=== PATIENT | male | born 1940 | race Caucasian/White ===

== ENCOUNTER 2024-10-21 19:53 | Emergency (ER) | payer MEDICARE, SELFPAY ==
[2024-10-21] VITALS (17 sets, daily range): BP systolic 85–134; BP diastolic 41–68; PULSE 79–91; RESP 14–24; TEMP 36.8; O2SAT 90–97
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
--- NOTE | ~2024-10-21 | CT_ITS ---
EXAMINATION: CT cervical spine wo con DATE: 10/21/2024 21:21 INDICATION: fall TECHNIQUE: Computed tomography (CT) of the cervical spine was performed without intravenous contrast. Automated exposure control and iterative reconstruction technique were employed. The dose-length pro duct was 433.39 mGy-cm. COMPARISON: None. FINDINGS: Vertebral Body Alignment: Intact. Craniocervical and atlantoaxial alignment: Moderate degenerative change. Alignment intact. Osseous structures/fracture: No evidence of a lytic or blastic process in the visualized spine. No e vidence of acute fracture. Cervical soft tissues: The paraspinal soft tissues planes are maintained. Septal thickening in the gerber ngs. Old left-sided rib fractures with partially visualized screw and plate fixation Degenerative changes: Multilevel severe degenerative disc disease. Multilevel mild facet arthropathy. Multilevel severe bilateral neural foraminal narrowing secondary to degenerative changes. Multilevel moderate central canal narrowing secondary to degenerative change. IMPRESSION: No acute fracture or traumatic malalignment in the cervical spine. Mild interstitial edema. Reviewed, dictated and finalized at location K. OMER SOLUTIONS SPECIALIST
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
[2024-10-21] MEDS: ONDANSETRON INJ 4 MG/2 ML VIAL IV PUSH (22:17)
[2024-10-21] MEDS: MORPHINE SULFATE (*CRX) 4 MG/ML INJ IV PUSH (22:17)
[2024-10-22 01:15] VITALS: BP 127/87; PULSE 76; RESP 16; TEMP 37.2; O2SAT 98
== END 2024-10-22 01:16 ==
PROVIDERS: Emergency Provider Emergency Medicine
DX: K56.41 Fecal impaction (principal); S32.82XD Multiple fractures of pelvis without disruption of pelvic ring, subsequent encounter for fracture with routine healing; W06.XXXA Fall from bed, initial encounter
CPT/HCPCS: 70450; 72125; 72192; 96374; 96375; 99284; J2270; J2405

== ENCOUNTER 2024-10-31 07:59 | Emergency (ER) | payer MEDICARE, SELFPAY ==
[2024-10-31 08:04] VITALS: BP 129/65; PULSE 86; RESP 18; TEMP 36.8; O2SAT 94
[2024-10-31 08:29] LABS: Basophils Absolute Auto 0.1 K/mm3 (0.0-0.1); Basophils Percent Auto 0.4 % (0.2-1.2); Eosinophils Absolute Auto 1.8 K/mm3 (0-0.3); Hemoglobin 10.5 g/dL (14.0-18.0); Immature Granulocyte Absolute 0.04 K/mm3 (0.00-0.031); Immature Granulocyte Percent A 0.3 % (0-0.5); Lymphocytes Absolute Auto 2.53 K/mm3 (0.9-3.2); Lymphocytes Percent Auto 19.5 % (18.3-44.2); Mean Corpuscular HGB Conc 32.8 g/dl (32-36); Mean Corpuscular Hemoglobin 30.5 pg (26-34); Mean Platelet Volume 9.6 fl (7.4-10.4); Monocytes Absolute Auto 0.9 K/mm3 (0.1-0.6); Monocytes Percent Auto 7.2 % (2.6-8.5); Neutrophils Absolute Auto 7.6 K/mm3 (1.3-6.7); Neutrophils Percent Auto 58.6 % (45.5-73.1); Platelet Count Result 490 k/mm3 (150-375); Red Blood Count 3.44 M/mm3 (4.6-6.20); Red Cell Distribution Width 18.2 % (11.5-14.5)
[2024-10-31 08:40] LABS: Alanine Aminotransferase 17 U/L (6-50); Alkaline Phosphatase 198 U/L (38-126); Anion Gap 2 mmol/L (4-12); Aspartate Amino Transferase 19 U/L (17-59); Bilirubin,Total 0.5 mg/dL (0.2-1.3); Blood Urea Nitrogen 13 mg/dL (9-20); Calcium 8.5 mg/dL (8.4-10.2); Carbon Dioxide 29 mmol/L (22-30); Chloride 104 mmol/L (98-107); Estimated CRCL calculation 94 ml/min; Estimated Glomerular Filt Rate > 60; Glucose 103 mg/dL (65-110); Potassium 4.4 mmol/L (3.4-5.0); Sodium 135 mmol/L (137-145)
--- NOTE | 2024-10-31 10:06 | ED_ITS ---
HPI - Skin/Abscess/Foreign Bdy General Chief complaint: Skin/Abscess/Foreign Body Stated complaint: gtube infection? Time Seen by Provider: 10/31/24 08:01 History of Present Illness HPI narrative: Patient is an 84-year-old male who presents ER for a evaluation of his G-tube. The tube was reinserted through his previous stoma several days ago. Since then he has developed redness and pustules. No fevers or chills or sweats. Patient not been given any topical or oral antibiotic. Related Data Home Medications ?Medication ?Instructions ?Recorded ?Confirmed ?Last Taken ?Type acetaminophen 500 mg tablet 1,000 mg feeding tube Q8H PRN 10/21/24 10/25/24 10/19/24 13:05 History fever or pain bisacodyl 10 mg rectal suppository 10 mg RECTAL DAILY PRN constipation 10/21/24 10/25/24 Unknown History cholecalciferol (vitamin D3) 25 1,000 unit PO DAILY 10/21/24 10/25/24 10/19/24 08:30 History mcg (1,000 unit) tablet ipratropium 0.5 mg-albuterol 3 mg 3 ml inhalation Q6H PRN shortness 10/21/24 10/21/24 Unknown History (2.5 mg base)/3 mL nebulization of breath or wheezing soln oxycodone 5 mg tablet 5 mg feeding tube Q6H PRN pain 10/21/24 10/25/24 Unknown History polyethylene glycol 3350 17 gram 17 g PO DAILY 10/21/24 10/25/24 10/19/24 08:30 History oral powder packet tamsulosin 0.4 mg capsule 0.4 mg PO DAILY 10/21/24 10/25/24 10/19/24 08:30 History trazodone 150 mg tablet 75 mg PO HS 10/21/24 10/25/24 10/18/24 20:55 History Allergies Allergy/AdvReac Type Severity Reaction Status Date / Time No Known Allergies Allergy Verified 10/25/24 10:29 Review of Systems 2 Constitutional: Constitutional: Reports no additional constitutional complaints PMFSH Past Medical History Medical History (Updated 10/31/24 @ 10:35 by Kd Watkins MD) History of gastrostomy tube placement Gait abnormality Surgical History Surgical History (Updated 10/25/24 @ 13:27 by Juan Rodriguez, DO) History of colon resection History of exploratory laparotomy History of splenectomy Social History Social History (System 10/22/24 @ 07:53 by Amilcar Porter) Smoking status: Former smoker Tobacco type: cigarettes Additional smoking assessment comments: quit smoking 50yrs ago Alcohol intake: current Drinks per week: 3 Substance use: never Do You Feel Safe in your Home?: Yes Lack of Transportation: No Lack of Food: Never True Current Housing: I Have Housing Concerned About Future Housing: No Difficulty Paying Gas/Electric Bills: No Difficulty Paying for Meds: No Currently Unemployed: No Education: High School Diploma/GED Difficulty w/ Childcare or Family Care: No Living arrangements: other Additional living arrangements comments: REHAB. Spiritual care concerns: No Exam 2 Narrative: GENERAL: Well-appearing, well-nourished, and in no acute distress. HEAD: Normocephalic, atraumatic. ENT: Mucous membranes moist. CHEST: Clear to auscultation. No respiratory distress. HEART: Regular rate and rhythm. Normal peripheral pulses. ABDOMEN: Soft, nontender, nondistended. EXTREMITIES: Normal range of motion. No edema. SKIN: Warm, dry. Pustules around the G-tube site with mild erythema of the skin without particular tenderness. Mild redness moving along the border of the ribs and abdomen but no vesicles. NEURO: Alert and oriented x3. PSYCH: Normal mood and affect. Course Course Emergency Course: Discharge back to facility. Will start on bactrim DS, topical bacitracin as well. Vital Signs Vital signs: Vital Signs Temperature 98.3 F 10/31/24 08:04 Pulse Rate 86 10/31/24 08:04 Respiratory Rate 18 10/31/24 08:04 Blood Pressure 129/65 10/31/24 08:04 Pulse Oximetry 94 10/31/24 08:04 Oxygen Delivery Room Air 10/31/24 08:04 Temperature 98.3 F 10/31/24 08:04 Pulse Rate 86 10/31/24 08:04 Respiratory Rate 18 10/31/24 08:04 Blood Pressure 129/65 10/31/24 08:04 Pulse Oximetry 94 10/31/24 08:04 Oxygen Delivery Room Air 10/31/24 08:04 MDM - Skin/Abscess/Foreign Bdy Lab Data 10/31/24 08:24 10/31/24 08:24 Labs: Lab Results 10/31/24 Range/Units 08:24 WBC 13.0 H (4.5-10.0) K/mm3 RBC 3.44 L (4.6-6.20) M/mm3 Hgb 10.5 L (14.0-18.0) g/dL Hct 32.0 L (42.0-52.0) % MCV 93.0 D (80-100) fl MCH 30.5 (26-34) pg MCHC 32.8 (32-36) g/dl RDW 18.2 H (11.5-14.5) % Plt Count 490 H (150-375) k/mm3 MPV 9.6 (7.4-10.4) fl Immature Gran % (Auto) 0.3 (0-0.5) % Neut % (Auto) 58.6 (45.5-73.1) % Lymph % (Auto) 19.5 (18.3-44.2) % Harding % (Auto) 7.2 (2.6-8.5) % Eos % (Auto) 14.0 H (0-4.4) % Baso % (Auto) 0.4 (0.2-1.2) % Lymph # (Auto) 2.53 (0.9-3.2) K/mm3 Harding # (Auto) 0.9 H (0.1-0.6) K/mm3 Eos # (Auto) 1.8 H (0-0.3) K/mm3 Baso # (Auto) 0.1 (0.0-0.1) K/mm3 Abs Immat Gran (auto) 0.04 H (0.00-0.031) K/mm3 Absolute Neuts (auto) 7.6 H (1.3-6.7) K/mm3 Absolute Nucleated RBC 0.000 (0.0-0.012) K/mm3 Nucleated RBC % 0.0 (0.0-0.2) % Sodium 135 L (137-145) mmol/L Potassium 4.4 (3.4-5.0) mmol/L Chloride 104 (98-107) mmol/L Carbon Dioxide 29 (22-30) mmol/L Anion Gap 2 L (4-12) mmol/L BUN 13 (9-20) mg/dL Creatinine 0.50 L (0.7-1.3) mg/dL Estim Creat Clear Calc 94 ml/min Estimated GFR > 60 (59 - ) Glucose 103 (65-110) mg/dL Calcium 8.5 (8.4-10.2) mg/dL Total Bilirubin 0.5 (0.2-1.3) mg/dL AST 19 (17-59) U/L ALT 17 (6-50) U/L Alkaline Phosphatase 198 H (38-126) U/L Total Protein 6.0 L (6.3-8.2) g/dL Albumin 3.0 L (3.5-5.1) g/dL Discharge Plan Discharge Clinical Impression: Abdominal wall cellulitis Patient Disposition: Home, Self-Care Condition: Stable Instructions: Cellulitis (ED) Additional Instructions: Return to the ER if your wound is becoming more red, have fever 100.4? F, have additional concerns. Patient Language: Macedonian Prescriptions: New bacitracin 500 unit/gram ointment 1 applic topical TID Qty: 14 0RF sulfamethoxazole-trimethoprim [Bactrim DS] 800-160 mg tablet 1 tablet PO Q12H Qty: 14 0RF No Action acetaminophen 500 mg tablet 1,000 mg feeding tube Q8H PRN (Reason: fever or pain) ipratropium-albuterol 0.5 mg-3 mg(2.5 mg base)/3 mL solution for nebulization 3 ml inhalation Q6H PRN (Reason: shortness of breath or wheezing) bisacodyl 10 mg suppository 10 mg RECTAL DAILY PRN (Reason: constipation) oxycodone 5 mg tablet 5 mg feeding tube Q6H PRN (Reason: pain) polyethylene glycol 3350 17 gram powder in packet 17 g PO DAILY tamsulosin 0.4 mg capsule 0.4 mg PO DAILY cholecalciferol (vitamin D3) 25 mcg (1,000 unit) tablet 1,000 unit PO DAILY trazodone 150 mg tablet 75 mg PO HS Follow-up/Referrals: Mark Rhodes MD [Primary Care Provider] - 1 Week
[2024-10-31 10:36] VITALS: BP 125/77; PULSE 74; RESP 18; O2SAT 94
[2024-10-31] MEDS: SULFAMETHOXAZOLE/TRIMETHOPRIM 800/160 MG DS TABLET 1 TAB PO (11:28)
[2024-10-31 11:39] VITALS: BP 132/78; PULSE 99; RESP 18; O2SAT 95
--- OUTSIDE RECORDS SUMMARY | 2024-11-07 04:53 | XMS_ITS | Clinical Summary ---
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 Transcath Thpy (09/14/2024 7:43 AM COUNTY PROGRAM TECHNICIAN) Anatomical Region Laterality Modality X-Ray Angiograph y 09/14/2024 6:41 AM COUNTY PROGRAM TECHNICIAN Impressions 09/17/2024 5:40 PM COUNTY PROGRAM TECHNICIAN Impression: 1.Aortogram and bilateral angiogram examination of the bilateral common iliac arteries and second and third order branches. Irregularity/spasm of distal vessels, no active contrast extravasation. 2.Successful empiric embolization of the bilateral internal iliac arteries with Gelfoam, as described above. Report dictated by Jacob Merritt MD, PhD (radiology equipment servicer). > Dictated by Jacob Merritt MD (Sales Representative [employer]) 09/14/2024 6:41 AM I, Arsenio Sahni MD have personally reviewed and interpreted this examination/study. > Interpreting Provider: Arsenio Sahni MD on 09/17/2024 5:40 PM Narrative 09/17/2024 5:40 PM COUNTY PROGRAM TECHNICIAN PROCEDURE: ??IR EMBOLIZATION TRANSCATH THPY, DATE/TIME OF EXAM: ??09/14/2024 4:13 AM, LOCATION ??[facility] History: 42 year old male with polytrauma with multi compartmental hemorrhage, active extravasation both sides pelvis, branches artery, on CT imaging, [facility] image-guided aortogram, possible embolization, and related interventions. Operators: 1.Dr. Arsenio Sahni, Attending Physician 2.Dr. Jacob Merritt, Resident Physician Anesthesia: General anesthesia. Procedure: 1.Ultrasound-guided access of the right common femoral artery was interpreted approach. 2.Lower abdominal aortic and pelvic angiogram. 3.Selective catheterization of the left common iliac artery (1st order) and angiogram. 4.Selective catheterization of the left internal iliac artery (2nd order) and angiogram. 5.Empiric embolization of the left internal iliac artery with Gelfoam under fluoroscopic guidance. 6.Post-embolization angiogram of the left common iliac arteries and its branches. 7.Ultrasound-guided access of the left common femoral artery with retrograde approach. 8.Selective catheterization of the right common iliac artery (1st order) and angiogram. 9.Selective catheterization of the right internal iliac artery (2nd order) and angiogram. 10.Empiric embolization of the right internal iliac artery with Gelfoam under fluoroscopic guidance. 11.Post-embolization angiogram of the right common iliac artery and its branches. 12.Sheath angiogram of the bilateral common femoral arteries. 13.Hemostasis with bilateral placement of 6-Micronesian Angio-Seal closure device is. Fluoroscopic time: 25.3 minutes ?Contrast: 85 mL of Isovue-300 Procedure in detail: ?? Patient anonymous at time of procedure, procedure was performed as an emergency. The patient was brought to the angiography suite and placed supine on the table. The right groin was prepped and draped in the usual sterile fashion. Extruder Operator Horizontal radiograph of the pelvis was obtained and was unremarkable. Pre procedure time out was performed. The patient received intravenous Versed and Fentanyl for conscious sedation. A qualified radiology nurse monitored the patient s vital signs throughout the procedure. Limited ultrasound of the right common femoral artery demonstrated a patent vessel, and the level of its bifurcation was identified. A haider scale image was documented. The right common femoral artery was accessed using a micropuncture needle. The needle entry was documented. ??Following a series of exchanges, a 5-Micronesian vascular sheath was placed. Using a 5 Micronesian Omniflush catheter, a lower abdominal aortic and pelvic angiogram was obtained. The angiogram demonstrated patent internal and external iliac vessels with discernible active extravasation. Limited ultrasound of the left common femoral artery demonstrated a patent vessel, and the level of its bifurcation was identified. A haider scale image was documented. The left ??common femoral artery was accessed using a micropuncture needle. The needle entry was documented. ??Following a series of exchanges, a 5-Micronesian vascular sheath was placed. The left common iliac artery was selectively catheterized with a 4-Micronesian Cobra catheters and angiogram was obtained, which demonstrated patent external and internal iliac arteries. The left internal iliac artery was selectively catheterized with the 4-Micronesian Cobra ??catheter and angiogram was obtained, which demonstrated irregularity of the distal vasculature/spasm, with no active contrast extravasation. Empiric embolization of the left internal iliac artery was then performed with Gelfoam under fluoroscopic guidance. Post-embolization angiogram of the left internal iliac artery demonstrated near stasis of flow to the proximal vessels with distal pruning. Several attempts were made to cannulate the right internal iliac artery. The tortuous nature of the aorta/bifurcation and iliac vessels, these attempts were not successful. Given the emergent nature of the procedure, decision was made to proceed with left groin femoral access to cannulate the right internal iliac. Limited ultrasound of the right common femoral artery demonstrated a patent vessel, and the level of its bifurcation was identified. A haider scale image was documented. The right common femoral artery was accessed using a micropuncture needle. The needle entry was documented. ??Following a series of exchanges, a 5-Micronesian vascular sheath was placed. The right common iliac artery was selectively catheterized with a 4-Micronesian Cobra catheters and angiogram was obtained, which demonstrated irregularity of the distal vasculature/spasm, with no active contrast extravasation. The right external iliac artery was selectively catheterized with the a 5-Micronesian VA2 and 4-Micronesian Cobra catheters and angiogram was obtained, which demonstrated no active contrast extravasation. The right internal iliac artery was selectively catheterized with the 4-Micronesian Cobra ??catheter and angiogram was obtained, which demonstrated active contrast extravasation. Embolization of the right internal iliac artery was then performed with Gelfoam under fluoroscopic guidance. Post-embolization angiogram of the right internal iliac artery demonstrated near stasis of flow to the proximal vessels with distal pruning. A sheath angiogram of the right and left common femoral artery was unremarkable with access above its bifurcation overlying the femoral head. Hemostasis was achieved with a 6-Micronesian Micronesian Angio-Seal closure device. Sterile dressing was applied. The patient tolerated the procedure well and was transferred to SICU in stable condition. There were no immediate complications associated with the procedure. Procedure Note Arsenio Sahni MD - 09/17/2024 PROCEDURE: IR EMBOLIZATION TRANSCATH THPY, DATE/TIME OF EXAM:09/14/2024 4:13 AM, LOCATION [facility] History: 42 year old male with polytrauma with multi compartmental hemorrhage, active extravasation both sides pelvis, branches artery, onCT imaging, [facility] aort[facility], possibleembolization, and related interventions. Operators: 1.Dr. Arsenio Sahni, Attending Physician 2.Dr. Jacob Merritt, Resident Physician Anesthesia: General anesthesia. Procedure: 1.Ultrasound-guided access of the right common femoral artery was interpreted approach. 2.Lower abdominal aortic and pelvic angiogram. 3.Selective catheterization of the left common iliac artery (1st order)and angiogram. 4.Selective catheterization of the left internal iliac artery (2ndorder) and angiogram. 5.Empiric embolization of the left internal iliac artery with Gelfoamunder fluoroscopic guidance. 6.Post-embolization angiogram of the left common iliac arteries and its branches. 7.Ultrasound-guided access of the left common femoral artery with retrograde approach. 8.Selective catheterization of the right common iliac artery (1st order) and angiogram. 9.Selective catheterization of the right internal iliac artery (2ndorder) and angiogram. 10.Empiric embolization of the right internal iliac artery with Gelfoam under fluoroscopic guidance. 11.Post-embolization angiogram of the right common iliac artery and its branches. 12.Sheath angiogram of the bilateral common femoral arteries. 13.Hemostasis with bilateral placement of 6-Micronesian Angio-Seal closure device is. Fluoroscopic time: 25.3 minutes Contrast: 85 mL of Isovue-300 Procedure in detail: Patient anonymous at time of procedure, procedure was performed as an emergency. The patient was brought to the angiography suite and placed supine on the table. The right groin was prepped and draped in the usual sterile fashion. Extruder Operator Horizontal radiograph of the pelvis was obtained and was unremarkable. Pre procedure time out was performed. The patient received intravenous Versed and Fentanyl for conscious sedation. A qualified radiology nurse monitored the patient s vital signs throughout the procedure. Limited ultrasound of the right common femoral artery demonstrated apatent vessel, and the level of its bifurcation was identified. A haider scaleimage was documented. The right common femoral artery was accessed using a micropuncture needle. The needle entry was documented. Following aseries of exchanges, a 5-Micronesian vascular sheath was placed. Using a 5 Micronesian Omniflush catheter, a lower abdominal aortic and pelvic angiogram was obtained. The angiogram demonstrated patent internal and external iliac vessels with discernible active extravasation. Limited ultrasound of the left common femoral artery demonstrated apatent vessel, and the level of its bifurcation was identified. A haider scaleimage was documented. The left common femoral artery was accessed using a micropuncture needle. The needle entry was documented. Following aseries of exchanges, a 5-Micronesian vascular sheath was placed. The left common iliac artery was selectively catheterized with a4-Micronesian Cobra catheters and angiogram was obtained, which demonstrated patent external and internal iliac arteries. The left internal iliac artery was selectively catheterized with the 4-Micronesian Cobra catheter and angiogram was obtained, which demonstrated irregularity of the distal vasculature/spasm, with no active contrast extravasation. Empiric embolization of the left internal iliac artery was thenperformed with Gelfoam under fluoroscopic guidance. Post-embolization angiogram of the left internal iliac artery demonstrated near stasis of flow to the proximal vessels with distal pruning. Several attempts were made to cannulate the right internal iliac artery. The tortuous nature of the aorta/bifurcation and iliac vessels, these attempts were not successful. Given the emergent nature of theprocedure, decision was made to proceed with left groin femoral access to cannulate the right internal iliac. Limited ultrasound of the right common femoral artery demonstrated apatent vessel, and the level of its bifurcation was identified. A haider scaleimage was documented. The right common femoral artery was accessed using a micropuncture needle. The needle entry was documented. Following aseries of exchanges, a 5-Micronesian vascular sheath was placed. The right common iliac artery was selectively catheterized with a4-Micronesian Cobra catheters and angiogram was obtained, which demonstratedirregularity of the distal vasculature/spasm, with no active contrast extravasation. The right external iliac artery was selectively catheterized with the a 5-Micronesian VA2 and 4-Micronesian Cobra catheters and angiogram was obtained,which demonstrated no active contrast extravasation. The right internal iliac artery was selectively catheterized with the 4-Micronesian Cobra catheter and angiogram was obtained, which demonstrated active contrast extravasation. Embolization of the right internal iliac artery was then performed with Gelfoam under fluoroscopic guidance. Post-embolization angiogram of the right internal iliac artery demonstrated near stasis of flow to the proximal vessels with distal pruning. A sheath angiogram of the right and left common femoral artery was unremarkable with access above its bifurcation overlying the femoralhead. Hemostasis was achieved with a 6-Micronesian Micronesian Angio-Seal closuredevice. Sterile dressing was applied. The patient tolerated the procedure well and was transferred to SICU in stable condition. There were no immediate complications associated withthe procedure. Impression: 1.Aortogram and bilateral angiogram examination of the bilateral common iliac arteries and second and third order branches. Irregularity/spasmof distal vessels, no active contrast extravasation. 2.Successful empiric embolization of the bilateral internal iliacarteries with Gelfoam, as described above. Report dictated by Jacob Merritt MD, PhD (radiology equipment servicer). > Dictated by Jacob Merritt MD (Sales Representative [employer]) 46:41 AM I, Arsenio Sahni MD have personally reviewed and interpreted this examination/study. > Interpreting Provider: Arsenio Sahni MD on 09/17/2024 5:40 PM Kendal Demarco MD IR ORDERABLES * PREPARE FFP UNIT(S), 6 Units (09/14/2024 5:04 AM COUNTY PROGRAM TECHNICIAN) Unit Description Thawed Plasma 5D [facility] Unit ABO A [facility] Unit Rh POS [facility] Product Number [id number] [facility] Unit Donor # [id number] [facility] Unit Status transfused [facility] Product [facility] [id number] [facility] Blood Type Barcode 6200 [facility] Expiration Date [facility] Unit Description Thawed Plasma 5D [facility] Unit ABO A [facility] Unit POS [facility] Product Number [id number] [facility] Unit Donor # [id number] [facility] Unit Status released [facility] Product [facility] [id number] [facility] Blood Type Barcode 6200 [facility] Expiration Date [facility] Unit Description Thawed Plasma 5D [facility] Unit ABO A [facility] Unit POS [facility] Product Number [id number] [facility] Unit Donor # [id number] [facility] Unit Status released [facility] Product [facility] [id number] [facility] Blood Type Barcode 6200 [facility] Expiration Date [facility] Unit Description Thawed Plasma 5D [facility] Unit ABO A [facility] Unit POS [facility] Product [facility] [id number] [facility] Unit Donor # [id number] [facility] Unit Status transfused [facility] Product [facility] [id number] [facility] Blood Type Barcode 6200 [facility] Expiration Date [facility] Unit Description Thawed Plasma 5D [facility] Unit ABO A [facility] Unit POS [facility] Product Number [id number] [facility] Unit Donor # [id number] [facility] Unit Status released [facility] Product [facility] [id number] [facility] Blood Type Barcode 6200 [facility] Expiration Date [facility] Unit Description Thawed Plasma 5D [facility] Unit ABO AB [facility] Unit POS [facility] Product Number [id number] [facility] Unit Donor # [id number] [facility] Unit Status transfused [facility] Product Code [id number] [facility] Blood Type Barcode 8400 [facility] Expiration Date [facility] Blood Bank BLOOD SPECIMEN / Unknown 09/14/2024 12:27 AM COUNTY PROGRAM TECHNICIAN Vivi Braxton MD LAB - BLOOD BANK ORD ERAFRANCISCO Performing Organization Address [facility]/ZIP Co de Phone Number [facility] [address] [place] [address], [place] [phone] * PREPARE PLATELET PHERESIS UNIT(S), 1 Units (09/14/2024 5:00 AM COUNTY PROGRAM TECHNICIAN) Unit Description LR PLT Phere B7 [facility] Unit ABO O [facility] Unit Rh POS [facility] Product Number P27 [facility] Unit Donor # [id number] [facility] Unit Status released [facility] Product Code [id number] [facility] Blood Type Barcode 5100 [facility] Expiration Date [id number] S BLOOD BANK LAB Blood Bank BLOOD SPECIMEN / Unknown 09/14/2024 12:27 AM COUNTY PROGRAM TECHNICIAN Vivi Braxton MD LAB - BLOOD BANK ORD [place] Performing Organization Address [facility]/ZIP Co de Phone Number [facility] [address] [place] [address], [facility] [phone] * PATHOLOGY TISSUE (09/14/2024 3:31 AM COUNTY PROGRAM TECHNICIAN) Case Report Surgical Pathology Report ? Case: [id number] ? Authorizing Provider: ??Kendal Demarco MD ? Collected: ? 09/14/2024 03:31 AM ? Ordering Location: ? [facility] ?Received: ?09/14/2024 08:07 AM ? Pathologist: ? Pippa Keene MD ? Specimen: ?Spleen ? 09/15/2024 8:31 AM [facility] Final Diagnosis Spleen, splenectomy: - Capsular disruption with hemorrhage and red pulp expansion consistent with trauma history 09/15/2024 8:31 AM [facility] Microscopic Description and Comment Microscopic examination substantiates the above captioned diagnosis. 09/15/2024 8:31 AM [facility] Clinical History Traumatic injury 09/15/2024 8:31 AM [facility] Gross Description The requisition and specimen container(s) are identified with the patient's trauma designation, [facility] . Received fresh, specimen A , consists of a 219 g, 17.6 x 7.8 x 3.0 cm spleen surfaced by a haider-brown, smooth, dusky capsule with focal areas of bull-white stippling. There is a 7.4 x 3.5 cm transverse capsular tear present, which extends from the hilum and has a moderate amount of attached red-brown clotted blood. The specimen is step sectioned. The cut surfaces show red-brown, homogenous, splenic parenchyma with focal areas of extravasated blood extending throughout the spleen. Commission Clerk sections are submitted in three cassettes labeled as follows: A1 soft tissue and vessel margins from the hilum, en face A2 section of capsular tear A3 additional section of splenic parenchyma with intraparenchymal hemorrhage. RB 09/15/2024 8:31 AM [facility] Pathologist Location at [facility] 09/15/2024 8:31 AM [facility] Disclaimer The performance characteristics of all immunohistochemical and indirect immunofluorescence stains (if any) cited in this report were determined by the Histopathology Laboratory of [facility]. Some of these tests were developed by our own laboratory and have not been cleared or approved by the US Food and Drug Administration. The FDA does not require this test to go through premarket FDA review. These tests are used for clinical purposes. They should not be regarded as investigational or for research. This laboratory is certified under the Clinical Laboratory Improvement Amendments (CLIA) as qualified to perform high complexity clinical laboratory testing. This case has been personally reviewed and interpreted by the attending (teaching) pathologist. 09/15/2024 8:31 AM [facility] Embedded Images 09/15/2024 8:31 AM [facility] Biopsy, Excision ENTIRE SPLEEN / Unknown 09/14/2024 3:31 AM COUNTY PROGRAM TECHNICIAN 09/14/2024 8:07 AM COUNTY PROGRAM TECHNICIAN Comment:Pre-op diagnosis: TRAUMA Kendal Demarco MD LAB - PATHOLOGY/CYTO LOGY ORDERABLES Performing Organization Address City/State/[facility] Co de Phone Number [facility] [address] [phone] * TRANSFUSE RED BLOOD CELL LEUKOREDUCED UNIT(S) (09/14/2024 2:50 AM COUNTY PROGRAM TECHNICIAN) Nitish Mcclellan DO NURSING - BLOOD PROD TRANSFUSION * TRANSFUSE FRESH FROZEN PLASMA UNIT(S) (09/14/2024 2:50 AM COUNTY PROGRAM TECHNICIAN) Nitish Mcclellan DO NURSING - BLOOD PROD TRANSFUSION * TRANSFUSE RED BLOOD CELL LEUKOREDUCED UNIT(S) (09/14/2024 2:41 AM COUNTY PROGRAM TECHNICIAN) Ntiish Mcclellan DO NURSING - BLOOD PROD TRANSFUSION * TRANSFUSE FRESH FROZEN PLASMA UNIT(S) (09/14/2024 2:41 AM COUNTY PROGRAM TECHNICIAN) Nitish Mcclellan DO NURSING - BLOOD PROD TRANSFUSION * IV PLACEMENT PERFORMABLE (09/14/2024 2:29 AM COUNTY PROGRAM TECHNICIAN) Narrative Elise Braun DO - 09/14/2024 2:29 AM COUNTY PROGRAM TECHNICIAN Elise Braun DO ? 09/14/2024 ??2:29 AM Peripheral IV Line Placement: Patient Location: ??OR Insertion Time: ??09/14/2024 1:50 AM Procedure: IV start ([id number]) Procedure Section: ?? Skin Prep: alcohol. Orientation: left Location: forearm Local Anesthetic Used? ??No Catheter Gauge: 16 Number of Attempts: 1. Procedure Tolerance: performed while patient under general anesthesia. Staff Section ? Anesthesia Provider: Nitish Mcclellan DO, Performed the procedure Nitish Mcclellan DO GENERAL ANESTHESIA O RDERABLES * ARTERIAL LINE PERFORMABLE (09/14/2024 2:28 AM COUNTY PROGRAM TECHNICIAN) Narrative Elise Braun DO - 09/14/2024 2:28 AM COUNTY PROGRAM TECHNICIAN Elise Braun DO ? 09/14/2024 ??2:29 AM Arterial Line Placement Procedure Note Patient Location: OR. Insertion Time: 09/14/2024 1:50 AM Procedure: Arterial Line ([id number]) Procedure Section ?? Indications: continuous blood pressure monitoring, hypotension and blood sampling needed. Consent: informed consent could not be obtained due to the patient's condition, urgency of situation, and/or lack of family members to sign consent. Skin Prep: Chloraprep. Orientation: Right. Site: radial. Site Identification: ultrasound guided with sterile sleeve and gel. Sterile Technique: cap and mask. Gauge: 20. Catheter Length: 1 and 3/4 inch. Catheter Type: Arrow. Seldinger Technique Used? ??Yes Number of Attempts: 1. Line Secured with: Tegaderm. Procedure Tolerance: tolerated well. Events: none. Patient Sedated? ??Yes Local Anesthetic Used? ??No Sedation Types: general anesthesia Staff Section ? Anesthesia Provider: Elise Braun DO, Performed the procedure ? Provider #1: Nitish Mcclellan DO. Nitish Mcclellan DO GENERAL ANESTHESIA O RDERABLES * TRANSFUSE RED BLOOD CELL LEUKOREDUCED UNIT(S) (09/14/2024 2:26 AM COUNTY PROGRAM TECHNICIAN) Nitish Mcclellan DO NURSING - BLOOD PROD TRANSFUSION * TRANSFUSE FRESH FROZEN PLASMA UNIT(S) (09/14/2024 2:08 AM COUNTY PROGRAM TECHNICIAN) Nitish Mcclellan DO NURSING - BLOOD PROD TRANSFUSION * 1 Units (09/14/2024 1:26 AM COUNTY PROGRAM TECHNICIAN) Unit Description LR Whole BLood [facility] Unit ABO O [facility] Unit Rh POS [facility] Product Number [id number] [facility] Unit Donor # [id number] [facility] Unit Status transfused [facility] Product Code [id number] [facility] Blood Type Barcode 5100 [facility] Expiration Date S BLOOD BANK LAB Unit Description LR Whole BLood [facility] Unit ABO O [facility] Unit Rh POS [facility] Product Number [id number] [facility] Unit Donor # [id number] [facility] Unit Status transfused [facility] Product Code [id number] [facility] Blood Type Barcode 5100 [facility] Expiration Date S BLOOD BANK LAB Blood Bank BLOOD SPECIMEN / Unknown 09/14/2024 12:27 AM COUNTY PROGRAM TECHNICIAN Kendal Demarco MD LAB - BLOOD BANK ORD ERABLES [facility] [address] [place] [address], [facility] [phone] * CT THORAX ABDOMEN PELVIS W CONT - Abdominal - Pelvis trauma, blunt/penetrating (09/14/2024 12:42 AMCST) Anatomical Region Laterality Modality Chest, Abdomen, Pelvis Computed Tomography 09/14/2024 12:5 3 AM COUNTY PROGRAM TECHNICIAN Impressions 09/14/2024 6:09 AM COUNTY PROGRAM TECHNICIAN Impression: Multiple traumatic injuries. 1.Residual left moderate volume pneumothorax with a small amount of hemorrhage in the left pleural space. There are multiple pulmonary contusions in the left lung with left lower lobe atelectasis. There are multiple traumatic pneumatoceles/lacerations in the left upper and lower lobes at the site of rib fractures. 2.Traumatic defects in the left chest wall at the site of rib fractures with disruption of the intercostal fascial planes (series 4 image 60, 82). 3.Pneumomediastinum. 4.Multiple splenic lacerations measuring 2 to 3 cm in depth consistent with a grade 2 splenic injury. There is a small amount of perisplenic hemorrhage. There are foci of contrast blush along the posterior medial aspect of the inferior spleen which appears to expand on the delayed images consistent with active bleeding. 5.Small Hyperdense focus layering in the dependent small bowel in the right hemiabdomen which is not definitively noted on the delayed image. This could represent small amount of hemorrhage (series 5 image 113, series 9 image 57). 6.Large volume pneumoperitoneum. This is favored to be secondary to a diaphragmatic injury to the left hemidiaphragm (series 8 image 71, series 3 image 153 as well as at series 9 image 66 and series 8 image 52). The diaphragmatic defect measures approximately 4 cm. There is no obvious injury to the stomach or bowel to suggest that the source of the pneumoperitoneum is from the bowel. 7.Fat tissue contusion in the left paracolic gutter with contrast blush expanding on the delayed imaging consistent with active bleeding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
--- OUTSIDE RECORDS SUMMARY | 2024-11-07 04:53 | XMS_ITS | Referral Summary ---
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 [address] [place] [address], [facility] [phone] from Last 3 Months Advance Directives * Full Code (Latest Code Status on File) Date Activated Date Inactivated Comments 09/14/2024 4:38 AM 10/20/2024 5:22 PM Care Teams Transport Coordinator Relationship Specialty Start Date End Date Unknown, Provider PCP - General 10/28/24 Ivis Marie, GLORIA Registered Nurse 09/14/24
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
--- OUTSIDE RECORDS SUMMARY | 2024-11-07 04:55 | XMS_ITS | Encounter Summary ---
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 BLOOD STAT 09/14/2024 12:13 AM ACCOUNTS CLERK ALCOHOL ETHYL BLOOD STAT 09/14/2024 12:13 AM ACCOUNTS CLERK documented in this encounter Results * APHERESIS/TRANSFUSION ORDER (10/22/2024 1:12 PM ACCOUNTS CLERK) Narrative 10/22/2024 1:12 PM ACCOUNTS CLERK Ordered by an unspecified provider. Scanned Document NURSING - VITAL SIGN S AND ASSESSMENT * (ABNORMAL) CBC W AUTO DIFFERENTIAL (10/17/2024 12:16 PM ACCOUNTS CLERK) WBC 10.1 4.0 - 10.7 x10E9/L 10/17/2024 12:54 PM [facility] RBC Count 4.08(L) 4.30 - 5.80 x10E12/L 10/17/2024 12:54 PM [facility] Hemoglobin 12.0(L) 13.3 - 17.5 g/dL 10/17/2024 12:54 PM [facility] Hematocrit 38.0(L) 38.7 - 51.1 % 10/17/2024 12:54 PM [facility] MCV 93.1 80.0 - 98.0 fL 10/17/2024 12:54 PM [facility] MCH 29.4 26.7 - 33.6 pg 10/17/2024 12:54 PM [facility] MCHC 31.6(L) 31.7 - 36.3 g/dL 10/17/2024 12:54 PM [facility] RDW-CV 17.6(H) 11.3 - 14.8 % 10/17/2024 12:54 PM [facility] Platelet Count 428(H) 150 - 420 x10E9/L 10/17/2024 12:54 PM [facility] MPV 10.8 7.8 - 11.4 fL 10/17/2024 12:54 PM [facility] Neutrophil % 39.4(L) 41.0 - 74.0 % 10/17/2024 12:54 PM [facility] Lymphocyte % 39.0 17.0 - 47.0 % 10/17/2024 12:54 PM [facility] Monocyte % 9.4 3.0 - 11.0 % 10/17/2024 12:54 PM [facility] Eosinophil % 10.5(H) 0.0 - 7.0 % 10/17/2024 12:54 PM [facility] Basophil % 1.4 0.0 - 1.6 % 10/17/2024 12:54 PM [facility] Immature Granulocytes % 0.3 0.0 - 1.0 % 10/17/2024 12:54 PM [facility] Neutrophil Absolute 3.96 1.60 - 7.50 x10E9/L 10/17/2024 12:54 PM [facility] Lymphocyte Absolute 3.92 1.00 - 4.40 x10E9/L 10/17/2024 12:54 PM ACCOUNTS CLERK [facility] Monocyte Absolute 0.94 0.15 - 1.00 x10E9/L 10/17/2024 12:54 PM ACCOUNTS CLERK [facility] Eosinophil Absolute 1.06(H) 0.00 - 0.60 x10E9/L 10/17/2024 12:54 PM ACCOUNTS CLERK [facility] Basophil Absolute 0.14(H) 0.00 - 0.13 x10E9/L 10/17/2024 12:54 PM ACCOUNTS CLERK [facility] Blood BLOOD SPECIMEN / Unknown Lab Venipuncture / Unknown 10/17/2024 12:16 PM ACCOUNTS CLERK 10/17/2024 12:45 PM ACCOUNTS CLERK Kosta Corral MAKE UP OPERATOR [facility] - HEMATOLOG Y ORDERABLES [address] [phone], [facility] [phone] * PHOSPHORUS BLOOD (10/17/2024 12:16 PM ACCOUNTS CLERK) Phosphorus 3.4 2.8 - 5.1 mg/dL 10/17/2024 1:15 PM ACCOUNTS CLERK [facility] Blood BLOOD SPECIMEN / Unknown Lab Venipuncture / Unknown 10/17/2024 12:16 PM ACCOUNTS CLERK 10/17/2024 12:45 PM ACCOUNTS CLERK Kosta Corral MAKE UP OPERATOR [facility] - CHEMISTRY ORDERABLES [address] [phone], [facility] [phone] * MAGNESIUM BLOOD (10/17/2024 12:16 PM ACCOUNTS CLERK) Magnesium 2.1 1.6 - 2.6 mg/dL 10/17/2024 1:15 PM ACCOUNTS CLERK [facility] Blood BLOOD SPECIMEN / Unknown Lab Venipuncture / Unknown 10/17/2024 12:16 PM ACCOUNTS CLERK 10/17/2024 12:45 PM ACCOUNTS CLERK Kosta Medina Shayna MAKE UP OPERATOR [facility] - CHEMISTRY ORDERABLES [facility] [address] [phone], [facility] [phone] * (ABNORMAL) BASIC METABOLIC PANEL (CALCIUM TOTAL) (10/17/2024 12:16 PM ACCOUNTS CLERK) BUN 14 7 - 26 mg/dL 10/17/2024 1:15 PM [facility] Creatinine 0.66(L) 0.71 - 1.16 mg/dL 10/17/2024 1:15 PM [facility] Sodium 139 136 - 145 mmol/L 10/17/2024 1:15 PM [facility] Potassium 4.3 3.5 - 4.5 mmol/L 10/17/2024 1:15 PM [facility] Chloride 102 98 - 107 mmol/L 10/17/2024 1:15 PM [facility] CO2 30(H) 22 - 29 mmol/L 10/17/2024 1:15 PM [facility] Glucose 100(H) 70 - 99 mg/dL 10/17/2024 1:15 PM [facility] Calcium 9.3 8.4 - 10.2 mg/dL 10/17/2024 1:15 PM [facility] Anion Gap 7 6 - 16 10/17/2024 1:15 PM [facility] BUN/Creatinine Ratio 21 7 - 23 10/17/2024 1:15 PM [facility] Osmolality Calculated 289 275 - 295 mOsm/kg 10/17/2024 1:15 PM [facility] eGFR by CKD-EPI >90 >=90 mL/min/1.7 3 m2 10/17/2024 1:15 PM [facility] Blood BLOOD SPECIMEN / Unknown Lab Venipuncture / Unknown 10/17/2024 12:16 PM ACCOUNTS CLERK 10/17/2024 12:45 PM ACCOUNTS CLERK Kosta R Shayna MAKE UP OPERATOR [facility] [facility] - CHEMISTRY ORDERABLES [facility] [address] [place] [phone], [facility] [phone] * PHOSPHORUS BLOOD (10/14/2024 5:53 AM ACCOUNTS CLERK) Phosphorus 3.7 2.8 - 5.1 mg/dL 10/14/2024 7:20 AM [facility] Blood BLOOD SPECIMEN / Unknown Lab Venipuncture / Unknown 10/14/2024 5:53 AM ACCOUNTS CLERK 10/14/2024 6:41 AM ACCOUNTS CLERK Kosta Corral MAKE UP OPERATOR [facility] [facility] - CHEMISTRY ORDERABLES Performing Organization Address City/[facility]/ZIP Co de Phone Number [address] [phone], [facility] [phone] * MAGNESIUM BLOOD (10/14/2024 5:53 AM ACCOUNTS CLERK) Magnesium 2.0 1.6 - 2.6 mg/dL 10/14/2024 7:20 AM [facility] Blood BLOOD SPECIMEN / Unknown Lab Venipuncture / Unknown 10/14/2024 5:53 AM ACCOUNTS CLERK 10/14/2024 6:41 AM ACCOUNTS CLERK Kosta Corral MAKE UP OPERATOR [facility] - CHEMISTRY ORDERABLES Performing Organization Address City/[facility]/ZIP Co de Phone Number [address] [phone], [facility] [phone] * (ABNORMAL) BASIC METABOLIC PANEL (CALCIUM TOTAL) (10/14/2024 5:53 AM ACCOUNTS CLERK) BUN 16 7 - 26 mg/dL 10/14/2024 7:20 AM [facility] Creatinine 0.58(L) 0.71 - 1.16 mg/dL 10/14/2024 7:20 AM [facility] Sodium 136 136 - 145 mmol/L 10/14/2024 7:20 AM [facility] Potassium 4.3 3.5 - 4.5 mmol/L 10/14/2024 7:20 AM [facility] Chloride 101 98 - 107 mmol/L 10/14/2024 7:20 AM [facility] CO2 29 22 - 29 mmol/L 10/14/2024 7:20 AM [facility] Glucose 116(H) 70 - 99 mg/dL 10/14/2024 7:20 AM [facility] Calcium 8.9 8.4 - 10.2 mg/dL 10/14/2024 7:20 AM [facility] Anion Gap 6 6 - 16 10/14/2024 7:20 AM [facility] BUN/Creatinine Ratio 28(H) 7 - 23 10/14/2024 7:20 AM [facility] Osmolality Calculated 284 275 - 295 mOsm/kg 10/14/2024 7:20 AM [facility] eGFR by CKD-EPI >90 >=90 mL/min/1.7 3 m2 10/14/2024 7:20 AM [facility] Blood BLOOD SPECIMEN / Unknown Lab Venipuncture / Unknown 10/14/2024 5:53 AM ACCOUNTS CLERK 10/14/2024 6:41 AM ACCOUNTS CLERK Kosta Corral MAKE UP OPERATOR [facility] [facility] - CHEMISTRY ORDERABLES [facility] [address] [place] [phone], [facility] [phone] * XR Scapula Left (10/13/2024 2:20 PM ACCOUNTS CLERK) Anatomical Region Laterality Modality Upper Extremity Digital Radiogra phy 10/14/2024 3:03 PM ACCOUNTS CLERK Narrative 10/14/2024 3:06 PM ACCOUNTS CLERK PROCEDURE: ??XR SCAPULA LEFT DATE/TIME OF EXAM: [...] XR Pelvis Judet Views (10/13/2024 2:19 PM ACCOUNTS CLERK) Anatomical Region Laterality Modality Pelvis Digital Radiogra phy 10/14/2024 2:28 PM ACCOUNTS CLERK Impressions 10/14/2024 2:31 PM ACCOUNTS CLERK IMPRESSION: Partially visualized multiple healing pelvic fractures as described above. > Dictated by Amira Rodriguez MD, (residential director). > Interpreting Provider: Maryanne Horner MD on 10/14/2024 2:31 PM Narrative 10/14/2024 2:31 PM ACCOUNTS CLERK PROCEDURE: ??XR PELVIS AP W INLET OUTLET, XR PELVIS JUDET VIEWS DATE/TIME OF EXAM: ??10/13/2024 2:19 PM CLINICAL INFORMATION: None relevant/not provided if blank. Indication: S32.9XXA: Closed displaced fracture of pelvis, unspecified part of pelvis, initial encounter ([facility]) Additional History: COMPARISON: 10/06/2024. Judet Views: Redemonstration [...] of pelvis, unspecifiedpart of pelvis, initial encounter ([facility]) Additional History: COMPARISON: 10/06/2024. Judet Views: Redemonstration [...] describedabove. > Dictated by Amira Rodriguez MD, (residential director). > Interpreting Provider: Maryanne Horner MD on 10/14/2024 2:31 PM Gabriela Perales PA-C DIAGNOSTIC IMAGING ORDERABLES * XR Pelvis AP W Inlet Outlet (10/13/2024 2:19 PM ACCOUNTS CLERK) Anatomical Region Laterality Modality Pelvis Digital Radiogra phy 10/14/2024 2:28 PM ACCOUNTS CLERK Impressions 10/14/2024 2:31 PM ACCOUNTS CLERK IMPRESSION: Partially visualized multiple healing pelvic fractures as described above. > Dictated by Amira Rodriguez MD, (residential director). > Interpreting Provider: Maryanne Horner MD on 10/14/2024 2:31 PM Narrative 10/14/2024 2:31 PM ACCOUNTS CLERK PROCEDURE: ??XR PELVIS AP W INLET OUTLET, XR PELVIS JUDET VIEWS DATE/TIME OF EXAM: ??10/13/2024 2:19 PM CLINICAL INFORMATION: None relevant/not provided if blank. Indication: S32.9XXA: Closed displaced fracture of pelvis, unspecified part of pelvis, initial encounter ([facility]) Additional History: COMPARISON: 10/06/2024. Judet Views: Redemonstration [...] of pelvis, unspecifiedpart of pelvis, initial encounter ([facility]) Additional History: COMPARISON: 10/06/2024. Judet Views: Redemonstration [...] describedabove. > Dictated by Amira Rodriguez MD, (residential director). > Interpreting Provider: Maryanne Horner MD on 10/14/2024 2:31 PM Gabriela Perales PA-C DIAGNOSTIC IMAGING ORDERABLES * PHOSPHORUS BLOOD (10/12/2024 3:40 PM ACCOUNTS CLERK) Phosphorus 3.8 2.8 - 5.1 mg/dL 10/12/2024 4:10 PM ACCOUNTS CLERK [facility] Blood BLOOD SPECIMEN / Unknown Lab Venipuncture / Unknown 10/12/2024 3:40 PM ACCOUNTS CLERK 10/12/2024 3:44 PM ACCOUNTS CLERK Kosta Medina Shayna MAKE UP OPERATOR [facility] - CHEMISTRY ORDERABLES [facility] [address] [place] [address], [place] [phone] * MAGNESIUM BLOOD (10/12/2024 3:40 PM ACCOUNTS CLERK) Magnesium 2.2 1.6 - 2.6 mg/dL 10/12/2024 4:10 PM [facility] Blood BLOOD SPECIMEN / Unknown Lab Venipuncture / Unknown 10/12/2024 3:40 PM ACCOUNTS CLERK 10/12/2024 3:44 PM ACCOUNTS CLERK Kosta Medina Shayna MAKE UP OPERATOR [facility] [facility] - CHEMISTRY ORDERABLES Performing Organization Address [facility]/State/ZIP Co de Phone Number [facility] [address] [place] [phone], [facility] [phone] * (ABNORMAL) BASIC METABOLIC PANEL (CALCIUM TOTAL) (10/12/2024 3:40 PM ACCOUNTS CLERK) BUN 16 7 - 26 mg/dL 10/12/2024 4:10 PM [facility] Creatinine 0.57(L) 0.71 - 1.16 mg/dL 10/12/2024 4:10 PM [facility] Sodium 134(L) 136 - 145 mmol/L 10/12/2024 4:10 PM [facility] Potassium 4.5 3.5 - 4.5 mmol/L 10/12/2024 4:10 PM [facility] Chloride 105 98 - 107 mmol/L 10/12/2024 4:10 PM [facility] CO2 25 22 - 29 mmol/L 10/12/2024 4:10 PM [facility] Glucose 105(H) 70 - 99 mg/dL 10/12/2024 4:10 PM [facility] Calcium 9.2 8.4 - 10.2 mg/dL 10/12/2024 4:10 PM [facility] Anion Gap 4(L) 6 - 16 10/12/2024 4:10 PM [facility] BUN/Creatinine Ratio 28(H) 7 - 23 10/12/2024 4:10 PM ACCOUNTS CLERK [facility] Osmolality Calculated 280 275 - 295 mOsm/kg 10/12/2024 4:10 PM ACCOUNTS CLERK [facility] eGFR by CKD-EPI >90 >=90 mL/min/1.7 3 m2 10/12/2024 4:10 PM ACCOUNTS CLERK [facility] Blood BLOOD SPECIMEN / Unknown Lab Venipuncture / Unknown 10/12/2024 3:40 PM ACCOUNTS CLERK 10/12/2024 3:44 PM ACCOUNTS CLERK Kosta Corral MAKE UP OPERATOR [employer] [facility] - CHEMISTRY ORDERABLES [facility] [address] [place] [address], [facility] [phone] * CT Cervical Spine Wo Contrast (10/08/2024 3:04 PM ACCOUNTS CLERK) Anatomical Region Laterality Modality Spine Computed Tomogra phy 10/09/2024 11:2 7 AM ACCOUNTS CLERK Impressions 10/11/2024 5:43 PM ACCOUNTS CLERK IMPRESSION: 1.Healing nondisplaced/minimally displaced fracture of the [...] report is dictated by Gigi Michelle DO, (residential director) IJuan MD have personally reviewed and interpreted this examination/study. > Interpreting Provider: Juan Ascencio MD on 10/11/2024 5:43 PM Narrative 10/11/2024 5:43 PM ACCOUNTS CLERK PROCEDURE: ??CT CERVICAL SPINE WO CONTRAST, DATE/TIME OF EXAM: ??10/08/2024 3:04 PM, LOCATION ??[facility] INDICATION: S22.43XA: Multiple fractures of ribs, bilateral, [...] CONTRAST, DATE/TIME OF EXAM:10/08/2024 3:04 PM, LOCATION [facility] INDICATION: S22.43XA: Multiple fractures of ribs, bilateral, [...] report is dictated by Gigi Michelle DO, (residential director) IJuan MD have personally reviewed and interpretedthis examination/study. > Interpreting Provider: Juan Ascencio MD on 10/11/2024 5:43 PM Bong Edmondson MD CT ORDERABLES * (ABNORMAL) CBC W/O DIFFERENTIAL (10/08/2024 7:07 AM ACCOUNTS CLERK) [facility] WBC 9.3 4.0 - 10.7 x10E9/L 10/08/2024 8:08 AM ACCOUNTS CLERK [facility] RBC Count 3.42(L) 4.30 - 5.80 x10E12/L 10/08/2024 8:08 AM [facility] Hemoglobin 10.0(L) 13.3 - 17.5 g/dL 10/08/2024 8:08 AM [facility] Hematocrit 32.3(L) 38.7 - 51.1 % 10/08/2024 8:08 AM [facility] MCV 94.4 80.0 - 98.0 fL 10/08/2024 8:08 AM [facility] MCH 29.2 26.7 - 33.6 pg 10/08/2024 8:08 AM [facility] MCHC 31.0(L) 31.7 - 36.3 g/dL 10/08/2024 8:08 AM [facility] RDW-CV 17.1(H) 11.3 - 14.8 % 10/08/2024 8:08 AM [facility] Platelet Count 837(H) 150 - 420 x10E9/L 10/08/2024 8:08 AM [facility] MPV 10.8 7.8 - 11.4 fL 10/08/2024 8:08 AM [facility] Blood BLOOD SPECIMEN / Unknown Lab Venipuncture / Unknown 10/08/2024 7:07 AM ACCOUNTS CLERK 10/08/2024 7:59 AM ACCOUNTS CLERK Tessa Gonzáles PA-C LAB - HEMATOLOGY ORD ERABLES [place] [id number] [place] [address], [facility] [phone] * MAGNESIUM BLOOD (10/08/2024 7:07 AM ACCOUNTS CLERK) Magnesium 2.2 1.6 - 2.6 mg/dL 10/08/2024 8:29 AM [facility] Blood BLOOD SPECIMEN / Unknown Lab Venipuncture / Unknown 10/08/2024 7:07 AM ACCOUNTS CLERK 10/08/2024 7:58 AM ACCOUNTS CLERK Tessa Gonzáles PA-C LAB - CHEMISTRY ORDE [facility] [address] [place] [address], [facility] [phone] * PHOSPHORUS BLOOD (10/08/2024 7:07 AM ACCOUNTS CLERK) Phosphorus 3.5 2.8 - 5.1 mg/dL 10/08/2024 8:29 AM [facility] Blood BLOOD SPECIMEN / Unknown Lab Venipuncture / Unknown 10/08/2024 7:07 AM ACCOUNTS CLERK 10/08/2024 7:58 AM ACCOUNTS CLERK Tessa Gonzáles PA-C LAB - CHEMISTRY NATYE [facility] [address] [place] [address], [facility] [phone] * (ABNORMAL) BASIC METABOLIC PANEL (CALCIUM TOTAL) (10/08/2024 7:07 AM ACCOUNTS CLERK) BUN 19 7 - 26 mg/dL 10/08/2024 8:29 AM [facility] Creatinine 0.51(L) 0.71 - 1.16 mg/dL 10/08/2024 8:29 AM [facility] Sodium 139 136 - 145 mmol/L 10/08/2024 8:29 AM [facility] Potassium 4.3 3.5 - 4.5 mmol/L 10/08/2024 8:29 AM [facility] Chloride 106 98 - 107 mmol/L 10/08/2024 8:29 AM [facility] CO2 27 22 - 29 mmol/L 10/08/2024 8:29 AM [facility] Glucose 124(H) 70 - 99 mg/dL 10/08/2024 8:29 AM [facility] Calcium 8.6 8.4 - 10.2 mg/dL 10/08/2024 8:29 AM [facility] Anion Gap 6 6 - 16 10/08/2024 8:29 AM [facility] BUN/Creatinine Ratio 37(H) 7 - 23 10/08/2024 8:29 AM [facility] Osmolality Calculated 292 275 - 295 mOsm/kg 10/08/2024 8:29 AM [facility] eGFR by CKD-EPI >90 >=90 mL/min/1.7 3 m2 10/08/2024 8:29 AM ACCOUNTS CLERK [facility] Blood BLOOD SPECIMEN / Unknown Lab Venipuncture / Unknown 10/08/2024 7:07 AM ACCOUNTS CLERK 10/08/2024 7:58 AM ACCOUNTS CLERK Tessa Gonzáles PA-C LAB - CHEMISTRY YUAN JI [facility] [address] [place] [address], [facility] [phone] * XR Pelvis Judet Views (10/06/2024 9:26 PM ACCOUNTS CLERK) Anatomical Region Laterality Modality Pelvis Digital Radiogra phy 10/07/2024 2:29 PM ACCOUNTS CLERK Impressions 10/07/2024 3:32 PM ACCOUNTS CLERK IMPRESSION: Partially visualized multiple healing pelvic fractures as described above. > Dictated by Manjula Bruno MD, (residential director). I, Pratima Haynes MD have personally reviewed and interpreted this examination/study. > Interpreting Provider: Pratima Haynes MD on 10/07/2024 3:32 PM Narrative 10/07/2024 3:32 PM ACCOUNTS CLERK PROCEDURE: ??XR PELVIS AP W INLET OUTLET, XR PELVIS JUDET VIEWS DATE/TIME OF EXAM: ??10/06/2024 9:35 PM CLINICAL INFORMATION: None relevant/not provided if blank. Indication: S32.9XXA: Closed displaced fracture of pelvis, unspecified part of pelvis, initial encounter ([facility]) Additional History: ADDITIONAL CLINICAL INFORMATION: Ordering Provider Reason For Exam: ??fx COMPARISON: X-ray pelvis 09/29/2024. TECHNIQUE: AP and frog lateral views of the pelvis. FINDINGS: Judet Views: Partially visualized healing fractures involving the left superior and inferior pubic rami, right superior pubic ramus, right pubic body, and left sacral ala as described on CT done 09/14/2024. Inlet Outlet views: Partially visualized healing fractures as described above . The femoral heads are well-seated in their respective acetabulum. Joint spaces are preserved. Pubic symphysis is intact. The osseous architecture and density are normal. The SI joints are intact. Procedure Note Pratima Haynes MD - 10/07/2024 PROCEDURE: XR PELVIS AP W INLET OUTLET, XR PELVIS JUDET VIEWS DATE/TIME OF EXAM: 10/06/2024 9:35 PM CLINICAL INFORMATION: None relevant/not provided if blank. Indication: S32.9XXA: Closed displaced fracture of pelvis, unspecifiedpart of pelvis, initial encounter ([facility]) Additional History: ADDITIONAL CLINICAL INFORMATION: Ordering Provider Reason For Exam: fx COMPARISON: X-ray pelvis 09/29/2024. TECHNIQUE: AP and frog lateral views of the pelvis. FINDINGS: Judet Views: Partially visualized healing fractures involving the left superior and inferior pubic rami, right superior pubic ramus, right pubic body, andleft sacral ala as described on CT done 09/14/2024. Inlet Outlet views: Partially visualized healing fractures as described above . The femoral heads are well-seated in their respective acetabulum. Joint spaces are preserved. Pubic symphysis is intact. The osseous architecture anddensity are normal. The SI joints are intact. IMPRESSION: Partially visualized multiple healing pelvic fractures as describedabove. > Dictated by Manjula Bruno MD, (residential director). Pratima Casey MD have personally reviewed and interpreted this examination/study. > Interpreting Provider: Pratima Haynes MD on 10/07/2024 3:32 PM Felicia TREVINO-Michelle DIAGNOSTIC I MAGING ORDERABLES * XR Scapula Left (10/06/2024 9:25 PM ACCOUNTS CLERK) Anatomical Region Laterality Modality Upper Extremity Digital Radiogra phy 10/07/2024 11:1 1 AM ACCOUNTS CLERK Impressions 10/07/2024 11:38 AM ACCOUNTS CLERK IMPRESSION: Unchanged alignment of superior scapular fracture. > Dictated by Valerio Mckay DO, (residential director). Olivia Casey MD have personally reviewed and interpreted this examination/study. > Interpreting Provider: Olivia Polanco MD on 10/07/2024 11:38 AM Narrative 10/07/2024 11:38 AM ACCOUNTS CLERK PROCEDURE: ??XR SCAPULA LEFT DATE/TIME OF EXAM: ??10/06/2024 9:36 PM CLINICAL INFORMATION: None relevant/not provided if blank. Indication: S42.102A: Closed fracture of left scapula, unspecified part of scapula, initial encounter COMPARISON: X-ray scapula 09/29/2024. ? FINDINGS: Redemonstration of left-sided rib fixation plates. Relatively unchanged superior scapular fracture which extends into the acromion process. Procedure Note Olivia Polanco MD - 10/07/2024 PROCEDURE: XR SCAPULA LEFT DATE/TIME OF EXAM: 10/06/2024 9:36 PM CLINICAL INFORMATION: None relevant/not provided if blank. Indication: S42.102A: Closed fracture of left scapula, unspecified partof scapula, initial encounter COMPARISON: X-ray scapula 09/29/2024. FINDINGS: Redemonstration of left-sided rib fixation plates. Relatively unchanged superior scapular fracture which extends into the acromion process. IMPRESSION: Unchanged alignment of superior scapular fracture. > Dictated by Valerio Mckay DO, (residential director). Olivia Casey MD have personally reviewed and interpreted this examination/study. > Interpreting Provider: Olivia Polanco MD on 10/07/2024 11:38 AM Felicia Warren PA-C DIAGNOSTIC I MAGING ORDERABLES * XR Pelvis AP W Inlet Outlet (10/06/2024 9:25 PM ACCOUNTS CLERK) Anatomical Region Laterality Modality Pelvis Digital Radiogra phy 10/07/2024 2:29 PM ACCOUNTS CLERK Impressions 10/07/2024 3:32 PM ACCOUNTS CLERK IMPRESSION: Partially visualized multiple healing pelvic fractures as described above. > Dictated by Manjula Bruno MD, (residential director). Pratima Casey MD have personally reviewed and interpreted this examination/study. > Interpreting Provider: Pratima Haynes MD on 10/07/2024 3:32 PM Narrative 10/07/2024 3:32 PM ACCOUNTS CLERK PROCEDURE: ??XR PELVIS AP W INLET OUTLET, XR PELVIS JUDET VIEWS DATE/TIME OF EXAM: ??10/06/2024 9:35 PM CLINICAL INFORMATION: None relevant/not provided if blank. Indication: S32.9XXA: Closed displaced fracture of pelvis, unspecified part of pelvis, initial encounter ([facility]) Additional History: ADDITIONAL CLINICAL INFORMATION: Ordering Provider Reason For Exam: ??fx COMPARISON: X-ray pelvis 09/29/2024. TECHNIQUE: AP and frog lateral views of the pelvis. FINDINGS: Judet Views: Partially visualized healing fractures involving the left superior and inferior pubic rami, right superior pubic ramus, right pubic body, and left sacral ala as described on CT done 09/14/2024. Inlet Outlet views: Partially visualized healing fractures as described above . The femoral heads are well-seated in their respective acetabulum. Joint spaces are preserved. Pubic symphysis is intact. The osseous architecture and density are normal. The SI joints are intact. Procedure Note Pratima Haynes MD - 10/07/2024 PROCEDURE: XR PELVIS AP W INLET OUTLET, XR PELVIS JUDET VIEWS DATE/TIME OF EXAM: 10/06/2024 9:35 PM CLINICAL INFORMATION: None relevant/not provided if blank. Indication: S32.9XXA: Closed displaced fracture of pelvis, unspecifiedpart of pelvis, initial encounter ([facility]) Additional History: ADDITIONAL CLINICAL INFORMATION: Ordering Provider Reason For Exam: fx COMPARISON: X-ray pelvis 09/29/2024. TECHNIQUE: AP and frog lateral views of the pelvis. FINDINGS: Judet Views: Partially visualized healing fractures involving the left superior and inferior pubic rami, right superior pubic ramus, right pubic body, andleft sacral ala as described on CT done 09/14/2024. Inlet Outlet views: Partially visualized healing fractures as described above . The femoral heads are well-seated in their respective acetabulum. Joint spaces are preserved. Pubic symphysis is intact. The osseous architecture anddensity are normal. The SI joints are intact. IMPRESSION: Partially visualized multiple healing pelvic fractures as describedabove. > Dictated by Manjula Bruno MD, (residential director). I, Pratima Haynes MD have personally reviewed and interpreted this examination/study. > Interpreting Provider: Pratima Haynes MD on 10/07/2024 3:32 PM Felicia Warren PA-C DIAGNOSTIC I MAGING ORDERABLES * SARS-COV-2 (COVID-19) RAPID (10/06/2024 5:22 PM ACCOUNTS CLERK) COVID-19 PCR Not detected Not detected 10/06/20 6:21 PM ACCOUNTS CLERK [facility] Microbiology SPECIMEN FROM NASOPHARYNGEAL STRUCTURE / Unknown Collection / Unknown 10/06/2024 5:22 PM ACCOUNTS CLERK 10/06/2024 5:41 PM ACCOUNTS CLERK Narrative [facility] - 10/06/2024 6:21 PM ACCOUNTS CLERK The [employer] Xpert Xpress SARS-COV-2 has been authorized by [...] - MICROBIOLOGY O RDERABLES Performing Organization Address City/State/[facility] Co de Phone Number [address] [address], [facility] [phone] * SARS-COV-2 (COVID19) + RSV PCR RAPID (10/06/2024 3:08 PM ACCOUNTS CLERK) Pathologist [facility] [place] COVID-19 PCR Not detected Not detected 10/06/20 4:25 PM ACCOUNTS CLERK [facility] RSV PCR Not detected Not detected 10/06/2024 4:25 PM ACCOUNTS CLERK [facility] Microbiology SPECIMEN FROM NASOPHARYNGEAL STRUCTURE / Unknown Collection / Unknown 10/06/2024 3:08 PM ACCOUNTS CLERK 10/06/2024 3:44 PM ACCOUNTS CLERK [facility] - 10/06/2024 4:25 PM ACCOUNTS CLERK This nucleic acid amplification assay has been [...] Demarco MD LAB - MICROBIOLOGY O RDERABLES [facility] [address] [place] [address], [facility] [phone] * (ABNORMAL) CBC W/O DIFFERENTIAL (10/06/2024 6:12 AM ACCOUNTS CLERK) WBC 10.6 4.0 - 10.7 x10E9/L 10/06/2024 7:18 AM [facility] RBC Count 3.27(L) 4.30 - 5.80 x10E12/L 10/06/2024 7:18 AM [facility] Hemoglobin 9.7(L) 13.3 - 17.5 g/dL 10/06/2024 7:18 AM [facility] Hematocrit 31.9(L) 38.7 - 51.1 % 10/06/2024 7:18 AM [facility] MCV 97.6 80.0 - 98.0 fL 10/06/2024 7:18 AM [facility] MCH 29.7 26.7 - 33.6 pg 10/06/2024 7:18 AM [facility] MCHC 30.4(L) 31.7 - 36.3 g/dL 10/06/2024 7:18 AM [facility] RDW-CV 16.7(H) 11.3 - 14.8 % 10/06/2024 7:18 AM [facility] Platelet Count 1,065(HH) 150 - 420 x10E9/L 10/06/2024 7:18 AM [facility] MPV 10.4 7.8 - 11.4 fL 10/06/2024 7:18 AM [facility] NRBC 0.2(H) <=0.0 /100 WBC 10/06/2024 7:18 AM [facility] Blood BLOOD SPECIMEN / Unknown Lab Venipuncture / Unknown 10/06/2024 6:12 AM ACCOUNTS CLERK 10/06/2024 6:55 AM ACCOUNTS CLERK Tessa Gonzáles PA-C LAB - HEMATOLOGY ORD ERABLES [address] [address], [facility] [phone] * PHOSPHORUS BLOOD (10/06/2024 6:12 AM ACCOUNTS CLERK) Phosphorus 4.0 2.8 - 5.1 mg/dL 10/06/2024 7:47 AM ACCOUNTS CLERK [facility] Blood BLOOD SPECIMEN / Unknown Lab Venipuncture / Unknown 10/06/2024 6:12 AM ACCOUNTS CLERK 10/06/2024 7:20 AM ACCOUNTS CLERK Tessa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 ACCOUNTS CLERK Narrative 09/30/2024 11:26 AM ACCOUNTS CLERK PROCEDURE: ??XR PELVIS JUDET VIEWS, XR PELVIS AP W INLET OUTLET DATE/TIME OF EXAM: ??09/29/2024 5:45 PM CLINICAL INFORMATION: None relevant/not provided if blank. Indication: S32.9XXA: Closed displaced fracture of pelvis, unspecified part of pelvis, initial encounter ([facility]) Additional History: ADDITIONAL CLINICAL INFORMATION: Ordering Provider Reason For Exam: ??- B/L pubic root fx extending to anterior tab - L inferior pubic ramus - L Sacral ala fx (accession [id number]), - B/L pubic root fx extending to anterior tab (accession [id number]) COMPARISON: X-ray pelvis 09/21/2024. TECHNIQUE: AP and frog lateral views of the pelvis. FINDINGS/IMPRESSION: Judet views: There is partial visualization of the multiple pelvic fractures described on CT done 09/14/2024 (left superior and inferior pubic rami, right superior pubic ramus, right pubic body, left sacral ala). Inlet outlet views: There is partial visualization of the multiple pelvic fractures as described above. The femoral heads are well-seated in their respective acetabulum. Joint spaces are preserved. Pubic symphysis is intact. The osseous architecture and density are normal. The SI joints are intact. > Dictated by Manjula Bruno MD, (residential director). IPratima MD have personally reviewed and interpreted this examination/study. > Interpreting Provider: Pratima Haynes MD on 09/30/2024 11:26 AM Procedure Note Pratima Haynes MD - 09/30/2024 PROCEDURE: XR PELVIS JUDET VIEWS, XR PELVIS AP W INLET OUTLET DATE/TIME OF EXAM: 09/29/2024 5:45 PM CLINICAL INFORMATION: None relevant/not provided if blank. Indication: S32.9XXA: Closed displaced fracture of pelvis, unspecifiedpart of pelvis, initial encounter ([facility]) Additional History: ADDITIONAL CLINICAL INFORMATION: Ordering Provider Reason For Exam: - B/L pubic root fx extending to anterior tab - L inferior pubic ramus - L Sacral ala fx (accession [id number]), - B/L pubic root fx extending to anterior tab (accession [id number]) COMPARISON: X-ray pelvis 09/21/2024. TECHNIQUE: AP and frog lateral views of the pelvis. FINDINGS/IMPRESSION: Judet views: There is partial visualization of the multiple pelvic fracturesdescribed on CT done 09/14/2024 (left superior and inferior pubic rami, right superior pubic ramus, right pubic body, left sacral ala). Inlet outlet views: There is partial visualization of the multiple pelvic fractures as described above. The femoral heads are well-seated in their respective acetabulum. Joint spaces are preserved. Pubic symphysis is intact. The osseousarchitecture and density are normal. The SI joints are intact. > Dictated by Manjula Bruno MD, (residential director). I, Pratima Haynes MD have personally reviewed and interpreted this examination/study. > Interpreting Provider: Pratima Haynes MD on 09/30/2024 11:26 AM Gabriela Perales PA-C DIAGNOSTIC IMAGING ORDERABLES * XR Pelvis AP W Inlet Outlet (09/29/2024 5:00 PM ACCOUNTS CLERK) Anatomical Region Laterality Modality Pelvis Digital Radiogra phy 09/30/2024 9:51 AM ACCOUNTS CLERK Narrative 09/30/2024 11:26 AM ACCOUNTS CLERK PROCEDURE: ??XR PELVIS JUDET VIEWS, XR PELVIS AP W INLET OUTLET DATE/TIME OF EXAM: ??09/29/2024 5:45 PM CLINICAL INFORMATION: None relevant/not provided if blank. Indication: S32.9XXA: Closed displaced fracture of pelvis, unspecified part of pelvis, initial encounter ([facility]) Additional History: ADDITIONAL CLINICAL INFORMATION: Ordering Provider Reason For Exam: ??- B/L pubic root fx extending to anterior tab - L inferior pubic ramus - L Sacral ala fx (accession [id number]), - B/L pubic root fx extending to anterior tab (accession [id number]) COMPARISON: X-ray pelvis 09/21/2024. TECHNIQUE: AP and frog lateral views of the pelvis. FINDINGS/IMPRESSION: Judet views: There is partial visualization of the multiple pelvic fractures described on CT done 09/14/2024 (left superior and inferior pubic rami, right superior pubic ramus, right pubic body, left sacral ala). Inlet outlet views: There is partial visualization of the multiple pelvic fractures as described above. The femoral heads are well-seated in their respective acetabulum. Joint spaces are preserved. Pubic symphysis is intact. The osseous architecture and density are normal. The SI joints are intact. > Dictated by Manjula Bruno MD, (residential director). Pratima Casey MD have personally reviewed and interpreted this examination/study. > Interpreting Provider: Pratima Haynes MD on 09/30/2024 11:26 AM Procedure Note Pratima Haynes MD - 09/30/2024 PROCEDURE: XR PELVIS JUDET VIEWS, XR PELVIS AP W INLET OUTLET DATE/TIME OF EXAM: 09/29/2024 5:45 PM CLINICAL INFORMATION: None relevant/not provided if blank. Indication: S32.9XXA: Closed displaced fracture of pelvis, unspecifiedpart of pelvis, initial encounter ([facility]) Additional History: ADDITIONAL CLINICAL INFORMATION: Ordering Provider Reason For Exam: - B/L pubic root fx extending to anterior tab - L inferior pubic ramus - L Sacral ala fx (accession [id number]), - B/L pubic root fx extending to anterior tab (accession [id number]) COMPARISON: X-ray pelvis 09/21/2024. TECHNIQUE: AP and frog lateral views of the pelvis. FINDINGS/IMPRESSION: Judet views: There is partial visualization of the multiple pelvic fracturesdescribed on CT done 09/14/2024 (left superior and inferior pubic rami, right superior pubic ramus, right pubic body, left sacral ala). Inlet outlet views: There is partial visualization of the multiple pelvic fractures as described above. The femoral heads are well-seated in their respective acetabulum. Joint spaces are preserved. Pubic symphysis is intact. The osseousarchitecture and density are normal. The SI joints are intact. > Dictated by Manjula Bruno MD, (residential director). Pratima Casey MD have personally reviewed and interpreted this examination/study. > Interpreting Provider: Pratima Haynes MD on 09/30/2024 11:26 AM Gabriela Perales PA-C DIAGNOSTIC IMAGING ORDERABLES * XR Scapula Left (09/29/2024 5:00 PM ACCOUNTS CLERK) Anatomical Region Laterality Modality Upper Extremity Digital Radiogra phy 09/30/2024 10:0 4 AM ACCOUNTS CLERK Impressions 09/30/2024 11:47 AM ACCOUNTS CLERK IMPRESSION: Unchanged in alignment of superior scapular fracture. > Dictated by Manjula Bruno MD, (residential director). Pratima Caesy MD have personally reviewed and interpreted this examination/study. > Interpreting Provider: Pratima Haynes MD on 09/30/2024 11:47 AM Narrative 09/30/2024 11:47 AM ACCOUNTS CLERK PROCEDURE: ??XR SCAPULA LEFT DATE/TIME OF EXAM: ??09/29/2024 5:45 PM CLINICAL INFORMATION: None relevant/not provided if blank. Indication: S42.102A: Closed fracture of left scapula, unspecified part of scapula, initial encounter Additional History: COMPARISON: X-ray scapula 09/21/2024. ? FINDINGS: Redemonstration of left-sided rib fixation plates and skin avila. Redemonstration of moderately displaced superior scapular fracture, alignment similar to prior. Fracture extends into the acromion. Procedure Note Pratima Haynes MD - 09/30/2024 PROCEDURE: XR SCAPULA LEFT DATE/TIME OF EXAM: 09/29/2024 5:45 PM CLINICAL INFORMATION: None relevant/not provided if blank. Indication: S42.102A: Closed fracture of left scapula, unspecified partof scapula, initial encounter Additional History: COMPARISON: X-ray scapula 09/21/2024. FINDINGS: Redemonstration of left-sided rib fixation plates and skin avila. Redemonstration of moderately displaced superior scapular fracture, alignment similar to prior. Fracture extends into the acromion. IMPRESSION: Unchanged in alignment of superior scapular fracture. > Dictated by Manjula Bruno MD, (residential director). Pratima Casey MD have personally reviewed and interpreted this examination/study. > Interpreting Provider: Pratima Haynes MD on 09/30/2024 11:47 AM Gabriela Perales PA-C DIAGNOSTIC IMAGING ORDERABLES * XR Chest 1Vw Portable (09/29/2024 4:29 AM ACCOUNTS CLERK) Anatomical Region Laterality Modality Chest Digital Radiogra phy 09/29/2024 9:33 AM ACCOUNTS CLERK Narrative 09/29/2024 11:33 PM ACCOUNTS CLERK EXAMINATION: XR CHEST 1VW PORTABLE DATE/TIME OF EXAM: ??09/29/2024 4:29 AM, LOCATION ??[facility] HISTORY: S22.43XA: Multiple fractures of ribs, bilateral, initial encounter for closed fracture high oxygen requirement COMPARISON: Chest x-ray 09/28/2024 at 4:52 AM TECHNIQUE: Frontal radiograph of the chest. FINDINGS/IMPRESSION: *Unchanged enteric tube, left-sided surgical drain, left-sided rib fixation plates, skin avila Small to moderate left-sided pleural effusion with associated atelectasis. A component of superimposed infection cannot be excluded. Trace pleural effusion on the right with associated atelectasis. No pneumothorax is visible. The cardiomediastinal silhouette is partially obscured. Report dictated by Valerio Mckay DO (Copper Etcher). Layo Casey MD have personally reviewed and interpreted this examination/study. > Interpreting Provider: Layo Adhikari MD on 09/29/2024 11:33 PM Procedure Note Layo Adhikari MD - 09/29/2024 EXAMINATION: XR CHEST 1VW PORTABLE DATE/TIME OF EXAM: 09/29/2024 4:29 AM, LOCATION [facility] HISTORY: S22.43XA: Multiple fractures of ribs, bilateral, initialencounter for closed fracture high oxygen requirement COMPARISON: Chest x-ray 09/28/2024 at 4:52 AM TECHNIQUE: Frontal radiograph of the chest. FINDINGS/IMPRESSION: *Unchanged enteric tube, left-sided surgical drain, left-sided ribfixation plates, skin avila Small to moderate left-sided pleural effusion with associatedatelectasis. A component of superimposed infection cannot be excluded. Trace pleural effusion on the right with associated atelectasis. No pneumothorax is visible. The cardiomediastinal silhouette is partially obscured. Report dictated by Valerio Mckay DO (Copper Etcher). Layo Casey MD have personally reviewed and interpreted this examination/study. > Interpreting Provider: Layo Adhikari MD on 09/29/2024 11:33 PM Kendal Demarco MD DIAGNOSTIC IMAGING O RDERABLES * PHOSPHORUS BLOOD (09/29/2024 12:18 AM ACCOUNTS CLERK) Phosphorus 3.3 2.8 - 5.1 mg/dL 09/29/2024 1:00 AM [facility] Blood BLOOD SPECIMEN / Unknown Venipuncture / Unknown 09/29/2024 12:18 AM ACCOUNTS CLERK 09/29/2024 12:32 AM ACCOUNTS CLERK Gibran Grande PA-C LAB - CHEMISTRY O RDERABLES Performing Organization Address City/[facility]/ZIP Co de Phone Number [address] [address], [facility] [phone] * MAGNESIUM BLOOD (09/29/2024 12:18 AM ACCOUNTS CLERK) Pathologist [facility] [place] Magnesium 2.4 1.6 - 2.6 mg/dL 09/29/2024 1:00 AM [facility] Blood BLOOD SPECIMEN / Unknown Venipuncture / Unknown 09/29/2024 12:18 AM ACCOUNTS CLERK 09/29/2024 12:32 AM ACCOUNTS CLERK Gibran Grande PA-C LAB - CHEMISTRY O RDERABLES Performing Organization Address [facility] Co de Phone Number [address] [address], [facility] [phone] * (ABNORMAL) CBC W/O DIFFERENTIAL (09/29/2024 12:18 AM ACCOUNTS CLERK) Pathologist [facility] [place] WBC 21.0(H) 4.0 - 10.7 x10E9/L 09/29/2024 1:46 AM [facility] RBC Count 2.80(L) 4.30 - 5.80 x10E12/L 09/29/2024 1:46 AM [facility] Hemoglobin 8.5(L) 13.3 - 17.5 g/dL 09/29/2024 1:46 AM [facility] Hematocrit 27.3(L) 38.7 - 51.1 % 09/29/2024 1:46 AM [facility] MCV 97.5 80.0 - 98.0 fL 09/29/2024 1:46 AM [facility] MCH 30.4 26.7 - 33.6 pg 09/29/2024 1:46 AM [facility] MCHC 31.1(L) 31.7 - 36.3 g/dL 09/29/2024 1:46 AM [facility] RDW-CV 17.7(H) 11.3 - 14.8 % 09/29/2024 1:46 AM [facility] Platelet Count 1,318(HH) 150 - 420 x10E9/L 09/29/2024 1:46 AM [facility] MPV 10.0 7.8 - 11.4 fL 09/29/2024 1:46 AM [facility] NRBC 0.5(H) <=0.0 /100 WBC 09/29/2024 1:46 AM [facility] Blood BLOOD SPECIMEN / Unknown Venipuncture / Unknown 09/29/2024 12:18 AM ACCOUNTS CLERK 09/29/2024 12:32 AM ACCOUNTS CLERK Gibran Grande PA-C LAB - HEMATOLOGY ORDERABLES [place] [phone] [phone] * (ABNORMAL) CALCIUM IONIZED WHOLE BLOOD (09/29/2024 12:18 AM ACCOUNTS CLERK) Calcium Ionized 1.15 mmol/L 09/29/2024 12:47 AM [facility] pH 7.40 7.35 - 7.45 pH 09/29/2024 12:47 AM [facility] Ionized Calcium pH Adjusted 1.15(L) 1.19 - 1.34 mmol/L 09/29/2024 12:47 AM [facility] Blood BLOOD SPECIMEN / Unknown Venipuncture / Unknown 09/29/2024 12:18 AM ACCOUNTS CLERK 09/29/2024 12:28 AM ACCOUNTS CLERK Gibran Grande PA-C LAB - CHEMISTRY O RDERABLES [facility] [address] [place] [address], [facility] [phone] * (ABNORMAL) BASIC METABOLIC PANEL (CALCIUM TOTAL) (09/29/2024 12:18 AM [facility]) BUN 24 7 - 26 mg/dL 09/29/2024 1:00 AM [facility] Creatinine 0.56(L) 0.71 - 1.16 mg/dL 09/29/2024 1:00 AM [facility] Sodium 145 136 - 145 mmol/L 09/29/2024 1:00 AM [facility] Potassium 4.3 3.5 - 4.5 mmol/L 09/29/2024 1:00 AM [facility] Chloride 107 98 - 107 mmol/L 09/29/2024 1:00 AM [facility] CO2 29 22 - 29 mmol/L 09/29/2024 1:00 AM [facility] Glucose 151(H) 70 - 99 mg/dL 09/29/2024 1:00 AM [facility] Calcium 8.0(L) 8.4 - 10.2 mg/dL 09/29/2024 1:00 AM [facility] Anion Gap 9 6 - 16 09/29/2024 1:00 AM [facility] BUN/Creatinine Ratio 43(H) 7 - 23 09/29/2024 1:00 AM [facility] Osmolality Calculated 307(H) 275 - 295 mOsm/kg 09/29/2024 1:00 AM [facility] eGFR by CKD-EPI >90 >=90 mL/min/1.7 3 m2 09/29/2024 1:00 AM [facility] Blood BLOOD SPECIMEN / Unknown Venipuncture / Unknown 09/29/2024 12:18 AM ACCOUNTS CLERK 09/29/2024 12:32 AM [facility] Gibran Grande PA-C LAB - CHEMISTRY O RDERABLES [facility] [address] [place] [address], [facility] [phone] * XR Chest 1Vw Portable (09/28/2024 5:46 AM ACCOUNTS CLERK) Anatomical Region Laterality Modality Chest Digital Radiogra phy 09/28/2024 8:58 AM ACCOUNTS CLERK Narrative 09/28/2024 3:45 PM ACCOUNTS CLERK PROCEDURE: ??XR CHEST 1VW PORTABLE, DATE/TIME OF EXAM: ??09/28/2024 5:46 AM, LOCATION ??[facility] INDICATION: Z97.8: Endotracheal tube present ADDITIONAL CLINICAL INFORMATION: Ordering Provider Reason For Exam: Technologist Note: Additional: COMPARISON: Chest x-ray from 09/26/2024. TECHNIQUE: Frontal radiograph of the chest. FINDINGS/IMPRESSION: *Metallic densities in the oral cavity/upper neck *Unchanged cervical collar, enteric tube, left-sided surgical drain, left-sided rib fixation plates, skin avila Unchanged moderate to large left-sided pleural effusion with associated atelectasis. A component of superimposed infection cannot be excluded. Trace pleural effusion on the right. Otherwise, the right lung is clear. No pneumothorax is visible. The cardiomediastinal silhouette is obscured. Report dictated by Alex Huizar MD, (Copper Etcher). I, Maryanne Horner MD have personally reviewed and interpreted this examination/study. > Interpreting Provider: Maryanne Horner MD on 09/28/2024 3:45 PM Procedure Note Maryanne Horner MD - 09/28/2024 PROCEDURE: XR CHEST 1VW PORTABLE, DATE/TIME OF EXAM: 09/28/2024 5:46AM, LOCATION [facility] INDICATION: Z97.8: Endotracheal tube present ADDITIONAL CLINICAL INFORMATION: Ordering Provider Reason For Exam: Technologist Note: Additional: COMPARISON: Chest x-ray from 09/26/2024. TECHNIQUE: Frontal radiograph of the chest. FINDINGS/IMPRESSION: *Metallic densities in the oral cavity/upper neck *Unchanged cervical collar, enteric tube, left-sided surgical drain, left-sided rib fixation plates, skin avila Unchanged moderate to large left-sided pleural effusion with associated atelectasis. A component of superimposed infection cannot be excluded. Trace pleural effusion on the right. Otherwise, the right lung is clear.No pneumothorax is visible. The cardiomediastinal silhouette is obscured. Report dictated by Alex Huizar MD, (Copper Etcher). I, Maryanne Horner MD have personally reviewed and interpreted this examination/study. > Interpreting Provider: Maryanne Horner MD on 09/28/2024 3:45 PM Kendal Demarco MD DIAGNOSTIC IMAGING O RDERABLES * PHOSPHORUS BLOOD (09/27/2024 11:35 PM ACCOUNTS CLERK) Phosphorus 3.8 2.8 - 5.1 mg/dL 09/28/2024 12:13 AM ACCOUNTS CLERK [facility] Blood BLOOD SPECIMEN / Unknown Venipuncture / Unknown 09/27/2024 11:35 PM ACCOUNTS CLERK 09/27/2024 11:48 PM ACCOUNTS CLERK Gibran Grande PA-C LAB - CHEMISTRY O RDERABLES Performing Organization Address [facility]/ZIP Co de Phone Number [address] [phone], [facility] [phone] * MAGNESIUM BLOOD (09/27/2024 11:35 PM ACCOUNTS CLERK) Magnesium 2.2 1.6 - 2.6 mg/dL 09/28/2024 12:13 AM ACCOUNTS CLERK [facility] Blood BLOOD SPECIMEN / Unknown Venipuncture / Unknown 09/27/2024 11:35 PM ACCOUNTS CLERK 09/27/2024 11:48 PM ACCOUNTS CLERK Gibran Grande PA-C LAB - CHEMISTRY O RDERABLES [address] [address], [facility] [phone] * (ABNORMAL) CBC W/O DIFFERENTIAL (09/27/2024 11:35 PM ACCOUNTS CLERK) WBC 22.2(H) 4.0 - 10.7 x10E9/L 09/28/2024 12:05 AM ACCOUNTS CLERK [facility] RBC Count 2.85(L) 4.30 - 5.80 x10E12/L 09/28/2024 12:05 AM [facility] Hemoglobin 8.8(L) 13.3 - 17.5 g/dL 09/28/2024 12:05 AM [facility] Hematocrit 27.6(L) 38.7 - 51.1 % 09/28/2024 12:05 AM [facility] MCV 96.8 80.0 - 98.0 fL 09/28/2024 12:05 AM [facility] MCH 30.9 26.7 - 33.6 pg 09/28/2024 12:05 AM [facility] MCHC 31.9 31.7 - 36.3 g/dL 09/28/2024 12:05 AM [facility] RDW-CV 18.2(H) 11.3 - 14.8 % 09/28/2024 12:05 AM [facility] Platelet Count 1,328(HH) 150 - 420 x10E9/L 09/28/2024 12:05 AM [facility] MPV 9.9 7.8 - 11.4 fL 09/28/2024 12:05 AM [facility] NRBC 0.8(H) <=0.0 /100 WBC 09/28/2024 12:05 AM [facility] Blood BLOOD SPECIMEN / Unknown Venipuncture / Unknown 09/27/2024 11:35 PM ACCOUNTS CLERK 09/27/2024 11:48 PM ACCOUNTS CLERK Gibran Grande PA-C LAB - HEMATOLOGY ORDERABLES Performing Organization Address City/State/[facility] Co de Phone Number [facility] [address] [place] [phone] [phone] * (ABNORMAL) CALCIUM IONIZED WHOLE BLOOD (09/27/2024 11:35 PM ACCOUNTS CLERK) Calcium Ionized 1.17 mmol/L 09/27/2024 11:50 PM [facility] pH 7.42 7.35 - 7.45 pH 09/27/2024 11:50 PM [facility] Ionized Calcium pH Adjusted 1.18(L) 1.19 - 1.34 mmol/L 09/27/2024 11:50 PM [facility] Blood BLOOD SPECIMEN / Unknown Venipuncture / Unknown 09/27/2024 11:35 PM ACCOUNTS CLERK 09/27/2024 11:47 PM ACCOUNTS CLERK Gibran Murillo Harjinder KHAN LAB - CHEMISTRY O RDERABLES [facility] [address] [place] [address], [facility] [phone] * (ABNORMAL) BASIC METABOLIC PANEL (CALCIUM TOTAL) (09/27/2024 11:35 PM ACCOUNTS CLERK) BUN 22 7 - 26 mg/dL 09/28/2024 12:13 AM [facility] Creatinine 0.63(L) 0.71 - 1.16 mg/dL 09/28/2024 12:13 AM [facility] Sodium 143 136 - 145 mmol/L 09/28/2024 12:13 AM [facility] Potassium 4.5 3.5 - 4.5 mmol/L 09/28/2024 12:13 AM [facility] Chloride 110(H) 98 - 107 mmol/L 09/28/2024 12:13 AM [facility] CO2 27 22 - 29 mmol/L 09/28/2024 12:13 AM [facility] Glucose 95 70 - 99 mg/dL 09/28/2024 12:13 AM [facility] Calcium 8.4 8.4 - 10.2 mg/dL 09/28/2024 12:13 AM [facility] Anion Gap 6 6 - 16 09/28/2024 12:13 AM [facility] BUN/Creatinine Ratio 35(H) 7 - 23 09/28/2024 12:13 AM [facility] Osmolality Calculated 299(H) 275 - 295 mOsm/kg 09/28/2024 12:13 AM [facility] eGFR by CKD-EPI >90 >=90 mL/min/1.7 3 m2 09/28/2024 12:13 AM [facility] Blood BLOOD SPECIMEN / Unknown Venipuncture / Unknown 09/27/2024 11:35 PM ACCOUNTS CLERK 09/27/2024 11:48 PM ACCOUNTS CLERK Gibran Grande PA-C LAB - CHEMISTRY O RDERABLES Performing Organization Address City/[facility]/ZIP Co de Phone Number [facility] [address] [place] [address], [place] [phone] * EKG 12-LEAD (09/27/2024 8:49 AM ACCOUNTS CLERK) Ventricular Rate 148 BPM [facility] MUSE Atrial Rate 296 BPM [facility] MUSE QRS Duration ms 78 ms [facility] MUSE Q-T Interval ms 334 ms [facility] MUSE QTC Calculation (Bezet) 524 ms [facility] MUSE Calculated P [place] 103 degrees [facility] MUSE Calculated R [place] -33 degrees [facility] MUSE Calculated T [place] 118 degrees [facility] MUSE Interpretation EKG ATRIAL FLUTTER WITH 2:1 A-V CONDUCTION LEFT AXIS DEVIATION NONSPECIFIC ST AND T WAVE ABNORMALITY ABNORMAL ECG WHEN COMPARED WITH ECG OF 25-SEP-2024 16:26, atrial flutter has replaced sinus rhythm Confirmed by MAGALY CHE DO ([id number]) on 09/28/2024 3:21:12 PM [facility] MUSE 09/27/2024 8:49 AM ACCOUNTS CLERK 09/28/2024 3:21 PM ACCOUNTS CLERK Kendal Demarco MD ECG ORDERABLES Performing Organization Address [facility]/ZIP Co de Phone Number [facility] M[facility] * (ABNORMAL) BLOOD GASES ART + COOX PANEL (09/27/2024 6:21 AM ACCOUNTS CLERK) pH Arterial 7.45 7.35 - 7.45 pH 09/27/2024 6:31 AM [facility] pO2 Arterial 73(L) 80 - 100 mmHg 09/27/2024 6:31 AM [facility] pCO2 Arterial 39 35 - 45 mmHg 6:31 AM [facility] HCO3 Arterial 27.1 20.0 - 30.0 mmol/L 09/27/2024 6:31 AM [facility] BE Arterial 2.9(H) -2.0 - 2.0 mmol/L 09/27/2024 6:31 AM [facility] Oxyhemoglobin Arterial 94.1 % 09/27/2024 6:31 AM [facility] Dexoyhemoglobin (HHB) % 2.9 % 09/27/2024 6:31 AM [facility] Methemoglobin 1.4 0.0 - 2.0 % 09/27/2024 6:31 AM [facility] Carboxyhemoglobin 1.6 0.0 - 2.0 % 2023 6:31 AM [facility] O2 Content Arterial 12.3 Interpret within clinical context ml/dL 09/27/2024 6:31 AM [facility] Hemoglobin by COOX 9.2(L) 12.0 - 17.6 g/dL 09/27/2024 6:31 AM [facility] O2 Saturation Arterial 97 90 - 100 % 09/27/2024 6:31 AM [facility] FI O2 Arterial 90.0 % 09/27/2024 6:31 AM [facility] Blood, arterial ARTERIAL BLOOD SPECIMEN / Unknown Arterial Puncture / Unknown 09/27/2024 6:21 AM ACCOUNTS CLERK 09/27/2024 6:29 AM [facility] - 09/27/2024 6:31 AM [facility] Carboxyhemoglobin Normal Concentration: Non-smokers: 0-2%; Smokers: 0-9%; Toxic: >20% Kendal Demarco MD LAB - BLOOD GASES OR DERABLES Performing Organization Address City/State/[facility] Co de Phone Number [facility] [address] [place] [phone], [facility] [phone] * PHOSPHORUS BLOOD (09/27/2024 12:18 AM ACCOUNTS CLERK) Phosphorus 2.9 2.8 - 5.1 mg/dL 09/27/2024 12:56 AM [facility] Blood BLOOD SPECIMEN / Unknown Venipuncture / Unknown 09/27/2024 12:18 AM ACCOUNTS CLERK 09/27/2024 12:30 AM ACCOUNTS CLERK Gibran H McKenty PA-C LAB - CHEMISTRY O RDERABLES [facility] [address] [place] [address], [place] [phone] * MAGNESIUM BLOOD (09/27/2024 12:18 AM [facility]) Magnesium 2.3 1.6 - 2.6 mg/dL 09/27/2024 12:56 AM [facility] Blood BLOOD SPECIMEN / Unknown Venipuncture / Unknown 09/27/2024 12:18 AM ACCOUNTS CLERK 09/27/2024 12:30 AM ACCOUNTS CLERK Gibran Grande PA-C LAB - CHEMISTRY O RDERABLES [facility] [address] [place] [address], [place] [phone] * (ABNORMAL) CBC W/O DIFFERENTIAL (09/27/2024 12:18 AM ACCOUNTS CLERK) WBC 24.4(H) 4.0 - 10.7 x10E9/L 09/27/2024 12:55 AM [facility] RBC Count 2.83(L) 4.30 - 5.80 x10E12/L 09/27/2024 12:55 AM [facility] Hemoglobin 8.5(L) 13.3 - 17.5 g/dL 09/27/2024 12:55 AM [facility] Hematocrit 27.1(L) 38.7 - 51.1 % 09/27/2024 12:55 AM [facility] MCV 95.8 80.0 - 98.0 fL 09/27/2024 12:55 AM [facility] MCH 30.0 26.7 - 33.6 pg 09/27/2024 12:55 AM [facility] MCHC 31.4(L) 31.7 - 36.3 g/dL 09/27/2024 12:55 AM [facility] RDW-CV 17.7(H) 11.3 - 14.8 % 09/27/2024 12:55 AM [facility] Platelet Count 1,331(HH) 150 - 420 x10E9/L 09/27/2024 12:55 AM [facility] MPV 10.0 7.8 - 11.4 fL 09/27/2024 12:55 AM [facility] NRBC 1.1(H) <=0.0 /100 WBC 09/27/2024 12:55 AM [facility] Blood BLOOD SPECIMEN / Unknown Venipuncture / Unknown 09/27/2024 12:18 AM ACCOUNTS CLERK 09/27/2024 12:30 AM ACCOUNTS CLERK Gibran Grande PA-C LAB - HEMATOLOGY ORDERABLES Performing Organization Address [facility]/ZIP Co de Phone Number [address] [address], [facility] [phone] * (ABNORMAL) CALCIUM IONIZED WHOLE BLOOD (09/27/2024 12:18 AM ACCOUNTS CLERK) Calcium Ionized 1.15 mmol/L 09/27/2024 12:28 AM [facility] pH 7.44 7.35 - 7.45 pH 09/27/2024 12:28 AM [facility] Ionized Calcium pH Adjusted 1.17(L) 1.19 - 1.34 mmol/L 09/27/2024 12:28 AM [facility] Blood BLOOD SPECIMEN / Unknown Venipuncture / Unknown 09/27/2024 12:18 AM ACCOUNTS CLERK 09/27/2024 12:23 AM ACCOUNTS CLERK Gibran Grande PA-C LAB - CHEMISTRY O RDERABLES Performing Organization Address [facility]/ZIP Co de Phone Number [address] [address], [place] [phone] * (ABNORMAL) BASIC METABOLIC PANEL (CALCIUM TOTAL) (09/27/2024 12:18 AM 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 CLERK) BUN 24 7 - 26 mg/dL 09/27/2024 12:56 AM [facility] Creatinine 0.56(L) 0.71 - 1.16 mg/dL 09/27/2024 12:56 AM [facility] Sodium 145 136 - 145 mmol/L 09/27/2024 12:56 AM [facility] Potassium 4.7(H) 3.5 - 4.5 mmol/L 09/27/2024 12:56 AM [facility] Chloride 111(H) 98 - 107 mmol/L 09/27/2024 12:56 AM [facility] CO2 25 22 - 29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 Chloride 111(H) 98 - 107 mmol/L 09/17/2024 12:50 AM [facility] CO2 23 22 - 29 mmol/L 09/17/2024 12:50 AM [facility] Glucose 104(H) 70 - 99 mg/dL 09/17/2024 12:50 AM [facility] Calcium 7.8(L) 8.4 - 10.2 mg/dL 09/17/2024 12:50 AM [facility] Anion Gap 6 6 - 16 09/17/2024 12:50 AM [facility] BUN/Creatinine Ratio 19 7 - 23 09/17/2024 12:50 AM [facility] Osmolality Calculated 291 275 - 295 mOsm/kg 09/17/2024 12:50 AM [facility] eGFR by CKD-EPI >90 >=90 mL/min/1.7 3 m2 09/17/2024 12:50 AM [facility] Blood BLOOD SPECIMEN / Unknown Venipuncture / Unknown 09/17/2024 12:17 AM ACCOUNTS CLERK 09/17/2024 12:24 AM ACCOUNTS CLERK Gibran Grande PA-C LAB - CHEMISTRY O RDERABLES [facility] [address] [place] [address], [facility] [phone] * PREPARE (CROSSMATCH) RBC UNIT(S), 2 Units (09/16/2024 1:49 PM ACCOUNTS CLERK) Unit Description AS1 LR PRBC [facility]OD [facility] LAB Unit ABO A [facility] Unit Rh POS [facility] Product Number R02 [facility] B LOOD BANK LAB Unit Donor # [id number] [facility] Unit Status transfused [facility] BLO OD BANK LAB Product Code [id number] [facility] BLO OD [facility] Blood Type Barcode 6200 [facility] LAB Expiration Date [facility]LOOD [facility] Unit Description AS1 LR PRBC [facility] BLOOD [facility] LAB Unit ABO A [facility] BLOOD [facility] Unit Rh POS [facility] BLOOD [facility] Product Number R02 [facility] B LOOD BANK LAB Unit Donor # [id number] [facility] BLOOD [facility] LAB Unit Status released [facility] BLOO D BANK LAB Product Code [id number] [facility] BLO OD BANK LAB Blood Type Barcode 6200 [facility]LOOD [facility] LAB Expiration Date [facility] BLOOD [facility] LAB Blood Bank BLOOD SPECIMEN / Unknown 09/14/2024 12:27 AM ACCOUNTS CLERK Krzysztof Hunt DO LAB - BLOOD BANK O RDERABLES [facility] BLOOD [facility] LAB [address] [place] [address], [facility] [phone] * PREPARE (CROSSMATCH) RBC UNIT(S), 2 Units (09/16/2024 1:49 PM ACCOUNTS CLERK) Unit Description AS1 LR PRBC [facility] BLOOD [facility]ANK LAB Unit ABO A [facility] BLOOD [facility] LAB Unit POS [facility] BLOOD [facility] Product Number R02 [facility] B LOOD BANK LAB Unit Donor # [id number] [facility] BLOOD [facility] LAB Unit Status released [facility] BLOO D BANK LAB Product Code [id number] [facility] BLO OD BANK LAB Blood Type Barcode 6200 [facility] BLOOD [facility] LAB Expiration Date [facility] BLOOD [facility] Unit Description AS1 LR PRBC [facility] BLOOD B[facility] LAB Unit ABO A [facility] BLOOD [facility] LAB Unit POS [facility] BLOOD [facility] Product Number R02 [facility] B LOOD BANK LAB Unit Donor # [id number] [facility] BLOOD [facility] LAB Unit Status released [facility] BLOO D BANK LAB Product Code [id number] [facility] BLO OD BANK LAB Blood Type Barcode 6200 [facility] BLOOD [facility] LAB Expiration Date [facility] BLOOD BANK LAB Blood Bank BLOOD SPECIMEN / Unknown 09/14/2024 12:27 AM ACCOUNTS CLERK Triston Maldonado Asst LAB - BLOOD BANK ORDERABLES [facility] BLOOD [facility] LAB [address] [place] [address], [facility] [phone] * XR Chest 1Vw Portable (09/16/2024 1:47 PM ACCOUNTS CLERK) Anatomical Region Laterality Modality Chest Digital Radiogra phy 09/16/2024 2:59 PM ACCOUNTS CLERK Narrative 09/16/2024 6:26 PM ACCOUNTS CLERK PROCEDURE: ??XR CHEST 1VW PORTABLE DATE/TIME OF EXAM: ??09/16/2024 1:47 PM CLINICAL INFORMATION: None relevant/not provided if blank. Indication: S22.43XA: Multiple fractures of ribs, bilateral, initial encounter for closed fracture Additional History: ADDITIONAL CLINICAL INFORMATION: Ordering Provider Reason For Exam: ??post op COMPARISON: Chest x-ray 09/15/2024. TECHNIQUE: Frontal radiograph of the chest. FINDINGS/IMPRESSION: Lines and tubes: Interval placement of left lateral rib fixation plates. Endotracheal tube with tip terminating in the mid thoracic trachea. Enteric tube coursing below the left hemidiaphragm tip is not visualized. Stable appearance of left upper quadrant surgical drain. Left subclavian approach central venous catheter with tip terminating in the cavoatrial junction. Left chest tube overlying the left lung apex similar to prior. Interval placement of left chest tube overlying the left lower lung. 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 Interval improvement in aeration of left lung following chest tube placement with near resolution of left pleural effusion. Redemonstration of right pleural effusion with adjacent atelectasis. Scattered airspace and interstitial opacities bilaterally likely representing evolving contusions, edema/infectious process cannot be excluded. There is suggestion of trace pneumomediastinum near the left hilum. Left pneumothorax is no longer seen. Similar appearance of left chest wall subcutaneous emphysema. Report dictated by Manjula Bruno MD, (Copper Etcher). I, Olivia Polanco MD have personally reviewed and interpreted this examination/study. > Interpreting Provider: Olivia Polanco MD on 09/16/2024 6:26 PM Procedure Note Olivia Polanco MD - 09/16/2024 PROCEDURE: XR CHEST 1VW PORTABLE DATE/TIME OF EXAM: 09/16/2024 1:47 PM CLINICAL INFORMATION: None relevant/not provided if blank. Indication: S22.43XA: Multiple fractures of ribs, bilateral, initial encounter for closed fracture Additional History: ADDITIONAL CLINICAL INFORMATION: Ordering Provider Reason For Exam: post op COMPARISON: Chest x-ray 09/15/2024. TECHNIQUE: Frontal radiograph of the chest. FINDINGS/IMPRESSION: Lines and tubes: Interval placement of left lateral rib fixation plates. Endotracheal tube with tip terminating in the mid thoracic trachea. Enteric tube coursing below the left hemidiaphragm tip is notvisualized. Stable appearance of left upper quadrant surgical drain. Left subclavian approach central venous catheter with tip terminating in the cavoatrial junction. Left chest tube overlying the left lung apex similar to prior. Interval placement of left chest tube overlying the left lower lung. 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 Interval improvement in aeration of left lung following chest tube placement with nearresolution of left pleural effusion. Redemonstration of right pleural effusion with adjacent atelectasis. Scattered airspace and interstitial opacities bilaterally likely representing evolving contusions, edema/infectious process cannot be excluded. There is suggestion of tracepneumomediastinum near the left hilum. Left pneumothorax is no longer seen. Similar appearance of left chest wall subcutaneous emphysema. Report dictated by Manjula Bruno MD, (Copper Etcher). IOlivia MD have personally reviewed and interpreted this examination/study. > Interpreting Provider: Olivia Polanco MD on 09/16/2024 6:26 PM Kendal Demarco MD DIAGNOSTIC IMAGING O RDERABLES * LACTIC ACID BLOOD (09/16/2024 12:35 PM ACCOUNTS CLERK) Lactic Acid-Stat 0.9 <=2.0 mmol/L 09/16/2024 1:19 PM ACCOUNTS CLERK [facility] Blood BLOOD SPECIMEN / Unknown Venipuncture / Unknown 09/16/2024 12:35 PM ACCOUNTS CLERK 09/16/2024 12:48 PM ACCOUNTS CLERK Kendal Demarco MD LAB - CHEMISTRY YUAN JI [address] [address], [facility] [phone] * (ABNORMAL) CALCIUM IONIZED WHOLE BLOOD (09/16/2024 12:35 PM ACCOUNTS CLERK) Calcium Ionized 1.27 mmol/L 09/16/2024 12:43 PM ACCOUNTS CLERK [facility] pH 7.34(L) 7.35 - 7.45 pH 09/16/2024 12:43 PM ACCOUNTS CLERK [facility] Ionized Calcium pH Adjusted 1.24 1.19 - 1.34 mmol/L 09/16/2024 12:43 PM ACCOUNTS CLERK [facility] Blood BLOOD SPECIMEN / Unknown Venipuncture / Unknown 09/16/2024 12:35 PM ACCOUNTS CLERK 09/16/2024 12:40 PM ACCOUNTS CLERK Gibran Grande PA-C LAB - CHEMISTRY O RINA [address] [address], [facility] [phone] * PHOSPHORUS BLOOD (09/16/2024 12:35 PM ACCOUNTS CLERK) Phosphorus 4.0 2.8 - 5.1 mg/dL 09/16/2024 1:21 PM ACCOUNTS CLERK [facility] Blood BLOOD SPECIMEN / Unknown Venipuncture / Unknown 09/16/2024 12:35 PM ACCOUNTS CLERK 09/16/2024 12:48 PM ACCOUNTS CLERK Gibran Grande PA-C LAB - CHEMISTRY O RDERABLES [address] [address], [place] [phone] * MAGNESIUM BLOOD (09/16/2024 12:35 PM ACCOUNTS CLERK) Magnesium 1.9 1.6 - 2.6 mg/dL 09/16/2024 1:18 PM ACCOUNTS CLERK [facility] Blood BLOOD SPECIMEN / Unknown Venipuncture / Unknown 09/16/2024 12:35 PM ACCOUNTS CLERK 09/16/2024 12:48 PM ACCOUNTS CLERK Gibran Grande PA-C LAB - CHEMISTRY O RDERABLES [facility] [address] [place] [address], [facility] [phone] * (ABNORMAL) CBC W/O DIFFERENTIAL (09/16/2024 12:35 PM ACCOUNTS CLERK) [facility] WBC 10.7 4.0 - 10.7 x10E9/L 09/16/2024 12:58 PM [facility] RBC Count 2.84(L) 4.30 - 5.80 x10E12/L 09/16/2024 12:58 PM [facility] Hemoglobin 8.5(L) 13.3 - 17.5 g/dL 09/16/2024 12:58 PM [facility] Hematocrit 26.0(L) 38.7 - 51.1 % 09/16/2024 12:58 PM [facility] MCV 91.5 80.0 - 98.0 fL 09/16/2024 12:58 PM [facility] MCH 29.9 26.7 - 33.6 pg 09/16/2024 12:58 PM [facility] MCHC 32.7 31.7 - 36.3 g/dL 09/16/2024 12:58 PM [facility] RDW-CV 15.9(H) 11.3 - 14.8 % 09/16/2024 12:58 PM [facility] Platelet Count 117(L) 150 - 420 x10E9/L 09/16/2024 12:58 PM [facility] MPV 10.5 7.8 - 11.4 fL 09/16/2024 12:58 PM [facility] Blood BLOOD SPECIMEN / Unknown Venipuncture / Unknown 09/16/2024 12:35 PM ACCOUNTS CLERK 09/16/2024 12:48 PM ACCOUNTS CLERK Gibran Grande PA-C LAB - HEMATOLOGY ORDERABLES [facility] [address] [place] [address], [facility] [phone] * (ABNORMAL) BLOOD GASES ART + COOX PANEL (09/16/2024 12:35 PM ACCOUNTS CLERK) pH Arterial 7.34(L) 7.35 - 7.45 pH 09/16/2024 12:43 PM [facility] pO2 Arterial 92 80 - 100 mmHg 09/16/2024 12:43 PM [facility] pCO2 Arterial 44 35 - 45 mmHg 12:43 PM [facility] HCO3 Arterial 23.7 20.0 - 30.0 mmol/L 09/16/2024 12:43 PM [facility] BE Arterial -2.0 -2.0 - 2.0 mmol/L 09/16/2024 12:43 PM [facility] Oxyhemoglobin Arterial 95.7 % 09/16/2024 12:43 PM [facility] Dexoyhemoglobin (HHB) % 1.5 % 09/16/2024 12:43 PM [facility] Methemoglobin 0.9 0.0 - 2.0 % 09/16/2024 12:43 PM [facility] Carboxyhemoglobin 1.9 0.0 - 2.0 % 2023 12:43 PM [facility] O2 Content Arterial 12.3 Interpret within clinical context ml/dL 09/16/2024 12:43 PM [facility] Hemoglobin by COOX 9.0(L) 12.0 - 17.6 g/dL 09/16/2024 12:43 PM [facility] O2 Saturation Arterial 99 90 - 100 % 09/16/2024 12:43 PM [facility] FI O2 Arterial 50.0 % 09/16/2024 12:43 PM [facility] Blood, arterial ARTERIAL BLOOD SPECIMEN / Unknown Arterial Puncture / Unknown 09/16/2024 12:35 PM ACCOUNTS CLERK 09/16/2024 12:40 PM [facility] - 09/16/2024 12:43 PM ACCOUNTS CLERK Carboxyhemoglobin Normal Concentration: Non-smokers: 0-2%; Smokers: 0-9%; Toxic: >20% Gibran Grande PA-C LAB - BLOOD GASES ORDERABLES [facility] [address] [place] [address], [facility] [phone] * (ABNORMAL) BASIC METABOLIC PANEL (CALCIUM TOTAL) (09/16/2024 12:35 PM ACCOUNTS CLERK) BUN 14 7 - 26 mg/dL 09/16/2024 1:18 PM [facility] Creatinine 0.72 0.71 - 1.16 mg/dL 09/16/2024 1:18 PM [facility] Sodium 140 136 - 145 mmol/L 09/16/2024 1:18 PM [facility] Potassium 4.3 3.5 - 4.5 mmol/L 09/16/2024 1:18 PM [facility] Chloride 111(H) 98 - 107 mmol/L 09/16/2024 1:18 PM [facility] CO2 24 22 - 29 mmol/L 09/16/2024 1:18 PM [facility] Glucose 96 70 - 99 mg/dL 09/16/2024 1:18 PM [facility] Calcium 8.3(L) 8.4 - 10.2 mg/dL 09/16/2024 1:18 PM [facility] Anion Gap 5(L) 6 - 16 09/16/2024 1:18 PM [facility] BUN/Creatinine Ratio 19 7 - 23 09/16/2024 1:18 PM [facility] Osmolality Calculated 290 275 - 295 mOsm/kg 09/16/2024 1:18 PM [facility] eGFR by CKD-EPI >90 >=90 mL/min/1.7 3 m2 09/16/2024 1:18 PM [facility] Blood BLOOD SPECIMEN / Unknown Venipuncture / Unknown 09/16/2024 12:35 PM ACCOUNTS CLERK 09/16/2024 12:48 PM ACCOUNTS CLERK Gibran Grande PA-C LAB - CHEMISTRY O RDERABLES [facility] [address] [place] [address], [facility] [phone] * TRANSFUSE RED BLOOD CELL LEUKOREDUCED UNIT(S) (09/16/2024 11:39 AM [facility]) Triston Maldonado Asst NURSING - BLOOD PROD TRANSFUSION * (ABNORMAL) BLOOD GAS+COOX+LYTES+METAB ARTERIAL POCT (09/16/2024 11:02 AM [facility]) pH Arterial 7.38 7.35 - 7.45 pH 09/16/2024 11:02 AM [facility] pO2 Arterial 146(H) 80 - 100 mmHg 09/16/2024 11:02 AM [facility] pCO2 Arterial 43 35 - 45 mmHg 11:02 AM [facility] HCO3 Arterial 25.4 20.0 - 30.0 mmol/L 09/16/2024 11:02 AM [facility] BE Arterial 0.2 -2.0 - 2.0 mmol/L 09/16/2024 11:02 AM [facility] Oxyhemoglobin Arterial 97.7 % 09/16/2024 11:02 AM [facility] Dexoyhemoglobin (HHB) % <1.0 % 09/16/2024 11:02 AM [facility] Methemoglobin <0.8 0.0 - 2.0 % 09/16/2024 11:02 AM [facility] Carboxyhemoglobin 1.3 0.0 - 2.0 % 2023 11:02 AM [facility] Comment:Carboxyhemoglobin No rmal Concentration: Non-smokers: 0-2%; Smokers: 0- 9%; Toxic: >20% O2 Content Arterial 9.1 Interpret within clinical context ml/dL 09/16/2024 11:02 AM [facility] Hemoglobin by COOX 6.4(L) 12.0 - 17.6 g/dL 09/16/2024 11:02 AM [facility] O2 Saturation Arterial 99 90 - 100 % 09/16/2024 11:02 AM [facility] Sodium Whole Blood 136 135 - 145 mmol/L 09/16/2024 11:02 AM [facility] Potassium Whole Blood 4.1 3.5 - 5.5 mmol/L 09/16/2024 11:02 AM [facility] Chloride WB 110(H) 78 - 107 mmol/L 09/16/2024 11:02 AM [facility] Calcium Ionized 1.17 mmol/L 11:02 AM [facility] Ionized Calcium pH Adjusted 1.16(L) 1.19 - 1.34 mmol/L 09/16/2024 11:02 AM [facility] Anion Gap (AG) Arterial 5(L) 6 - 16 mmol/L 09/16/2024 11:02 AM [facility] Glucose WB 101(H) 70 - 99 mg/dL 09/16/2024 11:02 AM [facility] Lactic Acid Whole Blood 0.7 <=2.0 mmol/L 09/16/2024 11:02 AM [facility] Blood, arterial ARTERIAL BLOOD SPECIMEN / Unknown 09/16/2024 11:02 AM [facility] 09/16/2024 11:03 AM [facility] Kendal Demarco MD LAB - POINT OF CARE ORDERABLES [facility] [address] [place] [address], [facility] [phone] * (ABNORMAL) BLOOD GAS+COOX+LYTES+METAB ARTERIAL POCT (09/16/2024 9:29 AM [facility]) pH Arterial 7.33(L) 7.35 - 7.45 pH 09/16/2024 9:29 AM [facility] pO2 Arterial 136(H) 80 - 100 mmHg 09/16/2024 9:29 AM [facility] pCO2 Arterial 46(H) 35 - 45 mmHg 9:29 AM [facility] HCO3 Arterial 24.3 20.0 - 30.0 mmol/L 09/16/2024 9:29 AM [facility] BE Arterial -1.7 -2.0 - 2.0 mmol/L 09/16/2024 9:29 AM [facility] Oxyhemoglobin Arterial 96.9 % 09/16/2024 9:29 AM [facility] Dexoyhemoglobin (HHB) % <1.0 % 09/16/2024 9:29 AM [facility] Methemoglobin 1.2 0.0 - 2.0 % 09/16/2024 9:29 AM [facility] Carboxyhemoglobin 1.4 0.0 - 2.0 % 2023 9:29 AM [facility] Comment:Carboxyhemoglobin No rmal Concentration: Non-smokers: 0-2%; Smokers: 0- 9%; Toxic: >20% O2 Content Arterial 11.9 Interpret within clinical context ml/dL 09/16/2024 9:29 AM [facility] Hemoglobin by COOX 8.5(L) 12.0 - 17.6 g/dL 09/16/2024 9:29 AM [facility] O2 Saturation Arterial 100 90 - 100 % 09/16/2024 9:29 AM [facility] Sodium Whole Blood 136 135 - 145 mmol/L 09/16/2024 9:29 AM [facility] Potassium Whole Blood 3.9 3.5 - 5.5 mmol/L 09/16/2024 9:29 AM [facility] Chloride WB 110(H) 78 - 107 mmol/L 09/16/2024 9:29 AM [facility] Calcium Ionized 1.19 mmol/L 9:29 AM [facility] Ionized Calcium pH Adjusted 1.16(L) 1.19 - 1.34 mmol/L 09/16/2024 9:29 AM [facility] Anion Gap (AG) Arterial 2(L) 6 - 16 mmol/L 09/16/2024 9:29 AM [facility] Glucose WB 104(H) 70 - 99 mg/dL 09/16/2024 9:29 AM [facility] Lactic Acid Whole Blood 0.6 <=2.0 mmol/L 09/16/2024 9:29 AM [facility] Blood, arterial ARTERIAL BLOOD SPECIMEN / Unknown 09/16/2024 9:29 AM ACCOUNTS CLERK 09/16/2024 9:30 AM [facility] Kendal Demarco MD LAB - POINT OF CARE ORDERABLES [facility] [address] [place] [id number], [facility] [phone] * (ABNORMAL) BLOOD GAS+COOX+LYTES+METAB ARTERIAL POCT (09/16/2024 8:12 AM [facility]) pH Arterial 7.34(L) 7.35 - 7.45 pH 09/16/2024 8:12 AM [facility] pO2 Arterial 168(H) 80 - 100 mmHg 09/16/2024 8:12 AM [facility] pCO2 Arterial 46(H) 35 - 45 mmHg 8:12 AM [facility] HCO3 Arterial 24.8 20.0 - 30.0 mmol/L 09/16/2024 8:12 AM [facility] BE Arterial -1.0 -2.0 - 2.0 mmol/L 09/16/2024 8:12 AM [facility] Oxyhemoglobin Arterial 98.1 % 09/16/2024 8:12 AM [facility] Dexoyhemoglobin (HHB) % <1.0 % 09/16/2024 8:12 AM [facility] Methemoglobin <0.8 0.0 - 2.0 % 09/16/2024 8:12 AM [facility] Carboxyhemoglobin 1.2 0.0 - 2.0 % 2023 8:12 AM [facility] Comment:Carboxyhemoglobin No rmal Concentration: Non-smokers: 0-2%; Smokers: 0- 9%; Toxic: >20% O2 Content Arterial 12.1 Interpret within clinical context ml/dL 09/16/2024 8:12 AM [facility] Hemoglobin by COOX 8.5(L) 12.0 - 17.6 g/dL 09/16/2024 8:12 AM [facility] O2 Saturation Arterial 100 90 - 100 % 09/16/2024 8:12 AM [facility] Sodium Whole Blood 136 135 - 145 mmol/L 09/16/2024 8:12 AM [facility] Potassium Whole Blood 4.0 3.5 - 5.5 mmol/L 09/16/2024 8:12 AM [facility] Chloride WB 109(H) 78 - 107 mmol/L 09/16/2024 8:12 AM [facility] Calcium Ionized 1.18 mmol/L 8:12 AM [facility] Ionized Calcium pH Adjusted 1.15(L) 1.19 - 1.34 mmol/L 09/16/2024 8:12 AM [facility] Anion Gap (AG) Arterial 2(L) 6 - 16 mmol/L 09/16/2024 8:12 AM [facility] Glucose WB 102(H) 70 - 99 mg/dL 09/16/2024 8:12 AM [facility] Lactic Acid Whole Blood 0.8 <=2.0 mmol/L 09/16/2024 8:12 AM [facility] Blood, arterial ARTERIAL BLOOD SPECIMEN / Unknown 09/16/2024 8:12 AM ACCOUNTS CLERK 09/16/2024 8:13 AM ACCOUNTS CLERK Kendal Demarco MD LAB - POINT OF CARE ORDERABLES [address] [address], [facility] [phone] * BLOOD GAS ART+LYTES+METAB+COOX POC NOTIF (09/16/2024 8:10 AM ACCOUNTS CLERK) Comment Notification Label Only - See Separate Report 09/16/2024 9:30 AM [facility] Other MISCELLANEOUS SAMPLES / Unknown 09/16/2024 8:10 AM ACCOUNTS CLERK 09/16/2024 8:11 AM ACCOUNTS CLERK Kendal Demarco MD LAB - BLOOD GASES OR DERABLES [address] [address], [place] [phone] * LACTIC ACID BLOOD (09/16/2024 12:10 AM ACCOUNTS CLERK) Lactic Acid-Stat 0.9 <=2.0 mmol/L 09/16/2024 1:00 AM ACCOUNTS CLERK [facility] Blood BLOOD SPECIMEN / Unknown Venipuncture / Unknown 09/16/2024 12:10 AM ACCOUNTS CLERK 09/16/2024 12:29 AM ACCOUNTS CLERK Kendal Demarco MD LAB - CHEMISTRY YUAN JI [facility] [address] [place] [address], [facility] [phone] * (ABNORMAL) CALCIUM IONIZED WHOLE BLOOD (09/16/2024 12:10 AM ACCOUNTS CLERK) Calcium Ionized 1.16 mmol/L 09/16/2024 12:32 AM ACCOUNTS CLERK [facility] pH 7.43 7.35 - 7.45 pH 09/16/2024 12:32 AM [facility] Ionized Calcium pH Adjusted 1.17(L) 1.19 - 1.34 mmol/L 09/16/2024 12:32 AM ACCOUNTS CLERK [facility] Blood BLOOD SPECIMEN / Unknown Venipuncture / Unknown 09/16/2024 12:10 AM ACCOUNTS CLERK 09/16/2024 12:26 AM ACCOUNTS CLERK Gibran Grande PA-C LAB - CHEMISTRY Javy FLYNN [facility] [address] [place] [address], [facility] [phone] * (ABNORMAL) PHOSPHORUS BLOOD (09/16/2024 12:10 AM ACCOUNTS CLERK) Phosphorus 2.5(L) 2.8 - 5.1 mg/dL 09/16/2024 1:01 AM ACCOUNTS CLERK [facility] Blood BLOOD SPECIMEN / Unknown Venipuncture / Unknown 09/16/2024 12:10 AM ACCOUNTS CLERK 09/16/2024 12:31 AM ACCOUNTS CLERK Gibran Grande PA-C LAB - CHEMISTRY O RDERABLES [facility] [address] [place] [address], [place] [phone] * MAGNESIUM BLOOD (09/16/2024 12:10 AM ACCOUNTS CLERK) Pathologist [facility] Magnesium 2.0 1.6 - 2.6 mg/dL 09/16/2024 1:01 AM [facility] Blood BLOOD SPECIMEN / Unknown Venipuncture / Unknown 09/16/2024 12:10 AM ACCOUNTS CLERK 09/16/2024 12:31 AM ACCOUNTS CLERK Gibran Grande PA-C LAB - CHEMISTRY O RDERABLES [facility] [address] [place] [address], [place] [phone] * (ABNORMAL) CBC W/O DIFFERENTIAL (09/16/2024 12:10 AM ACCOUNTS CLERK) Pathologist [facility] WBC 12.1(H) 4.0 - 10.7 x10E9/L 09/16/2024 12:43 AM [facility] RBC Count 2.83(L) 4.30 - 5.80 x10E12/L 09/16/2024 12:43 AM [facility] Hemoglobin 8.5(L) 13.3 - 17.5 g/dL 09/16/2024 12:43 AM [facility] Hematocrit 25.5(L) 38.7 - 51.1 % 09/16/2024 12:43 AM [facility] MCV 90.1 80.0 - 98.0 fL 09/16/2024 12:43 AM [facility] MCH 30.0 26.7 - 33.6 pg 09/16/2024 12:43 AM [facility] MCHC 33.3 31.7 - 36.3 g/dL 09/16/2024 12:43 AM [facility] RDW-CV 16.6(H) 11.3 - 14.8 % 09/16/2024 12:43 AM [facility] Platelet Count 129(L) 150 - 420 x10E9/L 09/16/2024 12:43 AM [facility] MPV 10.4 7.8 - 11.4 fL 09/16/2024 12:43 AM [facility] Blood BLOOD SPECIMEN / Unknown Venipuncture / Unknown 09/16/2024 12:10 AM ACCOUNTS CLERK 09/16/2024 12:31 AM [facility] Gibran Grande PA-C LAB - HEMATOLOGY ORDERABLES [facility] [address] [place] [address], [facility] [phone] * (ABNORMAL) BLOOD GASES ART + COOX PANEL (09/16/2024 12:10 AM [facility]) pH Arterial 7.44 7.35 - 7.45 pH 09/16/2024 12:36 AM [facility] pO2 Arterial 115(H) 80 - 100 mmHg 09/16/2024 12:36 AM [facility] pCO2 Arterial 35 35 - 45 mmHg 12:36 AM [facility] HCO3 Arterial 23.8 20.0 - 30.0 mmol/L 09/16/2024 12:36 AM [facility] BE Arterial -0.1 -2.0 - 2.0 mmol/L 09/16/2024 12:36 AM [facility] Oxyhemoglobin Arterial 97.1 % 09/16/2024 12:36 AM [facility] Dexoyhemoglobin (HHB) % <1.0 % 09/16/2024 12:36 AM [facility] Methemoglobin 0.9 0.0 - 2.0 % 09/16/2024 12:36 AM [facility] Carboxyhemoglobin 1.2 0.0 - 2.0 % 2023 12:36 AM [facility] O2 Content Arterial 12.8 Interpret within clinical context ml/dL 09/16/2024 12:36 AM [facility] Hemoglobin by COOX 9.2(L) 12.0 - 17.6 g/dL 09/16/2024 12:36 AM [facility] O2 Saturation Arterial 99 90 - 100 % 09/16/2024 12:36 AM [facility] FI O2 Arterial 50.0 % 09/16/2024 12:36 AM [facility] Blood, arterial ARTERIAL BLOOD SPECIMEN / Unknown Arterial Puncture / Unknown 09/16/2024 12:10 AM [facility] 09/16/2024 12:26 AM [facility] - 09/16/2024 12:36 AM [facility] Carboxyhemoglobin Normal Concentration: Non-smokers: 0-2%; Smokers: 0-9%; Toxic: >20% Gibran Grande PA-C LAB - BLOOD GASES ORDERABLES [facility] [address] [place] [address], [facility] [phone] * (ABNORMAL) BASIC METABOLIC PANEL (CALCIUM TOTAL) (09/16/2024 12:10 AM [facility]) BUN 20 7 - 26 mg/dL 09/16/2024 1:01 AM [facility] Creatinine 0.85 0.71 - 1.16 mg/dL 09/16/2024 1:01 AM [facility] Sodium 141 136 - 145 mmol/L 09/16/2024 1:01 AM [facility] Potassium 4.2 3.5 - 4.5 mmol/L 09/16/2024 1:01 AM [facility] Chloride 111(H) 98 - 107 mmol/L 09/16/2024 1:01 AM [facility] CO2 23 22 - 29 mmol/L 09/16/2024 1:01 AM [facility] Glucose 99 70 - 99 mg/dL 09/16/2024 1:01 AM [facility] Calcium 7.7(L) 8.4 - 10.2 mg/dL 09/16/2024 1:01 AM [facility] Anion Gap 7 6 - 16 09/16/2024 1:01 AM [facility] BUN/Creatinine Ratio 24(H) 7 - 23 09/16/2024 1:01 AM [facility] Osmolality Calculated 295 275 - 295 mOsm/kg 09/16/2024 1:01 AM ACCOUNTS CLERK [facility] eGFR by CKD-EPI 87(L) >=90 mL/min/1.7 3 m2 09/16/2024 1:01 AM ACCOUNTS CLERK [facility] Blood BLOOD SPECIMEN / Unknown Venipuncture / Unknown 09/16/2024 12:10 AM ACCOUNTS CLERK 09/16/2024 12:31 AM ACCOUNTS CLERK Gibran Grande PA-C LAB - CHEMISTRY O RDERABLES [facility] [address] [place] [address], [facility] [phone] * CT 3D Recon W Independent Wksn (09/15/2024 7:05 PM ACCOUNTS CLERK) Anatomical Region Laterality Modality Computed Tomogra phy 09/15/2024 7:30 PM ACCOUNTS CLERK Impressions 09/16/2024 12:07 AM ACCOUNTS CLERK IMPRESSION: Three-dimensional rendering. Report dictated by Ovidio Myers MD I, Layo Adhikari MD have personally reviewed and interpreted this examination/study. > Interpreting Provider: Layo Adhikari MD on 09/16/2024 12:07 AM Narrative 09/16/2024 12:07 AM ACCOUNTS CLERK PROCEDURE: ??CT 3D RECON W INDEPENDENT WKSN, DATE/TIME OF EXAM: ??09/15/2024 7:05 PM, LOCATION ??[facility] INDICATION: S22.43XA: Multiple fractures of ribs, bilateral, [...] WKSN, DATE/TIME OF EXAM:09/15/2024 7:05 PM, LOCATION [facility] INDICATION: S22.43XA: Multiple fractures of ribs, bilateral, [...] AM Valerio Robert MD CT ORDERABLES * (ABNORMAL) BLOOD GASES ART + COOX PANEL (09/15/2024 1:55 PM ACCOUNTS CLERK) pH Arterial 7.36 7.35 - 7.45 pH 09/15/2024 2:15 PM [facility] pO2 Arterial 94 80 - 100 mmHg 09/15/2024 2:15 PM [facility] pCO2 Arterial 46(H) 35 - 45 mmHg 2:15 PM [facility] HCO3 Arterial 26.0 20.0 - 30.0 mmol/L 09/15/2024 2:15 PM [facility] BE Arterial 0.3 -2.0 - 2.0 mmol/L 09/15/2024 2:15 PM [facility] Oxyhemoglobin Arterial 97.6 % 09/15/2024 2:15 PM [facility] Dexoyhemoglobin (HHB) % <1.0 % 09/15/2024 2:15 PM [facility] Methemoglobin <0.8 0.0 - 2.0 % 09/15/2024 2:15 PM [facility] Carboxyhemoglobin 2.1(H) 0.0 - 2.0 % 2023 2:15 PM [facility] O2 Content Arterial 13.3 Interpret within clinical context ml/dL 09/15/2024 2:15 PM [facility] Hemoglobin by COOX 9.6(L) 12.0 - 17.6 g/dL 09/15/2024 2:15 PM ACCOUNTS CLERK [facility] O2 Saturation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 or a less intrusive route of administration when the lesser drug, dose and route have been ordered for the patient. This patient request must be documented in the MAR. If both oral and IV options are ordered for the same pain severity, give oral first unless patient cannot tolerate oral intake $ Given 10/01/2024 10:42 AM ACCOUNTS CLERK 1,000 mg NG Tube $ Given 10/01/2024 1:30 AM ACCOUNTS CLERK 1,000 mg NG Tube $ Given 09/30/2024 7:24 PM ACCOUNTS CLERK 1,000 mg NG Tube acetaminophen (Tylenol) tablet 1,000 mg 1,000 mg, Enteral Tube, EVERY 8 HOURS, First dose (after last modification) on Fri10/01/24 at 2200, Until Discontinued, Patient preference for lesser PRN pain meds may be honored when the patient requests a less strong medication, a lower dose, or a less intrusive route of administration when the lesser drug, dose and route have been ordered for the patient. This patient request must be documented in the MAR. If both oral and IV options are ordered for the same pain severity, give oral first unless patient cannot tolerate oral intake $ Given 10/20/2024 1:55 PM ACCOUNTS CLERK 1,000 mg G Tub e $ Given 10/19/2024 10:02 PM ACCOUNTS CLERK 1,000 mg G Tube $ Given 10/19/2024 1:06 PM ACCOUNTS CLERK 1,000 mg G Tube albuterol-ipratropium (Duo-Neb) 3 mL nebulizer solution ADS Med 1 dose, Starting on 09/25/24 at 2044, Until 09/25/24 at 2100, Created by cabinet override $ Given 09/25/2024 9:00 PM ACCOUNTS CLERK 3 mL albuterol-ipratropium (Duo-Neb) nebulizer solution 3 mL 3 mL, Inhalation, EVERY 4 HOURS PRN, Shortness of Breath, Wheezing, Starting on 09/25/24 at 2042, Until 09/27/24 at 0759 $ Given 09/26/2024 9:42 PM ACCOUNTS CLERK 3 mL $ Given 09/26/2024 10:23 AM ACCOUNTS CLERK 3 mL $ Given 09/26/2024 12:15 AM ACCOUNTS CLERK 3 mL albuterol-ipratropium (Duo-Neb) nebulizer solution 3 mL 3 mL, Inhalation, EVERY 4 HOURS, First dose (after last modification) on Fri09/27/24 at 1200, Until Discontinued $ Given 10/04/2024 8:39 AM ACCOUNTS CLERK 3 mL $ Given 10/04/2024 4:12 AM ACCOUNTS CLERK 3 mL $ Given 10/03/2024 11:46 PM ACCOUNTS CLERK 3 mL albuterol-ipratropium (Duo-Neb) nebulizer solution 3 mL 3 mL, Inhalation, EVERY 6 HOURS, First dose (after last modification) on Fri10/04/24 at 1200, Until Discontinued $ Given 10/05/2024 5:23 AM ACCOUNTS CLERK 3 mL $ Given 10/05/2024 12:43 AM ACCOUNTS CLERK 3 mL $ Given 10/04/2024 6:26 PM ACCOUNTS CLERK 3 mL albuterol-ipratropium (Duo-Neb) nebulizer solution 3 mL 3 mL, Inhalation, EVERY 6 HOURS, First dose (after last modification) on Fri10/05/24 at 1300, Until Discontinued $ Given 10/06/2024 11:37 AM ACCOUNTS CLERK 3 mL $ Given 10/06/2024 5:01 AM ACCOUNTS CLERK 3 mL $ Given 10/05/2024 8:47 PM ACCOUNTS CLERK 3 mL albuterol-ipratropium (Duo-Neb) nebulizer solution 3 mL 3 mL, Inhalation, EVERY 6 HOURS PRN, Shortness of Breath, Wheezing, Starting on Fri10/06/24 at 1400, Until Fri10/20/24 at 1716 amiodarone 150 mg in 100 mL bolus ADS Med 1 dose, Starting on Fri09/27/24 at 0915, Until Fri09/27/24 at 0928, Created by cabinet override Infuse through 0.22 micron filter amiodarone 150 mg in 100 mL bolus 150 mg, at 600 mL/hr, Intravenous, ONCE, 1 dose, On Fri09/27/24 at 0945, Infuse through 0.22 micron filter $ New Bag/Syringe 09/27/2024 9:18 AM ACCOUNTS CLERK 150 mg 600 mL/hr amiodarone 150 mg in 100 mL bolus 150 mg, at 600 mL/hr, Intravenous, ONCE, 1 dose, On Fri09/27/24 at 1030, Infuse through 0.22 micron filter $ New Bag/Syringe 09/27/2024 10:03 AM ACCOUNTS CLERK 150 mg 600 mL/hr artificial tears ophthalmic ointment Each Eye, EVERY 8 HOURS, First dose on Fri09/14/24 at 0115, Until Discontinued, Place a small strip of ointment into the eye. Wait at least 5 minutes before administering other ophthalmic medications. $ Given 09/23/2024 8:39 AM ACCOUNTS CLERK $ Given 09/23/2024 12:29 AM ACCOUNTS CLERK $ Given 09/22/2024 5:52 PM ACCOUNTS CLERK aspirin chew tablet 81 mg 81 mg, Enteral Tube, DAILY, First dose on Fri09/26/24 at 1530, Until Discontinued $ Given 10/11/2024 8:33 AM ACCOUNTS CLERK 81 mg G Tub e $ Given 10/10/2024 10:02 AM ACCOUNTS CLERK 81 mg G Tube $ Given 10/09/2024 9:28 AM ACCOUNTS CLERK 81 mg G Tube bisacodyl (Dulcolax) suppository 10 mg 10 mg, Rectal, DAILY, First dose on Fri09/21/24 at 1945, Until Discontinued, Hold if >2 stools in 24 hours $ Given 10/01/2024 10:40 AM ACCOUNTS CLERK 10 mg $ Given 09/30/2024 9:16 AM ACCOUNTS CLERK 10 mg $ Given 09/29/2024 8:00 AM ACCOUNTS CLERK 10 mg bisacodyl (Dulcolax) suppository 10 mg 10 mg, Rectal, ONCE, 1 dose, On Fri10/06/24 at 0900 $ Given 10/06/2024 10:26 AM ACCOUNTS CLERK 10 mg bisacodyl (Dulcolax) suppository 10 mg 10 mg, Rectal, DAILY PRN, Constipation, Starting on Noris 10/07/24 at 1234, Until Fri10/20/24 at 1716, Remove suppository from packaging and insert into rectum. Retain for 15 minutes or as long as tolerated. calcium gluconate 1 g in 50 mL NaCl 0.675% 1 g, at 100 mL/hr, Intravenous, ONCE, 1 dose, On Fri09/21/24 at 1300 $ New Bag/Syringe 09/21/2024 3:30 PM ACCOUNTS CLERK 1 g 100 mL/hr calcium gluconate 2 g in 100 mL NaCl 0.675% 2 g, at 100 mL/hr, Intravenous, ONCE, 1 dose, On Fri09/15/24 at 0100 Current Rate 09/15/2024 1:39 AM ACCOUNTS CLERK 100 mL/hr $ New Bag/Syringe 09/15/2024 1:08 AM ACCOUNTS CLERK 2 g 100 mL /hr calcium gluconate 2 g in 100 mL NaCl 0.675% 2 g, at 100 mL/hr, Intravenous, ONCE, 1 dose, On Fri09/16/24 at 0300 $ New Bag/Syringe 09/16/2024 2:48 AM ACCOUNTS CLERK 2 g 100 mL/hr calcium gluconate 2 g in 100 mL NaCl 0.675% 2 g, at 100 mL/hr, Intravenous, ONCE, 1 dose, On Fri09/17/24 at 0300 $ New Bag/Syringe 09/17/2024 3:37 AM ACCOUNTS CLERK 2 g 100 mL/hr calcium gluconate 2 g in 100 mL NaCl 0.675% 2 g, at 100 mL/hr, Intravenous, ONCE, 1 dose, On Fri09/18/24 at 0600 $ New Bag/Syringe 09/18/2024 8:31 AM ACCOUNTS CLERK 2 g 100 mL/hr calcium gluconate 2 g in 100 mL NaCl 0.675% 2 g, at 100 mL/hr, Intravenous, ONCE, 1 dose, On Fri09/19/24 at 0330 $ New Bag/Syringe 09/19/2024 3:18 AM ACCOUNTS CLERK 2 g 100 mL/hr calcium gluconate 2 g in 100 mL NaCl 0.675% 2 g, at 100 mL/hr, Intravenous, ONCE, 1 dose, On Fri09/24/24 at 0145 $ New Bag/Syringe 09/24/2024 1:58 AM ACCOUNTS CLERK 2 g 100 mL/hr calcium gluconate 2 g in 100 mL NaCl 0.675% 2 g, at 100 mL/hr, Intravenous, ONCE, 1 dose, On Fri09/25/24 at 0130 $ New Bag/Syringe 09/25/2024 2:19 AM ACCOUNTS CLERK 2 g 100 mL/hr calcium gluconate 2 g in 100 mL NaCl 0.675% 2 g, at 100 mL/hr, Intravenous, ONCE, 1 dose, On Fri09/27/24 at 0845 $ New Bag/Syringe 09/27/2024 9:28 AM ACCOUNTS CLERK 2 g 100 mL/hr calcium gluconate 2 g in 100 mL NaCl 0.675% 2 g, at 100 mL/hr, Intravenous, ONCE, 1 dose, On Fri09/28/24 at 0245 $ New Bag/Syringe 09/28/2024 2:46 AM ACCOUNTS CLERK 2 g 100 mL/hr ceFAZolin (Ancef) 2 g in sterile water (PF) 20 mL syringe 2 g, Intravenous, Once, 1 dose, On Fri09/14/24 at 0045, Infuse over 3-5 minutes. Dilute vial with 20 ml solution for a final concentration of 100 mg/ml., Indication for anti-infective therapy: Surgical prophylaxis $ Given 09/14/2024 1:20 AM ACCOUNTS CLERK 2 g cefepime (Maxipime) 2,000 mg in 0.9% NaCl IV 50 mL IVPB 2,000 mg (2 g), at 100 mL/hr, Intravenous, EVERY 8 HOURS, 21 doses, First dose on Fri09/20/24 at 1600, Last dose on Fri09/27/24 at 0800, Indication for anti-infective therapy: Documented infection, Site of anti-infective therapy: Lower Respiratory $ New Bag/Syringe 09/27/2024 10:33 AM ACCOUNTS CLERK 2,000 mg 100 mL/hr $ New Bag/Syringe 09/26/2024 11:04 PM ACCOUNTS CLERK 2,000 mg 100 m L/hr $ New Bag/Syringe 09/26/2024 3:29 PM ACCOUNTS CLERK 2,000 mg 100 mL /hr chlorhexidine (Peridex) 0.12 % oral solution 15 mL 15 mL, Mouth/Throat, 2 TIMES DAILY, First dose on Fri09/14/24 at 0115, Until Discontinued, Swab oral mucosa for 30 seconds. Do not brush teeth immediately after use. . WASTE DISPOSAL INSTRUCTIONS: Black Bin Disposal required. $ Given 09/23/2024 8:39 AM ACCOUNTS CLERK 15 mL $ Given 09/22/2024 9:00 PM ACCOUNTS CLERK 15 mL $ Given 09/22/2024 8:28 AM ACCOUNTS CLERK 15 mL cyclobenzaprine (Flexeril) tablet 10 mg 10 mg, Enteral Tube, 3 TIMES DAILY, First dose on Fri09/14/24 at 0900, Until Discontinued $ Given 09/22/2024 8:28 AM ACCOUNTS CLERK 10 mg OG Tube $ Given 09/21/2024 9:38 PM ACCOUNTS CLERK 10 mg OG Tube $ Given 09/21/2024 1:30 PM ACCOUNTS CLERK 10 mg OG Tube dexmedeTOMIDine (Precedex) 400 mcg in 100 mL NS infusion premix 0-1.5 mcg/kg/hr ? 82.6 kg (0-30.975 mL/hr, rounded to 0-30.98 mL/hr), Intravenous, CONTINUOUS, Starting on Fri09/17/24 at 1245, Until Fri09/26/24 at 1444, Above RASS goal: Assess and treat pain first if CPOT greater than 2. If agitation persists Increase rate per order. At RASS goal and no change in 4 hours: Decrease rate per order. Below RASS goal (unarousable): Hold infusion until at goal RASS then restart at 50% previous rate. If significant hemodynamic changes notify physician for instructions. Notify physician for inability to reach goals despite maximal dosage. Note: The CPOT goal should be achieved first with the use of the ordered analgesic medication prior to targeting RASS goal with the sedative. Hold medication and call physician if HR less than 40 bpm, Titration Parameters: Standard Parameters, Indication: Sedation, Initiate infusion at: 0.2 mcg/kg/hr, Titrate infusion by: 0.1 mcg/kg/hr, Titrate every: 30 minutes, Notify Physician: unable to maintain ordered clinical parameter despite max dose, Titration Priority: 1st, Restart Infusion: Medication may be restarted at last dose/rate administered before titrated to off. If infusion has been off for 4 or more hours, contact provider prior to restarting infusion. $ New Bag/Syringe 09/26/2024 12:40 AM ACCOUNTS CLERK 0.9 mcg/kg/hr 18.59 mL/hr Rate Change 09/26/2024 12:20 AM ACCOUNTS CLERK 0.9 mcg/kg/hr 18.59 mL /hr Rate Change 09/25/2024 8:57 PM ACCOUNTS CLERK 0.8 mcg/kg/hr 16.52 mL/ hr dextromethorphan-guaiFENesin ER 12hr (Mucinex DM) 30-600 MG tablet 1 tablet 1 tablet, Oral, 2 TIMES DAILY, First dose on Fri09/26/24 at 2100, Until Discontinued, Do not crush, chew, or cut in half. $ Given 09/28/2024 9:18 AM ACCOUNTS CLERK 1 tablet $ Given 09/27/2024 9:34 PM ACCOUNTS CLERK 1 tablet $ Given 09/27/2024 9:03 AM ACCOUNTS CLERK 1 tablet dextrose 5 % and 0.45% NaCl infusion at 75 mL/hr, Intravenous, CONTINUOUS, Starting on Fri10/05/24 at 1900, Until Fri10/06/24 at 0659 $ New Bag/Syringe 10/05/2024 11:13 PM ACCOUNTS CLERK 75 mL/hr dextrose IV 12.5 g 12.5 g (25 mL), Intravenous, ONCE, 1 dose, On Fri10/05/24 at 1630 $ Given 10/05/2024 4:15 PM ACCOUNTS CLERK 12.5 g enoxaparin (Lovenox) injection 30 mg 30 mg, Subcutaneous, EVERY 12 HOURS, First dose on Fri09/15/24 at 1415, Until Discontinued, (for prefilled syringes) do not expel air bubble from the syringe prior to the injection Remind Patient to not rub injection site. Could cause hematoma. $ Given 10/20/2024 8:54 AM ACCOUNTS CLERK 30 mg Abd Right Lower Quadrant $ Given 10/19/2024 10:05 PM ACCOUNTS CLERK 30 mg A bd Left Lower Quadrant $ Given 10/19/2024 8:30 AM ACCOUNTS CLERK 30 mg Le ft Arm etomidate (Amidate) injection 20 mg 20 mg, Intravenous, ONCE, 1 dose, On Fri09/19/24 at 1615 $ Given 09/19/2024 3:19 PM ACCOUNTS CLERK 20 mg famotidine (Pepcid) tablet 20 mg 20 mg, Enteral Tube, 2 TIMES DAILY, First dose on Fri09/14/24 at 0900, Until Discontinued $ Given 09/29/2024 8:00 AM ACCOUNTS CLERK 20 mg NG Tube $ Given 09/28/2024 9:37 PM ACCOUNTS CLERK 20 mg NG Tube $ Given 09/28/2024 9:20 AM ACCOUNTS CLERK 20 mg ND Tube fentaNYL (PF) (Sublimaze) injection 25 mcg 25 mcg, Intravenous, EVERY 30 MIN PRN, Moderate Pain, Starting on 09/19/24 at 1408, Until 09/19/24 at 1520, Patient preference for lesser PRN pain meds may be honored when the patient requests a less strong medication, a lower dose, or a less intrusive route of administration when the lesser drug, dose and route have been ordered for the patient. This patient request must be documented in the MAR. If both oral and IV options are ordered for the same pain severity, give oral first unless patient cannot tolerate oral intake $ Given 09/19/2024 2:37 PM ACCOUNTS CLERK 25 mcg fentaNYL (PF) (Sublimaze) injection 50 mcg 50 mcg, Intravenous, EVERY 30 MIN PRN, Moderate Pain, Starting on Fri09/19/24 at 1311, Until 09/19/24 at 1408, Patient preference for lesser PRN pain meds may be honored when the patient requests a less strong medication, a lower dose, or a less intrusive route of administration when the lesser drug, dose and route have been ordered for the patient. This patient request must be documented in the MAR. If both oral and IV options are ordered for the same pain severity, give oral first unless patient cannot tolerate oral intake $ Given 09/19/2024 1:32 PM ACCOUNTS CLERK 50 mcg fentaNYL (Sublimaze) bolus from bag 50 mcg 50 mcg, Intravenous, BOLUS FROM BAG PRN, CPOT goal, Starting on Fri09/14/24 at 0100, Until 09/19/24 at 1312, Bolus from bag every 5 minutes to reach CPOT goal. Can give bolus before anticipated painful stimuli. Contact physician if unable to achieve CPOT goal after administering 4 boluses. If a sedative is ordered, titrate/administer opioid first to achieve CPOT goal, followed by titration/administration of sedative to achieve RASS goal. Bolus From Bag 09/19/2024 12:05 PM ACCOUNTS CLERK 50 mcg Bolus From Bag 09/19/2024 10:23 AM ACCOUNTS CLERK 50 mcg Bolus From Bag 09/19/2024 10:05 AM ACCOUNTS CLERK 50 mcg fentaNYL (Sublimaze) bolus from bag 50 mcg 50 mcg, Intravenous, BOLUS FROM BAG PRN, CPOT goal, Starting on 09/19/24 at 1518, Until Fri09/24/24 at 1616, Bolus from bag every 5 minutes to reach CPOT goal. Can give bolus before anticipated painful stimuli. Contact physician if unable to achieve CPOT goal after administering 4 boluses. If a sedative is ordered, titrate/administer opioid first to achieve CPOT goal, followed by titration/administration of sedative to achieve RASS goal. Bolus From Bag 09/22/2024 8:39 PM ACCOUNTS CLERK 50 mcg Bolus From Bag 09/22/2024 5:12 AM ACCOUNTS CLERK 50 mcg Bolus From Bag 09/22/2024 3:05 AM ACCOUNTS CLERK 50 mcg fentaNYL 2500 mcg/50mL (Sublimaze) infusion 0-200 mcg/hr (0-4 mL/hr), Intravenous, CONTINUOUS, Starting on Fri09/14/24 at 0145, Until Fri09/19/24 at 1312, Above CPOT goal: bolus every 5 minutes until goal CPOT then increase rate per order. Can give bolus before anticipated painful stimuli. Contact physician if unable to achieve CPOT goal after administering 4 boluses. At CPOT goal and no change in 4 hours: Decrease rate per order If significant hemodynamic changes, notify physician for instructions. Notify physician for inability to reach goals despite maximal dosage. If a sedative is ordered, titrate/administer opioid first to achieve CPOT goal, followed by titration/administration of sedative to achieve RASS goal., Titration Parameters: Analgesia, Indication: Analgesia, Initiate infusion at: 25 mcg/hr, Titrate infusion by: 25 mcg/hr, Titrate every: 5 minutes, Notify physician if: Unachievable CPOT goal despite max dose Restarted 09/19/2024 1:03 PM ACCOUNTS CLERK 25 mcg/hr 0.5 mL/hr Current Rate 09/19/2024 12:53 PM ACCOUNTS CLERK 25 mcg/hr 0.5 mL/hr Current Rate 09/19/2024 12:52 PM ACCOUNTS CLERK 25 mcg/hr 0.5 mL/hr fentaNYL 2500 mcg/50mL infusion 0-200 mcg/hr (0-4 mL/hr), Intravenous, CONTINUOUS, Starting on Fri09/19/24 at 1600, Until Fri09/24/24 at 1616, Above CPOT goal: bolus every 5 minutes until goal CPOT then increase rate per order. Can give bolus before anticipated painful stimuli. Contact physician if unable to achieve CPOT goal after administering 4 boluses. At CPOT goal and no change in 4 hours: Decrease rate per order If significant hemodynamic changes, notify physician for instructions. Notify physician for inability to reach goals despite maximal dosage. If a sedative is ordered, titrate/administer opioid first to achieve CPOT goal, followed by titration/administration of sedative to achieve RASS goal., Titration Parameters: Analgesia, Indication: Analgesia, Initiate infusion at: 25 mcg/hr, Titrate infusion by: 25 mcg/hr, Titrate every: 5 minutes, Notify physician if: Unachievable CPOT goal despite max dose Current Rate 09/23/2024 3:00 AM ACCOUNTS CLERK 25 mcg/hr 0.5 mL/hr Current Rate 09/23/2024 2:00 AM ACCOUNTS CLERK 25 mcg/hr 0.5 mL/hr Current Rate 09/23/2024 1:00 AM ACCOUNTS CLERK 25 mcg/hr 0.5 mL/hr furosemide (Lasix) injection 40 mg 40 mg, Intravenous, ONCE, 1 dose, On Fri09/27/24 at 1015 $ Given 09/27/2024 9:53 AM ACCOUNTS CLERK 40 mg furosemide (Lasix) injection 40 mg 40 mg, Intravenous, ONCE, 1 dose, On Fri09/27/24 at 1630 $ Given 09/27/2024 4:47 PM ACCOUNTS CLERK 40 mg furosemide (Lasix) injection 40 mg 40 mg, Intravenous, ONCE, 1 dose, On Fri09/28/24 at 1300 $ Given 09/28/2024 12:53 PM ACCOUNTS CLERK 40 mg furosemide (Lasix) injection 40 mg 40 mg, Intravenous, ONCE, 1 dose, On Fri09/29/24 at 1000 $ Given 09/29/2024 9:58 AM ACCOUNTS CLERK 40 mg furosemide (Lasix) tablet 20 mg 20 mg, Oral, DAILY, First dose on Fri10/01/24 at 1430, Until Discontinued $ Given 10/11/2024 8:34 AM ACCOUNTS CLERK 20 mg $ Given 10/10/2024 10:02 AM ACCOUNTS CLERK 20 mg $ Given 10/09/2024 9:29 AM ACCOUNTS CLERK 20 mg gabapentin (Neurontin) capsule 100 mg 100 mg, Enteral Tube, 3 TIMES DAILY, First dose (after last modification) on Fri09/29/24 at 1400, Until Discontinued $ Given 10/01/2024 2:42 PM ACCOUNTS CLERK 100 mg NG Tu be $ Given 10/01/2024 10:40 AM ACCOUNTS CLERK 100 mg N G Tube $ Given 09/30/2024 8:27 PM ACCOUNTS CLERK 100 mg NG Tube gabapentin (Neurontin) capsule 300 mg 300 mg, Enteral Tube, 3 TIMES DAILY, First dose on Fri09/14/24 at 0900, Until Discontinued $ Given 09/29/2024 8:00 AM ACCOUNTS CLERK 300 mg NG Tube $ Given 09/28/2024 9:37 PM ACCOUNTS CLERK 300 mg NG Tube $ Given 09/28/2024 2:37 PM ACCOUNTS CLERK 300 mg ND Tube guaiFENesin (Robitussin) solution 10 mL 10 mL, Oral, EVERY 6 HOURS, First dose (after last modification) on Fri10/01/24 at 1415, Until Discontinued $ Given 10/06/2024 6:38 AM ACCOUNTS CLERK 10 mL $ Given 10/05/2024 11:14 PM ACCOUNTS CLERK 10 mL $ Given 10/04/2024 11:11 PM ACCOUNTS CLERK 10 mL N G Tube guaiFENesin-dextromethorphan (Robitussin DM) syrup 10 mL 10 mL, Enteral Tube, EVERY 6 HOURS, First dose on Fri09/28/24 at 2100, Until Discontinued $ Given 10/01/2024 10:40 AM ACCOUNTS CLERK 10 mL NG Tube $ Given 10/01/2024 2:00 AM ACCOUNTS CLERK 10 mL NG Tube $ Given 09/30/2024 8:27 PM ACCOUNTS CLERK 10 mL NG Tube heparinized saline 2 units/mL infusion Other, CONTINUOUS PRN, Starting on Fri09/14/24 at 0458, Until Fri09/14/24 at 0458, Intra-op $ New Bag/Syringe 09/14/2024 4:58 AM ACCOUNTS CLERK 500 mL iopamidol (Isovue 300) 61 % contrast ONCE PRN, Starting on Fri09/14/24 at 0621, Until Fri09/14/24 at 0621, Intra-op $ Given 09/14/2024 6:21 AM ACCOUNTS CLERK 85 mL iopamidol (Isovue 370) 76 % contrast Intravenous, CONTRAST ONCE, Starting on Fri09/14/24 at 0002, Until Fri09/16/24 at 0001 $ Given - Contrast 09/14/2024 12:20 AM ACCOUNTS CLERK 100 mL iopamidol (Isovue 370) 76 % contrast Intravenous, CONTRAST ONCE, Starting on Fri09/14/24 at 0814, Until Fri09/16/24 at 0813 $ Given - Contrast 09/14/2024 8:36 AM ACCOUNTS CLERK 75 mL lactated ringers infusion at 125 mL/hr, Intravenous, CONTINUOUS, Starting on Fri09/15/24 at 0200, Until Fri09/15/24 at 1332 Restarted 09/15/2024 12:14 PM ACCOUNTS CLERK 125 mL/hr Restarted 09/15/2024 9:40 AM ACCOUNTS CLERK Current Rate 09/15/2024 7:00 AM ACCOUNTS CLERK 125 mL/hr lactated ringers IV bolus 1,000 mL, at 983.61 mL/hr, Administer over 61 Minutes, ONCE, 1 dose, On Fri09/14/24 at 1500 $ New Bag/Syringe 09/14/2024 2:42 PM ACCOUNTS CLERK 1,000 mL 983.61 mL/hr lactated ringers IV bolus 1,000 mL, at 983.61 mL/hr, Administer over 61 Minutes, ONCE, 1 dose, On Fri09/15/24 at 0000 Rate Change 09/15/2024 12:45 AM ACCOUNTS CLERK 5 mL/hr Rate Change 09/14/2024 11:45 PM ACCOUNTS CLERK 999 mL/hr $ New Bag/Syringe 09/14/2024 11:45 PM ACCOUNTS CLERK 1,000 mL 983.6 1 mL/hr lactated ringers IV bolus 500 mL, at 491.8 mL/hr, Administer over 61 Minutes, ONCE, 1 dose, On Fri09/15/24 at 0215 Current Rate 09/15/2024 3:02 AM ACCOUNTS CLERK 491.8 mL/hr $ New Bag/Syringe 09/15/2024 2:51 AM ACCOUNTS CLERK 500 mL 491.8 mL/hr lactated ringers IV bolus 500 mL, at 491.8 mL/hr, Administer over 61 Minutes, ONCE, 1 dose, On Fri09/15/24 at 0400 $ New Bag/Syringe 09/15/2024 4:23 AM ACCOUNTS CLERK 500 mL 491.8 mL/hr lidocaine (Lidoderm) 5 % patch 2 patch 2 patch, Administer over 12 Hours, EVERY 24 HOURS, First dose on Fri10/04/24 at 0915, Until Discontinued, Apply to back, left ribs and remove patch after a max of 12 hours of application within a 24 hour period. $ Applied 10/20/2024 8:53 AM ACCOUNTS CLERK 2 patches Back $ Applied 10/19/2024 8:36 AM ACCOUNTS CLERK 2 patches Ba ck $ Applied 10/18/2024 10:09 AM ACCOUNTS CLERK 2 patches B ack lidocaine (Xylocaine) 1 % injection Subcutaneous, ONCE PRN, Starting on Fri09/14/24 at 0455, Until Fri09/14/24 at 0455, Intra-op $ Given 09/14/2024 4:55 AM ACCOUNTS CLERK 10 mL Right Groin lidocaine (Xylocaine) 1 % injection Subcutaneous, ONCE PRN, Starting on Fri09/14/24 at 0550, Until Fri09/14/24 at 0550, Intra-op $ Given 09/14/2024 5:50 AM ACCOUNTS CLERK 10 mL Left Groin magnesium sulfate 2 g in 50 mL bolus 2 g, at 25 mL/hr, Administer over 120 Minutes, Intravenous, ONCE, 1 dose, On Fri09/15/24 at 0115, Infuse at 1 gm/hr Current Rate 09/15/2024 3:02 AM ACCOUNTS CLERK 25 mL/hr $ New Bag/Syringe 09/15/2024 2:13 AM ACCOUNTS CLERK 2 g 25 mL/ hr magnesium sulfate 2 g in 50 mL bolus 2 g, at 25 mL/hr, Administer over 120 Minutes, Intravenous, ONCE, 1 dose, On Fri09/17/24 at 0300, Infuse at 1 gm/hr $ New Bag/Syringe 09/17/2024 4:12 AM ACCOUNTS CLERK 2 g 25 mL/hr melatonin tablet 5 mg 5 mg, Enteral Tube, AT BEDTIME, First dose on Fri10/05/24 at 2100, Until Discontinued $ Given 10/19/2024 10:02 PM ACCOUNTS CLERK 5 mg G Tube $ Given 10/18/2024 8:54 PM ACCOUNTS CLERK 5 mg G Tube $ Given 10/17/2024 9:25 PM ACCOUNTS CLERK 5 mg G Tube methocarbamol (Robaxin) tablet 500 mg 500 mg, Enteral Tube, EVERY 8 HOURS, First dose on Fri09/22/24 at 1415, Until Discontinued $ Given 09/29/2024 6:19 AM ACCOUNTS CLERK 500 mg NG Tube $ Given 09/28/2024 9:37 PM ACCOUNTS CLERK 500 mg NG Tube $ Given 09/28/2024 2:37 PM ACCOUNTS CLERK 500 mg ND Tube methocarbamol (Robaxin) tablet 500 mg 500 mg, Enteral Tube, EVERY 8 HOURS PRN, Muscle Spasms, Starting on Fri09/29/24 at 1100, Until Fri10/01/24 at 1237 $ Given 10/01/2024 10:43 AM ACCOUNTS CLERK 500 mg NG T ube $ Given 10/01/2024 12:01 AM ACCOUNTS CLERK 500 mg N G Tube norepinephrine (Levophed) 8 mg/250 ml D5 infusion premix ADS Med 1 dose, Starting on Fri09/14/24 at 0007, Until Fri09/15/24 at 1129, Created by cabinet override Central line required if infused longer than 48 hours or infusing multiple vasopressors norepinephrine (Levophed) 8 mg/250 ml D5 infusion premix 0-0.4 mcg/kg/min ? 72.6 kg (0-54.45 mL/hr), Intravenous, CONTINUOUS, Starting on Fri09/14/24 at 1030, Until Fri09/17/24 at 1447, Central line required if infused longer than 48 hours or infusing multiple vasopressors, Titration Parameters: Standard Parameters, Indication: Hypotension, Initiate infusion at: 0.05 mcg/kg/min, Titrate infusion by: 0.01-0.05 mcg/kg/min, Titrate every: 1 minute, To maintain a: MAP greater than or equal to 65 mmHg, Notify Physician: unable to maintain ordered clinical parameter despite max dose, Restart Infusion: Medication may be restarted at last dose/rate administered before titrated to off. If infusion has been off for 4 or more hours, contact provider prior to restarting infusion. Rate Change 09/17/2024 3:38 PM ACCOUNTS CLERK 0.06 mcg/kg/min 8.17 mL/hr Rate Change 09/17/2024 3:23 PM ACCOUNTS CLERK 0.08 mcg/kg/min 10.89 m L/hr Rate Change 09/17/2024 12:46 PM ACCOUNTS CLERK 0.1 mcg/kg/min 13.61 m L/hr norepinephrine (Levophed) 8 mg/250 ml D5 infusion premix 0-0.4 mcg/kg/min ? 82.6 kg (0-61.95 mL/hr), Intravenous, CONTINUOUS, Starting on Fri09/17/24 at 1500, Until Fri09/24/24 at 1616, Central line required if infused longer than 48 hours or infusing multiple vasopressors, Titration Parameters: Standard Parameters, Indication: Hypotension, Initiate infusion at: 0.05 mcg/kg/min, Titrate infusion by: 0.01-0.05 mcg/kg/min, Titrate every: 1 minute, To maintain a: Other - see comments, Notify Physician: unable to maintain ordered clinical parameter despite max dose, Restart Infusion: Medication may be restarted at last dose/rate administered before titrated to off. If infusion has been off for 4 or more hours, contact provider prior to restarting infusion. Rate Change 09/21/2024 11:52 AM ACCOUNTS CLERK 0.01 mcg/kg/min 1.55 mL/hr Rate Change 09/21/2024 11:38 AM ACCOUNTS CLERK 0.02 mcg/kg/min 3.1 mL /hr Rate Change 09/21/2024 10:26 AM ACCOUNTS CLERK 0.03 mcg/kg/min 4.65 m L/hr OLANZapine (ZyPREXA) tablet 5 mg 5 mg, Enteral Tube, 2 TIMES DAILY PRN, agitation, Starting on Fri09/20/24 at 0942, Until Fri09/20/24 at 1530 $ Given 09/20/2024 9:54 AM ACCOUNTS CLERK 5 mg OG Tube oxyCODONE (immediate release) (Roxicodone) tablet 2.5 mg 2.5 mg, Enteral Tube, EVERY 6 HOURS PRN, Moderate Pain, Mild Pain, Starting on Fri10/01/24 at 1335, Until Fri10/20/24 at 1716, Patient preference for lesser PRN pain meds may be honored when the patient requests a less strong medication, a lower dose, or a less intrusive route of administration when the lesser drug, dose and route have been ordered for the patient. This patient request must be documented in the MAR. If both oral and IV options are ordered for the same pain severity, give oral first unless patient cannot tolerate oral intake oxyCODONE (immediate release) (Roxicodone) tablet 5 mg 5 mg, Enteral Tube, EVERY 6 HOURS, First dose (after last modification) on Fri09/21/24 at 1315, Until Discontinued, Patient preference for lesser PRN pain meds may be honored when the patient requests a less strong medication, a lower dose, or a less intrusive route of administration when the lesser drug, dose and route have been ordered for the patient. This patient request must be documented in the MAR. If both oral and IV options are ordered for the same pain severity, give oral first unless patient cannot tolerate oral intake $ Given 09/28/2024 12:26 PM ACCOUNTS CLERK 5 mg ND T ube $ Given 09/28/2024 5:54 AM ACCOUNTS CLERK 5 mg NG Tube $ Given 09/27/2024 11:55 PM ACCOUNTS CLERK 5 mg N G Tube oxyCODONE (immediate release) (Roxicodone) tablet 5 mg 5 mg, Enteral Tube, EVERY 4 HOURS PRN, Moderate Pain, Starting on Fri09/21/24 at 1240, Until Fri10/01/24 at 0903, Patient preference for lesser PRN pain meds may be honored when the patient requests a less strong medication, a lower dose, or a less intrusive route of administration when the lesser drug, dose and route have been ordered for the patient. This patient request must be documented in the MAR. If both oral and IV options are ordered for the same pain severity, give oral first unless patient cannot tolerate oral intake $ Given 10/01/2024 5:02 AM ACCOUNTS CLERK 5 mg NG Tube $ Given 10/01/2024 12:01 AM ACCOUNTS CLERK 5 mg N G Tube $ Given 09/30/2024 6:30 AM ACCOUNTS CLERK 5 mg OG Tube oxyCODONE (immediate release) (Roxicodone) tablet 5 mg 5 mg, Enteral Tube, EVERY 6 HOURS PRN, Severe Pain, Starting on Fri09/28/24 at 1245, Until Fri10/01/24 at 1336, Patient preference for lesser PRN pain meds may be honored when the patient requests a less strong medication, a lower dose, or a less intrusive route of administration when the lesser drug, dose and route have been ordered for the patient. This patient request must be documented in the MAR. If both oral and IV options are ordered for the same pain severity, give oral first unless patient cannot tolerate oral intake $ Given 10/01/2024 10:43 AM ACCOUNTS CLERK 5 mg NG T ube oxyCODONE (immediate release) (Roxicodone) tablet 5 mg 5 mg, Enteral Tube, EVERY 6 HOURS PRN, Severe Pain, Starting on Fri10/01/24 at 1335, Until Fri10/20/24 at 1716, Patient preference for lesser PRN pain meds may be honored when the patient requests a less strong medication, a lower dose, or a less intrusive route of administration when the lesser drug, dose and route have been ordered for the patient. This patient request must be documented in the MAR. If both oral and IV options are ordered for the same pain severity, give oral first unless patient cannot tolerate oral intake $ Given 10/19/2024 10:03 PM ACCOUNTS CLERK 5 mg G Tu be $ Given 10/12/2024 5:32 AM ACCOUNTS CLERK 5 mg G Tube $ Given 10/12/2024 2:00 AM ACCOUNTS CLERK 5 mg G Tube oxyCODONE (immediate release) (Roxicodone) tablet 5 mg 5 mg, Enteral Tube, EVERY 6 HOURS, First dose on Fri10/05/24 at 1915, Until Discontinued, May hold dose if pt asleep Patient preference for lesser PRN pain meds may be honored when the patient requests a less strong medication, a lower dose, or a less intrusive route of administration when the lesser drug, dose and route have been ordered for the patient. This patient request must be documented in the MAR. If both oral and IV options are ordered for the same pain severity, give oral first unless patient cannot tolerate oral intake $ Given 10/06/2024 6:38 AM ACCOUNTS CLERK 5 mg G Tube $ Given 10/05/2024 11:12 PM ACCOUNTS CLERK 5 mg G Tube $ Given 10/05/2024 9:11 PM ACCOUNTS CLERK 5 mg G Tube polyethylene glycol 3350 (Miralax) packet 17 g 17 g, Enteral Tube, DAILY, First dose on Fri09/14/24 at 0900, Until Discontinued, Mix in 8 ounces of water, juice, soda, coffee or tea prior to administration $ Given 10/06/2024 10:26 AM ACCOUNTS CLERK 17 g G Tube $ Given 10/05/2024 9:53 AM ACCOUNTS CLERK 17 g NG Tube $ Given 10/04/2024 8:05 AM ACCOUNTS CLERK 17 g NG Tube polyethylene glycol 3350 (Miralax) packet 17 g 17 g, Enteral Tube, DAILY, First dose (after last modification) on Fri10/06/24 at 1430, Until Discontinued, Mix in 8 ounces of water, juice, soda, coffee or tea prior to administration $ Given 10/20/2024 8:53 AM ACCOUNTS CLERK 17 g G Tube $ Given 10/19/2024 8:30 AM ACCOUNTS CLERK 17 g G Tube $ Given 10/18/2024 8:44 AM ACCOUNTS CLERK 17 g J Tube propofol (Diprivan) 1000 mg in 100 mL infusion ADS Med 1 dose, Starting on Fri09/14/24 at 0100, Until Fri09/14/24 at 0106, Created by cabinet override Vial and Tubing should be changed and/or discarded every 12 hours. propofol (Diprivan) infusion 0-50 mcg/kg/min ? 72.6 kg (0-21.78 mL/hr), Intravenous, CONTINUOUS, Starting on Fri09/14/24 at 0145, Until Fri09/17/24 at 1447, Patient must be mechanically ventilated Above RASS goal: Assess and treat pain first if CPOT greater than 2. If agitation persists increase rate per order. At RASS goal and no change in 4 hours: Decrease rate per order. Below RASS goal (unarousable): Hold infusion until at goal RASS then restart at 50% previous rate. If significant hemodynamic changes notify physician for instructions. Notify physician for inability to reach goals despite maximal dosage. Note: The CPOT goal should be achieved first with the use of the ordered analgesic medication prior to targeting RASS goal with the sedative. Vial and Tubing should be changed and/or discarded every 12 hours., Titration Parameters: Standard Parameters, Indication: Sedation, Initiate infusion at: 5 mcg/kg/min, Titrate infusion by: 5 mcg/kg/min, Titrate every: 2 minutes, Notify physician if: Unachievable RASS goal despite max dose, Titration Priority: 1st, Restart Infusion: Medication may be restarted at last dose/rate administered before titrated to off. If infusion has been off for 4 or more hours, contact provider prior to restarting infusion. Current Rate 09/17/2024 10:56 AM ACCOUNTS CLERK 10 mcg/kg/min 4.36 mL/hr $ New Bag/Syringe 09/17/2024 7:49 AM ACCOUNTS CLERK 10 mcg/kg/min 4.3 6 mL/hr Current Rate 09/17/2024 7:08 AM ACCOUNTS CLERK 10 mcg/kg/min 4.36 mL/ hr QUEtiapine (SEROquel) tablet 100 mg 100 mg, Enteral Tube, 3 TIMES DAILY, First dose (after last modification) on Fri09/24/24 at 2100, Until Discontinued $ Given 09/28/2024 9:18 AM ACCOUNTS CLERK 100 mg ND Tu be $ Given 09/27/2024 9:34 PM ACCOUNTS CLERK 100 mg NG Tube $ Given 09/27/2024 2:19 PM ACCOUNTS CLERK 100 mg NG Tube QUEtiapine (SEROquel) tablet 100 mg 100 mg, Enteral Tube, 2 TIMES DAILY, First dose (after last modification) on Fri09/28/24 at 2100, Until Discontinued $ Given 09/29/2024 8:00 AM ACCOUNTS CLERK 100 mg NG Tu be $ Given 09/28/2024 9:37 PM ACCOUNTS CLERK 100 mg NG Tube QUEtiapine (SEROquel) tablet 100 mg 100 mg, Enteral Tube, AT BEDTIME, First dose (after last modification) on Fri09/29/24 at 2100, Until Discontinued $ Given 09/29/2024 9:04 PM ACCOUNTS CLERK 100 mg NG Tu be QUEtiapine (SEROquel) tablet 12.5 mg 12.5 mg, Enteral Tube, AT BEDTIME, First dose (after last modification) on Fri10/01/24 at 2100, Until Discontinued $ Given 10/03/2024 9:25 PM ACCOUNTS CLERK 12.5 mg NG Tu be $ Given 10/02/2024 8:45 PM ACCOUNTS CLERK 12.5 mg NG Tube $ Given 10/01/2024 9:43 PM ACCOUNTS CLERK 12.5 mg NG Tube QUEtiapine (SEROquel) tablet 25 mg 25 mg, Enteral Tube, AT BEDTIME, First dose (after last modification) on Fri09/30/24 at 2100, Until Discontinued $ Given 09/30/2024 8:27 PM ACCOUNTS CLERK 25 mg NG Tube QUEtiapine (SEROquel) tablet 50 mg 50 mg, Enteral Tube, 2 TIMES DAILY, First dose on Fri09/20/24 at 2100, Until Discontinued $ Given 09/24/2024 8:30 AM ACCOUNTS CLERK 50 mg NG Tube $ Given 09/23/2024 9:00 PM ACCOUNTS CLERK 50 mg NG Tube $ Given 09/23/2024 8:38 AM ACCOUNTS CLERK 50 mg OG Tube rocuronium (Zemuron) injection 100 mg 100 mg, Intravenous, ONCE, 1 dose, On Fri09/19/24 at 1615 $ Given 09/19/2024 3:19 PM ACCOUNTS CLERK 100 mg senna (Senokot) tablet 17.2 mg 17.2 mg, Enteral Tube, DAILY, First dose (after last modification) on Noris 10/07/24 at 0900, Until Discontinued $ Given 10/20/2024 8:54 AM ACCOUNTS CLERK 17.2 mg G Tube $ Given 10/19/2024 8:30 AM ACCOUNTS CLERK 17.2 mg G Tube $ Given 10/18/2024 8:44 AM ACCOUNTS CLERK 17.2 mg J Tube senna (Senokot) tablet 8.6 mg 8.6 mg, Enteral Tube, DAILY, First dose on Tu09/14/24 at 0900, Until Discontinued $ Given 09/21/2024 9:49 AM ACCOUNTS CLERK 8.6 mg OG Tu be $ Given 09/20/2024 9:25 AM ACCOUNTS CLERK 8.6 mg OG Tube $ Given 09/19/2024 8:34 AM ACCOUNTS CLERK 8.6 mg OG Tube senna (Senokot) tablet 8.6 mg 8.6 mg, Enteral Tube, DAILY, First dose on 10/05/24 at 1900, Until Discontinued $ Given 10/06/2024 10:26 AM ACCOUNTS CLERK 8.6 mg G Tu be $ Given 10/05/2024 9:12 PM ACCOUNTS CLERK 8.6 mg G Tube sodium chloride (Inhalant) 7 % nebulizer solution 4 mL 4 mL, Inhalation, 2 TIMES DAILY, 6 doses, First dose on 10/02/24 at 1200, Last dose on 10/04/24 at 2100 $ Given 10/05/2024 12:43 AM ACCOUNTS CLERK 4 mL $ Given 10/04/2024 8:39 AM ACCOUNTS CLERK 4 mL $ Given 10/03/2024 8:47 PM ACCOUNTS CLERK 4 mL sodium phosphate 15 mmol in dextrose 5 % 255 mL bolus 15 mmol, at 42.5 mL/hr, Administer over 6 Hours, Intravenous, ONCE, 1 dose, On Noris 09/16/24 at 0300 Current Rate 09/16/2024 6:37 AM ACCOUNTS CLERK 4 2.5 mL/hr Current Rate 09/16/2024 5:32 AM ACCOUNTS CLERK 42.5 mL/hr $ New Bag/Syringe 09/16/2024 4:04 AM ACCOUNTS CLERK 15 mmol 42.5 m L/hr sodium phosphate 15 mmol in dextrose 5 % 255 mL bolus 15 mmol, at 42.5 mL/hr, Administer over 6 Hours, Intravenous, ONCE, 1 dose, On 09/18/24 at 0600 $ New Bag/Syringe 09/18/2024 6:04 AM ACCOUNTS CLERK 15 mmol 42.5 mL/hr tamsulosin (Flomax) capsule 0.4 mg 0.4 mg, Enteral Tube, DAILY, First dose on Fri09/17/24 at 1145, Until Discontinued, At the same time every day after a meal. Do not crush or chew. May open capsule and administer contents per tube. J-tube administration is not appropriate as the small lumen would necessitate crushing of granules. $ Given 10/20/2024 8:54 AM ACCOUNTS CLERK 0.4 mg G Tube $ Given 10/19/2024 8:30 AM ACCOUNTS CLERK 0.4 mg G Tube $ Given 10/18/2024 8:45 AM ACCOUNTS CLERK 0.4 mg J Tube traZODone (Desyrel) tablet 50 mg 50 mg, Oral, AT BEDTIME, First dose on Fri10/01/24 at 2100, Until Discontinued $ Given 10/04/2024 8:34 PM ACCOUNTS CLERK 50 mg NG Tu be $ Given 10/03/2024 9:24 PM ACCOUNTS CLERK 50 mg $ Given 10/02/2024 8:45 PM ACCOUNTS CLERK 50 mg traZODone (Desyrel) tablet 75 mg 75 mg, Enteral Tube, AT BEDTIME, First dose (after last modification) on Fri10/05/24 at 2100, Until Discontinued $ Given 10/19/2024 10:03 PM ACCOUNTS CLERK 75 mg G Tube $ Given 10/18/2024 8:54 PM ACCOUNTS CLERK 75 mg G Tube $ Given 10/17/2024 9:25 PM ACCOUNTS CLERK 75 mg G Tube vasopressin 0.2 units/mL infusion 0-0.04 Units/min (0-12 mL/hr), Intravenous, CONTINUOUS, Starting on Fri09/14/24 at 1030, Until Fri09/19/24 at 1304, Central line required if infused longer than 48 hours or infusing multiple vasopressors, Titration Parameters: Standard Parameters, Indication: Hypotension, Initiate infusion at: 0.01 units/min, Titrate infusion by: 0.01 units/min, Titrate every: 15 minutes, To maintain a: MAP greater than or equal to 65 mmHg, Notify physician if: MAP less than 65 mmHg despite max dose Current Rate 09/14/2024 2:50 PM ACCOUNTS CLERK 0.04 Units/min 12 mL/hr Restarted 09/14/2024 2:40 PM ACCOUNTS CLERK 0.04 Units/min 12 mL/hr $ New Bag/Syringe 09/14/2024 10:07 AM ACCOUNTS CLERK 0.04 Units/min 1 2 mL/hr vitamin D3 (Cholecalciferol) 25 MCG (1000 UNITS) tablet 1,000 Units 1,000 Units, Enteral Tube, DAILY, First dose on Fri09/22/24 at 1415, Until Discontinued, 1000 units = 25 mcg $ Given 10/20/2024 8:54 AM ACCOUNTS CLERK 1,000 Units G T ube $ Given 10/19/2024 8:30 AM ACCOUNTS CLERK 1,000 Units G Tube $ Given 10/18/2024 8:44 AM ACCOUNTS CLERK 1,000 Units J Tube documented in this encounter Active and Recently Administered Medications Times are shown in ACCOUNTS CLERK. Scheduled Medication Order 10/18/2024 10/19/2024 10/20/2024 0.9% NaCl injection 3 mL(Linked Group 1) 3 mL, Intracatheter, EVERY 8 HOURS, First dose on Fri09/14/24 at 0045, Until Discontinued, Flush peripheral IV catheter with 3 mL of normal saline every 8 hours. 0426 (Not Administered - Provider: Klever Fernandez RN - Reason: Loss of Access)1504 (Not Administered - Provider: Lucía Lu RN - Reason: Loss of Access)2054 (Not Administered - Provider: Klever Fernandez RN - Reason: Loss of Access) 0433 ($ Given - Provider: Klever Fernandez RN)1351 (Not Administered - Provider: Lucía Lu RN - Reason: Loss of Access)2202 ($ Given - Provider: Trisha Chi RN) 0647 (Not Administered - Provider: Trisha Chi RN - Reason: Loss of Access)1354 (Not Administered - Provider: Zofia Arteaga RN - Reason: See Comments - Comment: NO IV) acetaminophen (Tylenol) tablet 1,000 mg 1,000 mg, Enteral Tube, EVERY 8 HOURS, First dose (after last modification) on Fri10/01/24 at 2200, Until Discontinued, Patient preference for lesser PRN pain meds may be honored when the patient requests a less strong medication, a lower dose, or a less intrusive route of administration when the lesser drug, dose and route have been ordered for the patient. This patient request must be documented in the MAR. If both oral and IV options are ordered for the same pain severity, give oral first unless patient cannot tolerate oral intake 0529 ($ Given - Provider: Klever Fernandez RN)1459 ($ Given - Provider: Lucía Lu RN)2055 ($ Given - Provider: Klever Fernandez RN) 0433 ($ Given - Provider: Klever Fernandez RN)1306 ($ Given - Provider: Lucía Lu RN)2202 ($ Given - Provider: Trisha Chi RN) 0650 (Not Administered - Provider: Trisha Chi RN - Reason: Refused-Patient)1355 ($ Given - Provider: Zofia Arteaga, GLORIA) enoxaparin (Lovenox) injection 30 mg 30 mg, Subcutaneous, EVERY 12 HOURS, First dose on Fri09/15/24 at 1415, Until Discontinued, (for prefilled syringes) do not expel air bubble from the syringe prior to the injection Remind Patient to not rub injection site. Could cause hematoma. 0845 ($ Given - Provider: Lucía Lu RN)2055 ($ Given - Provider: Klever Fernandez RN) 0830 ($ Given - Provider: Lucía Lu RN)2205 ($ Given - Provider: Trisha Chi RN) 0854 ($ Given - Provider: Zofia Arteaga, GLORIA) lidocaine (Lidoderm) 5 % patch 2 patch 2 patch, Administer over 12 Hours, EVERY 24 HOURS, First dose on Fri10/04/24 at 0915, Until Discontinued, Apply to back, left ribs and remove patch after a max of 12 hours of application within a 24 hour period. 1009 ($ Applied - Provider: Lucía Lu RN)2054 (Removed - Provider: Klever Fernandez RN) 0836 ($ Applied - Provider: Lucía Lu RN)2035 (Removed - Provider: Trisha Chi RN) 0853 ($ Applied - Provider: Zofia Arteaga RN)2052 (Due: Removed - Provider: Zofia Arteaga RN) melatonin tablet 5 mg 5 mg, Enteral Tube, AT BEDTIME, First dose on Fri10/05/24 at 2100, Until Discontinued 2053 ($ Given - Provider: Klever Fernandez RN) 2201 ($ Given - Provider: Trisha Chi RN) polyethylene glycol 3350 (Miralax) packet 17 g 17 g, Enteral Tube, DAILY, First dose (after last modification) on Fri10/06/24 at 1430, Until Discontinued, Mix in 8 ounces of water, juice, soda, coffee or tea prior to administration 0844 ($ Given - Provider: Lucía Lu RN) 0830 ($ Given - Provider: Lucía Lu RN) 0853 ($ Given - Provider: Zofia Arteaga RN) senna (Senokot) tablet 17.2 mg 17.2 mg, Enteral Tube, DAILY, First dose (after last modification) on Fri10/07/24 at 0900, Until Discontinued 0844 ($ Given - Provider: Lucía Lu RN) 0830 ($ Given - Provider: Lucía Lu RN) 0854 ($ Given - Provider: Zofia Arteaga RN) tamsulosin (Flomax) capsule 0.4 mg 0.4 mg, Enteral Tube, DAILY, First dose on Fri09/17/24 at 1145, Until Discontinued, At the same time every day after a meal. Do not crush or chew. May open capsule and administer contents per tube. J-tube administration is not appropriate as the small lumen would necessitate crushing of granules. 0845 ($ Given - Provider: Lucía Lu RN) 0830 ($ Given - Provider: Lucía Lu RN) 0854 ($ Given - Provider: Zofia Arteaga RN) traZODone (Desyrel) tablet 75 mg 75 mg, Enteral Tube, AT BEDTIME, First dose (after last modification) on Fri10/05/24 at 2100, Until Discontinued 2053 ($ Given - Provider: Klever Fernandez RN) 2202 ($ Given - Provider: Trisha Chi RN) vitamin D3 (Cholecalciferol) 25 MCG (1000 UNITS) tablet 1,000 Units 1,000 Units, Enteral Tube, DAILY, First dose on Fri09/22/24 at 1415, Until Discontinued, 1000 units = 25 mcg 0844 ($ Given - Provider: Lucía Lu, GLORIA) 0830 ($ Given - Provider: Lucía Lu RN) 0854 ($ Given - Provider: Zofia Arteaga RN) PRN Medication Order 10/18/2024 10/19/2024 10/20/2024 0.9% NaCl injection 1-10 mL(Linked Group 1) 1-10 mL, Intracatheter, PRN, Other, peripheral line flush, Starting on Fri09/14/24 at 0001, Until Fri10/20/24 at 1716, Flush peripheral IV catheter with 1-10 mL of normal saline before and after medications and prn to clear blood from the line or to verify patency. albuterol-ipratropium (Duo-Neb) nebulizer solution 3 mL 3 mL, Inhalation, EVERY 6 HOURS PRN, Shortness of Breath, Wheezing, Starting on Fri10/06/24 at 1400, Until Fri10/20/24 at 1716 bisacodyl (Dulcolax) suppository 10 mg 10 mg, Rectal, DAILY PRN, Constipation, Starting on Noris 10/07/24 at 1234, Until Fri10/20/24 at 1716, Remove suppository from packaging and insert into rectum. Retain for 15 minutes or as long as tolerated. oxyCODONE (immediate release) (Roxicodone) tablet 2.5 mg(Linked Group 2) 2.5 mg, Enteral Tube, EVERY 6 HOURS PRN, Moderate Pain, Mild Pain, Starting on Fri10/01/24 at 1335, Until Fri10/20/24 at 1716, Patient preference for lesser PRN pain meds may be honored when the patient requests a less strong medication, a lower dose, or a less intrusive route of administration when the lesser drug, dose and route have been ordered for the patient. This patient request must be documented in the MAR. If both oral and IV options are ordered for the same pain severity, give oral first unless patient cannot tolerate oral intake 2203 (See Alternative - Provider: Trisha Chi RN) oxyCODONE (immediate release) (Roxicodone) tablet 5 mg(Linked Group 2) 5 mg, Enteral Tube, EVERY 6 HOURS PRN, Severe Pain, Starting on Fri10/01/24 at 1335, Until Fri10/20/24 at 1716, Patient preference for lesser PRN pain meds may be honored when the patient requests a less strong medication, a lower dose, or a less intrusive route of administration when the lesser drug, dose and route have been ordered for the patient. This patient request must be documented in the MAR. If both oral and IV options are ordered for the same pain severity, give oral first unless patient cannot tolerate oral intake 2203 ($ Given - Provider: Trisha Chi RN) Linked Groups Order Group 1: SALINE LOCK, INSERT AND MAINTAIN (CANCELED) Routine, CONTINUOUS, Starting on Fri09/14/24 at 0015, Until Specified, New collection, Task Completed: Yes And 0.9% NaCl injection 3 mLJump to med 3 mL, Intracatheter, EVERY 8 HOURS, First dose on Fri09/14/24 at 0045, Until Discontinued, Flush peripheral IV catheter with 3 mL of normal saline every 8 hours. And 0.9% NaCl injection 1-10 mLJump to med 1-10 mL, Intracatheter, PRN, Other, peripheral line flush, Starting on Fri09/14/24 at 0001, Until Fri10/20/24 at 1716, Flush peripheral IV catheter with 1-10 mL of normal saline before and after medications and prn to clear blood from the line or to verify patency. Group 2: oxyCODONE (immediate release) (Roxicodone) tablet 5 mgJump to med 5 mg, Enteral Tube, EVERY 6 HOURS PRN, Severe Pain, Starting on Fri10/01/24 at 1335, Until Fri10/20/24 at 1716, Patient preference for lesser PRN pain meds may be honored when the patient requests a less strong medication, a lower dose, or a less intrusive route of administration when the lesser drug, dose and route have been ordered for the patient. This patient request must be documented in the MAR. If both oral and IV options are ordered for the same pain severity, give oral first unless patient cannot tolerate oral intake Or oxyCODONE (immediate release) (Roxicodone) tablet 2.5 mgJump to med 2.5 mg, Enteral Tube, EVERY 6 HOURS PRN, Moderate Pain, Mild Pain, Starting on Fri10/01/24 at 1335, Until Fri10/20/24 at 1716, Patient preference for lesser PRN pain meds may be honored when the patient requests a less strong medication, a lower dose, or a less intrusive route of administration when the lesser drug, dose and route have been ordered for the patient. This patient request must be documented in the MAR. If both oral and IV options are ordered for the same pain severity, give oral first unless patient cannot tolerate oral intake documented in this encounter Additional Health Concerns Infection Onset Date Last Indicated Resolved Time COVID-19 Under Investigation 10/06/2024 10/06/2024 10/06/2024 4:25 PM ACCOUNTS CLERK documented as of this encounter Care Teams Flight Control Tower Operator Relationship Specialty Start Date End Date Ivis Marie RN Registered Nurse 09/14/24 documented as of this encounter
--- OUTSIDE RECORDS SUMMARY | 2024-11-07 04:56 | XMS_ITS | Encounter Summary ---
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 10/11/2024 8:30 [...] treatment and care. Description: INTERVENTIONS Outcome: Progressing T HARVESTER MACHINE OPERATOR * Sean Nataraajn MD - 10/11/2024 7:42 AM CST Trauma [...] restraints, Alert to self this am 10/09: DEBORAHON VSS 10/08: NAEON. VSS. Tolerating tube feeds. Removed mittens this morning, nursing working on redirection. Abdominal binder in place. Pt requesting to eat, re- engaging speech. 10/07: NAEON. VSS on 2 L NC. Pt in mitten restraints. Abdominal binder in place. PEG tube running tube feeds. Bats examiners hands away during exam, does not verbally respond. 10/06: CARLEE TF initiated through PEG, Pt alert to self, NC 2L, attempting to wean restraints 10/05: NAEON. VSS. PEG tube today. Plan to restart tube feeds via dobhoff after OR. Pt somnolent, groans when moving legs. Consulting palliative team today for goals of care discussions. 10/04: GRAYSONEON VSS, weaned to 2 L with no [...] discussed with family and extubated patient to UT. 1-2 hours following extubation, patient required escalation to NRB and HFNC, thus re-intubated. Again doing well on vent per ABG and SPO2. Levo weaned to 0.01, precedex increased to 0.09 due to pt pulling at ETT and lines. Graham removed againovernight per nurse clinical research manager, however pt straight cathed x2 for [...] 1,000 mg 1,000 mg Enteral Tube q8h Tesas Gonzáles PA-C 1,000 mg at 10/11/24 0552 [...] q12h Yolanda Crane, DO 30 mg at 10/11/24 0511 furosemide [...] BEDTIME Tessa Gonzáles PA-C 5 mg at 10/10/24 202 Meningococcal Conjugate Vaccine, ACWY (Menveo; 10y-55y) (MenACWY-CRM) 0.5 mL 0.5 mL Intramuscular Immunization - Once Kathy Mendoza APRN-CNP Meningococcal Serogroup B Vaccine (Bexsero; 10y+) (MenB-4C) 0.5 mL 0.5 mL Intramuscular Immunization - Once Kathy Mendoza APRN-LICENSING REPRESENTATIVE oxyCODONE (immediate release) (Roxicodone) tablet 5 mg 5 mg Enteral Tube q6h PRN Francisco Gould MD 5 mg at 10/11/24 0300 Or oxyCODONE (immediate release) (Roxicodone) tablet 2.5 mg 2.5 mg Enteral Tube q6h PRN Francisco Gould MD Pneumococcal Conjugate Vaccine, 20 valent (Prevnar 20; 6wk+) (PCV20) 0.5 mL 0.5 mL Intramuscular Immunization - Once Kathy Mendoza APRN-LICENSING REPRESENTATIVE polyethylene glycol 3350 (Miralax) packet 17 g 17 g Enteral Tube QDAY Kathy Mendoza, REGISTERED RESPIRATORY THERAPIST-LICENSING REPRESENTATIVE 17 gat 10/10/24 1003 senna (Senokot) tablet 17.2 mg 17.2 mg Enteral Tube QDAY Kathy Mendoza APRN- LICENSING REPRESENTATIVE 17.2 mg at 10/10/24 1002 tamsulosin (Flomax) [...] today. Sean Natarajan MD 10/11/2024 10:12 AM T HARVESTER MACHINE OPERATOR * Kathy Mendoza, REGISTERED RESPIRATORY THERAPIST-LICENSING REPRESENTATIVE - 10/10/2024 12:31 PM CST Trauma Floor [...] of restraints, Alert to self this am 12/14: NAEON, VSS 10/08: NAEON. VSS. Tolerating tube [...] 100mg TID. 09/24: Patient extubated yesterday to UT. Remains stable on 6L NC. Dobhoff placed [...] discussed with family and extubated patient to UT. 1-2 hours following extubation, patient required escalation to NRB and HFNC, thus re-intubated. Again doing well on vent per ABG and SPO2. Levo weaned to 0.01, precedex increased to 0.09 due to pt pulling at ETT and lines. Graham removed againovernight per nurse clinical research manager, however pt straight cathed x2 for [...] 3 mL Inhalation q6h PRN Kathy Mendoza, REGISTERED RESPIRATORY THERAPIST-LICENSING REPRESENTATIVE aspirin chew tablet 81 mg 81 mg Enteral Tube QDAY Tigist Guerra DO 81 mg at 10/10/24 1002 bisacodyl [...] mL Intramuscular Immunization - Once Kathy Mendoza REGISTERED RESPIRATORY THERAPIST-LICENSING REPRESENTATIVE oxyCODONE (immediate release) (Roxicodone) tablet 5 mg 5 mg Enteral Tube q6h PRN Francisco Gould MD 5 mg at 10/10/24 0100 Or oxyCODONE (immediate release) (Roxicodone) tablet 2.5 mg 2.5 mg Enteral Tube q6h PRN Francisco Gould MD [START ON 10/11/2024] Pneumococcal Conjugate Vaccine, 20 valent (Prevnar 20; 6wk+) (PCV20) 0.5 mL 0.5 mL Intramuscular Immunization - Once Kathy Mendoza REGISTERED RESPIRATORY THERAPIST-LICENSING REPRESENTATIVE polyethylene glycol 3350 (Miralax) packet 17 g 17 g Enteral Tube QDAY Kathy Mendoza REGISTERED RESPIRATORY THERAPIST-LICENSING REPRESENTATIVE 17 g at 10/10/24 1003 senna (Senokot) tablet 17.2 mg 17.2 mg Enteral Tube QDAY Kathy Mendoza, REGISTERED RESPIRATORY THERAPIST- LICENSING REPRESENTATIVE 17.2 mg at 10/10/24 1002 tamsulosin (Flomax) capsule 0.4 mg 0.4 mg Enteral Tube QDAY Thang Gaines DO 0.4 mg at 10/10/24 1002 traZODone (Desyrel) tablet 75 mg 75 mg Enteral Tube AT BEDTIME Tessa Gonzáles PA-C 75 mg at 10/09/242023 vitamin D3 (Cholecalciferol) 25 MCG (1000 UNITS) tablet 1,000 Units 1,000 Units Enteral Tube QDAY Thang Gaines DO 1,000 Units at 10/10/24 1002 Review [...] CBC: Recent Labs Component Name 10/08/24 0707 10/06/2461110/05/24 06 WBC 9.3 10.6 12.0* HGB 10.0* 9.7* [...] Barrier to discharge: SNF placement Kathy Mendoza APRN-LICENSING REPRESENTATIVE 10/10/2024 12:32 PM T HARVESTER MACHINE OPERATOR Associated attestation - Bong Edmondson MD - 10/11/2024 3:05 PM 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 Patient seen and examined with the residents. Please see note for further details. Patient's lab values and radiology images noted in this report were personally reviewed by me with my interpretations as below, unless otherwise indicated. I confirm history, exam, assessment and plan, except where it may differ from my own as stated below. Bong Edmondson MD * Zofia Arteaga, GLORIA - 10/10/2024 8:21 AM CST Problem: Pain/Discomfort [...] agreement, if implemented Description: INTERVENTIONS Outcome: Progressing T HARVESTER MACHINE OPERATOR * Zofia Arteaga RN - 10/09/2024 12:21 [...] 1220 by Zofia Arteaga RN Outcome: Progressing T HARVESTER MACHINE OPERATOR * Zofia Arteaga RN - 10/09/2024 12:20 [...] effective coping strategies Description: INTERVENTIONS Outcome: Progressing T HARVESTER MACHINE OPERATOR * Kathy Mendoza, REGISTERED RESPIRATORY THERAPIST-LICENSING REPRESENTATIVE - 10/09/2024 9:15 AM CST Trauma Floor [...] today for goals of care discussions. 10/04: NAKaiON VSS, weaned to 2 L with no [...] 100mg TID. 09/24: Patient extubated yesterday to UT. Remains stable on 6L NC. Dobhoff placed [...] discussed with family and extubated patient to UT. 1-2 hours following extubation, patient required escalation to NRB and HFNC, thus re-intubated. Again doing well on vent per ABG and SPO2. Levo weaned to 0.01, precedex increased to 0.09 due to pt pulling at ETT and lines. Graham removed againovernight per nurse clinical research manager, however pt straight cathed x2 for [...] mg 1,000 mg Enteral Tube q8h Tessa Gonázles PA-C 1,000 mg at 10/09/24 0626 albuterol-ipratropium (Duo-Neb) nebulizer solution 3 mL 3 mL Inhalation q6h PRN Kathy Mendoza, REGISTERED RESPIRATORY THERAPIST-LICENSING REPRESENTATIVE aspirin chew tablet 81 mg 81 mg Enteral Tube QDAY Tigist Guerra F, DO 81 mg at 10/08/24 0834 bisacodyl (Dulcolax) suppository 10 mg 10 mg Rectal QDAY PRN Tessa Gonzáles PA-C enoxaparin (Lovenox) injection 30 mg 30 mg Subcutaneous q12h Yolanda Crane, DO 30 mg at 10/08/24 2137 furosemide (Lasix) tablet 20 mg 20 mg Oral QDAY Tessa Gonzáles PA-C 20 mg at 10/08/24 0834 lidocaine (Lidoderm) 5 % patch 2 patch 2 patch Transdermal q24h Kathy eMndoza, REGISTERED RESPIRATORY THERAPIST-LICENSING REPRESENTATIVE 2 patch at112/09/23 0835 melatonin tablet 5 [...] 17 g Enteral Tube QDAY Kathy Mendoza, REGISTERED RESPIRATORY THERAPIST-LICENSING REPRESENTATIVE 17 gat 10/07/24 0804 senna (Senokot) tablet 17.2 mg 17.2 mg Enteral Tube QDAY Kathy Mendoza, REGISTERED RESPIRATORY THERAPIST- LICENSING REPRESENTATIVE 17.2 mg at 10/07/24 0803 tamsulosin (Flomax) [...] BP Temp Temp src Pulse Resp SpO2 12/14/24 0742 126/63 97.2 ??F (36.2 ??C) Oral [...] Barrier to discharge: SNF placement Kathy Mendoza APRN-LICENSING REPRESENTATIVE 10/09/2024 2:44 PM T HARVESTER MACHINE OPERATOR Associated attestation - Bong Edmondson MD - 10/09/2024 4:54 PM 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 Patient seen and examined with the residents. [...] at 1100, abd binder remains in place. [place] collar pads replaced. Problem: Mechanical Ventilation Goal: [...] injury from restraints Description: INTERVENTIONS: Outcome: Progressing T HARVESTER MACHINE OPERATOR * Yolanda Juárez COTA - 10/08/2024 12:05 PM CST [facility] Occupational Therapy Progress Note Patient: Lucian Sosa Med Record Number: [id number] Date of : 1940 Age: [age] year [...] (washed face seated EOB) ACTIVITY TOLERANCE: Modified Caroline: AM-PAC 6 Clicks Daily Activity Raw Score:: [...] sit with moderate assist and X 2 Display Fabrication Supervisor Goal(s): Patient to discharge to appropriate next [...] in room, with CP in room, with RN, Beverly gomez, all lines/tubes intact. T HARVESTER MACHINE OPERATOR * Marcella Wells, RN - 10/08/2024 11:12 AM CST Care Coordination Progress Note Expected Discharge Date: 10/08/2024 Discharge Plan: PT/OT recommending rehab. SW is following for placement; will manage referrals, transfer, and transportation when medically ready. Continued Care and Services - Admitted Since 09/13/2024 Destination Service Provider Request Status Selected Services Address Phone Fax Patient Preferred [facility] Pending - No Request Sent -- [address] [facility] [address] [phone] -- [facility] Pending - No Request Sent -- [address] [facility] [address] -- [facility]. Acute Rehab Pending - No Request Sent -- [address] [facility] [phone] -- Family Support (Name and Phone): Extended Emergency Contact Information Primary Emergency Contact: Anamaria Gomez Mobile Relation: Daughter Secondary Emergency Contact: Lilliam Campbell [place] Relation: Grandchild Preferred language: South Korean Dog Food Dough Mixer needed? No Transportation at Discharge: Family: EMS READMISSION RISK SCORE is 14 at 11:12 AM 10/08/2024.: [email or web address] SABRINA, JEAN, MA-Certification, A.D.N, BSN [phone] T HARVESTER MACHINE OPERATOR * Izabel Yoder, RICH - 10/08/2024 10:32 AM CST [facility] Physical Therapy Progress Note Patient: Lucian Sosa Med Record Number: [id number] Date of : 1940 Age: [age] year [...] as Tolerated Spine Precautions: Yes Spine Precautions: [place] OBJECTIVE: At start of therapy session, patient [...] assist with appropriate AD - added 10/08 Display Fabrication Supervisor Goal(s): Patient to discharge to appropriate next [...] nick lift for transfer back to bed. T HARVESTER MACHINE OPERATOR * Tessa Gonzáles PA-C - 10/08/2024 8:17 [...] 100mg TID. 09/24: Patient extubated yesterday to UT. Remains stable on 6L NC. Dobhoff placed [...] discussed with family and extubated patient to UT. 1-2 hours following extubation, patient required escalation to NRB and HFNC, thus re-intubated. Again doing well on vent per ABG and SPO2. Levo weaned to 0.01, precedex increased to 0.09 due to pt pulling at ETT and lines. Graham removed againovernight per nurse clinical research manager, however pt straight cathed x2 for [...] 3 mL Inhalation q6h PRN Kathy Mendoza, REGISTERED RESPIRATORY THERAPIST-LICENSING REPRESENTATIVE aspirin chew tablet 81 mg 81 mg Enteral Tube QDAY Tigist Guerra F, DO 81 mg at 10/07/24 0803 bisacodyl (Dulcolax) suppository 10 mg 10 mg Rectal QDAY PRN Tessa Gonzáles PA-C enoxaparin (Lovenox) injection 30 mg 30 mg Subcutaneous q12h Yolanda Crane, 30 mg at 10/07/24 2108 furosemide (Lasix) tablet 20 mg 20 mg Oral QDAY Tessa Gonzáles PA-C 20 mg at 10/07/24 0804 lidocaine (Lidoderm) 5 % patch 2 patch 2 patch Transdermal q24h Kathy Mnedoza, REGISTERED RESPIRATORY THERAPIST-LICENSING REPRESENTATIVE 2 patch at112/08/23 0804 melatonin tablet 5 [...] 17 g Enteral Tube QDAY Kathy Mendoza, REGISTERED RESPIRATORY THERAPIST-LICENSING REPRESENTATIVE 17 gat 10/07/24 0804 senna (Senokot) tablet 17.2 mg 17.2 mg Enteral Tube QDAY Kathy Mendoza, REGISTERED RESPIRATORY THERAPIST- LICENSING REPRESENTATIVE 17.2 mg at 10/07/24 0803 tamsulosin (Flomax) [...] Phos prn Serum creatinine: 0.66 mg/dL (L) 10/06/24611 Estimated creatinine clearance: 85.8 mL/min (A) Recent [...] placement. Tessa Gonzáles PA-C 10/08/2024 8:18 AM T HARVESTER MACHINE OPERATOR Associated attestation - Bong Edmondson MD - 10/09/2024 7:41 AM 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 Patient seen and examined with the residents. [...] Massey MD - 10/08/2024 5:24 AM CST [facility] Orth[facility] Spine Surgery Daily Progress Note Lucian Sosa, 84 year old, male : 1940 CSN: [id number] Primary Care Physician: No primary care provider [...] results for input(s): INR in the last 28738 hours. Physical Exam General: Not following commands, [...] questions or concerns. Please do not use [employer] Secure Chat for communications regarding direct patient care. [facility] Orthopedic Surgery office contact information: [facility] at [address], First [place] [address], [place] [address] [place], [place] [id number] Asa Massey MD 10/08/2024 5:24 AM T HARVESTER MACHINE OPERATOR Associated attestation - Keegan Collier MD - 10/08/2024 9:46 AM 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 Please see the note performed by our team's Resident. The patient was discussed with the note rewriter. I did not personally see the patient; I reviewed the imaging independently, discussed the physical exam findings with the note rewriter, and reviewed thepertinent information in the medical [...] is needed from ourteam. Tigist Caceres, MSN, REGISTERED RESPIRATORY THERAPIST, [facility] Palliative Care Nurse Practitioner Office: [phone] Pager: [phone] T HARVESTER MACHINE OPERATOR * Tessa Rodriguez, PENNY/EMMETT - 10/07/2024 2:09 [...] interval not displayed. Recent Labs Component Name 10/06/2461110/01/2471609/30/24 0034 PHOS 4.0 3.3 3.1 Recent Labs Component Name 10/06/2412 10/01/24 0717 09/30/24 0125 MAGNESIUM 2.4 2.4 2.3 Recent Labs Component Name 10/06/2461110/05/24 0607 10/04/24 0743 HGB 9.7* 9.8* 10.2* [...] Foot Edema: Non-pitting (10/01/242114) LLE Edema: Non-pitting (10/06/24 1025) L Foot Edema: Non-pitting (10/01/242114) Nutrition Diagnostic [...] Nutrition Goal Progress: Continue with current goal Tessa Rodriguez RD/EMMETT Ascom:[id number] T HARVESTER MACHINE OPERATOR * Yolanda Juárez COTA - 10/07/2024 11:25 AM CST [facility] Department of Physical Medicine & Rehabilitation Progress Note Patient: Lucian Sosa Med Record Number: [id number] Date of : 1940 Age: [age] year old 10/07/24 0915 Missed Visit Missed Visit Refused Patient refused therapy intervention due to RN Notified of Refusal Patient not following commands on arrival. Attempted tactile, verbal, painful and cold stimuli. Patient does not respond with any meaningful response. RNMarzena, made aware. T HARVESTER MACHINE OPERATOR * Yolanda Juárez COTA - 10/07/2024 11:25 AM CST [facility] Occupational Therapy Progress Note Patient: Lucian Sosa Med Record Number: [id number] Date of : 1940 Age: [age] year [...] therapists Pain Assessment: Pain Assessment Pain Scale/Observation: STEPHANI Pain Rating Score #1: 0 Sedation Level: [...] recall of recent events;Decreased short term memory;Decreased prison memory Following Commands: Follows one step commands [...] bring washcloth to mouth) ACTIVITY TOLERANCE: Modified Caroline: AM-PAC 6 Clicks Daily Activity Raw Score:: [...] sit with moderate assist and X 2 Display Fabrication Supervisor Goal(s): Patient to discharge to appropriate next [...] in room, with CP in room, with RN, Marzena aware, with fall mats in place, all lines/tubes intact. T HARVESTER MACHINE OPERATOR * Izabel Yoder, PT - 10/07/2024 11:25 AM CST [facility] Physical Therapy Progress Note Patient: Lucian Sosa Med Record Number: [id number] Date of : 1940 Age: [age] year [...] as Tolerated Spine Precautions: Yes Spine Precautions: [place] OBJECTIVE: At start of therapy session, patient [...] EOB x10 minutes with fair sitting balance Display Fabrication Supervisor Goal(s): Patient to discharge to appropriate next [...] all lines/tubes intact, in chair position . T HARVESTER MACHINE OPERATOR * Izabel Yoder, PT - 10/07/2024 9:13 AM CST [facility] Department of Physical Medicine & Rehabilitation Progress Note Patient: Lucian Sosa Med Record Number: [id number] Date of : 1940 Age: [age] year old 10/07/24 0913 Missed Visit Missed Visit Other (Comment) Patient not following commands on arrival. Attempted tactile, verbal, painful and cold stimuli. Patient does not respond with any meaningful response. RN made aware. T HARVESTER MACHINE OPERATOR * Ivana Santamaria RN - 10/07/2024 9:07 [...] more.: Never true Name: Ivana Santamaria RN T HARVESTER MACHINE OPERATOR * Tessa Gonzáles PA-C - 10/07/2024 8:48 [...] 100mg TID. 09/24: Patient extubated yesterday to UT. Remains stable on 6L NC. Dobhoff placed [...] discussed with family and extubated patient to UT. 1-2 hours following extubation, patient required escalation to NRB and HFNC, thus re-intubated. Again doing well on vent per ABG and SPO2. Levo weaned to 0.01, precedex increased to 0.09 due to pt pulling at ETT and lines. Graham removed againovernight per nurse clinical research manager, however pt straight cathed x2 for [...] q12h Yolanda Crane DO 30 mg at 10/07/24 0804 furosemide [...] 17 g Enteral Tube QDAY Kathy Mendoza, REGISTERED RESPIRATORY THERAPIST-LICENSING REPRESENTATIVE 17 gat 10/07/24 0804 senna (Senokot) tablet 17.2 mg 17.2 mg Enteral Tube QDAY Kathy Mendoza, REGISTERED RESPIRATORY THERAPIST- LICENSING REPRESENTATIVE 17.2 mg at 10/07/24 0803 tamsulosin (Flomax) [...] placement. Tessa Gonzáles PA-C 10/07/2024 8:48 AM T HARVESTER MACHINE OPERATOR Associated attestation - Bong Edmondson MD - 10/07/2024 3:08 PM 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 Patient seen and examined with the residents. [...] 110* 108* 110* 107 - CO2 27 25 27 24 28 - BUN 26 22 25 25 28* - CREATININE 0.66* 0.51* 0.50* 0.45* 0.56* - GLUCOSE 107* 133* 124* 138* 144* - CALCIUM 8.8 8.8 8.5 8.5 8.2* - MAGNESIUM 2.4 - - 2.4 2.3 - PHOS 4.0 - - 3.3 - 3.1 Coags No results for input(s): PT , INR , PTT in the last 19295 hours. Vitamin D Recent Labs Component Name 09/14/24 0013 XXDP51GH 17.9* Vitals BP 112/63 (BP Location: Left [...] please contact Ortho Trauma APPs or send Lytro chat to PATRIC. For urgent questions, please page Ortho Trauma service pager through [employer]. To avoid delays in communication and patient care, please do not use [employer] Secure Chat. Patient will require follow up in the office with Dr. Roldan 2 week(s) after discharge. Ortho office staff to help arrange. Please notify Ortho Trauma PATRIC when patient is ready for discharge. Patient should have XR pelvis, left scapula at follow up. Contact information below: [facility] Office Schedulers: [phone], option 1 Francisco Garcia MD 10/07/2024 6:14 AM T HARVESTER MACHINE OPERATOR Associated attestation - Marcella Roldan MD - 10/11/2024 8:40 AM 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 ATTENDING ADDENDUM: Patient discussed during rounds. I [...] Gomez Mobile Relation: Daughter Secondary Emergency Contact: [facility] Relation: Grandchild Preferred language: South Korean Dog Food Dough Mixer needed? No Comments: SW attempted to call daughter for SNF preferences, as previous SW sent ARU referrals. PT OT recommends SNF. SW left VM and callback number. Pt still in restraints. Name/Phone number: EASTON Espinoza [phone] T HARVESTER MACHINE OPERATOR * Orlando Grimes RN - 10/06/2024 12:03 PM CST Care Coordination Progress Note Expected Discharge Date: 10/06/2024 Discharge Plan: SNF recommended for this patient. CM will continue to follow Family Support (Name and Phone): Extended Emergency Contact Information Primary Emergency Contact: Anamaria Gomez Mobile Relation: Daughter Secondary Emergency Contact: [facility] Relation: Grandchild Preferred language: [place] Dog Food Dough Mixer needed? No Transportation at Discharge: Family: READMISSION RISK SCORE is 14 at 12:03 PM 10/06/2024.: Name: Orlando Grimes RN T HARVESTER MACHINE OPERATOR * Kathy Mendoza, REGISTERED RESPIRATORY THERAPIST-LICENSING REPRESENTATIVE - 10/06/2024 8:21 AM CST Trauma Floor [...] on any prescription medications Interval History: 10/06: NAEON, TF initiated through PEG, Pt [...] 100mg TID. 09/24: Patient extubated yesterday to UT. Remains stable on 6L NC. Dobhoff placed [...] discussed with family and extubated patient to UT. 1-2 hours following extubation, patient required escalation to NRB and HFNC, thus re-intubated. Again doing well on vent per ABG and SPO2. Levo weaned to 0.01, precedex increased to 0.09 due to pt pulling at ETT and lines. Graham removed againovernight per nurse clinical research manager, however pt straight cathed x2 for [...] 1-10 mL Intracatheter PRN Chris Bowden Anes Asst 0.9% NaCl injection 3 mL 3 [...] Intravenous q10 min PRN Chris Bowden Anes Assramya fentaNYL (PF) (Sublimaze) injection 50 mcg 50 mcg Intravenous q10 min PRN Chris Bowden Anes Asst furosemide (Lasix) tablet 20 mg 20 mg Oral QDAY Tessa Gonzáles PA-C 20 mg at 10/05/24 0953 guaiFENesin (Robitussin) solution 10 mL 10 mL Oral q6h Tessa Gonzáles PA-C 10 mL at 10/06/24 0638 hydrALAZINE (Apresoline) injection 5 mg 5 mg Intravenous post-OP multiple NamaryemChris Anes Asst HYDROmorphone (Dilaudid) injection 0.5 mg 0.5 mg Intravenous q10 min PRN Chris Bowden Anes Asst labetalol (Normodyne; Trandate) injection 5 mg 5 mg Intravenous post-OP multiple NayeemChris Anes Asst lidocaine (Lidoderm) 5 % patch 2 patch 2 patch Transdermal q24h Kathy Mendoza, REGISTERED RESPIRATORY THERAPIST-LICENSING REPRESENTATIVE 2 patch at112/06/23 0953 melatonin tablet 5 mg 5 mg Enteral Tube AT BEDTIME Tessa Gonzáles PA-C 5 mg at 10/05/24 2111 naloxone (Narcan) injection 0.04 mg 0.04 mg Intravenous post-OP multiple NaChris johnson Anes Asst ondansetron (Zofran) injection 4 mg [...] QDAY Tessa Gonzáles PA-C 8.6 mg at 10/05/24 2112 tamsulosin (Flomax) capsule 0.4 mg 0.4 mg Enteral Tube QDAY Thang Gaines DO 0.4 mg at 10/05/24 0953 traZODone (Desyrel) tablet 75 mg 75 mg Enteral Tube AT BEDTIME Tessa Gonzáles PA-C 75 mg at 10/05/242111 vitamin D3 (Cholecalciferol) 25 MCG (1000 UNITS) tablet 1,000 Units 1,000 Units Enteral Tube QDAY EderThang, DO 1,000 Units at 10/05/24 0953 Review of Systems Unable to perform ROS: [...] started, wean restraints, SNF placement Kathy Mendoza APRN-LICENSING REPRESENTATIVE 10/06/2024 8:44 AM T HARVESTER MACHINE OPERATOR Associated attestation - Bong Edmondson MD - 10/07/2024 3:08 PM 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 Patient seen and examined with the residents. [...] 12.5mg D50, order implemented and rechecked blood [id number]. Condition update provided to Dr Mayfield, received okay to transfer out of PACU, will implement. T HARVESTER MACHINE OPERATOR * Kristen Gregory, OT - 10/05/2024 4:24 PM CST [facility] Occupational Therapy Progress Note Patient: Lucian Sosa Med Record Number: [id number] Date of : 1940 Age: [age] year [...] bearing) Activity Level: Activity as Tolerated (in [place]) Spine Precautions: Yes Spine Precautions: [place] SUBJECTIVE: Subjective: Patient agreeable to treatment session, [...] sit with moderate assist and X 2 Display Fabrication Supervisor Goal(s): Patient to discharge to appropriate next [...] with family in room, all lines/tubes intact. T HARVESTER MACHINE OPERATOR * Charlene Milligan MSW - 10/05/2024 4:11 PM CST SW following pt for SNF acceptance. Pt will need insurance auth. Charlene Munson [phone] T HARVESTER MACHINE OPERATOR * Bong Edmondson MD - 10/05/2024 2:09 PM CST Plan for OR today for percutaneous endoscopic gastrostomy tube placement. Bong Edmondson MD T HARVESTER MACHINE OPERATOR * Jeanine Orozco, PT - 10/05/2024 2:05 PM CST [facility] Department of Physical Medicine & Rehabilitation Progress Note Patient: Lucian Sosa Med Record Number: [id number] Date of : 1940 Age: [age] year old 10/05/24 1405 Missed Visit Missed Visit Other (Comment) Attempted PT session with OT. Pt drowsy with minimal command following/participation. OT proceeded with bed level session. Will cont to follow. T HARVESTER MACHINE OPERATOR * Tesha Jimenez RD/NABOR - 10/05/2024 1:10 PM CST BRIEF SYNOPSIS: [...] wound to lower leg Estimated Needs: KCAL: 4548-0904 (25-30kcal/kg (ABW)) Protein (g): 85-110g (1.0-1.3g/kg (ABW)) [...] Tube, q6h PRN Edema Generalized Edema: None (10/04/24807) RUE Edema: Mild pitting, slight indentation (10/01/242114) R Hand Edema: Mild pitting, slight indentation (10/01/242114) LUE Edema: Mild pitting, sligh indentation (10/01/242114) L Hand Edema: Mild pitting, slight indentation (10/01/242114) RLE Edema: Mild pitting, slight indentation (10/01/240) R Foot Edema: Non-pitting (10/01/242114) LLE Edema: [...] Progress: Continue with current goal [id number] T HARVESTER MACHINE OPERATOR * Tessa Gonzáles PA-C - 10/05/2024 8:16 [...] discussed with family and extubated patient to UT. 1-2 hours following extubation, patient required escalation to NRB and HFNC, thus re-intubated. Again doing well on vent per ABG and SPO2. Levo weaned to 0.01, precedex increased to 0.09 due to pt pulling at ETT and lines. Graham removed againovernight per nurse clinical research manager, however pt straight cathed x2 for [...] tablet 20 mg 20 mg Oral QDAY eTssa Gonzáles PA-C 20 mg at 10/04/24 0805 guaiFENesin (Robitussin) solution 10 mL 10 mL Oral q6h Tessa Gonzáles PA-C 10 mL at 10/04/24 2311 lidocaine (Lidoderm) 5 % patch 2 patch 2 patch Transdermal q24h Kathy Mendoza, REGISTERED RESPIRATORY THERAPIST-LICENSING REPRESENTATIVE 2 patch at112/05/23 0951 oxyCODONE (immediate release) (Roxicodone) tablet 5 mg 5 mg Enteral Tube q6h PRN Francisco Gould MD 5 mg at 10/04/24 0824 Or oxyCODONE (immediate release) (Roxicodone) tablet 2.5 mg 2.5 mg Enteral Tube q6h PRN Francisco Gould MD polyethylene glycol 3350 (Miralax) packet 17 g 17 g Enteral Tube QDAY Luis Eugene MD 17 g at112/05/23 0805 tamsulosin (Flomax) capsule 0.4 mg 0.4 mg [...] restraints. Tessa Gonzáles PA-C 10/05/2024 8:16 AM T HARVESTER MACHINE OPERATOR Associated attestation - Bong Edmondson MD - 10/05/2024 6:13 PM 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 Patient seen and examined with the residents. [...] injury from restraints Description: INTERVENTIONS: Outcome: Progressing T HARVESTER MACHINE OPERATOR * Rock Aldridge BUSINESS CONTINUITY STRATEGY DIRECTOR - 10/04/2024 4:28 PM CST Social Work Progress Note MAGALI spoke to Fitness And Wellness ManagerAnamaria avila (Daughter) [phone] and she would like to discuss her options for rehab in [place] as well as [place] for now. SW will email her a list to [email or web address] and she will give a decision on tomorrow. MAGALI will continue to follow up for any further discharge needs. Discharge Plan Disposition: Transportation (if ambulance rationale): Transportation at discharge: Family Anticipated Discharge Date: 10/06/2024 Contacts: Extended Emergency Contact Information Primary Emergency Contact: Anamaria Gomez Mobile Relation: Daughter Secondary Emergency Contact: [facility] Relation: Grandchild Preferred language: [place] Korean Dog Food Dough Mixer needed? No Have they been contacted? Name/Phone number: EASTON Diaz [phone] T HARVESTER MACHINE OPERATOR * Orlando Grimes RN - 10/04/2024 2:53 PM CST Care Coordination Progress Note Expected Discharge Date: 10/06/2024 Discharge Plan: ARU is recommended. Patient is not medically ready at this time. CM will continue to follow patient for any additional discharge needs Family Support (Name and Phone): Extended Emergency Contact Information Primary Emergency Contact: Salvador Gomeza Mobile Relation: Daughter Secondary Emergency Contact: [facility] Relation: Grandchild Preferred language: [place] Dog Food Dough Mixer needed? No Transportation at Discharge: Family: READMISSION RISK SCORE is 14 at 2:53 PM 10/04/2024.: Name: Orlando Grimes RN T HARVESTER MACHINE OPERATOR * Kd Marin RN - 10/04/2024 12:38 PM CST [facility] Update: Pt is being reviewed by [facility] for acceptance pending insurance authorization and medical stability. Will send for auth once all medical tests and procedures have been completed. Will continue to monitor for medical stability and participation in therapies. Thank you for the referral. Woody Marin Clincal Liaison. APOLONIA HOWELL, RN [facility] [email or web address] Preferred method of communication: Epic Chat T HARVESTER MACHINE OPERATOR * Tracy Rico - 10/04/2024 12:04 PM CST Dog Show Judge met with pt during rounds; he is not alert and oriented but I spoke to him and prayed withhim for healing and peace. Pastoral care support remains available 19/05. 628/01 Tracy Rico, Board Certified Dog Show Judge For Follow Up: [address] [facility] Dog Show Judge: [id number] On-Call Dog Show Judge: [id number] T HARVESTER MACHINE OPERATOR * Kd Lacey, CARLENE - 10/04/2024 11:45 AM CST [facility] Swallow Therapy Patient: Lucian Sosa Med Record Number: [id number] Date of : 1940 Age: [age] year [...] Impression - Pharyngeal: Severe Education/Interventions: While performing MAGICIAN HELPER, Patient was instructed in: results of swallow [...] oropharyngeal swallow function to warrant diet upgrade. Display Fabrication Supervisor Goal (s): Patient to be independent/baseline with functional mobility and self care and be able to safely discharge to prior level of care. Kd Munson M.A., SHAYNA-MAGICIAN HELPER Speech Language Pathologist [phone] T HARVESTER MACHINE OPERATOR * Lilliam Nicholson APRN-CNP - 10/04/2024 8:32 [...] Department of Orthopaedic Surgery 8:32 AM 10/04/2024 T HARVESTER MACHINE OPERATOR * Kathy Mendoza, ABDIAZIZ-LICENSING REPRESENTATIVE - 10/04/2024 8:29 AM CST Trauma Floor [...] 100mg TID. 09/24: Patient extubated yesterday to UT. Remains stable on 6L NC. Dobhoff placed [...] discussed with family and extubated patient to UT. 1-2 hours following extubation, patient required escalation to NRB and HFNC, thus re-intubated. Again doing well on vent per ABG and SPO2. Levo weaned to 0.01, precedex increased to 0.09 due to pt pulling at ETT and lines. Graham removed againovernight per nurse clinical research manager, however pt straight cathed x2 for [...] q4h Tigist Guerra DO 3 mL at 10/04/24 0412 aspirin chew tablet 81 mg 81 mg Enteral Tube QDAY Tigist Guerra DO 81 mg at 10/04/24 0805 enoxaparin (Lovenox) injection 30 mg 30 mg Subcutaneous q12h Yolanda Crane DO 30 mg at 10/04/24 0805 furosemide [...] BEDTIME Tessa Gonzáles PA-C 12.5 mg at112/04/23 2125 sodium chloride (Inhalant) 7 % nebulizer solution 4 mL 4 mL Inhalation BID Tessa Gonzáles PA-C 4 mLat 10/03/24 204 tamsulosin (Flomax) capsule 0.4 mg 0.4 mg Enteral Tube QDAY Thang Gaines, DO 0.4 mg at 10/04/24 0805 traZODone (Desyrel) tablet 50 mg 50 mg Oral AT BEDTIME Tessa Gonzáles PA-C 50 mg at 10/03/24 2124 vitamin D3 (Cholecalciferol) 25 MCG (1000 UNITS) tablet 1,000 Units 1,000 Units Enteral Tube QDAY Thagn Gaines DO 1,000 Units at 10/04/24 0805 Review [...] 09/16: L 3-[address] oRbert & Dr. Almanza and 2 chest tubes [...] daily Recent Labs Component Name 10/04/24 0743 10/02/242 10/02/24 0340 WBC 14.2* 13.6* 12.4* HGB [...] TP fracture -Ospine consulted - AAT in [place] - uprights when able -Uprights performed, need [...] uprights, restart TF after OR Kathy Mendoza APRN-MYRNA 10/04/2024 6:58 PM T HARVESTER MACHINE OPERATOR Associated attestation - Bong Edmondson MD - 10/05/2024 6:12 PM 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 Patient seen and examined with the residents. [...] safe consumption of daily meals Outcome: Progressing T HARVESTER MACHINE OPERATOR * Tessa Gonzáles PA-C - 10/03/2024 8:27 [...] discussed with family and extubated patient to UT. 1-2 hours following extubation, patient required escalation to NRB and HFNC, thus re-intubated. Again doing well on vent per ABG and SPO2. Levo weaned to 0.01, precedex increased to 0.09 due to pt pulling at ETT and lines. Graham removed againovernight per nurse clinical research manager, however pt straight cathed x2 for [...] QDAY Luis Eugene MD 17 g at112/04/23 08 QUEtiapine (SEROquel) tablet 12.5 mg 12.5 mg Enteral Tube AT BEDTIME Tessa Gonzáles PA-C 12.5 mg at112/03/232044 sodium chloride (Inhalant) 7 % nebulizer solution [...] QDAY Thang Gaines, DO 1,000 Units at 10/03/24816 Review of Systems Unable to perform ROS: [...] TP fracture -Ospine consulted - AAT in [place] - uprights when able -Uprights performed, need [...] eval. Tessa Gonzáles PA-C 10/03/2024 8:28 AM T HARVESTER MACHINE OPERATOR Associated attestation - Yasmin Milligan MD - 10/03/2024 8:06 PM 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 I saw and evaluated the patient on the date of service. I discussed the plan of care with the resident. I reviewed all relevant labs, rads myself. Agree with note, except as documented here. Yasmin Milligan MD 10/03/2024 8:06 PM * Shandra Alvarado MAGICIAN HELPER - 10/02/2024 4:12 PM CST 10/02/24 1600 Missed Visit Missed Visit (sched conflict, with other discipline at time visit attempted) T HARVESTER MACHINE OPERATOR * Yasmin Milligan MD - 10/02/2024 12:53 PM CST Some intermittent shortness of breath, but same 4L NC compared to yest. Same interaction as yesterday per EROSION CONTROL COORDINATOR. CXR actually improved from 09/28. WBC improved although still elevated. Minimally working with PT. Still in restraints. Will increase to q2hr vitals with cont pulse ox. Will follow closely with serial exams. He is frail and elderly and at high risk of decompensation. Yasmin Milligan MD 10/02/2024 12:56 PM T HARVESTER MACHINE OPERATOR * Tessa Gonzáles PA-C - 10/02/2024 9:11 [...] discussed with family and extubated patient to UT. 1-2 hours following extubation, patient required escalation to NRB and HFNC, thus re-intubated. Again doing well on vent per ABG and SPO2. Levo weaned to 0.01, precedex increased to 0.09 due to pt pulling at ETT and lines. Graham removed againovernight per nurse clinical research manager, however pt straight cathed x2 for [...] Units 1,000 Units Enteral Tube QDAY Thang aGines, DO 1,000 Units at 10/01/24 1040 Review [...] 09/30/24 0125 POTASSIUM 4.4 5.1* 4.3 CO2 BUN 25 28* CREATININE 0.50* 0.45* 0.56* GLUCOSE [...] TP fracture -Ospine consulted - AAT in [place] - uprights when able -Uprights performed, need [...] weekend. Tessa Gonzáles PA-C 10/02/2024 9:12 AM T HARVESTER MACHINE OPERATOR Associated attestation - Yasmin Milligan MD - 10/03/2024 8:06 PM 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 I saw and evaluated the patient on [...] safe consumption of daily meals Outcome: Progressing T HARVESTER MACHINE OPERATOR * Kristen Gregory OT - 10/01/2024 4:03 PM CST [facility] Occupational Therapy Progress Note Patient: Lucian Sosa Med Record Number: [id number] Date of : 1940 Age: [age] year [...] bearing) Activity Level: Activity as Tolerated (in [place]) Spine Precautions: Yes Spine Precautions: [place] SUBJECTIVE: Subjective: (P) Patient agreeable to treatment [...] sit with moderate assist and X 2 Assisted Goal(s): Patient to discharge to appropriate next [...] light within reach, with family in room. T HARVESTER MACHINE OPERATOR * Charlene Milligan MSW - 10/01/2024 2:41 PM CST SW acknowledges PT OT recs for SNF. Pt not medically ready for SNF, SW will wait to send referrals when pt more appropriate. Charlene Munson [phone] T HARVESTER MACHINE OPERATOR * Jeanine Orozco, PT - 10/01/2024 1:51 PM CST [facility] Physical Therapy Progress Note Patient: Lucian Sosa Med Record Number: [id number] Date of : 1940 Age: [age] year [...] bearing) Activity Level: Activity as Tolerated (in [place]) Spine Precautions: Yes Spine Precautions: [place] OBJECTIVE: At start of therapy session, patient [...] EOB x10 minutes with fair sitting balance Display Fabrication Supervisor Goal(s): Patient to discharge to appropriate next [...] visible on white board, all lines/tubes intact. T HARVESTER MACHINE OPERATOR * Keegan Schmid, REGISTERED RESPIRATORY THERAPIST-LICENSING REPRESENTATIVE - 10/01/2024 12:48 PM CST GERIATRIC MEDICINE [...] , INR , APTT in the last 83406 hours. Cardiac markers: Recent Labs Component Name 09/30/24 1536 BNP 167* Microbiology: Light pseudamonda on 09/18 sputum cx Treated with Cefepime 09/20-09/27 Imaging: XR Scapula Left Result Date: 09/30/2024 IMPRESSION: Unchanged in alignment of superior scapular fracture. > Dictated by Manjula Bruno MD, (administrative resident). I, Pratima Haynes MD have personally reviewed [...] Schmid, ANP-, Geriatrics 10/01/2024 12:49 PM Pager: [phone] T HARVESTER MACHINE OPERATOR Associated attestation - Jose Knight MD - 10/02/2024 12:55 PM 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 I saw and examined the patient with [...] details. 10/01/2024 12:43 PM Francisco Gould MD T HARVESTER MACHINE OPERATOR * Orlando Grimes RN - 10/01/2024 12:18 PM CST Care Coordination Progress Note Expected Discharge Date: 10/04/2024 Discharge Plan: SNF recommended as the discharge plan. Patient is not medically ready at this time.CM will continue to follow Family Support (Name and Phone): Extended Emergency Contact Information Primary Emergency Contact: Anamaria Gomez Mobile Relation: Daughter Secondary Emergency Contact: Lilliam Campbell Relation: Grandchild Preferred language: [place] Dog Food Dough Mixer needed? No Transportation at Discharge: Family: READMISSION RISK SCORE is 16 at 12:18 PM 10/01/2024.: Name: Orlando Grimes RN T HARVESTER MACHINE OPERATOR * Torrey Cardona RN - 10/01/2024 12:04 [...] counseling services. [facility] or pastoral care. Denies SI or HI at this time. Patient has a PCP to follow up at discharged for further needs. Symptoms of depression and PTSD reviewed with the patient. Verbalized understanding. Trauma team aware. PTSD Resources for Discharge [facility] Adult & children psychiatry, telehealth appointments available, neuropsychological testing, therapy (couples therapy, individual, child & parent therapy) Https://[email or web address]/services [employer] ([phone]) Evidence-based therapy (individual, couples, family, play therapy, group therapy) Https://www.[employer]/specialties/trauma [facility] for [facility] ([phone]) CBT approach used to treat trauma- Highly effective, short-term therapy Https://www.[facility]/psychology/ctr/About%20the%20Center/clinic.html [facility] ([phone]) Individual, group, family, relationship counseling, EMDR treatment modality utilized, play therapy,substance use disorder treatment (Discounted Services for patients who qualify) [email or web address].php T HARVESTER MACHINE OPERATOR * Kd Lacey, CARLENE - 10/01/2024 11:00 AM CST [facility] Swallow Therapy Patient: Lucian Sosa Med Record Number: [id number] Date of : 1940 Age: [age] year [...] Impression - Pharyngeal: Severe Education/Interventions: While performing MAGICIAN HELPER, Patient was instructed in: results of swallow [...] oropharyngeal swallow function to warrant diet upgrade. Assisted Goal (s): Patient to be independent/baseline with functional mobility and self care and be able to safely discharge to prior level of care. Kd Munson M.A., CCC-MAGICIAN HELPER Speech Language Pathologist [phone] T HARVESTER MACHINE OPERATOR * Tessa Gonzáles PA-C - 10/01/2024 8:59 [...] 100mg TID. 09/24: Patient extubated yesterday to UT. Remains stable on 6L NC. Dobhoff placed [...] discussed with family and extubated patient to UT. 1-2 hours following extubation, patient required escalation to NRB and HFNC, thus re-intubated. Again doing well on vent per ABG and SPO2. Levo weaned to 0.01, precedex increased to 0.09 due to pt pulling at ETT and lines. Graham removed againovernight per nurse clinical research manager, however pt straight cathed x2 for [...] 25 mg Enteral Tube AT BEDTIME Kosta Corral, REGISTERED RESPIRATORY THERAPIST-LICENSING REPRESENTATIVE 25 mg at 09/30/242026 tamsulosin (Flomax) capsule 0.4 mg 0.4 mg Enteral Tube QDAY Thang Gaines, DO 0.4 mg at 09/30/24 0917 vitamin D3 (Cholecalciferol) 25 MCG (1000 UNITS) tablet 1,000 Units 1,000 Units Enteral Tube QDThang Srivastava, DO 1,000 Units at 09/30/24 0917 Review [...] ??C) I/O last 3 completed shifts: In: 1564 [Other:500] Out: 2139 [Urine:2074; Drains:65] Physical Exam [...] TP fracture -Ospine consulted - AAT in [place] - uprights when able L T4, T6 [...] weekend. Tessa Gonzáles PA-C 10/01/2024 9:00 AM T HARVESTER MACHINE OPERATOR Associated attestation - Francisco Gould MD - 10/11/2024 3:26 PM 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 This note was not complete at the [...] safe consumption of daily meals Outcome: Progressing T HARVESTER MACHINE OPERATOR * Kristen Gregory OT - 09/30/2024 3:38 PM CST [facility] Occupational Therapy Progress Note Patient: Lucian Sosa Med Record Number: [id number] Date of : 1940 Age: [age] year [...] BLE) Activity Level: Activity as Tolerated (in [place]) Spine Precautions: Yes Spine Precautions: [place] SUBJECTIVE: Subjective: (P) Patient agreeable to treatment session, difficulty maintaining arousal. Pain Assessment: Pain Assessment Pain Scale/Observation: (P) Behavioral Pain Odonh-Ygi-cyunqsspe Pain Rating Score #1: (P) 5 OBJECTIVE: [...] sit with moderate assist and X 2 Display Fabrication Supervisor Goal(s): Patient to discharge to appropriate next [...] with RN in room, all lines/tubes intact. T HARVESTER MACHINE OPERATOR * Francisco Gould MD - 09/30/2024 12:10 [...] embolized 09/30/2024 12:10 PM Francisco Gould MD T HARVESTER MACHINE OPERATOR * Kosta Corral, REGISTERED RESPIRATORY THERAPIST-LICENSING REPRESENTATIVE - 09/30/2024 11:53 AM CST Images from [...] 100mg TID. 09/24: Patient extubated yesterday to UT. Remains stable on 6L NC. Dobhoff placed [...] discussed with family and extubated patient to UT. 1-2 hours following extubation, patient required escalation to NRB and HFNC, thus re-intubated. Again doing well on vent per ABG and SPO2. Levo weaned to 0.01, precedex increased to 0.09 due to pt pulling at ETT and lines. Graham removed againovernight per nurse clinical research manager, however pt straight cathed x2 for [...] , INR , PTT in the last 62338 hours. Assessment/Plan: Neuro: GCS 11 Delirium Confusion [...] on Pivot 1.5 @ 45 ml/hr - MAGICIAN HELPER consulted Lumbar hernia, no acute intervention at [...] TP fracture Ospine consulted - AAT in [place] - uprights when able Skin: midlines avila open to air L thoracotomy avila - remove in 2-3 days Lines: PIV, ABI PT/OT/ST: SNF SW: for dispo needs DVT: LVX 30 mg BID Barrier to discharge: PT/OT for impaired ADLS On hi-flow nasal weaning down today Kosta Carol Corral APRN-LICENSING REPRESENTATIVE 09/30/2024 11:54 AM T HARVESTER MACHINE OPERATOR Associated attestation - Francisco Gould MD - 10/01/2024 12:43 PM 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 This note was not complete at the time of rounds. Please see my separate note from this date that links to this one. Thank you. * Yasmin Pantoja, MAGICIAN HELPER - 09/30/2024 11:10 AM CST [facility] Bedside Swallow Assessment Patient: Lucian Sosa Med Record Number: [id number] Date of : 1940 Age: [age] year [...] with continued TF's via his existing NG. MAGICIAN HELPER will continue to follow up for ongoing [...] Impression - Pharyngeal: Severe Education/Interventions: While performing MAGICIAN HELPER, Patient was instructed in: results of swallow [...] oropharyngeal swallow function to warrant diet upgrade. Assisted Goal (s): Patient to be independent/baseline with functional mobility and self care and be able to safely discharge to prior level of care. Plan: Continue NPO status, MAGICIAN HELPER will continue to follow up for ongoing assessment. Yasmin Arnett M.S., [facility]-MAGICIAN HELPER Speech Language Pathologist [phone] T HARVESTER MACHINE OPERATOR * Annie Ryder MD - 09/30/2024 8:17 AM CST Orthopaedic Trauma Surgery Daily Progress Note Name: Lucian Sosa Age: [age] year old Room: [facility] Date Admitted: 09/13/2024 Interval History: Patient seen [...] Name 09/30/24 0125 09/30/24 0034 09/29/24 0018 09/27/242334 NA 144 - 145 143 POTASSIUM 4.3 - 4.3 4.5 CL 107 - 107 110* CO2 28 - 29 27 BUN 28* - 24 22 CREATININE 0.56* - 0.56* 0.63* GLUCOSE 144* - 151* 95 CALCIUM 8.2* - 8.0* 8.4 MAGNESIUM 2.3 - 2.4 2.2 PHOS - 3.1 3.3 3.8 Coags No results for input(s): PT , INR , PTT in the last 69091 hours. Vitamin D Recent Labs Component Name 09/14/24 0013 [id number] 17.9* Vitals BP 152/49 (BP Location: Right [...] please contact Ortho Trauma APPs or send Lytro chat to PATRIC. For urgent questions, please page Ortho Trauma service pager through [employer]. To avoid delays in communication and patient care, please do not use [employer] Secure Chat. Patient will require follow up in the office with Dr. Roldan 2 week(s) after discharge. Ortho office staff to help arrange. Please notify Ortho Trauma PATRIC when patient is ready for discharge. Patient should have XR pelvis, left scapula at follow up. Contact information below: [facility] Office Schedulers: [phone], option 1 Annie Ryder MD 09/30/2024 8:18 AM T HARVESTER MACHINE OPERATOR Associated attestation - Marcella Roldan MD - 09/30/2024 8:41 AM 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 ATTENDING ADDENDUM: Patient discussed during rounds. I [...] injury from restraints Description: INTERVENTIONS: Outcome: Progressing T HARVESTER MACHINE OPERATOR * Liliana Johnson RN - 09/29/2024 2:08 PM CST Care Coordination Progress Note Expected Discharge Date: 10/04/2024 Discharge Plan: During MRD this morning, plan to wean HFNC. It Network Administrator working on rehab with family. Family Support (Name and Phone): Extended Emergency Contact Information Primary Emergency Contact: Anamaria Gomez Mobile Relation: Daughter Secondary Emergency Contact: Lilliam Campbell [place] Relation: Grandchild Preferred language: [place] Dog Food Dough Mixer needed? No Transportation at Discharge: Family: READMISSION RISK SCORE is 15 at 2:08 PM 09/29/2024.: Name: Liliana Johnson RN ext [phone] T HARVESTER MACHINE OPERATOR * Kendal Demarco MD - 09/29/2024 1:29 PM CST [facility] Trauma ICU Progress Note Admit: 09/13/2024 11:47 [...] discussed with family and extubated patient to UT. 1-2 hours following extubation, patient required escalation to NRB and HFNC, thus re-intubated. Again doing well on vent per ABG and SPO2. Levo weaned to 0.01, precedex increased to 0.09 due to pt pulling at ETT and lines. Graham removed againovernight per nurse clinical research manager, however pt straight cathed x2 for [...] 4.5 4.7* CL 107 110* 111* BUN 24 CREATININE 0.56* 0.63* 0.56* GLUCOSE 151* 95 [...] cefe to end 09/27 PT/OT: when able MAGICIAN HELPER: when able Weight Bearing Status: AAT in collar - NWB LUE, WBAT BLE w/ WW Disposition: Trauma ICU Trauma Attending: Dr. Nilam Grande PA-C Trauma ICU September 29, 2024 1:29 PM I have seen and examined the patient with the trauma ICU team, and I agree with the findings and plan of care as documented by Sotuh Grande PA-C Labs and imaging reviewed Weaning sedation and HFNC Ready for step down Date of service:09/29/24 Kendal Demarco MD 10/05/2024 9:49 AM T HARVESTER MACHINE OPERATOR * Pérez Frye MSW - 09/29/2024 10:03 [...] Contact: Lilliam Campbell Relation: Grandchild Preferred language: [place] Dog Food Dough Mixer needed? No Transportation at Discharge: Family: READMISSION RISK SCORE is 15 at 10:03 AM 09/29/2024.: Name: EASTON Mendoza T HARVESTER MACHINE OPERATOR * Kendal Demarco MD - 09/28/2024 4:26 PM CST [facility] Trauma ICU Progress Note Admit: 09/13/2024 11:47 [...] 100mg TID. 09/24: Patient extubated yesterday to UT. Remains stable on 6L NC. Dobhoff placed [...] discussed with family and extubated patient to UT. 1-2 hours following extubation, patient required escalation to NRB and HFNC, thus re-intubated. Again doing well on vent per ABG and SPO2. Levo weaned to 0.01, precedex increased to 0.09 due to pt pulling at ETT and lines. Graham removed againovernight per nurse clinical research manager, however pt straight cathed x2 for [...] cefe to end 09/27 PT/OT: when able MAGICIAN HELPER: when able Weight Bearing Status: AAT in [...] service:09/28/24 Kendal Demarco MD 10/01/2024 4:17 PM T HARVESTER MACHINE OPERATOR * Tesha Jimenez RD/NABOR - 09/28/2024 2:48 [...] wound to lower leg Estimated Needs: KCAL: 4731-3273 (20-25kcal/kg (ABW)) Protein (g): 110g (1.5g/kg (ABW)) [...] results for input(s): HGBA1C in the last 92570 hours.No data found. MEDICATIONS FOR CURRENT ENCOUNTER: [...] Progress: Continue with current goal [id number] T HARVESTER MACHINE OPERATOR * Nakul El MD - 09/28/2024 11:41 AM CST Orthopaedic Spine Surgery Plan of Care Note Lucian Sosa MRI cervical spine no longer indicated. Canceled after discussion with attending Upright cervical spine x-rays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 HEMATOLOGY ORDERABLES [facility] [address] [place] [address], [facility] [phone] * (ABNORMAL) BASIC METABOLIC PANEL (CALCIUM TOTAL) (10/01/2024 7:17 AM FRUIT HARVESTER MACHINE OPERATOR) BUN 25 7 - 26 mg/dL 10/01/2024 7:50 AM [facility] Creatinine 0.45(L) 0.71 - 1.16 mg/dL 10/01/2024 7:50 AM [facility] Sodium 145 136 - 145 mmol/L 10/01/2024 7:50 AM [facility] Potassium 5.1(H) 3.5 - 4.5 mmol/L 10/01/2024 7:50 AM [facility] Chloride 110(H) 98 - 107 mmol/L 10/01/2024 7:50 AM [facility] CO2 24 22 - 29 mmol/L 10/01/2024 7:50 AM [facility] Glucose 138(H) 70 - 99 mg/dL 10/01/2024 7:50 AM [facility] Calcium 8.5 8.4 - 10.2 mg/dL 10/01/2024 7:50 AM [facility] Anion Gap 11 6 - 16 10/01/2024 7:50 AM [facility] BUN/Creatinine Ratio >50(H) 7 - 23 10/01/2024 7:50 AM [facility] Osmolality Calculated 307(H) 275 - 295 mOsm/kg 10/01/2024 7:50 AM [facility] eGFR by CKD-EPI >90 >=90 mL/min/1.7 3 m2 10/01/2024 7:50 AM [facility] Blood BLOOD SPECIMEN / Unknown Lab Venipuncture / Unknown 10/01/2024 7:17 AM FRUIT HARVESTER MACHINE OPERATOR 10/01/2024 7:23 AM [facility] Gibran Grande PA-C LAB - CHEMISTRY O RDERABLES [facility] [address] [place] [address], [facility] [phone] * (ABNORMAL) B-TYPE NATRIURETIC PEPTIDE (09/30/2024 3:36 PM FRUIT HARVESTER MACHINE OPERATOR) BNP 167(H) <100 pg/mL 09/30/2024 4:32 PM [facility] Comment: A decision threshold of 100 [...] Unknown Venipuncture / Unknown 09/30/2024 3:36 PM FRUIT HARVESTER MACHINE OPERATOR 09/30/2024 3:57 PM FRUIT HARVESTER MACHINE OPERATOR Kosta Corral REGISTERED RESPIRATORY THERAPIST-LICENSING REPRESENTATIVE LAB - CHEMISTRY ORDERABLES Performing Organization Address [facility] Co de Phone Number [address] [address], [facility] [phone] * XR Chest 1Vw Portable (09/30/2024 12:09 PM FRUIT HARVESTER MACHINE OPERATOR) Anatomical Region Laterality Modality Chest Digital Radiogra phy 09/30/2024 1:06 PM FRUIT HARVESTER MACHINE OPERATOR Narrative 09/30/2024 1:14 PM FRUIT HARVESTER MACHINE OPERATOR EXAMINATION: XR CHEST 1VW PORTABLE DATE/TIME OF EXAM: ??09/30/2024 12:09 PM, LOCATION ??[facility] HISTORY: S22.43XA: Multiple fractures of ribs, bilateral, [...] obscured. Report dictated by Valerio Mckay DO, (Stock Speculator). Maryanne Casey MD have personally reviewed and interpreted this examination/study. > Interpreting Provider: Maryanne Horner MD on 09/30/2024 1:14 PM Procedure Note Maryanne Horner MD - 09/30/2024 EXAMINATION: XR CHEST 1VW PORTABLE DATE/TIME OF EXAM: 09/30/2024 12:09 PM, LOCATION [facility] HISTORY: S22.43XA: Multiple fractures of ribs, bilateral, [...] obscured. Report dictated by Valerio Mckay DO, (Stock Speculator). Maryanne Casey MD have personally reviewed and interpreted this examination/study. > Interpreting Provider: Maryanne Horner MD on 09/30/2024 1:14 PM Kosta Corral REGISTERED RESPIRATORY THERAPIST-LICENSING REPRESENTATIVE DIAGNOSTIC IMAG ING ORDERABLES * MAGNESIUM BLOOD (09/30/2024 1:25 AM FRUIT HARVESTER MACHINE OPERATOR) Magnesium 2.3 1.6 - 2.6 mg/dL 09/30/2024 2:10 AM FRUIT HARVESTER MACHINE OPERATOR [facility] Blood BLOOD SPECIMEN / Unknown Venipuncture / Unknown 09/30/2024 1:25 AM FRUIT HARVESTER MACHINE OPERATOR 09/30/2024 1:32 AM FRUIT HARVESTER MACHINE OPERATOR Gibran Grande PA-C LAB - CHEMISTRY O RDERABLES [facility] [address] [place] [address], [facility] [phone] * (ABNORMAL) BASIC METABOLIC PANEL (CALCIUM TOTAL) (09/30/2024 1:25 AM FRUIT HARVESTER MACHINE OPERATOR) BUN 28(H) 7 - 26 mg/dL 09/30/2024 2:10 AM [facility] Creatinine 0.56(L) 0.71 - 1.16 mg/dL 09/30/2024 2:10 AM [facility] Sodium 144 136 - 145 mmol/L 09/30/2024 2:10 AM [facility] Potassium 4.3 3.5 - 4.5 mmol/L 09/30/2024 2:10 AM [facility] Chloride 107 98 - 107 mmol/L 09/30/2024 2:10 AM [facility] CO2 28 22 - 29 mmol/L 09/30/2024 2:10 AM [facility] Glucose 144(H) 70 - 99 mg/dL 09/30/2024 2:10 AM [facility] Calcium 8.2(L) 8.4 - 10.2 mg/dL 09/30/2024 2:10 AM [facility] Anion Gap 9 6 - 16 09/30/2024 2:10 AM [facility] BUN/Creatinine Ratio 50(H) 7 - 23 09/30/2024 2:10 AM [facility] Osmolality Calculated 306(H) 275 - 295 mOsm/kg 09/30/2024 2:10 AM [facility] eGFR by CKD-EPI >90 >=90 mL/min/1.7 3 m2 09/30/2024 2:10 AM [facility] Blood BLOOD SPECIMEN / Unknown Venipuncture / Unknown 09/30/2024 1:25 AM FRUIT HARVESTER MACHINE OPERATOR 09/30/2024 1:32 AM [facility] Gibran Grande PA-C LAB - CHEMISTRY O RDERABLES [facility] [address] [place] [address], [facility] [phone] * PHOSPHORUS BLOOD (09/30/2024 12:34 AM FRUIT HARVESTER MACHINE OPERATOR) Phosphorus 3.1 2.8 - 5.1 mg/dL 09/30/2024 1:14 AM [facility] Blood BLOOD SPECIMEN / Unknown Venipuncture / Unknown 09/30/2024 12:34 AM FRUIT HARVESTER MACHINE OPERATOR 09/30/2024 12:40 AM FRUIT HARVESTER MACHINE OPERATOR Gibran Grande PA-C LAB - CHEMISTRY O RDERABLES [facility] [address] [place] [address], [facility] [phone] * (ABNORMAL) CBC W/O DIFFERENTIAL (09/30/2024 12:34 AM [facility]) Pathologist [facility] WBC 15.7(H) 4.0 - 10.7 x10E9/L 09/30/2024 1:26 AM [facility] RBC Count 2.79(L) 4.30 - 5.80 x10E12/L 09/30/2024 1:26 AM [facility] Hemoglobin 8.5(L) 13.3 - 17.5 g/dL 09/30/2024 1:26 AM [facility] Hematocrit 26.7(L) 38.7 - 51.1 % 09/30/2024 1:26 AM [facility] MCV 95.7 80.0 - 98.0 fL 09/30/2024 1:26 AM [facility] MCH 30.5 26.7 - 33.6 pg 09/30/2024 1:26 AM [facility] MCHC 31.8 31.7 - 36.3 g/dL 09/30/2024 1:26 AM [facility] RDW-CV 18.3(H) 11.3 - 14.8 % 09/30/2024 1:26 AM [facility] Platelet Count 09/30/2024 1:26 AM [facility] Comment:Platelets clumped on slide but appears adequate. Recommend repeat with a sodium citrate blue top tube. MPV 09/30/2024 1:26 AM [facility] Comment:Unable to report NRBC 0.5(H) <=0.0 /100 WBC 09/30/2024 1:26 AM FRUIT HARVESTER MACHINE OPERATOR [facility] Blood BLOOD SPECIMEN / Unknown Venipuncture / Unknown 09/30/2024 12:34 AM FRUIT HARVESTER MACHINE OPERATOR 09/30/2024 12:40 AM FRUIT HARVESTER MACHINE OPERATOR Gibran Grande PA-C LAB - HEMATOLOGY ORDERABLES Performing Organization Address [facility] Co de Phone Number [address] [address], [facility] [phone] * (ABNORMAL) CALCIUM IONIZED WHOLE BLOOD (09/30/2024 12:34 AM FRUIT HARVESTER MACHINE OPERATOR) Calcium Ionized 0.98 mmol/L 09/30/2024 12:41 AM [facility] pH 7.56(H) 7.35 - 7.45 pH 09/30/2024 12:41 AM [facility] Ionized Calcium pH Adjusted 1.05(L) 1.19 - 1.34 mmol/L 09/30/2024 12:41 AM [facility] Blood BLOOD SPECIMEN / Unknown Venipuncture / Unknown 09/30/2024 12:34 AM FRUIT HARVESTER MACHINE OPERATOR 09/30/2024 12:38 AM FRUIT HARVESTER MACHINE OPERATOR Gibran Grande PA-C LAB - CHEMISTRY O RDERABLES Performing Organization Address [facility] Co de Phone Number [address] [address], [facility] [phone] * XR Pelvis Judet Views (09/29/2024 5:00 PM FRUIT HARVESTER MACHINE OPERATOR) Anatomical Region Laterality Modality Pelvis Digital Radiogra phy 09/30/2024 9:51 AM FRUIT HARVESTER MACHINE OPERATOR Narrative 09/30/2024 11:26 AM FRUIT HARVESTER MACHINE OPERATOR PROCEDURE: ??XR PELVIS JUDET VIEWS, XR PELVIS AP W INLET OUTLET DATE/TIME OF EXAM: ??09/29/2024 5:45 PM CLINICAL INFORMATION: None relevant/not provided if blank. Indication: S32.9XXA: Closed displaced fracture of pelvis, unspecified part of pelvis, initial encounter ([facility]) Additional History: ADDITIONAL CLINICAL INFORMATION: Ordering Provider Reason For Exam: ??- B/L pubic root fx extending to anterior tab - L inferior pubic ramus - L Sacral ala fx (accession [id number]), - B/L pubic root fx extending to anterior tab (accession [id number]) COMPARISON: X-ray pelvis 09/21/2024. TECHNIQUE: AP and [...] intact. > Dictated by Manjula Bruno MD, (administrative resident). IPratima MD have personally reviewed and interpreted this examination/study. > Interpreting Provider: Pratima Haynes MD on 09/30/2024 11:26 AM Procedure Note Pratima Haynes MD - 09/30/2024 PROCEDURE: XR PELVIS JUDET VIEWS, XR PELVIS AP W INLET OUTLET DATE/TIME OF EXAM: 09/29/2024 5:45 PM CLINICAL INFORMATION: None relevant/not provided if blank. Indication: S32.9XXA: Closed displaced fracture of pelvis, unspecifiedpart of pelvis, initial encounter ([facility]) Additional History: ADDITIONAL CLINICAL INFORMATION: Ordering Provider Reason For Exam: - B/L pubic root fx extending to anterior tab - L inferior pubic ramus - L Sacral ala fx (accession [id number]), - B/L pubic root fx extending to anterior tab (accession [id number]) COMPARISON: X-ray pelvis 09/21/2024. TECHNIQUE: AP and [...] intact. > Dictated by Manjula Bruno MD, (administrative resident). Pratima Casey MD have personally reviewed and interpreted this examination/study. > Interpreting Provider: Pratima Haynes MD on 09/30/2024 11:26 AM Gabriela Perales PA-C DIAGNOSTIC IMAGING ORDERABLES * XR Pelvis AP W Inlet Outlet (09/29/2024 5:00 PM FRUIT HARVESTER MACHINE OPERATOR) Anatomical Region Laterality Modality Pelvis Digital Radiogra phy 09/30/2024 9:51 AM FRUIT HARVESTER MACHINE OPERATOR Narrative 09/30/2024 11:26 AM FRUIT HARVESTER MACHINE OPERATOR PROCEDURE: ??XR PELVIS JUDET VIEWS, XR PELVIS AP W INLET OUTLET DATE/TIME OF EXAM: ??09/29/2024 5:45 PM CLINICAL INFORMATION: None relevant/not provided if blank. Indication: S32.9XXA: Closed displaced fracture of pelvis, unspecified part of pelvis, initial encounter ([facility]) Additional History: ADDITIONAL CLINICAL INFORMATION: Ordering Provider Reason For Exam: ??- B/L pubic root fx extending to anterior tab - L inferior pubic ramus - L Sacral ala fx (accession [id number]), - B/L pubic root fx extending to anterior tab (accession [id number]) COMPARISON: X-ray pelvis 09/21/2024. TECHNIQUE: AP and [...] intact. > Dictated by Manjula Bruno MD, (administrative resident). Pratima Casey MD have personally reviewed and interpreted this examination/study. > Interpreting Provider: Pratima Haynes MD on 09/30/2024 11:26 AM Procedure Note Pratima Haynes MD - 09/30/2024 PROCEDURE: XR PELVIS JUDET VIEWS, XR PELVIS AP W INLET OUTLET DATE/TIME OF EXAM: 09/29/2024 5:45 PM CLINICAL INFORMATION: None relevant/not provided if blank. Indication: S32.9XXA: Closed displaced fracture of pelvis, unspecifiedpart of pelvis, initial encounter ([facility]) Additional History: ADDITIONAL CLINICAL INFORMATION: Ordering Provider Reason For Exam: - B/L pubic root fx extending to anterior tab - L inferior pubic ramus - L Sacral ala fx (accession [id number]), - B/L pubic root fx extending to anterior tab (accession [id number]) COMPARISON: X-ray pelvis 09/21/2024. TECHNIQUE: AP and [...] intact. > Dictated by Manjula Bruno MD, (administrative resident). Pratima Casey MD have personally reviewed and interpreted this examination/study. > Interpreting Provider: Pratima Haynes MD on 09/30/2024 11:26 AM Gabriela Perales PA-C DIAGNOSTIC IMAGING ORDERABLES * XR Scapula Left (09/29/2024 5:00 PM FRUIT HARVESTER MACHINE OPERATOR) Anatomical Region Laterality Modality Upper Extremity Digital Radiogra phy 09/30/2024 10:0 4 AM FRUIT HARVESTER MACHINE OPERATOR Impressions 09/30/2024 11:47 AM FRUIT HARVESTER MACHINE OPERATOR IMPRESSION: Unchanged in alignment of superior scapular fracture. > Dictated by Manjula Bruno MD, (administrative resident). Pratima Casey MD have personally reviewed and interpreted this examination/study. > Interpreting Provider: Pratima Haynes MD on 09/30/2024 11:47 AM Narrative 09/30/2024 11:47 AM FRUIT HARVESTER MACHINE OPERATOR PROCEDURE: ??XR SCAPULA LEFT DATE/TIME OF [...] fracture. > Dictated by Manjula Bruno MD, (administrative resident). I, Pratima Haynes MD have personally reviewed and interpreted this examination/study. > Interpreting Provider: Pratima Haynes MD on 09/30/2024 11:47 AM Gabriela Perales PA-C DIAGNOSTIC IMAGING ORDERABLES * XR Chest 1Vw Portable (09/29/2024 4:29 AM FRUIT HARVESTER MACHINE OPERATOR) Anatomical Region Laterality Modality Chest Digital Radiogra phy 09/29/2024 9:33 AM FRUIT HARVESTER MACHINE OPERATOR Narrative 09/29/2024 11:33 PM FRUIT HARVESTER MACHINE OPERATOR EXAMINATION: XR CHEST 1VW PORTABLE DATE/TIME OF EXAM: ??09/29/2024 4:29 AM, LOCATION ??[facility] HISTORY: S22.43XA: Multiple fractures of ribs, bilateral, [...] obscured. Report dictated by Valerio Mckay DO, (Stock Speculator). Layo Casey MD have personally reviewed and interpreted this examination/study. > Interpreting Provider: Layo Adhikari MD on 09/29/2024 11:33 PM Procedure Note Layo Adhikari MD - 09/29/2024 EXAMINATION: XR CHEST 1VW PORTABLE DATE/TIME OF EXAM: 09/29/2024 4:29 AM, LOCATION [facility] HISTORY: S22.43XA: Multiple fractures of ribs, bilateral, [...] obscured. Report dictated by Valerio Mckay DO, (Stock Speculator). Layo Casey MD have personally reviewed and interpreted this examination/study. > Interpreting Provider: Layo Adhikari MD on 09/29/2024 11:33 PM Kendal Demarco MD DIAGNOSTIC IMAGING O RDERABLES * PHOSPHORUS BLOOD (09/29/2024 12:18 AM FRUIT HARVESTER MACHINE OPERATOR) Phosphorus 3.3 2.8 - 5.1 mg/dL 09/29/2024 1:00 AM FRUIT HARVESTER MACHINE OPERATOR [facility] Blood BLOOD SPECIMEN / Unknown Venipuncture / Unknown 09/29/2024 12:18 AM FRUIT HARVESTER MACHINE OPERATOR 09/29/2024 12:32 AM FRUIT HARVESTER MACHINE OPERATOR Gibran Grande PA-C LAB - CHEMISTRY O RDERABLES Performing Organization Address City/[facility]/ZIP Co de Phone Number [facility] [address] [place] [phone], [facility] [phone] * MAGNESIUM BLOOD (09/29/2024 12:18 AM FRUIT HARVESTER MACHINE OPERATOR) Magnesium 2.4 1.6 - 2.6 mg/dL 09/29/2024 1:00 AM [facility] Blood BLOOD SPECIMEN / Unknown Venipuncture / Unknown 09/29/2024 12:18 AM FRUIT HARVESTER MACHINE OPERATOR 09/29/2024 12:32 AM FRUIT HARVESTER MACHINE OPERATOR Gibran Grande PA-C LAB - CHEMISTRY O RDERABLES Performing Organization Address City/[facility]/ZIP Co de Phone Number [facility] [address] [place] [phone], [facility] [phone] * (ABNORMAL) CBC W/O DIFFERENTIAL (09/29/2024 12:18 AM FRUIT HARVESTER MACHINE OPERATOR) WBC 21.0(H) 4.0 - 10.7 x10E9/L 09/29/2024 1:46 AM [facility] RBC Count 2.80(L) 4.30 - 5.80 x10E12/L 09/29/2024 1:46 AM [facility] Hemoglobin 8.5(L) 13.3 - 17.5 g/dL 09/29/2024 1:46 AM [facility] Hematocrit 27.3(L) 38.7 - 51.1 % 09/29/2024 1:46 AM [facility] MCV 97.5 80.0 - 98.0 fL 09/29/2024 1:46 AM [facility] MCH 30.4 26.7 - 33.6 pg 09/29/2024 1:46 AM [facility] MCHC 31.1(L) 31.7 - 36.3 g/dL 09/29/2024 1:46 AM [facility] RDW-CV 17.7(H) 11.3 - 14.8 % 09/29/2024 1:46 AM [facility] Platelet Count 1,318(HH) 150 - 420 x10E9/L 09/29/2024 1:46 AM [facility] MPV 10.0 7.8 - 11.4 fL 09/29/2024 1:46 AM [facility] NRBC 0.5(H) <=0.0 /100 WBC 09/29/2024 1:46 AM [facility] Blood BLOOD SPECIMEN / Unknown Venipuncture / Unknown 09/29/2024 12:18 AM FRUIT HARVESTER MACHINE OPERATOR 09/29/2024 12:32 AM FRUIT HARVESTER MACHINE OPERATOR Gibran Grande PA-C LAB - HEMATOLOGY ORDERABLES Performing Organization Address [facility]/ZIP Co de Phone Number [address] [address], [place] [phone] * (ABNORMAL) CALCIUM IONIZED WHOLE BLOOD (09/29/2024 12:18 AM FRUIT HARVESTER MACHINE OPERATOR) Calcium Ionized 1.15 mmol/L 09/29/2024 12:47 AM [facility] pH 7.40 7.35 - 7.45 pH 09/29/2024 12:47 AM [facility] Ionized Calcium pH Adjusted 1.15(L) 1.19 - 1.34 mmol/L 09/29/2024 12:47 AM [facility] Blood BLOOD SPECIMEN / Unknown Venipuncture / Unknown 09/29/2024 12:18 AM FRUIT HARVESTER MACHINE OPERATOR 09/29/2024 12:28 AM FRUIT HARVESTER MACHINE OPERATOR Gibran Grande PA-C LAB - CHEMISTRY O RDERABLES Performing Organization Address City/[facility]/ZIP Co de Phone Number [address] [address], [place] [phone] * (ABNORMAL) BASIC METABOLIC PANEL (CALCIUM TOTAL) (09/29/2024 12:18 AM [facility]) BUN 24 7 - 26 mg/dL 09/29/2024 1:00 AM [facility] Creatinine 0.56(L) 0.71 - 1.16 mg/dL 09/29/2024 1:00 AM [facility] Sodium 145 136 - 145 mmol/L 09/29/2024 1:00 AM [facility] Potassium 4.3 3.5 - 4.5 mmol/L 09/29/2024 1:00 AM [facility] Chloride 107 98 - 107 mmol/L 09/29/2024 1:00 AM [facility] CO2 29 22 - 29 mmol/L 09/29/2024 1:00 AM [facility] Glucose 151(H) 70 - 99 mg/dL 09/29/2024 1:00 AM [facility] Calcium 8.0(L) 8.4 - 10.2 mg/dL 09/29/2024 1:00 AM [facility] Anion Gap 9 6 - 16 09/29/2024 1:00 AM [facility] BUN/Creatinine Ratio 43(H) 7 - 23 09/29/2024 1:00 AM [facility] Osmolality Calculated 307(H) 275 - 295 mOsm/kg 09/29/2024 1:00 AM [facility] eGFR by CKD-EPI >90 >=90 mL/min/1.7 3 m2 09/29/2024 1:00 AM [facility] Blood BLOOD SPECIMEN / Unknown Venipuncture / Unknown 09/29/2024 12:18 AM FRUIT HARVESTER MACHINE OPERATOR 09/29/2024 12:32 AM FRUIT HARVESTER MACHINE OPERATOR Gibran Grande PA-C LAB - CHEMISTRY O RDERABLES [facility] [address] [place] [address], [facility] [phone] * XR Chest 1Vw Portable (09/28/2024 5:46 AM FRUIT HARVESTER MACHINE OPERATOR) Anatomical Region Laterality Modality Chest Digital Radiogra phy 09/28/2024 8:58 AM FRUIT HARVESTER MACHINE OPERATOR Narrative 09/28/2024 3:45 PM FRUIT HARVESTER MACHINE OPERATOR PROCEDURE: ??XR CHEST 1VW PORTABLE, DATE/TIME OF EXAM: ??09/28/2024 5:46 AM, LOCATION ??[facility] INDICATION: Z97.8: Endotracheal tube present ADDITIONAL CLINICAL [...] obscured. Report dictated by Alex Huizar MD, (Stock Speculator). Maryanne Casey MD have personally reviewed and interpreted this examination/study. > Interpreting Provider: Maryanne Horner MD on 09/28/2024 3:45 PM Procedure Note Maryanne Horner MD - 09/28/2024 PROCEDURE: XR CHEST 1VW PORTABLE, DATE/TIME OF EXAM: 09/28/2024 5:46AM, LOCATION [facility] INDICATION: Z97.8: Endotracheal tube present ADDITIONAL CLINICAL [...] obscured. Report dictated by Alex Huizar MD, (Stock Speculator). Maryanne Casey MD have personally reviewed and interpreted this examination/study. > Interpreting Provider: Maryanne Horner MD on 09/28/2024 3:45 PM Kendal Demarco MD DIAGNOSTIC IMAGING O RDERABLES * PHOSPHORUS BLOOD (09/27/2024 11:35 PM FRUIT HARVESTER MACHINE OPERATOR) Phosphorus 3.8 2.8 - 5.1 mg/dL 09/28/2024 12:13 AM FRUIT HARVESTER MACHINE OPERATOR [facility] Blood BLOOD SPECIMEN / Unknown Venipuncture / Unknown 09/27/2024 11:35 PM FRUIT HARVESTER MACHINE OPERATOR 09/27/2024 11:48 PM FRUIT HARVESTER MACHINE OPERATOR Gibran Grande PA-C LAB - CHEMISTRY O RDERAFRANCISCO [address] [address], [facility] [phone] * MAGNESIUM BLOOD (09/27/2024 11:35 PM FRUIT HARVESTER MACHINE OPERATOR) Magnesium 2.2 1.6 - 2.6 mg/dL 09/28/2024 12:13 AM FRUIT HARVESTER MACHINE OPERATOR [facility] Blood BLOOD SPECIMEN / Unknown Venipuncture / Unknown 09/27/2024 11:35 PM FRUIT HARVESTER MACHINE OPERATOR 09/27/2024 11:48 PM FRUIT HARVESTER MACHINE OPERATOR Gibran Grande PA-C LAB - CHEMISTRY O RDERAFRANCISCO [address] [address], [place] [phone] * (ABNORMAL) CBC W/O DIFFERENTIAL (09/27/2024 11:35 PM FRUIT HARVESTER MACHINE OPERATOR) WBC 22.2(H) 4.0 - 10.7 x10E9/L 09/28/2024 12:05 AM [facility] RBC Count 2.85(L) 4.30 - 5.80 x10E12/L 09/28/2024 12:05 AM [facility] Hemoglobin 8.8(L) 13.3 - 17.5 g/dL 09/28/2024 12:05 AM [facility] Hematocrit 27.6(L) 38.7 - 51.1 % 09/28/2024 12:05 AM [facility] MCV 96.8 80.0 - 98.0 fL 09/28/2024 12:05 AM [facility] MCH 30.9 26.7 - 33.6 pg 09/28/2024 12:05 AM [facility] MCHC 31.9 31.7 - 36.3 g/dL 09/28/2024 12:05 AM [facility] RDW-CV 18.2(H) 11.3 - 14.8 % 09/28/2024 12:05 AM [facility] Platelet Count 1,328(HH) 150 - 420 x10E9/L 09/28/2024 12:05 AM [facility] MPV 9.9 7.8 - 11.4 fL 09/28/2024 12:05 AM [facility] NRBC 0.8(H) <=0.0 /100 WBC 09/28/2024 12:05 AM [facility] Blood BLOOD SPECIMEN / Unknown Venipuncture / Unknown 09/27/2024 11:35 PM FRUIT HARVESTER MACHINE OPERATOR 09/27/2024 11:48 PM FRUIT HARVESTER MACHINE OPERATOR Gibran Grande PA-C LAB - HEMATOLOGY ORDERABLES [facility] [address] [place] [address], [facility] [phone] * (ABNORMAL) CALCIUM IONIZED WHOLE BLOOD (09/27/2024 11:35 PM FRUIT HARVESTER MACHINE OPERATOR) Pathologist [facility] Calcium Ionized 1.17 mmol/L 09/27/2024 11:50 PM [facility] pH 7.42 7.35 - 7.45 pH 09/27/2024 11:50 PM [facility] Ionized Calcium pH Adjusted 1.18(L) 1.19 - 1.34 mmol/L 09/27/2024 11:50 PM [facility] Blood BLOOD SPECIMEN / Unknown Venipuncture / Unknown 09/27/2024 11:35 PM FRUIT HARVESTER MACHINE OPERATOR 09/27/2024 11:47 PM FRUIT HARVESTER MACHINE OPERATOR Gibran Grande PA-C LAB - CHEMISTRY O RINA Performing Organization Address City/[facility] Co de Phone Number [facility] [address] [place] [address], [facility] [phone] * (ABNORMAL) BASIC METABOLIC PANEL (CALCIUM TOTAL) (09/27/2024 11:35 PM FRUIT HARVESTER MACHINE OPERATOR) BUN 22 7 - 26 mg/dL 09/28/2024 12:13 AM [facility] Creatinine 0.63(L) 0.71 - 1.16 mg/dL 09/28/2024 12:13 AM [facility] Sodium 143 136 - 145 mmol/L 09/28/2024 12:13 AM [facility] Potassium 4.5 3.5 - 4.5 mmol/L 09/28/2024 12:13 AM [facility] Chloride 110(H) 98 - 107 mmol/L 09/28/2024 12:13 AM [facility] CO2 27 22 - 29 mmol/L 09/28/2024 12:13 AM [facility] Glucose 95 70 - 99 mg/dL 09/28/2024 12:13 AM [facility] Calcium 8.4 8.4 - 10.2 mg/dL 09/28/2024 12:13 AM [facility] Anion Gap 6 6 - 16 09/28/2024 12:13 AM [facility] BUN/Creatinine Ratio 35(H) 7 - 23 09/28/2024 12:13 AM [facility] Osmolality Calculated 299(H) 275 - 295 mOsm/kg 09/28/2024 12:13 AM [facility] eGFR by CKD-EPI >90 >=90 mL/min/1.7 3 m2 09/28/2024 12:13 AM [facility] Blood BLOOD SPECIMEN / Unknown Venipuncture / Unknown 09/27/2024 11:35 PM FRUIT HARVESTER MACHINE OPERATOR 09/27/2024 11:48 PM FRUIT HARVESTER MACHINE OPERATOR Gibran Grande PA-C LAB - CHEMISTRY O RDERABLES Performing Organization Address [facility]/State/ZIP Co de Phone Number [facility] [address] [place] [address], [facility] [phone] * EKG 12-LEAD (09/27/2024 8:49 AM FRUIT HARVESTER MACHINE OPERATOR) Ventricular Rate 148 BPM [facility] MUSE Atrial Rate 296 BPM [facility] QRS Duration ms 78 ms [facility] MUSE Q-T Interval ms 334 ms [facility] MUSE QTC Calculation (Bezet) 524 ms [facility] MUSE Calculated P [place] 103 degrees [facility] MUSE Calculated R [place] -33 degrees [facility] MUSE Calculated T [place] 118 degrees [facility] MUSE Interpretation EKG ATRIAL FLUTTER WITH 2:1 A-V CONDUCTION LEFT AXIS DEVIATION NONSPECIFIC ST AND T WAVE ABNORMALITY ABNORMAL ECG WHEN COMPARED WITH ECG OF 25-SEP-2024 16:26, atrial flutter has replaced sinus rhythm Confirmed by MAGALY CHE DO ([id number]) on 09/28/2024 3:21:12 PM [facility] MUSE 09/27/2024 8:49 AM FRUIT HARVESTER MACHINE OPERATOR 09/28/2024 3:21 PM FRUIT HARVESTER MACHINE OPERATOR Kendal Demarco MD ECG ORDERABLES Performing Organization Address [facility] Co de Phone Number [facility] AIMEE * (ABNORMAL) BLOOD GASES ART + COOX PANEL (09/27/2024 6:21 AM FRUIT HARVESTER MACHINE OPERATOR) pH Arterial 7.45 7.35 - 7.45 pH 09/27/2024 6:31 AM [facility] pO2 Arterial 73(L) 80 - 100 mmHg 09/27/2024 6:31 AM [facility] pCO2 Arterial 39 35 - 45 mmHg 6:31 AM [facility] HCO3 Arterial 27.1 20.0 - 30.0 mmol/L 09/27/2024 6:31 AM [facility] BE Arterial 2.9(H) -2.0 - 2.0 mmol/L 09/27/2024 6:31 AM [facility] Oxyhemoglobin Arterial 94.1 % 09/27/2024 6:31 AM [facility] Dexoyhemoglobin (HHB) % 2.9 % 09/27/2024 6:31 AM [facility] Methemoglobin 1.4 0.0 - 2.0 % 09/27/2024 6:31 AM [facility] Carboxyhemoglobin 1.6 0.0 - 2.0 % 2023 6:31 AM [facility] O2 Content Arterial 12.3 Interpret within clinical context ml/dL 09/27/2024 6:31 AM [facility] Hemoglobin by COOX 9.2(L) 12.0 - 17.6 g/dL 09/27/2024 6:31 AM [facility] O2 Saturation Arterial 97 90 - 100 % 09/27/2024 6:31 AM [facility] FI O2 Arterial 90.0 % 09/27/2024 6:31 AM [facility] Blood, arterial ARTERIAL BLOOD SPECIMEN / Unknown Arterial Puncture / Unknown 09/27/2024 6:21 AM FRUIT HARVESTER MACHINE OPERATOR 09/27/2024 6:29 AM [facility] Narrative [facility] - 09/27/2024 6:31 AM FRUIT HARVESTER MACHINE OPERATOR Carboxyhemoglobin Normal Concentration: Non-smokers: 0-2%; Smokers: 0-9%; Toxic: >20% Kendal Demarco MD LAB - BLOOD GASES OR DERABLES [address] [address], [facility] [phone] * PHOSPHORUS BLOOD (09/27/2024 12:18 AM FRUIT HARVESTER MACHINE OPERATOR) Phosphorus 2.9 2.8 - 5.1 mg/dL 09/27/2024 12:56 AM [facility] Blood BLOOD SPECIMEN / Unknown Venipuncture / Unknown 09/27/2024 12:18 AM FRUIT HARVESTER MACHINE OPERATOR 09/27/2024 12:30 AM FRUIT HARVESTER MACHINE OPERATOR Gibran Grande PA-C LAB - CHEMISTRY O RDERABLES Performing Organization Address City/[facility]/ZIP Co de Phone Number [address] [address], [place] [phone] * MAGNESIUM BLOOD (09/27/2024 12:18 AM FRUIT HARVESTER MACHINE OPERATOR)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 Unknown Venipuncture / Unknown 09/18/2024 12:30 AM FRUIT HARVESTER MACHINE OPERATOR 09/18/2024 12:38 AM FRUIT HARVESTER MACHINE OPERATOR Gibran Grande PA-C LAB - CHEMISTRY O RDERABLES [facility] [address] [place] [address], [facility] [phone] * MAGNESIUM BLOOD (09/18/2024 12:30 AM FRUIT HARVESTER MACHINE OPERATOR) Magnesium 2.1 1.6 - 2.6 mg/dL 09/18/2024 1:01 AM [facility] Blood BLOOD SPECIMEN / Unknown Venipuncture / Unknown 09/18/2024 12:30 AM FRUIT HARVESTER MACHINE OPERATOR 09/18/2024 12:38 AM FRUIT HARVESTER MACHINE OPERATOR Gibran Grande PA-C LAB - CHEMISTRY O RDERABLES [facility] [address] [place] [address], [facility] [phone] * (ABNORMAL) CBC W/O DIFFERENTIAL (09/18/2024 12:30 AM FRUIT HARVESTER MACHINE OPERATOR) WBC 12.5(H) 4.0 - 10.7 x10E9/L 09/18/2024 12:41 AM [facility] RBC Count 2.56(L) 4.30 - 5.80 x10E12/L 09/18/2024 12:41 AM [facility] Hemoglobin 7.9(L) 13.3 - 17.5 g/dL 09/18/2024 12:41 AM [facility] Hematocrit 22.9(L) 38.7 - 51.1 % 09/18/2024 12:41 AM [facility] MCV 89.5 80.0 - 98.0 fL 09/18/2024 12:41 AM [facility] MCH 30.9 26.7 - 33.6 pg 09/18/2024 12:41 AM [facility] MCHC 34.5 31.7 - 36.3 g/dL 09/18/2024 12:41 AM [facility] RDW-CV 16.2(H) 11.3 - 14.8 % 09/18/2024 12:41 AM [facility] Platelet Count 185 150 - 420 x10E9/L 09/18/2024 12:41 AM [facility] MPV 10.4 7.8 - 11.4 fL 09/18/2024 12:41 AM [facility] NRBC 0.6(H) <=0.0 /100 WBC 09/18/2024 12:41 AM [facility] Blood BLOOD SPECIMEN / Unknown Venipuncture / Unknown 09/18/2024 12:30 AM FRUIT HARVESTER MACHINE OPERATOR 09/18/2024 12:37 AM FRUIT HARVESTER MACHINE OPERATOR Gibran Grande PA-C LAB - HEMATOLOGY ORDERABLES Performing Organization Address City/[facility]/ZIP Co de Phone Number [facility] [address] [place] [address], [place] [phone] * (ABNORMAL) CALCIUM IONIZED WHOLE BLOOD (09/18/2024 12:30 AM FRUIT HARVE[employer] MACHINE OPERATOR) Calcium Ionized 1.12 mmol/L 09/18/2024 12:47 AM [facility] pH 7.42 7.35 - 7.45 pH 09/18/2024 12:47 AM [facility] Ionized Calcium pH Adjusted 1.13(L) 1.19 - 1.34 mmol/L 09/18/2024 12:47 AM [facility] Blood BLOOD SPECIMEN / Unknown Venipuncture / Unknown 09/18/2024 12:30 AM FRUIT HARVESTER MACHINE OPERATOR 09/18/2024 12:34 AM FRUIT HARVESTER MACHINE OPERATOR Gibran Grande PA-C LAB - CHEMISTRY O RDERABLES [facility] [address] [place] [phone], [place] [phone] * (ABNORMAL) BLOOD GASES ART + COOX PANEL (09/18/2024 12:30 AM FRUIT HARVESTER MACHINE OPERATOR) pH Arterial 7.42 7.35 - 7.45 pH 09/18/2024 12:47 AM [facility] pO2 Arterial 78(L) 80 - 100 mmHg 09/18/2024 12:47 AM [facility] pCO2 Arterial 38 35 - 45 mmHg 12:47 AM [facility] HCO3 Arterial 24.6 20.0 - 30.0 mmol/L 09/18/2024 12:47 AM [facility] BE Arterial 0.2 -2.0 - 2.0 mmol/L 09/18/2024 12:47 AM [facility] Oxyhemoglobin Arterial 96.1 % 09/18/2024 12:47 AM [facility] Dexoyhemoglobin (HHB) % 1.4 % 09/18/2024 12:47 AM [facility] Methemoglobin <0.8 0.0 - 2.0 % 09/18/2024 12:47 AM [facility] Carboxyhemoglobin 1.8 0.0 - 2.0 % 2023 12:47 AM [facility] O2 Content Arterial 10.9 Interpret within clinical context ml/dL 09/18/2024 12:47 AM [facility] Hemoglobin by COOX 8.0(L) 12.0 - 17.6 g/dL 09/18/2024 12:47 AM [facility] O2 Saturation Arterial 99 90 - 100 % 09/18/2024 12:47 AM [facility] FI O2 Arterial 35.0 % 09/18/2024 12:47 AM [facility] Blood, arterial ARTERIAL BLOOD SPECIMEN / Unknown Arterial Puncture / Unknown 09/18/2024 12:30 AM [facility] 09/18/2024 12:34 AM [facility] - 09/18/2024 12:47 AM [facility] Carboxyhemoglobin Normal Concentration: Non-smokers: 0-2%; Smokers: 0-9%; Toxic: >20% Gibran Grande PA-C LAB - BLOOD GASES ORDERABLES [facility] [address] [place] [address], [facility] [phone] * (ABNORMAL) BASIC METABOLIC PANEL (CALCIUM TOTAL) (09/18/2024 12:30 AM [facility]) BUN 19 7 - 26 mg/dL 09/18/2024 1:01 AM [facility] Creatinine 0.69(L) 0.71 - 1.16 mg/dL 09/18/2024 1:01 AM [facility] Sodium 141 136 - 145 mmol/L 09/18/2024 1:01 AM [facility] Potassium 4.4 3.5 - 4.5 mmol/L 09/18/2024 1:01 AM [facility] Chloride 107 98 - 107 mmol/L 09/18/2024 1:01 AM [facility] CO2 23 22 - 29 mmol/L 09/18/2024 1:01 AM [facility] Glucose 139(H) 70 - 99 mg/dL 09/18/2024 1:01 AM [facility] Calcium 7.6(L) 8.4 - 10.2 mg/dL 09/18/2024 1:01 AM [facility] Anion Gap 11 6 - 16 09/18/2024 1:01 AM [facility] BUN/Creatinine Ratio 28(H) 7 - 23 09/18/2024 1:01 AM [facility] Osmolality Calculated 297(H) 275 - 295 mOsm/kg 09/18/2024 1:01 AM [facility] eGFR by CKD-EPI >90 >=90 mL/min/1.7 3 m2 09/18/2024 1:01 AM [facility] Blood BLOOD SPECIMEN / Unknown Venipuncture / Unknown 09/18/2024 12:30 AM FRUIT HARVESTER MACHINE OPERATOR 09/18/2024 12:38 AM [facility] Gibran Grande PA-C LAB - CHEMISTRY O RDERABLES [facility] [address] [place] [address], [facility] [phone] * (ABNORMAL) CULTURE SPUTUM+GRAM STAIN (09/18/2024 12:22 AM FRUIT HARVESTER MACHINE OPERATOR) Culture Light Pseudomonas aeruginosa(A) DAGMAR 09/20/2024 10:57 PM FRUIT HARVESTER MACHINE OPERATOR [facility] Gram Stain <10 per low power field Squamous epithelial cells 09/20/2024 10:57 PM FRUIT HARVESTER MACHINE OPERATOR [facility] Gram Stain >= 25 per low power field Polymorphonuclear cells 09/20/2024 10:57 PM FRUIT HARVESTER MACHINE OPERATOR [facility] Gram Stain Light Gram-negative bacilli 09/20/2024 10:57 PM FRUIT HARVESTER MACHINE OPERATOR [facility] Microbiology SPECIMEN FROM ENDOTRACHEAL TUBE / Unknown Collection / Unknown 09/18/2024 12:22 AM FRUIT HARVESTER MACHINE OPERATOR 09/18/2024 12:27 AM FRUIT HARVESTER MACHINE OPERATOR Narrative Organism Antibiotic Method Susceptibility Pseudomonas aeruginosa Cefepime DAGMAR 2 ug/mL: Susceptible Pseudomonas aeruginosa Ceftazidime DAGMAR 2 ug/mL: Susceptible Pseudomonas aeruginosa Ciprofloxacin DAGMAR <=0.25 ug/mL: Susceptible Pseudomonas aeruginosa Gentamicin DAGMAR Resistant Pseudomonas aeruginosa Meropenem DAGMAR 1 ug/mL: Susceptible Pseudomonas aeruginosa Piperacillin-tazobactam DAGMAR 8 ug/mL: Susceptible Pseudomonas aeruginosa Tobramycin DAGMAR <=1 ug/mL: Susceptible Kendal Demarco MD LAB - MICROBIOLOGY O RDERABLES [facility] [address] [place] [address], [facility] [phone] * VAS Right Arterial Duplex Le (09/17/2024 10:46 AM FRUIT HARVESTER MACHINE OPERATOR) Anatomical Region Laterality Modality Lower Extremity Intravascular Ul trasound 09/17/2024 10:1 3 AM FRUIT HARVESTER MACHINE OPERATOR Narrative Procedure Note Keegan Juarez MD - 09/17/2024 Kendal Demarco MD VASCULAR LAB ORDERAB LES * XR Chest 1Vw Portable (09/17/2024 4:34 AM FRUIT HARVESTER MACHINE OPERATOR) Anatomical Region Laterality Modality Chest Digital Radiogra phy 09/17/2024 4:20 PM FRUIT HARVESTER MACHINE OPERATOR Impressions 09/17/2024 4:21 PM FRUIT HARVESTER MACHINE OPERATOR IMPRESSION: *Stable endotracheal tube, partially imaged enteric tube, left subclavian approach central venous catheter, left apical and basilar oriented thoracostomy tubes, left upper quadrant drain, and multiple left rib plating. Stable partially obscured cardiomediastinal silhouette. Atherosclerotic aorta. Similar bibasilar predominant airspace opacities. Similar small bilateral pleural effusions. No pneumothorax. > Interpreting Provider: Olivia Polanco MD on 09/17/2024 4:21 PM Narrative 09/17/2024 4:21 PM FRUIT HARVESTER MACHINE OPERATOR PROCEDURE: ??XR CHEST 1VW PORTABLE DATE/TIME [...] RDERABLES * PHOSPHORUS BLOOD (09/17/2024 12:17 AM FRUIT HARVESTER MACHINE OPERATOR) Phosphorus 3.5 2.8 - 5.1 mg/dL 09/17/2024 12:50 AM FRUIT HARVESTER MACHINE OPERATOR [facility] Blood BLOOD SPECIMEN / Unknown Venipuncture / Unknown 09/17/2024 12:17 AM FRUIT HARVESTER MACHINE OPERATOR 09/17/2024 12:24 AM FRUIT HARVESTER MACHINE OPERATOR Gibran Grande PA-C LAB - CHEMISTRY O RDERABLES [address] [address], [facility] [phone] * MAGNESIUM BLOOD (09/17/2024 12:17 AM FRUIT HARVESTER MACHINE OPERATOR) Magnesium 1.8 1.6 - 2.6 mg/dL 09/17/2024 12:50 AM [facility] Blood BLOOD SPECIMEN / Unknown Venipuncture / Unknown 09/17/2024 12:17 AM FRUIT HARVESTER MACHINE OPERATOR 09/17/2024 12:24 AM FRUIT HARVESTER MACHINE OPERATOR Gibran H Harjinder KHAN LAB - CHEMISTRY O RDERABLES [facility] [address] [place] [address], [facility] [phone] * (ABNORMAL) CBC W/O DIFFERENTIAL (09/17/2024 12:17 AM FRUIT HARVESTER MACHINE OPERATOR) WBC 11.6(H) 4.0 - 10.7 x10E9/L 09/17/2024 12:31 AM [facility] RBC Count 3.02(L) 4.30 - 5.80 x10E12/L 09/17/2024 12:31 AM [facility] Hemoglobin 9.2(L) 13.3 - 17.5 g/dL 09/17/2024 12:31 AM [facility] Hematocrit 27.1(L) 38.7 - 51.1 % 09/17/2024 12:31 AM [facility] MCV 89.7 80.0 - 98.0 fL 09/17/2024 12:31 AM [facility] MCH 30.5 26.7 - 33.6 pg 09/17/2024 12:31 AM [facility] MCHC 33.9 31.7 - 36.3 g/dL 09/17/2024 12:31 AM [facility] RDW-CV 16.2(H) 11.3 - 14.8 % 09/17/2024 12:31 AM [facility] Platelet Count 143(L) 150 - 420 x10E9/L 09/17/2024 12:31 AM [facility] MPV 10.7 7.8 - 11.4 fL 09/17/2024 12:31 AM [facility] NRBC 0.3(H) <=0.0 /100 WBC 09/17/2024 12:31 AM [facility] Blood BLOOD SPECIMEN / Unknown Venipuncture / Unknown 09/17/2024 12:17 AM FRUIT HARVESTER MACHINE OPERATOR 09/17/2024 12:24 AM FRUIT HARVESTER MACHINE OPERATOR Gibran Grande PA-C LAB - HEMATOLOGY ORDERABLES Performing Organization Address [facility]/ZIP Co de Phone Number [address] [address], [facility] [phone] * (ABNORMAL) CALCIUM IONIZED WHOLE BLOOD (09/17/2024 12:17 AM FRUIT HARVESTER MACHINE OPERATOR) Calcium Ionized 1.12 mmol/L 09/17/2024 12:41 AM [facility] pH 7.40 7.35 - 7.45 pH 09/17/2024 12:41 AM [facility] Ionized Calcium pH Adjusted 1.12(L) 1.19 - 1.34 mmol/L 09/17/2024 12:41 AM [facility] Blood BLOOD SPECIMEN / Unknown Venipuncture / Unknown 09/17/2024 12:17 AM FRUIT HARVESTER MACHINE OPERATOR 09/17/2024 12:20 AM FRUIT HARVESTER MACHINE OPERATOR Gibran Grande PA-C LAB - CHEMISTRY O RDERABLES Performing Organization Address City/[facility]/ZIP Co de Phone Number [address] [address], [facility] [phone] * (ABNORMAL) BLOOD GASES ART + COOX PANEL (09/17/2024 12:17 AM FRUIT HARVESTER MACHINE OPERATOR) pH Arterial 7.39 7.35 - 7.45 pH 09/17/2024 12:41 AM [facility] pO2 Arterial 94 80 - 100 mmHg 09/17/2024 12:41 AM [facility] pCO2 Arterial 38 35 - 45 mmHg 12:41 AM [facility] HCO3 Arterial 23.0 20.0 - 30.0 mmol/L 09/17/2024 12:41 AM [facility] BE Arterial -1.7 -2.0 - 2.0 mmol/L 09/17/2024 12:41 AM [facility] Oxyhemoglobin Arterial 95.9 % 09/17/2024 12:41 AM [facility] Dexoyhemoglobin (HHB) % 1.2 % 09/17/2024 12:41 AM [facility] Methemoglobin 1.3 0.0 - 2.0 % 09/17/2024 12:41 AM [facility] Carboxyhemoglobin 1.7 0.0 - 2.0 % 2023 12:41 AM [facility] O2 Content Arterial 13.0 Interpret within clinical context ml/dL 09/17/2024 12:41 AM [facility] Hemoglobin by COOX 9.5(L) 12.0 - 17.6 g/dL 09/17/2024 12:41 AM [facility] O2 Saturation Arterial 99 90 - 100 % 09/17/2024 12:41 AM [facility] FI O2 Arterial 35.0 % 09/17/2024 12:41 AM [facility] Blood, arterial ARTERIAL BLOOD SPECIMEN / Unknown Arterial Puncture / Unknown 09/17/2024 12:17 AM [facility] 09/17/2024 12:20 AM [facility] - 09/17/2024 12:41 AM [facility] Carboxyhemoglobin Normal Concentration: Non-smokers: 0-2%; Smokers: 0-9%; Toxic: >20% Gibran Grande PA-C LAB - BLOOD GASES ORDERABLES Performing Organization Address City/State/[facility] Co de Phone Number [facility] [address] [place] [phone], [facility] [phone] * (ABNORMAL) BASIC METABOLIC PANEL (CALCIUM TOTAL) (09/17/2024 12:17 AM [facility]) BUN 14 7 - 26 mg/dL 09/17/2024 12:50 AM [facility] Creatinine 0.72 0.71 - 1.16 mg/dL 09/17/2024 12:50 AM [facility] Sodium 140 136 - 145 mmol/L 09/17/2024 12:50 AM [facility] Potassium 4.5 3.5 - 4.5 mmol/L 09/17/2024 12:50 AM [facility] Chloride 111(H) 98 - 107 mmol/L 09/17/2024 12:50 AM [facility] CO2 23 22 - 29 mmol/L 09/17/2024 12:50 AM [facility] Glucose 104(H) 70 - 99 mg/dL 09/17/2024 12:50 AM [facility] Calcium 7.8(L) 8.4 - 10.2 mg/dL 09/17/2024 12:50 AM [facility] Anion Gap 6 6 - 16 09/17/2024 12:50 AM [facility] BUN/Creatinine Ratio 19 7 - 23 09/17/2024 12:50 AM [facility] Osmolality Calculated 291 275 - 295 mOsm/kg 09/17/2024 12:50 AM [facility] eGFR by CKD-EPI >90 >=90 mL/min/1.7 3 m2 09/17/2024 12:50 AM [facility] Blood BLOOD SPECIMEN / Unknown Venipuncture / Unknown 09/17/2024 12:17 AM FRUIT HARVESTER MACHINE OPERATOR 09/17/2024 12:24 AM [facility] Gibran Grande PA-C LAB - CHEMISTRY O RDERABLES [facility] [address] [place] [phone], [facility] [phone] * PREPARE (CROSSMATCH) RBC UNIT(S), 2 Units (09/16/2024 1:49 PM FRUIT HARVESTER MACHINE OPERATOR) Unit Description AS1 LR PRBC [facility] Unit ABO A [facility] Unit Rh POS [facility] Product Number R02 [facility] B LOOD [facility] LAB Unit Donor # [id number] [facility] Unit Status transfused [facility] B[facility] OD [facility] Product Code [id number] [facility] Blood Type Barcode 6200 [facility] Expiration Date [id number] S BLOOD BANK LAB Unit Description AS1 LR PRBC [facility] Unit ABO A [facility] Unit Rh POS [facility] Product Number R02 [facility] B LOOD [facility]ANK LAB Unit Donor # [id number] [facility] Unit Status released [facility] BLOO D BANK LAB Product Code [id number] [facility] BLO OD [facility]ANK LAB Blood Type Barcode 6200 [facility] Expiration Date S BLOOD BANK LAB Blood Bank BLOOD SPECIMEN / Unknown 09/14/2024 12:27 AM FRUIT HARVESTER MACHINE OPERATOR Krzysztof Hunt DO LAB - BLOOD BANK O RDERABLES [facility] [address] [place] [address], [place] [phone] * PREPARE (CROSSMATCH) RBC UNIT(S), 2 Units (09/16/2024 1:49 PM FRUIT HARVESTER MACHINE OPERATOR) Unit Description AS1 LR PRBC [facility] B[facility] Unit ABO A [facility] B[facility] Unit Rh POS [facility]OD [facility] Product Number R02 [facility] B LOOD BANK LAB Unit Donor # [id number] [facility] Unit Status released [facility] BLOO D BANK LAB Product Code [id number] [facility] BLO OD BANK LAB Blood Type Barcode 6200 [facility] Expiration Date [id number] S BLOOD BANK LAB Unit Description AS1 LR PRBC [facility] Unit ABO A [facility] B[facility]OD B[facility] Unit Rh POS [facility] BLOOD [facility] Product Number R02 [facility] B LOOD BANK LAB Unit Donor # [id number] [facility] Unit Status released [facility] BLOO D BANK LAB Product Code [id number] [facility] OD BANK LAB Blood Type Barcode 6200 [facility] Expiration Date S BLOOD BANK LAB Blood Bank BLOOD SPECIMEN / Unknown 09/14/2024 12:27 AM FRUIT HARVESTER MACHINE OPERATOR Triston Wilson LAB - BLOOD BANK ORDERABLES Performing Organization Address City/[facility]/ZIP Co de Phone Number [facility] [address] [place] [address], [place] [phone] * XR Chest 1Vw Portable (09/16/2024 1:47 PM FRUIT HARVESTER MACHINE OPERATOR) Anatomical Region Laterality Modality Chest Digital Radiogra phy 09/16/2024 2:59 PM FRUIT HARVESTER MACHINE OPERATOR Narrative 09/16/2024 6:26 PM FRUIT HARVESTER MACHINE OPERATOR PROCEDURE: ??XR CHEST 1VW PORTABLE DATE/TIME [...] emphysema. Report dictated by Manjula Bruno MD, (Stock Speculator). IOlivia MD have personally reviewed and interpreted [...] emphysema. Report dictated by Manjula Bruno MD, (Stock Speculator). I, Olivia Polanco MD have personally reviewed and interpreted this examination/study. > Interpreting Provider: Olivia Polanco MD on 09/16/2024 6:26 PM Kendal Demarco MD DIAGNOSTIC IMAGING O RDERABLES * LACTIC ACID BLOOD (09/16/2024 12:35 PM FRUIT HARVESTER MACHINE OPERATOR) Lactic Acid-Stat 0.9 <=2.0 mmol/L 09/16/2024 1:19 PM FRUIT HARVESTER MACHINE OPERATOR [facility] Blood BLOOD SPECIMEN / Unknown Venipuncture / Unknown 09/16/2024 12:35 PM FRUIT HARVESTER MACHINE OPERATOR 09/16/2024 12:48 PM FRUIT HARVESTER MACHINE OPERATOR Kendal Demarco MD LAB - CHEMISTRY [facility] Organization Address City/State/ZIP Co de Phone Number [address] [phone] [phone] * (ABNORMAL) CALCIUM IONIZED WHOLE BLOOD (09/16/2024 12:35 PM FRUIT HARVESTER MACHINE OPERATOR) Calcium Ionized 1.27 mmol/L 09/16/2024 12:43 PM FRUIT HARVESTER MACHINE OPERATOR [facility] pH 7.34(L) 7.35 - 7.45 pH 09/16/2024 12:43 PM FRUIT HARVESTER MACHINE OPERATOR [facility] Ionized Calcium pH Adjusted 1.24 1.19 - 1.34 mmol/L 09/16/2024 12:43 PM FRUIT HARVESTER MACHINE OPERATOR [facility] Blood BLOOD SPECIMEN / Unknown Venipuncture / Unknown 09/16/2024 12:35 PM FRUIT HARVESTER MACHINE OPERATOR 09/16/2024 12:40 PM FRUIT HARVESTER MACHINE OPERATOR Gibran Grande PA-C LAB - CHEMISTRY O RDCAROLINA [address] [address], [facility] [phone] * PHOSPHORUS BLOOD (09/16/2024 12:35 PM FRUIT HARVESTER MACHINE OPERATOR) Phosphorus 4.0 2.8 - 5.1 mg/dL 09/16/2024 1:21 PM FRUIT HARVESTER MACHINE OPERATOR [facility] Blood BLOOD SPECIMEN / Unknown Venipuncture / Unknown 09/16/2024 12:35 PM FRUIT HARVESTER MACHINE OPERATOR 09/16/2024 12:48 PM FRUIT HARVESTER MACHINE OPERATOR Gibran Grande PA-C LAB - CHEMISTRY O RDERAFRANCISCO [facility] [address] [place] [phone], [facility] [phone] * MAGNESIUM BLOOD (09/16/2024 12:35 PM FRUIT HARVESTER MACHINE OPERATOR) Magnesium 1.9 1.6 - 2.6 mg/dL 09/16/2024 1:18 PM FRUIT HARVESTER MACHINE OPERATOR [facility] Blood BLOOD SPECIMEN / Unknown Venipuncture / Unknown 09/16/2024 12:35 PM FRUIT HARVESTER MACHINE OPERATOR 09/16/2024 12:48 PM FRUIT HARVESTER MACHINE OPERATOR Gibran Grande PA-C LAB - CHEMISTRY O RDERABLES [facility] [address] [place] [address], [place] [phone] * (ABNORMAL) CBC W/O DIFFERENTIAL (09/16/2024 12:35 PM FRUIT HARVESTER MACHINE OPERATOR) WBC 10.7 4.0 - 10.7 x10E9/L 09/16/2024 12:58 PM [facility] RBC Count 2.84(L) 4.30 - 5.80 x10E12/L 09/16/2024 12:58 PM [facility] Hemoglobin 8.5(L) 13.3 - 17.5 g/dL 09/16/2024 12:58 PM [facility] Hematocrit 26.0(L) 38.7 - 51.1 % 09/16/2024 12:58 PM [facility] MCV 91.5 80.0 - 98.0 fL 09/16/2024 12:58 PM [facility] MCH 29.9 26.7 - 33.6 pg 09/16/2024 12:58 PM [facility] MCHC 32.7 31.7 - 36.3 g/dL 09/16/2024 12:58 PM [facility] RDW-CV 15.9(H) 11.3 - 14.8 % 09/16/2024 12:58 PM [facility] Platelet Count 117(L) 150 - 420 x10E9/L 09/16/2024 12:58 PM [facility] MPV 10.5 7.8 - 11.4 fL 09/16/2024 12:58 PM [facility] Blood BLOOD SPECIMEN / Unknown Venipuncture / Unknown 09/16/2024 12:35 PM FRUIT HARVESTER MACHINE OPERATOR 09/16/2024 12:48 PM FRUIT HARVESTER MACHINE OPERATOR Gibran Grande PA-C LAB - HEMATOLOGY ORDERABLES [facility] [address] [place] [address], [place] [phone] * (ABNORMAL) BLOOD GASES ART + COOX PANEL (09/16/2024 12:35 PM [facility]) pH Arterial 7.34(L) 7.35 - 7.45 pH 09/16/2024 12:43 PM [facility] pO2 Arterial 92 80 - 100 mmHg 09/16/2024 12:43 PM [facility] pCO2 Arterial 44 35 - 45 mmHg 12:43 PM [facility] HCO3 Arterial 23.7 20.0 - 30.0 mmol/L 09/16/2024 12:43 PM [facility] BE Arterial -2.0 -2.0 - 2.0 mmol/L 09/16/2024 12:43 PM [facility] Oxyhemoglobin Arterial 95.7 % 09/16/2024 12:43 PM [facility] Dexoyhemoglobin (HHB) % 1.5 % 09/16/2024 12:43 PM [facility] Methemoglobin 0.9 0.0 - 2.0 % 09/16/2024 12:43 PM [facility] Carboxyhemoglobin 1.9 0.0 - 2.0 % 2023 12:43 PM [facility] O2 Content Arterial 12.3 Interpret within clinical context ml/dL 09/16/2024 12:43 PM [facility] Hemoglobin by COOX 9.0(L) 12.0 - 17.6 g/dL 09/16/2024 12:43 PM [facility] O2 Saturation Arterial 99 90 - 100 % 09/16/2024 12:43 PM [facility] FI O2 Arterial 50.0 % 09/16/2024 12:43 PM [facility] Blood, arterial ARTERIAL BLOOD SPECIMEN / Unknown Arterial Puncture / Unknown 09/16/2024 12:35 PM FRUIT HARVESTER MACHINE OPERATOR 09/16/2024 12:40 PM [facility] - 09/16/2024 12:43 PM [facility] Carboxyhemoglobin Normal Concentration: Non-smokers: 0-2%; Smokers: 0-9%; Toxic: >20% Gibran Grande PA-C LAB - BLOOD GASES ORDERABLES Performing Organization Address City/[facility]/ZIP Co de Phone Number [facility] [address] [place] [address], [facility] [phone] * (ABNORMAL) BASIC METABOLIC PANEL (CALCIUM TOTAL) (09/16/2024 12:35 PM FRUIT HARVESTER MACHINE OPERATOR) BUN 14 7 - 26 mg/dL 09/16/2024 1:18 PM [facility] Creatinine 0.72 0.71 - 1.16 mg/dL 09/16/2024 1:18 PM [facility] Sodium 140 136 - 145 mmol/L 09/16/2024 1:18 PM [facility] Potassium 4.3 3.5 - 4.5 mmol/L 09/16/2024 1:18 PM [facility] Chloride 111(H) 98 - 107 mmol/L 09/16/2024 1:18 PM [facility] CO2 24 22 - 29 mmol/L 09/16/2024 1:18 PM [facility] Glucose 96 70 - 99 mg/dL 09/16/2024 1:18 PM [facility] Calcium 8.3(L) 8.4 - 10.2 mg/dL 09/16/2024 1:18 PM [facility] Anion Gap 5(L) 6 - 16 09/16/2024 1:18 PM [facility] BUN/Creatinine Ratio 19 7 - 23 09/16/2024 1:18 PM [facility] Osmolality Calculated 290 275 - 295 mOsm/kg 09/16/2024 1:18 PM [facility] eGFR by CKD-EPI >90 >=90 mL/min/1.7 3 m2 09/16/2024 1:18 PM [facility] Blood BLOOD SPECIMEN / Unknown Venipuncture / Unknown 09/16/2024 12:35 PM [employer] 09/16/2024 12:48 PM [facility] Gibran Grande PA-C LAB - CHEMISTRY O RDERABLES [facility] [address] [place] [address] [phone] * TRANSFUSE RED BLOOD CELL LEUKOREDUCED UNIT(S) (09/16/2024 11:39 AM [facility]) Triston Maldonado Asst NURSING - BLOOD PROD TRANSFUSION * (ABNORMAL) BLOOD GAS+COOX+LYTES+METAB ARTERIAL POCT (09/16/2024 11:02 AM [facility]) pH Arterial 7.38 7.35 - 7.45 pH 09/16/2024 11:02 AM [facility] pO2 Arterial 146(H) 80 - 100 mmHg 09/16/2024 11:02 AM [facility] pCO2 Arterial 43 35 - 45 mmHg 11:02 AM [facility] HCO3 Arterial 25.4 20.0 - 30.0 mmol/L 09/16/2024 11:02 AM [facility] BE Arterial 0.2 -2.0 - 2.0 mmol/L 09/16/2024 11:02 AM [facility] Oxyhemoglobin Arterial 97.7 % 09/16/2024 11:02 AM [facility] Dexoyhemoglobin (HHB) % <1.0 % 09/16/2024 11:02 AM [facility] Methemoglobin <0.8 0.0 - 2.0 % 09/16/2024 11:02 AM [facility] Carboxyhemoglobin 1.3 0.0 - 2.0 % 2023 11:02 AM [facility] Comment:Carboxyhemoglobin No rmal Concentration: Non-smokers: 0-2%; Smokers: 0- 9%; Toxic: >20% O2 Content Arterial 9.1 Interpret within clinical context ml/dL 09/16/2024 11:02 AM [facility] Hemoglobin by COOX 6.4(L) 12.0 - 17.6 g/dL 09/16/2024 11:02 AM [facility] O2 Saturation Arterial 99 90 - 100 % 09/16/2024 11:02 AM [facility] Sodium Whole Blood 136 135 - 145 mmol/L 09/16/2024 11:02 AM [facility] Potassium Whole Blood 4.1 3.5 - 5.5 mmol/L 09/16/2024 11:02 AM [facility] Chloride WB 110(H) 78 - 107 mmol/L 09/16/2024 11:02 AM [facility] Calcium Ionized 1.17 mmol/L 11:02 AM [facility] Ionized Calcium pH Adjusted 1.16(L) 1.19 - 1.34 mmol/L 09/16/2024 11:02 AM [facility] Anion Gap (AG) Arterial 5(L) 6 - 16 mmol/L 09/16/2024 11:02 AM [facility] Glucose WB 101(H) 70 - 99 mg/dL 09/16/2024 11:02 AM [facility] Lactic Acid Whole Blood 0.7 <=2.0 mmol/L 09/16/2024 11:02 AM [facility] Blood, arterial ARTERIAL BLOOD SPECIMEN / Unknown 09/16/2024 11:02 AM [facility] 09/16/2024 11:03 AM [facility] Kendal Demarco MD LAB - POINT OF CARE ORDERABLES [facility] [address] [place] [id number], [facility] [phone] * (ABNORMAL) BLOOD GAS+COOX+LYTES+METAB ARTERIAL POCT (09/16/2024 9:29 AM [facility]) pH Arterial 7.33(L) 7.35 - 7.45 pH 09/16/2024 9:29 AM [facility] pO2 Arterial 136(H) 80 - 100 mmHg 09/16/2024 9:29 AM [facility] pCO2 Arterial 46(H) 35 - 45 mmHg 9:29 AM [facility] HCO3 Arterial 24.3 20.0 - 30.0 mmol/L 09/16/2024 9:29 AM [facility] BE Arterial -1.7 -2.0 - 2.0 mmol/L 09/16/2024 9:29 AM [facility] Oxyhemoglobin Arterial 96.9 % 09/16/2024 9:29 AM [facility] Dexoyhemoglobin (HHB) % <1.0 % 09/16/2024 9:29 AM [facility] Methemoglobin 1.2 0.0 - 2.0 % 09/16/2024 9:29 AM [facility] Carboxyhemoglobin 1.4 0.0 - 2.0 % 2023 9:29 AM [facility] Comment:Carboxyhemoglobin No rmal Concentration: Non-smokers: 0-2%; Smokers: 0- 9%; Toxic: >20% O2 Content Arterial 11.9 Interpret within clinical context ml/dL 09/16/2024 9:29 AM [facility] Hemoglobin by COOX 8.5(L) 12.0 - 17.6 g/dL 09/16/2024 9:29 AM [facility] O2 Saturation Arterial 100 90 - 100 % 09/16/2024 9:29 AM [facility] Sodium Whole Blood 136 135 - 145 mmol/L 09/16/2024 9:29 AM [facility] Potassium Whole Blood 3.9 3.5 - 5.5 mmol/L 09/16/2024 9:29 AM [facility] Chloride WB 110(H) 78 - 107 mmol/L 09/16/2024 9:29 AM [facility] Calcium Ionized 1.19 mmol/L 9:29 AM [facility] Ionized Calcium pH Adjusted 1.16(L) 1.19 - 1.34 mmol/L 09/16/2024 9:29 AM [facility] Anion Gap (AG) Arterial 2(L) 6 - 16 mmol/L 09/16/2024 9:29 AM [facility] Glucose WB 104(H) 70 - 99 mg/dL 09/16/2024 9:29 AM [facility] Lactic Acid Whole Blood 0.6 <=2.0 mmol/L 09/16/2024 9:29 AM [facility] Blood, arterial ARTERIAL BLOOD SPECIMEN / Unknown 09/16/2024 9:29 AM 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 09/16/2024 9:30 AM [facility] Kendal Demarco MD LAB - POINT OF CARE ORDERABLES [facility] [address] [place] [address], [facility] [phone] * (ABNORMAL) BLOOD GAS+COOX+LYTES+METAB ARTERIAL POCT (09/16/2024 8:12 AM [facility]) pH Arterial 7.34(L) 7.35 - 7.45 pH 09/16/2024 8:12 AM [facility] pO2 Arterial 168(H) 80 - 100 mmHg 09/16/2024 8:12 AM [facility] pCO2 Arterial 46(H) 35 - 45 mmHg 8:12 AM [facility] HCO3 Arterial 24.8 20.0 - 30.0 mmol/L 09/16/2024 8:12 AM [facility] BE Arterial -1.0 -2.0 - 2.0 mmol/L 09/16/2024 8:12 AM [facility] Oxyhemoglobin Arterial 98.1 % 09/16/2024 8:12 AM [facility] Dexoyhemoglobin (HHB) % <1.0 % 09/16/2024 8:12 AM [facility] Methemoglobin <0.8 0.0 - 2.0 % 09/16/2024 8:12 AM [facility] Carboxyhemoglobin 1.2 0.0 - 2.0 % 2023 8:12 AM [facility] Comment:Carboxyhemoglobin No rmal Concentration: Non-smokers: 0-2%; Smokers: 0- 9%; Toxic: >20% O2 Content Arterial 12.1 Interpret within clinical context ml/dL 09/16/2024 8:12 AM [facility] Hemoglobin by COOX 8.5(L) 12.0 - 17.6 g/dL 09/16/2024 8:12 AM [facility] O2 Saturation Arterial 100 90 - 100 % 09/16/2024 8:12 AM [facility] Sodium Whole Blood 136 135 - 145 mmol/L 09/16/2024 8:12 AM [facility] Potassium Whole Blood 4.0 3.5 - 5.5 mmol/L 09/16/2024 8:12 AM FRUIT HARVESTER MACHINE OPERATOR [facility] Chloride WB 109(H) 78 - 107 mmol/L 09/16/2024 8:12 AM [facility] Calcium Ionized 1.18 mmol/L 8:12 AM [facility] Ionized Calcium pH Adjusted 1.15(L) 1.19 - 1.34 mmol/L 09/16/2024 8:12 AM [facility] Anion Gap (AG) Arterial 2(L) 6 - 16 mmol/L 09/16/2024 8:12 AM [facility] Glucose WB 102(H) 70 - 99 mg/dL 09/16/2024 8:12 AM [facility] Lactic Acid Whole Blood 0.8 <=2.0 mmol/L 09/16/2024 8:12 AM [facility] Blood, arterial ARTERIAL BLOOD SPECIMEN / Unknown 09/16/2024 8:12 AM FRUIT HARVESTER MACHINE OPERATOR 09/16/2024 8:13 AM FRUIT HARVESTER MACHINE OPERATOR Kendal Demarco MD LAB - POINT OF CARE ORDERABLES [address] [address], [place] [phone] * BLOOD GAS ART+LYTES+METAB+COOX POC NOTIF (09/16/2024 8:10 AM FRUIT HARVESTER MACHINE OPERATOR) Comment Notification Label Only - See Separate Report 09/16/2024 9:30 AM [facility] Other MISCELLANEOUS SAMPLES / Unknown 09/16/2024 8:10 AM FRUIT HARVESTER MACHINE OPERATOR 09/16/2024 8:11 AM FRUIT HARVESTER MACHINE OPERATOR Kendal Demarco MD LAB - BLOOD GASES OR DERABLES [address] [address], [place] [phone] * LACTIC ACID BLOOD (09/16/2024 12:10 AM FRUIT HARVESTER MACHINE OPERATOR) Lactic Acid-Stat 0.9 <=2.0 mmol/L 09/16/2024 1:00 AM [facility] Blood BLOOD SPECIMEN / Unknown Venipuncture / Unknown 09/16/2024 12:10 AM FR[employer] HARVESTER MACHINE OPERATOR 09/16/2024 12:29 AM FRUIT HARVESTER MACHINE OPERATOR Kendal Demarco MD LAB - CHEMISTRY YUAN JI [facility] [address] [place] [address], [place] [phone] * (ABNORMAL) CALCIUM IONIZED WHOLE BLOOD (09/16/2024 12:10 AM FRUIT HARVESTER MACHINE OPERATOR) Calcium Ionized 1.16 mmol/L 09/16/2024 12:32 AM FRUIT HARVESTER MACHINE OPERATOR [facility] pH 7.43 7.35 - 7.45 pH 09/16/2024 12:32 AM FRUIT HARVESTER MACHINE OPERATOR [facility] Ionized Calcium pH Adjusted 1.17(L) 1.19 - 1.34 mmol/L 09/16/2024 12:32 AM FRUIT HARVESTER MACHINE OPERATOR [facility] Blood BLOOD SPECIMEN / Unknown Venipuncture / Unknown 09/16/2024 12:10 AM FRUIT HARVESTER MACHINE OPERATOR 09/16/2024 12:26 AM FRUIT HARVESTER MACHINE OPERATOR Gibran Grande PA-C LAB - CHEMISTRY Javy FLYNN Performing Organization Address [facility]/ZIP Co de Phone Number [address] [address], [place] [phone] * (ABNORMAL) PHOSPHORUS BLOOD (09/16/2024 12:10 AM FRUIT HARVESTER MACHINE OPERATOR) Phosphorus 2.5(L) 2.8 - 5.1 mg/dL 09/16/2024 1:01 AM FRUIT HARVESTER MACHINE OPERATOR [facility] Blood BLOOD SPECIMEN / Unknown Venipuncture / Unknown 09/16/2024 12:10 AM FRUIT HARVESTER MACHINE OPERATOR 09/16/2024 12:31 AM FRUIT HARVESTER MACHINE OPERATOR Gibran Grande PA-C LAB - CHEMISTRY O RDERAFRANCISCO [address] [address], [place] [phone] * MAGNESIUM BLOOD (09/16/2024 12:10 AM FRUIT HARVESTER MACHINE OPERATOR) Magnesium 2.0 1.6 - 2.6 mg/dL 09/16/2024 1:01 AM [facility] Blood BLOOD SPECIMEN / Unknown Venipuncture / Unknown 09/16/2024 12:10 AM FRUIT HARVESTER MACHINE OPERATOR 09/16/2024 12:31 AM FRUIT HARVESTER MACHINE OPERATOR Gbiran Grande PA-C LAB - CHEMISTRY O RDERABLES [facility] [address] [place] [address], [facility] [phone] * (ABNORMAL) CBC W/O DIFFERENTIAL (09/16/2024 12:10 AM [facility]) WBC 12.1(H) 4.0 - 10.7 x10E9/L 09/16/2024 12:43 AM [facility] RBC Count 2.83(L) 4.30 - 5.80 x10E12/L 09/16/2024 12:43 AM [facility] Hemoglobin 8.5(L) 13.3 - 17.5 g/dL 09/16/2024 12:43 AM [facility] Hematocrit 25.5(L) 38.7 - 51.1 % 09/16/2024 12:43 AM [facility] MCV 90.1 80.0 - 98.0 fL 09/16/2024 12:43 AM [facility] MCH 30.0 26.7 - 33.6 pg 09/16/2024 12:43 AM [facility] MCHC 33.3 31.7 - 36.3 g/dL 09/16/2024 12:43 AM [facility] RDW-CV 16.6(H) 11.3 - 14.8 % 09/16/2024 12:43 AM [facility] Platelet Count 129(L) 150 - 420 x10E9/L 09/16/2024 12:43 AM [facility] MPV 10.4 7.8 - 11.4 fL 09/16/2024 12:43 AM [facility] Blood BLOOD SPECIMEN / Unknown Venipuncture / Unknown 09/16/2024 12:10 AM FRUIT HARVESTER MACHINE OPERATOR 09/16/2024 12:31 AM FRUIT HARVESTER MACHINE OPERATOR Gibran H Harjinder KHAN LAB - HEMATOLOGY ORDERABLES [facility] [address] [place] [address], [facility] [phone] * (ABNORMAL) BLOOD GASES ART + COOX PANEL (09/16/2024 12:10 AM FRUIT HARVESTER MACHINE OPERATOR) pH Arterial 7.44 7.35 - 7.45 pH 09/16/2024 12:36 AM [facility] pO2 Arterial 115(H) 80 - 100 mmHg 09/16/2024 12:36 AM [facility] pCO2 Arterial 35 35 - 45 mmHg 12:36 AM [facility] HCO3 Arterial 23.8 20.0 - 30.0 mmol/L 09/16/2024 12:36 AM [facility] BE Arterial -0.1 -2.0 - 2.0 mmol/L 09/16/2024 12:36 AM [facility] Oxyhemoglobin Arterial 97.1 % 09/16/2024 12:36 AM [facility] Dexoyhemoglobin (HHB) % <1.0 % 09/16/2024 12:36 AM [facility] Methemoglobin 0.9 0.0 - 2.0 % 09/16/2024 12:36 AM [facility] Carboxyhemoglobin 1.2 0.0 - 2.0 % 2023 12:36 AM [facility] O2 Content Arterial 12.8 Interpret within clinical context ml/dL 09/16/2024 12:36 AM [facility] Hemoglobin by COOX 9.2(L) 12.0 - 17.6 g/dL 09/16/2024 12:36 AM [facility] O2 Saturation Arterial 99 90 - 100 % 09/16/2024 12:36 AM [facility] FI O2 Arterial 50.0 % 09/16/2024 12:36 AM [facility] Blood, arterial ARTERIAL BLOOD SPECIMEN / Unknown Arterial Puncture / Unknown 09/16/2024 12:10 AM [facility] 09/16/2024 12:26 AM [facility] - 09/16/2024 12:36 AM [facility] Carboxyhemoglobin Normal Concentration: Non-smokers: 0-2%; Smokers: 0-9%; Toxic: >20% Gibran Grande PA-C LAB - BLOOD GASES ORDERABLES [facility] [address] [place] [address], [facility] [phone] * (ABNORMAL) BASIC METABOLIC PANEL (CALCIUM TOTAL) (09/16/2024 12:10 AM [facility]) BUN 20 7 - 26 mg/dL 09/16/2024 1:01 AM [facility] Creatinine 0.85 0.71 - 1.16 mg/dL 09/16/2024 1:01 AM [facility] Sodium 141 136 - 145 mmol/L 09/16/2024 1:01 AM [facility] Potassium 4.2 3.5 - 4.5 mmol/L 09/16/2024 1:01 AM [facility] Chloride 111(H) 98 - 107 mmol/L 09/16/2024 1:01 AM [facility] CO2 23 22 - 29 mmol/L 09/16/2024 1:01 AM [facility] Glucose 99 70 - 99 mg/dL 09/16/2024 1:01 AM [facility] Calcium 7.7(L) 8.4 - 10.2 mg/dL 09/16/2024 1:01 AM [facility] Anion Gap 7 6 - 16 09/16/2024 1:01 AM [facility] BUN/Creatinine Ratio 24(H) 7 - 23 09/16/2024 1:01 AM [facility] Osmolality Calculated 295 275 - 295 mOsm/kg 09/16/2024 1:01 AM [facility] eGFR by CKD-EPI 87(L) >=90 mL/min/1.7 3 m2 09/16/2024 1:01 AM FRUIT HARVESTER MACHINE OPERATOR [facility] Blood BLOOD SPECIMEN / Unknown Venipuncture / Unknown 09/16/2024 12:10 AM FRUIT HARVESTER MACHINE OPERATOR 09/16/2024 12:31 AM FRUIT HARVESTER MACHINE OPERATOR Gibran H Harjinder KHAN LAB - CHEMISTRY O RDERABLES [facility] [address] [place] [address], [facility] [phone] * CT 3D Recon W Independent Wksn (09/15/2024 7:05 PM FRUIT HARVESTER MACHINE OPERATOR) Anatomical Region Laterality Modality Computed Tomogra phy 09/15/2024 7:30 PM FRUIT HARVESTER MACHINE OPERATOR Impressions 09/16/2024 12:07 AM FRUIT HARVESTER MACHINE OPERATOR IMPRESSION: Three-dimensional rendering. Report dictated by Ovidio Myers MD I, Layo Adhikari MD have personally reviewed and interpreted this examination/study. > Interpreting Provider: Layo Adhikari MD on 09/16/2024 12:07 AM Narrative 09/16/2024 12:07 AM FRUIT HARVESTER MACHINE OPERATOR PROCEDURE: ??CT 3D RECON W INDEPENDENT WKSN, DATE/TIME OF EXAM: ??09/15/2024 7:05 PM, LOCATION ??[facility] INDICATION: S22.43XA: Multiple fractures of [...] WKSN, DATE/TIME OF EXAM:09/15/2024 7:05 PM, LOCATION [facility] INDICATION: S22.43XA: Multiple fractures of [...] ART + COOX PANEL (09/15/2024 1:55 PM FRUIT HARVESTER MACHINE OPERATOR) pH Arterial 7.36 7.35 - 7.45 pH 09/15/2024 2:15 PM [facility] pO2 Arterial 94 80 - 100 mmHg 09/15/2024 2:15 PM [facility] pCO2 Arterial 46(H) 35 - 45 mmHg 2:15 PM [facility] HCO3 Arterial 26.0 20.0 - 30.0 mmol/L 09/15/2024 2:15 PM [facility] BE Arterial 0.3 -2.0 - 2.0 mmol/L 09/15/2024 2:15 PM [facility] Oxyhemoglobin Arterial 97.6 % 09/15/2024 2:15 PM [facility] Dexoyhemoglobin (HHB) % <1.0 % 09/15/2024 2:15 PM [facility] Methemoglobin <0.8 0.0 - 2.0 % 09/15/2024 2:15 PM [facility] Carboxyhemoglobin 2.1(H) 0.0 - 2.0 % 2023 2:15 PM [facility] O2 Content Arterial 13.3 Interpret within clinical context ml/dL 09/15/2024 2:15 PM [facility] Hemoglobin by COOX 9.6(L) 12.0 - 17.6 g/dL 09/15/2024 2:15 PM [facility] O2 Saturation Arterial 100 90 - 100 % 09/15/2024 2:15 PM [facility] FI O2 Arterial 70.0 % 09/15/2024 2:15 PM FRUIT HARVESTER MACHINE OPERATOR [facility] Blood, arterial ARTERIAL BLOOD SPECIMEN / Unknown Arterial Puncture / Unknown 09/15/2024 1:55 PM FRUIT HARVESTER MACHINE OPERATOR 09/15/2024 2:11 PM FRUIT HARVESTER MACHINE OPERATOR Narrative [facility] - 09/15/2024 2:15 PM FRUIT HARVESTER MACHINE OPERATOR Carboxyhemoglobin Normal Concentration: Non-smokers: 0-2%; Smokers: 0-9%; Toxic: >20% Kendal Demarco MD LAB - BLOOD GASES OR DERABLES [facility] [address] [place] [address], [facility] [phone] * XR Chest 1Vw Portable (09/15/2024 1:48 PM FRUIT HARVESTER MACHINE OPERATOR) Anatomical Region Laterality Modality Chest Digital Radiogra phy 09/15/2024 2:22 PM FRUIT HARVESTER MACHINE OPERATOR Narrative 09/15/2024 4:01 PM FRUIT HARVESTER MACHINE OPERATOR PROCEDURE: ??XR CHEST 1VW PORTABLE DATE/TIME [...] redemonstrated Report dictated by Manjula Bruno MD, (Stock Speculator). Olivia Casey MD have personally reviewed and [...] redemonstrated Report dictated by Manjula Bruno MD, (Stock Speculator). Olivia Casey MD have personally reviewed and interpreted this examination/study. > Interpreting Provider: Olivia Polanco MD on 09/15/2024 4:01 PM Kendal Demarco MD DIAGNOSTIC IMAGING O RDERABLES * LACTIC ACID BLOOD (09/15/2024 12:23 PM FRUIT HARVESTER MACHINE OPERATOR) Lactic Acid-Stat 1.1 <=2.0 mmol/L 09/15/2024 1:24 PM FRUIT HARVESTER MACHINE OPERATOR [facility] Blood BLOOD SPECIMEN / Unknown Venipuncture / Unknown 09/15/2024 12:23 PM FRUIT HARVESTER MACHINE OPERATOR 09/15/2024 12:55 PM FRUIT HARVESTER MACHINE OPERATOR Kendal Demarco MD LAB - CHEMISTRY YUAN JI [address] [address], [place] [phone] * (ABNORMAL) CALCIUM IONIZED WHOLE BLOOD (09/15/2024 12:23 PM FRUIT HARVESTER MACHINE OPERATOR) Calcium Ionized 1.22 mmol/L 09/15/2024 12:54 PM FRUIT HARVESTER MACHINE OPERATOR [facility] pH 7.28(L) 7.35 - 7.45 pH 09/15/2024 12:54 PM FRUIT HARVESTER MACHINE OPERATOR [facility] Ionized Calcium pH Adjusted 1.16(L) 1.19 - 1.34 mmol/L 09/15/2024 12:54 PM FRUIT HARVESTER MACHINE OPERATOR [facility] Blood BLOOD SPECIMEN / Unknown Venipuncture / Unknown 09/15/2024 12:23 PM FRUIT HARVESTER MACHINE OPERATOR 09/15/2024 12:46 PM FRUIT HARVESTER MACHINE OPERATOR Gibran Grande PA-C LAB - CHEMISTRY O RDERAFRANCISCO [address] [address], [place] [phone] * PHOSPHORUS BLOOD (09/15/2024 12:23 PM FRUIT HARVESTER MACHINE OPERATOR) Phosphorus 3.7 2.8 - 5.1 mg/dL 09/15/2024 1:29 PM FRUIT HARVESTER MACHINE OPERATOR [facility] Blood BLOOD SPECIMEN / Unknown Venipuncture / Unknown 09/15/2024 12:23 PM FRUIT HARVESTER MACHINE OPERATOR 09/15/2024 12:56 PM FRUIT HARVESTER MACHINE OPERATOR Gibran Grande PA-C LAB - CHEMISTRY O RDERABLES [address] [address], [place] [phone] * MAGNESIUM BLOOD (09/15/2024 12:23 PM FRUIT HARVESTER MACHINE OPERATOR) Magnesium 2.1 1.6 - 2.6 mg/dL 09/15/2024 1:29 PM [facility] Blood BLOOD SPECIMEN / Unknown Venipuncture / Unknown 09/15/2024 12:23 PM FRUIT HARVESTER MACHINE OPERATOR 09/15/2024 12:56 PM FRUIT HARVESTER MACHINE OPERATOR Gibran Grande PA-C LAB - CHEMISTRY O RDERABLES Performing Organization Address City/[facility] Co de Phone Number [facility] [address] [place] [address], [facility] [phone] * (ABNORMAL) CBC W/O DIFFERENTIAL (09/15/2024 12:23 PM FRUIT HARVESTER MACHINE OPERATOR) [facility] WBC 12.8(H) 4.0 - 10.7 x10E9/L 09/15/2024 1:17 PM [facility] RBC Count 3.05(L) 4.30 - 5.80 x10E12/L 09/15/2024 1:17 PM [facility] Hemoglobin 9.4(L) 13.3 - 17.5 g/dL 09/15/2024 1:17 PM [facility] Hematocrit 28.0(L) 38.7 - 51.1 % 09/15/2024 1:17 PM [facility] MCV 91.8 80.0 - 98.0 fL 09/15/2024 1:17 PM [facility] MCH 30.8 26.7 - 33.6 pg 09/15/2024 1:17 PM [facility] MCHC 33.6 31.7 - 36.3 g/dL 09/15/2024 1:17 PM [facility] RDW-CV 17.2(H) 11.3 - 14.8 % 09/15/2024 1:17 PM [facility] Platelet Count 125(L) 150 - 420 x10E9/L 09/15/2024 1:17 PM [facility] MPV 10.5 7.8 - 11.4 fL 09/15/2024 1:17 PM [facility] Blood BLOOD SPECIMEN / Unknown Venipuncture / Unknown 09/15/2024 12:23 PM FRUIT HARVESTER MACHINE OPERATOR 09/15/2024 12:55 PM FRUIT HARVESTER MACHINE OPERATOR Gibran Grande PA-C LAB - HEMATOLOGY ORDERABLES [facility] [address] [place] [address], [facility] [phone] * (ABNORMAL) BLOOD GASES ART + COOX PANEL (09/15/2024 12:23 PM FRUIT HARVESTER MACHINE OPERATOR) pH Arterial 7.30(L) 7.35 - 7.45 pH 09/15/2024 12:54 PM [facility] pO2 Arterial 97 80 - 100 mmHg 09/15/2024 12:54 PM [facility] pCO2 Arterial 55(H) 35 - 45 mmHg 12:54 PM [facility] HCO3 Arterial 27.1 20.0 - 30.0 mmol/L 09/15/2024 12:54 PM [facility] BE Arterial 0.1 -2.0 - 2.0 mmol/L 09/15/2024 12:54 PM [facility] Oxyhemoglobin Arterial 97.1 % 09/15/2024 12:54 PM [facility] Dexoyhemoglobin (HHB) % <1.0 % 09/15/2024 12:54 PM [facility] Methemoglobin <0.8 0.0 - 2.0 % 09/15/2024 12:54 PM [facility] Carboxyhemoglobin 1.8 0.0 - 2.0 % 2023 12:54 PM [facility] O2 Content Arterial 13.5 Interpret within clinical context ml/dL 09/15/2024 12:54 PM [facility] Hemoglobin by COOX 9.8(L) 12.0 - 17.6 g/dL 09/15/2024 12:54 PM [facility] O2 Saturation Arterial 99 90 - 100 % 09/15/2024 12:54 PM [facility] FI O2 Arterial 80.0 % 09/15/2024 12:54 PM [facility] Blood, arterial ARTERIAL BLOOD SPECIMEN / Unknown Arterial Puncture / Unknown 09/15/2024 12:23 PM FRUIT HARVESTER MACHINE OPERATOR 09/15/2024 12:46 PM [facility] - 09/15/2024 12:54 PM [facility] Carboxyhemoglobin Normal Concentration: Non-smokers: 0-2%; Smokers: 0-9%; Toxic: >20% Gibran Chidi Harjinder KHAN LAB - BLOOD GASES ORDERABLES Performing Organization Address City/State/[facility] Co de Phone Number [facility] [address] [place] [address], [facility] [phone] * (ABNORMAL) BASIC METABOLIC PANEL (CALCIUM TOTAL) (09/15/2024 12:23 PM FRUIT HARVESTER MACHINE OPERATOR) BUN 16 7 - 26 mg/dL 09/15/2024 1:29 PM [facility] Creatinine 0.88 0.71 - 1.16 mg/dL 09/15/2024 1:29 PM [facility] Sodium 141 136 - 145 mmol/L 09/15/2024 1:29 PM [facility] Potassium 4.5 3.5 - 4.5 mmol/L 09/15/2024 1:29 PM [facility] Chloride 111(H) 98 - 107 mmol/L 09/15/2024 1:29 PM [facility] CO2 25 22 - 29 mmol/L 09/15/2024 1:29 PM [facility] Glucose 108(H) 70 - 99 mg/dL 09/15/2024 1:29 PM [facility] Calcium 8.2(L) 8.4 - 10.2 mg/dL 09/15/2024 1:29 PM [facility] Anion Gap 5(L) 6 - 16 09/15/2024 1:29 PM [facility] BUN/Creatinine Ratio 18 7 - 23 09/15/2024 1:29 PM [facility] Osmolality Calculated 294 275 - 295 mOsm/kg 09/15/2024 1:29 PM [facility] eGFR by CKD-EPI 86(L) >=90 mL/min/1.7 3 m2 09/15/2024 1:29 PM [facility] Blood BLOOD SPECIMEN / Unknown Venipuncture / Unknown 09/15/2024 12:23 PM FRUIT HARVESTER MACHINE OPERATOR 09/15/2024 12:56 PM FRUIT HARVESTER MACHINE OPERATOR Gibran Grande PA-C LAB - CHEMISTRY O RDERABLES [facility] [address] [place] [address], [facility] [phone] * XR Abdomen Kub Portable (09/15/2024 11:27 AM FRUIT HARVESTER MACHINE OPERATOR) Anatomical Region Laterality Modality Abdomen Digital Radiogra phy 09/15/2024 11:3 1 AM FRUIT HARVESTER MACHINE OPERATOR Impressions 09/15/2024 11:48 AM FRUIT HARVESTER MACHINE OPERATOR IMPRESSION: No retained lap pads, needles, or [...] 09/15/2024 11:48 AM Narrative 09/15/2024 11:48 AM FRUIT HARVESTER MACHINE OPERATOR PROCEDURE: ??XR ABDOMEN KUB PORTABLE DATE/TIME [...] COLOR FLOW AND DOPPLER (09/15/2024 9:32 AM FRUIT HARVESTER MACHINE OPERATOR) Myocardial strain charge 2 unitless [facility]SM CV FUJI PACS LVOT diam 1.944 cm SSM CV FUJ I PACS LVPWd 0.637 cm SSM CV FUJ I PACS Ascending aorta 3.465 cm SSM CV FUJI PACS Sinus of Valsalva 3.261 cm SSM CV FUJI PACS Anatomical Region Laterality Modality Ultrasound 09/15/2024 9:04 AM FRUIT HARVESTER MACHINE OPERATOR Narrative 09/15/2024 10:21 AM FRUIT HARVESTER MACHINE OPERATOR Summary ??* Limited study and technically [...] 1940 Gender: ? Male Accession #: ? [id number] Ht: ? 70 in Wt: ? 187 lb BSA: ? 2.06 m2 HR: ? 100 bpm BP: ? 122 / ? 60 mmHg Heart Rhythm: ? Tachycardia Exam Date: ? 09/15/2024 9:04 AM Patient Status: ? I/P Study Site: ? [facility] Primary Location: ? [facility] [...] Kendal Demarco Attending Physician: ? Kendal Demarco Water Resource Consultant: ? Oscar Dowd Left Ventricle ??The left [...] 9:04 AM Patient Status: I/P Study Site: [facility] Primary Location: [facility] [...] Provider: Kendal Demarco Attending Physician: Kendal Demarco Water Resource Consultant: Oscar Dowd Left Ventricle The left ventricular [...] (ABNORMAL) TROPONIN-I HIGH SENSITIVE (09/15/2024 5:54 AM FRUIT HARVESTER MACHINE OPERATOR) Troponin I High Sensitive 475(HH) <=35 ng/L 09/15/2024 6:46 AM FRUIT HARVESTER MACHINE OPERATOR [facility] Blood BLOOD SPECIMEN / Unknown Venipuncture / Unknown 09/15/2024 5:54 AM FRUIT HARVESTER MACHINE OPERATOR 09/15/2024 6:10 AM FRUIT HARVESTER MACHINE OPERATOR Kendal Demarco MD LAB - CHEMISTRY YUAN JI Performing Organization Address City/[facility]/ZIP Co de Phone Number [address] [address], [facility] [phone] * (ABNORMAL) TROPONIN-I HIGH SENSITIVE REFLEX 1HOUR (09/15/2024 3:18 AM FRUIT HARVESTER MACHINE OPERATOR) Troponin I High Sensitive 474(HH) <=35 ng/L 09/15/2024 4:17 AM FRUIT HARVESTER MACHINE OPERATOR [facility] Delta Troponin I HS <0 <6 ng/L 09/15/2024 4:17 AM FRUIT HARVESTER MACHINE OPERATOR [facility] Blood BLOOD SPECIMEN / Unknown Venipuncture / Unknown 09/15/2024 3:18 AM FRUIT HARVESTER MACHINE OPERATOR 09/15/2024 3:28 AM FRUIT HARVESTER MACHINE OPERATOR Kendal Demarco MD LAB - CHEMISTRY YUAN JI Performing Organization Address [facility] Co de Phone Number [address] [address], [facility] [phone] * XR Chest 1Vw Portable (09/15/2024 2:50 AM FRUIT HARVESTER MACHINE OPERATOR) Anatomical Region Laterality Modality Chest Digital Radiogra phy 09/15/2024 8:52 AM FRUIT HARVESTER MACHINE OPERATOR Narrative 09/15/2024 3:07 PM FRUIT HARVESTER MACHINE OPERATOR PROCEDURE: ??XR CHEST 1VW PORTABLE DATE/TIME [...] fracture. Report dictated by Manjula Bruno MD, (Stock Speculator). IOlivia MD have personally reviewed and interpreted [...] fracture. Report dictated by Manjula Bruno MD, (Stock Speculator). I, Olivia Polanco MD have personally reviewed and interpreted this examination/study. > Interpreting Provider: Olivia Polanco MD on 09/15/2024 3:07 PM Kendal Demarco MD DIAGNOSTIC IMAGING O RDERABLES * LACTIC ACID BLOOD (09/15/2024 2:04 AM FRUIT HARVESTER MACHINE OPERATOR) [facility] Lactic Acid-Stat 1.4 <=2.0 mmol/L 09/15/2024 2:48 AM [facility] Blood BLOOD SPECIMEN / Unknown Venipuncture / Unknown 09/15/2024 2:04 AM FRUIT HARVESTER MACHINE OPERATOR 09/15/2024 2:23 AM FRUIT HARVESTER MACHINE OPERATOR Kendal Demarco MD LAB - CHEMISTRY YUAN JI [facility] Organization Address City/State/ZIP Co de Phone Number [facility] [address] [place] [phone], [facility] [phone] * (ABNORMAL) BLOOD GASES ART + COOX PANEL (09/15/2024 2:04 AM FRUIT HARVESTER MACHINE OPERATOR) [facility] pH Arterial 7.48(H) 7.35 - 7.45 pH 09/15/2024 2:18 AM [facility] pO2 Arterial 82 80 - 100 mmHg 09/15/2024 2:18 AM [facility] pCO2 Arterial 32(L) 35 - 45 mmHg 2:18 AM [facility] HCO3 Arterial 23.8 20.0 - 30.0 mmol/L 09/15/2024 2:18 AM [facility] BE Arterial 0.6 -2.0 - 2.0 mmol/L 09/15/2024 2:18 AM [facility] Oxyhemoglobin Arterial 96.2 % 09/15/2024 2:18 AM [facility] Dexoyhemoglobin (HHB) % 1.4 % 09/15/2024 2:18 AM [facility] Methemoglobin 1.0 0.0 - 2.0 % 09/15/2024 2:18 AM [facility] Carboxyhemoglobin 1.4 0.0 - 2.0 % 2023 2:18 AM [facility] O2 Content Arterial 13.4 Interpret within clinical context ml/dL 09/15/2024 2:18 AM [facility] Hemoglobin by COOX 9.8(L) 12.0 - 17.6 g/dL 09/15/2024 2:18 AM [facility] O2 Saturation Arterial 99 90 - 100 % 09/15/2024 2:18 AM [facility] FI O2 Arterial 40.0 % 09/15/2024 2:18 AM [facility] Blood, arterial ARTERIAL BLOOD SPECIMEN / Unknown Arterial Puncture / Unknown 09/15/2024 2:04 AM FRUIT HARVESTER MACHINE OPERATOR 09/15/2024 2:16 AM FRUIT HARVESTER MACHINE OPERATOR Narrative [facility] - 09/15/2024 2:18 AM FRUIT HARVESTER MACHINE OPERATOR Carboxyhemoglobin Normal Concentration: Non-smokers: 0-2%; Smokers: 0-9%; Toxic: >20% Kendal Demarco MD LAB - BLOOD GASES OR DERABLES [facility] [address] [place] [address], [facility] [phone] * (ABNORMAL) TROPONIN-I HIGH SENSITIVE BASELINE + 1HR (09/15/2024 2:04 AM FRUIT HARVESTER MACHINE OPERATOR) Troponin I High Sensitive 490(HH) <=35 ng/L 09/15/2024 2:59 AM [facility] Blood BLOOD SPECIMEN / Unknown Venipuncture / Unknown 09/15/2024 2:04 AM FRUIT HARVESTER MACHINE OPERATOR 09/15/2024 2:23 AM FRUIT HARVESTER MACHINE OPERATOR Kendal Demarco MD LAB - CHEMISTRY YUAN JI [facility] [address] [place] [address], [facility] [phone] * EKG 12-LEAD (09/15/2024 1:53 AM FRUIT HARVESTER MACHINE OPERATOR) Ventricular Rate 85 BPM [facility] Atrial Rate 85 BPM [facility] MUSE P-R Interval 134 ms [facility] MUSE QRS Duration ms 82 ms [facility] MUSE Q-T Interval ms 384 ms [facility] MUSE QTC Calculation (Bezet) 456 ms [facility] MUSE Calculated P [place] 69 degrees [facility] MUSE Calculated R [place] -22 degrees [facility] MUSE Calculated T [place] 54 degrees [facility] MUSE Interpretation EKG NORMAL SINUS RHYTHM LOW VOLTAGE QRS BORDERLINE ECG NO PREVIOUS ECGS AVAILABLE Confirmed by RILEY MEEHAN MD ([id number]) on 09/15/2024 1:34:49 PM [facility] 09/15/2024 1:53 AM FRUIT HARVESTER MACHINE OPERATOR 09/15/2024 1:34 PM FRUIT HARVESTER MACHINE OPERATOR Kendal Demarco MD ECG ORDERABLES Performing Organization Address [facility] Co de Phone Number [facility] * (ABNORMAL) CALCIUM IONIZED WHOLE BLOOD (09/14/2024 11:20 PM FRUIT HARVESTER MACHINE OPERATOR) [facility] Calcium Ionized 1.05 mmol/L 09/15/2024 12:35 AM [facility] pH 7.49(H) 7.35 - 7.45 pH 09/15/2024 12:35 AM [facility] Ionized Calcium pH Adjusted 1.09(L) 1.19 - 1.34 mmol/L 09/15/2024 12:35 AM [facility] Blood BLOOD SPECIMEN / Unknown Venipuncture / Unknown 09/14/2024 11:20 PM FRUIT HARVESTER MACHINE OPERATOR 09/15/2024 12:17 AM FRUIT HARVESTER MACHINE OPERATOR Gibran Grande PA-C LAB - CHEMISTRY O RDERABLES Performing Organization Address City/[facility]/ZIP Co de Phone Number [facility] [address] [place] [address], [facility] [phone] * TRIGLYCERIDES BLOOD (09/14/2024 11:20 PM FRUIT HARVESTER MACHINE OPERATOR) Triglycerides 86 <150 mg/dL 09/15/2024 12:45 AM FRUIT HARVESTER MACHINE OPERATOR [facility] Comment: ATP III Classification of Triglycerides: ?<150 mg/dL: ??Normal ? 150 - 199 mg/dL: ??Borderline High ? 200 - 400 mg/dL: ??High ?>500 mg/dL: ??Very High Blood BLOOD SPECIMEN / Unknown Venipuncture / Unknown 09/14/2024 11:20 PM FRUIT HARVESTER MACHINE OPERATOR 09/15/2024 12:20 AM FRUIT HARVESTER MACHINE OPERATOR Gibran Grande PA-C LAB - CHEMISTRY O RDERAFRANCISCO [address] [address], [facility] [phone] * PHOSPHORUS BLOOD (09/14/2024 11:20 PM FRUIT HARVESTER MACHINE OPERATOR) Phosphorus 3.5 2.8 - 5.1 mg/dL 09/15/2024 1:02 AM FRUIT HARVESTER MACHINE OPERATOR [facility] Blood BLOOD SPECIMEN / Unknown

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
--- OUTSIDE RECORDS SUMMARY | 2024-11-07 04:57 | XMS_ITS | Encounter Summary ---
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 SPO2. Levo weaned to 0.01, precedex increased to 0.09 due to pt pulling at ETT and lines. Graham removed againovernight per nurse customer manager, however pt straight cathed x2 for [...] , INR , PTT in the last 21409 hours. Assessment/Plan: Neuro: Acute posttraumatic pain -continue [...] in SNF or acute rehab Kosta Corral APRN-TOOTH GRINDER 10/16/2024 6:45 AM [employer] * Ella Landry OT - 10/15/2024 2:33 PM CST [facility] Occupational Therapy Progress Note Patient: Lucian Sosa Med Record Number: [id number] Date of : 1940 Age: [age] year [...] Activity Tolerance: Requires seated rest breaks Modified Volga: Current Modified Volga Score: 4 AM-PAC 6 Clicks Daily Activity [...] sitting with standby assist - added 10/14 Halfway Goal(s): Patient to discharge to appropriate next [...] light within reach, with RN in room. [employer] * Tessa Gonzáles PA-C - 10/15/2024 1:47 [...] cervical collar now. 10/12: did not pass BASKETBALL SCOUT for diet 10/11. Activity as tolerated in [...] discussed with family and extubated patient to IL. 1-2 hours following extubation, patient required escalation to NRB and HFNC, thus re-intubated. Again doing well on vent per ABG and SPO2. Levo weaned to 0.01, precedex increased to 0.09 due to pt pulling at ETT and lines. Graham removed againovernight per nurse customer manager, however pt straight cathed x2 for [...] 3 mL Inhalation q6h PRN Kathy Mendoza, STRATEGIC INSIGHTS LEAD-TOOTH GRINDER bisacodyl (Dulcolax) suppository 10 mg 10 mg Rectal QDAY PRN Tessa Gonzáles PA-C enoxaparin (Lovenox) injection 30 mg 30 mg Subcutaneous q12h Yolanda Crane DO 30 mg at 10/15/24 1136 Haemophilus B Conjugate Vaccine (ActHIB; 6wk+) (Hib (PRP-T)) 0.5 mL 0.5 mL Intramuscular Immunization - Once Kendal Demarco MD lidocaine (Lidoderm) 5 % patch 2 patch 2 patch Transdermal q24h Kathy Mendoza APRN-TOOTH GRINDER 2 patch at112/16/23 1137 melatonin tablet 5 [...] 17 g Enteral Tube QDAY Kathy Mendoza, STRATEGIC INSIGHTS LEAD-TOOTH GRINDER 17 gat 10/15/24 1140 senna (Senokot) tablet 17.2 mg 17.2 mg Enteral Tube QDAY Kathy Mendoza, STRATEGIC INSIGHTS LEAD- TOOTH GRINDER 17.2 mg at 10/15/24 1137 tamsulosin (Flomax) [...] 10/14. Tessa Gonzáles PA-C 10/15/2024 1:47 PM [employer] * She Wells RN - 10/15/2024 11:51 AM CST Images from the original note were not included. Care Coordination Progress Note Expected Discharge Date: 10/15/2024 Discharge Plan: Insurance denied rehab. P2P to have happened by 0900 on . Per SW backup SNFs were sent out. SW will manage referrals, transfer, and transportation. Continued Care and Services - Admitted Since 09/13/2024 Destination Coordination complete. Service Provider Request Status Selected Services Address Phone Fax Patient Preferred [facility] (formerly [facility]) Selected Long-Term [address] [facility] [address] [phone] -- [facility] - ACUTE REH[facility] Accepted -- [address] [facility] [address] [phone] [facility] Pending - Request Sent -- [address] [facility] [address] [phone] -- [facility] Pending - Request Sent -- [address] [facility] [address] [phone] -- [facility] Pending - Request Sent -- [address] [facility] [address] [phone] -- [facility] Pending - Request Sent -- [address] [facility] [address] [phone] -- [facility] Pending - Request Sent -- [address] [facility] [address] [phone] -- [facility] Pending - Request Sent -- [address] [facility] [address] [phone] -- [facility] Pending - Request Sent -- [address] [facility] [address] [phone] -- [facility] Pending - Request Sent -- [address] [facility] [phone] -- Current Capacity last updated by Torri Mueller on 06/10/2024 1115 Renamed: [facility] ([facility] Pending - Request Sent -- [address] [facility] [address] [phone] -- [facility]) Pending - Request Sent -- [address] [phone] -- Current Capacity last updated by Nikki Parikh on 08/04/2024 1444 We have 6 available female beds and 6 available male beds. [facility] Pending - Request Sent -- [address] [facility] [address] [phone] -- [facility] Pending - No Request Sent -- [address] [facility] [facility] [phone] -- [facility] [place] [facility]. Acute Rehab Pending - No Request Sent -- [address] [facility] [phone] -- Family Support (Name and Phone): Extended Emergency Contact Information Primary Emergency Contact: Anamaria Gomez Mobile Relation: Daughter Secondary Emergency Contact: Lilliam Campbell Relation: Grandchild Preferred language: East Timorese Deputy Director Of Finance needed? No Transportation at Discharge: Ambulance: READMISSION RISK SCORE is 13 at 11:51 AM 10/15/2024.: [email or web address] JEAN BENNETT, MA-Certification, A.D.N, BSN [phone] [employer] * Gentry Cain RN - 10/15/2024 11:20 [...] agreement, if implemented Description: INTERVENTIONS Outcome: Progressing [employer] * Izabel Yoder, PT - 10/15/2024 10:56 AM CST [facility] Physical Therapy Progress Note Patient: Lucian Sosa Med Record Number: [id number] Date of : 1940 Age: [age] year [...] assist with appropriate AD - added 10/08 Manager Lsw Goal(s): Patient to discharge to appropriate next [...] Gentry gomez, with fall mats in place. [employer] * Tessa Gonzáles PA-C - 10/14/2024 5:30 PM CST Peer To Peer: Spoke with Care Transition Vp Product Marketing for [facility]. They will review the latest therapy notes and update their recommendations. Tessa Gonzáles PA-C 10/14/2024 5:33 PM [employer] * Kd Lacey SLP - 10/14/2024 4:10 PM CST [facility] Swallow Therapy Patient: Lucian Sosa Med Record Number: [id number] Date of : 1940 Age: [age] year [...] Impression - Pharyngeal: Mild Education/Interventions: While performing BASKETBALL SCOUT, Patient was instructed in: results of swallow [...] oropharyngeal swallow function to warrant diet upgrade. Manager Lsw Goal (s): Patient to be independent/baseline with functional mobility and self care and be able to safely discharge to prior level of care. Kd Munson M.A., [facility]-BASKETBALL SCOUT Speech Language Pathologist [phone] [employer] * Rodríguez Reina MSW - 10/14/2024 4:05 PM CST Summary Note Discharge Level of Care: acute rehab vs SNF Discharge Destination: [facility] Insurance Auth: Denied - peer to peer offered by calling [phone] opt 5 by tomorrow morning [email or web address] Anticipated Mode of Transportation:EMS Contacts (Name, relationship, phone #): Anamaria daughter [phone] Anticipated DC Date:10/15 Pending Needs: Insurance auth to be approved Comments: SW called and spoke with pt's daughter Anamaria and provided update on the insurance denying. EASTON Moore 10/14/2024 ' [employer] * Frantz Ella, OT - 10/14/2024 10:33 AM CST [facility] Occupational Therapy Progress Note Patient: Lucian Sosa [facility] Record Number: [id number] Date of : 1940 Age: [age] year [...] Facial Hygiene: Minimal Assistance (to wash face, [place] to initiate; max cueing) Upper Body Dressing: Maximal Assistance (to adjust gown) Lower Body Dressing: Total Assistance (to adjust socks while supported in bed) Toileting: Total Assistance (for posterior hygiene while in bed) Splint Issued/Checked: none ACTIVITY TOLERANCE: Activity Tolerance: Requires rest breaks Modified Volga: Current Modified Volga Score: 4 AM-PAC 6 Clicks Daily Activity [...] sitting with standby assist - added 10/14 Halfway Goal(s): Patient to discharge to appropriate next [...] under patient, with call light within reach. [employer] * Izabel Yoder, PT - 10/14/2024 9:51 AM CST [facility] Physical Therapy Progress Note Patient: Lucian Sosa Med Record Number: [id number] Date of : 1940 Age: [age] year [...] assist with appropriate AD - added 10/08 Manager Lsw Goal(s): Patient to discharge to appropriate next [...] fall mats in place, all lines/tubes intact. [employer] * Tessa Gonzáles PA-C - 10/14/2024 8:15 [...] cervical collar now. 10/12: did not pass BASKETBALL SCOUT for diet 10/11. Activity as tolerated in [...] 100mg TID. 09/24: Patient extubated yesterday to IL. Remains stable on 6L NC. Dobhoff placed [...] discussed with family and extubated patient to IL. 1-2 hours following extubation, patient required escalation to NRB and HFNC, thus re-intubated. Again doing well on vent per ABG and SPO2. Levo weaned to 0.01, precedex increased to 0.09 due to pt pulling at ETT and lines. Graham removed againovernight per nurse customer manager, however pt straight cathed x2 for [...] 17 g Enteral Tube QDAY Kathy Mendoza, STRATEGIC INSIGHTS LEAD-TOOTH GRINDER 17 gat 10/13/24 0932 senna (Senokot) tablet 17.2 mg 17.2 mg Enteral Tube QDAY Kathy Mendoza, STRATEGIC INSIGHTS LEAD- TOOTH GRINDER 17.2 mg at 10/13/24 0933 tamsulosin (Flomax) [...] Rehab. Tessa Gonzáles PA-C 10/14/2024 8:16 AM [employer] * Jacob Horton MD - 10/14/2024 5:21 AM CST Orthopaedic Trauma Surgery Daily Progress Note Name: Lucian Sosa Age: [age] year old Room: 836/[facility] Date Admitted: 09/13/2024 Interval History: Patient seen [...] , INR , PTT in the last 48289 hours. Vitamin D Recent Labs Component Name 09/14/24 0013 LLTW52DI 17.9* Vitals BP 126/70 (BP Location: Left [...] please contact Ortho Trauma APPs or send Ibelem chat to PATRIC. For urgent questions, please page Ortho Trauma service pager through [employer]ION. To avoid delays in communication and patient care, please do not use Convrrt Secure Chat. Patient will require follow up in the office with Dr. Roldan 2 week(s) after discharge. Ortho office staff to help arrange. Please notify Ortho Trauma PATRIC when patient is ready for discharge. Contact information below: [facility] Office Schedulers: [phone], option 1 Jacob Horton MD 10/14/2024 1:51 PM [employer] Associated attestation - She Roldan MD - 10/15/2024 10:48 AM [employer] ATTENDING ADDENDUM: Patient discussed during rounds. I confirm the history, physical exam, assessment and plan. Please see resident note for further details. She Roldan MD 10/15/2024 10:48 AM * Mallory Castle SLP - 10/13/2024 1:33 PM CST [facility] Swallow Treatment Patient: Lucian Sosa Med Record Number: [id number] Date of : 1940 Age: [age] year [...] Impression - Pharyngeal: Moderate Treatment/Education/Interventions: While performing BASKETBALL SCOUT, Patient and Caregiver was instructed in: recommendations [...] clinical signs of aspiration and aspiration precautions. Halfway Goal (s): Patient to be independent/baseline with functional mobility and self care and be able to safely discharge to prior level of care. Plan: BASKETBALL SCOUT to follow for PO trials as able [employer] * She Wells RN - 10/13/2024 1:02 PM CST Care Coordination Progress Note Expected Discharge Date: 10/14/2024 Discharge Plan: Plan is for dc to [facility]; waiting on insurance authorization; SW following referral and will manage transfer and transportation. Family Support (Name and Phone): Extended Emergency Contact Information Primary Emergency Contact: Anamaria Gomez Mobile Relation: Daughter Secondary Emergency Contact: Lilliam Campbell Mascot Relation: Grandchild Preferred language: [place]orese Deputy Director Of Finance needed? No Transportation at Discharge: Family:, EMS READMISSION RISK SCORE is 13 at 1:02 PM 10/13/2024.: [email or web address] JEAN BENNETT MA-Certification, A.D.N, BSN [phone] [employer] * Kosta Corral R, STRATEGIC INSIGHTS LEAD-TOOTH GRINDER - 10/13/2024 9:46 AM CST Images from [...] cervical collar now. 10/12: did not pass BASKETBALL SCOUT for diet 10/11. Activity as tolerated in [...] 100mg TID. 09/24: Patient extubated yesterday to IL. Remains stable on 6L NC. Dobhoff placed [...] and lines. Graham removed againovernight per nurse customer manager, however pt straight cathed x2 for [...] , INR , PTT in the last 56381 hours. Assessment/Plan: Neuro: Acute posttraumatic pain -continue [...] benefit from restorative services in acute rehab Kosta Corral APRN-TOOTH GRINDER 10/13/2024 9:46 AM [employer] * Andrea Botello RN - 10/12/2024 10:26 PM CST Notified MD of patient lack of iv access and about patient unwillingness to get another one. Received ok to leave it out for now. [employer] * Kosta Corral APRN-CNP - 10/12/2024 2:18 PM CST Family Notification Documentation Contact made: 10/12/2024 2:18 PM Person(s) contacted: Anamaria Gomez Method of communication: Phone Phone number: [phone] Duration of discussion: 5 minutes Summary of discussion Discussed results of CT C-spine Discussed results of BASKETBALL SCOUT eval 10/11 All questions answered Discussed PT/OT needed and ARU indications All questions answered [employer] * Breana Morrell RD/EMMETT - 10/12/2024 12:34 [...] fractures and wounds.Trauma following. Pt is AxOx1. BASKETBALL SCOUT evaluated on 12/12 with the results of [...] (10/01/242114) LUE Edema: Mild pitting, sligh indentation (10/11/24799) L Hand Edema: Mild pitting, slight indentation [...] with current goal LUIS CARLOS Webber Ascom:[id number] [employer] * Damian Shepard - 10/12/2024 12:29 PM CST Oil Sales [employer] Service Rep greeted family at bedside of patient. Oil Sales And Service Rep engaged the loved ones in conversation and provided a compassionate presence. No spiritual needs at this time. Spiritual care is available 24/7as needed or requested. Damian Shepard 10/12/2024 12:32 PM 836/836b [employer] * Yolanda Juárez COTA - 10/12/2024 10:51 AM CST [facility] Occupational Therapy Progress Note Patient: Lucian Sosa Med Record Number: [id number] Date of : 1940 Age: [age] year [...] sit with moderate assist and X 2 Manager Lsw Goal(s): Patient to discharge to appropriate next [...] with RN in room, all lines/tubes intact. [employer] * Izabel Yoder, PT - 10/12/2024 10:48 AM CST [facility] Physical Therapy Progress Note Patient: Lucian Sosa Med Record Number: [id number] Date of : 1940 Age: [age] year [...] assist with appropriate AD - added 10/08 Manager Lsw Goal(s): Patient to discharge to appropriate next [...] with RN in room, all lines/tubes intact. [employer] * Zofia Arteaga RN - 10/12/2024 8:18 [...] safe and free from injury. Outcome: Progressing [employer] * Kosta Corral R, STRATEGIC INSIGHTS LEAD-TOOTH GRINDER - 10/12/2024 7:02 AM CST Images from [...] division Interval History: 10/12: did not pass BASKETBALL SCOUT for diet 10/11. Activity as tolerated in [...] 100mg TID. 09/24: Patient extubated yesterday to IL. Remains stable on 6L NC. Dobhoff placed [...] discussed with family and extubated patient to IL. 1-2 hours following extubation, patient required escalation to NRB and HFNC, thus re-intubated. Again doing well on vent per ABG and SPO2. Levo weaned to 0.01, precedex increased to 0.09 due to pt pulling at ETT and lines. Graham removed againovernight per nurse customer manager, however pt straight cathed x2 for [...] , INR , PTT in the last 12848 hours. 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 Will inform the oncoming nurse and speech of this [employer] * Kd Lacey SLP - 10/11/2024 2:45 PM CST [facility] Swallow Therapy Patient: Lucian Sosa Med Record Number: [id number] Date of : 1940 Age: [age] year old Impressions: Patient's swallow function reassessed at bedside. Patient completed trial of ice chips, thin liquids and puree. Patient demonstrated consistent s/s of aspiration, including delayed swallow, wet vocal quality and cough and required max cues and encouragement to participate with BASKETBALL SCOUT. ST continues to recommend NPO with TFs [...] Impression - Pharyngeal: Moderate Education/Interventions: While performing BASKETBALL SCOUT, Patient was instructed in: results of swallow [...] oropharyngeal swallow function to warrant diet upgrade. Halfway Goal (s): Patient to be independent/baseline with functional mobility and self care and be able to safely discharge to prior level of care. Kd Munson M.A., [facility]-BASKETBALL SCOUT Speech Language Pathologist [phone] [employer] * Izabel Yoder, PT - 10/11/2024 2:05 PM CST [facility] Physical Therapy Progress Note Patient: Lucian Kenubb Med Record Number: [id number] Date of : 1940 Age: [age] year [...] assist with appropriate AD - added 10/08 Manager Lsw Goal(s): Patient to discharge to appropriate next [...] area, nurse Mary aware and agreeable . [employer] * Yolanda Juárez COTA - 10/11/2024 2:05 PM CST [facility] Occupational Therapy Progress Note Patient: Lucian Sosa Med Record Number: [id number] Date of : 1940 Age: [age] year [...] (don gown in supine) ACTIVITY TOLERANCE: Modified Volga: AM-PAC 6 Clicks Daily Activity Raw Score:: [...] sit with moderate assist and X 2 Manager Lsw Goal(s): Patient to discharge to appropriate next [...] area, nurse Mary aware and agreeable . [employer] * Nakul El MD - 10/11/2024 1:00 PM CST Orthopaedic Spine Surgery Plan of Care Note Lucian Sosa Repeat cervical spine CT reviewed with attending. Demonstrates unchanged alignment from prior imaging study. Continue AAT in a soft collar. Currently has follow up scheduled with Dr. Collier on 11/03/24 Please page with questions Nakul El MD 10/11/2024 1:00 PM [employer] * Alexandria Villa RN - 10/11/2024 10:55 AM CST Images from the original note were not included. Reassessment of sacrococcygeal area, per trauma services, it is a trauma related injury, New photo obtained: Pt may benefit from TRIAD paste and sacral mepilex border daily. Pt is on a Pulsate mattress. He isrolling/scooting all over, difficult to stay repositioned and offloaded. [employer] * She Wells RN - 10/11/2024 10:50 AM CST [...] Address Phone Fax Patient Preferred [facility] (formerly [facility]) Selected Long-Term [address] [facility] [address] [phone] -- [facility] - ACUTE REHAB Pending - Request Sent -- [address] [facility] [phone] [facility] Pending - Request Sent -- [address] [facility] [address] [phone] -- [facility] Pending - Request Sent -- [address] [facility] [address] [phone] -- [facility] Pending - Request Sent -- [address] [facility] [address] [phone] -- [facility]/[place] Pending - Request Sent -- [address] [facility] [address] [phone] -- [facility] Pending - Request Sent -- [address] [facility] [address] [phone] -- [facility] Pending - Request Sent -- [address] [facility] [phone] -- [facility] Pending - No Request Sent -- [address] [phone] -- [facility] [place]. Acute Rehab Pending - No Request Sent -- [address] [facility] [phone] -- Family Support (Name and Phone): Extended Emergency Contact Information Primary Emergency Contact: Anamaria Gomez Mobile Relation: Daughter Secondary Emergency Contact: Lilliam Campbell Mascot Relation: Grandchild Preferred language: East [place]orese Deputy Director Of Finance needed? No Transportation at Discharge: Family:, EMS READMISSION RISK SCORE is 11 at 10:50 AM 10/11/2024.: [email or web address] JEAN BENNETT, MA-Certification, A.D.N, BSN [phone] [employer] * Zofia Arteaga RN - 10/11/2024 8:30 [...] treatment and care. Description: INTERVENTIONS Outcome: Progressing [employer] * Sean Natarajan MD - 10/11/2024 7:42 [...] discussed with family and extubated patient to IL. 1-2 hours following extubation, patient required escalation to NRB and HFNC, thus re-intubated. Again doing well on vent per ABG and SPO2. Levo weaned to 0.01, precedex increased to 0.09 due to pt pulling at ETT and lines. Graham removed againovernight per nurse customer manager, however pt straight cathed x2 for [...] Tigist Guerra F, DO 81 mg at 10/10/24 1002 bisacodyl [...] Intramuscular Immunization - Once Kathy Mendoza APRN-MYRNA oxyCODONE (immediate release) (Roxicodone) tablet 5 mg 5 mg Enteral Tube q6h PRN Francisco Gould MD 5 mg at 10/11/24 0300 Or oxyCODONE (immediate release) (Roxicodone) tablet 2.5 mg 2.5 mg Enteral Tube q6h PRN Francisco Gould MD Pneumococcal Conjugate Vaccine, 20 valent (Prevnar 20; 6wk+) (PCV20) 0.5 mL 0.5 mL Intramuscular Immunization - Once Kathy Mendoza APRN-MYRNA polyethylene glycol 3350 (Miralax) packet 17 g 17 g Enteral Tube QDAY Kathy Mendoza APRN-MYRNA 17 gat 10/10/24 1003 senna (Senokot) tablet 17.2 mg 17.2 mg Enteral Tube QDAY Kathy Mendoza STRATEGIC INSIGHTS LEAD- TOOTH GRINDER 17.2 mg at 10/10/24 1002 tamsulosin (Flomax) capsule 0.4 mg 0.4 mg Enteral Tube QDAY Thang Gaines, DO 0.4 mg at 10/10/24 1002 traZODone (Desyrel) tablet 75 mg 75 mg Enteral Tube AT BEDTIME Tessa Gonzáles PA-C 75 mg at 10/10/242021 vitamin D3 (Cholecalciferol) 25 MCG (1000 UNITS) [...] today. Sean Natarajan MD 10/11/2024 10:12 AM [employer] * Kathy Mendoza, STRATEGIC INSIGHTS LEAD-TOOTH GRINDER - 10/10/2024 12:31 PM CST Trauma Floor [...] 100mg TID. 09/24: Patient extubated yesterday to [place]. Remains stable on 6L NC. Dobhoff placed [...] discussed with family and extubated patient to IL. 1-2 hours following extubation, patient required escalation to NRB and HFNC, thus re-intubated. Again doing well on vent per ABG and SPO2. Levo weaned to 0.01, precedex increased to 0.09 due to pt pulling at ETT and lines. Graham removed againovernight per nurse customer manager, however pt straight cathed x2 for [...] 3 mL Inhalation q6h PRN Kathy Mendoza, STRATEGIC INSIGHTS LEAD-TOOTH GRINDER aspirin chew tablet 81 mg 81 mg [...] Intramuscular Immunization - Once Kathy Mendoza APRN-CNP [START ON 10/11/2024] Meningococcal Serogroup B Vaccine [...] Intramuscular Immunization - Once Kathy Mendoza APRN-CNP polyethylene glycol 3350 (Miralax) packet 17 g 17 g Enteral Tube QDAY Kathy Mendoza APRN-CNP 17 gat 10/10/24 1003 senna (Senokot) tablet 17.2 mg 17.2 mg Enteral Tube QDAY Kathy Mendoza APRN- CNP 17.2 mg at 10/10/24 1002 tamsulosin (Flomax) [...] Barrier to discharge: SNF placement Kathy Mendoza APRN-TOOTH GRINDER 10/10/2024 12:32 PM [employer] Associated attestation - Bong Edmondson MD - 10/11/2024 3:05 PM [employer] Patient seen and examined with the residents. [...] agreement, if implemented Description: INTERVENTIONS Outcome: Progressing [employer] * Zofia Arteaga RN - 10/09/2024 12:21 [...] 1220 by Zofia Arteaga RN Outcome: Progressing [employer] * Zofia Arteaga RN - 10/09/2024 12:20 [...] effective coping strategies Description: INTERVENTIONS Outcome: Progressing [employer] * Kathy Mendoza, STRATEGIC INSIGHTS LEAD-TOOTH GRINDER - 10/09/2024 9:15 AM CST Trauma Floor [...] 100mg TID. 09/24: Patient extubated yesterday to IL. Remains stable on 6L NC. Dobhoff placed [...] discussed with family and extubated patient to IL. 1-2 hours following extubation, patient required escalation to NRB and HFNC, thus re-intubated. Again doing well on vent per ABG and SPO2. Levo weaned to 0.01, precedex increased to 0.09 due to pt pulling at ETT and lines. Graham removed againovernight per nurse customer manager, however pt straight cathed x2 for [...] 3 mL Inhalation q6h PRN Kathy Mendoza, STRATEGIC INSIGHTS LEAD-TOOTH GRINDER aspirin chew tablet 81 mg 81 mg Enteral Tube QDAY Tigist Guerra, DO 81 mg at 10/08/24 0834 bisacodyl [...] patch 2 patch Transdermal q24h Kathy Mendoza, ABDIAZIZ-TOOTH GRINDER 2 patch at112/09/23 0835 melatonin tablet 5 mg 5 mg Enteral Tube AT BEDTIME Tessa Gonzáles PA-C 5 mg at 10/08/242 oxyCODONE (immediate release) (Roxicodone) tablet 5 mg 5 mg Enteral Tube q6h PRN Francisco Gould MD 5 mg at 10/09/24 0116 Or oxyCODONE (immediate release) (Roxicodone) tablet 2.5 mg 2.5 mg Enteral Tube q6h PRN Francisco Gould MD polyethylene glycol 3350 (Miralax) packet 17 g 17 g Enteral Tube QDAY Kathy Mendoza, STRATEGIC INSIGHTS LEAD-TOOTH GRINDER 17 gat 10/07/24 0804 senna (Senokot) tablet 17.2 mg 17.2 mg Enteral Tube QDAY Kathy Mendoza, STRATEGIC INSIGHTS LEAD- TOOTH GRINDER 17.2 mg at 10/07/24 0803 tamsulosin (Flomax) capsule 0.4 mg 0.4 mg Enteral Tube QDAY Thang Gaines DO 0.4 mg at 10/08/24 0834 traZODone (Desyrel) tablet 75 mg 75 mg Enteral Tube AT BEDTIME Tessa Gonzáles PA-C 75 mg at 10/08/242121 vitamin D3 (Cholecalciferol) 25 MCG (1000 UNITS) tablet 1,000 Units 1,000 Units Enteral Tube QDAY Eder, Thang, DO 1,000 Units at 10/08/24 0834 Review [...] Barrier to discharge: SNF placement Kathy Mendoza APRN-TOOTH GRINDER 10/09/2024 2:44 PM [employer] Associated attestation - Bong Edmondson MD - 10/09/2024 4:54 PM [employer] Patient seen and examined with the residents. [...] at 1100, abd binder remains in place. [place] collar pads replaced. Problem: Mechanical Ventilation Goal: [...] injury from restraints Description: INTERVENTIONS: Outcome: Progressing [employer] * Yolanda Juárez COTA - 10/08/2024 12:05 PM CST [facility] Occupational Therapy Progress Note Patient: Lucian Sosa Med Record Number: [id number] Date of : 1940 Age: [age] year [...] (washed face seated EOB) ACTIVITY TOLERANCE: Modified [place]: AM-PAC 6 Clicks Daily Activity Raw Score:: [...] sit with moderate assist and X 2 Halfway Goal(s): Patient to discharge to appropriate next [...] with CP in room, with RN, Beverly Arthur aware, all lines/tubes intact. [employer] * She Wells RN - 10/08/2024 11:12 AM CST Care Coordination Progress Note Expected Discharge Date: 10/08/2024 Discharge Plan: PT/OT recommending rehab. SW is following for placement; will manage referrals, transfer, and transportation when medically ready. Continued Care and Services - Admitted Since 09/13/2024 Destination Service Provider Request Status Selected Services Address Phone Fax Patient Preferred SS [facility] Pending - No Request Sent -- [address] [facility] [phone] -- [facility] - [facility] Pending - No Request Sent -- [address] [facility] [phone] -- [facility] [place]. Acute Rehab Pending - No Request Sent -- [address] [facility] [phone] -- Family Support (Name and Phone): Extended Emergency Contact Information Primary Emergency Contact: Anamaria Gomez Mobile Relation: Daughter Secondary Emergency Contact: Lilliam Campbell Relation: Grandchild Preferred language: [place]orese Deputy Director Of Finance needed? No Transportation at Discharge: Family: EMS READMISSION RISK SCORE is 14 at 11:12 AM 10/08/2024.: [email or web address] JEAN BENNETT MA-Certification, A.D.N, BSN [phone] [employer] * Izabel Yoder, PT - 10/08/2024 10:32 AM CST [facility] Physical Therapy Progress Note Patient: Lucian Sosa Med Record Number: [id number] Date of : 1940 Age: [age] year [...] as Tolerated Spine Precautions: Yes Spine Precautions: [place] OBJECTIVE: At start of therapy session, patient [...] assist with appropriate AD - added 10/08 Halfway Goal(s): Patient to discharge to appropriate next [...] nick lift for transfer back to bed. [employer] * Tessa Gonzáles PA-C - 10/08/2024 8:17 [...] 100mg TID. 09/24: Patient extubated yesterday to IL. Remains stable on 6L NC. Dobhoff placed [...] discussed with family and extubated patient to IL. 1-2 hours following extubation, patient required escalation to NRB and HFNC, thus re-intubated. Again doing well on vent per ABG and SPO2. Levo weaned to 0.01, precedex increased to 0.09 due to pt pulling at ETT and lines. Graham removed againovernight per nurse customer manager, however pt straight cathed x2 for [...] Guerra, DO 81 mg at 10/07/24 0803 bisacodyl (Dulcolax) suppository 10 mg 10 mg Rectal QDAY PRN Tessa Gonzáles PA-C enoxaparin (Lovenox) injection 30 mg 30 mg Subcutaneous q12h Yolanda Crane DO 30 mg at 10/07/24 2108 furosemide (Lasix) tablet 20 mg 20 mg Oral QDAY Tessa Gonzáles PA-C 20 mg at 10/07/24 0804 lidocaine (Lidoderm) 5 % patch 2 patch 2 patch Transdermal q24h Kathy Mendoza APRN-CNP 2 patch at112/08/23 0804 melatonin tablet 5 mg 5 mg Enteral Tube AT BEDTIME Tessa Gonzáles PA-C 5 mg at 10/07/24 210 oxyCODONE (immediate release) (Roxicodone) tablet 5 mg 5 mg Enteral Tube q6h PRN Francisco Gould MD 5 mg at 10/08/24 0254 Or oxyCODONE (immediate release) (Roxicodone) tablet 2.5 mg 2.5 mg Enteral Tube q6h PRN Francisco Gould MD polyethylene glycol 3350 (Miralax) packet 17 g 17 g Enteral Tube QDAY Kathy Mendoza, STRATEGIC INSIGHTS LEAD-TOOTH GRINDER 17 gat 10/07/24 0804 senna (Senokot) tablet 17.2 mg 17.2 mg Enteral Tube QDAY Kathy Mendoza, STRATEGIC INSIGHTS LEAD- TOOTH GRINDER 17.2 mg at 10/07/24 0803 tamsulosin (Flomax) [...] ??C) I/O last 3 completed shifts: In: 2207 [Other:600] Out: 0 Physical Exam General Appearance: [...] placement. Tessa Gonzáles PA-C 10/08/2024 8:18 AM [employer] Associated attestation - Bong Edmondson MD - 10/09/2024 7:41 AM [employer] Patient seen and examined with the residents. [...] Massey MD - 10/08/2024 5:24 AM CST [facility] Daily Progress Note Lucian Sosa, 84 year old, male : 1940 CSN: [id number] Primary Care Physician: No primary care provider [...] results for input(s): INR in the last 20177 hours. Physical Exam General: Not following commands, [...] questions or concerns. Please do not use Ylopo Secure Chat for communications regarding direct patient care. [facility] Orthopedic Surgery office contact information: [facility] at [address], [place] [address] Second Floor [place], [place] [id number] [facility] [address] [place] [address] Asa Massey MD 10/08/2024 5:24 AM [employer] Associated attestation - Keegan Collier MD - 10/08/2024 9:46 AM [employer] Please see the note performed by our [...] is needed from ourteam. Tigist Caceres, MSN, STRATEGIC INSIGHTS LEAD, AGACNP- Palliative Care Nurse Practitioner Office: [phone] Pager: [phone] [employer] * Tessa Rodriguez, PENNY/EMMETT - 10/07/2024 2:09 [...] TF Labs: Recent Labs Component Name 10/06/24 0612 10/02/24 2342 10/02/24 0340 09/14/24 1129 09/14/24 0013 [...] with current goal Tessa Rodriguez RD/EMMETT Ascom:[id number] [employer] * Yolanda Juárez COTA - 10/07/2024 11:25 AM CST [facility] Department of Physical Medicine & Rehabilitation Progress Note Patient: Lucian Sosa Med Record Number: [id number] Date of : 1940 Age: [age] year old 10/07/24 0915 Missed Visit Missed Visit Refused Patient refused therapy intervention due to RN Notified of Refusal Patient not following commands on arrival. Attempted tactile, verbal, painful and cold stimuli. Patient does not respond with any meaningful response. RNMarzena, made aware. 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 [employer] * Izabel Yoder, PT - 10/07/2024 11:25 AM CST [facility] Physical Therapy Progress Note Patient: Lucian Sosa Med Record Number: [id number] Date of : 1940 Age: [age] year [...] as Tolerated Spine Precautions: Yes Spine Precautions: [place] OBJECTIVE: At start of therapy session, patient [...] EOB x10 minutes with fair sitting balance Manager Lsw Goal(s): Patient to discharge to appropriate next [...] all lines/tubes intact, in chair position . [employer] * Izabel Yoder PT - 10/07/2024 9:13 AM CST [facility] Department of Physical Medicine & Rehabilitation Progress Note Patient: Lucian Sosa Med Record Number: [id number] Date of : 1940 Age: [age] year old 10/07/24 0913 Missed Visit Missed Visit Other (Comment) Patient not following commands on arrival. Attempted tactile, verbal, painful and cold stimuli. Patient does not respond with any meaningful response. RN made aware. [employer] * Ivana Santamaria RN - 10/07/2024 9:07 [...] more.: Never true Name: Ivana Santamaria RN [employer] * Tessa Gonzáles PA-C - 10/07/2024 8:48 [...] discussed with family and extubated patient to IL. 1-2 hours following extubation, patient required escalation to NRB and HFNC, thus re-intubated. Again doing well on vent per ABG and SPO2. Levo weaned to 0.01, precedex increased to 0.09 due to pt pulling at ETT and lines. Graham removed againovernight per nurse customer manager, however pt straight cathed x2 for [...] 3 mL Inhalation q6h PRN Kathy Mendoza, STRATEGIC INSIGHTS LEAD-TOOTH GRINDER aspirin chew tablet 81 mg 81 mg Enteral Tube QDAY Tigist Guerra DO 81 mg at 10/07/24 0803 enoxaparin (Lovenox) injection 30 mg 30 mg Subcutaneous q12h Yolanda Crane DO 30 mg at 10/07/24 0804 furosemide (Lasix) tablet 20 mg 20 mg Oral QDAY Tessa Gonzáles PA-C 20 mg at 10/07/24 0804 lidocaine (Lidoderm) 5 % patch 2 patch 2 patch Transdermal q24h Kathy Mendoza, STRATEGIC INSIGHTS LEAD-TOOTH GRINDER 2 patch at112/08/23 0804 melatonin tablet 5 [...] 17 g Enteral Tube QDAY Kathy Mendoza, STRATEGIC INSIGHTS LEAD-TOOTH GRINDER 17 gat 10/07/24 0804 senna (Senokot) tablet 17.2 mg 17.2 mg Enteral Tube QDAY Kathy Mendoza, STRATEGIC INSIGHTS LEAD- TOOTH GRINDER 17.2 mg at 10/07/24 0803 tamsulosin (Flomax) [...] placement. Tessa Gonzáles PA-C 10/07/2024 8:48 AM [employer] Associated attestation - Bong Edmondson MD - 10/07/2024 3:08 PM [employer] Patient seen and examined with the residents. [...] Lucian Sosa Age: [age] year old Room: 836/836b Date Admitted: 09/13/2024 Interval History: Patient seen [...] 107 110* 108* 110* 107 - CO2 24 28 - BUN 28* - CREATININE 0.66* 0.51* 0.50* 0.45* 0.56* - GLUCOSE 107* 133* 124* 138* 144* - CALCIUM 8.8 8.8 8.5 8.5 8.2* - MAGNESIUM 2.4 - - 2.4 2.3 - PHOS 4.0 - - 3.3 - 3.1 Coags No results for input(s): PT , INR , PTT in the last 99568 hours. Vitamin D Recent Labs Component Name 09/14/24 0013 [id number] 17.9* Vitals BP 112/63 (BP Location: Left [...] please contact Ortho Trauma APPs or send Ibelem chat to PATRIC. For urgent questions, please page Ortho Trauma service pager through eSentire. To avoid delays in communication and patient care, please do not use [employer] Secure Chat. Patient will require follow up in the office with Dr. Roldan 2 week(s) after discharge. Ortho office staff to help arrange. Please notify Ortho Trauma PATRIC when patient is ready for discharge. Patient should have XR pelvis, left scapula at follow up. Contact information below: [facility] Office Schedulers: [phone], option 1 Francisco Garcia MD 10/07/2024 6:14 AM [employer] Associated attestation - She Roldan MD - 10/11/2024 8:40 AM [employer] ATTENDING ADDENDUM: Patient discussed during rounds. I confirm the history, physical exam, assessment and plan. Please see resident note for further details. She Roldan MD 10/11/2024 8:40 AM * Charlene Milligan MSW - 10/06/2024 4:03 PM CST Social Work Progress Note Discharge Plan Disposition: SNF Transportation: Transportation at discharge: Family Anticipated Discharge Date: 10/07/2024 Contacts: Extended Emergency Contact Information Primary Emergency Contact: Anamaria Gomez Mobile Relation: Daughter Secondary Emergency Contact: [facility] Relation: Grandchild Preferred language: [place]orese Deputy Director Of Finance needed? No Comments: SW attempted to call daughter for SNF preferences, as previous SW sent ARU referrals. PT OT recommends SNF. SW left VM and callback number. Pt still in restraints. Name/Phone number: EASTON Espinoza [phone] [employer] * Orlando Grimes RN - 10/06/2024 12:03 PM CST Care Coordination Progress Note Expected Discharge Date: 10/06/2024 Discharge Plan: SNF recommended for this patient. CM will continue to follow Family Support (Name and Phone): Extended Emergency Contact Information Primary Emergency Contact: Anamaria Gomez Mobile Relation: Daughter Secondary Emergency Contact: [facility] Relation: Grandchild Preferred language: [place]se Deputy Director Of Finance needed? No Transportation at Discharge: Family: READMISSION RISK SCORE is 14 at 12:03 PM 10/06/2024.: Name: Orlando Grimes RN [employer] * Kathy Mendoza, STRATEGIC INSIGHTS LEAD-TOOTH GRINDER - 10/06/2024 8:21 AM CST Trauma Floor [...] discussed with family and extubated patient to IL. 1-2 hours following extubation, patient required escalation to NRB and HFNC, thus re-intubated. Again doing well on vent per ABG and SPO2. Levo weaned to 0.01, precedex increased to 0.09 due to pt pulling at ETT and lines. Graham removed againovernight per nurse customer manager, however pt straight cathed x2 for [...] QDAY Tigist Guerra, DO 81 mg at 10/05/24 0953 enoxaparin (Lovenox) injection 30 mg 30 mg Subcutaneous q12h Yolanda Crane DO 30 mg at 10/05/24 2111 fentaNYL [...] mg Intravenous post-OP multiple NamaryemChris Anes Asst lidocaine (Lidoderm) 5 % patch 2 patch 2 patch Transdermal q24h Kathy Mendoza APRN-TOOTH GRINDER 2 patch at112/06/23 0953 melatonin tablet 5 [...] QDAY Thang Gaines, DO 0.4 mg at 10/05/24952 traZODone (Desyrel) tablet 75 mg 75 mg Enteral Tube AT BEDTIME Tessa Gonzáles PA-C 75 mg at 10/05/242111 vitamin D3 (Cholecalciferol) 25 MCG (1000 UNITS) tablet 1,000 Units 1,000 Units Enteral Tube QDAY Thang Gaines, DO 1,000 Units at 10/05/24 0953 Review [...] in am Serum creatinine: 0.66 mg/dL (L) 10/06/24611 Estimated [...] started, wean restraints, SNF placement Kathy Mendoza APRN-TOOTH GRINDER 10/06/2024 8:44 AM [employer] Associated attestation - Bong Edmondson MD - 10/07/2024 3:08 PM [employer] Patient seen and examined with the residents. Please see note for further details. Patient's lab values and radiology images noted in this report were personally reviewed by me with my interpretations as below, unless otherwise indicated. I confirm history, exam, assessment and plan, except where it may differ from my own as stated below. Bong Edmondson MD * Nilsa Mckeon RN - 10/05/2024 4:56 PM CST Postop blood sugar=76, notified Dr Mayfield, received order for 12.5mg D50, order implemented and rechecked blood mgfls=817. Condition update provided to Dr Mayfield, received okay to transfer out of PACU, will implement. [employer] * Kristen Gregory OT - 10/05/2024 4:24 PM CST [facility] Rehabilitation Occupational Therapy Progress Note Patient: Lucian Sosa Med Record Number: [id number] Date of : 1940 Age: [age] year [...] bearing) Activity Level: Activity as Tolerated (in [place]) Spine Precautions: Yes Spine Precautions: [place] SUBJECTIVE: Subjective: Patient agreeable to treatment session, [...] sit with moderate assist and X 2 Manager Lsw Goal(s): Patient to discharge to appropriate next [...] with family in room, all lines/tubes intact. [employer] * Charlene Milligan MSW - 10/05/2024 4:11 PM CST SW following pt for SNF acceptance. Pt will need insurance auth. Charlene Munson [phone] [employer] * Bong Edmondson MD - 10/05/2024 2:09 PM CST Plan for OR today for percutaneous endoscopic gastrostomy tube placement. Bong Edmondson MD [employer] * Jeanine Orozco PT - 10/05/2024 2:05 PM CST [facility] Department of Physical Medicine & Rehabilitation Progress Note Patient: Lucian Sosa Med Record Number: [id number] Date of : 1940 Age: [age] year old 10/05/24 1405 Missed Visit Missed Visit Other (Comment) Attempted PT session with OT. Pt drowsy with minimal command following/participation. OT proceeded with bed level session. Will cont to follow. [employer] * Tesha Jimenez RD/NABOR - 10/05/2024 1:10 [...] wound to lower leg Estimated Needs: KCAL: 9049-8378 (25-30kcal/kg (ABW)) Protein (g): 85-110g (1.0-1.3g/kg (ABW)) [...] (10/01/242114) RLE Edema: Mild pitting, slight indentation (10/01/24 0400) R Foot Edema: Non-pitting (10/01/242114) LLE Edema: [...] Progress: Continue with current goal [id number] [employer] * Tessa Gonzáles PA-C - 10/05/2024 8:16 [...] 100mg TID. 09/24: Patient extubated yesterday to IL. Remains stable on 6L NC. Dobhoff placed [...] discussed with family and extubated patient to IL. 1-2 hours following extubation, patient required escalation to NRB and HFNC, thus re-intubated. Again doing well on vent per ABG and SPO2. Levo weaned to 0.01, precedex increased to 0.09 due to pt pulling at ETT and lines. Graham removed againovernight per nurse customer manager, however pt straight cathed x2 for [...] QDAY Tigist Guerra, DO 81 mg at 10/04/24 0805 enoxaparin [...] patch 2 patch Transdermal q24h Kathy Mendoza, STRATEGIC INSIGHTS LEAD-TOOTH GRINDER 2 patch at112/05/23 0951 oxyCODONE (immediate release) [...] restraints. Tessa Gonzáles PA-C 10/05/2024 8:16 AM [employer] Associated attestation - Bong Edmondson MD - 10/05/2024 6:13 PM [employer] Patient seen and examined with the residents. [...] injury from restraints Description: INTERVENTIONS: Outcome: Progressing [employer] * Rock Aldridge MSW - 10/04/2024 4:28 PM CST Social Work Progress Note MAGALI spoke to PainterAnamaria (Daughter) [phone] and she would like to discuss her options for rehab in [place] as well as [place] for now. SW will email her a list to [email or web address] and she will give a decision on tomorrow. MAGALI will continue to follow up for any further discharge needs. Discharge Plan Disposition: Transportation (if ambulance rationale): Transportation at discharge: Family Anticipated Discharge Date: 10/06/2024 Contacts: Extended Emergency Contact Information Primary Emergency Contact: Anamaria Gomez Mobile Relation: Daughter Secondary Emergency Contact: [facility] Relation: Grandchild Preferred language: [place]orese Deputy Director Of Finance needed? No Have they been contacted? Name/Phone number: EASTON Diaz [phone] [employer] * Orlando Grimes RN - 10/04/2024 2:53 PM CST Care Coordination Progress Note Expected Discharge Date: 10/06/2024 Discharge Plan: ARU is recommended. Patient is not medically ready at this time. CM will continue to follow patient for any additional discharge needs Family Support (Name and Phone): Extended Emergency Contact Information Primary Emergency Contact: Anamaria Gomez Mobile Relation: Daughter Secondary Emergency Contact: [facility] Relation: Grandchild Preferred language: [place]orese Deputy Director Of Finance needed? No Transportation at Discharge: Family: READMISSION RISK SCORE is 14 at 2:53 PM 10/04/2024.: Name: Orlando Grimes RN [employer] * Kd Marin RN - 10/04/2024 12:38 PM CST [facility] Rehab Update: Pt is being reviewed by [facility] Rehab for acceptance pending insurance authorization and medical stability. Will send for auth once all medical tests and procedures have been completed. Will continue to monitor for medical stability and participation in therapies. Thank you for the referral. Woody Marin Clincal Liaison. APOLONIA HOWELL, RN [facility] [email or web address] Preferred method of communication: Epic Chat [employer] * Tracy Rico - 10/04/2024 12:04 PM CST [employer] Sales [employer] met with pt during rounds; he is not alert and oriented but I spoke to him and prayed withhim for healing and peace. Pastoral care support remains available 19/05. 628/ Tracy Rico, Board Certified Oil Sales And Service Rep For Follow Up: 6 [facility] Oil Sales And Service Rep: [id number] On-Call Oil Sales And Service Rep: [id number] [employer] * Kd Lacey, CARLENE - 10/04/2024 11:45 AM CST [facility] Swallow Therapy Patient: Lucian Sosa Med Record Number: [id number] Date of : 1940 Age: [age] year [...] Impression - Pharyngeal: Severe Education/Interventions: While performing BASKETBALL SCOUT, Patient was instructed in: results of swallow [...] oropharyngeal swallow function to warrant diet upgrade. Manager Lsw Goal (s): Patient to be independent/baseline with functional mobility and self care and be able to safely discharge to prior level of care. Kd Munson M.A., SHAYNA-BASKETBALL SCOUT Speech Language Pathologist [phone] [employer] * Lilliam Nicholson APRN-MYRNA - 10/04/2024 8:32 AM CST Orthopaedic Spine [...] Department of Orthopaedic Surgery 8:32 AM 10/04/2024 [employer] * Kathy Mendoza APRN-CNP - 10/04/2024 8:29 [...] 100mg TID. 09/24: Patient extubated yesterday to [place]. Remains stable on 6L NC. Dobhoff placed [...] discussed with family and extubated patient to [place]. 1-2 hours following extubation, patient required escalation to NRB and HFNC, thus re-intubated. Again doing well on vent per ABG and SPO2. Levo weaned to 0.01, precedex increased to 0.09 due to pt pulling at ETT and lines. Graham removed againovernight per nurse customer manager, however pt straight cathed x2 for [...] QDAY Tigist Guerra, DO 81 mg at 10/04/24 0805 enoxaparin [...] Luis Eugene MD 17 g at112/05/23 08 QUEtiapine (SEROquel) tablet 12.5 mg 12.5 mg Enteral Tube AT BEDTIME Tessa Gonzáles PA-C 12.5 mg at112/04/23 212 sodium chloride (Inhalant) 7 % nebulizer solution 4 mL 4 mL Inhalation BID Tessa Gonzáles PA-C 4 mLat 10/03/24 204 tamsulosin (Flomax) capsule 0.4 mg 0.4 mg Enteral Tube QDAY Thang Gaines DO 0.4 mg at 10/04/24 0805 traZODone (Desyrel) tablet 50 mg 50 mg Oral AT BEDTIME Tessa Gonzáles PA-C 50 mg at 10/03/24 2124 vitamin D3 (Cholecalciferol) 25 MCG (1000 UNITS) tablet 1,000 Units 1,000 Units Enteral Tube QDAY Thang Gaines DO 1,000 Units at 10/04/24 0805 [...] prn Serum creatinine: 0.51 mg/dL (L) 10/02/24 234 Estimated creatinine clearance: 111 mL/min (A) Recent [...] TP fracture -Ospine consulted - AAT in [place] - uprights when able -Uprights performed, need [...] uprights, restart TF after OR Kathy Mendoza APRN-TOOTH GRINDER 10/04/2024 6:58 PM [employer] Associated attestation - Bong Edmondson MD - 10/05/2024 6:12 PM [employer] Patient seen and examined with the residents. [...] safe consumption of daily meals Outcome: Progressing [employer] * Tessa Gonzáles PA-C - 10/03/2024 8:27 [...] discussed with family and extubated patient to [place]. 1-2 hours following extubation, patient required escalation to NRB and HFNC, thus re-intubated. Again doing well on vent per ABG and SPO2. Levo weaned to 0.01, precedex increased to 0.09 due to pt pulling at ETT and lines. Graham removed againovernight per nurse customer manager, however pt straight cathed x2 for [...] q4h Tigist Guerra DO 3 mL at 10/03/24 0423 aspirin [...] mL Inhalation BID Tessa Gonzáles PA-C 4 mL at 10/02/242027 tamsulosin (Flomax) capsule 0.4 mg 0.4 mg Enteral Tube QDAY Thang Gaines, DO 0.4 mg at 10/03/24816 traZODone (Desyrel) tablet 50 mg 50 mg Oral AT BEDTIME Tessa Gonzáles PA-C 50 mg at 10/02/242044 vitamin D3 (Cholecalciferol) 25 MCG (1000 UNITS) tablet 1,000 Units 1,000 Units Enteral Tube QDThang Srivastava, DO 1,000 Units at 10/03/24816 Review of [...] TP fracture -Ospine consulted - AAT in [place] - uprights when able -Uprights performed, need [...] eval. Tessa Gonzáles PA-C 10/03/2024 8:28 AM [employer] Associated attestation - Yasmin Milligan MD - 10/03/2024 8:06 PM [employer] I saw and evaluated the patient on the date of service. I discussed the plan of care with the resident. I reviewed all relevant labs, rads myself. Agree with note, except as documented here. Yasmin Milligan MD 10/03/2024 8:06 PM * Shandra Alvarado, BASKETBALL SCOUT - 10/02/2024 4:12 PM CST 10/02/24 1600 Missed Visit Missed Visit (sched conflict, with other discipline at time visit attempted) [employer] * Yasmin Milligan MD - 10/02/2024 12:53 PM CST Some intermittent shortness of breath, but same 4L NC compared to yest. Same interaction as yesterday per TIRE SHOP MANAGER. CXR actually improved from 09/28. WBC improved although still elevated. Minimally working with PT. Still in restraints. Will increase to q2hr vitals with cont pulse ox. Will follow closely with serial exams. He is frail and elderly and at high risk of decompensation. Yasmin Milligan MD 10/02/2024 12:56 PM [employer] * Tessa Gonzáles PA-C - 10/02/2024 9:11 [...] discussed with family and extubated patient to [place]. 1-2 hours following extubation, patient required escalation to NRB and HFNC, thus re-intubated. Again doing well on vent per ABG and SPO2. Levo weaned to 0.01, precedex increased to 0.09 due to pt pulling at ETT and lines. Graham removed againovernight per nurse customer manager, however pt straight cathed x2 for [...] q4h Tigist Guerra, DO 3 mL at 10/02/24 0842 aspirin chew tablet 81 mg 81 mg Enteral Tube QDAY Tigist Guerra, DO 81 mg at 10/01/24 1040 enoxaparin [...] QDAY Thang Gaines, DO 0.4 mg at 10/01/24 1040 traZODone (Desyrel) tablet 50 mg 50 mg Oral AT BEDTIME Tessa Gonzáles PA-C 50 mg at 10/01/24 214 vitamin D3 (Cholecalciferol) 25 MCG (1000 UNITS) tablet 1,000 Units 1,000 Units Enteral Tube QDAY Thang Gaines, DO 1,000 Units at 10/01/24 1040 Review [...] 09/30/24 0125 POTASSIUM 4.4 5.1* 4.3 CO2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 09/30/2024 1:32 AM [employer] Gibran Grande PA-C LAB - CHEMISTRY O RDERABLES [address] [address], [facility] [phone] * PHOSPHORUS BLOOD (09/30/2024 12:34 AM [employer]) Phosphorus 3.1 2.8 - 5.1 mg/dL 09/30/2024 1:14 AM [facility] Blood BLOOD SPECIMEN / Unknown Venipuncture / Unknown 09/30/2024 12:34 AM [employer] 09/30/2024 12:40 AM [employer] Gibran Grande PA-C LAB - CHEMISTRY O RDERABLES [address] [address], [facility] [phone] * (ABNORMAL) CBC W/O DIFFERENTIAL (09/30/2024 12:34 AM [employer]) WBC 15.7(H) 4.0 - 10.7 x10E9/L 09/30/2024 1:26 AM [facility] RBC Count 2.79(L) 4.30 - 5.80 x10E12/L 09/30/2024 1:26 AM [facility] Hemoglobin 8.5(L) 13.3 - 17.5 g/dL 09/30/2024 1:26 AM [facility] Hematocrit 26.7(L) 38.7 - 51.1 % 09/30/2024 1:26 AM [facility] MCV 95.7 80.0 - 98.0 fL 09/30/2024 1:26 AM [facility] MCH 30.5 26.7 - 33.6 pg 09/30/2024 1:26 AM [facility] MCHC 31.8 31.7 - 36.3 g/dL 09/30/2024 1:26 AM [facility] RDW-CV 18.3(H) 11.3 - 14.8 % 09/30/2024 1:26 AM [facility] Platelet Count 09/30/2024 1:26 AM [facility] Comment:Platelets clumped on slide but appears adequate. Recommend repeat with a sodium citrate blue top tube. MPV 09/30/2024 1:26 AM [facility] Comment:Unable to report NRBC 0.5(H) <=0.0 /100 WBC 09/30/2024 1:26 AM [facility] Blood BLOOD SPECIMEN / Unknown Venipuncture / Unknown 09/30/2024 12:34 AM [employer] 09/30/2024 12:40 AM [employer] Gibran Grande PA-C LAB - HEMATOLOGY ORDERABLES Performing Organization Address City/[facility]/ZIP Co de Phone Number [address] [address], [employer] [phone] * (ABNORMAL) CALCIUM IONIZED WHOLE BLOOD (09/30/2024 12:34 AM [employer]) Calcium Ionized 0.98 mmol/L 09/30/2024 12:41 AM [facility] pH 7.56(H) 7.35 - 7.45 pH 09/30/2024 12:41 AM [facility] Ionized Calcium pH Adjusted 1.05(L) 1.19 - 1.34 mmol/L 09/30/2024 12:41 AM [facility] Blood BLOOD SPECIMEN / Unknown Venipuncture / Unknown 09/30/2024 12:34 AM [employer] 09/30/2024 12:38 AM [employer] Gibran Grande PA-C LAB - CHEMISTRY O RDERABLES [address] [address], [place] [phone] * XR Pelvis Judet Views (09/29/2024 5:00 PM [employer]) Anatomical Region Laterality Modality Pelvis Digital Radiogra phy 09/30/2024 9:51 AM [employer] Narrative 09/30/2024 11:26 AM [employer] PROCEDURE: ??XR PELVIS JUDET VIEWS, XR PELVIS AP W INLET OUTLET DATE/TIME OF EXAM: ??09/29/2024 5:45 PM CLINICAL INFORMATION: None relevant/not provided if blank. Indication: S32.9XXA: Closed displaced fracture of pelvis, unspecified part of pelvis, initial encounter ([facility]) Additional History: ADDITIONAL CLINICAL INFORMATION: Ordering Provider Reason For Exam: ??- B/L pubic root fx extending to anterior tab - L inferior pubic ramus - L Sacral ala fx (accession [id number]), - B/L pubic root fx extending to anterior tab (accession [id number]) COMPARISON: X-ray pelvis 09/21/2024. TECHNIQUE: AP and [...] intact. > Dictated by Manjula Bruno MD, (doctor of radiology). I, Pratima Haynes MD have personally reviewed [...] of pelvis, unspecifiedpart of pelvis, initial encounter ([facility]) Additional History: ADDITIONAL CLINICAL INFORMATION: Ordering Provider Reason For Exam: - B/L pubic root fx extending to anterior tab - L inferior pubic ramus - L Sacral ala fx (accession [id number]), - B/L pubic root fx extending to anterior tab (accession [id number]) COMPARISON: X-ray pelvis 09/21/2024. TECHNIQUE: AP and [...] intact. > Dictated by Manjula Bruno MD, (doctor of radiology). I, Pratima Haynes MD have personally reviewed and interpreted this examination/study. > Interpreting Provider: Pratima Haynes MD on 09/30/2024 11:26 AM Gabriela Perales PA-C DIAGNOSTIC IMAGING ORDERABLES * XR Pelvis AP W Inlet Outlet (09/29/2024 5:00 PM [employer]) Anatomical Region Laterality Modality Pelvis Digital Radiogra phy 09/30/2024 9:51 AM [employer] Narrative 09/30/2024 11:26 AM [employer] PROCEDURE: ??XR PELVIS JUDET VIEWS, XR PELVIS AP W INLET OUTLET DATE/TIME OF EXAM: ??09/29/2024 5:45 PM CLINICAL INFORMATION: None relevant/not provided if blank. Indication: S32.9XXA: Closed displaced fracture of pelvis, unspecified part of pelvis, initial encounter ([facility]) Additional History: ADDITIONAL CLINICAL INFORMATION: Ordering Provider Reason For Exam: ??- B/L pubic root fx extending to anterior tab - L inferior pubic ramus - L Sacral ala fx (accession [id number]), - B/L pubic root fx extending to anterior tab (accession [id number]) COMPARISON: X-ray pelvis 09/21/2024. TECHNIQUE: AP and [...] intact. > Dictated by Manjula Bruno MD, (doctor of radiology). Pratima Casey MD have personally reviewed and interpreted this examination/study. > Interpreting Provider: Pratima Haynes MD on 09/30/2024 11:26 AM Procedure Note Pratima Haynes MD - 09/30/2024 PROCEDURE: XR PELVIS JUDET VIEWS, XR PELVIS AP W INLET OUTLET DATE/TIME OF EXAM: 09/29/2024 5:45 PM CLINICAL INFORMATION: None relevant/not provided if blank. Indication: S32.9XXA: Closed displaced fracture of pelvis, unspecifiedpart of pelvis, initial encounter ([facility]) Additional History: ADDITIONAL CLINICAL INFORMATION: Ordering Provider Reason For Exam: - B/L pubic root fx extending to anterior tab - L inferior pubic ramus - L Sacral ala fx (accession [id number]), - B/L pubic root fx extending to anterior tab (accession [id number]) COMPARISON: X-ray pelvis 09/21/2024. TECHNIQUE: AP and [...] intact. > Dictated by Manjula Bruno MD, (doctor of radiology). Pratima Casey MD have personally reviewed and interpreted this examination/study. > Interpreting Provider: Pratima Haynes MD on 09/30/2024 11:26 AM Gabriela Perales PA-C DIAGNOSTIC IMAGING ORDERABLES * XR Scapula Left (09/29/2024 5:00 PM [employer]) Anatomical Region Laterality Modality Upper Extremity Digital Radiogra phy 09/30/2024 10:0 4 AM [employer] Impressions 09/30/2024 11:47 AM [employer] IMPRESSION: Unchanged in alignment of superior scapular fracture. > Dictated by Manjula Bruno MD, (doctor of radiology). Pratima Casey MD have personally reviewed and interpreted this examination/study. > Interpreting Provider: Pratima Haynes MD on 09/30/2024 11:47 AM Narrative 09/30/2024 11:47 AM [employer] PROCEDURE: ??XR SCAPULA LEFT DATE/TIME OF EXAM: [...] fracture. > Dictated by Manjula Bruno MD, (doctor of radiology). Pratima Casey MD have personally reviewed and interpreted this examination/study. > Interpreting Provider: Pratima Haynes MD on 09/30/2024 11:47 AM Gabriela Perales PA-C DIAGNOSTIC IMAGING ORDERABLES * XR Chest 1Vw Portable (09/29/2024 4:29 AM [employer]) Anatomical Region Laterality Modality Chest Digital Radiogra phy 09/29/2024 9:33 AM [employer] Narrative 09/29/2024 11:33 PM [employer] EXAMINATION: XR CHEST 1VW PORTABLE DATE/TIME OF EXAM: ??09/29/2024 4:29 AM, LOCATION ??[facility] HISTORY: S22.43XA: Multiple fractures of ribs, [...] obscured. Report dictated by Valerio Mckay DO, (Surgical Attendant). Layo Casey MD have personally reviewed and interpreted this examination/study. > Interpreting Provider: Layo Adhikari MD on 09/29/2024 11:33 PM Procedure Note Layo Adhikari MD - 09/29/2024 EXAMINATION: XR CHEST 1VW PORTABLE DATE/TIME OF EXAM: 09/29/2024 4:29 AM, LOCATION [facility] HISTORY: S22.43XA: Multiple fractures of ribs, [...] obscured. Report dictated by Valerio Mckay DO (Surgical Attendant). Layo Casey MD have personally reviewed and interpreted this examination/study. > Interpreting Provider: Layo Adhikari MD on 09/29/2024 11:33 PM Kendal Demarco MD DIAGNOSTIC IMAGING O RDERABLES * PHOSPHORUS BLOOD (09/29/2024 12:18 AM [employer]) Phosphorus 3.3 2.8 - 5.1 mg/dL 09/29/2024 1:00 AM [facility] Blood BLOOD SPECIMEN / Unknown Venipuncture / Unknown 09/29/2024 12:18 AM [employer] 09/29/2024 12:32 AM [employer] Gibran Grande PA-C LAB - CHEMISTRY O RDERABLES Performing Organization Address City/[facility]/ZIP Co de Phone Number [address] [address], [facility] [phone] * MAGNESIUM BLOOD (09/29/2024 12:18 AM [employer]) Magnesium 2.4 1.6 - 2.6 mg/dL 09/29/2024 1:00 AM [facility] Blood BLOOD SPECIMEN / Unknown Venipuncture / Unknown 09/29/2024 12:18 AM [employer] 09/29/2024 12:32 AM [employer] Gibran Grande PA-C LAB - CHEMISTRY O RDERABLES [address] [address], [facility] [phone] * (ABNORMAL) CBC W/O DIFFERENTIAL (09/29/2024 12:18 AM [employer]) WBC 21.0(H) 4.0 - 10.7 x10E9/L 09/29/2024 1:46 AM [facility] RBC Count 2.80(L) 4.30 - 5.80 x10E12/L 09/29/2024 1:46 AM [facility] Hemoglobin 8.5(L) 13.3 - 17.5 g/dL 09/29/2024 1:46 AM [facility] Hematocrit 27.3(L) 38.7 - 51.1 % 09/29/2024 1:46 AM [facility] MCV 97.5 80.0 - 98.0 fL 09/29/2024 1:46 AM [facility] MCH 30.4 26.7 - 33.6 pg 09/29/2024 1:46 AM [facility] MCHC 31.1(L) 31.7 - 36.3 g/dL 09/29/2024 1:46 AM [facility] RDW-CV 17.7(H) 11.3 - 14.8 % 09/29/2024 1:46 AM [facility] Platelet Count 1,318(HH) 150 - 420 x10E9/L 09/29/2024 1:46 AM [facility] MPV 10.0 7.8 - 11.4 fL 09/29/2024 1:46 AM [facility] NRBC 0.5(H) <=0.0 /100 WBC 09/29/2024 1:46 AM [facility] Blood BLOOD SPECIMEN / Unknown Venipuncture / Unknown 09/29/2024 12:18 AM [employer] 09/29/2024 12:32 AM [employer] Gibran Grande PA-C LAB - HEMATOLOGY ORDERABLES Performing Organization Address [facility]/State/[facility] Co de Phone Number [facility] [address] [place] [phone], [facility] [phone] * (ABNORMAL) CALCIUM IONIZED WHOLE BLOOD (09/29/2024 12:18 AM [employer]) Calcium Ionized 1.15 mmol/L 09/29/2024 12:47 AM [facility] pH 7.40 7.35 - 7.45 pH 09/29/2024 12:47 AM [facility] Ionized Calcium pH Adjusted 1.15(L) 1.19 - 1.34 mmol/L 09/29/2024 12:47 AM [facility] Blood BLOOD SPECIMEN / Unknown Venipuncture / Unknown 09/29/2024 12:18 AM [employer] 09/29/2024 12:28 AM [employer] Gibran Grande PA-C LAB - CHEMISTRY O RDERABLES [facility] [address] [place] [address], [facility] [phone] * (ABNORMAL) BASIC METABOLIC PANEL (CALCIUM TOTAL) (09/29/2024 12:18 AM [employer]) BUN 24 7 - 26 mg/dL 09/29/2024 1:00 AM [facility] Creatinine 0.56(L) 0.71 - 1.16 mg/dL 09/29/2024 1:00 AM [facility] Sodium 145 136 - 145 mmol/L 09/29/2024 1:00 AM [facility] Potassium 4.3 3.5 - 4.5 mmol/L 09/29/2024 1:00 AM [facility] Chloride 107 98 - 107 mmol/L 09/29/2024 1:00 AM [facility] CO2 29 22 - 29 mmol/L 09/29/2024 1:00 AM [facility] Glucose 151(H) 70 - 99 mg/dL 09/29/2024 1:00 AM [facility] Calcium 8.0(L) 8.4 - 10.2 mg/dL 09/29/2024 1:00 AM [facility] Anion Gap 9 6 - 16 09/29/2024 1:00 AM [facility] BUN/Creatinine Ratio 43(H) 7 - 23 09/29/2024 1:00 AM [facility] Osmolality Calculated 307(H) 275 - 295 mOsm/kg 09/29/2024 1:00 AM [facility] eGFR by CKD-EPI >90 >=90 mL/min/1.7 3 m2 09/29/2024 1:00 AM [facility] Blood BLOOD SPECIMEN / Unknown Venipuncture / Unknown 09/29/2024 12:18 AM [employer] 09/29/2024 12:32 AM [employer] Gibran Grande PA-C LAB - CHEMISTRY O RDERABLES [facility] [address] [place] [address], [facility] [phone] * XR Chest 1Vw Portable (09/28/2024 5:46 AM [employer]) Anatomical Region Laterality Modality Chest Digital Radiogra phy 09/28/2024 8:58 AM [employer] Narrative 09/28/2024 3:45 PM [employer] PROCEDURE: ??XR CHEST 1VW PORTABLE, DATE/TIME OF EXAM: ??09/28/2024 5:46 AM, LOCATION ??[facility] INDICATION: Z97.8: Endotracheal tube present ADDITIONAL [...] obscured. Report dictated by Alex Huizar MD, (Surgical Attendant). IMaryanne MD have personally reviewed and interpreted this examination/study. > Interpreting Provider: Maryanne Horner MD on 09/28/2024 3:45 PM Procedure Note Maryanne Horner MD - 09/28/2024 PROCEDURE: XR CHEST 1VW PORTABLE, DATE/TIME OF EXAM: 09/28/2024 5:46AM, LOCATION [facility] INDICATION: Z97.8: Endotracheal tube present ADDITIONAL [...] obscured. Report dictated by Alex Huizar MD, (Surgical Attendant). I, Maryanne Horner MD have personally reviewed and interpreted this examination/study. > Interpreting Provider: Maryanne Horner MD on 09/28/2024 3:45 PM Kendal Demarco MD DIAGNOSTIC IMAGING O RDERABLES * PHOSPHORUS BLOOD (09/27/2024 11:35 PM [employer]) Phosphorus 3.8 2.8 - 5.1 mg/dL 09/28/2024 12:13 AM [employer] [facility] Blood BLOOD SPECIMEN / Unknown Venipuncture / Unknown 09/27/2024 11:35 PM [employer] 09/27/2024 11:48 PM [employer] Gibran Grande PA-C LAB - CHEMISTRY O RDERABLES [address] [address], [facility] [phone] * MAGNESIUM BLOOD (09/27/2024 11:35 PM [employer]) Magnesium 2.2 1.6 - 2.6 mg/dL 09/28/2024 12:13 AM [employer] [facility] Blood BLOOD SPECIMEN / Unknown Venipuncture / Unknown 09/27/2024 11:35 PM [employer] 09/27/2024 11:48 PM [employer] Gibran Grande PA-C LAB - CHEMISTRY O RDERABLES [address] [address], [facility] [phone] * (ABNORMAL) CBC W/O DIFFERENTIAL (09/27/2024 11:35 PM [employer]) WBC 22.2(H) 4.0 - 10.7 x10E9/L 09/28/2024 12:05 AM [facility] RBC Count 2.85(L) 4.30 - 5.80 x10E12/L 09/28/2024 12:05 AM [facility] Hemoglobin 8.8(L) 13.3 - 17.5 g/dL 09/28/2024 12:05 AM [facility] Hematocrit 27.6(L) 38.7 - 51.1 % 09/28/2024 12:05 AM [facility] MCV 96.8 80.0 - 98.0 fL 09/28/2024 12:05 AM [facility] MCH 30.9 26.7 - 33.6 pg 09/28/2024 12:05 AM [facility] MCHC 31.9 31.7 - 36.3 g/dL 09/28/2024 12:05 AM [facility] RDW-CV 18.2(H) 11.3 - 14.8 % 09/28/2024 12:05 AM [facility] Platelet Count 1,328(HH) 150 - 420 x10E9/L 09/28/2024 12:05 AM [facility] MPV 9.9 7.8 - 11.4 fL 09/28/2024 12:05 AM [facility] NRBC 0.8(H) <=0.0 /100 WBC 09/28/2024 12:05 AM [facility] Blood BLOOD SPECIMEN / Unknown Venipuncture / Unknown 09/27/2024 11:35 PM [employer] 09/27/2024 11:48 PM [employer] Gibran Grande PA-C LAB - HEMATOLOGY ORDERABLES [facility] [address] [place] [phone] [phone] * (ABNORMAL) CALCIUM IONIZED WHOLE BLOOD (09/27/2024 11:35 PM [employer]) Calcium Ionized 1.17 mmol/L 09/27/2024 11:50 PM [facility] pH 7.42 7.35 - 7.45 pH 09/27/2024 11:50 PM [facility] Ionized Calcium pH Adjusted 1.18(L) 1.19 - 1.34 mmol/L 09/27/2024 11:50 PM [facility] Blood BLOOD SPECIMEN / Unknown Venipuncture / Unknown 09/27/2024 11:35 PM [employer] 09/27/2024 11:47 PM [employer] Gibran Grande PA-C LAB - CHEMISTRY O RDERABLES [facility] [address] [place] [address], [facility] [phone] * (ABNORMAL) BASIC METABOLIC PANEL (CALCIUM TOTAL) (09/27/2024 11:35 PM [employer]) BUN 22 7 - 26 mg/dL 09/28/2024 12:13 AM [facility] Creatinine 0.63(L) 0.71 - 1.16 mg/dL 09/28/2024 12:13 AM [facility] Sodium 143 136 - 145 mmol/L 09/28/2024 12:13 AM [facility] Potassium 4.5 3.5 - 4.5 mmol/L 09/28/2024 12:13 AM [facility] Chloride 110(H) 98 - 107 mmol/L 09/28/2024 12:13 AM [facility] CO2 27 22 - 29 mmol/L 09/28/2024 12:13 AM [facility] Glucose 95 70 - 99 mg/dL 09/28/2024 12:13 AM [facility] Calcium 8.4 8.4 - 10.2 mg/dL 09/28/2024 12:13 AM [facility] Anion Gap 6 6 - 16 09/28/2024 12:13 AM [facility] BUN/Creatinine Ratio 35(H) 7 - 23 09/28/2024 12:13 AM [facility] Osmolality Calculated 299(H) 275 - 295 mOsm/kg 09/28/2024 12:13 AM [facility] eGFR by CKD-EPI >90 >=90 mL/min/1.7 3 m2 09/28/2024 12:13 AM [employer] [facility] Blood BLOOD SPECIMEN / Unknown Venipuncture / Unknown 09/27/2024 11:35 PM [employer] 09/27/2024 11:48 PM [employer] Gibran Grande PA-C LAB - CHEMISTRY O RDERABLES Performing Organization Address [facility] Co de Phone Number [facility] [address] [phone], [facility] [phone] * EKG 12-LEAD (09/27/2024 8:49 AM [employer]) Ventricular Rate 148 BPM [facility] Atrial Rate 296 BPM [facility] QRS Duration ms 78 ms [facility] Q-T Interval ms 334 ms [facility] QTC Calculation (Bezet) 524 ms [facility] Calculated P [place] 103 degrees [facility] Calculated R [place] -33 degrees [facility] Calculated T [place] 118 degrees [facility] Interpretation EKG ATRIAL FLUTTER WITH 2:1 A-V CONDUCTION LEFT AXIS DEVIATION NONSPECIFIC ST AND T WAVE ABNORMALITY ABNORMAL ECG WHEN COMPARED WITH ECG OF 25-SEP-2024 16:26, atrial flutter has replaced sinus rhythm Confirmed by MAGALY CHE DO ([id number]) on 09/28/2024 3:21:12 PM [facility] 09/27/2024 8:49 AM [employer] 09/28/2024 3:21 PM [employer] Kendal Demarco MD ECG ORDERABLES Performing Organization Address City/[facility]/ZIP Co de Phone Number [facility] * (ABNORMAL) BLOOD GASES ART + COOX PANEL (09/27/2024 6:21 AM [employer]) pH Arterial 7.45 7.35 - 7.45 pH 09/27/2024 6:31 AM [facility] pO2 Arterial 73(L) 80 - 100 mmHg 09/27/2024 6:31 AM [facility] pCO2 Arterial 39 35 - 45 mmHg 6:31 AM [facility] HCO3 Arterial 27.1 20.0 - 30.0 mmol/L 09/27/2024 6:31 AM [facility] BE Arterial 2.9(H) -2.0 - 2.0 mmol/L 09/27/2024 6:31 AM [facility] Oxyhemoglobin Arterial 94.1 % 09/27/2024 6:31 AM [facility] Dexoyhemoglobin (HHB) % 2.9 % 09/27/2024 6:31 AM [facility] Methemoglobin 1.4 0.0 - 2.0 % 09/27/2024 6:31 AM [facility] Carboxyhemoglobin 1.6 0.0 - 2.0 % 2023 6:31 AM [facility] O2 Content Arterial 12.3 Interpret within clinical context ml/dL 09/27/2024 6:31 AM [facility] Hemoglobin by COOX 9.2(L) 12.0 - 17.6 g/dL 09/27/2024 6:31 AM [facility] O2 Saturation Arterial 97 90 - 100 % 09/27/2024 6:31 AM [facility] FI O2 Arterial 90.0 % 09/27/2024 6:31 AM [facility] Blood, arterial ARTERIAL BLOOD SPECIMEN / Unknown Arterial Puncture / Unknown 09/27/2024 6:21 AM [employer] 09/27/2024 6:29 AM [facility] - 09/27/2024 6:31 AM [facility] Carboxyhemoglobin Normal Concentration: Non-smokers: 0-2%; Smokers: 0-9%; Toxic: >20% Kendal Demarco MD LAB - BLOOD GASES OR DERABLES [facility] [address] [place] [id number], [facility] [phone] * PHOSPHORUS BLOOD (09/27/2024 12:18 AM [facility]) Phosphorus 2.9 2.8 - 5.1 mg/dL 09/27/2024 12:56 AM [facility] Blood BLOOD SPECIMEN / Unknown Venipuncture / Unknown 09/27/2024 12:18 AM [employer] 09/27/2024 12:30 AM [employer] Gibran Grande PA-C LAB - CHEMISTRY O RDERABLES [address] [address], [facility] [phone] * MAGNESIUM BLOOD (09/27/2024 12:18 AM [employer]) Magnesium 2.3 1.6 - 2.6 mg/dL 09/27/2024 12:56 AM [facility] Blood BLOOD SPECIMEN / Unknown Venipuncture / Unknown 09/27/2024 12:18 AM [employer] 09/27/2024 12:30 AM [employer] Gibran Grande PA-C LAB - CHEMISTRY O RDERABLES Performing Organization Address [facility]/ZIP Co de Phone Number [address] [address], [facility] [phone] * (ABNORMAL) CBC W/O DIFFERENTIAL (09/27/2024 12:18 AM [employer]) WBC 24.4(H) 4.0 - 10.7 x10E9/L 09/27/2024 12:55 AM [facility] RBC Count 2.83(L) 4.30 - 5.80 x10E12/L 09/27/2024 12:55 AM [facility] Hemoglobin 8.5(L) 13.3 - 17.5 g/dL 09/27/2024 12:55 AM [facility] Hematocrit 27.1(L) 38.7 - 51.1 % 09/27/2024 12:55 AM [facility] MCV 95.8 80.0 - 98.0 fL 09/27/2024 12:55 AM [facility] MCH 30.0 26.7 - 33.6 pg 09/27/2024 12:55 AM [facility] MCHC 31.4(L) 31.7 - 36.3 g/dL 09/27/2024 12:55 AM [facility] RDW-CV 17.7(H) 11.3 - 14.8 % 09/27/2024 12:55 AM [facility] Platelet Count 1,331(HH) 150 - 420 x10E9/L 09/27/2024 12:55 AM [facility] MPV 10.0 7.8 - 11.4 fL 09/27/2024 12:55 AM [facility] NRBC 1.1(H) <=0.0 /100 WBC 09/27/2024 12:55 AM [facility] Blood BLOOD SPECIMEN / Unknown Venipuncture / Unknown 09/27/2024 12:18 AM [employer] 09/27/2024 12:30 AM [employer] Gibran Grande PA-C LAB - HEMATOLOGY ORDERABLES Performing Organization Address City/[place] Hospital/ZIP Co de Phone Number [address] [address], [employer] [phone] * (ABNORMAL) CALCIUM IONIZED WHOLE BLOOD (09/27/2024 12:18 AM [employer]) Calcium Ionized 1.15 mmol/L 09/27/2024 12:28 AM [facility] pH 7.44 7.35 - 7.45 pH 09/27/2024 12:28 AM [facility] Ionized Calcium pH Adjusted 1.17(L) 1.19 - 1.34 mmol/L 09/27/2024 12:28 AM [facility] Blood BLOOD SPECIMEN / Unknown Venipuncture / Unknown 09/27/2024 12:18 AM [employer] 09/27/2024 12:23 AM [employer] Gibran Grande PA-C LAB - CHEMISTRY O RDERABLES [address] [address], [place] [phone] * (ABNORMAL) BASIC METABOLIC PANEL (CALCIUM TOTAL) (09/27/2024 12:18 AM [employer]) BUN 24 7 - 26 mg/dL 09/27/2024 12:56 AM [facility] Creatinine 0.56(L) 0.71 - 1.16 mg/dL 09/27/2024 12:56 AM [facility] Sodium 145 136 - 145 mmol/L 09/27/2024 12:56 AM [facility] Potassium 4.7(H) 3.5 - 4.5 mmol/L 09/27/2024 12:56 AM [facility] Chloride 111(H) 98 - 107 mmol/L 09/27/2024 12:56 AM [facility] CO2 25 22 - 29 mmol/L 09/27/2024 12:56 AM [facility] Glucose 108(H) 70 - 99 mg/dL 09/27/2024 12:56 AM [facility] Calcium 8.0(L) 8.4 - 10.2 mg/dL 09/27/2024 12:56 AM [facility] Anion Gap 9 6 - 16 09/27/2024 12:56 AM [facility] BUN/Creatinine Ratio 43(H) 7 - 23 09/27/2024 12:56 AM [facility] Osmolality Calculated 305(H) 275 - 295 mOsm/kg 09/27/2024 12:56 AM [facility] eGFR by CKD-EPI >90 >=90 mL/min/1.7 3 m2 09/27/2024 12:56 AM [facility] Blood BLOOD SPECIMEN / Unknown Venipuncture / Unknown 09/27/2024 12:18 AM [employer] 09/27/2024 12:30 AM [employer] Gibran Grande PA-C LAB - CHEMISTRY O RDERABLES [facility] [address] [place] [address], [facility] [phone] * XR Chest 1Vw Portable (09/26/2024 10:29 PM [employer]) Anatomical Region Laterality Modality Chest Digital Radiogra phy 09/27/2024 7:23 AM [employer] Narrative 09/28/2024 11:36 AM [employer] PROCEDURE: ??XR CHEST 1VW PORTABLE DATE/TIME OF [...] intact. Report dictated by Manjula Bruno MD, (Surgical Attendant). Maryanne Casey MD have personally reviewed and [...] intact. Report dictated by Manjula Bruno MD, (Surgical Attendant). Maryanne Casey MD have personally reviewed and interpreted this examination/study. > Interpreting Provider: Maryanne Horner MD on 09/28/2024 11:36 AM Kendal Demarco MD DIAGNOSTIC IMAGING O RDERABLES * (ABNORMAL) BLOOD GASES ART + COOX PANEL (09/26/2024 10:25 PM [facility]) pH Arterial 7.45 7.35 - 7.45 pH 09/26/2024 10:40 PM [facility] pO2 Arterial 69(L) 80 - 100 mmHg 09/26/2024 10:40 PM [facility] pCO2 Arterial 40 35 - 45 mmHg 10:40 PM [facility] HCO3 Arterial 27.8 20.0 - 30.0 mmol/L 09/26/2024 10:40 PM [facility] BE Arterial 3.5(H) -2.0 - 2.0 mmol/L 09/26/2024 10:40 PM [facility] Oxyhemoglobin Arterial 93.9 % 09/26/2024 10:40 PM [facility] Dexoyhemoglobin (HHB) % 2.2 % 09/26/2024 10:40 PM [facility] Methemoglobin 1.4 0.0 - 2.0 % 09/26/2024 10:40 PM [facility] Carboxyhemoglobin 2.4(H) 0.0 - 2.0 % 2023 10:40 PM [facility] O2 Content Arterial 11.4 Interpret within clinical context ml/dL 09/26/2024 10:40 PM [facility] Hemoglobin by COOX 8.6(L) 12.0 - 17.6 g/dL 09/26/2024 10:40 PM [facility] O2 Saturation Arterial 98 90 - 100 % 09/26/2024 10:40 PM [facility] FI O2 Arterial 70.0 % 09/26/2024 10:40 PM [facility] Blood, arterial ARTERIAL BLOOD SPECIMEN / Unknown Arterial Puncture / Unknown 09/26/2024 10:25 PM [employer] 09/26/2024 10:29 PM [facility] - 09/26/2024 10:40 PM [employer] Carboxyhemoglobin Normal Concentration: Non-smokers: 0-2%; Smokers: 0-9%; Toxic: >20% Kendal Demarco MD LAB - BLOOD GASES OR DERABLES [facility] [address] [place] [address], [facility] [phone] * XR Chest 1Vw Portable (09/26/2024 5:08 PM [employer]) Anatomical Region Laterality Modality Chest Digital Radiogra phy 09/27/2024 7:12 AM [employer] Narrative 09/27/2024 2:19 PM [employer] PROCEDURE: ??XR CHEST 1VW PORTABLE, DATE/TIME OF EXAM: ??09/26/2024 5:08 PM, LOCATION ??[facility] INDICATION: T14.90XA: Trauma ADDITIONAL CLINICAL INFORMATION: Ordering Provider Reason For Exam: ??increasing oxygen requirements COMPARISON: Chest x-ray 09/15/2024 FINDINGS/IMPRESSION: Removal of the endotracheal tube. Enteric tube courses below the diaphragm and out of the [id number]. Left-sided rib plating is present. Overlying surgical skin avila of a left-sided thoracotomy. Unchanged airspace opacities. Small left pleural effusion. No enlarged pneumothorax. The cardiomediastinal silhouette is partially obscured. > Dictated by Valerio Mckay DO (Surgical Attendant), 09/27/2024 7:15 AM. IMaryanne MD have personally reviewed and interpreted this examination/study. > Interpreting Provider: Maryanne Horner MD on 09/27/2024 2:19 PM Procedure Note Maryanne Horner MD - 09/27/2024 PROCEDURE: XR CHEST 1VW PORTABLE, DATE/TIME OF EXAM: 09/26/2024 5:08PM, LOCATION [facility] INDICATION: T14.90XA: Trauma ADDITIONAL CLINICAL INFORMATION: Ordering Provider Reason For Exam: increasing oxygen requirements COMPARISON: Chest x-ray 09/15/2024 FINDINGS/IMPRESSION: Removal of the endotracheal tube. Enteric tube courses below thediaphragm and out of the [id number]. Left-sided rib plating is present.Overlying surgical skin avila of a left-sided thoracotomy. Unchanged airspace opacities. Small left pleural effusion. No enlarged pneumothorax. The cardiomediastinal silhouette is partially obscured. > Dictated by Valerio Mckay DO (Surgical Attendant), 09/27/2024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 Triston Wilson LAB - BLOOD BANK ORDERABLES [facility] [address] [place] [address], [facility] [phone] * XR Chest 1Vw Portable (09/16/2024 1:47 PM [employer]) Anatomical Region Laterality Modality Chest Digital Radiogra phy 09/16/2024 2:59 PM [employer] Narrative 09/16/2024 6:26 PM [employer] PROCEDURE: ??XR CHEST 1VW PORTABLE DATE/TIME OF [...] emphysema. Report dictated by Manjula Bruno MD, (Surgical Attendant). IOlivia MD have personally reviewed and interpreted [...] emphysema. Report dictated by Manjula Bruno MD, (Surgical Attendant). I, Olivia Polanco MD have personally reviewed and interpreted this examination/study. > Interpreting Provider: Olivia Polanco MD on 09/16/2024 6:26 PM Kendal Demarco MD DIAGNOSTIC IMAGING O RDERABLES * LACTIC ACID BLOOD (09/16/2024 12:35 PM [employer]) Lactic Acid-Stat 0.9 <=2.0 mmol/L 09/16/2024 1:19 PM [employer] [facility] Blood BLOOD SPECIMEN / Unknown Venipuncture / Unknown 09/16/2024 12:35 PM [employer] [facility] 09/16/2024 12:48 PM [employer] Kendal Demarco MD LAB - CHEMISTRY YUAN JI [address] [address], [facility] [phone] * (ABNORMAL) CALCIUM IONIZED WHOLE BLOOD (09/16/2024 12:35 PM [employer]) Calcium Ionized 1.27 mmol/L 09/16/2024 12:43 PM [employer] [facility] pH 7.34(L) 7.35 - 7.45 pH 09/16/2024 12:43 PM [employer] Ionized Calcium pH Adjusted 1.24 1.19 - 1.34 mmol/L 09/16/2024 12:43 PM [employer] Blood BLOOD SPECIMEN / Unknown Venipuncture / Unknown 09/16/2024 12:35 PM [employer] 09/16/2024 12:40 PM [employer] Gibran Grande PA-C LAB - CHEMISTRY O RDERAFRANCISCO Performing Organization Address City/[facility]/ZIP Co de Phone Number [address] [address], [place] [phone] * PHOSPHORUS BLOOD (09/16/2024 12:35 PM [employer]) Phosphorus 4.0 2.8 - 5.1 mg/dL 09/16/2024 1:21 PM [employer] [facility] Blood BLOOD SPECIMEN / Unknown Venipuncture / Unknown 09/16/2024 12:35 PM [employer] 09/16/2024 12:48 PM [employer] Gibran Grande PA-C LAB - CHEMISTRY O RDERABLES [address] [address], [place] [phone] * MAGNESIUM BLOOD (09/16/2024 12:35 PM [employer]) Magnesium 1.9 1.6 - 2.6 mg/dL 09/16/2024 1:18 PM [facility] Blood BLOOD SPECIMEN / Unknown Venipuncture / Unknown 09/16/2024 12:35 PM [employer] 09/16/2024 12:48 PM [employer] Gibran Grande PA-C LAB - CHEMISTRY O RDERABLES Performing Organization Address City/[facility] Co de Phone Number [facility] [address] [place] [id number] [phone] * (ABNORMAL) CBC W/O DIFFERENTIAL (09/16/2024 12:35 PM [employer]) Pathologist [facility] WBC 10.7 4.0 - 10.7 x10E9/L 09/16/2024 12:58 PM [facility] RBC Count 2.84(L) 4.30 - 5.80 x10E12/L 09/16/2024 12:58 PM [facility] Hemoglobin 8.5(L) 13.3 - 17.5 g/dL 09/16/2024 12:58 PM [facility] Hematocrit 26.0(L) 38.7 - 51.1 % 09/16/2024 12:58 PM [facility] MCV 91.5 80.0 - 98.0 fL 09/16/2024 12:58 PM [facility] MCH 29.9 26.7 - 33.6 pg 09/16/2024 12:58 PM [facility] MCHC 32.7 31.7 - 36.3 g/dL 09/16/2024 12:58 PM [facility] RDW-CV 15.9(H) 11.3 - 14.8 % 09/16/2024 12:58 PM [facility] Platelet Count 117(L) 150 - 420 x10E9/L 09/16/2024 12:58 PM [facility] MPV 10.5 7.8 - 11.4 fL 09/16/2024 12:58 PM [facility] Blood BLOOD SPECIMEN / Unknown Venipuncture / Unknown 09/16/2024 12:35 PM [employer] 09/16/2024 12:48 PM [employer] Gibran Grande PA-C LAB - HEMATOLOGY ORDERABLES [facility] [address] [place] [address], [facility] [phone] * (ABNORMAL) BLOOD GASES ART + COOX PANEL (09/16/2024 12:35 PM [employer]) pH Arterial 7.34(L) 7.35 - 7.45 pH 09/16/2024 12:43 PM [facility] pO2 Arterial 92 80 - 100 mmHg 09/16/2024 12:43 PM [facility] pCO2 Arterial 44 35 - 45 mmHg 12:43 PM [facility] HCO3 Arterial 23.7 20.0 - 30.0 mmol/L 09/16/2024 12:43 PM [facility] BE Arterial -2.0 -2.0 - 2.0 mmol/L 09/16/2024 12:43 PM [facility] Oxyhemoglobin Arterial 95.7 % 09/16/2024 12:43 PM [facility] Dexoyhemoglobin (HHB) % 1.5 % 09/16/2024 12:43 PM [facility] Methemoglobin 0.9 0.0 - 2.0 % 09/16/2024 12:43 PM [facility] Carboxyhemoglobin 1.9 0.0 - 2.0 % 2023 12:43 PM [facility] O2 Content Arterial 12.3 Interpret within clinical context ml/dL 09/16/2024 12:43 PM [facility] [facility] Hemoglobin by COOX 9.0(L) 12.0 - 17.6 g/dL 09/16/2024 12:43 PM [facility] O2 Saturation Arterial 99 90 - 100 % 09/16/2024 12:43 PM [facility] FI O2 Arterial 50.0 % 09/16/2024 12:43 PM [facility] Blood, arterial ARTERIAL BLOOD SPECIMEN / Unknown Arterial Puncture / Unknown 09/16/2024 12:35 PM [facility] 09/16/2024 12:40 PM [facility] - 09/16/2024 12:43 PM [employer] Carboxyhemoglobin Normal Concentration: Non-smokers: 0-2%; Smokers: 0-9%; Toxic: >20% Gibran Murillo Harjinder KHAN LAB - BLOOD GASES ORDERABLES [facility] [address] [place] [address], [facility] [phone] * (ABNORMAL) BASIC METABOLIC PANEL (CALCIUM TOTAL) (09/16/2024 12:35 PM [employer]) BUN 14 7 - 26 mg/dL 09/16/2024 1:18 PM [facility] Creatinine 0.72 0.71 - 1.16 mg/dL 09/16/2024 1:18 PM [facility] Sodium 140 136 - 145 mmol/L 09/16/2024 1:18 PM [facility] Potassium 4.3 3.5 - 4.5 mmol/L 09/16/2024 1:18 PM [facility] Chloride 111(H) 98 - 107 mmol/L 09/16/2024 1:18 PM [facility] CO2 24 22 - 29 mmol/L 09/16/2024 1:18 PM [facility] Glucose 96 70 - 99 mg/dL 09/16/2024 1:18 PM [facility] Calcium 8.3(L) 8.4 - 10.2 mg/dL 09/16/2024 1:18 PM [facility] Anion Gap 5(L) 6 - 16 09/16/2024 1:18 PM [facility] BUN/Creatinine Ratio 19 7 - 23 09/16/2024 1:18 PM [facility] Osmolality Calculated 290 275 - 295 mOsm/kg 09/16/2024 1:18 PM [facility] eGFR by CKD-EPI >90 >=90 mL/min/1.7 3 m2 09/16/2024 1:18 PM [facility] Blood BLOOD SPECIMEN / Unknown Venipuncture / Unknown 09/16/2024 12:35 PM [employer] 09/16/2024 12:48 PM [employer] Gibran Grande PA-C LAB - CHEMISTRY O RDERABLES [facility] [address] [place] [address], [place] [phone] * TRANSFUSE RED BLOOD CELL LEUKOREDUCED UNIT(S) (09/16/2024 11:39 AM [employer]) Triston Maldonado Asst NURSING - BLOOD PROD TRANSFUSION * (ABNORMAL) BLOOD GAS+COOX+LYTES+METAB ARTERIAL POCT (09/16/2024 11:02 AM [employer]) pH Arterial 7.38 7.35 - 7.45 pH 09/16/2024 11:02 AM [facility] pO2 Arterial 146(H) 80 - 100 mmHg 09/16/2024 11:02 AM [facility] pCO2 Arterial 43 35 - 45 mmHg 11:02 AM [facility] HCO3 Arterial 25.4 20.0 - 30.0 mmol/L 09/16/2024 11:02 AM [facility] BE Arterial 0.2 -2.0 - 2.0 mmol/L 09/16/2024 11:02 AM [facility] Oxyhemoglobin Arterial 97.7 % 09/16/2024 11:02 AM [facility] Dexoyhemoglobin (HHB) % <1.0 % 09/16/2024 11:02 AM [facility] Methemoglobin <0.8 0.0 - 2.0 % 09/16/2024 11:02 AM [facility] Carboxyhemoglobin 1.3 0.0 - 2.0 % 2023 11:02 AM [facility] Comment:Carboxyhemoglobin No rmal Concentration: Non-smokers: 0-2%; Smokers: 0- 9%; Toxic: >20% O2 Content Arterial 9.1 Interpret within clinical context ml/dL 09/16/2024 11:02 AM [facility] Hemoglobin by COOX 6.4(L) 12.0 - 17.6 g/dL 09/16/2024 11:02 AM [facility] O2 Saturation Arterial 99 90 - 100 % 09/16/2024 11:02 AM [facility] Sodium Whole Blood 136 135 - 145 mmol/L 09/16/2024 11:02 AM [facility] Potassium Whole Blood 4.1 3.5 - 5.5 mmol/L 09/16/2024 11:02 AM [facility] Chloride WB 110(H) 78 - 107 mmol/L 09/16/2024 11:02 AM [facility] Calcium Ionized 1.17 mmol/L 11:02 AM [facility] Ionized Calcium pH Adjusted 1.16(L) 1.19 - 1.34 mmol/L 09/16/2024 11:02 AM [facility] Anion Gap (AG) Arterial 5(L) 6 - 16 mmol/L 09/16/2024 11:02 AM [facility] Glucose WB 101(H) 70 - 99 mg/dL 09/16/2024 11:02 AM [facility] Lactic Acid Whole Blood 0.7 <=2.0 mmol/L 09/16/2024 11:02 AM [facility] Blood, arterial ARTERIAL BLOOD SPECIMEN / Unknown 09/16/2024 11:02 AM [facility] 09/16/2024 11:03 AM [facility] Kendal Demarco MD LAB - POINT OF CARE ORDERABLES [facility] [address] [place] [address], [facility] [phone] * (ABNORMAL) BLOOD GAS+COOX+LYTES+METAB ARTERIAL POCT (09/16/2024 9:29 AM [facility]) pH Arterial 7.33(L) 7.35 - 7.45 pH 09/16/2024 9:29 AM [facility] pO2 Arterial 136(H) 80 - 100 mmHg 09/16/2024 9:29 AM [facility] pCO2 Arterial 46(H) 35 - 45 mmHg 9:29 AM [facility] HCO3 Arterial 24.3 20.0 - 30.0 mmol/L 09/16/2024 9:29 AM [facility] BE Arterial -1.7 -2.0 - 2.0 mmol/L 09/16/2024 9:29 AM [facility] Oxyhemoglobin Arterial 96.9 % 09/16/2024 9:29 AM [facility] Dexoyhemoglobin (HHB) % <1.0 % 09/16/2024 9:29 AM [facility] Methemoglobin 1.2 0.0 - 2.0 % 09/16/2024 9:29 AM [facility] Carboxyhemoglobin 1.4 0.0 - 2.0 % 2023 9:29 AM [facility] Comment:Carboxyhemoglobin No rmal Concentration: Non-smokers: 0-2%; Smokers: 0- 9%; Toxic: >20% O2 Content Arterial 11.9 Interpret within clinical context ml/dL 09/16/2024 9:29 AM [facility] Hemoglobin by COOX 8.5(L) 12.0 - 17.6 g/dL 09/16/2024 9:29 AM [facility] O2 Saturation Arterial 100 90 - 100 % 09/16/2024 9:29 AM [facility] Sodium Whole Blood 136 135 - 145 mmol/L 09/16/2024 9:29 AM [facility] Potassium Whole Blood 3.9 3.5 - 5.5 mmol/L 09/16/2024 9:29 AM [facility] Chloride WB 110(H) 78 - 107 mmol/L 09/16/2024 9:29 AM [facility] Calcium Ionized 1.19 mmol/L 9:29 AM [facility] Ionized Calcium pH Adjusted 1.16(L) 1.19 - 1.34 mmol/L 09/16/2024 9:29 AM [facility] Anion Gap (AG) Arterial 2(L) 6 - 16 mmol/L 09/16/2024 9:29 AM [facility] Glucose WB 104(H) 70 - 99 mg/dL 09/16/2024 9:29 AM [facility] Lactic Acid Whole Blood 0.6 <=2.0 mmol/L 09/16/2024 9:29 AM [facility] Blood, arterial ARTERIAL BLOOD SPECIMEN / Unknown 09/16/2024 9:29 AM [employer] [facility] 09/16/2024 9:30 AM [facility] Kendal Demarco MD LAB - POINT OF CARE ORDERABLES [facility] [address] [place] [address], [facility] [phone] * (ABNORMAL) BLOOD GAS+COOX+LYTES+METAB ARTERIAL POCT (09/16/2024 8:12 AM [facility]) pH Arterial 7.34(L) 7.35 - 7.45 pH 09/16/2024 8:12 AM [facility] pO2 Arterial 168(H) 80 - 100 mmHg 09/16/2024 8:12 AM [facility] pCO2 Arterial 46(H) 35 - 45 mmHg 8:12 AM [facility] HCO3 Arterial 24.8 20.0 - 30.0 mmol/L 09/16/2024 8:12 AM [facility] BE Arterial -1.0 -2.0 - 2.0 mmol/L 09/16/2024 8:12 AM [facility] Oxyhemoglobin Arterial 98.1 % 09/16/2024 8:12 AM [facility] Dexoyhemoglobin (HHB) % <1.0 % 09/16/2024 8:12 AM [facility] Methemoglobin <0.8 0.0 - 2.0 % 09/16/2024 8:12 AM [facility] Carboxyhemoglobin 1.2 0.0 - 2.0 % 2023 8:12 AM [facility] Comment:Carboxyhemoglobin No rmal Concentration: Non-smokers: 0-2%; Smokers: 0- 9%; Toxic: >20% O2 Content Arterial 12.1 Interpret within clinical context ml/dL 09/16/2024 8:12 AM [facility] Hemoglobin by COOX 8.5(L) 12.0 - 17.6 g/dL 09/16/2024 8:12 AM [facility] O2 Saturation Arterial 100 90 - 100 % 09/16/2024 8:12 AM [facility] Sodium Whole Blood 136 135 - 145 mmol/L 09/16/2024 8:12 AM [facility] Potassium Whole Blood 4.0 3.5 - 5.5 mmol/L 09/16/2024 8:12 AM [facility] Chloride WB 109(H) 78 - 107 mmol/L 09/16/2024 8:12 AM [facility] Calcium Ionized 1.18 mmol/L 8:12 AM [facility] Ionized Calcium pH Adjusted 1.15(L) 1.19 - 1.34 mmol/L 09/16/2024 8:12 AM [facility] Anion Gap (AG) Arterial 2(L) 6 - 16 mmol/L 09/16/2024 8:12 AM [facility] Glucose WB 102(H) 70 - 99 mg/dL 09/16/2024 8:12 AM [facility] Lactic Acid Whole Blood 0.8 <=2.0 mmol/L 09/16/2024 8:12 AM [facility] Blood, arterial ARTERIAL BLOOD SPECIMEN / Unknown 09/16/2024 8:12 AM [employer] 09/16/2024 8:13 AM [employer] Kendal Demarco MD LAB - POINT OF CARE ORDERABLES Performing Organization Address City/[facility]/ZIP Co de Phone Number [address] [address], [facility] [phone] * BLOOD GAS ART+LYTES+METAB+COOX POC NOTIF (09/16/2024 8:10 AM [employer]) Comment Notification Label Only - See Separate Report 09/16/2024 9:30 AM [facility] Other MISCELLANEOUS SAMPLES / Unknown 09/16/2024 8:10 AM [employer] 09/16/2024 8:11 AM [employer] Kendal Demarco MD LAB - BLOOD GASES OR DERABLES [address] [address], [facility] [phone] * LACTIC ACID BLOOD (09/16/2024 12:10 AM [employer]) Lactic Acid-Stat 0.9 <=2.0 mmol/L 09/16/2024 1:00 AM [facility] Blood BLOOD SPECIMEN / Unknown Venipuncture / Unknown 09/16/2024 12:10 AM [employer] 09/16/2024 12:29 AM [employer] Kendal Demarco MD LAB - CHEMISTRY YUAN JI [address] [address], [facility] [phone] * (ABNORMAL) CALCIUM IONIZED WHOLE BLOOD (09/16/2024 12:10 AM [employer]) Calcium Ionized 1.16 mmol/L 09/16/2024 12:32 AM [facility] pH 7.43 7.35 - 7.45 pH 09/16/2024 12:32 AM [facility] Ionized Calcium pH Adjusted 1.17(L) 1.19 - 1.34 mmol/L 09/16/2024 12:32 AM [facility] Blood BLOOD SPECIMEN / Unknown Venipuncture / Unknown 09/16/2024 12:10 AM [employer] 09/16/2024 12:26 AM [employer] Gibran Grande PA-C LAB - CHEMISTRY O RDERAFRANCISCO [facility] [address] [place] [phone], [facility] [phone] * (ABNORMAL) PHOSPHORUS BLOOD (09/16/2024 12:10 AM [employer]) Phosphorus 2.5(L) 2.8 - 5.1 mg/dL 09/16/2024 1:01 AM [facility] Blood BLOOD SPECIMEN / Unknown Venipuncture / Unknown 09/16/2024 12:10 AM [employer] 09/16/2024 12:31 AM [employer] Gibran Grande PA-C LAB - CHEMISTRY O RDERABLES [address] [address], [facility] [phone] * MAGNESIUM BLOOD (09/16/2024 12:10 AM [employer]) Magnesium 2.0 1.6 - 2.6 mg/dL 09/16/2024 1:01 AM [facility] Blood BLOOD SPECIMEN / Unknown Venipuncture / Unknown 09/16/2024 12:10 AM [employer] 09/16/2024 12:31 AM [employer] Gibran Grande PA-C LAB - CHEMISTRY O PENNYERABLES Performing Organization Address [facility]/ZIP Co de Phone Number [address] [address], [facility] [phone] * (ABNORMAL) CBC W/O DIFFERENTIAL (09/16/2024 12:10 AM [employer]) WBC 12.1(H) 4.0 - 10.7 x10E9/L 09/16/2024 12:43 AM [facility] RBC Count 2.83(L) 4.30 - 5.80 x10E12/L 09/16/2024 12:43 AM [facility] Hemoglobin 8.5(L) 13.3 - 17.5 g/dL 09/16/2024 12:43 AM [facility] Hematocrit 25.5(L) 38.7 - 51.1 % 09/16/2024 12:43 AM [facility] MCV 90.1 80.0 - 98.0 fL 09/16/2024 12:43 AM [facility] MCH 30.0 26.7 - 33.6 pg 09/16/2024 12:43 AM [facility] MCHC 33.3 31.7 - 36.3 g/dL 09/16/2024 12:43 AM [facility] RDW-CV 16.6(H) 11.3 - 14.8 % 09/16/2024 12:43 AM [facility] Platelet Count 129(L) 150 - 420 x10E9/L 09/16/2024 12:43 AM [facility] MPV 10.4 7.8 - 11.4 fL 09/16/2024 12:43 AM [facility] Blood BLOOD SPECIMEN / Unknown Venipuncture / Unknown 09/16/2024 12:10 AM [employer] 09/16/2024 12:31 AM [facility] Gibran Grande PA-C LAB - HEMATOLOGY ORDERABLES [facility] [address] [place] [address], [facility] [phone] * (ABNORMAL) BLOOD GASES ART + COOX PANEL (09/16/2024 12:10 AM [employer]) pH Arterial 7.44 7.35 - 7.45 pH 09/16/2024 12:36 AM [facility] pO2 Arterial 115(H) 80 - 100 mmHg 09/16/2024 12:36 AM [facility] pCO2 Arterial 35 35 - 45 mmHg 12:36 AM [facility] HCO3 Arterial 23.8 20.0 - 30.0 mmol/L 09/16/2024 12:36 AM [facility] BE Arterial -0.1 -2.0 - 2.0 mmol/L 09/16/2024 12:36 AM [facility] Oxyhemoglobin Arterial 97.1 % 09/16/2024 12:36 AM [facility] Dexoyhemoglobin (HHB) % <1.0 % 09/16/2024 12:36 AM [facility] Methemoglobin 0.9 0.0 - 2.0 % 09/16/2024 12:36 AM [facility] Carboxyhemoglobin 1.2 0.0 - 2.0 % 2023 12:36 AM [facility] O2 Content Arterial 12.8 Interpret within clinical context ml/dL 09/16/2024 12:36 AM [facility] Hemoglobin by COOX 9.2(L) 12.0 - 17.6 g/dL 09/16/2024 12:36 AM [facility] O2 Saturation Arterial 99 90 - 100 % 09/16/2024 12:36 AM [facility] FI O2 Arterial 50.0 % 09/16/2024 12:36 AM [facility] Blood, arterial ARTERIAL BLOOD SPECIMEN / Unknown Arterial Puncture / Unknown 09/16/2024 12:10 AM [facility] 09/16/2024 12:26 AM [facility] - 09/16/2024 12:36 AM [facility] Carboxyhemoglobin Normal Concentration: Non-smokers: 0-2%; Smokers: 0-9%; Toxic: >20% Gibran Grande PA-C LAB - BLOOD GASES ORDERABLES [facility] [address] [place] [address], [facility] [phone] * (ABNORMAL) BASIC METABOLIC PANEL (CALCIUM TOTAL) (09/16/2024 12:10 AM [facility]) BUN 20 7 - 26 mg/dL 09/16/2024 1:01 AM [facility] Creatinine 0.85 0.71 - 1.16 mg/dL 09/16/2024 1:01 AM [facility] Sodium 141 136 - 145 mmol/L 09/16/2024 1:01 AM [facility] Potassium 4.2 3.5 - 4.5 mmol/L 09/16/2024 1:01 AM [facility] Chloride 111(H) 98 - 107 mmol/L 09/16/2024 1:01 AM [facility] CO2 23 22 - 29 mmol/L 09/16/2024 1:01 AM [facility] Glucose 99 70 - 99 mg/dL 09/16/2024 1:01 AM [facility] Calcium 7.7(L) 8.4 - 10.2 mg/dL 09/16/2024 1:01 AM [facility] Anion Gap 7 6 - 16 09/16/2024 1:01 AM [facility] BUN/Creatinine Ratio 24(H) 7 - 23 09/16/2024 1:01 AM [facility] Osmolality Calculated 295 275 - 295 mOsm/kg 09/16/2024 1:01 AM [facility] eGFR by CKD-EPI 87(L) >=90 mL/min/1.7 3 m2 09/16/2024 1:01 AM [facility] Blood BLOOD SPECIMEN / Unknown Venipuncture / Unknown 09/16/2024 12:10 AM [employer] 09/16/2024 12:31 AM [employer] Gibran Grande PA-C LAB - CHEMISTRY O RDERABLES [facility] [address] [place] [address], [facility] [phone] * CT 3D Recon W Independent Wksn (09/15/2024 7:05 PM [employer]) Anatomical Region Laterality Modality Computed Tomogra phy 09/15/2024 7:30 PM [employer] Impressions 09/16/2024 12:07 AM [employer] [facility] IMPRESSION: Three-dimensional rendering. Report dictated by Ovidio Myers MD I, Layo Adhikari MD have personally reviewed and interpreted this examination/study. > Interpreting Provider: Layo Adhikari MD on 09/16/2024 12:07 AM Narrative 09/16/2024 12:07 AM [employer] PROCEDURE: ??CT 3D RECON W INDEPENDENT WKSN, DATE/TIME OF EXAM: ??09/15/2024 7:05 PM, LOCATION ??[facility] INDICATION: S22.43XA: Multiple fractures of ribs, [...] WKSN, DATE/TIME OF EXAM:09/15/2024 7:05 PM, LOCATION [facility] INDICATION: S22.43XA: Multiple fractures of ribs, [...] ART + COOX PANEL (09/15/2024 1:55 PM [employer]) pH Arterial 7.36 7.35 - 7.45 pH 09/15/2024 2:15 PM [facility] pO2 Arterial 94 80 - 100 mmHg 09/15/2024 2:15 PM [facility] pCO2 Arterial 46(H) 35 - 45 mmHg 2:15 PM [facility] HCO3 Arterial 26.0 20.0 - 30.0 mmol/L 09/15/2024 2:15 PM [facility] BE Arterial 0.3 -2.0 - 2.0 mmol/L 09/15/2024 2:15 PM [facility] Oxyhemoglobin Arterial 97.6 % 09/15/2024 2:15 PM [facility] Dexoyhemoglobin (HHB) % <1.0 % 09/15/2024 2:15 PM [facility] Methemoglobin <0.8 0.0 - 2.0 % 09/15/2024 2:15 PM [facility] Carboxyhemoglobin 2.1(H) 0.0 - 2.0 % 2023 2:15 PM [facility] O2 Content Arterial 13.3 Interpret within clinical context ml/dL 09/15/2024 2:15 PM [employer] [facility] Hemoglobin by COOX 9.6(L) 12.0 - 17.6 g/dL 09/15/2024 2:15 PM [employer] [facility] O2 Saturation Arterial 100 90 - 100 % 09/15/2024 2:15 PM [employer] [facility] FI O2 Arterial 70.0 % 09/15/2024 2:15 PM [employer] [facility] Blood, arterial ARTERIAL BLOOD SPECIMEN / Unknown Arterial Puncture / Unknown 09/15/2024 1:55 PM [employer] [facility] 09/15/2024 2:11 PM [employer] Narrative [facility] - 09/15/2024 2:15 PM [facility] [facility] Carboxyhemoglobin Normal Concentration: Non-smokers: 0-2%; Smokers: 0-9%; Toxic: >20% Kendal Demarco MD LAB - BLOOD GASES OR DERABLES [facility] [address] [place] [phone], [facility] [phone] * XR Chest 1Vw Portable (09/15/2024 1:48 PM [employer]) Anatomical Region Laterality Modality Chest Digital Radiogra phy 09/15/2024 2:22 PM [employer] Narrative 09/15/2024 4:01 PM [employer] PROCEDURE: ??XR CHEST 1VW PORTABLE DATE/TIME OF [...] redemonstrated Report dictated by Manjula Bruno MD, (Surgical Attendant). Olivia Casey MD have personally reviewed and [...] redemonstrated Report dictated by Manjula Bruno MD, (Surgical Attendant). Olivia Casey MD have personally reviewed and interpreted this examination/study. > Interpreting Provider: Olivia Polanco MD on 09/15/2024 4:01 PM Kendal Demarco MD DIAGNOSTIC IMAGING O RDERABLES * LACTIC ACID BLOOD (09/15/2024 12:23 PM [employer]) Lactic Acid-Stat 1.1 <=2.0 mmol/L 09/15/2024 1:24 PM [employer] Blood BLOOD SPECIMEN / Unknown Venipuncture / Unknown 09/15/2024 12:23 PM [employer] [facility] 09/15/2024 12:55 PM [employer] Kendal Demarco MD LAB - CHEMISTRY YUAN JI [address] [address], [facility] [phone] * (ABNORMAL) CALCIUM IONIZED WHOLE BLOOD (09/15/2024 12:23 PM [employer]) Calcium Ionized 1.22 mmol/L 09/15/2024 12:54 PM [employer] [facility] pH 7.28(L) 7.35 - 7.45 pH 09/15/2024 12:54 PM [employer] Ionized Calcium pH Adjusted 1.16(L) 1.19 - 1.34 mmol/L 09/15/2024 12:54 PM [employer] [facility] Blood BLOOD SPECIMEN / Unknown Venipuncture / Unknown 09/15/2024 12:23 PM [facility] [facility] 09/15/2024 12:46 PM [employer] Gibran Grande PA-C LAB - CHEMISTRY O PENNYERAFRANCISCO [address] [address], [facility] [phone] * PHOSPHORUS BLOOD (09/15/2024 12:23 PM [employer]) Phosphorus 3.7 2.8 - 5.1 mg/dL 09/15/2024 1:29 PM [employer] [facility] Blood BLOOD SPECIMEN / Unknown Venipuncture / Unknown 09/15/2024 12:23 PM [employer] 09/15/2024 12:56 PM [employer] Gibran Grande PA-C LAB - CHEMISTRY O RDERABLES [address] [address], [facility] [phone] * MAGNESIUM BLOOD (09/15/2024 12:23 PM [employer]) Magnesium 2.1 1.6 - 2.6 mg/dL 09/15/2024 1:29 PM [facility] Blood BLOOD SPECIMEN / Unknown Venipuncture / Unknown 09/15/2024 12:23 PM [employer] 09/15/2024 12:56 PM [employer] Gibran Grande PA-C LAB - CHEMISTRY O RDERABLES [address] [address], [facility] [phone] * (ABNORMAL) CBC W/O DIFFERENTIAL (09/15/2024 12:23 PM [employer]) WBC 12.8(H) 4.0 - 10.7 x10E9/L 09/15/2024 1:17 PM [facility] RBC Count 3.05(L) 4.30 - 5.80 x10E12/L 09/15/2024 1:17 PM [facility] Hemoglobin 9.4(L) 13.3 - 17.5 g/dL 09/15/2024 1:17 PM [facility] Hematocrit 28.0(L) 38.7 - 51.1 % 09/15/2024 1:17 PM [facility] MCV 91.8 80.0 - 98.0 fL 09/15/2024 1:17 PM [facility] MCH 30.8 26.7 - 33.6 pg 09/15/2024 1:17 PM [facility] MCHC 33.6 31.7 - 36.3 g/dL 09/15/2024 1:17 PM [facility] RDW-CV 17.2(H) 11.3 - 14.8 % 09/15/2024 1:17 PM [facility] Platelet Count 125(L) 150 - 420 x10E9/L 09/15/2024 1:17 PM [facility] MPV 10.5 7.8 - 11.4 fL 09/15/2024 1:17 PM [facility] Blood BLOOD SPECIMEN / Unknown Venipuncture / Unknown 09/15/2024 12:23 PM [employer] 09/15/2024 12:55 PM [employer] Gibran Grande PA-C LAB - HEMATOLOGY ORDERABLES [facility] [address] [place] [address], [facility] [phone] * (ABNORMAL) BLOOD GASES ART + COOX PANEL (09/15/2024 12:23 PM [employer]) pH Arterial 7.30(L) 7.35 - 7.45 pH 09/15/2024 12:54 PM [facility] pO2 Arterial 97 80 - 100 mmHg 09/15/2024 12:54 PM [facility] pCO2 Arterial 55(H) 35 - 45 mmHg 12:54 PM [facility] HCO3 Arterial 27.1 20.0 - 30.0 mmol/L 09/15/2024 12:54 PM [facility] BE Arterial 0.1 -2.0 - 2.0 mmol/L 09/15/2024 12:54 PM [facility] Oxyhemoglobin Arterial 97.1 % 09/15/2024 12:54 PM [facility] Dexoyhemoglobin (HHB) % <1.0 % 09/15/2024 12:54 PM [facility] Methemoglobin <0.8 0.0 - 2.0 % 09/15/2024 12:54 PM [facility] Carboxyhemoglobin 1.8 0.0 - 2.0 % 2023 12:54 PM [facility] O2 Content Arterial 13.5 Interpret within clinical context ml/dL 09/15/2024 12:54 PM [facility] Hemoglobin by COOX 9.8(L) 12.0 - 17.6 g/dL 09/15/2024 12:54 PM [facility] O2 Saturation Arterial 99 90 - 100 % 09/15/2024 12:54 PM [facility] FI O2 Arterial 80.0 % 09/15/2024 12:54 PM [facility] Blood, arterial ARTERIAL BLOOD SPECIMEN / Unknown Arterial Puncture / Unknown 09/15/2024 12:23 PM [employer] 09/15/2024 12:46 PM [facility] - 09/15/2024 12:54 PM [facility] Carboxyhemoglobin Normal Concentration: Non-smokers: 0-2%; Smokers: 0-9%; Toxic: >20% Gibran Grande PA-C LAB - BLOOD GASES ORDERABLES [facility] [address] [place] [address], [facility] [phone] * (ABNORMAL) BASIC METABOLIC PANEL (CALCIUM TOTAL) (09/15/2024 12:23 PM [facility]) BUN 16 7 - 26 mg/dL 09/15/2024 1:29 PM [facility] Creatinine 0.88 0.71 - 1.16 mg/dL 09/15/2024 1:29 PM [facility] Sodium 141 136 - 145 mmol/L 09/15/2024 1:29 PM [facility] Potassium 4.5 3.5 - 4.5 mmol/L 09/15/2024 1:29 PM [facility] Chloride 111(H) 98 - 107 mmol/L 09/15/2024 1:29 PM [facility] CO2 25 22 - 29 mmol/L 09/15/2024 1:29 PM [facility] Glucose 108(H) 70 - 99 mg/dL 09/15/2024 1:29 PM [facility] Calcium 8.2(L) 8.4 - 10.2 mg/dL 09/15/2024 1:29 PM [facility] Anion Gap 5(L) 6 - 16 09/15/2024 1:29 PM [facility] BUN/Creatinine Ratio 18 7 - 23 09/15/2024 1:29 PM [employer] [facility] Osmolality Calculated 294 275 - 295 mOsm/kg 09/15/2024 1:29 PM [facility] eGFR by CKD-EPI 86(L) >=90 mL/min/1.7 3 m2 09/15/2024 1:29 PM [employer] [facility] Blood BLOOD SPECIMEN / Unknown Venipuncture / Unknown 09/15/2024 12:23 PM [employer] 09/15/2024 12:56 PM [employer] Gibran Grande PA-C LAB - CHEMISTRY O RDERABLES [facility] [address] [place] [address], [facility] [phone] * XR Abdomen Kub Portable (09/15/2024 11:27 AM [employer]) Anatomical Region Laterality Modality Abdomen Digital Radiogra phy 09/15/2024 11:3 1 AM [employer] Impressions 09/15/2024 11:48 AM [employer] IMPRESSION: No retained lap pads, needles, or [...] 09/15/2024 11:48 AM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
--- OUTSIDE RECORDS SUMMARY | 2024-11-07 04:58 | XMS_ITS | Encounter Summary ---
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 TIMES DAILY 09/14/24 0659 09/15/24 1415 enoxaparin (Lovenox) injection 30 mg -- Dispensed SC EVERY 12 HOURS 09/15/24 1339 09/14/24 0900 famotidine (Pepcid) tablet 20 mg -- Dispensed Enteral Tube 2 TIMES DAILY 09/14/24 0700 09/14/24 0100 fentaNYL (Sublimaze) bolus from bag 50 mcg -- Verified IV BOLUS FROM BAG PRN 09/14/24 0100 09/14/24 0145 fentaNYL 2500 mcg/50mL (Sublimaze) infusion -- Dispensed IV CONTINUOUS 09/14/24 0100 09/14/24 0900 gabapentin (Neurontin) capsule 300 mg -- Dispensed Enteral Tube 3 TIMES DAILY 09/14/24 0659 09/15/24 0900 Inactivated Influenza Vaccine, Adjuvanted, Triv. (Fluad Trivalent; 65y+) (aIIV3) 0.5 mL -- Verified IM IMMUNIZATION ONCE 09/14/24 1905 09/14/24 0002 iopamidol (Isovue 370) 76 % contrast 09/16/24 0001 Dispensed IV CONTRAST ONCE 09/14/24 0004 09/14/24 0814 iopamidol (Isovue 370) 76 % contrast 09/16/24 0813 Dispensed IV CONTRAST ONCE 09/14/24 0814 09/14/24 1030 norepinephrine (Levophed) 8 mg/250 ml D5 infusion premix -- Dispensed IV CONTINUOUS 09/14/24 0948 09/14/24 0900 polyethylene glycol 3350 (Miralax) packet 17 g -- Dispensed Enteral Tube DAILY 09/14/24 0659 09/14/24 0145 propofol (Diprivan) infusion -- Dispensed IV CONTINUOUS 09/14/24 0100 09/14/24 0900 senna (Senokot) tablet 8.6 mg -- Dispensed Enteral Tube DAILY 09/14/24 0659 09/16/24 0300 sodium phosphate 15 mmol in dextrose 5 % 255 mL bolus 09/16/24 1004 Completed IV ONCE 09/16/24 0236 09/14/24 1030 vasopressin 0.2 units/mL infusion -- Verified IV CONTINUOUS 09/14/24 0948 Post-op Diagnosis: * Open fracture of multiple ribs of left side, initial encounter [S22.42XB] . No Known Allergies Vitals: No data found. Lines, Drains, and Airways Type Details Placement Removal ETT Date: 09/13/24; Placement: Oral; Tube Size(mm): 8 MM; Depth of Insertion: 24 CM; Measured From:teeth 09/13/24 0000 by Annie Espinoza RCP Chest Tube 09/14/24; 0008; Bella PALUMBO; 28 FR; Left; 4th Intercostal space; Sedated; 09/16/24; 0820; Dr. Robert; Other (Comments) (Surgical intervention) 09/14/24 0008 by Gentry Cunha RN 11 by Rosalba Narayanan, Graduate Nurse Peripheral IV Date: 09/14/24; Time: 0016; Orientation: Anterior, Distal, Right; Location: Wrist; Gauge: 20 G 09/14/24 0016 by Gentry Cunha RN Gastric Tube 09/14/24; 0055; Siddhartha RN; OGT; Mouth (Oral); 16; Sedated 09/14/24 0055 by Gentry Cunha RN Arterial Line Date: 09/14/24; Time: 0150; Placed By: Elise Braun DO; Location: radial; Orientation: Right; Gauge: 20; Prep: Chlorhexidine ; Anesthetic Used: No; Line Secured: Transparent dressing; Tolerance: Well 09/14/24 0150 by Elise Braun DO Peripheral IV Date: 09/14/24; Time: 0150; Orientation: Left; Location: Forearm; Gauge: 18 G 09/14/24 0150 by Elise Braun DO Peripheral IV Date: 09/14/24; Time: 0800; Orientation: Anterior, Proximal, Right; Location: Forearm; Gauge: 18 G 09/14/24 0800 by Milagros Gates RN Central Line Date: 09/15/24; Time: 0230; Placed By: Dr. Migue Wilkins; Orientation: Left; Site: Subclavian; Lumens: Triple; Line Indications: Procedural; Length: 20 09/15/24 0230 by Ivis Marie, GLORIA Drain 09/15/24; 1115; Dr. Muñoz; Round; Bulb; 19; Medial; Abdomen; Well, General Anesthesia 09/15/24 1115 by Francisco Blandon, GLORIA Chest Tube 09/16/24; 1123; Dr. Almanza; #1; [place] Thoracic Catheter Right Angle; Covidien; [id number]; [id number]; 32 FR; Left, Lateral, Lower; Thoracic; Suction; General Anesthesia 09/16/24 1123 by Rosalba Narayanan, Graduate Nurse Chest Tube 09/16/24; 1130; Dr. Almanza; #2; [place] Thoracic Catheter Straight; Covidien; [id number]; 32 FR; Left, Lateral, Upper; Thoracic; Suction; General Anesthesia 09/16/24 1130 by Rosalba Narayanan Graduate Nurse Intraprocedure I/O Totals Intake Isolyte-S infusion 1200.00 mL albumin 5% 500.00 mL TRANSFUSE RED BLOOD CELL LEUKOREDUCED UNIT(S) 300.00 mL Total Intake 2000 mL Output Urine 275 mL Estimated Blood Loss 200 mL Total Output 475 mL Net Net Volume 1525 mL Patient Transfer Location: ICU Transport Airway: supplemental O2, ventilatory assistance with bag valve mask and intubation Transport Monitoring: heart rate, continuous pulse oximetry, frequent blood pressure checks and cardiac cath lab radiology technologist Notable Events: None Handoff Given? Yes Checklist or Protocol - The dumont handoff elements that must be included in the transfer of care checklist include: 1. Identification of patient, dumont family member(s) or patient surrogate. 2. Identification of responsible practitioner (primary service). 3. Discussion of pertinent/attainable medical history. 4. Discussion of the surgical/procedure course (procedure, reason for surgery, procedure performed). 5. Intraoperative anesthetic management and issue/concerns to include things such as airway, hemodynamic, narcotic, sedation level and paralytic management and intravenous fluids/blood products and urine output during the procedure. 6. Expectations/Plans for the early post-procedure period to include things such as the anticipatedcourse (anticipatory guidance). 7. Opportunity for questions and acknowledgement of understanding of report from the receiving ICU team. NOTABLE EVENTS: No notable events documented. Ken Lara MD PAINTER documented in this encounter Plan of Treatment Upcoming Encounters Date Type Department Care Team (Late st Contact Info) Description 11/12/2024 10:00 AM CAR PAINTER Office Visit [facility] [address] [place] [id number] [address] [place] [id number] documented as of this encounter Visit Diagnoses Not on filedocumented in this encounter Administered Medications Inactive Administered Medications - up to 3 most recent administrations Medication Order MAR Action Action Date Dose Rate Site albumin human 5 % infusion Intravenous, CONTINUOUS PRN, Starting on Noris 09/16/24 at 1043, Until Noris 09/16/24 at 1225, Anesthesia Intra-op Restarted 09/16/2024 11:54 AM CAR PAINTER $ New Bag/Syringe 09/16/2024 10:43 AM CAR PAINTER calcium chloride 10 % injection Intravenous, PRN, Starting on Noris 09/16/24 at 0816, Until Noris 09/16/24 at 1225, Anesthesia Intra-op $ Given 09/16/2024 12:00 PM CAR PAINTER 250 mg $ Given 09/16/2024 11:22 AM CAR PAINTER 250 mg $ Given 09/16/2024 11:17 AM CAR PAINTER 250 mg ceFAZolin (Ancef) 2,000 mg in 50 mL IVPB Intravenous, PRN, Starting on Noris 09/16/24 at 0813, Until Noris 09/16/24 at 1225, Anesthesia Intra-op $ Given 09/16/2024 8:13 AM CAR PAINTER 2 g esmolol (Brevibloc) injection Intravenous, PRN, Starting on Noris 09/16/24 at 0807, Until Noris 09/16/24 at 1225, Anesthesia Intra-op $ Given 09/16/2024 8:07 AM CAR PAINTER 50 mg $ Given 09/16/2024 7:50 AM CAR PAINTER 30 mg fentaNYL (PF) (Sublimaze) injection Intravenous, PRN, Starting on Noris 09/16/24 at 0740, Until Noris 09/16/24 at 1225, Anesthesia Intra-op $ Given 09/16/2024 8:32 AM CAR PAINTER 50 mcg $ Given 09/16/2024 7:40 AM CAR PAINTER 50 mcg isolyte-S pH 7.4 infusion Intravenous, CONTINUOUS PRN, Starting on Noris 09/16/24 at 0730, Until Noris 09/16/24 at 1225, Anesthesia Intra-op $ New Bag/Syringe 09/16/2024 10:39 AM CS T $ New Bag/Syringe 09/16/2024 7:30 AM CAR PAINTER norepinephrine (Levophed) 8 mg/250 ml D5 infusion [...] restarting infusion. Rate Change 09/17/2024 3:38 PM CAR PAINTER 0.06 mcg/kg/min 8.17 mL/hr Rate Change 09/17/2024 3:23 PM CAR PAINTER 0.08 mcg/kg/min 10.89 m L/hr Rate Change 09/17/2024 12:46 PM CAR PAINTER 0.1 mcg/kg/min 13.61 m L/hr phenylephrine 100 mcg/mL injection Intravenous, PRN, Starting on Noris 09/16/24 at 0803, Until Noris 09/16/24 at 1225, Anesthesia Intra-op $ Given 09/16/2024 11:11 AM CAR PAINTER 100 mcg $ Given 09/16/2024 11:06 AM CAR PAINTER 100 mcg $ Given 09/16/2024 10:05 AM CAR PAINTER 100 mcg propofol (Diprivan) infusion 0-50 mcg/kg/min ? 72.6 [...] restarting infusion. Current Rate 09/17/2024 10:56 AM CAR PAINTER 10 mcg/kg/min 4.36 mL/hr $ New Bag/Syringe 09/17/2024 7:49 AM CAR PAINTER 10 mcg/kg/min 4.3 6 mL/hr Current Rate 09/17/2024 7:08 AM CAR PAINTER 10 mcg/kg/min 4.36 mL/ hr propofol (Diprivan) injection Intravenous, PRN, Starting on Noris 09/16/24 at 0730, Until Noris 09/16/24 at 1225, Anesthesia Intra-op $ Given 09/16/2024 11:03 AM CAR PAINTER 20 mg $ Given 09/16/2024 9:49 AM CAR PAINTER 50 mg $ Given 09/16/2024 7:25 AM CAR PAINTER 50 mg rocuronium (Zemuron) injection Intravenous, PRN, Starting on Noris 09/16/24 at 0744, Until Noris 09/16/24 at 1225, Anesthesia Intra-op $ Given 09/16/2024 9:48 AM CAR PAINTER 20 mg $ Given 09/16/2024 8:26 AM CAR PAINTER 20 mg $ Given 09/16/2024 7:44 AM CAR PAINTER 40 mg sugammadex (Bridion) injection Intravenous, PRN, Starting on Noris 09/16/24 at 1225, Until Noris 09/16/24 at 1225, Anesthesia Intra-op $ Given 09/16/2024 12:25 PM CAR PAINTER 200 mg TRANSFUSE RED BLOOD CELL LEUKOREDUCED UNIT(S) Routine, Suggested rate RBC's 1-2 mL/min (60-120 ml/hr) for first 15 minutes then as rapidly as tolerated, approximately 4 ml/min or 240 ml/hour. Usually given over 1-2 hours. For recipients at risk of fluid overload, may adjust flow rate to as low as 1 ml/kg/hour. 19th edition Technical Manual. 2017. AABB $ New Bag/Syringe 09/16/2024 11:39 AM CAR PAINTER vasopressin (Vasostrict) 40 Units in dextrose 5 % 40 mL infusion Intravenous, CONTINUOUS PRN, Starting on Noris 09/16/24 at 0802, Until Noris 09/16/24 at 1225, Anesthesia Intra-op $ Bolus New Bag 09/16/2024 9:05 AM CAR PAINTER 0.5 Units $ Bolus New Bag 09/16/2024 8:21 AM CAR PAINTER 1 Units $ New Bag/Syringe 09/16/2024 8:09 AM CAR PAINTER 1 Units documented in this encounter Care Teams Senior Engineering Associate Relationship Specialty Start Date End Date Ivis Marie RN Registered Nurse 09/14/24 documented as of this encounter
--- OUTSIDE RECORDS SUMMARY | 2024-11-07 04:59 | XMS_ITS | Encounter Summary ---
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 73439 hours. Assessment/Plan: Neuro: Acute posttraumatic pain -continue [...] in SNF or acute rehab Kosta Corral APRN-RESEARCH ENGINEER 10/16/2024 6:45 AM OW REPRESENTATIVE * Ella Landry, OT - 10/15/2024 2:33 PM CST [facility] Occupational Therapy Progress Note Patient: Lucian Sosa Med Record Number: [id number] Date of : 1940 Age: [age] year [...] rest breaks Modified Maria G: Current Modified Glencliff Score: 4 AM-PAC 6 Clicks Daily Activity [...] sitting with standby assist - added 10/14 Mirror Polisher Goal(s): Patient to discharge to appropriate next [...] light within reach, with RN in room. OW REPRESENTATIVE * Tessa Gonzáles PA-C - 10/15/2024 1:47 [...] cervical collar now. 10/12: did not pass NURSE AUDITOR for diet 10/11. Activity as tolerated in [...] requesting to eat, re- engaging speech. 10/07: GRAYSONEON. VSS on 2 L NC. Pt in [...] 100mg TID. 09/24: Patient extubated yesterday to AR. Remains stable on 6L NC. Dobhoff placed [...] discussed with family and extubated patient to AR. 1-2 hours following extubation, patient required escalation to NRB and HFNC, thus re-intubated. Again doing well on vent per ABG and SPO2. Levo weaned to 0.01, precedex increased to 0.09 due to pt pulling at ETT and lines. Graham removed againovernight per nurse exhibitions and collections manager, however pt straight cathed x2 for [...] 3 mL Inhalation q6h PRN Kathy Mendoza, FORM WORKER-RESEARCH ENGINEER bisacodyl (Dulcolax) suppository 10 mg 10 mg Rectal QDAY PRN Tessa Gonzáles PA-C enoxaparin (Lovenox) injection 30 mg 30 mg Subcutaneous q12h Yolanda Crane DO 30 mg at 10/15/24 1136 Haemophilus B Conjugate Vaccine (ActHIB; 6wk+) (Hib (PRP-T)) 0.5 mL 0.5 mL Intramuscular Immunization - Once Kendal Demarco MD lidocaine (Lidoderm) 5 % patch 2 patch 2 patch Transdermal q24h Kathy Mendoza FORM WORKER-RESEARCH ENGINEER 2 patch at112/16/23 1137 melatonin tablet 5 [...] 17 g 17 g Enteral Tube QDAY Katyh Mendoza, FORM WORKER-RESEARCH ENGINEER 17 gat 10/15/24 1140 senna (Senokot) tablet 17.2 mg 17.2 mg Enteral Tube QDAY Kathy Mendoza, FORM WORKER- RESEARCH ENGINEER 17.2 mg at 10/15/24 1137 tamsulosin (Flomax) [...] 10/14. Tessa Gonzáles PA-C 10/15/2024 1:47 PM OW REPRESENTATIVE * Marcella Wells RN - 10/15/2024 11:51 [...] Selected Services Address Phone Fax Patient Preferred [facility] Selected Longterm [address] [facility] [address] -- [facility] Accepted -- [address] [facility] [phone] [facility] Pending - Request Sent -- [address] [facility] [facility] [address] [phone] -- [facility] Pending - Request Sent -- [address] [facility] [address] [phone] -- [facility] Pending - Request Sent -- [address] [facility] [address] [phone] -- [facility] Pending - Request Sent -- [address] [facility] [address] [phone] -- [facility] Pending - Request Sent -- [address] [facility] [address] [phone] -- [facility] Pending - Request Sent -- [address] [facility] [phone] -- [facility] Pending - Request Sent -- [address] [facility] [address] [phone] -- [facility] Pending - Request Sent -- [address] [facility] [phone] -- Current Capacity last updated by Torri Mueller on 06/10/2024 1115 Renamed: [facility] Pending - Request Sent -- [address] [facility] [address] [phone] -- [facility] Pending - Request Sent -- [address] [facility] [phone] -- Current Capacity last updated by Nikki Parikh on 08/04/2024 1444 We have 6 available female beds and 6 available male beds. [facility] Pending - Request Sent -- [address] [facility] [address] [phone] -- [facility] Pending - No Request Sent -- [address] [facility] [phone] -- [facility] [place] [facility]. Acute Rehab Pending - No Request Sent -- [address] [facility] [phone] -- Family Support (Name and Phone): Extended Emergency Contact Information Primary Emergency Contact: Anamaria Gomez Mobile Relation: Daughter Secondary Emergency Contact: AdrianLilliam Relation: Grandchild Preferred language: Estonian Audio Video Repairer needed? No Transportation at Discharge: Ambulance: READMISSION RISK SCORE is 13 at 11:51 AM 10/15/2024.: [email or web address] BAJEAN, MA-Certification, A.D.N, BSN [phone] OW REPRESENTATIVE * Gentry Cain RN - 10/15/2024 11:20 [...] agreement, if implemented Description: INTERVENTIONS Outcome: Progressing OW REPRESENTATIVE * Izabel Yoder, PT - 10/15/2024 10:56 AM CST [facility] Physical Therapy Progress Note Patient: Lucian Sosa Med Record Number: [id number] Date of : 1940 Age: [age] year [...] assist with appropriate AD - added 10/08 Nursing Home Goal(s): Patient to discharge to appropriate [...] Gentry gomez, with fall mats in place. OW REPRESENTATIVE * Tessa Gonzáles PA-C - 10/14/2024 5:30 PM CST Peer To Peer: Spoke with [facility] for [facility]. They will review the latest therapy notes and update their recommendations. Tessa Gonzáles PA-C 10/14/2024 5:33 PM OW REPRESENTATIVE * Kd Lacey, CARLENE - 10/14/2024 4:10 PM CST [facility] Swallow Therapy Patient: Lucian Sosa Med Record Number: [id number] Date of : 1940 Age: [age] year [...] Impression - Pharyngeal: Mild Education/Interventions: While performing NURSE AUDITOR, Patient was instructed in: results of swallow [...] oropharyngeal swallow function to warrant diet upgrade. Mirror Polisher Goal (s): Patient to be independent/baseline with functional mobility and self care and be able to safely discharge to prior level of care. Kd Munson M.A., SHAYNA-NURSE AUDITOR Speech Language Pathologist [phone] OW REPRESENTATIVE * Rodríguez Reina MSW - 10/14/2024 4:05 PM CST Summary Note Discharge Level of Care: acute rehab vs SNF Discharge Destination: [facility] Insurance Auth: Denied - peer to peer offered by calling [phone] opt 5 by tomorrow morning [id number] Anticipated Mode of Transportation:EMS Contacts (Name, relationship, phone #): Anamaria daughter [phone] Anticipated DC Date:10/15 Pending Needs: Insurance auth to be approved Comments: SW called and spoke with pt's daughter Anamaria and provided update on the insurance denying. EASTON Moore 10/14/2024 ' OW REPRESENTATIVE * Ella Landry OT - 10/14/2024 10:33 AM CST [facility] Occupational Therapy Progress Note Patient: Lucian Sosa Med Record Number: [id number] Date of : 1940 Age: [age] year [...] Facial Hygiene: Minimal Assistance (to wash face, ALATNA to initiate; max cueing) Upper Body Dressing: Maximal Assistance (to adjust gown) Lower Body Dressing: Total Assistance (to adjust socks while supported in bed) Toileting: Total Assistance (for posterior hygiene while in bed) Splint Issued/Checked: none ACTIVITY TOLERANCE: Activity Tolerance: Requires rest breaks Modified Glencliff: Current Modified Glencliff Score: 4 AM-PAC 6 Clicks Daily Activity [...] sitting with standby assist - added 10/14 Nursing Home Goal(s): Patient to discharge to appropriate [...] under patient, with call light within reach. OW REPRESENTATIVE * Izabel Yoder, PT - 10/14/2024 9:51 AM CST [facility] Physical Therapy Progress Note Patient: Lucian [facility] Record Number: [id number] Date of : 1940 Age: [age] year [...] assist with appropriate AD - added 10/08 Mirror Polisher Goal(s): Patient to discharge to appropriate next [...] fall mats in place, all lines/tubes intact. OW REPRESENTATIVE * Tessa Gonzáles PA-C - 10/14/2024 8:15 [...] cervical collar now. 10/12: did not pass NURSE AUDITOR for diet 10/11. Activity as tolerated in [...] 100mg TID. 09/24: Patient extubated yesterday to AR. Remains stable on 6L NC. Dobhoff placed [...] discussed with family and extubated patient to AR. 1-2 hours following extubation, patient required escalation to NRB and HFNC, thus re-intubated. Again doing well on vent per ABG and SPO2. Levo weaned to 0.01, precedex increased to 0.09 due to pt pulling at ETT and lines. Graham removed againovernight per nurse exhibitions and collections manager, however pt straight cathed x2 for [...] 17 g Enteral Tube QDAY Kathy Mendoza, FORM WORKER-RESEARCH ENGINEER 17 gat 10/13/24 0932 senna (Senokot) tablet 17.2 mg 17.2 mg Enteral Tube QDAY Kathy Mendoza, FORM WORKER- RESEARCH ENGINEER 17.2 mg at 10/13/24 0933 tamsulosin (Flomax) capsule 0.4 mg 0.4 mg Enteral Tube QDAY Thang Gaines, DO 0.4 mg at 10/13/24 0933 traZODone (Desyrel) tablet 75 mg 75 mg Enteral Tube AT BEDTIME Tessa Gonzáles PA-C 75 mg at 10/13/24 205 vitamin D3 (Cholecalciferol) 25 MCG (1000 UNITS) [...] Rehab. Tessa Gonzáles PA-C 10/14/2024 8:16 AM OW REPRESENTATIVE * Jacob Horton MD - 10/14/2024 5:21 AM CST Orthopaedic Trauma Surgery Daily Progress Note Name: Lucian Sosa Age: [age] year old Room: [address] [place] [address] Date Admitted: 09/13/2024 Interval History: Patient seen [...] , INR , PTT in the last 87974 hours. Vitamin D Recent Labs Component Name 09/14/24 0013 [id number] 17.9* Vitals BP 126/70 (BP Location: Left [...] please page Ortho Trauma service pager through [employer]. To avoid delays in communication and patient care, please do not use [employer] Secure Chat. Patient will require follow up in the office with Dr. Roldan 2 week(s) after discharge. Ortho office staff to help arrange. Please notify Ortho Trauma PATRIC when patient is ready for discharge. Contact information below: [facility] Office Schedulers: [phone], option 1 Jacob Horton MD 10/14/2024 1:51 PM OW REPRESENTATIVE Associated attestation - Marcella Roldan MD - 10/15/2024 10:48 AM ESCROW REPRESENTATIVE ATTENDING ADDENDUM: Patient discussed during rounds. I confirm the history, physical exam, assessment and plan. Please see resident note for further details. Marcella Roldan MD 10/15/2024 10:48 AM * Mallory Castle SLP - 10/13/2024 1:33 PM CST [facility] Swallow Treatment Patient: Lucian Sosa Med Record Number: [id number] Date of : 1940 Age: [age] year [...] Impression - Pharyngeal: Moderate Treatment/Education/Interventions: While performing NURSE AUDITOR, Patient and Caregiver was instructed in: recommendations [...] clinical signs of aspiration and aspiration precautions. Nursing Home Goal (s): Patient to be independent/baseline with functional mobility and self care and be able to safely discharge to prior level of care. Plan: NURSE AUDITOR to follow for PO trials as able OW REPRESENTATIVE * Marcella Wells RN - 10/13/2024 1:02 PM CST Care Coordination Progress Note Expected Discharge Date: 10/14/2024 Discharge Plan: Plan is for dc to [facility]; waiting on insurance authorization; SW following referral and will manage transfer and transportation. Family Support (Name and Phone): Extended Emergency Contact Information Primary Emergency Contact: Anamaria Gomez weipass Relation: Daughter Secondary Emergency Contact: Lilliam Campbell [place] Relation: Grandchild Preferred language: Estonian Audio Video Repairer needed? No Transportation at Discharge: Family:, EMS READMISSION RISK SCORE is 13 at 1:02 PM 10/13/2024.: [email or web address] JEAN BENNETT, MA-Certification, A.D.N, BSN [phone] OW REPRESENTATIVE * Kosta Corral APRN-MYRNA - 10/13/2024 9:46 [...] cervical collar now. 10/12: did not pass NURSE AUDITOR for diet 10/11. Activity as tolerated in [...] discussed with family and extubated patient to AR. 1-2 hours following extubation, patient required escalation to NRB and HFNC, thus re-intubated. Again doing well on vent per ABG and SPO2. Levo weaned to 0.01, precedex increased to 0.09 due to pt pulling at ETT and lines. Graham removed againovernight per nurse exhibitions and collections manager, however pt straight cathed x2 for [...] , INR , PTT in the last 06710 hours. Assessment/Plan: Neuro: Acute posttraumatic pain -continue [...] acute rehab CONSTANZA Dey 10/13/2024 9:46 AM OW REPRESENTATIVE * Andrea Botello RN - 10/12/2024 10:26 PM CST Notified MD of patient lack of iv access and about patient unwillingness to get another one. Received ok to leave it out for now. OW REPRESENTATIVE * Kosta Corral APRN-CNP - 10/12/2024 2:18 PM CST Family Notification Documentation Contact made: 10/12/2024 2:18 PM Person(s) contacted: Anamaria Gomez Method of communication: Phone Phone number: [phone] Duration of discussion: 5 minutes Summary of discussion Discussed results of CT C-spine Discussed results of NURSE AUDITOR eval 10/11 All questions answered Discussed PT/OT needed and ARU indications All questions answered OW REPRESENTATIVE * Breana Morrell, PENNY/EMMETT - 10/12/2024 12:34 [...] fractures and wounds.Trauma following. Pt is AxOx1. NURSE AUDITOR evaluated on 12/12 with the results of pt needing to remain NPO and stay on TF. Palliative Following. Pt is receiving goal TF rate (Jevity 1.5 at 60mL/hr) via PEG tube. Per chart, pt is having soft, loose BM. Continue with fiber additive in TF. Labs reviewed- no new labs since 10/08. Carl KLINE. Pt will discharge to a SNF. RD [...] LUE Edema: Mild pitting, sligh indentation (10/11/24 08) L Hand Edema: Mild pitting, slight indentation [...] with current goal LUIS CARLOS Webber Ascom:[id number] OW REPRESENTATIVE * Damian Shepard - 10/12/2024 12:29 PM CST Nursing Program Chair greeted family at bedside of patient. Nursing Program Chair engaged the loved ones in conversation and provided a compassionate presence. No spiritual needs at this time. Spiritual care is available 24/7as needed or requested. Damian Shepard 10/12/2024 12:32 PM [id number] OW REPRESENTATIVE * Yolanda Juárez COTA - 10/12/2024 10:51 AM CST [facility] Occupational Therapy Progress Note Patient: Lucian Sosa Med Record Number: [id number] Date of : 1940 Age: [age] year [...] (don gown in supine) ACTIVITY TOLERANCE: Modified Glencliff: AM-PAC 6 Clicks Daily Activity Raw Score:: [...] sit with moderate assist and X 2 Nursing Home Goal(s): Patient to discharge to appropriate [...] with RN in room, all lines/tubes intact. OW REPRESENTATIVE * Izabel Yoder, PT - 10/12/2024 10:48 AM CST [facility] Physical Therapy Progress Note Patient: Lucian Sosa Med Record Number: [id number] Date of : 1940 Age: [age] year [...] assist with appropriate AD - added 10/08 Nursing Home Goal(s): Patient to discharge to appropriate [...] with RN in room, all lines/tubes intact. OW REPRESENTATIVE * Zofia Arteaga RN - 10/12/2024 8:18 [...] safe and free from injury. Outcome: Progressing OW REPRESENTATIVE * Kosta Corral APRN-MYRNA - 10/12/2024 7:02 AM CST Images from [...] division Interval History: 10/12: did not pass NURSE AUDITOR for diet 10/11. Activity as tolerated in [...] 100mg TID. 09/24: Patient extubated yesterday to AR. Remains stable on 6L NC. Dobhoff placed [...] discussed with family and extubated patient to AR. 1-2 hours following extubation, patient required escalation to NRB and HFNC, thus re-intubated. Again doing well on vent per ABG and SPO2. Levo weaned to 0.01, precedex increased to 0.09 due to pt pulling at ETT and lines. Graham removed againovernight per nurse exhibitions and collections manager, however pt straight cathed x2 for [...] , INR , PTT in the last 71870 hours. Assessment/Plan: Neuro: Acute posttraumatic pain -continue [...] impairment. 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 Will inform the oncoming nurse and speech of this OW REPRESENTATIVE * Kd Lacey, CARLENE - 10/11/2024 2:45 PM CST [facility] Swallow Therapy Patient: Lucian Sosa Med Record Number: [id number] Date of : 1940 Age: [age] year old Impressions: Patient's swallow function reassessed at bedside. Patient completed trial of ice chips, thin liquids and puree. Patient demonstrated consistent s/s of aspiration, including delayed swallow, wet vocal quality and cough and required max cues and encouragement to participate with NURSE AUDITOR. ST continues to recommend NPO with TFs [...] Impression - Pharyngeal: Moderate Education/Interventions: While performing NURSE AUDITOR, Patient was instructed in: results of swallow [...] oropharyngeal swallow function to warrant diet upgrade. Nursing Home Goal (s): Patient to be independent/baseline with functional mobility and self care and be able to safely discharge to prior level of care. Kd Munson M.A., [facility]-NURSE AUDITOR Speech Language Pathologist [phone] OW REPRESENTATIVE * Izabel Yoder, PT - 10/11/2024 2:05 PM CST [facility] Physical Therapy Progress Note Patient: Lucian Sosa Med Record Number: [id number] Date of : 1940 Age: [age] year [...] assist with appropriate AD - added 10/08 Mirror Polisher Goal(s): Patient to discharge to appropriate next [...] area, nurse Mary aware and agreeable . OW REPRESENTATIVE * Yolanda Juárez COTA - 10/11/2024 2:05 PM CST [facility] Occupational Therapy Progress Note Patient: Lucian Kenubb Med Record Number: [id number] Date of : 1940 Age: [age] year [...] (don gown in supine) ACTIVITY TOLERANCE: Modified Glencliff: AM-PAC 6 Clicks Daily Activity Raw Score:: [...] sit with moderate assist and X 2 Nursing Home Goal(s): Patient to discharge to appropriate [...] area, nurse Mary aware and agreeable . OW REPRESENTATIVE * Nakul El MD - 10/11/2024 1:00 PM CST Orthopaedic Spine Surgery Plan of Care Note Lucian Sosa Repeat cervical spine CT reviewed with attending. Demonstrates unchanged alignment from prior imaging study. Continue AAT in a soft collar. Currently has follow up scheduled with Dr. Collier on 11/03/24 Please page with questions Nakul El MD 10/11/2024 1:00 PM OW REPRESENTATIVE * Alexandria Villa RN - 10/11/2024 10:55 AM CST Images from the original note were not included. Reassessment of sacrococcygeal area, per trauma services, it is a trauma related injury, New photo obtained: Pt may benefit from TRIAD paste and sacral mepilex border daily. Pt is on a Pulsate mattress. He isrolling/scooting all over, difficult to stay repositioned and offloaded. OW REPRESENTATIVE * Marcella Wells RN - 10/11/2024 10:50 [...] Selected Services Address Phone Fax Patient Preferred [facility] Selected Longterm [address] [facility] [phone] -- [facility] Pending - Request Sent -- [address] [facility] [phone] [facility] Pending - Request Sent -- [address] [facility] [facility] [address] [phone] -- [facility] Pending - Request Sent -- [address] [facility] [address] [phone] -- [facility] Pending - Request Sent -- [address] [facility] [address] [phone] -- [facility] Pending - Request Sent -- [address] [facility] [address] [phone] -- [facility] Pending - Request Sent -- [address] [facility] [address] [phone] -- [facility] Pending - Request Sent -- [address] [facility] [phone] -- [facility] Pending - No Request Sent -- [address] [facility] [phone] -- [facility] [place] [facility]. Acute Rehab Pending - No Request Sent -- [address] [facility] [phone] -- Family Support (Name and Phone): Extended Emergency Contact Information Primary Emergency Contact: Anamaria Gomez Mobile Relation: Daughter Secondary Emergency Contact: Lilliam Campbell [place] Relation: Grandchild Preferred language: Estonian Audio Video Repairer needed? No Transportation at Discharge: Family:, EMS READMISSION RISK SCORE is 11 at 10:50 AM 10/11/2024.: [email or web address] JEAN BENNETT, MA-Certification, A.D.N, BSN [phone] OW REPRESENTATIVE * Zofia Arteaga RN - 10/11/2024 8:30 [...] treatment and care. Description: INTERVENTIONS Outcome: Progressing OW REPRESENTATIVE * Sean Natarajan MD - 10/11/2024 7:42 [...] discussed with family and extubated patient to AR. 1-2 hours following extubation, patient required escalation to NRB and HFNC, thus re-intubated. Again doing well on vent per ABG and SPO2. Levo weaned to 0.01, precedex increased to 0.09 due to pt pulling at ETT and lines. Graham removed againovernight per nurse exhibitions and collections manager, however pt straight cathed x2 for [...] injection 30 mg 30 mg Subcutaneous q12h Shayy Craneil, DO 30 mg at 10/11/24 0511 furosemide [...] 17 g Enteral Tube QDAY Kathy Mendoza, FORM WORKER-RESEARCH ENGINEER 17 gat 10/10/24 1003 senna (Senokot) tablet 17.2 mg 17.2 mg Enteral Tube QDAY Kathy Mendoza APRN- RESEARCH ENGINEER 17.2 mg at 10/10/24 1002 tamsulosin (Flomax) [...] today. Sean Natarajan MD 10/11/2024 10:12 AM OW REPRESENTATIVE * Kathy Mendoza, FORM WORKER-RESEARCH ENGINEER - 10/10/2024 12:31 PM CST Trauma Floor [...] 100mg TID. 09/24: Patient extubated yesterday to AR. Remains stable on 6L NC. Dobhoff placed [...] discussed with family and extubated patient to AR. 1-2 hours following extubation, patient required escalation to NRB and HFNC, thus re-intubated. Again doing well on vent per ABG and SPO2. Levo weaned to 0.01, precedex increased to 0.09 due to pt pulling at ETT and lines. Graham removed againovernight per nurse exhibitions and collections manager, however pt straight cathed x2 for [...] 3 mL Inhalation q6h PRN Kathy Mendoza, FORM WORKER-RESEARCH ENGINEER aspirin chew tablet 81 mg 81 mg [...] patch 2 patch Transdermal q24h Kathy Mendoza FORM WORKER-RESEARCH ENGINEER 2 patch at112/11/23 1003 melatonin tablet 5 mg 5 mg Enteral Tube AT BEDTIME Tessa Gonzáles PA-C 5 mg at 10/09/242023 [START ON 10/11/2024] Meningococcal Conjugate Vaccine, ACWY (Menveo; 10y-55y) (MenACWY-CRM) 0.5 mL 0.5 mL Intramuscular Immunization - Once Kathy Mendoza APRN-MYRNA [START ON 10/11/2024] Meningococcal Serogroup B Vaccine (Bexsero; 10y+) (MenB- 4C) 0.5 mL 0.5 mL Intramuscular Immunization - Once Kathy Mendoza FORM WORKER-RESEARCH ENGINEER oxyCODONE (immediate release) (Roxicodone) tablet 5 mg 5 mg Enteral Tube q6h PRN Francisco Gould MD 5 mg at 10/10/24 0100 Or oxyCODONE (immediate release) (Roxicodone) tablet 2.5 mg 2.5 mg Enteral Tube q6h PRN Francisco Gould MD [START ON 10/11/2024] Pneumococcal Conjugate Vaccine, 20 valent (Prevnar 20; wk+) (PCV20) 0.5 mL 0.5 mL Intramuscular Immunization - Once Kathy Mendoza, FORM WORKER-RESEARCH ENGINEER polyethylene glycol 3350 (Miralax) packet 17 g 17 g Enteral Tube QDAY Kathy Mendoza FORM WORKER-RESEARCH ENGINEER 17 gat 10/10/24 1003 senna (Senokot) tablet 17.2 mg 17.2 mg Enteral Tube QDAY Kathy Mendoza, FORM WORKER- RESEARCH ENGINEER 17.2 mg at 10/10/24 1002 tamsulosin (Flomax) capsule 0.4 mg 0.4 mg Enteral Tube QDAY Thang Gaines DO 0.4 mg at 10/10/24 1002 traZODone (Desyrel) tablet 75 mg 75 mg Enteral Tube AT BEDTIME Tessa Gonzáles PA-C 75 mg at 10/09/242023 vitamin D3 (Cholecalciferol) 25 MCG (1000 UNITS) tablet 1,000 Units 1,000 Units Enteral Tube QDAY Eder Thang DO 1,000 Units at 10/10/24 1002 Review [...] Barrier to discharge: SNF placement Kathy Mendoza APRN-RESEARCH ENGINEER 10/10/2024 12:32 PM OW REPRESENTATIVE Associated attestation - Bong Edmondson MD - 10/11/2024 3:05 PM ESCROW REPRESENTATIVE Patient seen and examined with the residents. [...] agreement, if implemented Description: INTERVENTIONS Outcome: Progressing OW REPRESENTATIVE * Zofia Arteaga RN - 10/09/2024 12:21 [...] 1220 by Zofia Arteaga RN Outcome: Progressing OW REPRESENTATIVE * Zofia Arteaga RN - 10/09/2024 12:20 [...] effective coping strategies Description: INTERVENTIONS Outcome: Progressing OW REPRESENTATIVE * Kathy Mendoza, FORM WORKER-RESEARCH ENGINEER - 10/09/2024 9:15 AM CST Trauma Floor [...] 100mg TID. 09/24: Patient extubated yesterday to AR. Remains stable on 6L NC. Dobhoff placed [...] discussed with family and extubated patient to AR. 1-2 hours following extubation, patient required escalation to NRB and HFNC, thus re-intubated. Again doing well on vent per ABG and SPO2. Levo weaned to 0.01, precedex increased to 0.09 due to pt pulling at ETT and lines. Graham removed againovernight per nurse exhibitions and collections manager, however pt straight cathed x2 for [...] 3 mL Inhalation q6h PRN Kathy Mendoza, FORM WORKER-RESEARCH ENGINEER aspirin chew tablet 81 mg 81 mg Enteral Tube QDAY Guerra Tigist F, DO 81 mg at 10/08/24 0834 [...] patch 2 patch Transdermal q24h Kathy Mendoza, FORM WORKER-MYRNA 2 patch at112/09/23 0835 melatonin tablet 5 [...] 17 g Enteral Tube QDAY Kathy Mendoza, FORM WORKER-RESEARCH ENGINEER 17 gat 10/07/24 0804 senna (Senokot) tablet 17.2 mg 17.2 mg Enteral Tube QDAY Kathy Mendoza, FORM WORKER- RESEARCH ENGINEER 17.2 mg at 10/07/24 0803 tamsulosin (Flomax) capsule 0.4 mg 0.4 mg Enteral Tube QDAY Thang Gaines, DO 0.4 mg at 10/08/24 0834 traZODone (Desyrel) tablet 75 mg 75 mg Enteral Tube AT BEDTIME Tessa Gonzáles PA-C 75 mg at 10/08/24 2122 vitamin D3 (Cholecalciferol) 25 MCG (1000 UNITS) [...] discharge planning Barrier to discharge: SNF placement aKthy Mendoza APRN-RESEARCH ENGINEER 10/09/2024 2:44 PM OW REPRESENTATIVE Associated attestation - Bong Edmondson MD - 10/09/2024 4:54 PM ESCROW REPRESENTATIVE Patient seen and examined with the residents. [...] at 1100, abd binder remains in place. [place] collar pads replaced. Problem: Mechanical Ventilation Goal: [...] injury from restraints Description: INTERVENTIONS: Outcome: Progressing OW REPRESENTATIVE * Yolanda Juárez COTA - 10/08/2024 12:05 PM CST [facility] Occupational Therapy Progress Note Patient: Lucian Sosa Med Record Number: [id number] Date of : 1940 Age: [age] year [...] (washed face seated EOB) ACTIVITY TOLERANCE: Modified [place]: AM-PAC 6 Clicks Daily Activity Raw Score:: [...] sit with moderate assist and X 2 Mirror Polisher Goal(s): Patient to discharge to appropriate next [...] with RN, Beverly gomez, all lines/tubes intact. OW REPRESENTATIVE * Marcella Wells RN - 10/08/2024 11:12 AM CST Care Coordination Progress Note Expected Discharge Date: 10/08/2024 Discharge Plan: PT/OT recommending rehab. SW is following for placement; will manage referrals, transfer, and transportation when medically ready. Continued Care and Services - Admitted Since 09/13/2024 Destination Service Provider Request Status Selected Services Address Phone Fax Patient Preferred [facility] Pending - No Request Sent -- [address] [facility] [phone] -- [facility] Pending - No Request Sent -- [address] [facility] [phone] -- [facility] [place] [facility]. Acute Rehab Pending - No Request Sent -- [address] [facility] [phone] -- Family Support (Name and Phone): Extended Emergency Contact Information Primary Emergency Contact: Anamaria Gomez weipass Relation: Daughter Secondary Emergency Contact: Lilliam Campbell [place] Relation: Grandchild Preferred language: Estonian Audio Video Repairer needed? No Transportation at Discharge: Family: EMS READMISSION RISK SCORE is 14 at 11:12 AM 10/08/2024.: [email or web address] JEAN BENNETT MA-Certification, A.D.N, BSN [phone] OW REPRESENTATIVE * Izabel Yoder, RICH - 10/08/2024 10:32 AM CST [facility] Physical Therapy Progress Note Patient: Lucian Sosa Med Record Number: [id number] Date of : 1940 Age: [age] year [...] as Tolerated Spine Precautions: Yes Spine Precautions: [place] OBJECTIVE: At start of therapy session, patient [...] assist with appropriate AD - added 10/08 Mirror Polisher Goal(s): Patient to discharge to appropriate next [...] nick lift for transfer back to bed. OW REPRESENTATIVE * Tessa Gonzáles PA-C - 10/08/2024 8:17 [...] during exam, does not verbally respond. 10/06: CALREE, TF initiated through PEG, Pt alert to [...] discussed with family and extubated patient to AR. 1-2 hours following extubation, patient required escalation to NRB and HFNC, thus re-intubated. Again doing well on vent per ABG and SPO2. Levo weaned to 0.01, precedex increased to 0.09 due to pt pulling at ETT and lines. Graham removed againovernight per nurse exhibitions and collections manager, however pt straight cathed x2 for [...] 3 mL Inhalation q6h PRN Kathy Mendoza, FORM WORKER-MYRNA aspirin chew tablet 81 mg 81 mg [...] patch 2 patch Transdermal q24h Kathy Mendoza, FORM WORKER-MYRNA 2 patch at112/08/23 0804 melatonin tablet 5 [...] 17 g Enteral Tube QDAY Kathy Mendoza, FORM WORKER-RESEARCH ENGINEER 17 gat 10/07/24 0804 senna (Senokot) tablet 17.2 mg 17.2 mg Enteral Tube QDAY Kathy Mendoza, FORM WORKER- RESEARCH ENGINEER 17.2 mg at 10/07/24 0803 tamsulosin (Flomax) [...] placement. Tessa Gonzáles PA-C 10/08/2024 8:18 AM OW REPRESENTATIVE Associated attestation - Bong Edmondson MD - 10/09/2024 7:41 AM ESCROW REPRESENTATIVE Patient seen and examined with the residents. [...] 84 year old, male : 1940 CSN: [id number] Primary Care Physician: No primary care provider [...] results for input(s): INR in the last 31255 hours. Physical Exam General: Not following commands, [...] questions or concerns. Please do not use [employer] Secure Chat for communications regarding direct patient care. [facility] Orthopedic Surgery office contact information: [facility] at [address], [place] [address] [place] [address] [facility] at [address] [place], [place] [id number] Asa Massey MD 10/08/2024 5:24 AM OW REPRESENTATIVE Associated attestation - Keegan Collier MD - 10/08/2024 9:46 AM ESCROW REPRESENTATIVE Please see the note performed by our team's Resident. The patient was discussed with the note mortgage underwriter. I did not personally see the patient; I reviewed the imaging independently, discussed the physical exam findings with the note mortgage underwriter, and reviewed thepertinent information in the medical [...] is needed from ourteam. Tigist Caceres, MSN, FORM WORKER, [facility] Palliative Care Nurse Practitioner Office: [phone] Pager: [phone] OW REPRESENTATIVE * Tessa Rodriguez RD/EMMETT - 10/07/2024 2:09 PM CST BRIEF SYNOPSIS: [...] Route: TF Labs: Recent Labs Component Name 10/06/2461110/02/24 2342 10/02/24 0340 09/14/24 1129 09/14/24 0013 [...] 4.0 3.3 3.1 Recent Labs Component Name 10/06/2461110/01/24 0717 09/30/24 0125 MAGNESIUM 2.4 2.4 2.3 [...] with current goal Tessa Rodriguez RD/EMMETT Ascom:[id number] OW REPRESENTATIVE * Yolanda Juárez COTA - 10/07/2024 11:25 AM CST [facility] Department of Physical Medicine & Rehabilitation Progress Note Patient: Lucian Sosa Med Record Number: [id number] Date of : 1940 Age: [age] year old 10/07/24 0915 Missed Visit Missed Visit Refused Patient refused therapy intervention due to RN Notified of Refusal Patient not following commands on arrival. Attempted tactile, verbal, painful and cold stimuli. Patient does not respond with any meaningful response. RNMarzena, made aware. OW REPRESENTATIVE * Yolanda Juárez ZELAYA - 10/07/2024 11:25 AM CST [facility] Occupational Therapy Progress Note Patient: Lucian Sosa Med Record Number: [id number] Date of : 1940 Age: [age] year [...] bring washcloth to mouth) ACTIVITY TOLERANCE: Modified [place]: AM-PAC 6 Clicks Daily Activity Raw Score:: [...] sit with moderate assist and X 2 Nursing Home Goal(s): Patient to discharge to appropriate [...] fall mats in place, all lines/tubes intact. OW REPRESENTATIVE * Izabel Yoder, PT - 10/07/2024 11:25 AM CST [facility] Physical Therapy Progress Note Patient: Lucian Sosa Med Record Number: [id number] Date of : 1940 Age: [age] year [...] as Tolerated Spine Precautions: Yes Spine Precautions: [place] OBJECTIVE: At start of therapy session, patient [...] EOB x10 minutes with fair sitting balance Mirror Polisher Goal(s): Patient to discharge to appropriate next [...] all lines/tubes intact, in chair position . OW REPRESENTATIVE * Izabel Yoder, PT - 10/07/2024 9:13 AM CST [facility] Department of Physical Medicine & Rehabilitation Progress Note Patient: Lucian Sosa Med Record Number: [id number] Date of : 1940 Age: [age] year old 10/07/24 0913 Missed Visit Missed Visit Other (Comment) Patient not following commands on arrival. Attempted tactile, verbal, painful and cold stimuli. Patient does not respond with any meaningful response. RN made aware. OW REPRESENTATIVE * Ivana Santamaria RN - 10/07/2024 9:07 [...] more.: Never true Name: Ivana Santamaria RN OW REPRESENTATIVE * Tessa Gonzáles PA-C - 10/07/2024 8:48 [...] 100mg TID. 09/24: Patient extubated yesterday to AR. Remains stable on 6L NC. Dobhoff placed [...] discussed with family and extubated patient to AR. 1-2 hours following extubation, patient required escalation to NRB and HFNC, thus re-intubated. Again doing well on vent per ABG and SPO2. Levo weaned to 0.01, precedex increased to 0.09 due to pt pulling at ETT and lines. Graham removed againovernight per nurse exhibitions and collections manager, however pt straight cathed x2 for [...] F, DO 81 mg at 10/07/24 0803 enoxaparin [...] 17 g Enteral Tube QDAY Kathy Mendoza, FORM WORKER-RESEARCH ENGINEER 17 gat 10/07/24 0804 senna (Senokot) tablet 17.2 mg 17.2 mg Enteral Tube QDAY Kathy Mendoza, FORM WORKER- RESEARCH ENGINEER 17.2 mg at 10/07/24 0803 tamsulosin (Flomax) [...] placement. Tessa Gonzáles PA-C 10/07/2024 8:48 AM OW REPRESENTATIVE Associated attestation - Bong Edmondson MD - 10/07/2024 3:08 PM ESCROW REPRESENTATIVE Patient seen and examined with the residents. [...] Lucian Sosa Age: [age] year old Room: 236/967x Date Admitted: 09/13/2024 Interval History: Patient seen [...] , INR , PTT in the last 45683 hours. Vitamin D Recent Labs Component Name 09/14/24 0013 [id number] 17.9* Vitals BP 112/63 (BP Location: Left [...] please contact Ortho Trauma APPs or send PM Pediatrics chat to PATRIC. For urgent questions, please page Ortho Trauma service pager through [employer]. To avoid delays in communication and patient care, please do not use [employer] Secure Chat. Patient will require follow up in the office with Dr. Roldan 2 week(s) after discharge. Ortho office staff to help arrange. Please notify Ortho Trauma PATRIC when patient is ready for discharge. Patient should have XR pelvis, left scapula at follow up. Contact information below: [facility] Office Schedulers: [phone], option 1 Francisco Garcia MD 10/07/2024 6:14 AM OW REPRESENTATIVE Associated attestation - Marcella Roldan MD - 10/11/2024 8:40 AM ESCROW REPRESENTATIVE ATTENDING ADDENDUM: Patient discussed during rounds. I [...] Gomez Mobile Relation: Daughter [facility] [place] Relation: Grandchild Preferred language: Estonian Audio Video Repairer needed? No Comments: SW attempted to call daughter for SNF preferences, as previous SW sent ARU referrals. PT OT recommends SNF. SW left VM and callback number. Pt still in restraints. Name/Phone number: EASTON Espinoza [phone] OW REPRESENTATIVE * Orlando Grimes RN - 10/06/2024 12:03 PM CST Care Coordination Progress Note Expected Discharge Date: 10/06/2024 Discharge Plan: SNF recommended for this patient. CM will continue to follow Family Support (Name and Phone): Extended Emergency Contact Information Primary Emergency Contact: Anamaria Gomez Mobile Relation: Daughter Secondary Emergency Contact: [facility] Relation: Grandchild Preferred language: Estonian Audio Video Repairer needed? No Transportation at Discharge: Family: READMISSION RISK SCORE is 14 at 12:03 PM 10/06/2024.: Name: Orlando Grimes RN OW REPRESENTATIVE * Kathy Mendoza, FORM WORKER-RESEARCH ENGINEER - 10/06/2024 8:21 AM CST Trauma Floor [...] discussed with family and extubated patient to AR. 1-2 hours following extubation, patient required escalation to NRB and HFNC, thus re-intubated. Again doing well on vent per ABG and SPO2. Levo weaned to 0.01, precedex increased to 0.09 due to pt pulling at ETT and lines. Graham removed againovernight per nurse exhibitions and collections manager, however pt straight cathed x2 for [...] mg 0.5 mg Intravenous q10 min PRN NaChris johnson Anes Asst labetalol (Normodyne; Trandate) injection 5 mg 5 mg Intravenous post-OP multiple NayeemChris Anes Asst lidocaine (Lidoderm) 5 % patch 2 patch 2 patch Transdermal q24h Kathy MendozaABDIAZIZ-RESEARCH ENGINEER 2 patch at112/06/23 0953 melatonin tablet 5 mg 5 mg Enteral Tube AT BEDTIME Tessa Gonzáles PA-C 5 mg at 10/05/24 2111 naloxone (Narcan) injection 0.04 mg 0.04 mg Intravenous post-OP multiple NaChris johnson Anes Asst ondansetron (Zofran) injection 4 mg 4 mg Intravenous Once PRN NaChris johnson Anes Asst oxyCODONE (immediate release) (Roxicodone) tablet [...] QDAY Thang Gaines, DO 0.4 mg at 10/05/24 0953 traZODone [...] following -Pivot 1.5 at 45 ml/hr -LBM: 09/30/ -Bowel regimen: Senna, Miralax, fiber to TF, [...] started, wean restraints, SNF placement Kathy Mendoza APRN-RESEARCH ENGINEER 10/06/2024 8:44 AM OW REPRESENTATIVE Associated attestation - Bong Edmondson MD - 10/07/2024 3:08 PM ESCROW REPRESENTATIVE Patient seen and examined with the residents. [...] 12.5mg D50, order implemented and rechecked blood xscdm=[id number]. Condition update provided to Dr Mayfield, received okay to transfer out of PACU, will implement. OW REPRESENTATIVE * Kristen Gregory, OT - 10/05/2024 4:24 PM CST [facility] Medicine and Rehabilitation Occupational Therapy Progress Note Patient: Lucian Sosa Med Record Number: [id number] Date of : 1940 Age: [age] year [...] bearing) Activity Level: Activity as Tolerated (in [place]) Spine Precautions: Yes Spine Precautions: [place] SUBJECTIVE: Subjective: Patient agreeable to treatment session, [...] sit with moderate assist and X 2 Nursing Home Goal(s): Patient to discharge to appropriate [...] with family in room, all lines/tubes intact. OW REPRESENTATIVE * Charlene Milligan MSW - 10/05/2024 4:11 PM CST SW following pt for SNF acceptance. Pt will need insurance auth. Charlene Munson [phone] OW REPRESENTATIVE * Bong Edmondson MD - 10/05/2024 2:09 PM CST Plan for OR today for percutaneous endoscopic gastrostomy tube placement. Bong Edmondson MD OW REPRESENTATIVE * Jeanine Orozco, PT - 10/05/2024 2:05 PM CST [facility] Department of Physical Medicine & Rehabilitation Progress Note Patient: Lucian Sosa Med Record Number: [id number] Date of : 1940 Age: [age] year old 10/05/24 1405 Missed Visit Missed Visit Other (Comment) Attempted PT session with OT. Pt drowsy with minimal command following/participation. OT proceeded with bed level session. Will cont to follow. OW REPRESENTATIVE * Tesha Jimenez RD/NABOR - 10/05/2024 1:10 [...] wound to lower leg Estimated Needs: KCAL: 7826-9013 (25-30kcal/kg (ABW)) Protein (g): 85-110g (1.0-1.3g/kg (ABW)) [...] Progress: Continue with current goal [id number] OW REPRESENTATIVE * Tessa Gonzáles PA-C - 10/05/2024 8:16 [...] 100mg TID. 09/24: Patient extubated yesterday to AR. Remains stable on 6L NC. Dobhoff placed [...] discussed with family and extubated patient to AR. 1-2 hours following extubation, patient required escalation to NRB and HFNC, thus re-intubated. Again doing well on vent per ABG and SPO2. Levo weaned to 0.01, precedex increased to 0.09 due to pt pulling at ETT and lines. Graham removed againovernight per nurse exhibitions and collections manager, however pt straight cathed x2 for [...] patch 2 patch 2 patch Transdermal q24h Jose Martinabhijeet Kathy Aguilar, FORM WORKER-RESEARCH ENGINEER 2 patch at112/05/23 0951 oxyCODONE (immediate release) [...] restraints. Tessa Gonzáles PA-C 10/05/2024 8:16 AM OW REPRESENTATIVE Associated attestation - Bong Edmondson MD - 10/05/2024 6:13 PM ESCROW REPRESENTATIVE Patient seen and examined with the residents. [...] injury from restraints Description: INTERVENTIONS: Outcome: Progressing OW REPRESENTATIVE * Rock Aldridge CHARTERED WEALTH MANAGER - 10/04/2024 4:28 PM CST Social Work Progress Note MAGALI spoke to Anamaria Gomez (Daughter) [phone] and she would like to discuss her options for rehab in [place] as well as [place] for now. SW will email her a list to [email or web address] and she will give a decision on tomorrow. MAGALI will continue to follow up for any further discharge needs. Discharge Plan Disposition: Transportation (if ambulance rationale): Transportation at discharge: Family Anticipated Discharge Date: 10/06/2024 Contacts: Extended Emergency Contact Information Primary Emergency Contact: Anamaria Gomez Mobile Relation: Daughter Secondary Emergency Contact: [facility] Relation: Grandchild Preferred language: Estonian Audio Video Repairer needed? No Have they been contacted? Name/Phone number: EASTON Diaz [phone] OW REPRESENTATIVE * Orlando Grimes RN - 10/04/2024 2:53 PM CST Care Coordination Progress Note Expected Discharge Date: 10/06/2024 Discharge Plan: ARU is recommended. Patient is not medically ready at this time. CM will continue to follow patient for any additional discharge needs Family Support (Name and Phone): Extended Emergency Contact Information Primary Emergency Contact: Salvador Gomeza Mobile Relation: Daughter Secondary Emergency Contact: [facility] Relation: Grandchild Preferred language: Estonian Audio Video Repairer needed? No Transportation at Discharge: Family: READMISSION RISK SCORE is 14 at 2:53 PM 10/04/2024.: Name: Orlando Grimes RN OW REPRESENTATIVE * Kd Marin RN - 10/04/2024 12:38 PM CST [facility] Rehab Update: Pt is being reviewed by [facility] Rehab for acceptance pending insurance authorization and medical stability. Will send for auth once all medical tests and procedures have been completed. Will continue to monitor for medical stability and participation in therapies. Thank you for the referral. Woody Marin Clincal Liaison. APOLONIA HOWELL, RN [email or web address] Preferred method of communication: Epic Chat OW REPRESENTATIVE * Tracy Rico - 10/04/2024 12:04 PM CST Nursing Program Chair met with pt during rounds; he is not alert and oriented but I spoke to him and prayed withhim for healing and peace. Pastoral care support remains available 19/05. 628 Tracy Rico, Board Certified Nursing Program Chair For Follow Up: 6 [facility] Nursing Program Chair: [id number] On-Call Nursing Program Chair: [id number] OW REPRESENTATIVE * Kd Lacey, CARLENE - 10/04/2024 11:45 AM CST [facility] Swallow Therapy Patient: Lucian Sosa Med Record Number: [id number] Date of : 1940 Age: [age] year [...] Impression - Pharyngeal: Severe Education/Interventions: While performing NURSE AUDITOR, Patient was instructed in: results of swallow [...] oropharyngeal swallow function to warrant diet upgrade. Mirror Polisher Goal (s): Patient to be independent/baseline with functional mobility and self care and be able to safely discharge to prior level of care. Kd Munson M.A., SHAYNA-NURSE AUDITOR Speech Language Pathologist [phone] OW REPRESENTATIVE * Lilliam Nicholson APRN-CNP - 10/04/2024 8:32 [...] Department of Orthopaedic Surgery 8:32 AM 10/04/2024 OW REPRESENTATIVE * Kathy Mendoza, CONSTANZA - 10/04/2024 8:29 AM CST Trauma Floor Progress Note Admit Date: 09/13/2024 Subjective: HPI: Level 1 trauma following high [...] 100mg TID. 09/24: Patient extubated yesterday to AR. Remains stable on 6L NC. Dobhoff placed [...] discussed with family and extubated patient to AR. 1-2 hours following extubation, patient required escalation to NRB and HFNC, thus re-intubated. Again doing well on vent per ABG and SPO2. Levo weaned to 0.01, precedex increased to 0.09 due to pt pulling at ETT and lines. Graham removed againovernight per nurse exhibitions and collections manager, however pt straight cathed x2 for [...] AT BEDTIME Tessa Gonzáles PA-C 12.5 mg at112/04/232124 sodium chloride (Inhalant) 7 % nebulizer solution 4 mL 4 mL Inhalation BID Tsesa Gonzáles PA-C 4 mLat 10/03/24 204 tamsulosin [...] -Tdap: Needs still -imaging: n/a -CBC daily -mnazo scan, culture, and skin check for fevers [...] TP fracture -Ospine consulted - AAT in [place] - uprights when able -Uprights performed, need [...] OR Kathy Mendoza APRN-MYRNA 10/04/2024 6:58 PM OW REPRESENTATIVE Associated attestation - Bong Edmondson MD - 10/05/2024 6:12 PM ESCROW REPRESENTATIVE Patient seen and examined with the residents. [...] safe consumption of daily meals Outcome: Progressing OW REPRESENTATIVE * Tessa Gonzáles PA-C - 10/03/2024 8:27 [...] discussed with family and extubated patient to AR. 1-2 hours following extubation, patient required escalation to NRB and HFNC, thus re-intubated. Again doing well on vent per ABG and SPO2. Levo weaned to 0.01, precedex increased to 0.09 due to pt pulling at ETT and lines. Graham removed againovernight per nurse exhibitions and collections manager, however pt straight cathed x2 for [...] q12h Yolanda Crane, DO 30 mg at 10/03/24 0817 furosemide [...] Tube QDAY Luis Eugene MD 17 g at112/04/23825 QUEtiapine (SEROquel) tablet 12.5 mg 12.5 mg [...] TP fracture -Ospine consulted - AAT in [place] - uprights when able -Uprights performed, need [...] eval. Tessa Gonzáles PA-C 10/03/2024 8:28 AM OW REPRESENTATIVE Associated attestation - Yasmin Milligan MD - 10/03/2024 8:06 PM ESCROW REPRESENTATIVE I saw and evaluated the patient on the date of service. I discussed the plan of care with the resident. I reviewed all relevant labs, rads myself. Agree with note, except as documented here. Yasmin Milligan MD 10/03/2024 8:06 PM * Shandra Alvarado NURSE AUDITOR - 10/02/2024 4:12 PM CST 10/02/24 1600 Missed Visit Missed Visit (sched conflict, with other discipline at time visit attempted) OW REPRESENTATIVE * Yasmin Milligan MD - 10/02/2024 12:53 PM CST Some intermittent shortness of breath, but same 4L NC compared to yest. Same interaction as yesterday per [employer]. CXR actually improved from 09/28. WBC improved although still elevated. Minimally working with PT. Still in restraints. Will increase to q2hr vitals with cont pulse ox. Will follow closely with serial exams. He is frail and elderly and at high risk of decompensation. Yasmin Milligan MD 10/02/2024 12:56 PM OW REPRESENTATIVE * Tessa Gonzáles PA-C - 10/02/2024 9:11 [...] discussed with family and extubated patient to AR. 1-2 hours following extubation, patient required escalation to NRB and HFNC, thus re-intubated. Again doing well on vent per ABG and SPO2. Levo weaned to 0.01, precedex increased to 0.09 due to pt pulling at ETT and lines. Graham removed againovernight per nurse exhibitions and collections manager, however pt straight cathed x2 for [...] TP fracture -Ospine consulted - AAT in [place] - uprights when able -Uprights performed, need [...] weekend. Tessa Gonzáles PA-C 10/02/2024 9:12 AM OW REPRESENTATIVE Associated attestation - Yasmin Milligan MD - 10/03/2024 8:06 PM ESCROW REPRESENTATIVE I saw and evaluated the patient on [...] safe consumption of daily meals Outcome: Progressing OW REPRESENTATIVE * Kristen Gregory OT - 10/01/2024 4:03 PM CST [facility] Occupational Therapy Progress Note Patient: [facility] Record Number: [id number] Date of : 1940 Age: [age] year [...] bearing) Activity Level: Activity as Tolerated (in [place]) Spine Precautions: Yes Spine Precautions: [place] SUBJECTIVE: Subjective: (P) Patient agreeable to treatment [...] sit with moderate assist and X 2 Nursing Home Goal(s): Patient to discharge to appropriate [...] light within reach, with family in room. OW REPRESENTATIVE * Charlene Milligan MSW - 10/01/2024 2:41 PM CST [facility]ALI acknowledges PT OT recs for SNF. Pt not medically ready for SNF, SW will wait to send referrals when pt more appropriate. Charlene Munson [phone] OW REPRESENTATIVE * Jeanine Orozco, PT - 10/01/2024 1:51 PM CST [facility] Physical Therapy Progress Note Patient: Lucian Sosa Med Record Number: [id number] Date of : 1940 Age: [age] year [...] bearing) Activity Level: Activity as Tolerated (in [place]) Spine Precautions: Yes Spine Precautions: [place] OBJECTIVE: At start of therapy session, patient [...] EOB x10 minutes with fair sitting balance Nursing Home Goal(s): Patient to discharge to appropriate [...] visible on white board, all lines/tubes intact. OW REPRESENTATIVE * Keegan Schmid, FORM WORKER-RESEARCH ENGINEER - 10/01/2024 12:48 PM CST GERIATRIC MEDICINE [...] , INR , APTT in the last 38599 hours. Cardiac markers: Recent Labs Component Name 09/30/24 1536 BNP 167* Microbiology: Light pseudamonda on 09/18 sputum cx Treated with Cefepime 09/20-09/27 Imaging: XR Scapula Left Result Date: 09/30/2024 IMPRESSION: Unchanged in alignment of superior scapular fracture. > Dictated by Manjula Bruno MD, (vice president planning). I, Pratima Haynes MD have personally reviewed [...] Schmid, ANP-, Geriatrics 10/01/2024 12:49 PM Pager: [phone] OW REPRESENTATIVE Associated attestation - Jose Knight MD - 10/02/2024 12:55 PM ESCROW REPRESENTATIVE I saw and examined the patient with [...] details. 10/01/2024 12:43 PM Francisco Gould MD OW REPRESENTATIVE * Orlando Grimes RN - 10/01/2024 12:18 PM CST Care Coordination Progress Note Expected Discharge Date: 10/04/2024 Discharge Plan: SNF recommended as the discharge plan. Patient is not medically ready at this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 Unknown Venipuncture / Unknown 09/30/2024 12:34 AM ESCROW REPRESENTATIVE 09/30/2024 12:40 AM ESCROW REPRESENTATIVE Gibran Grnade PA-C LAB - HEMATOLOGY ORDERABLES Performing Organization Address [facility] Co de Phone Number [address] [address], [facility] [phone] * (ABNORMAL) CALCIUM IONIZED WHOLE BLOOD (09/30/2024 12:34 AM ESCROW REPRESENTATIVE) Calcium Ionized 0.98 mmol/L 09/30/2024 12:41 AM [facility] pH 7.56(H) 7.35 - 7.45 pH 09/30/2024 12:41 AM [facility] Ionized Calcium pH Adjusted 1.05(L) 1.19 - 1.34 mmol/L 09/30/2024 12:41 AM [facility] Blood BLOOD SPECIMEN / Unknown Venipuncture / Unknown 09/30/2024 12:34 AM ESCROW REPRESENTATIVE 09/30/2024 12:38 AM ESCROW REPRESENTATIVE Gibran Grande PA-C LAB - CHEMISTRY O RDERABLES Performing Organization Address [facility] de Phone Number [address] [address], [facility] [phone] * XR Pelvis Judet Views (09/29/2024 5:00 PM ESCROW REPRESENTATIVE) Anatomical Region Laterality Modality Pelvis Digital Radiogra phy 09/30/2024 9:51 AM ESCROW REPRESENTATIVE Narrative 09/30/2024 11:26 AM ESCROW REPRESENTATIVE PROCEDURE: ??XR PELVIS JUDET VIEWS, XR PELVIS AP W INLET OUTLET DATE/TIME OF EXAM: ??09/29/2024 5:45 PM CLINICAL INFORMATION: None relevant/not provided if blank. Indication: S32.9XXA: Closed displaced fracture of pelvis, unspecified part of pelvis, initial encounter ([facility]) Additional History: ADDITIONAL CLINICAL INFORMATION: Ordering Provider Reason For Exam: ??- B/L pubic root fx extending to anterior tab - L inferior pubic ramus - L Sacral ala fx (accession [id number]), - B/L pubic root fx extending to anterior tab (accession [id number]) COMPARISON: X-ray pelvis 09/21/2024. TECHNIQUE: AP and [...] intact. > Dictated by Manjula Bruno MD, (vice president planning). I, Pratima Haynes MD have personally reviewed [...] of pelvis, unspecifiedpart of pelvis, initial encounter ([facility]) Additional History: ADDITIONAL CLINICAL INFORMATION: Ordering Provider Reason For Exam: - B/L pubic root fx extending to anterior tab - L inferior pubic ramus - L Sacral ala fx (accession [id number]), - B/L pubic root fx extending to anterior tab (accession [id number]) COMPARISON: X-ray pelvis 09/21/2024. TECHNIQUE: AP and [...] intact. > Dictated by Manjula Bruno MD, (vice president planning). Pratima Casey MD have personally reviewed and interpreted this examination/study. > Interpreting Provider: Pratima Haynes MD on 09/30/2024 11:26 AM Gabriela Perales PA-C DIAGNOSTIC IMAGING ORDERABLES * XR Pelvis AP W Inlet Outlet (09/29/2024 5:00 PM ESCROW REPRESENTATIVE) Anatomical Region Laterality Modality Pelvis Digital Radiogra phy 09/30/2024 9:51 AM ESCROW REPRESENTATIVE Narrative 09/30/2024 11:26 AM ESCROW REPRESENTATIVE PROCEDURE: ??XR PELVIS JUDET VIEWS, XR PELVIS AP W INLET OUTLET DATE/TIME OF EXAM: ??09/29/2024 5:45 PM CLINICAL INFORMATION: None relevant/not provided if blank. Indication: S32.9XXA: Closed displaced fracture of pelvis, unspecified part of pelvis, initial encounter ([facility]) Additional History: ADDITIONAL CLINICAL INFORMATION: Ordering Provider Reason For Exam: ??- B/L pubic root fx extending to anterior tab - L inferior pubic ramus - L Sacral ala fx (accession [id number]), - B/L pubic root fx extending to anterior tab (accession [id number]) COMPARISON: X-ray pelvis 09/21/2024. TECHNIQUE: AP and [...] intact. > Dictated by Manjula Bruno MD, (vice president planning). Pratima Casey MD have personally reviewed and interpreted this examination/study. > Interpreting Provider: Pratima Haynes MD on 09/30/2024 11:26 AM Procedure Note Pratima Haynes MD - 09/30/2024 PROCEDURE: XR PELVIS JUDET VIEWS, XR PELVIS AP W INLET OUTLET DATE/TIME OF EXAM: 09/29/2024 5:45 PM CLINICAL INFORMATION: None relevant/not provided if blank. Indication: S32.9XXA: Closed displaced fracture of pelvis, unspecifiedpart of pelvis, initial encounter ([facility]) Additional History: ADDITIONAL CLINICAL INFORMATION: Ordering Provider Reason For Exam: - B/L pubic root fx extending to anterior tab - L inferior pubic ramus - L Sacral ala fx (accession [id number]), - B/L pubic root fx extending to anterior tab (accession [id number]) COMPARISON: X-ray pelvis 09/21/2024. TECHNIQUE: AP and [...] intact. > Dictated by Manjula Bruno MD, (vice president planning). Pratima Casey MD have personally reviewed and interpreted this examination/study. > Interpreting Provider: Pratima Haynes MD on 09/30/2024 11:26 AM Gabriela Perales PA-C DIAGNOSTIC IMAGING ORDERABLES * XR Scapula Left (09/29/2024 5:00 PM ESCROW REPRESENTATIVE) Anatomical Region Laterality Modality Upper Extremity Digital Radiogra phy 09/30/2024 10:0 4 AM ESCROW REPRESENTATIVE Impressions 09/30/2024 11:47 AM ESCROW REPRESENTATIVE IMPRESSION: Unchanged in alignment of superior scapular fracture. > Dictated by Manjula Bruno MD, (vice president planning). Pratima Casey MD have personally reviewed and interpreted this examination/study. > Interpreting Provider: Pratima Haynes MD on 09/30/2024 11:47 AM Narrative 09/30/2024 11:47 AM ESCROW REPRESENTATIVE PROCEDURE: ??XR SCAPULA LEFT DATE/TIME OF EXAM: [...] fracture. > Dictated by Manjula Bruno MD, (vice president planning). I, Pratima Haynes MD have personally reviewed and interpreted this examination/study. > Interpreting Provider: Pratima Haynes MD on 09/30/2024 11:47 AM Gabriela Perales PA-C DIAGNOSTIC IMAGING ORDERABLES * XR Chest 1Vw Portable (09/29/2024 4:29 AM ESCROW REPRESENTATIVE) Anatomical Region Laterality Modality Chest Digital Radiogra phy 09/29/2024 9:33 AM ESCROW REPRESENTATIVE Narrative 09/29/2024 11:33 PM ESCROW REPRESENTATIVE EXAMINATION: XR CHEST 1VW PORTABLE DATE/TIME OF EXAM: ??09/29/2024 4:29 AM, LOCATION ??[facility] HISTORY: S22.43XA: Multiple fractures of ribs, [...] obscured. Report dictated by Valerio Mckay DO, (Material Handler 2Nd Shift). Layo Casey MD have personally reviewed and interpreted this examination/study. > Interpreting Provider: Layo Adhikari MD on 09/29/2024 11:33 PM Procedure Note Layo Adhikari MD - 09/29/2024 EXAMINATION: XR CHEST 1VW PORTABLE DATE/TIME OF EXAM: 09/29/2024 4:29 AM, LOCATION [facility] HISTORY: S22.43XA: Multiple fractures of ribs, [...] obscured. Report dictated by Valerio Mckay DO, (Material Handler 2Nd Shift). Layo Casey MD have personally reviewed and interpreted this examination/study. > Interpreting Provider: Layo Adhikari MD on 09/29/2024 11:33 PM Kendal Demarco MD DIAGNOSTIC IMAGING O RDERABLES * PHOSPHORUS BLOOD (09/29/2024 12:18 AM ESCROW REPRESENTATIVE) [facility] Signature Phosphorus 3.3 2.8 - 5.1 mg/dL 09/29/2024 1:00 AM [facility] Blood BLOOD SPECIMEN / Unknown Venipuncture / Unknown 09/29/2024 12:18 AM ESCROW REPRESENTATIVE 09/29/2024 12:32 AM ESCROW REPRESENTATIVE Gibran Grande PA-C LAB - CHEMISTRY O RDERABLES [address] [address], [facility] [phone] * MAGNESIUM BLOOD (09/29/2024 12:18 AM ESCROW REPRESENTATIVE) Magnesium 2.4 1.6 - 2.6 mg/dL 09/29/2024 1:00 AM [facility] Blood BLOOD SPECIMEN / Unknown Venipuncture / Unknown 09/29/2024 12:18 AM ESCROW REPRESENTATIVE 09/29/2024 12:32 AM ESCROW REPRESENTATIVE Gibran Grande PA-C LAB - CHEMISTRY O RDERABLES [address] [address], [facility] [phone] * (ABNORMAL) CBC W/O DIFFERENTIAL (09/29/2024 12:18 AM ESCROW REPRESENTATIVE) WBC 21.0(H) 4.0 - 10.7 x10E9/L 09/29/2024 1:46 AM [facility] RBC Count 2.80(L) 4.30 - 5.80 x10E12/L 09/29/2024 1:46 AM [facility] Hemoglobin 8.5(L) 13.3 - 17.5 g/dL 09/29/2024 1:46 AM [facility] Hematocrit 27.3(L) 38.7 - 51.1 % 09/29/2024 1:46 AM [facility] MCV 97.5 80.0 - 98.0 fL 09/29/2024 1:46 AM [facility] MCH 30.4 26.7 - 33.6 pg 09/29/2024 1:46 AM [facility] MCHC 31.1(L) 31.7 - 36.3 g/dL 09/29/2024 1:46 AM [facility] RDW-CV 17.7(H) 11.3 - 14.8 % 09/29/2024 1:46 AM [facility] Platelet Count 1,318(HH) 150 - 420 x10E9/L 09/29/2024 1:46 AM [facility] MPV 10.0 7.8 - 11.4 fL 09/29/2024 1:46 AM [facility] NRBC 0.5(H) <=0.0 /100 WBC 09/29/2024 1:46 AM [facility] Blood BLOOD SPECIMEN / Unknown Venipuncture / Unknown 09/29/2024 12:18 AM ESCROW REPRESENTATIVE 09/29/2024 12:32 AM ESCROW REPRESENTATIVE Gibran Grande PA-C LAB - HEMATOLOGY ORDERABLES Performing Organization Address City/[facility]/ZIP Co de Phone Number [address] [address], [place] [phone] * (ABNORMAL) CALCIUM IONIZED WHOLE BLOOD (09/29/2024 12:18 AM ESCROW REPRESENTATIVE) Calcium Ionized 1.15 mmol/L 09/29/2024 12:47 AM [facility] pH 7.40 7.35 - 7.45 pH 09/29/2024 12:47 AM [facility] Ionized Calcium pH Adjusted 1.15(L) 1.19 - 1.34 mmol/L 09/29/2024 12:47 AM [facility] Blood BLOOD SPECIMEN / Unknown Venipuncture / Unknown 09/29/2024 12:18 AM ESCROW REPRESENTATIVE 09/29/2024 12:28 AM ESCROW REPRESENTATIVE Gibran Grande PA-C LAB - CHEMISTRY O RDERABLES Performing Organization Address City/[facility]/ZIP Co de Phone Number [address] [address], [place] [phone] * (ABNORMAL) BASIC METABOLIC PANEL (CALCIUM TOTAL) (09/29/2024 12:18 AM ESCROW REPRESENTATIVE) BUN 24 7 - 26 mg/dL 09/29/2024 1:00 AM [facility] Creatinine 0.56(L) 0.71 - 1.16 mg/dL 09/29/2024 1:00 AM [facility] Sodium 145 136 - 145 mmol/L 09/29/2024 1:00 AM [facility] Potassium 4.3 3.5 - 4.5 mmol/L 09/29/2024 1:00 AM [facility] Chloride 107 98 - 107 mmol/L 09/29/2024 1:00 AM [facility] CO2 29 22 - 29 mmol/L 09/29/2024 1:00 AM [facility] Glucose 151(H) 70 - 99 mg/dL 09/29/2024 1:00 AM [facility] Calcium 8.0(L) 8.4 - 10.2 mg/dL 09/29/2024 1:00 AM [facility] Anion Gap 9 6 - 16 09/29/2024 1:00 AM [facility] BUN/Creatinine Ratio 43(H) 7 - 23 09/29/2024 1:00 AM [facility] Osmolality Calculated 307(H) 275 - 295 mOsm/kg 09/29/2024 1:00 AM [facility] eGFR by CKD-EPI >90 >=90 mL/min/1.7 3 m2 09/29/2024 1:00 AM [facility] Blood BLOOD SPECIMEN / Unknown Venipuncture / Unknown 09/29/2024 12:18 AM ESCROW REPRESENTATIVE 09/29/2024 12:32 AM [facility] Gibarn Grande PA-C LAB - CHEMISTRY O RDERABLES [facility] [address] [place] [address], [facility] [phone] * XR Chest 1Vw Portable (09/28/2024 5:46 AM ESCROW REPRESENTATIVE) Anatomical Region Laterality Modality Chest Digital Radiogra phy 09/28/2024 8:58 AM ESCROW REPRESENTATIVE Narrative 09/28/2024 3:45 PM ESCROW REPRESENTATIVE PROCEDURE: ??XR CHEST 1VW PORTABLE, DATE/TIME OF EXAM: ??09/28/2024 5:46 AM, LOCATION ??[facility] INDICATION: Z97.8: Endotracheal tube present ADDITIONAL [...] obscured. Report dictated by Alex Huizar MD, (Material Handler 2Nd Shift). Maryanne Casey MD have personally reviewed and interpreted this examination/study. > Interpreting Provider: Maryanne Horner MD on 09/28/2024 3:45 PM Procedure Note Maryanne Horner MD - 09/28/2024 PROCEDURE: XR CHEST 1VW PORTABLE, DATE/TIME OF EXAM: 09/28/2024 5:46AM, LOCATION [facility] INDICATION: Z97.8: Endotracheal tube present ADDITIONAL [...] obscured. Report dictated by Alex Huizar MD, (Material Handler 2Nd Shift). Maryanne Casey MD have personally reviewed and interpreted this examination/study. > Interpreting Provider: Maryanne Horner MD on 09/28/2024 3:45 PM Kendal Demarco MD DIAGNOSTIC IMAGING O RDERABLES * PHOSPHORUS BLOOD (09/27/2024 11:35 PM ESCROW REPRESENTATIVE) Phosphorus 3.8 2.8 - 5.1 mg/dL 09/28/2024 12:13 AM ESCROW REPRESENTATIVE [facility] Blood BLOOD SPECIMEN / Unknown Venipuncture / Unknown 09/27/2024 11:35 PM ESCROW REPRESENTATIVE 09/27/2024 11:48 PM ESCROW REPRESENTATIVE Gibran Grande PA-C LAB - CHEMISTRY O RDERABLES [address] [address], [facility] [phone] * MAGNESIUM BLOOD (09/27/2024 11:35 PM ESCROW REPRESENTATIVE) Magnesium 2.2 1.6 - 2.6 mg/dL 09/28/2024 12:13 AM ESCROW REPRESENTATIVE [facility] Blood BLOOD SPECIMEN / Unknown Venipuncture / Unknown 09/27/2024 11:35 PM ESCROW REPRESENTATIVE 09/27/2024 11:48 PM ESCROW REPRESENTATIVE Gibran Grande PA-C LAB - CHEMISTRY O RDERAFRANCISCO [address] [address], [facility] [phone] * (ABNORMAL) CBC W/O DIFFERENTIAL (09/27/2024 11:35 PM ESCROW REPRESENTATIVE) WBC 22.2(H) 4.0 - 10.7 x10E9/L 09/28/2024 12:05 AM [facility] RBC Count 2.85(L) 4.30 - 5.80 x10E12/L 09/28/2024 12:05 AM [facility] Hemoglobin 8.8(L) 13.3 - 17.5 g/dL 09/28/2024 12:05 AM [facility] Hematocrit 27.6(L) 38.7 - 51.1 % 09/28/2024 12:05 AM [facility] MCV 96.8 80.0 - 98.0 fL 09/28/2024 12:05 AM [facility] MCH 30.9 26.7 - 33.6 pg 09/28/2024 12:05 AM [facility] MCHC 31.9 31.7 - 36.3 g/dL 09/28/2024 12:05 AM [facility] RDW-CV 18.2(H) 11.3 - 14.8 % 09/28/2024 12:05 AM [facility] Platelet Count 1,328(HH) 150 - 420 x10E9/L 09/28/2024 12:05 AM [facility] MPV 9.9 7.8 - 11.4 fL 09/28/2024 12:05 AM [facility] NRBC 0.8(H) <=0.0 /100 WBC 09/28/2024 12:05 AM [facility] Blood BLOOD SPECIMEN / Unknown Venipuncture / Unknown 09/27/2024 11:35 PM ESCROW REPRESENTATIVE 09/27/2024 11:48 PM ESCROW REPRESENTATIVE Gibran Grande PA-C LAB - HEMATOLOGY ORDERABLES Performing Organization Address [facility]/State/[facility] Co de Phone Number [facility] [address] [place] [phone] [phone] * (ABNORMAL) CALCIUM IONIZED WHOLE BLOOD (09/27/2024 11:35 PM ESCROW REPRESENTATIVE) Calcium Ionized 1.17 mmol/L 09/27/2024 11:50 PM [facility] pH 7.42 7.35 - 7.45 pH 09/27/2024 11:50 PM [facility] Ionized Calcium pH Adjusted 1.18(L) 1.19 - 1.34 mmol/L 09/27/2024 11:50 PM [facility] Blood BLOOD SPECIMEN / Unknown Venipuncture / Unknown 09/27/2024 11:35 PM ESCROW REPRESENTATIVE 09/27/2024 11:47 PM ESCROW REPRESENTATIVE Gibran Grande PA-C LAB - CHEMISTRY O RDERABLES [facility] [address] [place] [address], [facility] [phone] * (ABNORMAL) BASIC METABOLIC PANEL (CALCIUM TOTAL) (09/27/2024 11:35 PM ESCROW REPRESENTATIVE) BUN 22 7 - 26 mg/dL 09/28/2024 12:13 AM [facility] Creatinine 0.63(L) 0.71 - 1.16 mg/dL 09/28/2024 12:13 AM [facility] Sodium 143 136 - 145 mmol/L 09/28/2024 12:13 AM [facility] Potassium 4.5 3.5 - 4.5 mmol/L 09/28/2024 12:13 AM [facility] Chloride 110(H) 98 - 107 mmol/L 09/28/2024 12:13 AM [facility] CO2 27 22 - 29 mmol/L 09/28/2024 12:13 AM [facility] Glucose 95 70 - 99 mg/dL 09/28/2024 12:13 AM [facility] Calcium 8.4 8.4 - 10.2 mg/dL 09/28/2024 12:13 AM [facility] Anion Gap 6 6 - 16 09/28/2024 12:13 AM [facility] BUN/Creatinine Ratio 35(H) 7 - 23 09/28/2024 12:13 AM [facility] Osmolality Calculated 299(H) 275 - 295 mOsm/kg 09/28/2024 12:13 AM [facility] eGFR by CKD-EPI >90 >=90 mL/min/1.7 3 m2 09/28/2024 12:13 AM [facility] Blood BLOOD SPECIMEN / Unknown Venipuncture / Unknown 09/27/2024 11:35 PM ESCROW REPRESENTATIVE 09/27/2024 11:48 PM ESCROW REPRESENTATIVE Gibran Grande PA-C LAB - CHEMISTRY O RDERABLES Performing Organization Address City/[facility]/ZIP Co de Phone Number [facility] [address] [place] [address], [facility] [phone] * EKG 12-LEAD (09/27/2024 8:49 AM ESCROW REPRESENTATIVE) Ventricular Rate 148 BPM [facility] MUSE Atrial Rate 296 BPM [facility] MUSE QRS Duration ms 78 ms [facility] MUSE Q-T Interval ms 334 ms [facility] QTC Calculation (Bezet) 524 ms [facility] MUSE Calculated P [place] 103 degrees [facility] MUSE Calculated R [place] -33 degrees [facility] MUSE Calculated T [place] 118 degrees [facility] MUSE Interpretation EKG ATRIAL FLUTTER WITH 2:1 A-V CONDUCTION LEFT AXIS DEVIATION NONSPECIFIC ST AND T WAVE ABNORMALITY ABNORMAL ECG WHEN COMPARED WITH ECG OF 25-SEP-2024 16:26, atrial flutter has replaced sinus rhythm Confirmed by MAGALY CHE DO ([id number]) on 09/28/2024 3:21:12 PM [facility] MUSE 09/27/2024 8:49 AM ESCROW REPRESENTATIVE 09/28/2024 3:21 PM ESCROW REPRESENTATIVE Kendal Demarco MD ECG ORDERABLES Performing Organization Address [facility]/ZIP Co de Phone Number [facility] AIMEE * (ABNORMAL) BLOOD GASES ART + COOX PANEL (09/27/2024 6:21 AM ESCROW REPRESENTATIVE) pH Arterial 7.45 7.35 - 7.45 pH 09/27/2024 6:31 AM [facility] pO2 Arterial 73(L) 80 - 100 mmHg 09/27/2024 6:31 AM [facility] pCO2 Arterial 39 35 - 45 mmHg 6:31 AM [facility] HCO3 Arterial 27.1 20.0 - 30.0 mmol/L 09/27/2024 6:31 AM [facility] BE Arterial 2.9(H) -2.0 - 2.0 mmol/L 09/27/2024 6:31 AM [facility] Oxyhemoglobin Arterial 94.1 % 09/27/2024 6:31 AM [facility] Dexoyhemoglobin (HHB) % 2.9 % 09/27/2024 6:31 AM [facility] Methemoglobin 1.4 0.0 - 2.0 % 09/27/2024 6:31 AM [facility] Carboxyhemoglobin 1.6 0.0 - 2.0 % 2023 6:31 AM [facility] O2 Content Arterial 12.3 Interpret within clinical context ml/dL 09/27/2024 6:31 AM [facility] Hemoglobin by COOX 9.2(L) 12.0 - 17.6 g/dL 09/27/2024 6:31 AM [facility] O2 Saturation Arterial 97 90 - 100 % 09/27/2024 6:31 AM [facility] FI O2 Arterial 90.0 % 09/27/2024 6:31 AM [facility] Blood, arterial ARTERIAL BLOOD SPECIMEN / Unknown Arterial Puncture / Unknown 09/27/2024 6:21 AM ESCROW REPRESENTATIVE 09/27/2024 6:29 AM [facility] - 09/27/2024 6:31 AM [facility] Carboxyhemoglobin Normal Concentration: Non-smokers: 0-2%; Smokers: 0-9%; Toxic: >20% Kendal Demarco MD LAB - BLOOD GASES OR DERABLES [address] [address], [facility] [phone] * PHOSPHORUS BLOOD (09/27/2024 12:18 AM ESCROW REPRESENTATIVE) Phosphorus 2.9 2.8 - 5.1 mg/dL 09/27/2024 12:56 AM [facility] Blood BLOOD SPECIMEN / Unknown Venipuncture / Unknown 09/27/2024 12:18 AM ESCROW REPRESENTATIVE 09/27/2024 12:30 AM ESCROW REPRESENTATIVE Gibran Grande PA-C LAB - CHEMISTRY O RDERABLES Performing Organization Address City/[facility]/ZIP Co de Phone Number [address] [address], [place] [phone] * MAGNESIUM BLOOD (09/27/2024 12:18 AM ESCROW REPRESENTATIVE) Magnesium 2.3 1.6 - 2.6 mg/dL 09/27/2024 12:56 AM [facility] Blood BLOOD SPECIMEN / Unknown Venipuncture / Unknown 09/27/2024 12:18 AM ESCROW REPRESENTATIVE 09/27/2024 12:30 AM ESCROW REPRESENTATIVE Gibran Grande PA-C LAB - CHEMISTRY O RDERABLES [facility] [address] [place] [address], [facility] [phone] * (ABNORMAL) CBC W/O DIFFERENTIAL (09/27/2024 12:18 AM ESCROW REPRESENTATIVE) WBC 24.4(H) 4.0 - 10.7 x10E9/L 09/27/2024 12:55 AM [facility] RBC Count 2.83(L) 4.30 - 5.80 x10E12/L 09/27/2024 12:55 AM [facility] Hemoglobin 8.5(L) 13.3 - 17.5 g/dL 09/27/2024 12:55 AM [facility] Hematocrit 27.1(L) 38.7 - 51.1 % 09/27/2024 12:55 AM [facility] MCV 95.8 80.0 - 98.0 fL 09/27/2024 12:55 AM [facility] MCH 30.0 26.7 - 33.6 pg 09/27/2024 12:55 AM [facility] MCHC 31.4(L) 31.7 - 36.3 g/dL 09/27/2024 12:55 AM [facility] RDW-CV 17.7(H) 11.3 - 14.8 % 09/27/2024 12:55 AM [facility] Platelet Count 1,331(HH) 150 - 420 x10E9/L 09/27/2024 12:55 AM [facility] MPV 10.0 7.8 - 11.4 fL 09/27/2024 12:55 AM [facility] NRBC 1.1(H) <=0.0 /100 WBC 09/27/2024 12:55 AM [facility] Blood BLOOD SPECIMEN / Unknown Venipuncture / Unknown 09/27/2024 12:18 AM ESCROW REPRESENTATIVE 09/27/2024 12:30 AM ESCROW REPRESENTATIVE Gibran Grande PA-C LAB - HEMATOLOGY ORDERABLES Performing Organization Address City/[facility]/ZIP Co de Phone Number [facility] [address] [place] [address], [facility] [phone] * (ABNORMAL) CALCIUM IONIZED WHOLE BLOOD (09/27/2024 12:18 AM ESCROW REPRESENTATIVE) Calcium Ionized 1.15 mmol/L 09/27/2024 12:28 AM [facility] pH 7.44 7.35 - 7.45 pH 09/27/2024 12:28 AM [facility] Ionized Calcium pH Adjusted 1.17(L) 1.19 - 1.34 mmol/L 09/27/2024 12:28 AM [facility] Blood BLOOD SPECIMEN / Unknown Venipuncture / Unknown 09/27/2024 12:18 AM ESCROW REPRESENTATIVE 09/27/2024 12:23 AM ESCROW REPRESENTATIVE Gibran Grande PA-C LAB - CHEMISTRY O RDERABLES Performing Organization Address City/[facility]/ZIP Co de Phone Number [facility] [address] [place] [address], [facility] [phone] * (ABNORMAL) BASIC METABOLIC PANEL (CALCIUM TOTAL) (09/27/2024 12:18 AM ESCROW REPRESENTATIVE) BUN 24 7 - 26 mg/dL 09/27/2024 12:56 AM [facility] Creatinine 0.56(L) 0.71 - 1.16 mg/dL 09/27/2024 12:56 AM [facility] Sodium 145 136 - 145 mmol/L 09/27/2024 12:56 AM ESCROW REPRESENTATIVE [facility] Potassium 4.7(H) 3.5 - 4.5 mmol/L 09/27/2024 12:56 AM [facility] Chloride 111(H) 98 - 107 mmol/L 09/27/2024 12:56 AM [facility] CO2 25 22 - 29 mmol/L 09/27/2024 12:56 AM [facility] Glucose 108(H) 70 - 99 mg/dL 09/27/2024 12:56 AM [facility] Calcium 8.0(L) 8.4 - 10.2 mg/dL 09/27/2024 12:56 AM [facility] Anion Gap 9 6 - 16 09/27/2024 12:56 AM [facility] BUN/Creatinine Ratio 43(H) 7 - 23 09/27/2024 12:56 AM [facility] Osmolality Calculated 305(H) 275 - 295 mOsm/kg 09/27/2024 12:56 AM [facility] eGFR by CKD-EPI >90 >=90 mL/min/1.7 3 m2 09/27/2024 12:56 AM [facility] Blood BLOOD SPECIMEN / Unknown Venipuncture / Unknown 09/27/2024 12:18 AM ESCROW REPRESENTATIVE 09/27/2024 12:30 AM ESCROW REPRESENTATIVE Gibran Grande PA-C LAB - CHEMISTRY O RDERABLES [facility] [address] [place] [address], [facility] [phone] * XR Chest 1Vw Portable (09/26/2024 10:29 PM ESCROW REPRESENTATIVE) Anatomical Region Laterality Modality Chest Digital Radiogra phy 09/27/2024 7:23 AM ESCROW REPRESENTATIVE Narrative 09/28/2024 11:36 AM ESCROW REPRESENTATIVE PROCEDURE: ??XR CHEST 1VW PORTABLE DATE/TIME OF [...] intact. Report dictated by Manjula Bruno MD, (Material Handler 2Nd Shift). Maryanne Casey MD have personally reviewed and [...] intact. Report dictated by Manjula Bruno MD, (Material Handler 2Nd Shift). Maryanne Casey MD have personally reviewed and interpreted this examination/study. > Interpreting Provider: Maryanne Horner MD on 09/28/2024 11:36 AM Kendal Demarco MD DIAGNOSTIC IMAGING O RDERABLES * (ABNORMAL) BLOOD GASES ART + COOX PANEL (09/26/2024 10:25 PM ESCROW REPRESENTATIVE) pH Arterial 7.45 7.35 - 7.45 pH 09/26/2024 10:40 PM [facility] pO2 Arterial 69(L) 80 - 100 mmHg 09/26/2024 10:40 PM [facility] pCO2 Arterial 40 35 - 45 mmHg 10:40 PM [facility] HCO3 Arterial 27.8 20.0 - 30.0 mmol/L 09/26/2024 10:40 PM [facility] BE Arterial 3.5(H) -2.0 - 2.0 mmol/L 09/26/2024 10:40 PM [facility] Oxyhemoglobin Arterial 93.9 % 09/26/2024 10:40 PM [facility] Dexoyhemoglobin (HHB) % 2.2 % 09/26/2024 10:40 PM [facility] Methemoglobin 1.4 0.0 - 2.0 % 09/26/2024 10:40 PM [facility] Carboxyhemoglobin 2.4(H) 0.0 - 2.0 % 2023 10:40 PM [facility] O2 Content Arterial 11.4 Interpret within clinical context ml/dL 09/26/2024 10:40 PM [facility] Hemoglobin by COOX 8.6(L) 12.0 - 17.6 g/dL 09/26/2024 10:40 PM [facility] O2 Saturation Arterial 98 90 - 100 % 09/26/2024 10:40 PM [facility] FI O2 Arterial 70.0 % 09/26/2024 10:40 PM [facility] Blood, arterial ARTERIAL BLOOD SPECIMEN / Unknown Arterial Puncture / Unknown 09/26/2024 10:25 PM ESCROW REPRESENTATIVE 09/26/2024 10:29 PM [facility] - 09/26/2024 10:40 PM [facility] Carboxyhemoglobin Normal Concentration: Non-smokers: 0-2%; Smokers: 0-9%; Toxic: >20% Kendal Demarco MD LAB - BLOOD GASES OR DERABLES Performing Organization Address City/State/[facility] Co de Phone Number [facility] [address] [place] [id number] [phone] * XR Chest 1Vw Portable (09/26/2024 5:08 PM ESCROW REPRESENTATIVE) Anatomical Region Laterality Modality Chest Digital Radiogra phy 09/27/2024 7:12 AM ESCROW REPRESENTATIVE Narrative 09/27/2024 2:19 PM ESCROW REPRESENTATIVE PROCEDURE: ??XR CHEST 1VW PORTABLE, DATE/TIME OF EXAM: ??09/26/2024 5:08 PM, LOCATION ??[facility] INDICATION: T14.90XA: Trauma ADDITIONAL CLINICAL INFORMATION: Ordering Provider Reason For Exam: ??increasing oxygen requirements COMPARISON: Chest x-ray 09/15/2024 FINDINGS/IMPRESSION: Removal of the endotracheal tube. Enteric tube courses below the diaphragm and out of the [id number]. Left-sided rib plating is present. Overlying surgical skin avila of a left-sided thoracotomy. Unchanged airspace opacities. Small left pleural effusion. No enlarged pneumothorax. The cardiomediastinal silhouette is partially obscured. > Dictated by Valerio Mckay DO (Material Handler 2Nd Shift), 09/27/2024 7:15 AM. Maryanne Casey MD have personally reviewed and interpreted this examination/study. > Interpreting Provider: Maryanne Horner MD on 09/27/2024 2:19 PM Procedure Note Maryanne Horner MD - 09/27/2024 PROCEDURE: XR CHEST 1VW PORTABLE, DATE/TIME OF EXAM: 09/26/2024 5:08PM, LOCATION [facility] INDICATION: T14.90XA: Trauma ADDITIONAL CLINICAL INFORMATION: Ordering Provider Reason For Exam: increasing oxygen requirements COMPARISON: Chest x-ray 09/15/2024 FINDINGS/IMPRESSION: Removal of the endotracheal tube. Enteric tube courses below thediaphragm and out of the [id number]. Left-sided rib plating is present.Overlying surgical skin avila of a left-sided thoracotomy. Unchanged airspace opacities. Small left pleural effusion. No enlarged pneumothorax. The cardiomediastinal silhouette is partially obscured. > Dictated by Valerio Mckay DO (Material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 % 09/17/2024 12:41 AM [facility] Carboxyhemoglobin 1.7 0.0 - 2.0 % 2023 12:41 AM [facility] O2 Content Arterial 13.0 Interpret within clinical context ml/dL 09/17/2024 12:41 AM [facility] Hemoglobin by COOX 9.5(L) 12.0 - 17.6 g/dL 09/17/2024 12:41 AM [facility] O2 Saturation Arterial 99 90 - 100 % 09/17/2024 12:41 AM [facility] FI O2 Arterial 35.0 % 09/17/2024 12:41 AM [facility] Blood, arterial ARTERIAL BLOOD SPECIMEN / Unknown Arterial Puncture / Unknown 09/17/2024 12:17 AM [facility] 09/17/2024 12:20 AM [facility] - 09/17/2024 12:41 AM [facility] Carboxyhemoglobin Normal Concentration: Non-smokers: 0-2%; Smokers: 0-9%; Toxic: >20% Gibran Grande PA-C LAB - BLOOD GASES ORDERABLES [facility] [address] [place] [phone], [facility] [phone] * (ABNORMAL) BASIC METABOLIC PANEL (CALCIUM TOTAL) (09/17/2024 12:17 AM [facility]) BUN 14 7 - 26 mg/dL 09/17/2024 12:50 AM [facility] Creatinine 0.72 0.71 - 1.16 mg/dL 09/17/2024 12:50 AM [facility] Sodium 140 136 - 145 mmol/L 09/17/2024 12:50 AM [facility] Potassium 4.5 3.5 - 4.5 mmol/L 09/17/2024 12:50 AM [facility] Chloride 111(H) 98 - 107 mmol/L 09/17/2024 12:50 AM [facility] CO2 23 22 - 29 mmol/L 09/17/2024 12:50 AM [facility] Glucose 104(H) 70 - 99 mg/dL 09/17/2024 12:50 AM [facility] Calcium 7.8(L) 8.4 - 10.2 mg/dL 09/17/2024 12:50 AM [facility] Anion Gap 6 6 - 16 09/17/2024 12:50 AM [facility] BUN/Creatinine Ratio 19 7 - 23 09/17/2024 12:50 AM [facility] Osmolality Calculated 291 275 - 295 mOsm/kg 09/17/2024 12:50 AM [facility] eGFR by CKD-EPI >90 >=90 mL/min/1.7 3 m2 09/17/2024 12:50 AM [facility] Blood BLOOD SPECIMEN / Unknown Venipuncture / Unknown 09/17/2024 12:17 AM ESCROW REPRESENTATIVE 09/17/2024 12:24 AM ESCROW REPRESENTATIVE Gibran Grande PA-C LAB - CHEMISTRY O RDERABLES [facility] [address] [place] [phone], [facility] [phone] * PREPARE (CROSSMATCH) RBC UNIT(S), 2 Units (09/16/2024 1:49 PM ESCROW REPRESENTATIVE) Unit Description AS1 LR PRBC [facility] Unit ABO A [facility] Unit Rh POS [facility] Product Number R02 [facility] Unit Donor # [id number] [facility] Unit Status transfused [facility] Product Code [id number] [facility] Blood Type Barcode 6200 [facility] Expiration Date S BLOOD BANK LAB Unit Description AS1 LR PRBC [facility] Unit ABO A [facility] Unit Rh POS [facility] Product Number R02 [facility] Unit Donor # [id number] [facility] Unit Status released [facility] Product Code [id number] [facility] Blood Type Barcode 6200 [facility] Expiration Date S BLOOD BANK LAB Blood Bank BLOOD SPECIMEN / Unknown 09/14/2024 12:27 AM ESCROW REPRESENTATIVE Krzysztof Hunt DO LAB - BLOOD BANK O RDERABLES [facility] [address] [place] [address], [place] [phone] * PREPARE (CROSSMATCH) RBC UNIT(S), 2 Units (09/16/2024 1:49 PM ESCROW REPRESENTATIVE) Unit Description AS1 LR PRBC [facility] Unit ABO A [facility] Unit Rh POS [facility] Product Number R02 [facility] Unit Donor # [id number] [facility] Unit Status released [facility] Product [facility] [id number] [facility] Blood Type Barcode 6200 [facility] Expiration Date S BLOOD BANK LAB Unit Description AS1 LR PRBC [facility] Unit ABO A [facility] Unit Rh POS [facility] Product Number R02 [facility] Unit Donor # [id number] [facility] Unit Status released [facility] Product Code [id number] [facility] Blood Type Barcode 6200 [facility] Expiration Date S BLOOD BANK LAB Blood Bank BLOOD SPECIMEN / Unknown 09/14/2024 12:27 AM ESCROW REPRESENTATIVE Triston Wilson LAB - BLOOD BANK ORDERABLES [facility] [address] [place] [address], [place] [phone] * XR Chest 1Vw Portable (09/16/2024 1:47 PM ESCROW REPRESENTATIVE) Anatomical Region Laterality Modality Chest Digital Radiogra phy 09/16/2024 2:59 PM ESCROW REPRESENTATIVE Narrative 09/16/2024 6:26 PM ESCROW REPRESENTATIVE PROCEDURE: ??XR CHEST 1VW PORTABLE DATE/TIME OF [...] emphysema. Report dictated by Manjula Bruno MD, (Material Handler 2Nd Shift). I, Olivia Polanco MD have personally reviewed [...] emphysema. Report dictated by Manjula Bruno MD, (Material Handler 2Nd Shift). I, Olivia Polanco MD have personally reviewed and interpreted this examination/study. > Interpreting Provider: Olivia Polanco MD on 09/16/2024 6:26 PM Kendal Demarco MD DIAGNOSTIC IMAGING O RDERABLES * LACTIC ACID BLOOD (09/16/2024 12:35 PM ESCROW REPRESENTATIVE) Lactic Acid-Stat 0.9 <=2.0 mmol/L 09/16/2024 1:19 PM ESCROW REPRESENTATIVE [facility] Blood BLOOD SPECIMEN / Unknown Venipuncture / Unknown 09/16/2024 12:35 PM ESCROW REPRESENTATIVE 09/16/2024 12:48 PM ESCROW REPRESENTATIVE Kendal Demarco MD LAB - CHEMISTRY [facility] Organization Address City/State/ZIP Co de Phone Number [address] [address], [facility] [phone] * (ABNORMAL) CALCIUM IONIZED WHOLE BLOOD (09/16/2024 12:35 PM ESCROW REPRESENTATIVE) Calcium Ionized 1.27 mmol/L 09/16/2024 12:43 PM ESCROW REPRESENTATIVE [facility] pH 7.34(L) 7.35 - 7.45 pH 09/16/2024 12:43 PM ESCROW REPRESENTATIVE [facility] Ionized Calcium pH Adjusted 1.24 1.19 - 1.34 mmol/L 09/16/2024 12:43 PM ESCROW REPRESENTATIVE [facility] Blood BLOOD SPECIMEN / Unknown Venipuncture / Unknown 09/16/2024 12:35 PM ESCROW REPRESENTATIVE 09/16/2024 12:40 PM ESCROW REPRESENTATIVE Gibran Grande PA-C LAB - CHEMISTRY O RDERABLES [address] [address], [facility] [phone] * PHOSPHORUS BLOOD (09/16/2024 12:35 PM ESCROW REPRESENTATIVE) Phosphorus 4.0 2.8 - 5.1 mg/dL 09/16/2024 1:21 PM ESCROW REPRESENTATIVE [facility] Blood BLOOD SPECIMEN / Unknown Venipuncture / Unknown 09/16/2024 12:35 PM ESCROW REPRESENTATIVE 09/16/2024 12:48 PM ESCROW REPRESENTATIVE Gibran Grande PA-C LAB - CHEMISTRY O RDERABLES [address] [address], [facility] [phone] * MAGNESIUM BLOOD (09/16/2024 12:35 PM ESCROW REPRESENTATIVE) Magnesium 1.9 1.6 - 2.6 mg/dL 09/16/2024 1:18 PM ESCROW REPRESENTATIVE [facility] Blood BLOOD SPECIMEN / Unknown Venipuncture / Unknown 09/16/2024 12:35 PM ESCROW REPRESENTATIVE 09/16/2024 12:48 PM ESCROW REPRESENTATIVE Gibran Grande PA-C LAB - CHEMISTRY O RDERABLES [facility] [address] [place] [address] [phone] * (ABNORMAL) CBC W/O DIFFERENTIAL (09/16/2024 12:35 PM ESCROW REPRESENTATIVE) WBC 10.7 4.0 - 10.7 x10E9/L 09/16/2024 12:58 PM [facility] RBC Count 2.84(L) 4.30 - 5.80 x10E12/L 09/16/2024 12:58 PM [facility] Hemoglobin 8.5(L) 13.3 - 17.5 g/dL 09/16/2024 12:58 PM [facility] Hematocrit 26.0(L) 38.7 - 51.1 % 09/16/2024 12:58 PM [facility] MCV 91.5 80.0 - 98.0 fL 09/16/2024 12:58 PM [facility] MCH 29.9 26.7 - 33.6 pg 09/16/2024 12:58 PM [facility] MCHC 32.7 31.7 - 36.3 g/dL 09/16/2024 12:58 PM [facility] RDW-CV 15.9(H) 11.3 - 14.8 % 09/16/2024 12:58 PM [facility] Platelet Count 117(L) 150 - 420 x10E9/L 09/16/2024 12:58 PM [facility] MPV 10.5 7.8 - 11.4 fL 09/16/2024 12:58 PM [facility] Blood BLOOD SPECIMEN / Unknown Venipuncture / Unknown 09/16/2024 12:35 PM ESCROW REPRESENTATIVE 09/16/2024 12:48 PM ESCROW REPRESENTATIVE Gibran Grande PA-C LAB - HEMATOLOGY ORDERABLES [facility] [address] [place] [address] [phone] * (ABNORMAL) BLOOD GASES ART + COOX PANEL (09/16/2024 12:35 PM ESCROW REPRESENTATIVE) pH Arterial 7.34(L) 7.35 - 7.45 pH 09/16/2024 12:43 PM [facility] pO2 Arterial 92 80 - 100 mmHg 09/16/2024 12:43 PM [facility] pCO2 Arterial 44 35 - 45 mmHg 12:43 PM [facility] HCO3 Arterial 23.7 20.0 - 30.0 mmol/L 09/16/2024 12:43 PM [facility] BE Arterial -2.0 -2.0 - 2.0 mmol/L 09/16/2024 12:43 PM [facility] Oxyhemoglobin Arterial 95.7 % 09/16/2024 12:43 PM [facility] Dexoyhemoglobin (HHB) % 1.5 % 09/16/2024 12:43 PM [facility] Methemoglobin 0.9 0.0 - 2.0 % 09/16/2024 12:43 PM [facility] Carboxyhemoglobin 1.9 0.0 - 2.0 % 2023 12:43 PM [facility] O2 Content Arterial 12.3 Interpret within clinical context ml/dL 09/16/2024 12:43 PM [facility] Hemoglobin by COOX 9.0(L) 12.0 - 17.6 g/dL 09/16/2024 12:43 PM [facility] O2 Saturation Arterial 99 90 - 100 % 09/16/2024 12:43 PM [facility] FI O2 Arterial 50.0 % 09/16/2024 12:43 PM [facility] Blood, arterial ARTERIAL BLOOD SPECIMEN / Unknown Arterial Puncture / Unknown 09/16/2024 12:35 PM ESCROW REPRESENTATIVE 09/16/2024 12:40 PM [facility] - 09/16/2024 12:43 PM [facility] Carboxyhemoglobin Normal Concentration: Non-smokers: 0-2%; Smokers: 0-9%; Toxic: >20% Gibran Grande PA-C LAB - BLOOD GASES ORDERABLES Performing Organization Address [facility]/ZIP Co de Phone Number [facility] [address] [place] [phone], [facility] [phone] * (ABNORMAL) BASIC METABOLIC PANEL (CALCIUM TOTAL) (09/16/2024 12:35 PM ESCROW REPRESENTATIVE) BUN 14 7 - 26 mg/dL 09/16/2024 1:18 PM [facility] Creatinine 0.72 0.71 - 1.16 mg/dL 09/16/2024 1:18 PM [facility] Sodium 140 136 - 145 mmol/L 09/16/2024 1:18 PM [facility] Potassium 4.3 3.5 - 4.5 mmol/L 09/16/2024 1:18 PM [facility] Chloride 111(H) 98 - 107 mmol/L 09/16/2024 1:18 PM [facility] CO2 24 22 - 29 mmol/L 09/16/2024 1:18 PM [facility] Glucose 96 70 - 99 mg/dL 09/16/2024 1:18 PM [facility] Calcium 8.3(L) 8.4 - 10.2 mg/dL 09/16/2024 1:18 PM [facility] Anion Gap 5(L) 6 - 16 09/16/2024 1:18 PM [facility] BUN/Creatinine Ratio 19 7 - 23 09/16/2024 1:18 PM [facility] Osmolality Calculated 290 275 - 295 mOsm/kg 09/16/2024 1:18 PM [facility] eGFR by CKD-EPI >90 >=90 mL/min/1.7 3 m2 09/16/2024 1:18 PM [facility] Blood BLOOD SPECIMEN / Unknown Venipuncture / Unknown 09/16/2024 12:35 PM ESCROW REPRESENTATIVE 09/16/2024 12:48 PM ESCROW REPRESENTATIVE Gibran Grande PA-C LAB - CHEMISTRY O RDERABLES [facility] [address] [place] [id number] [phone] * TRANSFUSE RED BLOOD CELL LEUKOREDUCED UNIT(S) (09/16/2024 11:39 AM ESCROW REPRESENTATIVE) Triston Maldonado Asst NURSING - BLOOD PROD TRANSFUSION * (ABNORMAL) BLOOD GAS+COOX+LYTES+METAB ARTERIAL POCT (09/16/2024 11:02 AM ESCROW REPRESENTATIVE) pH Arterial 7.38 7.35 - 7.45 pH 09/16/2024 11:02 AM [facility] pO2 Arterial 146(H) 80 - 100 mmHg 09/16/2024 11:02 AM [facility] pCO2 Arterial 43 35 - 45 mmHg 11:02 AM [facility] HCO3 Arterial 25.4 20.0 - 30.0 mmol/L 09/16/2024 11:02 AM [facility] BE Arterial 0.2 -2.0 - 2.0 mmol/L 09/16/2024 11:02 AM [facility] Oxyhemoglobin Arterial 97.7 % 09/16/2024 11:02 AM [facility] Dexoyhemoglobin (HHB) % <1.0 % 09/16/2024 11:02 AM [facility] Methemoglobin <0.8 0.0 - 2.0 % 09/16/2024 11:02 AM [facility] Carboxyhemoglobin 1.3 0.0 - 2.0 % 2023 11:02 AM [facility] Comment:Carboxyhemoglobin No rmal Concentration: Non-smokers: 0-2%; Smokers: 0- 9%; Toxic: >20% O2 Content Arterial 9.1 Interpret within clinical context ml/dL 09/16/2024 11:02 AM [facility] Hemoglobin by COOX 6.4(L) 12.0 - 17.6 g/dL 09/16/2024 11:02 AM [facility] O2 Saturation Arterial 99 90 - 100 % 09/16/2024 11:02 AM [facility] Sodium Whole Blood 136 135 - 145 mmol/L 09/16/2024 11:02 AM [facility] Potassium Whole Blood 4.1 3.5 - 5.5 mmol/L 09/16/2024 11:02 AM [facility] Chloride WB 110(H) 78 - 107 mmol/L 09/16/2024 11:02 AM [facility] Calcium Ionized 1.17 mmol/L 11:02 AM [facility] Ionized Calcium pH Adjusted 1.16(L) 1.19 - 1.34 mmol/L 09/16/2024 11:02 AM [facility] Anion Gap (AG) Arterial 5(L) 6 - 16 mmol/L 09/16/2024 11:02 AM [facility] Glucose WB 101(H) 70 - 99 mg/dL 09/16/2024 11:02 AM [facility] Lactic Acid Whole Blood 0.7 <=2.0 mmol/L 09/16/2024 11:02 AM [facility] Blood, arterial ARTERIAL BLOOD SPECIMEN / Unknown 09/16/2024 11:02 AM [facility] 09/16/2024 11:03 AM [facility] Kendal Demarco MD LAB - POINT OF CARE ORDERABLES [facility] [address] [place] [phone], [facility] [phone] * (ABNORMAL) BLOOD GAS+COOX+LYTES+METAB ARTERIAL POCT (09/16/2024 9:29 AM [facility]) pH Arterial 7.33(L) 7.35 - 7.45 pH 09/16/2024 9:29 AM [facility] pO2 Arterial 136(H) 80 - 100 mmHg 09/16/2024 9:29 AM [facility] pCO2 Arterial 46(H) 35 - 45 mmHg 9:29 AM [facility] HCO3 Arterial 24.3 20.0 - 30.0 mmol/L 09/16/2024 9:29 AM [facility] BE Arterial -1.7 -2.0 - 2.0 mmol/L 09/16/2024 9:29 AM [facility] Oxyhemoglobin Arterial 96.9 % 09/16/2024 9:29 AM [facility] Dexoyhemoglobin (HHB) % <1.0 % 09/16/2024 9:29 AM [facility] Methemoglobin 1.2 0.0 - 2.0 % 09/16/2024 9:29 AM [facility] Carboxyhemoglobin 1.4 0.0 - 2.0 % 2023 9:29 AM [facility] Comment:Carboxyhemoglobin No rmal Concentration: Non-smokers: 0-2%; Smokers: 0- 9%; Toxic: >20% O2 Content Arterial 11.9 Interpret within clinical context ml/dL 09/16/2024 9:29 AM [facility] Hemoglobin by COOX 8.5(L) 12.0 - 17.6 g/dL 09/16/2024 9:29 AM [facility] O2 Saturation Arterial 100 90 - 100 % 09/16/2024 9:29 AM [facility] Sodium Whole Blood 136 135 - 145 mmol/L 09/16/2024 9:29 AM [facility] Potassium Whole Blood 3.9 3.5 - 5.5 mmol/L 09/16/2024 9:29 AM [facility] Chloride WB 110(H) 78 - 107 mmol/L 09/16/2024 9:29 AM [facility] Calcium Ionized 1.19 mmol/L 9:29 AM [facility] Ionized Calcium pH Adjusted 1.16(L) 1.19 - 1.34 mmol/L 09/16/2024 9:29 AM [facility] Anion Gap (AG) Arterial 2(L) 6 - 16 mmol/L 09/16/2024 9:29 AM [facility] Glucose WB 104(H) 70 - 99 mg/dL 09/16/2024 9:29 AM [facility] Lactic Acid Whole Blood 0.6 <=2.0 mmol/L 09/16/2024 9:29 AM [facility] Blood, arterial ARTERIAL BLOOD SPECIMEN / Unknown 09/16/2024 9:29 AM ESCROW REPRESENTATIVE 09/16/2024 9:30 AM ESCROW REPRESENTATIVE Kendal Demarco MD LAB - POINT OF CARE ORDERABLES [facility] [address] [place] [address], [facility] [phone] * (ABNORMAL) BLOOD GAS+COOX+LYTES+METAB ARTERIAL POCT (09/16/2024 8:12 AM [facility]) pH Arterial 7.34(L) 7.35 - 7.45 pH 09/16/2024 8:12 AM [facility] pO2 Arterial 168(H) 80 - 100 mmHg 09/16/2024 8:12 AM [facility] pCO2 Arterial 46(H) 35 - 45 mmHg 8:12 AM [facility] HCO3 Arterial 24.8 20.0 - 30.0 mmol/L 09/16/2024 8:12 AM [facility] BE Arterial -1.0 -2.0 - 2.0 mmol/L 09/16/2024 8:12 AM [facility] Oxyhemoglobin Arterial 98.1 % 09/16/2024 8:12 AM [facility] Dexoyhemoglobin (HHB) % <1.0 % 09/16/2024 8:12 AM [facility] Methemoglobin <0.8 0.0 - 2.0 % 09/16/2024 8:12 AM [facility] Carboxyhemoglobin 1.2 0.0 - 2.0 % 2023 8:12 AM [facility] Comment:Carboxyhemoglobin No rmal Concentration: Non-smokers: 0-2%; Smokers: 0- 9%; Toxic: >20% O2 Content Arterial 12.1 Interpret within clinical context ml/dL 09/16/2024 8:12 AM [facility] Hemoglobin by COOX 8.5(L) 12.0 - 17.6 g/dL 09/16/2024 8:12 AM [facility] O2 Saturation Arterial 100 90 - 100 % 09/16/2024 8:12 AM [facility] Sodium Whole Blood 136 135 - 145 mmol/L 09/16/2024 8:12 AM [facility] Potassium Whole Blood 4.0 3.5 - 5.5 mmol/L 09/16/2024 8:12 AM [facility] Chloride WB 109(H) 78 - 107 mmol/L 09/16/2024 8:12 AM [facility] Calcium Ionized 1.18 mmol/L 8:12 AM [facility] Ionized Calcium pH Adjusted 1.15(L) 1.19 - 1.34 mmol/L 09/16/2024 8:12 AM [facility] Anion Gap (AG) Arterial 2(L) 6 - 16 mmol/L 09/16/2024 8:12 AM [facility] Glucose WB 102(H) 70 - 99 mg/dL 09/16/2024 8:12 AM [facility] Lactic Acid Whole Blood 0.8 <=2.0 mmol/L 09/16/2024 8:12 AM [facility] Blood, arterial ARTERIAL BLOOD SPECIMEN / Unknown 09/16/2024 8:12 AM ESCROW REPRESENTATIVE 09/16/2024 8:13 AM ESCROW REPRESENTATIVE Kendal Demarco MD LAB - POINT OF CARE ORDERABLES [address] [address], [place] [phone] * BLOOD GAS ART+LYTES+METAB+COOX POC NOTIF (09/16/2024 8:10 AM ESCROW REPRESENTATIVE) Comment Notification Label Only - See Separate Report 09/16/2024 9:30 AM [facility] Other MISCELLANEOUS SAMPLES / Unknown 09/16/2024 8:10 AM ESCROW REPRESENTATIVE 09/16/2024 8:11 AM ESCROW REPRESENTATIVE Kendal Demarco MD LAB - BLOOD GASES OR DERABLES [address] [address], [place] [phone] * LACTIC ACID BLOOD (09/16/2024 12:10 AM ESCROW REPRESENTATIVE) Lactic Acid-Stat 0.9 <=2.0 mmol/L 09/16/2024 1:00 AM [facility] Blood BLOOD SPECIMEN / Unknown Venipuncture / Unknown 09/16/2024 12:10 AM ESCROW REPRESENTATIVE 09/16/2024 12:29 AM ESCROW REPRESENTATIVE Kendal Demarco MD LAB - CHEMISTRY YUAN JI [address] [address], [place] [phone] * (ABNORMAL) CALCIUM IONIZED WHOLE BLOOD (09/16/2024 12:10 AM ESCROW REPRESENTATIVE) Calcium Ionized 1.16 mmol/L 09/16/2024 12:32 AM ESCROW REPRESENTATIVE [facility] pH 7.43 7.35 - 7.45 pH 09/16/2024 12:32 AM [facility] Ionized Calcium pH Adjusted 1.17(L) 1.19 - 1.34 mmol/L 09/16/2024 12:32 AM ESCROW REPRESENTATIVE [facility] Blood BLOOD SPECIMEN / Unknown Venipuncture / Unknown 09/16/2024 12:10 AM ESCROW REPRESENTATIVE 09/16/2024 12:26 AM ESCROW REPRESENTATIVE Gibran Grande PA-C LAB - CHEMISTRY O RDCAROLINA Performing Organization Address [facility]/ZIP Co de Phone Number [address] [address], [place] [phone] * (ABNORMAL) PHOSPHORUS BLOOD (09/16/2024 12:10 AM ESCROW REPRESENTATIVE) Phosphorus 2.5(L) 2.8 - 5.1 mg/dL 09/16/2024 1:01 AM ESCROW REPRESENTATIVE [facility] Blood BLOOD SPECIMEN / Unknown Venipuncture / Unknown 09/16/2024 12:10 AM ESCROW REPRESENTATIVE 09/16/2024 12:31 AM ESCROW REPRESENTATIVE Gibran Grande PA-C LAB - CHEMISTRY O RDERABLES [address] [address], [place] [phone] * MAGNESIUM BLOOD (09/16/2024 12:10 AM ESCROW REPRESENTATIVE) Magnesium 2.0 1.6 - 2.6 mg/dL 09/16/2024 1:01 AM [facility] Blood BLOOD SPECIMEN / Unknown Venipuncture / Unknown 09/16/2024 12:10 AM ESCROW REPRESENTATIVE 09/16/2024 12:31 AM ESCROW REPRESENTATIVE Gibran Grande PA-C LAB - CHEMISTRY O RDERABLES [facility] [address] [place] [address], [facility] [phone] * (ABNORMAL) CBC W/O DIFFERENTIAL (09/16/2024 12:10 AM ESCROW REPRESENTATIVE) WBC 12.1(H) 4.0 - 10.7 x10E9/L 09/16/2024 12:43 AM [facility] RBC Count 2.83(L) 4.30 - 5.80 x10E12/L 09/16/2024 12:43 AM [facility] Hemoglobin 8.5(L) 13.3 - 17.5 g/dL 09/16/2024 12:43 AM [facility] Hematocrit 25.5(L) 38.7 - 51.1 % 09/16/2024 12:43 AM [facility] MCV 90.1 80.0 - 98.0 fL 09/16/2024 12:43 AM [facility] MCH 30.0 26.7 - 33.6 pg 09/16/2024 12:43 AM [facility] MCHC 33.3 31.7 - 36.3 g/dL 09/16/2024 12:43 AM [facility] RDW-CV 16.6(H) 11.3 - 14.8 % 09/16/2024 12:43 AM [facility] Platelet Count 129(L) 150 - 420 x10E9/L 09/16/2024 12:43 AM [facility] MPV 10.4 7.8 - 11.4 fL 09/16/2024 12:43 AM [facility] Blood BLOOD SPECIMEN / Unknown Venipuncture / Unknown 09/16/2024 12:10 AM ESCROW REPRESENTATIVE 09/16/2024 12:31 AM [facility] Gibran Murillo Harjinder KHAN LAB - HEMATOLOGY ORDERABLES [facility] [address] [place] [address] [phone] * (ABNORMAL) BLOOD GASES ART + COOX PANEL (09/16/2024 12:10 AM [facility]) pH Arterial 7.44 7.35 - 7.45 pH 09/16/2024 12:36 AM [facility] pO2 Arterial 115(H) 80 - 100 mmHg 09/16/2024 12:36 AM [facility] pCO2 Arterial 35 35 - 45 mmHg 12:36 AM [facility] HCO3 Arterial 23.8 20.0 - 30.0 mmol/L 09/16/2024 12:36 AM [facility] BE Arterial -0.1 -2.0 - 2.0 mmol/L 09/16/2024 12:36 AM [facility] Oxyhemoglobin Arterial 97.1 % 09/16/2024 12:36 AM [facility] Dexoyhemoglobin (HHB) % <1.0 % 09/16/2024 12:36 AM [facility] Methemoglobin 0.9 0.0 - 2.0 % 09/16/2024 12:36 AM [facility] Carboxyhemoglobin 1.2 0.0 - 2.0 % 2023 12:36 AM [facility] O2 Content Arterial 12.8 Interpret within clinical context ml/dL 09/16/2024 12:36 AM [facility] Hemoglobin by COOX 9.2(L) 12.0 - 17.6 g/dL 09/16/2024 12:36 AM [facility] O2 Saturation Arterial 99 90 - 100 % 09/16/2024 12:36 AM [facility] FI O2 Arterial 50.0 % 09/16/2024 12:36 AM [facility] Blood, arterial ARTERIAL BLOOD SPECIMEN / Unknown Arterial Puncture / Unknown 09/16/2024 12:10 AM [facility] 09/16/2024 12:26 AM [facility] - 09/16/2024 12:36 AM [facility] Carboxyhemoglobin Normal Concentration: Non-smokers: 0-2%; Smokers: 0-9%; Toxic: >20% Gibran Grande PA-C LAB - BLOOD GASES ORDERABLES [facility] [address] [place] [address], [facility] [phone] * (ABNORMAL) BASIC METABOLIC PANEL (CALCIUM TOTAL) (09/16/2024 12:10 AM [facility]) BUN 20 7 - 26 mg/dL 09/16/2024 1:01 AM [facility] Creatinine 0.85 0.71 - 1.16 mg/dL 09/16/2024 1:01 AM [facility] Sodium 141 136 - 145 mmol/L 09/16/2024 1:01 AM [facility] Potassium 4.2 3.5 - 4.5 mmol/L 09/16/2024 1:01 AM [facility] Chloride 111(H) 98 - 107 mmol/L 09/16/2024 1:01 AM [facility] CO2 23 22 - 29 mmol/L 09/16/2024 1:01 AM [facility] Glucose 99 70 - 99 mg/dL 09/16/2024 1:01 AM [facility] Calcium 7.7(L) 8.4 - 10.2 mg/dL 09/16/2024 1:01 AM [facility] Anion Gap 7 6 - 16 09/16/2024 1:01 AM [facility] BUN/Creatinine Ratio 24(H) 7 - 23 09/16/2024 1:01 AM [facility] Osmolality Calculated 295 275 - 295 mOsm/kg 09/16/2024 1:01 AM [facility] eGFR by CKD-EPI 87(L) >=90 mL/min/1.7 3 m2 09/16/2024 1:01 AM ESCROW REPRESENTATIVE [facility] Blood BLOOD SPECIMEN / Unknown Venipuncture / Unknown 09/16/2024 12:10 AM ESCROW REPRESENTATIVE 09/16/2024 12:31 AM ESCROW REPRESENTATIVE Gibran Murillo Harjinder KHAN LAB - CHEMISTRY O RDERABLES [facility] [address] [place] [address], [facility] [phone] * CT 3D Recon W Independent Wksn (09/15/2024 7:05 PM ESCROW REPRESENTATIVE) Anatomical Region Laterality Modality Computed Tomogra phy 09/15/2024 7:30 PM ESCROW REPRESENTATIVE Impressions 09/16/2024 12:07 AM ESCROW REPRESENTATIVE IMPRESSION: Three-dimensional rendering. Report dictated by Ovidio Myers MD I, Layo Adhikari MD have personally reviewed and interpreted this examination/study. > Interpreting Provider: Layo Adhikari MD on 09/16/2024 12:07 AM Narrative 09/16/2024 12:07 AM ESCROW REPRESENTATIVE PROCEDURE: ??CT 3D RECON W INDEPENDENT WKSN, DATE/TIME OF EXAM: ??09/15/2024 7:05 PM, LOCATION ??[facility] INDICATION: S22.43XA: Multiple fractures of ribs, [...] WKSN, DATE/TIME OF EXAM:09/15/2024 7:05 PM, LOCATION [facility] INDICATION: S22.43XA: Multiple fractures of ribs, [...] ART + COOX PANEL (09/15/2024 1:55 PM ESCROW REPRESENTATIVE) pH Arterial 7.36 7.35 - 7.45 pH 09/15/2024 2:15 PM [facility] pO2 Arterial 94 80 - 100 mmHg 09/15/2024 2:15 PM [facility] pCO2 Arterial 46(H) 35 - 45 mmHg 2:15 PM [facility] HCO3 Arterial 26.0 20.0 - 30.0 mmol/L 09/15/2024 2:15 PM [facility] BE Arterial 0.3 -2.0 - 2.0 mmol/L 09/15/2024 2:15 PM [facility] Oxyhemoglobin Arterial 97.6 % 09/15/2024 2:15 PM [facility] Dexoyhemoglobin (HHB) % <1.0 % 09/15/2024 2:15 PM [facility] Methemoglobin <0.8 0.0 - 2.0 % 09/15/2024 2:15 PM [facility] Carboxyhemoglobin 2.1(H) 0.0 - 2.0 % 2023 2:15 PM [facility] O2 Content Arterial 13.3 Interpret within clinical context ml/dL 09/15/2024 2:15 PM [facility] Hemoglobin by COOX 9.6(L) 12.0 - 17.6 g/dL 09/15/2024 2:15 PM [facility] O2 Saturation Arterial 100 90 - 100 % 09/15/2024 2:15 PM ESCROW REPRESENTATIVE [facility] FI O2 Arterial 70.0 % 09/15/2024 2:15 PM ESCROW REPRESENTATIVE [facility] Blood, arterial ARTERIAL BLOOD SPECIMEN / Unknown Arterial Puncture / Unknown 09/15/2024 1:55 PM ESCROW REPRESENTATIVE 09/15/2024 2:11 PM ESCROW REPRESENTATIVE Narrative [facility] - 09/15/2024 2:15 PM ESCROW REPRESENTATIVE Carboxyhemoglobin Normal Concentration: Non-smokers: 0-2%; Smokers: 0-9%; Toxic: >20% Kendal Demarco MD LAB - BLOOD GASES OR DERABLES [facility] [address] [place] [address], [facility] [phone] * XR Chest 1Vw Portable (09/15/2024 1:48 PM ESCROW REPRESENTATIVE) Anatomical Region Laterality Modality Chest Digital Radiogra phy 09/15/2024 2:22 PM ESCROW REPRESENTATIVE Narrative 09/15/2024 4:01 PM ESCROW REPRESENTATIVE PROCEDURE: ??XR CHEST 1VW PORTABLE DATE/TIME OF [...] redemonstrated Report dictated by Manjula Bruno MD, (Material Handler 2Nd Shift). Olivia Casey MD have personally reviewed and [...] redemonstrated Report dictated by Manjula Bruno MD, (Material Handler 2Nd Shift). Olivia Casey MD have personally reviewed and interpreted this examination/study. > Interpreting Provider: Olivia Polanco MD on 09/15/2024 4:01 PM Kendal Demarco MD DIAGNOSTIC IMAGING O RDERABLES * LACTIC ACID BLOOD (09/15/2024 12:23 PM ESCROW REPRESENTATIVE) Lactic Acid-Stat 1.1 <=2.0 mmol/L 09/15/2024 1:24 PM ESCROW REPRESENTATIVE [facility] Blood BLOOD SPECIMEN / Unknown Venipuncture / Unknown 09/15/2024 12:23 PM ESCROW REPRESENTATIVE 09/15/2024 12:55 PM ESCROW REPRESENTATIVE Kendal Demarco MD LAB - CHEMISTRY YUAN JI [address] [address], [place] [phone] * (ABNORMAL) CALCIUM IONIZED WHOLE BLOOD (09/15/2024 12:23 PM ESCROW REPRESENTATIVE) Calcium Ionized 1.22 mmol/L 09/15/2024 12:54 PM ESCROW REPRESENTATIVE [facility] pH 7.28(L) 7.35 - 7.45 pH 09/15/2024 12:54 PM ESCROW REPRESENTATIVE [facility] Ionized Calcium pH Adjusted 1.16(L) 1.19 - 1.34 mmol/L 09/15/2024 12:54 PM ESCROW REPRESENTATIVE [facility] Blood BLOOD SPECIMEN / Unknown Venipuncture / Unknown 09/15/2024 12:23 PM ESCROW REPRESENTATIVE 09/15/2024 12:46 PM ESCROW REPRESENTATIVE Gibran Grande PA-C LAB - CHEMISTRY Javy FLYNN Performing Organization Address [facility]/ZIP Co de Phone Number [address]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 AM, LOCATION ??[facility] History: 42 year old male with [...] femoral arteries. 13.Hemostasis with bilateral placement of 6-Colombian Angio-Seal closure device is. Fluoroscopic time: 25.3 minutes ?Contrast: 85 mL of Isovue-300 Procedure in detail: ?? Patient anonymous at time of procedure, procedure was performed as an emergency. The patient was brought to the angiography suite and placed supine on the table. The right groin was prepped and draped in the usual sterile fashion. Kindergarten Aide radiograph of the pelvis was obtained and was unremarkable. Pre procedure time out was performed. The patient received intravenous Versed and Fentanyl for conscious sedation. A qualified radiology nurse monitored the patient s vital signs throughout the procedure. Limited ultrasound of the right common femoral artery demonstrated a patent vessel, and the level of its bifurcation was identified. A hadier scale image was documented. The right common femoral artery was accessed using a micropuncture needle. The needle entry was documented. ??Following a series of exchanges, a 5-Colombian vascular sheath was placed. Using a 5 Colombian Omniflush catheter, a lower abdominal aortic and [...] documented. ??Following a series of exchanges, a 5-Colombian vascular sheath was placed. The left common iliac artery was selectively catheterized with a 4-Colombian Cobra catheters and angiogram was obtained, which demonstrated patent external and internal iliac arteries. The left internal iliac artery was selectively catheterized with the 4-Colombian Cobra ??catheter and angiogram was obtained, which [...] documented. ??Following a series of exchanges, a 5-Colombian vascular sheath was placed. The right common iliac artery was selectively catheterized with a 4-Colombian Cobra catheters and angiogram was obtained, which demonstrated irregularity of the distal vasculature/spasm, with no active contrast extravasation. The right external iliac artery was selectively catheterized with the a 5-Colombian VA2 and 4-Colombian Cobra catheters and angiogram was obtained, which demonstrated no active contrast extravasation. The right internal iliac artery was selectively catheterized with the 4-Colombian Cobra ??catheter and angiogram was obtained, which [...] femoral head. Hemostasis was achieved with a 6-Colombian Colombian Angio-Seal closure device. Sterile dressing was applied. The patient tolerated the procedure well and was transferred to SICU in stable condition. There were no immediate complications associated with the procedure. Procedure Note Arsenio Sahni MD - 09/17/2024 PROCEDURE: IR EMBOLIZATION TRANSCATH THPY, DATE/TIME OF EXAM:09/14/2024 4:13 AM, LOCATION [facility] History: 42 year old male with polytrauma with multi compartmental hemorrhage, active extravasation both sides pelvis, branches artery, onCT imaging, referred to [facility] for image-guided aortogram, possibleembolization, and related interventions. [...] femoral arteries. 13.Hemostasis with bilateral placement of 6-Colombian Angio-Seal closure device is. Fluoroscopic time: 25.3 minutes Contrast: 85 mL of Isovue-300 Procedure in detail: Patient anonymous at time of procedure, procedure was performed as an emergency. The patient was brought to the angiography suite and placed supine on the table. The right groin was prepped and draped in the usual sterile fashion. Kindergarten Aide radiograph of the pelvis was obtained and [...] was documented. Following aseries of exchanges, a 5-Colombian vascular sheath was placed. Using a 5 Colombian Omniflush catheter, a lower abdominal aortic and [...] was documented. Following aseries of exchanges, a 5-Colombian vascular sheath was placed. The left common iliac artery was selectively catheterized with a4-Colombian Cobra catheters and angiogram was obtained, which demonstrated patent external and internal iliac arteries. The left internal iliac artery was selectively catheterized with the 4-Colombian Cobra catheter and angiogram was obtained, which [...] was documented. Following aseries of exchanges, a 5-Colombian vascular sheath was placed. The right common iliac artery was selectively catheterized with a4-Colombian Cobra catheters and angiogram was obtained, which demonstratedirregularity of the distal vasculature/spasm, with no active contrast extravasation. The right external iliac artery was selectively catheterized with the a 5-Colombian VA2 and 4-Colombian Cobra catheters and angiogram was obtained,which demonstrated no active contrast extravasation. The right internal iliac artery was selectively catheterized with the 4-Colombian Cobra catheter and angiogram was obtained, which [...] the femoralhead. Hemostasis was achieved with a 6-Colombian Colombian Angio-Seal closuredevice. Sterile dressing was applied. The [...] Report dictated by Jacob Merritt MD, PhD (vice president planning). > Dictated by Jacob Merritt MD (Material Handler 2Nd Shift) 46:41 AM IArsenio MD have personally reviewed and interpreted this examination/study. > Interpreting Provider: Arsenio Sahni MD on 09/17/2024 5:40 PM Kendal Demarco MD IR ORDERABLES * XR Chest 1Vw Portable (09/14/2024 7:35 AM ESCROW REPRESENTATIVE) Anatomical Region Laterality Modality Chest Digital Radiogra phy 09/14/2024 7:53 AM ESCROW REPRESENTATIVE Narrative 09/14/2024 11:37 AM ESCROW REPRESENTATIVE PROCEDURE: ??XR CHEST 1VW PORTABLE DATE/TIME OF [...] fracture. Report dictated by Manjula Bruno MD, (Material Handler 2Nd Shift). I, Ildefonso Bee MD have personally reviewed [...] fracture. Report dictated by Manjula Bruno MD, (Material Handler 2Nd Shift). Ildefonso Casey MD have personally reviewed and interpreted this examination/study. > Interpreting Provider: Ildefonso Bee MD on 09/14/2024 11:37 AM Kendal Demarco MD DIAGNOSTIC IMAGING O RDERABLES * (ABNORMAL) BLOOD GAS+COOX+LYTES+METAB ARTERIAL POCT (09/14/2024 5:56 AM ESCROW REPRESENTATIVE) pH Arterial 7.35 7.35 - 7.45 pH 09/14/2024 5:56 AM ESCROW REPRESENTATIVE [facility] pO2 Arterial 90 80 - 100 mmHg 09/14/2024 5:56 AM [facility] pCO2 Arterial 45 35 - 45 mmHg 5:56 AM [facility] HCO3 Arterial 24.8 20.0 - 30.0 mmol/L 09/14/2024 5:56 AM [facility] BE Arterial -0.9 -2.0 - 2.0 mmol/L 09/14/2024 5:56 AM [facility] Oxyhemoglobin Arterial 96.1 % 09/14/2024 5:56 AM [facility] Dexoyhemoglobin (HHB) % 1.5 % 09/14/2024 5:56 AM [facility] Methemoglobin <0.8 0.0 - 2.0 % 09/14/2024 5:56 AM [facility] Carboxyhemoglobin 1.7 0.0 - 2.0 % 2023 5:56 AM [facility] Comment:Carboxyhemoglobin No rmal Concentration: Non-smokers: 0-2%; Smokers: 0- 9%; Toxic: >20% O2 Content Arterial 12.6 Interpret within clinical context ml/dL 09/14/2024 5:56 AM [facility] Hemoglobin by COOX 9.2(L) 12.0 - 17.6 g/dL 09/14/2024 5:56 AM [facility] O2 Saturation Arterial 99 90 - 100 % 09/14/2024 5:56 AM [facility] Sodium Whole Blood 139 135 - 145 mmol/L 09/14/2024 5:56 AM [facility] Potassium Whole Blood 3.9 3.5 - 5.5 mmol/L 09/14/2024 5:56 AM [facility] Chloride WB 112(H) 78 - 107 mmol/L 09/14/2024 5:56 AM [facility] Calcium Ionized 1.24 mmol/L 5:56 AM [facility] Ionized Calcium pH Adjusted 1.21 1.19 - 1.34 mmol/L 09/14/2024 5:56 AM [facility] Anion Gap (AG) Arterial 6 6 - 16 mmol/L 09/14/2024 5:56 AM [facility] Glucose WB 157(H) 70 - 99 mg/dL 09/14/2024 5:56 AM ESCROW REPRESENTATIVE [facility] Lactic Acid Whole Blood 1.2 <=2.0 mmol/L 09/14/2024 5:56 AM ESCROW REPRESENTATIVE [facility] Blood, arterial ARTERIAL BLOOD SPECIMEN / Unknown 09/14/2024 5:56 AM ESCROW REPRESENTATIVE 09/14/2024 5:57 AM ESCROW REPRESENTATIVE Kendal Demarco MD LAB - POINT OF CARE ORDERABLES Performing Organization Address City/[facility]/ZIP Co de Phone Number [address] [address], [place] [phone] * BLOOD GAS ART+LYTES+METAB+COOX POC NOTIF (09/14/2024 5:51 AM ESCROW REPRESENTATIVE) Comment Notification Label Only - See Separate Report 09/14/2024 8:30 AM ESCROW REPRESENTATIVE [facility] Other MISCELLANEOUS SAMPLES / Unknown 09/14/2024 5:51 AM ESCROW REPRESENTATIVE 09/14/2024 7:03 AM ESCROW REPRESENTATIVE Nitish Mcclellan DO LAB - BLOOD GASES OR DERABLES Performing Organization Address City/[facility]/ZIP Co de Phone Number [address] [address], [place] [phone] * PREPARE FFP UNIT(S), 6 Units (09/14/2024 5:04 AM ESCROW REPRESENTATIVE) Unit Description Thawed Plasma 5D [facility] Unit ABO A [facility] Unit Rh POS [facility] Product Number [id number] [facility] Unit Donor # [id number] [facility] Unit Status transfused [facility] Product Code [id number] [facility] Blood Type Barcode 6200 [facility] Expiration Date S BLOOD BANK LAB Unit Description Thawed Plasma 5D [facility] Unit ABO A [facility] Unit Rh POS [facility] Product Number [id number] [facility] Unit Donor # [id number] [facility] Unit Status released [facility] Product Code [id number] [facility] Blood Type Barcode 6200 [facility] Expiration Date [facility] Unit Description Thawed Plasma 5D [facility] Unit ABO A [facility] Unit Rh POS [facility] Product Number [id number] [facility] Unit Donor # [id number] [facility] Unit Status released [facility] Product [facility] [id number] [facility] Blood Type Barcode 6200 [facility] Expiration Date [facility] Unit Description Thawed Plasma 5D [facility] Unit ABO A [facility] Unit POS [facility] Product Number [id number] [facility] Unit Donor # [id number] [facility] Unit Status transfused [facility] Product [facility] [id number] [facility] Blood Type Barcode 6200 [facility] Expiration Date [facility] Unit Description Thawed Plasma 5D [facility] Unit ABO A [facility] Unit POS [facility] Product Number [id number] [facility] Unit Donor # [id number] [facility] Unit Status released [facility] Product [facility] [id number] [facility] Blood Type Barcode 6200 [facility] Expiration Date [facility] Unit Description Thawed Plasma 5D [facility] Unit ABO AB [facility] Unit POS [facility] Product Number [id number] [facility] Unit Donor # [id number] [facility] Unit Status transfused [facility] Product Code [id number] [facility] Blood Type Barcode 8400 [facility] Expiration Date [facility] Blood Bank BLOOD SPECIMEN / Unknown 09/14/2024 12:27 AM ESCROW REPRESENTATIVE Vivi Braxton MD LAB - BLOOD BANK ORD ERABLES [facility] [address] [place] [address] [phone] * PREPARE (CROSSMATCH) RBC UNIT(S), 6 Units (09/14/2024 5:04 AM ESCROW REPRESENTATIVE) Unit Description AS1 LR PRBC [facility] Unit ABO O [facility] Unit POS [facility] Product Number R43 [facility] Unit Donor # [id number] [facility] Unit Status released [facility] Product Code [id number] [facility] Blood Type Barcode 5100 [facility] Expiration Date S BLOOD BANK LAB Unit Description -1 LR PRBC LV [facility] Unit ABO O [facility] Unit POS [facility] Product Number R52 [facility] Unit Donor # [id number] [facility] Unit Status released [facility] Product Code [id number] [facility] Blood Type Barcode 5100 [facility] Expiration Date S BLOOD BANK LAB Unit Description AS1 LR PRBC [facility] Unit ABO O [facility] Unit POS [facility] Product Number R43 [facility] Unit Donor # [id number] [facility] Unit Status transfused [facility] Product Code [id number] [facility] Blood Type Barcode 5100 [facility] Expiration Date S BLOOD BANK LAB Unit Description -1 LR PRBC LV [facility] Unit ABO O [facility] Unit POS [facility] Product Number R52 [facility] Unit Donor # [id number] [facility] Unit Status released [facility] Product Code [id number] [facility] Blood Type Barcode 5100 [facility] Expiration Date S BLOOD BANK LAB Unit Description AS1 LR PRBC [facility] Unit ABO O [facility] Unit POS [facility] Product Number R02 [facility] Unit Donor # [id number] [facility] Unit Status transfused [facility] Product Code [id number] [facility] Blood Type Barcode 5100 [facility] Expiration Date [id number] S BLOOD BANK LAB Unit Description -1 LR PRBC LV [facility] Unit ABO O [facility] Unit Rh POS [facility] Product Number R52 [facility] Unit Donor # [id number] [facility] Unit Status transfused [facility] Product Code [id number] [facility] Blood Type Barcode 5100 [facility] Expiration Date [id number] S BLOOD BANK LAB Blood Bank BLOOD SPECIMEN / Unknown 09/14/2024 12:27 AM ESCROW REPRESENTATIVE Vivi Braxton MD LAB - BLOOD BANK ORD ERABLES [facility] [address] [place] [address], [place] [phone] * PREPARE PLATELET PHERESIS UNIT(S), 1 Units (09/14/2024 5:00 AM ESCROW REPRESENTATIVE) Unit Description LR PLT Phere B7 [facility] Unit ABO O [facility] Unit Rh POS [facility] Product Number P27 [facility] Unit Donor # [id number] [facility] Unit Status released [facility] Product Code [id number] [facility] Blood Type Barcode 5100 [facility] Expiration Date [id number] [facility] Blood Bank BLOOD SPECIMEN / Unknown 09/14/2024 12:27 AM ESCROW REPRESENTATIVE Vivi Braxton MD LAB - BLOOD BANK ORD ERABLES [facility] [address] [place] [address], [place] [phone] * CT 3D Recon W Independent Wksn (09/14/2024 3:57 AM ESCROW REPRESENTATIVE) Anatomical Region Laterality Modality Computed Tomogra phy 09/14/2024 4:14 AM ESCROW REPRESENTATIVE Impressions 09/14/2024 6:23 AM ESCROW REPRESENTATIVE IMPRESSION: 1. Three-dimensional rendering for operative planning. The report is dictated by Catalino Phillips MD (vice president planning) Francisco Casey MD have personally reviewed and interpreted this examination/study. > Interpreting Provider: Francisco Friedman MD on 09/14/2024 6:23 AM Narrative 09/14/2024 6:23 AM ESCROW REPRESENTATIVE PROCEDURE: ??CT 3D RECON W INDEPENDENT WKSN, DATE/TIME OF EXAM: ??09/14/2024 3:57 AM, LOCATION ??[facility] INDICATION: T14.90XA: Trauma ADDITIONAL CLINICAL INFORMATION: [...] WKSN, DATE/TIME OF EXAM:09/14/2024 3:57 AM, LOCATION [facility] INDICATION: T14.90XA: Trauma ADDITIONAL CLINICAL INFORMATION: [...] report is dictated by Catalino Phillips MD (vice president planning) Francisco Casey MD have personally reviewed and interpreted this examination/study. > Interpreting Provider: Francisco Friedman MD on 09/14/2024 6:23 AM Kendal Demarco MD CT ORDERABLES * (ABNORMAL) BLOOD GAS+COOX+LYTES+METAB ARTERIAL POCT (09/14/2024 3:40 AM [facility]) pH Arterial 7.36 7.35 - 7.45 pH 09/14/2024 3:40 AM [facility] pO2 Arterial 77(L) 80 - 100 mmHg 09/14/2024 3:40 AM [facility] pCO2 Arterial 40 35 - 45 mmHg 3:40 AM [facility] HCO3 Arterial 22.6 20.0 - 30.0 mmol/L 09/14/2024 3:40 AM [facility] BE Arterial -2.6(L) -2.0 - 2.0 mmol/L 09/14/2024 3:40 AM [facility] Oxyhemoglobin Arterial 95.2 % 09/14/2024 3:40 AM [facility] Dexoyhemoglobin (HHB) % 2.5 % 09/14/2024 3:40 AM [facility] Methemoglobin 1.0 0.0 - 2.0 % 09/14/2024 3:40 AM [facility] Carboxyhemoglobin 1.4 0.0 - 2.0 % 2023 3:40 AM [facility] Comment:Carboxyhemoglobin No rmal Concentration: Non-smokers: 0-2%; Smokers: 0- 9%; Toxic: >20% O2 Content Arterial 13.5 Interpret within clinical context ml/dL 09/14/2024 3:40 AM [facility] Hemoglobin by COOX 10.0(L) 12.0 - 17.6 g/dL 09/14/2024 3:40 AM [facility] O2 Saturation Arterial 97 90 - 100 % 09/14/2024 3:40 AM [facility] Sodium Whole Blood 140 135 - 145 mmol/L 09/14/2024 3:40 AM [facility] Potassium Whole Blood 3.8 3.5 - 5.5 mmol/L 09/14/2024 3:40 AM [facility] Chloride WB 112(H) 78 - 107 mmol/L 09/14/2024 3:40 AM [facility] Calcium Ionized 1.16 mmol/L 3:40 AM [facility] Ionized Calcium pH Adjusted 1.14(L) 1.19 - 1.34 mmol/L 09/14/2024 3:40 AM [facility] Anion Gap (AG) Arterial 5(L) 6 - 16 mmol/L 09/14/2024 3:40 AM [facility] Glucose WB 157(H) 70 - 99 mg/dL 09/14/2024 3:40 AM [facility] Lactic Acid Whole Blood 1.2 <=2.0 mmol/L 09/14/2024 3:40 AM [facility] Blood, arterial ARTERIAL BLOOD SPECIMEN / Unknown 09/14/2024 3:40 AM ESCROW REPRESENTATIVE 09/14/2024 3:41 AM ESCROW REPRESENTATIVE Kendal Demarco MD LAB - POINT OF CARE ORDERABLES [address] [address], [email or web address] [phone] * BLOOD GAS ART+LYTES+METAB+COOX POC NOTIF (09/14/2024 3:34 AM ESCROW REPRESENTATIVE) Comment Notification Label Only - See Separate Report 09/14/2024 5:00 AM [facility] Other MISCELLANEOUS SAMPLES / Unknown 09/14/2024 3:34 AM ESCROW REPRESENTATIVE 09/14/2024 3:38 AM ESCROW REPRESENTATIVE Nitish Mcclellan DO LAB - BLOOD GASES OR DERABLES [facility] [address] [place] [phone], [email or web address] [phone] * PATHOLOGY TISSUE (09/14/2024 3:31 AM ESCROW REPRESENTATIVE) Case Report Surgical Pathology Report ? Case: [id number] ? Authorizing Provider: ??Kendal Demarco MD ? Collected: ? 09/14/2024 03:31 AM ? Ordering Location: ? [facility] ?Received: ?09/14/2024 08:07 AM ? Pathologist: ? Pippa Keene MD ? Specimen: ?Spleen ? 09/15/2024 8:31 AM [facility] PATH[facility] LAB Final Diagnosis Spleen, splenectomy: - Capsular disruption with hemorrhage and red pulp expansion consistent with trauma history 09/15/2024 8:31 AM [facility] PATH[facility] LAB Microscopic Description and Comment Microscopic examination substantiates the above captioned diagnosis. 09/15/2024 8:31 AM [facility] PATH[facility] Clinical History Traumatic injury 09/15/2024 8:31 AM [facility] Gross Description The requisition and specimen container(s) are identified with the patient's trauma designation, [facility] . Received fresh, specimen A [...] of extravasated blood extending throughout the spleen. Relations Coordinator sections are submitted in three cassettes labeled as follows: A1 soft tissue and vessel margins from the hilum, en face A2 section of capsular tear A3 additional section of splenic parenchyma with intraparenchymal hemorrhage. RB 09/15/2024 8:31 AM [facility] PATH[facility] LAB Pathologist Location at [facility] 09/15/2024 8:31 AM [facility] PATH[facility] LAB Disclaimer The performance characteristics of all immunohistochemical and indirect immunofluorescence stains (if any) cited in this report were determined by the Histopathology Laboratory of [facility]. Some of these tests were developed by [...] the attending (teaching) pathologist. 09/15/2024 8:31 AM [facility] PATH[facility] LAB Embedded Images 09/15/2024 8:31 AM [facility] LAB Biopsy, Excision ENTIRE SPLEEN / Unknown 09/14/2024 3:31 AM ESCROW REPRESENTATIVE 09/14/2024 8:07 AM ESCROW REPRESENTATIVE Comment:Pre-op diagnosis: TRAUMA Kendal Demarco MD LAB - PATHOLOGY/CYTO LOGY ORDERABLES [facility] PATH[facility] [address] [place] [address], [facility] [phone] * TRANSFUSE RED BLOOD CELL LEUKOREDUCED UNIT(S) (09/14/2024 2:50 AM ESCROW REPRESENTATIVE) Nitish Mcclellan DO NURSING - BLOOD PROD TRANSFUSION * TRANSFUSE FRESH FROZEN PLASMA UNIT(S) (09/14/2024 2:50 AM ESCROW REPRESENTATIVE) Nitish Mcclellan DO NURSING - BLOOD PROD TRANSFUSION * TRANSFUSE RED BLOOD CELL LEUKOREDUCED UNIT(S) (09/14/2024 2:41 AM ESCROW REPRESENTATIVE) Nitish V. Vy DO NURSING - BLOOD PROD TRANSFUSION * TRANSFUSE FRESH FROZEN PLASMA UNIT(S) (09/14/2024 2:41 AM ESCROW REPRESENTATIVE) Nitish V. Vy DO NURSING - BLOOD PROD TRANSFUSION * (ABNORMAL) BLOOD GAS+COOX+LYTES+METAB ARTERIAL POCT (09/14/2024 2:38 AM ESCROW REPRESENTATIVE) pH Arterial 7.29(L) 7.35 - 7.45 pH 09/14/2024 2:38 AM [facility] pO2 Arterial 162(H) 80 - 100 mmHg 09/14/2024 2:38 AM [facility] pCO2 Arterial 48(H) 35 - 45 mmHg 2:38 AM [facility] HCO3 Arterial 23.1 20.0 - 30.0 mmol/L 09/14/2024 2:38 AM [facility] BE Arterial -3.5(L) -2.0 - 2.0 mmol/L 09/14/2024 2:38 AM [facility] Oxyhemoglobin Arterial 97.1 % 09/14/2024 2:38 AM [facility] Dexoyhemoglobin (HHB) % <1.0 % 09/14/2024 2:38 AM [facility] Methemoglobin 1.2 0.0 - 2.0 % 09/14/2024 2:38 AM [facility] Carboxyhemoglobin 1.5 0.0 - 2.0 % 2023 2:38 AM [facility] Comment:Carboxyhemoglobin No rmal Concentration: Non-smokers: 0-2%; Smokers: 0- 9%; Toxic: >20% O2 Content Arterial 13.9 Interpret within clinical context ml/dL 09/14/2024 2:38 AM [facility] Hemoglobin by COOX 9.9(L) 12.0 - 17.6 g/dL 09/14/2024 2:38 AM [facility] O2 Saturation Arterial 100 90 - 100 % 09/14/2024 2:38 AM [facility] Sodium Whole Blood 141 135 - 145 mmol/L 09/14/2024 2:38 AM [facility] Potassium Whole Blood 3.3(L) 3.5 - 5.5 mmol/L 09/14/2024 2:38 AM [facility] Chloride WB 111(H) 78 - 107 mmol/L 09/14/2024 2:38 AM [facility] Calcium Ionized 1.25 mmol/L 2:38 AM [facility] Ionized Calcium pH Adjusted 1.19 1.19 - 1.34 mmol/L 09/14/2024 2:38 AM [facility] Anion Gap (AG) Arterial 7 6 - 16 mmol/L 09/14/2024 2:38 AM [facility] Glucose WB 132(H) 70 - 99 mg/dL 09/14/2024 2:38 AM [facility] Lactic Acid Whole Blood 1.3 <=2.0 mmol/L 09/14/2024 2:38 AM [facility] Blood, arterial ARTERIAL BLOOD SPECIMEN / Unknown 09/14/2024 2:38 AM ESCROW REPRESENTATIVE 09/14/2024 2:39 AM ESCROW REPRESENTATIVE Kendal Demarco MD LAB - POINT OF CARE ORDERABLES [address] [address], [facility] [phone] * BLOOD GAS ART+LYTES+METAB+COOX POC NOTIF (09/14/2024 2:36 AM ESCROW REPRESENTATIVE) Comment Notification Label Only - See Separate Report 09/14/2024 4:09 AM [facility] Other MISCELLANEOUS SAMPLES / Unknown Collection / Unknown 09/14/2024 2:36 AM ESCROW REPRESENTATIVE 09/14/2024 2:37 AM ESCROW REPRESENTATIVE Nitish Mcclellan DO LAB - BLOOD GASES OR DERABLES [facility] [address] [place] [address], [facility] [phone] * TRANSFUSE RED BLOOD CELL LEUKOREDUCED UNIT(S) (09/14/2024 2:26 AM ESCROW REPRESENTATIVE) Nitish V. Vy DO NURSING - BLOOD PROD TRANSFUSION * TRANSFUSE FRESH FROZEN PLASMA UNIT(S) (09/14/2024 2:08 AM ESCROW REPRESENTATIVE) Nitish V. Vy DO NURSING - BLOOD PROD TRANSFUSION * (ABNORMAL) BLOOD GAS+COOX+LYTES+METAB ARTERIAL POCT (09/14/2024 1:57 AM ESCROW REPRESENTATIVE) pH Arterial 7.30(L) 7.35 - 7.45 pH 09/14/2024 1:57 AM [facility] pO2 Arterial 76(L) 80 - 100 mmHg 09/14/2024 1:57 AM [facility] pCO2 Arterial 46(H) 35 - 45 mmHg 1:57 AM [facility] HCO3 Arterial 22.6 20.0 - 30.0 mmol/L 09/14/2024 1:57 AM [facility] BE Arterial -3.9(L) -2.0 - 2.0 mmol/L 09/14/2024 1:57 AM [facility] Oxyhemoglobin Arterial 94.6 % 09/14/2024 1:57 AM [facility] Dexoyhemoglobin (HHB) % 3.5 % 09/14/2024 1:57 AM [facility] Methemoglobin <0.8 0.0 - 2.0 % 09/14/2024 1:57 AM [facility] Carboxyhemoglobin 1.2 0.0 - 2.0 % 2023 1:57 AM [facility] Comment:Carboxyhemoglobin No rmal Concentration: Non-smokers: 0-2%; Smokers: 0- 9%; Toxic: >20% O2 Content Arterial 16.3 Interpret within clinical context ml/dL 09/14/2024 1:57 AM [facility] Hemoglobin by COOX 12.2 12.0 - 17.6 g/dL 09/14/2024 1:57 AM ESCROW REPRESENTATIVE [facility] O2 Saturation Arterial 96 90 - 100 % 09/14/2024 1:57 AM [facility] Sodium Whole Blood 139 135 - 145 mmol/L 09/14/2024 1:57 AM [facility] Potassium Whole Blood 4.0 3.5 - 5.5 mmol/L 09/14/2024 1:57 AM [facility] Chloride WB 105 78 - 107 mmol/L 09/14/2024 1:57 AM [facility] Calcium Ionized 0.84 mmol/L 1:57 AM [facility] Ionized Calcium pH Adjusted 0.81(L) 1.19 - 1.34 mmol/L 09/14/2024 1:57 AM [facility] Anion Gap (AG) Arterial 11 6 - 16 mmol/L 09/14/2024 1:57 AM [facility] Glucose WB 151(H) 70 - 99 mg/dL 09/14/2024 1:57 AM [facility] Lactic Acid Whole Blood 2.4(H) <=2.0 mmol/L 09/14/2024 1:57 AM [facility] Blood, arterial ARTERIAL BLOOD SPECIMEN / Unknown 09/14/2024 1:57 AM ESCROW REPRESENTATIVE 09/14/2024 1:57 AM ESCROW REPRESENTATIVE Kendal Demarco MD LAB - POINT OF CARE ORDERABLES Performing Organization Address City/[facility]/ZIP Co de Phone Number [address] [address], [facility] [phone] * BLOOD GAS ART+LYTES+METAB+COOX POC NOTIF (09/14/2024 1:54 AM ESCROW REPRESENTATIVE) Comment Notification Label Only - See Separate Report 09/14/2024 3:02 AM [facility] Other MISCELLANEOUS SAMPLES / Unknown 09/14/2024 1:54 AM ESCROW REPRESENTATIVE 09/14/2024 1:55 AM ESCROW REPRESENTATIVE Nitish Mcclellan DO LAB - BLOOD GASES OR DERABLES [address] [address], [facility] [phone] * 1 Units (09/14/2024 1:26 AM ESCROW REPRESENTATIVE) Unit Description LR Whole BLood [facility] Unit ABO O [facility] Unit Rh POS [facility] Product Number E0033 [facility] LO[facility]ANK LAB Unit Donor # [id number] [facility] Unit Status transfused [facility] BLO OD BANK LAB Product Code [id number] [facility] Blood Type Barcode 5100 [facility] Expiration Date S BLOOD BANK LAB Unit Description LR Whole BLood [facility] Unit ABO O [facility] Unit Rh POS [facility] Product Number E0033 [facility] B LOOD [facility] LAB Unit Donor # [id number] [facility] Unit Status transfused [facility] BLO OD BANK LAB Product Code [id number] [facility] BLO OD [facility] LAB Blood Type Barcode 5100 [facility] Expiration Date S BLOOD BANK LAB Blood Bank BLOOD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 REPRESENTATIVE 30 mg A bd Left Lower Quadrant $ Given 10/19/2024 8:30 AM ESCROW REPRESENTATIVE 30 mg Le ft Arm lidocaine (Lidoderm) 5 % patch 2 patch 2 patch, Administer over 12 Hours, EVERY 24 HOURS, First dose on Fri10/04/24 at 0915, Until Discontinued, Apply to back, left ribs and remove patch after a max of 12 hours of application within a 24 hour period. $ Applied 10/20/2024 8:53 AM ESCROW REPRESENTATIVE 2 patches Ba ck $ Applied 10/19/2024 8:36 AM ESCROW REPRESENTATIVE 2 patches Ba ck $ Applied 10/18/2024 10:09 AM ESCROW REPRESENTATIVE 2 patches B ack melatonin tablet 5 mg 5 mg, Enteral Tube, AT BEDTIME, First dose on Fri10/05/24 at 2100, Until Discontinued $ Given 10/19/2024 10:02 PM ESCROW REPRESENTATIVE 5 mg G Tu be $ Given 10/18/2024 8:54 PM ESCROW REPRESENTATIVE 5 mg G Tube $ Given 10/17/2024 9:25 PM ESCROW REPRESENTATIVE 5 mg G Tube oxyCODONE (immediate release) [...] oral intake $ Given 10/19/2024 10:03 PM ESCROW REPRESENTATIVE 5 mg G Tube $ Given 10/12/2024 5:32 AM ESCROW REPRESENTATIVE 5 mg G Tube $ Given 10/12/2024 2:00 AM ESCROW REPRESENTATIVE 5 mg G Tube polyethylene glycol 3350 (Miralax) packet 17 g 17 g, Enteral Tube, DAILY, First dose (after last modification) on Fri10/06/24 at 1430, Until Discontinued, Mix in 8 ounces of water, juice, soda, coffee or tea prior to administration $ Given 10/20/2024 8:53 AM ESCROW REPRESENTATIVE 17 g G Tube $ Given 10/19/2024 8:30 AM ESCROW REPRESENTATIVE 17 g G Tube $ Given 10/18/2024 8:44 AM ESCROW REPRESENTATIVE 17 g J Tube senna (Senokot) tablet 17.2 mg 17.2 mg, Enteral Tube, DAILY, First dose (after last modification) on Fri10/07/24 at 0900, Until Discontinued $ Given 10/20/2024 8:54 AM ESCROW REPRESENTATIVE 17.2 mg G Tube $ Given 10/19/2024 8:30 AM ESCROW REPRESENTATIVE 17.2 mg G Tube $ Given 10/18/2024 8:44 AM ESCROW REPRESENTATIVE 17.2 mg J Tube tamsulosin (Flomax) capsule 0.4 mg 0.4 mg, Enteral Tube, DAILY, First dose on Fri09/17/24 at 1145, Until Discontinued, At the same time every day after a meal. Do not crush or chew. May open capsule and administer contents per tube. J-tube administration is not appropriate as the small lumen would necessitate crushing of granules. $ Given 10/20/2024 8:54 AM ESCROW REPRESENTATIVE 0.4 mg G Tube $ Given 10/19/2024 8:30 AM ESCROW REPRESENTATIVE 0.4 mg G Tube $ Given 10/18/2024 8:45 AM ESCROW REPRESENTATIVE 0.4 mg J Tube traZODone (Desyrel) tablet 75 mg 75 mg, Enteral Tube, AT BEDTIME, First dose (after last modification) on Fri10/05/24 at 2100, Until Discontinued $ Given 10/19/2024 10:03 PM ESCROW REPRESENTATIVE 75 mg G Tube $ Given 10/18/2024 8:54 PM ESCROW REPRESENTATIVE 75 mg G Tube $ Given 10/17/2024 9:25 PM ESCROW REPRESENTATIVE 75 mg G Tube vitamin D3 (Cholecalciferol) 25 MCG (1000 UNITS) tablet 1,000 Units 1,000 Units, Enteral Tube, DAILY, First dose on Fri09/22/24 at 1415, Until Discontinued, 1000 units = 25 mcg $ Given 10/20/2024 8:54 AM ESCROW REPRESENTATIVE 1,000 Units G T ube $ Given 10/19/2024 8:30 AM ESCROW REPRESENTATIVE 1,000 Units G Tube $ Given 10/18/2024 8:44 AM ESCROW REPRESENTATIVE 1,000 Units J Tube documented in this encounter Active and Recently Administered Medications Times are shown in ESCROW REPRESENTATIVE. Scheduled Medication Order 10/18/2024 10/19/2024 10/20/2024 0.9% [...] RN)1459 ($ Given - Provider: Lucía Lu RN)2054 ($ Given - Provider: Klever Fernandez RN) [...] 0845 ($ Given - Provider: Lucía Lu RN)2054 ($ Given - Provider: Klever Fernandez RN) 0830 ($ Given - Provider: Lucía Lu RN)220 ($ Given - Provider: Trisha Chi, GLROIA) 0854 ($ Given - Provider: Zofia Arteaga, [...] Provider: Lucía Lu RN)2035 (Removed - Provider: rTisha Chi RN) 0853 ($ Applied - Provider: Zofia Arteaga RN)2052 (Due: Removed - Provider: Zofia Arteaga RN) melatonin tablet 5 mg 5 mg, Enteral Tube, AT BEDTIME, First dose on Fri10/05/24 at 2100, Until Discontinued 2053 ($ Given - Provider: Klever Fernandez RN) 2201 ($ Given - Provider: Trisha Chi, GLORIA) polyethylene glycol 3350 (Miralax) packet 17 g 17 g, Enteral Tube, DAILY, First dose (after last modification) on Fri10/06/24 at 1430, Until Discontinued, Mix in 8 ounces of water, juice, soda, coffee or tea prior to administration 0844 ($ Given - Provider: Lucía Lu RN) 0830 ($ Given - Provider: Lucía Lu RN) 0853 ($ Given - Provider: Zofia Arteaga, GLORIA) senna (Senokot) tablet 17.2 mg 17.2 mg, [...] RN) 2202 ($ Given - Provider: Trisha Chi, GLORIA) vitamin D3 (Cholecalciferol) 25 MCG (1000 UNITS) tablet 1,000 Units 1,000 Units, Enteral Tube, DAILY, First dose on Fri09/22/24 at 1415, Until Discontinued, 1000 units = 25 mcg 0844 ($ Given - Provider: Lucía Lu RN) 0830 ($ Given - Provider: Lucía Lu RN) 0814 ($ Given - Provider: Zofia Arteaga RN) [...] first unless patient cannot tolerate oral intake 2202 (See Alternative - Provider: Trisha Chi RN) [...] Under Investigation 10/06/2024 10/06/2024 10/06/2024 4:25 PM ESCROW REPRESENTATIVE documented as of this encounter Care Teams Pediatric Orthodontist Relationship Specialty Start Date End Date Ivis Marie, GLORIA Registered Nurse 09/14/24 documented as of this encounter
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
--- OUTSIDE RECORDS SUMMARY | 2024-11-07 04:59 | XMS_ITS | Encounter Summary ---
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 pressure checks and telemetry monitor Notable Events: None Handoff Given? Yes Checklist [...] team. NOTABLE EVENTS: No notable events documented. Joel Owusu TO BUCKER documented in this encounter Plan of Treatment Upcoming Encounters Date Type Department Care Team (Late st Contact Info) Description 11/12/2024 10:00 AM POTATO BUCKER [facility] - Orthopedics [address] [place] [phone] Elfego Temple T, DO [address] [place] [address] documented as of this encounter Visit Diagnoses Not on filedocumented in this encounter Administered Medications Inactive Administered Medications - up to 3 most recent administrations Medication Order MAR Action Action Date Dose Rate Site ertapenem (INVanz) 1,000 mg in 0.9% NaCl IV 50 mL IVPB Intravenous, CONTINUOUS PRN, Starting on Fri09/15/24 at 1044, Until Fri09/15/24 at 1208, Anesthesia Intra-op $ New Bag/Syringe 09/15/2024 10:19 AM POTATO BUCKER 1 g lactated ringers infusion at 125 mL/hr, Intravenous, CONTINUOUS, Starting on Fri09/15/24 at 0200, Until Fri09/15/24 at 1332 Restarted 09/15/2024 12:14 PM POTATO BUCKER 125 mL/hr Restarted 09/15/2024 9:40 AM POTATO BUCKER Current Rate 09/15/2024 7:00 AM POTATO BUCKER 125 mL/hr norepinephrine (Levophed) 8 mg/250 ml D5 infusion [...] restarting infusion. Rate Change 09/17/2024 3:38 PM POTATO BUCKER 0.06 mcg/kg/min 8.17 mL/hr Rate Change 09/17/2024 3:23 PM POTATO BUCKER 0.08 mcg/kg/min 10.89 m L/hr Rate Change 09/17/2024 12:46 PM POTATO BUCKER 0.1 mcg/kg/min 13.61 m L/hr phenylephrine 100 mcg/mL injection Intravenous, PRN, Starting on Fri09/15/24 at 1004, Until Fri09/15/24 at 1208, Anesthesia Intra-op $ Given 09/15/2024 11:25 AM POTATO BUCKER 100 mcg $ Given 09/15/2024 11:20 AM POTATO BUCKER 200 mcg $ Given 09/15/2024 11:16 AM POTATO BUCKER 200 mcg propofol (Diprivan) infusion Intravenous, CONTINUOUS PRN, Starting on Fri09/15/24 at 1143, Until Fri09/15/24 at 1208, Anesthesia Intra-op $ New Bag/Syringe 09/15/2024 11:43 AM POTATO BUCKER 25 mcg/kg/min 12.72 mL/hr rocuronium (Zemuron) injection Intravenous, PRN, Starting on Fri09/15/24 at 1001, Until Fri09/15/24 at 1208, Anesthesia Intra-op $ Given 09/15/2024 9:59 AM POTATO BUCKER 50 mg sugammadex (Bridion) injection Intravenous, PRN, Starting on Fri09/15/24 at 1206, Until Fri09/15/24 at 1208, Anesthesia Intra-op $ Given 09/15/2024 12:06 PM POTATO BUCKER 200 mg documented in this encounter Care Teams Assistant Finance Director Relationship Specialty Start Date End Date Ivis Marie RN Registered Nurse 09/14/24 documented as of this encounter
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
--- OUTSIDE RECORDS SUMMARY | 2024-11-07 04:59 | XMS_ITS | Encounter Summary ---
Author Organization [facility] Health Address [address] [place] [address] Care Team Providers Care Varnish Finisher Name Role Phone Ivis Marie RN Unavailable Unavailable Encounter Details Date Type Department Care Team (Latest Contact Info) Description 09/14/2024 Travel Social History Tobacco Use Types Packs/Day Years [...] and heating? Not hard at all 09/14/2024 [facility] Occup[facility] ional Health - Occupational Stress [...] any time in the past 12 m [facility], were you homeless or living in a fdc (including now)? No 09/14/2024 Sex and Gender [...] No 09/14/2024 documented as of this encounter Plan of Treatment Upcoming Encounters Date Type Department Care Team (Late st Contact Info) Description 11/12/2024 10:00 AM PROTOTYPE SPECIAL BUILD Office Visit [facility] - Orthopedics [address] [facility], [facility] [place] [address] Elfego Temple T, DO [address] [place] [phone] documented as of this encounter Visit Diagnoses Not on filedocumented in this encounter Care Teams Varnish Finisher Relationship Specialty Start Date End Date Ivis Marie RN Registered Nurse 09/14/24 documented as of this encounter
--- OUTSIDE RECORDS SUMMARY | 2024-11-07 05:00 | XMS_ITS | Encounter Summary ---
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 Patient extubated yesterday to MS. Remains stable on 6L NC. Dobhoff placed [...] discussed with family and extubated patient to MS. 1-2 hours following extubation, patient required escalation to NRB and HFNC, thus re-intubated. Again doing well on vent per ABG and SPO2. Levo weaned to 0.01, precedex increased to 0.09 due to pt pulling at ETT and lines. Graham removed againovernight per nurse infrastructure manager, however pt straight cathed x2 for [...] , INR , PTT in the last 46365 hours. Assessment/Plan: Neuro: Acute posttraumatic pain -continue [...] in SNF or acute rehab Kosta Corral APRN-FIELD PIPELINES SUPERVISOR 10/16/2024 6:45 AM ING AND COOLING SYSTEMS ENGINEER * Ella Landry OT - 10/15/2024 2:33 PM CST [facility] Physical Medicine and Rehabilitation Occupational Therapy Progress Note Patient: Lucian Sosa Med Record Number: [id number] Date of : 1940 Age: [age] year [...] rest breaks Modified Maria G: Current Modified Maria G [...] sitting with standby assist - added 10/14 Metal Sprayer Protective Coating Goal(s): Patient to discharge to appropriate next [...] light within reach, with RN in room. ING AND COOLING SYSTEMS ENGINEER * Tessa Gonzáles PA-C - 10/15/2024 1:47 [...] cervical collar now. 10/12: did not pass ASSISTANT BASEBALL COACH for diet 10/11. Activity as tolerated in [...] 100mg TID. 09/24: Patient extubated yesterday to MS. Remains stable on 6L NC. Dobhoff placed [...] discussed with family and extubated patient to MS. 1-2 hours following extubation, patient required escalation to NRB and HFNC, thus re-intubated. Again doing well on vent per ABG and SPO2. Levo weaned to 0.01, precedex increased to 0.09 due to pt pulling at ETT and lines. Graham removed againovernight per nurse infrastructure manager, however pt straight cathed x2 for [...] 3 mL Inhalation q6h PRN Kathy Mendoza, YARDAGE ESTIMATOR-MYRNA bisacodyl (Dulcolax) suppository 10 mg 10 mg [...] Transdermal q24h Kathy Mendoza APRN-CNP 2 patch at112/16/23 1137 melatonin tablet 5 [...] 17 g Enteral Tube QDAY Kathy Mendoza, YARDAGE ESTIMATOR-FIELD PIPELINES SUPERVISOR 17 gat 10/15/24 1140 senna (Senokot) tablet 17.2 mg 17.2 mg Enteral Tube QDAY Kathy Mendoza, YARDAGE ESTIMATOR- FIELD PIPELINES SUPERVISOR 17.2 mg at 10/15/24 1137 tamsulosin (Flomax) [...] 10/14. Tessa Gonzáles PA-C 10/15/2024 1:47 PM ING AND COOLING SYSTEMS ENGINEER * Marcella Wells RN - 10/15/2024 11:51 [...] Fax Patient Preferred [facility]) Selected Long Term [address] [facility] [address] -- [facility] Accepted [facility] [address] [facility] [phone] [facility] Pending - Request Sent -- [address] [address] [phone] -- [facility] Pending - Request Sent -- [address] [facility] [address] [phone] -- [facility] Pending - Request Sent -- [address] [facility] [address] [phone] -- [facility] Pending - Request Sent -- [address] [facility] [address] [phone] -- [facility] Pending - Request Sent -- [address] [facility] [address] [phone] -- [facility] Pending - Request Sent -- [address] [facility] [address] [phone] -- [facility] Pending - Request Sent -- [address] [facility] [address] [phone] -- [facility] Pending - Request Sent -- [address] [facility] [phone] -- Current Capacity last updated by Torri Mueller on 06/10/2024 1115 Renamed: [facility] (formerly [facility]) Pending - Request Sent -- [address] [facility] [address] [phone] -- [facility]) Pending - Request Sent -- [address] [facility] [phone] -- Current Capacity last updated by Nikki Parikh on 08/04/2024 1444 We have 6 available female beds and 6 available male beds. [facility] Pending - Request Sent -- [address] [facility] [address] [phone] -- [facility] Pending - No Request Sent -- [address] [facility] [phone] -- [facility]. Acute Rehab Pending - No Request Sent -- [address] [facility] [phone] -- Family Support (Name and Phone): Extended Emergency Contact Information Primary Emergency Contact: Anamaria Gomez Mobile Relation: Daughter Secondary Emergency Contact: Lilliam Campbell Relation: Grandchild Preferred language: Irish Internal Medicine Nurse needed? No Transportation at Discharge: Ambulance: READMISSION RISK SCORE is 13 at 11:51 AM 10/15/2024.: [email or web address] [email or web address] BENNETT, JEAN-Certification, A.D.N, BSN [phone] ING AND COOLING SYSTEMS ENGINEER * Gentry Cain RN - 10/15/2024 11:20 [...] agreement, if implemented Description: INTERVENTIONS Outcome: Progressing ING AND COOLING SYSTEMS ENGINEER * Izabel Yoder, PT - 10/15/2024 10:56 AM CST [facility] Physical Medicine and Rehabilitation Physical Therapy Progress Note Patient: Lucian Sosa Med Record Number: [id number] Date of : 1940 Age: [age] year [...] assist with appropriate AD - added 10/08 Retirement Goal(s): Patient to discharge to appropriate next [...] Gentry gomez, with fall mats in place. ING AND COOLING SYSTEMS ENGINEER * Tessa Gonzáles PA-C - 10/14/2024 5:30 PM CST Peer To Peer: Spoke with Care Transition Residential Program Manager for [facility]. They will review the latest therapy notes and update their recommendations. Tessa Gonzáles PA-C 10/14/2024 5:33 PM ING AND COOLING SYSTEMS ENGINEER * Kd Lacey SLP - 10/14/2024 4:10 PM CST [facility] Physical Medicine and Rehabilitation Swallow Therapy Patient: Lucian Sosa Med Record Number: [id number] Date of : 1940 Age: [age] year [...] Impression - Pharyngeal: Mild Education/Interventions: While performing ASSISTANT BASEBALL COACH, Patient was instructed in: results of swallow [...] oropharyngeal swallow function to warrant diet upgrade. Metal Sprayer Protective Coating Goal (s): Patient to be independent/baseline with functional mobility and self care and be able to safely discharge to prior level of care. Kd Munson M.A., [facility]-ASSISTANT BASEBALL COACH Speech Language Pathologist [phone] ING AND COOLING SYSTEMS ENGINEER * Rodríguez Reina MSW - 10/14/2024 4:05 PM CST Summary Note Discharge Level of Care: acute rehab vs SNF Discharge Destination: [facility] Insurance Auth: Denied - peer to peer offered by calling [phone] opt 5 by tomorrow morning [id number] Anticipated Mode of Transportation:EMS Contacts (Name, relationship, phone #): Anamaria daughter [phone] Anticipated DC Date:10/15 Pending Needs: Insurance auth to be approved Comments: SW called and spoke with pt's daughter Anamaria and provided update on the insurance denying. EASTON Moore 10/14/2024 ' ING AND COOLING SYSTEMS ENGINEER * Ella Landry OT - 10/14/2024 10:33 AM CST [facility] Physical Medicine and Rehabilitation Occupational Therapy Progress Note Patient: Lucian Sosa Med Record Number: [id number] Date of : 1940 Age: [age] year [...] Facial Hygiene: Minimal Assistance (to wash face, [place] to initiate; max cueing) Upper Body Dressing: Maximal Assistance (to adjust gown) Lower Body Dressing: Total Assistance (to adjust socks while supported in bed) Toileting: Total Assistance (for posterior hygiene while in bed) Splint Issued/Checked: none ACTIVITY TOLERANCE: Activity Tolerance: Requires rest breaks Modified [place]: Current Modified [place] Score: 4 AM-PAC 6 Clicks Daily Activity [...] sitting with standby assist - added 10/14 Metal Sprayer Protective Coating Goal(s): Patient to discharge to appropriate next [...] under patient, with call light within reach. ING AND COOLING SYSTEMS ENGINEER * Izabel Yoder, PT - 10/14/2024 9:51 AM CST [facility] Physical Medicine and Rehabilitation Physical Therapy Progress Note Patient: Lucian Sosa Med Record Number: [id number] Date of : 1940 Age: [age] year [...] assist with appropriate AD - added 10/08 Metal Sprayer Protective Coating Goal(s): Patient to discharge to appropriate next [...] fall mats in place, all lines/tubes intact. ING AND COOLING SYSTEMS ENGINEER * Tessa Gonzáles PA-C - 10/14/2024 8:15 [...] cervical collar now. 10/12: did not pass ASSISTANT BASEBALL COACH for diet 10/11. Activity as tolerated in [...] 100mg TID. 09/24: Patient extubated yesterday to MS. Remains stable on 6L NC. Dobhoff placed [...] discussed with family and extubated patient to MS. 1-2 hours following extubation, patient required escalation to NRB and HFNC, thus re-intubated. Again doing well on vent per ABG and SPO2. Levo weaned to 0.01, precedex increased to 0.09 due to pt pulling at ETT and lines. Graham removed againovernight per nurse infrastructure manager, however pt straight cathed x2 for [...] q12h Yolanda Crane, DO 30 mg at 10/13/242057 Haemophilus B Conjugate Vaccine (ActHIB; 6wk+) (Hib (PRP-T)) 0.5 mL 0.5 mL Intramuscular Immunization - Once Kendal Demarco MD lidocaine (Lidoderm) 5 % patch 2 patch 2 patch Transdermal q24h Kathy Mendoza APRN-FIELD PIPELINES SUPERVISOR 2 patch at112/14/23 0933 melatonin tablet 5 [...] 17 g Enteral Tube QDAY Kathy Mendoza, YARDAGE ESTIMATOR-FIELD PIPELINES SUPERVISOR 17 gat 10/13/24 0932 senna (Senokot) tablet 17.2 mg 17.2 mg Enteral Tube QDAY Kathy Mendoza, YARDAGE ESTIMATOR- FIELD PIPELINES SUPERVISOR 17.2 mg at 10/13/24 0933 tamsulosin (Flomax) [...] Rehab. Tessa Gonzáles PA-C 10/14/2024 8:16 AM ING AND COOLING SYSTEMS ENGINEER * Jacob Horton MD - 10/14/2024 5:21 [...] , INR , PTT in the last 37454 hours. Vitamin D Recent Labs Component Name 09/14/24 0013 KRYM07MF 17.9* Vitals BP 126/70 (BP Location: Left [...] please contact Ortho Trauma APPs or send Pikimal chat to PATRIC. For urgent questions, please page Ortho Trauma service pager through [facility]. To avoid delays in communication and patient care, please do not use [employer] Secure Chat. Patient will require follow up in the office with Dr. Roldan 2 week(s) after discharge. Ortho office staff to help arrange. Please notify Ortho Trauma PATRIC when patient is ready for discharge. Contact information below: [facility] Office Schedulers: [phone], option 1 Jacob Horton MD 10/14/2024 1:51 PM ING AND COOLING SYSTEMS ENGINEER Associated attestation - Marcella Roldan MD - 10/15/2024 10:48 AM HEATING AND COOLING SYSTEMS ENGINEER ATTENDING ADDENDUM: Patient discussed during rounds. I confirm the history, physical exam, assessment and plan. Please see resident note for further details. Marcella Roldan MD 10/15/2024 10:48 AM * Mallory Castle SLP - 10/13/2024 1:33 PM CST [facility] Physical Medicine and Rehabilitation Swallow Treatment Patient: Lucian Sosa Med Record Number: [id number] Date of : 1940 Age: [age] year [...] Impression - Pharyngeal: Moderate Treatment/Education/Interventions: While performing ASSISTANT BASEBALL COACH, Patient and Caregiver was instructed in: recommendations [...] clinical signs of aspiration and aspiration precautions. Retirement Goal (s): Patient to be independent/baseline with functional mobility and self care and be able to safely discharge to prior level of care. Plan: ASSISTANT BASEBALL COACH to follow for PO trials as able ING AND COOLING SYSTEMS ENGINEER * Marcella Wells RN - 10/13/2024 1:02 PM CST Care Coordination Progress Note Expected Discharge Date: 10/14/2024 Discharge Plan: Plan is for dc to [facility]; waiting on insurance authorization; SW following referral and will manage transfer and transportation. Family Support (Name and Phone): Extended Emergency Contact Information Primary Emergency Contact: Anamaria Gomez Mobile Relation: Daughter Secondary Emergency Contact: Lilliam Campbell [place] Relation: Grandchild Preferred language: Irish Internal Medicine Nurse needed? No Transportation at Discharge: Family:, EMS READMISSION RISK SCORE is 13 at 1:02 PM 10/13/2024.: [email or web address] [email or web address] JEAN BENNETT MA-Certification, A.D.N, BSN [phone] ING AND COOLING SYSTEMS ENGINEER * Kosta Corral, YARDAGE ESTIMATOR-FIELD PIPELINES SUPERVISOR - 10/13/2024 9:46 AM CST Images from [...] cervical collar now. 10/12: did not pass ASSISTANT BASEBALL COACH for diet 10/11. Activity as tolerated in [...] 100mg TID. 09/24: Patient extubated yesterday to MS. Remains stable on 6L NC. Dobhoff placed [...] discussed with family and extubated patient to MS. 1-2 hours following extubation, patient required escalation to NRB and HFNC, thus re-intubated. Again doing well on vent per ABG and SPO2. Levo weaned to 0.01, precedex increased to 0.09 due to pt pulling at ETT and lines. Graham removed againovernight per nurse infrastructure manager, however pt straight cathed x2 for [...] abdominal incision: skin well healed, edges approximated, avial, out no drainage and open to air. [...] , INR , PTT in the last 49069 hours. Assessment/Plan: Neuro: Acute posttraumatic pain -continue [...] restorative services in acute rehab Kosta Corral APRN-FIELD PIPELINES SUPERVISOR 10/13/2024 9:46 AM ING AND COOLING SYSTEMS ENGINEER * Andrea Botello RN - 10/12/2024 10:26 PM CST Notified MD of patient lack of iv access and about patient unwillingness to get another one. Received ok to leave it out for now. ING AND COOLING SYSTEMS ENGINEER * Kosta Corral APRN-CNP - 10/12/2024 2:18 PM CST Family Notification Documentation Contact made: 10/12/2024 2:18 PM Person(s) contacted: Anamaria Gomez Method of communication: Phone Phone number: [phone] Duration of discussion: 5 minutes Summary of discussion Discussed results of CT C-spine Discussed results of ASSISTANT BASEBALL COACH eval 10/11 All questions answered Discussed PT/OT needed and ARU indications All questions answered ING AND COOLING SYSTEMS ENGINEER * Breana Morrell RD/EMMETT - 10/12/2024 12:34 [...] fractures and wounds.Trauma following. Pt is AxOx1. ASSISTANT BASEBALL COACH evaluated on 12/12 with the results of [...] allergies Last % Meal Taken: 0 % (10/01/241041) 48 hr PO INTAKE No data recorded [...] with current goal LUIS CARLOS Webber Ascom:[id number] ING AND COOLING SYSTEMS ENGINEER * Damian Shepard - 10/12/2024 12:29 PM CST Cleaning Handyman greeted family at bedside of patient. Cleaning Handyman engaged the loved ones in conversation and provided a compassionate presence. No spiritual needs at this time. Spiritual care is available 24/s needed or requested. Damian Shepard 10/12/2024 12:32 PM [id number]/[id number] ING AND COOLING SYSTEMS ENGINEER * Yolanda Juárez COTA - 10/12/2024 10:51 AM CST [facility] Physical Medicine and Rehabilitation Occupational Therapy Progress Note Patient: Lucian Sosa Med Record Number: [id number] Date of : 1940 Age: [age] year [...] (don gown in supine) ACTIVITY TOLERANCE: Modified [place]: AM-PAC 6 Clicks Daily Activity Raw Score:: [...] sit with moderate assist and X 2 Metal Sprayer Protective Coating Goal(s): Patient to discharge to appropriate next [...] with RN in room, all lines/tubes intact. ING AND COOLING SYSTEMS ENGINEER * Izabel Yoder, PT - 10/12/2024 10:48 AM CST [facility] Physical Medicine and Rehabilitation Physical Therapy Progress Note Patient: Lucian Sosa Med Record Number: [id number] Date of : 1940 Age: [age] year [...] assist with appropriate AD - added 10/08 Retirement Goal(s): Patient to discharge to appropriate next [...] with RN in room, all lines/tubes intact. ING AND COOLING SYSTEMS ENGINEER * Zofia Arteaga RN - 10/12/2024 8:18 [...] safe and free from injury. Outcome: Progressing ING AND COOLING SYSTEMS ENGINEER * Kosta Corral, YARDAGE ESTIMATOR-FIELD PIPELINES SUPERVISOR - 10/12/2024 7:02 AM CST Images from [...] division Interval History: 10/12: did not pass ASSISTANT BASEBALL COACH for diet 10/11. Activity as tolerated in [...] discussed with family and extubated patient to MS. 1-2 hours following extubation, patient required escalation to NRB and HFNC, thus re-intubated. Again doing well on vent per ABG and SPO2. Levo weaned to 0.01, precedex increased to 0.09 due to pt pulling at ETT and lines. Graham removed againovernight per nurse infrastructure manager, however pt straight cathed x2 for [...] , INR , PTT in the last 80378 hours. 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 Will inform the oncoming nurse and speech of this ING AND COOLING SYSTEMS ENGINEER * Kd Lacey, CARLENE - 10/11/2024 2:45 PM CST [facility] Physical Medicine and Rehabilitation Swallow Therapy Patient: Lucian Sosa Med Record Number: [id number] Date of : 1940 Age: [age] year old Impressions: Patient's swallow function reassessed at bedside. Patient completed trial of ice chips, thin liquids and puree. Patient demonstrated consistent s/s of aspiration, including delayed swallow, wet vocal quality and cough and required max cues and encouragement to participate with ASSISTANT BASEBALL COACH. ST continues to recommend NPO with TFs [...] Impression - Pharyngeal: Moderate Education/Interventions: While performing ASSISTANT BASEBALL COACH, Patient was instructed in: results of swallow [...] oropharyngeal swallow function to warrant diet upgrade. Retirement Goal (s): Patient to be independent/baseline with functional mobility and self care and be able to safely discharge to prior level of care. Kd Munson M.A., [facility]-ASSISTANT BASEBALL COACH Speech Language Pathologist [phone] ING AND COOLING SYSTEMS ENGINEER * Izabel Yoder, PT - 10/11/2024 2:05 PM CST [facility] Physical Medicine and Rehabilitation Physical Therapy Progress Note Patient: Lucian Sosa Med Record Number: [id number] Date of : 1940 Age: [age] year [...] assist with appropriate AD - added 10/08 Retirement Goal(s): Patient to discharge to appropriate next [...] area, nurse Mary aware and agreeable . ING AND COOLING SYSTEMS ENGINEER * Yolanda Juárez COTA - 10/11/2024 2:05 PM CST [facility] Physical Medicine and Rehabilitation Occupational Therapy Progress Note Patient: Lucian Sosa Med Record Number: [id number] Date of : 1940 Age: [age] year [...] (don gown in supine) ACTIVITY TOLERANCE: Modified [place]: AM-PAC 6 Clicks Daily Activity Raw Score:: [...] sit with moderate assist and X 2 Metal Sprayer Protective Coating Goal(s): Patient to discharge to appropriate next [...] area, nurse Mary aware and agreeable . ING AND COOLING SYSTEMS ENGINEER * Nakul El MD - 10/11/2024 1:00 PM CST Orthopaedic Spine Surgery Plan of Care Note Lucian Sosa Repeat cervical spine CT reviewed with attending. Demonstrates unchanged alignment from prior imaging study. Continue AAT in a soft collar. Currently has follow up scheduled with Dr. Collier on 11/03/24 Please page with questions Nakul El MD 10/11/2024 1:00 PM ING AND COOLING SYSTEMS ENGINEER * Alexandria Villa RN - 10/11/2024 10:55 AM CST Images from the original note were not included. Reassessment of sacrococcygeal area, per trauma services, it is a trauma related injury, New photo obtained: Pt may benefit from TRIAD paste and sacral mepilex border daily. Pt is on a Pulsate mattress. He isrolling/scooting all over, difficult to stay repositioned and offloaded. ING AND COOLING SYSTEMS ENGINEER * Marcella Wells, GLORIA - 10/11/2024 10:50 AM CST Images from [...] Fax Patient Preferred [facility] Selected Long Term [address] [address] [phone] -- [facility] Pending - Request Sent -- [address] [facility] [phone] [facility] Pending - Request Sent -- [address] [address] [phone] -- [facility] Pending - Request Sent -- [address] [facility] [address] [phone] -- [facility] Pending - Request Sent -- [address] [facility] [address] [phone] -- [facility] Pending - Request Sent -- [address] [facility] [address] [phone] -- [facility] Pending - Request Sent -- [address] [facility] [address] [phone] -- [facility] Pending - Request Sent -- [address] [facility] [phone] -- [facility] Pending - No Request Sent -- [address] [facility] [phone] -- [facility]. Acute Rehab Pending - No Request Sent -- [address] [facility] [phone] -- Family Support (Name and Phone): Extended Emergency Contact Information Primary Emergency Contact: Anamaria Gomez Mobile Relation: Daughter Secondary Emergency Contact: Lilliam Campbell [place] Relation: Grandchild Preferred language: Irish Internal Medicine Nurse needed? No Transportation at Discharge: Family:, EMS READMISSION RISK SCORE is 11 at 10:50 AM 10/11/2024.: [email or web address] JEAN BENNETT, MA-Certification, A.D.N, BSN [phone] ING AND COOLING SYSTEMS ENGINEER * Zofia Arteaga RN - 10/11/2024 8:30 [...] treatment and care. Description: INTERVENTIONS Outcome: Progressing ING AND COOLING SYSTEMS ENGINEER * Sean Natarajan MD - 10/11/2024 7:42 [...] discussed with family and extubated patient to MS. 1-2 hours following extubation, patient required escalation to NRB and HFNC, thus re-intubated. Again doing well on vent per ABG and SPO2. Levo weaned to 0.01, precedex increased to 0.09 due to pt pulling at ETT and lines. Graham removed againovernight per nurse infrastructure manager, however pt straight cathed x2 for [...] injection 30 mg 30 mg Subcutaneous q12h Solomonosterabhijeet Yolanda, DO 30 mg at 10/11/24 0511 furosemide [...] Intramuscular Immunization - Once Kathy Mendoza APRN-MYRNA Meningococcal Serogroup B Vaccine (Bexsero; 10y+) (MenB-4C) 0.5 mL 0.5 mL Intramuscular Immunization - Once aKthy Mendoza APRN-FIELD PIPELINES SUPERVISOR oxyCODONE (immediate release) (Roxicodone) tablet 5 mg 5 mg Enteral Tube q6h PRN Francisco Gould MD 5 mg at 10/11/24 0300 Or oxyCODONE (immediate release) (Roxicodone) tablet 2.5 mg 2.5 mg Enteral Tube q6h PRN Francisco Gould MD Pneumococcal Conjugate Vaccine, 20 valent (Prevnar 20; 6wk+) (PCV20) 0.5 mL 0.5 mL Intramuscular Immunization - Once Kathy Mendoza APRN-FIELD PIPELINES SUPERVISOR polyethylene glycol 3350 (Miralax) packet 17 g 17 g Enteral Tube QDAY Kathy Mendoza APRN-FIELD PIPELINES SUPERVISOR 17 gat 10/10/24 1003 senna (Senokot) tablet 17.2 mg 17.2 mg Enteral Tube QDAY Kathy Mendoza YARDAGE ESTIMATOR- FIELD PIPELINES SUPERVISOR 17.2 mg at 10/10/24 1002 tamsulosin (Flomax) capsule 0.4 mg 0.4 mg Enteral Tube QDAY Thang Gaines, DO 0.4 mg at 10/10/24 1002 traZODone (Desyrel) tablet 75 mg 75 mg Enteral Tube AT BEDTIME Tessa Gonzáles PA-C 75 mg at 10/10/242021 vitamin D3 (Cholecalciferol) 25 MCG (1000 UNITS) tablet 1,000 Units 1,000 Units Enteral Tube QDAY hTang Gaines, DO 1,000 Units at 10/10/24 1002 [...] today. Sean Natarajan MD 10/11/2024 10:12 AM ING AND COOLING SYSTEMS ENGINEER * Kathy Mendoza, YARDAGE ESTIMATOR-FIELD PIPELINES SUPERVISOR - 10/10/2024 12:31 PM CST Trauma Floor [...] today for goals of care discussions. 10/04: DEBORAHON VSS, weaned to 2 L with no [...] 100mg TID. 09/24: Patient extubated yesterday to MS. Remains stable on 6L NC. Dobhoff placed [...] discussed with family and extubated patient to MS. 1-2 hours following extubation, patient required escalation to NRB and HFNC, thus re-intubated. Again doing well on vent per ABG and SPO2. Levo weaned to 0.01, precedex increased to 0.09 due to pt pulling at ETT and lines. Graham removed againovernight per nurse infrastructure manager, however pt straight cathed x2 for [...] 3 mL Inhalation q6h PRN Kathy Mendoza, YARDAGE ESTIMATOR-FIELD PIPELINES SUPERVISOR aspirin chew tablet 81 mg 81 mg [...] Barrier to discharge: SNF placement Kathy Mendoza APRN-FIELD PIPELINES SUPERVISOR 10/10/2024 12:32 PM ING AND COOLING SYSTEMS ENGINEER Associated attestation - Bong Edmondson MD - 10/11/2024 3:05 PM HEATING AND COOLING SYSTEMS ENGINEER Patient seen and examined with the residents. [...] agreement, if implemented Description: INTERVENTIONS Outcome: Progressing ING AND COOLING SYSTEMS ENGINEER * Zofia Arteaga RN - 10/09/2024 12:21 [...] 1220 by Zofia Arteaga RN Outcome: Progressing ING AND COOLING SYSTEMS ENGINEER * Zofia Arteaga RN - 10/09/2024 12:20 [...] effective coping strategies Description: INTERVENTIONS Outcome: Progressing ING AND COOLING SYSTEMS ENGINEER * Kathy Mendoza, YARDAGE ESTIMATOR-FIELD PIPELINES SUPERVISOR - 10/09/2024 9:15 AM CST Trauma Floor [...] 100mg TID. 09/24: Patient extubated yesterday to MS. Remains stable on 6L NC. Dobhoff placed [...] discussed with family and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 MD on 09/30/2024 1:14 PM Procedure Note Maryanne Horner MD - 09/30/2024 EXAMINATION: XR CHEST 1VW PORTABLE DATE/TIME OF EXAM: 09/30/2024 12:09 PM, LOCATION [facility] HISTORY: S22.43XA: Multiple fractures of ribs, [...] obscured. Report dictated by Valerio Mckay DO, (Metal Crafts Teacher). Maryanne Casey MD have personally reviewed and interpreted this examination/study. > Interpreting Provider: Maryanne Horner MD on 09/30/2024 1:14 PM Kosta Corral YARDAGE ESTIMATOR-FIELD PIPELINES SUPERVISOR DIAGNOSTIC IMAG ING ORDERABLES * MAGNESIUM BLOOD (09/30/2024 1:25 AM HEATING AND COOLING SYSTEMS ENGINEER) Magnesium 2.3 1.6 - 2.6 mg/dL 09/30/2024 2:10 AM HEATING AND COOLING SYSTEMS ENGINEER [facility] Blood BLOOD SPECIMEN / Unknown Venipuncture / Unknown 09/30/2024 1:25 AM HEATING AND COOLING SYSTEMS ENGINEER 09/30/2024 1:32 AM HEATING AND COOLING SYSTEMS ENGINEER Gibran Grande PA-C LAB - CHEMISTRY O RDERABLES Performing Organization Address City/[facility]/ZIP Co de Phone Number [facility] [address] [place] [address], [place] [phone] * (ABNORMAL) BASIC METABOLIC PANEL (CALCIUM TOTAL) [...] Unknown Venipuncture / Unknown 09/30/2024 1:25 AM HEATING AND COOLING SYSTEMS ENGINEER 09/30/2024 1:32 AM [facility] Gibran Grande PA-C LAB - CHEMISTRY O RDERABLES Performing Organization Address City/[facility]/ZIP Co de Phone Number [facility] [address] [place] [address], [place] [phone] * PHOSPHORUS BLOOD (09/30/2024 12:34 AM HEATING AND COOLING SYSTEMS ENGINEER) Phosphorus 3.1 2.8 - 5.1 mg/dL 09/30/2024 1:14 AM [facility] Blood BLOOD SPECIMEN / Unknown Venipuncture / Unknown 09/30/2024 12:34 AM HEATING AND COOLING SYSTEMS ENGINEER 09/30/2024 12:40 AM HEATING AND COOLING SYSTEMS ENGINEER Gibran Grande PA-C LAB - CHEMISTRY O RDERABLES [facility] [address] [place] [address], [facility] [phone] * (ABNORMAL) CBC W/O DIFFERENTIAL (09/30/2024 12:34 AM [facility]) WBC 15.7(H) 4.0 - 10.7 x10E9/L 09/30/2024 [...] Unknown Venipuncture / Unknown 09/30/2024 12:34 AM HEATING AND COOLING SYSTEMS ENGINEER 09/30/2024 12:40 AM HEATING AND COOLING SYSTEMS ENGINEER Gibran Grande PA-C LAB - HEMATOLOGY ORDERABLES Performing Organization Address [facility]/ZIP Co de Phone Number [address] [address], [facility] [phone] * (ABNORMAL) CALCIUM IONIZED WHOLE BLOOD (09/30/2024 12:34 AM HEATING AND COOLING SYSTEMS ENGINEER) Calcium Ionized 0.98 mmol/L 09/30/2024 12:41 AM [facility] pH 7.56(H) 7.35 - 7.45 pH 09/30/2024 12:41 AM [facility] Ionized Calcium pH Adjusted 1.05(L) 1.19 - 1.34 mmol/L 09/30/2024 12:41 AM [facility] Blood BLOOD SPECIMEN / Unknown Venipuncture / Unknown 09/30/2024 12:34 AM HEATING AND COOLING SYSTEMS ENGINEER 09/30/2024 12:38 AM HEATING AND COOLING SYSTEMS ENGINEER Gibran Grande PA-C LAB - CHEMISTRY O RDERABLES Performing Organization Address [facility]/ZIP Co de Phone Number [address] [address], [facility] [phone] * XR Pelvis Judet Views (09/29/2024 5:00 PM HEATING AND COOLING SYSTEMS ENGINEER) Anatomical Region Laterality Modality Pelvis Digital Radiogra phy 09/30/2024 9:51 AM HEATING AND COOLING SYSTEMS ENGINEER Narrative 09/30/2024 11:26 AM HEATING AND COOLING SYSTEMS ENGINEER PROCEDURE: ??XR PELVIS JUDET VIEWS, XR PELVIS AP W INLET OUTLET DATE/TIME OF EXAM: ??09/29/2024 5:45 PM CLINICAL INFORMATION: None relevant/not provided if blank. Indication: S32.9XXA: Closed displaced fracture of pelvis, unspecified part of pelvis, initial encounter ([facility]) Additional History: ADDITIONAL CLINICAL INFORMATION: Ordering Provider Reason For Exam: ??- B/L pubic root fx extending to anterior tab - L inferior pubic ramus - L Sacral ala fx (accession [id number]), - B/L pubic root fx extending to anterior tab (accession [id number]) COMPARISON: X-ray pelvis 09/21/2024. TECHNIQUE: AP and [...] Dictated by Manjula Bruno MD, (vice president client services). I, Pratima Haynes MD have personally reviewed [...] pelvis, unspecifiedpart of pelvis, initial encounter ([facility]) Additional History: ADDITIONAL CLINICAL INFORMATION: Ordering Provider Reason For Exam: - B/L pubic root fx extending to anterior tab - L inferior pubic ramus - L Sacral ala fx (accession [id number]), - B/L pubic root fx extending to anterior tab (accession [id number]) COMPARISON: X-ray pelvis 09/21/2024. TECHNIQUE: AP and [...] Dictated by Manjula Bruno MD, (vice president client services). I, Pratima Haynes MD have personally reviewed and interpreted this examination/study. > Interpreting Provider: Pratima Haynes MD on 09/30/2024 11:26 AM Gabriela Perales PA-C DIAGNOSTIC IMAGING ORDERABLES * XR Pelvis AP W Inlet Outlet (09/29/2024 5:00 PM HEATING AND COOLING SYSTEMS ENGINEER) Anatomical Region Laterality Modality Pelvis Digital Radiogra phy 09/30/2024 9:51 AM HEATING AND COOLING SYSTEMS ENGINEER Narrative 09/30/2024 11:26 AM HEATING AND COOLING SYSTEMS ENGINEER PROCEDURE: ??XR PELVIS JUDET VIEWS, XR PELVIS AP W INLET OUTLET DATE/TIME OF EXAM: ??09/29/2024 5:45 PM CLINICAL INFORMATION: None relevant/not provided if blank. Indication: S32.9XXA: Closed displaced fracture of pelvis, unspecified part of pelvis, initial encounter ([facility]) Additional History: ADDITIONAL CLINICAL INFORMATION: Ordering Provider Reason For Exam: ??- B/L pubic root fx extending to anterior tab - L inferior pubic ramus - L Sacral ala fx (accession [id number]), - B/L pubic root fx extending to anterior tab (accession [id number]) COMPARISON: X-ray pelvis 09/21/2024. TECHNIQUE: AP and [...] Dictated by Manjula Bruno MD, (vice president client services). Pratima Casey MD have personally reviewed and [...] pelvis, unspecifiedpart of pelvis, initial encounter ([facility]) Additional History: ADDITIONAL CLINICAL INFORMATION: Ordering Provider Reason For Exam: - B/L pubic root fx extending to anterior tab - L inferior pubic ramus - L Sacral ala fx (accession [id number]), - B/L pubic root fx extending to anterior tab (accession [id number]) COMPARISON: X-ray pelvis 09/21/2024. TECHNIQUE: AP and [...] Dictated by Manjula Bruno MD, (vice president client services). Pratima Casey MD have personally reviewed and interpreted this examination/study. > Interpreting Provider: Pratima Haynes MD on 09/30/2024 11:26 AM Gabriela Perales PA-C DIAGNOSTIC IMAGING ORDERABLES * XR Scapula Left (09/29/2024 5:00 PM HEATING AND COOLING SYSTEMS ENGINEER) Anatomical Region Laterality Modality Upper Extremity Digital Radiogra phy 09/30/2024 10:0 4 AM HEATING AND COOLING SYSTEMS ENGINEER Impressions 09/30/2024 11:47 AM HEATING AND COOLING SYSTEMS ENGINEER IMPRESSION: Unchanged in alignment of superior scapular fracture. > Dictated by Manjula Bruno MD, (vice president client services). Pratima Casey MD have personally reviewed and interpreted this examination/study. > Interpreting Provider: Pratima Haynes MD on 09/30/2024 11:47 AM Narrative 09/30/2024 11:47 AM HEATING AND COOLING SYSTEMS ENGINEER PROCEDURE: ??XR SCAPULA LEFT DATE/TIME OF EXAM: [...] Dictated by Manjula Bruno MD, (vice president client services). Pratima Casey MD have personally reviewed and interpreted this examination/study. > Interpreting Provider: Pratima Haynes MD on 09/30/2024 11:47 AM Gabriela Perales PA-C DIAGNOSTIC IMAGING ORDERABLES * XR Chest 1Vw Portable (09/29/2024 4:29 AM HEATING AND COOLING SYSTEMS ENGINEER) Anatomical Region Laterality Modality Chest Digital Radiogra phy 09/29/2024 9:33 AM HEATING AND COOLING SYSTEMS ENGINEER Narrative 09/29/2024 11:33 PM HEATING AND COOLING SYSTEMS ENGINEER EXAMINATION: XR CHEST 1VW PORTABLE DATE/TIME OF EXAM: ??09/29/2024 4:29 AM, LOCATION ??[facility] HISTORY: S22.43XA: Multiple fractures of ribs, [...] obscured. Report dictated by Valerio Mckay DO (Metal Crafts Teacher). Layo Casey MD have personally reviewed and interpreted this examination/study. > Interpreting Provider: Layo Adhikari MD on 09/29/2024 11:33 PM Procedure Note Layo Adhikari MD - 09/29/2024 EXAMINATION: XR CHEST 1VW PORTABLE DATE/TIME OF EXAM: 09/29/2024 4:29 AM, LOCATION [facility] HISTORY: S22.43XA: Multiple fractures of ribs, [...] obscured. Report dictated by Valerio Mckay DO (Metal Crafts Teacher). Layo Casey MD have personally reviewed and interpreted this examination/study. > Interpreting Provider: Layo Adhikari MD on 09/29/2024 11:33 PM Kendal Demarco MD DIAGNOSTIC IMAGING O RDERABLES * PHOSPHORUS BLOOD (09/29/2024 12:18 AM HEATING AND COOLING SYSTEMS ENGINEER) [facility] Phosphorus 3.3 2.8 - 5.1 mg/dL 09/29/2024 1:00 AM [facility] Blood BLOOD SPECIMEN / Unknown Venipuncture / Unknown 09/29/2024 12:18 AM HEATING AND COOLING SYSTEMS ENGINEER 09/29/2024 12:32 AM HEATING AND COOLING SYSTEMS ENGINEER Gibran Grande PA-C LAB - CHEMISTRY O RDERABLES [address] [address], [facility] [phone] * MAGNESIUM BLOOD (09/29/2024 12:18 AM HEATING AND COOLING SYSTEMS ENGINEER) Pathologist [facility] Magnesium 2.4 1.6 - 2.6 mg/dL 09/29/2024 1:00 AM [facility] Blood BLOOD SPECIMEN / Unknown Venipuncture / Unknown 09/29/2024 12:18 AM HEATING AND COOLING SYSTEMS ENGINEER 09/29/2024 12:32 AM HEATING AND COOLING SYSTEMS ENGINEER Gibran Grande PA-C LAB - CHEMISTRY O RDERABLES Performing Organization Address City/[facility]/ZIP Co de Phone Number [address] [address], [facility] [phone] * (ABNORMAL) CBC W/O DIFFERENTIAL (09/29/2024 12:18 AM HEATING AND COOLING SYSTEMS ENGINEER) [facility] WBC 21.0(H) 4.0 - 10.7 x10E9/L 09/29/2024 [...] Unknown Venipuncture / Unknown 09/29/2024 12:18 AM HEATING AND COOLING SYSTEMS ENGINEER 09/29/2024 12:32 AM HEATING AND COOLING SYSTEMS ENGINEER Gibran Grande PA-C LAB - HEMATOLOGY ORDERABLES Performing Organization Address City/[facility]/ZIP Co de Phone Number [address] [address] [phone] * (ABNORMAL) CALCIUM IONIZED WHOLE BLOOD (09/29/2024 12:18 AM HEATING AND COOLING SYSTEMS ENGINEER) Calcium Ionized 1.15 mmol/L 09/29/2024 12:47 AM [facility] pH 7.40 7.35 - 7.45 pH 09/29/2024 12:47 AM [facility] Ionized Calcium pH Adjusted 1.15(L) 1.19 - 1.34 mmol/L 09/29/2024 12:47 AM [facility] Blood BLOOD SPECIMEN / Unknown Venipuncture / Unknown 09/29/2024 12:18 AM HEATING AND COOLING SYSTEMS ENGINEER 09/29/2024 12:28 AM HEATING AND COOLING SYSTEMS ENGINEER Gibran Grande PA-C LAB - CHEMISTRY O RDERABLES [address] [address], [facility] [phone] * (ABNORMAL) BASIC METABOLIC PANEL (CALCIUM TOTAL) (09/29/2024 12:18 AM HEATING AND COOLING SYSTEMS ENGINEER) BUN 24 7 - 26 mg/dL 09/29/2024 [...] Unknown Venipuncture / Unknown 09/29/2024 12:18 AM HEATING AND COOLING SYSTEMS ENGINEER 09/29/2024 12:32 AM [facility] Gibran Grande PA-C LAB - CHEMISTRY O RDERABLES [facility] [address] [place] [address], [facility] [phone] * XR Chest 1Vw Portable (09/28/2024 5:46 AM HEATING AND COOLING SYSTEMS ENGINEER) Anatomical Region Laterality Modality Chest Digital Radiogra phy 09/28/2024 8:58 AM HEATING AND COOLING SYSTEMS ENGINEER Narrative 09/28/2024 3:45 PM HEATING AND COOLING SYSTEMS ENGINEER PROCEDURE: ??XR CHEST 1VW PORTABLE, DATE/TIME OF EXAM: ??09/28/2024 5:46 AM, LOCATION ??[facility] INDICATION: Z97.8: Endotracheal tube present ADDITIONAL [...] obscured. Report dictated by Alex Huizar MD, (Metal Crafts Teacher). IMaryanne MD have personally reviewed and interpreted this examination/study. > Interpreting Provider: Maryanne Horner MD on 09/28/2024 3:45 PM Procedure Note Maryanne Horner MD - 09/28/2024 PROCEDURE: XR CHEST 1VW PORTABLE, DATE/TIME OF EXAM: 09/28/2024 5:46AM, LOCATION [facility] INDICATION: Z97.8: Endotracheal tube present ADDITIONAL [...] obscured. Report dictated by Alex Huizar MD, (Metal Crafts Teacher). I, Maryanne Horner MD have personally reviewed and interpreted this examination/study. > Interpreting Provider: Maryanne Horner MD on 09/28/2024 3:45 PM Kendal Demarco MD DIAGNOSTIC IMAGING O RDERABLES * PHOSPHORUS BLOOD (09/27/2024 11:35 PM HEATING AND COOLING SYSTEMS ENGINEER) Phosphorus 3.8 2.8 - 5.1 mg/dL 09/28/2024 12:13 AM HEATING AND COOLING SYSTEMS ENGINEER [facility] Blood BLOOD SPECIMEN / Unknown Venipuncture / Unknown 09/27/2024 11:35 PM HEATING AND COOLING SYSTEMS ENGINEER 09/27/2024 11:48 PM HEATING AND COOLING SYSTEMS ENGINEER Gibran Grande PA-C LAB - CHEMISTRY O RDERABLES Performing Organization Address City/[facility]/ZIP Co de Phone Number [address] [address], [facility] [phone] * MAGNESIUM BLOOD (09/27/2024 11:35 PM HEATING AND COOLING SYSTEMS ENGINEER) Magnesium 2.2 1.6 - 2.6 mg/dL 09/28/2024 12:13 AM HEATING AND COOLING SYSTEMS ENGINEER [facility] Blood BLOOD SPECIMEN / Unknown Venipuncture / Unknown 09/27/2024 11:35 PM HEATING AND COOLING SYSTEMS ENGINEER 09/27/2024 11:48 PM HEATING AND COOLING SYSTEMS ENGINEER Gibran Grande PA-C LAB - CHEMISTRY O RDERABLES [address] [address], [facility] [phone] * (ABNORMAL) CBC W/O DIFFERENTIAL (09/27/2024 11:35 PM HEATING AND COOLING SYSTEMS ENGINEER) WBC 22.2(H) 4.0 - 10.7 x10E9/L 09/28/2024 [...] Unknown Venipuncture / Unknown 09/27/2024 11:35 PM HEATING AND COOLING SYSTEMS ENGINEER 09/27/2024 11:48 PM HEATING AND COOLING SYSTEMS ENGINEER Gibran Grande PA-C LAB - HEMATOLOGY ORDERABLES Performing Organization Address [facility] Co de Phone Number [address] [address] [phone] * (ABNORMAL) CALCIUM IONIZED WHOLE BLOOD (09/27/2024 11:35 PM HEATING AND COOLING SYSTEMS ENGINEER) Calcium Ionized 1.17 mmol/L 09/27/2024 11:50 PM [facility] pH 7.42 7.35 - 7.45 pH 09/27/2024 11:50 PM [facility] Ionized Calcium pH Adjusted 1.18(L) 1.19 - 1.34 mmol/L 09/27/2024 11:50 PM [facility] Blood BLOOD SPECIMEN / Unknown Venipuncture / Unknown 09/27/2024 11:35 PM HEATING AND COOLING SYSTEMS ENGINEER 09/27/2024 11:47 PM HEATING AND COOLING SYSTEMS ENGINEER Gibran Grande PA-C LAB - CHEMISTRY O RDERABLES [facility] [address] [place] [address], [facility] [phone] * (ABNORMAL) BASIC METABOLIC PANEL (CALCIUM TOTAL) (09/27/2024 11:35 PM HEATING AND COOLING SYSTEMS ENGINEER) BUN 22 7 - 26 mg/dL 09/28/2024 [...] >=90 mL/min/1.7 3 m2 09/28/2024 12:13 AM [facility] Blood BLOOD SPECIMEN / Unknown Venipuncture / Unknown 09/27/2024 11:35 PM HEATING AND COOLING SYSTEMS ENGINEER 09/27/2024 11:48 PM HEATING AND COOLING SYSTEMS ENGINEER Gibran Grande PA-C LAB - CHEMISTRY O RDERABLES Performing Organization Address City/[facility]/ZIP Co de Phone Number [facility] [address] [place] [address], [facility] [phone] * EKG 12-LEAD (09/27/2024 8:49 AM HEATING AND COOLING SYSTEMS ENGINEER) Ventricular Rate 148 BPM [facility] MUSE Atrial Rate 296 BPM [facility] MUSE QRS Duration ms 78 ms [facility] MUSE Q-T Interval ms 334 ms [facility] MUSE QTC Calculation (Bezet) 524 ms [facility] MUSE Calculated P [place] 103 degrees [facility] MUSE Calculated R [place] -33 degrees [facility] MUSE Calculated T [place] 118 degrees [facility] MUSE Interpretation EKG ATRIAL FLUTTER WITH 2:1 A-V CONDUCTION LEFT AXIS DEVIATION NONSPECIFIC ST AND T WAVE ABNORMALITY ABNORMAL ECG WHEN COMPARED WITH ECG OF 25-SEP-2024 16:26, atrial flutter has replaced sinus rhythm Confirmed by MAGALY CHE DO ([id number]) on 09/28/2024 3:21:12 PM [facility] MUSE 09/27/2024 8:49 AM HEATING AND COOLING SYSTEMS ENGINEER 09/28/2024 3:21 PM HEATING AND COOLING SYSTEMS ENGINEER Kendal Demarco MD ECG ORDERABLES Performing Organization Address [facility] Co de Phone Number [facility] MUSE * (ABNORMAL) BLOOD GASES ART + COOX PANEL (09/27/2024 6:21 AM HEATING AND COOLING SYSTEMS ENGINEER) pH Arterial 7.45 7.35 - 7.45 pH 09/27/2024 6:31 AM [facility] pO2 Arterial 73(L) 80 - 100 mmHg 09/27/2024 6:31 AM [facility] pCO2 Arterial 39 35 - 45 mmHg 6:31 AM [facility] HCO3 Arterial 27.1 [...] Arterial Puncture / Unknown 09/27/2024 6:21 AM HEATING AND COOLING SYSTEMS ENGINEER 09/27/2024 6:29 AM [facility] - 09/27/2024 6:31 AM [facility] Carboxyhemoglobin Normal Concentration: Non-smokers: 0-2%; Smokers: 0-9%; Toxic: >20% Kendal Demarco MD LAB - BLOOD GASES OR DERABLES [address] [address], [facility] [phone] * PHOSPHORUS BLOOD (09/27/2024 12:18 AM HEATING AND COOLING SYSTEMS ENGINEER) Phosphorus 2.9 2.8 - 5.1 mg/dL 09/27/2024 12:56 AM [facility] Blood BLOOD SPECIMEN / Unknown Venipuncture / Unknown 09/27/2024 12:18 AM HEATING AND COOLING SYSTEMS ENGINEER 09/27/2024 12:30 AM HEATING AND COOLING SYSTEMS ENGINEER Gibran Grande PA-C LAB - CHEMISTRY O RDERABLES [facility] [address] [place] [address], [facility] [phone] * MAGNESIUM BLOOD (09/27/2024 12:18 AM HEATING AND COOLING SYSTEMS ENGINEER) Magnesium 2.3 1.6 - 2.6 mg/dL 09/27/2024 12:56 AM [facility] Blood BLOOD SPECIMEN / Unknown Venipuncture / Unknown 09/27/2024 12:18 AM HEATING AND COOLING SYSTEMS ENGINEER 09/27/2024 12:30 AM HEATING AND COOLING SYSTEMS ENGINEER Gibran Grande PA-C LAB - CHEMISTRY O RDERABLES [facility] [address] [place] [address], [facility] [phone] * (ABNORMAL) CBC W/O DIFFERENTIAL (09/27/2024 12:18 AM HEATING AND COOLING SYSTEMS ENGINEER) WBC 24.4(H) 4.0 - 10.7 x10E9/L 09/27/2024 [...] Unknown Venipuncture / Unknown 09/27/2024 12:18 AM HEATING AND COOLING SYSTEMS ENGINEER 09/27/2024 12:30 AM HEATING AND COOLING SYSTEMS ENGINEER Gibran Grande PA-C LAB - HEMATOLOGY ORDERABLES Performing Organization Address City/[facility]/ZIP Co de Phone Number [address] [address], [employer] [phone] * (ABNORMAL) CALCIUM IONIZED WHOLE BLOOD (09/27/2024 12:18 AM HEATING AND COOLING SYSTEMS ENGINEER) Calcium Ionized 1.15 mmol/L 09/27/2024 12:28 AM [facility] pH 7.44 7.35 - 7.45 pH 09/27/2024 12:28 AM [facility] Ionized Calcium pH Adjusted 1.17(L) 1.19 - 1.34 mmol/L 09/27/2024 12:28 AM [facility] Blood BLOOD SPECIMEN / Unknown Venipuncture / Unknown 09/27/2024 12:18 AM HE[employer] CO[employer]ING SYSTEMS ENGINEER 09/27/2024 12:23 AM HEATING AND COOLING SYSTEMS ENGINEER Gibran Grande PA-C LAB - CHEMISTRY O RDERABLES [address] [address], [employer] [phone] * (ABNORMAL) BASIC METABOLIC PANEL (CALCIUM TOTAL) (09/27/2024 12:18 AM HEATING AND COOLING SYSTEMS ENGINEER) BUN 24 7 - 26 mg/dL 09/27/2024 12:56 AM [facility] Creatinine 0.56(L) 0.71 - 1.16 mg/dL 09/27/2024 12:56 AM HEATING AND COOLING SYSTEMS ENGINEER [facility] Sodium 145 136 - 145 mmol/L [...] Unknown Venipuncture / Unknown 09/27/2024 12:18 AM HEATING AND COOLING SYSTEMS ENGINEER 09/27/2024 12:30 AM HEATING AND COOLING SYSTEMS ENGINEER Gibran Grande PA-C LAB - CHEMISTRY O RDERABLES [facility] [address] [place] [address], [facility] [phone] * XR Chest 1Vw Portable (09/26/2024 10:29 PM HEATING AND COOLING SYSTEMS ENGINEER) Anatomical Region Laterality Modality Chest Digital Radiogra phy 09/27/2024 7:23 AM HEATING AND COOLING SYSTEMS ENGINEER Narrative 09/28/2024 11:36 AM HEATING AND COOLING SYSTEMS ENGINEER PROCEDURE: ??XR CHEST 1VW PORTABLE DATE/TIME OF [...] intact. Report dictated by Manjula Bruno MD, (Metal Crafts Teacher). Maryanne Casey MD have personally reviewed and [...] intact. Report dictated by Manjula Bruno MD, (Metal Crafts Teacher). Maryanne Casey MD have personally reviewed and interpreted this examination/study. > Interpreting Provider: Maryanne Horner MD on 09/28/2024 11:36 AM Kendal Demarco MD DIAGNOSTIC IMAGING O RDERABLES * (ABNORMAL) BLOOD GASES ART + COOX PANEL (09/26/2024 10:25 PM [facility]) pH [...] Arterial Puncture / Unknown 09/26/2024 10:25 PM [facility] 09/26/2024 10:29 PM [facility] - 09/26/2024 10:40 PM [facility] Carboxyhemoglobin Normal Concentration: Non-smokers: 0-2%; Smokers: 0-9%; Toxic: >20% Kendal Demarco MD LAB - BLOOD GASES OR DERABLES [facility] [address] [place] [address], [facility] [phone] * XR Chest 1Vw Portable (09/26/2024 5:08 PM HEATING AND COOLING SYSTEMS ENGINEER) Anatomical Region Laterality Modality Chest Digital Radiogra phy 09/27/2024 7:12 AM HEATING AND COOLING SYSTEMS ENGINEER Narrative 09/27/2024 2:19 PM HEATING AND COOLING SYSTEMS ENGINEER PROCEDURE: ??XR CHEST 1VW PORTABLE, DATE/TIME OF EXAM: ??09/26/2024 5:08 PM, LOCATION ??[facility] INDICATION: T14.90XA: Trauma ADDITIONAL CLINICAL INFORMATION: Ordering Provider Reason For Exam: ??increasing oxygen requirements COMPARISON: Chest x-ray 09/15/2024 FINDINGS/IMPRESSION: Removal of the endotracheal tube. Enteric tube courses below the diaphragm and out of the [id number]. Left-sided rib plating is present. Overlying surgical skin avila of a left-sided thoracotomy. Unchanged airspace opacities. Small left pleural effusion. No enlarged pneumothorax. The cardiomediastinal silhouette is partially obscured. > Dictated by Valerio Mckay DO (Metal Crafts Teacher), 09/27/2024 7:15 AM. IMaryanne MD have personally reviewed and interpreted this examination/study. > Interpreting Provider: Maryanne Horner MD on 09/27/2024 2:19 PM Procedure Note Maryanne Horner MD - 09/27/2024 PROCEDURE: XR CHEST 1VW PORTABLE, DATE/TIME OF EXAM: 09/26/2024 5:08PM, LOCATION [facility] INDICATION: T14.90XA: Trauma ADDITIONAL CLINICAL INFORMATION: Ordering Provider Reason For Exam: increasing oxygen requirements COMPARISON: Chest x-ray 09/15/2024 FINDINGS/IMPRESSION: Removal of the endotracheal tube. Enteric tube courses below thediaphragm and out of the [id number]. Left-sided rib plating is present.Overlying surgical skin avila of a left-sided thoracotomy. Unchanged airspace opacities. Small left pleural effusion. No enlarged pneumothorax. The cardiomediastinal silhouette is partially obscured. > Dictated by Valerio Mckay DO (Metal Crafts Teacher), 09/27/2024 7:15AM. I, Maryanne Horner MD have personally reviewed and interpreted this examination/study. > Interpreting Provider: Maryanne Horner MD on 09/27/2024 2:19 PM Kendal Demarco MD DIAGNOSTIC IMAGING O RDERABLES * PHOSPHORUS BLOOD (09/26/2024 12:15 AM HEATING AND COOLING SYSTEMS ENGINEER) Phosphorus 3.2 2.8 - 5.1 mg/dL 09/26/2024 12:49 AM HEATING AND COOLING SYSTEMS ENGINEER [facility] Blood BLOOD SPECIMEN / Unknown Venipuncture / Unknown 09/26/2024 12:15 AM HEATING AND COOLING SYSTEMS ENGINEER 09/26/2024 12:21 AM HEATING AND COOLING SYSTEMS ENGINEER Gibran Grande PA-C LAB - CHEMISTRY O RDERABLES Performing Organization Address [facility]/ZIP Co de Phone Number [address] [address], [facility] [phone] * MAGNESIUM BLOOD (09/26/2024 12:15 AM HEATING AND COOLING SYSTEMS ENGINEER) Magnesium 2.3 1.6 - 2.6 mg/dL 09/26/2024 12:49 AM HEATING AND COOLING SYSTEMS ENGINEER [facility] Blood BLOOD SPECIMEN / Unknown Venipuncture / Unknown 09/26/2024 12:15 AM HEATING AND COOLING SYSTEMS ENGINEER 09/26/2024 12:21 AM HEATING AND COOLING SYSTEMS ENGINEER Gibran Grande PA-C LAB - CHEMISTRY O RDERABLES Performing Organization Address [facility]/ZIP Co de Phone Number [address] [address], [facility] [phone] * (ABNORMAL) CBC W/O DIFFERENTIAL (09/26/2024 12:15 AM HEATING AND COOLING SYSTEMS ENGINEER) WBC 17.4(H) 4.0 - 10.7 x10E9/L 09/26/2024 1:08 AM HEATING AND COOLING SYSTEMS ENGINEER [facility] RBC Count 2.77(L) 4.30 - [...] Unknown Venipuncture / Unknown 09/26/2024 12:15 AM HEATING AND COOLING SYSTEMS ENGINEER 09/26/2024 12:20 AM [facility] Gibran Grande PA-C LAB - HEMATOLOGY ORDERABLES Performing Organization Address City/State/[facility] Co de Phone Number [facility] [address] [place] [address] [phone] * CALCIUM IONIZED WHOLE BLOOD (09/26/2024 12:15 AM [facility]) Calcium Ionized 1.22 mmol/L 09/26/2024 12:26 AM [facility] pH 7.37 7.35 - 7.45 pH 09/26/2024 12:26 AM [facility] Ionized Calcium pH Adjusted 1.21 1.19 - 1.34 mmol/L 09/26/2024 12:26 AM [facility] Blood BLOOD SPECIMEN / Unknown Venipuncture / Unknown 09/26/2024 12:15 AM HEATING AND COOLING SYSTEMS ENGINEER 09/26/2024 12:18 AM HEATING AND COOLING SYSTEMS ENGINEER Gibran Murillo Harjinder KHAN LAB - CHEMISTRY O RDERABLES [facility] [address] [place] [address], [facility] [phone] * (ABNORMAL) BASIC METABOLIC PANEL (CALCIUM TOTAL) (09/26/2024 12:15 AM HEATING AND COOLING SYSTEMS ENGINEER) BUN 18 7 - 26 mg/dL 09/26/2024 [...] >=90 mL/min/1.7 3 m2 09/26/2024 12:49 AM [facility] Blood BLOOD SPECIMEN / Unknown Venipuncture / Unknown 09/26/2024 12:15 AM HEATING AND COOLING SYSTEMS ENGINEER 09/26/2024 12:21 AM HEATING AND COOLING SYSTEMS ENGINEER Gibran Grande PA-C LAB - CHEMISTRY O RDERABLES Performing Organization Address City/[facility]/ZIP Co de Phone Number [facility] [address] [place] [address], [place] [phone] * EKG 12-LEAD (09/25/2024 4:26 PM HEATING AND COOLING SYSTEMS ENGINEER) [facility] Ventricular Rate 99 BPM [facility] MUSE Atrial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 [facility] Blood BLOOD SPECIMEN / Unknown Venipuncture / Unknown 09/17/2024 12:17 AM HEATING AND COOLING SYSTEMS ENGINEER 09/17/2024 12:20 AM HEATING AND COOLING SYSTEMS ENGINEER Gibran Grande PA-C LAB - CHEMISTRY O RDERABLES [facility] [address] [place] [address], [facility] [phone] * (ABNORMAL) BLOOD GASES ART + COOX PANEL (09/17/2024 12:17 AM HEATING AND COOLING SYSTEMS ENGINEER) pH Arterial 7.39 7.35 - 7.45 pH 09/17/2024 12:41 AM [facility] pO2 Arterial 94 80 - 100 mmHg 09/17/2024 12:41 AM [facility] pCO2 Arterial 38 35 [...] [facility] 09/17/2024 12:20 AM [facility] - 09/17/2024 12:41 AM [facility] Carboxyhemoglobin Normal Concentration: Non-smokers: 0-2%; Smokers: 0-9%; Toxic: >20% Gibran Grande PA-C LAB - BLOOD GASES ORDERABLES [facility] [address] [place] [address], [facility] [phone] * (ABNORMAL) BASIC METABOLIC PANEL (CALCIUM TOTAL) [...] Unknown Venipuncture / Unknown 09/17/2024 12:17 AM HEATING AND COOLING SYSTEMS ENGINEER 09/17/2024 12:24 AM [facility] Gibran Grande PA-C LAB - CHEMISTRY O RDERABLES Performing Organization Address City/State/[facility] Co de Phone Number [facility] [address] [place] [address], [facility] [phone] * PREPARE (CROSSMATCH) RBC UNIT(S), 2 Units (09/16/2024 1:49 PM HEATING AND COOLING SYSTEMS ENGINEER) Unit Description AS1 LR PRBC [facility] Unit ABO A [facility] Unit Rh POS [facility] Product Number R02 [facility] B LOOD BANK LAB Unit Donor # [id number] [facility] Unit Status transfused [facility] BLO OD BANK LAB Product Code [id number] [facility] B[facility] OD [facility] Blood Type Barcode 6200 [facility] Expiration Date S BLOOD BANK LAB Unit Description AS1 LR PRBC [facility] BLOOD [facility] LAB Unit ABO A [facility] BLOOD [facility] Unit Rh POS [facility] BLOOD [facility] Product Number R02 [facility] B LOOD BANK LAB Unit Donor # [id number] [facility] BLOOD [facility] Unit Status released [facility] BLOO D BANK LAB Product Code [id number] [facility] BLO OD BANK LAB Blood Type Barcode 6200 [facility] B[facility]OD [facility] LAB Expiration Date S BLOOD BANK LAB Blood Bank BLOOD SPECIMEN / Unknown 09/14/2024 12:27 AM HEATING AND COOLING SYSTEMS ENGINEER Krzysztof Hunt DO LAB - BLOOD BANK O RDERABLES [facility] B[facility] LAB [address] [place] [address], [facility] [phone] * PREPARE (CROSSMATCH) RBC UNIT(S), 2 Units (09/16/2024 1:49 PM HEATING AND COOLING SYSTEMS ENGINEER) Unit Description AS1 LR PRBC [facility] BLOOD [facility]ANK LAB Unit ABO A [facility] BLOOD [facility] Unit Rh POS [facility] BLOOD [facility] LAB Product Number R02 [facility] B LOOD BANK LAB Unit Donor # [id number] [facility] BLOOD [facility] LAB Unit Status released [facility] BLOO D BANK LAB Product Code [id number] [facility] BLO OD BANK LAB Blood Type Barcode 6200 [facility] BLOOD [facility] LAB Expiration Date [facility] BLOOD [facility] Unit Description AS1 LR PRBC [facility] BLOOD [facility] LAB Unit ABO A [facility] BLOOD [facility] LAB Unit Rh POS [facility] BLOOD [facility] LAB Product Number R02 [facility] B LOOD [facility] Unit Donor # [id number] [facility]OD [facility] Unit Status released [facility] BLOO D BANK LAB Product [facility] [id number] [facility] BLO OD BANK LAB Blood Type Barcode 6200 [facility] Expiration Date [facility]OD [facility] Blood Bank BLOOD SPECIMEN / Unknown 09/14/2024 12:27 AM [employer] ENGINEER Triston aMldonado Asst LAB - BLOOD BANK ORDERABLES [facility]LOOD [facility] [address] [place] [id number] [phone] * XR Chest 1Vw Portable (09/16/2024 1:47 PM [employer] ENGINEER) Anatomical Region Laterality Modality Chest Digital Radiogra phy 09/16/2024 2:59 PM [employer] ENGINEER Narrative 09/16/2024 6:26 PM [employer] ENGINEER PROCEDURE: ??XR CHEST 1VW PORTABLE DATE/TIME OF [...] emphysema. Report dictated by Manjula Bruno MD, ([employer] Teacher). IOlivia MD have personally reviewed and interpreted [...] emphysema. Report dictated by Manjula Bruno MD, (Metal Crafts Teacher). I, Olivia Polanco MD have personally reviewed and interpreted this examination/study. > Interpreting Provider: Olivia Polanco MD on 09/16/2024 6:26 PM Kendal Demarco MD DIAGNOSTIC IMAGING O RDERABLES * LACTIC ACID BLOOD (09/16/2024 12:35 PM HEATING AND COOLING SYSTEMS ENGINEER) Lactic Acid-Stat 0.9 <=2.0 mmol/L 09/16/2024 1:19 PM HEATING AND COOLING SYSTEMS ENGINEER [facility] Blood BLOOD SPECIMEN / Unknown Venipuncture / Unknown 09/16/2024 12:35 PM HEATING AND COOLING SYSTEMS ENGINEER 09/16/2024 12:48 PM HEATING AND COOLING SYSTEMS ENGINEER Kendal Demarco MD LAB - CHEMISTRY YUAN JI [facility] [address] [place] [address], [facility] [phone] * (ABNORMAL) CALCIUM IONIZED WHOLE BLOOD (09/16/2024 12:35 PM HEATING AND COOLING SYSTEMS ENGINEER) Calcium Ionized 1.27 mmol/L 09/16/2024 12:43 PM HEATING AND COOLING SYSTEMS ENGINEER [facility] pH 7.34(L) 7.35 - 7.45 pH 09/16/2024 12:43 PM HEATING AND COOLING SYSTEMS ENGINEER [facility] Ionized Calcium pH Adjusted 1.24 1.19 - 1.34 mmol/L 09/16/2024 12:43 PM HEATING AND COOLING SYSTEMS ENGINEER [facility] Blood BLOOD SPECIMEN / Unknown Venipuncture / Unknown 09/16/2024 12:35 PM HEATING AND COOLING SYSTEMS ENGINEER 09/16/2024 12:40 PM HEATING AND COOLING SYSTEMS ENGINEER Gibran Grande PA-C LAB - CHEMISTRY O RINA [address] [address], [place] [phone] * PHOSPHORUS BLOOD (09/16/2024 12:35 PM HEATING AND COOLING SYSTEMS ENGINEER) Phosphorus 4.0 2.8 - 5.1 mg/dL 09/16/2024 1:21 PM HEATING AND COOLING SYSTEMS ENGINEER [facility] Blood BLOOD SPECIMEN / Unknown Venipuncture / Unknown 09/16/2024 12:35 PM HEATING AND COOLING SYSTEMS ENGINEER 09/16/2024 12:48 PM HEATING AND COOLING SYSTEMS ENGINEER Gibran Grande PA-C LAB - CHEMISTRY O RINA [address] [address], [facility] [phone] * MAGNESIUM BLOOD (09/16/2024 12:35 PM HEATING AND COOLING SYSTEMS ENGINEER) Magnesium 1.9 1.6 - 2.6 mg/dL 09/16/2024 1:18 PM HEATING AND COOLING SYSTEMS ENGINEER [facility] Blood BLOOD SPECIMEN / Unknown Venipuncture / Unknown 09/16/2024 12:35 PM HEATING AND COOLING SYSTEMS ENGINEER 09/16/2024 12:48 PM HEATING AND COOLING SYSTEMS ENGINEER Gibran Grande PA-C LAB - CHEMISTRY O RDERABLES Performing Organization Address City/[facility] Co de Phone Number [facility] [address] [place] [address], [facility] [phone] * (ABNORMAL) CBC W/O DIFFERENTIAL (09/16/2024 12:35 PM HEATING AND COOLING SYSTEMS ENGINEER) WBC 10.7 4.0 - 10.7 x10E9/L 09/16/2024 [...] Unknown Venipuncture / Unknown 09/16/2024 12:35 PM HEATING AND COOLING SYSTEMS ENGINEER 09/16/2024 12:48 PM HEATING AND COOLING SYSTEMS ENGINEER Gibran Grande PA-C LAB - HEMATOLOGY ORDERABLES [facility] [address] [place] [address], [facility] [phone] * (ABNORMAL) BLOOD GASES ART + COOX PANEL (09/16/2024 12:35 PM HEATING AND COOLING SYSTEMS ENGINEER) pH Arterial 7.34(L) 7.35 - 7.45 pH [...] Arterial Puncture / Unknown 09/16/2024 12:35 PM HEATING AND COOLING SYSTEMS ENGINEER 09/16/2024 12:40 PM [facility] - 09/16/2024 12:43 PM [facility] Carboxyhemoglobin Normal Concentration: Non-smokers: 0-2%; Smokers: 0-9%; Toxic: >20% Gibran Grande PA-C LAB - BLOOD GASES ORDERABLES Performing Organization Address [facility] Co de Phone Number [facility] [address] [place] [address], [facility] [phone] * (ABNORMAL) BASIC METABOLIC PANEL (CALCIUM TOTAL) (09/16/2024 12:35 PM HEATING AND COOLING SYSTEMS ENGINEER) BUN 14 7 - 26 mg/dL 09/16/2024 [...] Unknown Venipuncture / Unknown 09/16/2024 12:35 PM HEATING AND COOLING SYSTEMS ENGINEER 09/16/2024 12:48 PM HEATING AND COOLING SYSTEMS ENGINEER Gibran Grande PA-C LAB - CHEMISTRY O RDERABLES Performing Organization Address City/[facility]/ZIP Co de Phone Number [facility] [address] [place] [address], [facility] [phone] * TRANSFUSE RED BLOOD CELL LEUKOREDUCED UNIT(S) (09/16/2024 11:39 AM HEATING AND COOLING SYSTEMS ENGINEER) Triston Maldonado Asst NURSING - BLOOD PROD TRANSFUSION * (ABNORMAL) BLOOD GAS+COOX+LYTES+METAB ARTERIAL POCT (09/16/2024 11:02 AM HEATING AND COOLING SYSTEMS ENGINEER) pH Arterial 7.38 7.35 - 7.45 pH [...] POINT OF CARE ORDERABLES Performing Organization Address City/State/[facility] Co de Phone Number [address] [address] [phone] * (ABNORMAL) BLOOD GAS+COOX+LYTES+METAB ARTERIAL POCT (09/16/2024 [...] BLOOD SPECIMEN / Unknown 09/16/2024 9:29 AM [facility] 09/16/2024 9:30 AM HEATING AND COOLING SYSTEMS ENGINEER Kendal Demarco MD LAB - POINT OF CARE ORDERABLES [facility] [address] [place] [address], [facility] [phone] * (ABNORMAL) BLOOD GAS+COOX+LYTES+METAB ARTERIAL POCT (09/16/2024 8:12 AM HEATING AND COOLING SYSTEMS ENGINEER) pH Arterial 7.34(L) 7.35 - 7.45 pH [...] BLOOD SPECIMEN / Unknown 09/16/2024 8:12 AM HEATING AND COOLING SYSTEMS ENGINEER 09/16/2024 8:13 AM HEATING AND COOLING SYSTEMS ENGINEER Kendal Demarco MD LAB - POINT OF CARE ORDERABLES [address] [address], [place] [phone] * BLOOD GAS ART+LYTES+METAB+COOX POC NOTIF (09/16/2024 8:10 AM HEATING AND COOLING SYSTEMS ENGINEER) Comment Notification Label Only - See Separate Report 09/16/2024 9:30 [facility] Other MISCELLANEOUS SAMPLES / Unknown 09/16/2024 8:10 AM HEATING AND COOLING SYSTEMS ENGINEER 09/16/2024 8:11 AM HEATING AND COOLING SYSTEMS ENGINEER Kendal Demarco MD LAB - BLOOD GASES OR DERABLES [address] [address], [place] [phone] * LACTIC ACID BLOOD (09/16/2024 12:10 AM HEATING AND COOLING SYSTEMS ENGINEER) Lactic Acid-Stat 0.9 <=2.0 mmol/L 09/16/2024 1:00 AM HEATING AND COOLING SYSTEMS ENGINEER [facility] Blood BLOOD SPECIMEN / Unknown Venipuncture / Unknown 09/16/2024 12:10 AM HEATING AND COOLING SYSTEMS ENGINEER 09/16/2024 12:29 AM HEATING AND COOLING SYSTEMS ENGINEER Kendal Demarco MD LAB - CHEMISTRY YUAN JI Performing Organization Address City/[facility]/ZIP Co de Phone Number [facility] [address] [place] [address], [facility] [phone] * (ABNORMAL) CALCIUM IONIZED WHOLE BLOOD (09/16/2024 12:10 AM HEATING AND COOLING SYSTEMS ENGINEER) Calcium Ionized 1.16 mmol/L 09/16/2024 12:32 AM HEATING AND COOLING SYSTEMS ENGINEER [facility] pH 7.43 7.35 - 7.45 pH 09/16/2024 12:32 AM [facility] Ionized Calcium pH Adjusted 1.17(L) 1.19 - 1.34 mmol/L 09/16/2024 12:32 AM HEATING AND COOLING SYSTEMS ENGINEER [facility] Blood BLOOD SPECIMEN / Unknown Venipuncture / Unknown 09/16/2024 12:10 AM HEATING AND COOLING SYSTEMS ENGINEER 09/16/2024 12:26 AM HEATING AND COOLING SYSTEMS ENGINEER Gibran Grande PA-C LAB - CHEMISTRY O RDCAROLINA Performing Organization Address [facility] Co de Phone Number [facility] [address] [place] [address], [facility] [phone] * (ABNORMAL) PHOSPHORUS BLOOD (09/16/2024 12:10 AM HEATING AND COOLING SYSTEMS ENGINEER) Phosphorus 2.5(L) 2.8 - 5.1 mg/dL 09/16/2024 1:01 AM HEATING AND COOLING SYSTEMS ENGINEER [facility] Blood BLOOD SPECIMEN / Unknown Venipuncture / Unknown 09/16/2024 12:10 AM HEATING AND COOLING SYSTEMS ENGINEER 09/16/2024 12:31 AM HEATING AND COOLING SYSTEMS ENGINEER Gibran Grande PA-C LAB - CHEMISTRY O RDERAFRANCISCO [facility] [address] [place] [address], [facility] [phone] * MAGNESIUM BLOOD (09/16/2024 12:10 AM HEATING AND COOLING SYSTEMS ENGINEER) Pathologist [facility] Magnesium 2.0 1.6 - 2.6 mg/dL 09/16/2024 1:01 AM [facility] Blood BLOOD SPECIMEN / Unknown Venipuncture / Unknown 09/16/2024 12:10 AM HEATING AND COOLING SYSTEMS ENGINEER 09/16/2024 12:31 AM HEATING AND COOLING SYSTEMS ENGINEER Gibran Grande PA-C LAB - CHEMISTRY O RDERABLES [facility] [address] [place] [address], [facility] [phone] * (ABNORMAL) CBC W/O DIFFERENTIAL (09/16/2024 12:10 AM HEATING AND COOLING SYSTEMS ENGINEER) Pathologist [facility] WBC 12.1(H) [...] Unknown Venipuncture / Unknown 09/16/2024 12:10 AM HEATING AND COOLING SYSTEMS ENGINEER 09/16/2024 12:31 AM [facility] Gibran Grande PA-C LAB - HEMATOLOGY ORDERABLES Performing Organization Address City/[facility]/ZIP Co de Phone Number [facility] [address] [place] [address], [facility] [phone] * (ABNORMAL) BLOOD GASES ART + COOX [...] [facility] 09/16/2024 12:26 AM [facility] - 09/16/2024 12:36 AM [facility] Carboxyhemoglobin Normal Concentration: Non-smokers: 0-2%; Smokers: 0-9%; Toxic: >20% Gibran Grande PA-C LAB - BLOOD GASES ORDERABLES [facility] [address] [place] [address], [facility] [phone] * (ABNORMAL) BASIC METABOLIC PANEL (CALCIUM TOTAL) [...] >=90 mL/min/1.7 3 m2 09/16/2024 1:01 AM HEATING AND COOLING SYSTEMS ENGINEER [facility] Blood BLOOD SPECIMEN / Unknown Venipuncture / Unknown 09/16/2024 12:10 AM HEATING AND COOLING SYSTEMS ENGINEER 09/16/2024 12:31 AM HEATING AND COOLING SYSTEMS ENGINEER Gibran Grande PA-C LAB - CHEMISTRY O RDERABLES [facility] [address] [place] [address], [facility] [phone] * CT 3D Recon W Independent Wksn (09/15/2024 7:05 PM HEATING AND COOLING SYSTEMS ENGINEER) Anatomical Region Laterality Modality Computed Tomogra phy 09/15/2024 7:30 PM HEATING AND COOLING SYSTEMS ENGINEER Impressions 09/16/2024 12:07 AM HEATING AND COOLING SYSTEMS ENGINEER IMPRESSION: Three-dimensional rendering. Report dictated by Ovidio Myers MD I, Layo Adhikari MD have personally reviewed and interpreted this examination/study. > Interpreting Provider: Layo Adhikari MD on 09/16/2024 12:07 AM Narrative 09/16/2024 12:07 AM HEATING AND COOLING SYSTEMS ENGINEER PROCEDURE: ??CT 3D RECON W INDEPENDENT WKSN, DATE/TIME OF EXAM: ??09/15/2024 7:05 PM, LOCATION ??[facility] INDICATION: S22.43XA: Multiple fractures of ribs, [...] WKSN, DATE/TIME OF EXAM:09/15/2024 7:05 PM, LOCATION [facility] INDICATION: S22.43XA: Multiple fractures of ribs, [...] ART + COOX PANEL (09/15/2024 1:55 PM HEATING AND COOLING SYSTEMS ENGINEER) pH Arterial 7.36 7.35 - 7.45 pH 09/15/2024 2:15 PM [facility] pO2 Arterial 94 80 - 100 mmHg 09/15/2024 2:15 PM [facility] pCO2 Arterial 46(H) 35 - 45 mmHg 2:15 PM [facility] HCO3 Arterial 26.0 20.0 - 30.0 mmol/L 09/15/2024 2:15 PM [facility] BE Arterial 0.3 -2.0 - 2.0 mmol/L 09/15/2024 2:15 PM [facility] Oxyhemoglobin Arterial 97.6 % 09/15/2024 2:15 PM [facility] Dexoyhemoglobin (HHB) % <1.0 % 09/15/2024 2:15 PM [facility] Methemoglobin <0.8 0.0 - 2.0 % 09/15/2024 2:15 PM [facility] Carboxyhemoglobin 2.1(H) 0.0 - 2.0 % 2023 2:15 PM [facility] O2 Content Arterial 13.3 Interpret within clinical context ml/dL 09/15/2024 2:15 PM [facility] Hemoglobin by COOX 9.6(L) 12.0 - 17.6 g/dL 09/15/2024 2:15 PM HEATING AND COOLING SYSTEMS ENGINEER [facility] O2 Saturation Arterial 100 90 - 100 % 09/15/2024 2:15 PM HEATING AND COOLING SYSTEMS ENGINEER [facility] FI O2 Arterial 70.0 % 09/15/2024 2:15 PM HEATING AND COOLING SYSTEMS ENGINEER [facility] Blood, arterial ARTERIAL BLOOD SPECIMEN / Unknown Arterial Puncture / Unknown 09/15/2024 1:55 PM HEATING AND COOLING SYSTEMS ENGINEER 09/15/2024 2:11 PM HEATING AND COOLING SYSTEMS ENGINEER Narrative [facility] - 09/15/2024 2:15 PM HEATING AND COOLING SYSTEMS ENGINEER Carboxyhemoglobin Normal Concentration: Non-smokers: 0-2%; Smokers: 0-9%; Toxic: >20% Kendal Demarco MD LAB - BLOOD GASES OR DERABLES Performing Organization Address City/State/[facility] Co de Phone Number [facility] [address] [place] [address], [facility] [phone] * XR Chest 1Vw Portable (09/15/2024 1:48 PM HEATING AND COOLING SYSTEMS ENGINEER) Anatomical Region Laterality Modality Chest Digital Radiogra phy 09/15/2024 2:22 PM HEATING AND COOLING SYSTEMS ENGINEER Narrative 09/15/2024 4:01 PM HEATING AND COOLING SYSTEMS ENGINEER PROCEDURE: ??XR CHEST 1VW PORTABLE DATE/TIME OF [...] redemonstrated Report dictated by Manjula Bruno MD, (Metal Crafts Teacher). Olivia Casey MD have personally reviewed and [...] redemonstrated Report dictated by Manjula Bruno MD, (Metal Crafts Teacher). Olivia Casey MD have personally reviewed and interpreted this examination/study. > Interpreting Provider: Olivia Polanco MD on 09/15/2024 4:01 PM Kendal Demarco MD DIAGNOSTIC IMAGING O RDERABLES * LACTIC ACID BLOOD (09/15/2024 12:23 PM HEATING AND COOLING SYSTEMS ENGINEER) Lactic Acid-Stat 1.1 <=2.0 mmol/L 09/15/2024 1:24 PM HEATING AND COOLING SYSTEMS ENGINEER [facility] Blood BLOOD SPECIMEN / Unknown Venipuncture / Unknown 09/15/2024 12:23 PM HEATING AND COOLING SYSTEMS ENGINEER 09/15/2024 12:55 PM HEATING AND COOLING SYSTEMS ENGINEER Kendal Demarco MD LAB - CHEMISTRY YUAN JI [address] [address], [place] [phone] * (ABNORMAL) CALCIUM IONIZED WHOLE BLOOD (09/15/2024 12:23 PM HEATING AND COOLING SYSTEMS ENGINEER) Calcium Ionized 1.22 mmol/L 09/15/2024 12:54 PM HEATING AND COOLING SYSTEMS ENGINEER [facility] pH 7.28(L) 7.35 - 7.45 pH 09/15/2024 12:54 PM HEATING AND COOLING SYSTEMS ENGINEER [facility] Ionized Calcium pH Adjusted 1.16(L) 1.19 - 1.34 mmol/L 09/15/2024 12:54 PM HEATING AND COOLING SYSTEMS ENGINEER [facility] Blood BLOOD SPECIMEN / Unknown Venipuncture / Unknown 09/15/2024 12:23 PM HEATING AND COOLING SYSTEMS ENGINEER 09/15/2024 12:46 PM HEATING AND COOLING SYSTEMS ENGINEER Gibran Grande PA-C LAB - CHEMISTRY O RDCAROLINA Performing Organization Address City/[facility]/ZIP Co de Phone Number [address] [address], [place] [phone] * PHOSPHORUS BLOOD (09/15/2024 12:23 PM HEATING AND COOLING SYSTEMS ENGINEER) Phosphorus 3.7 2.8 - 5.1 mg/dL 09/15/2024 1:29 PM HEATING AND COOLING SYSTEMS ENGINEER [facility] Blood BLOOD SPECIMEN / Unknown Venipuncture / Unknown 09/15/2024 12:23 PM HEATING AND COOLING SYSTEMS ENGINEER 09/15/2024 12:56 PM HEATING AND COOLING SYSTEMS ENGINEER Gibran Grande PA-C LAB - CHEMISTRY O RDERABLES [address] [address], [place] [phone] * MAGNESIUM BLOOD (09/15/2024 12:23 PM HEATING AND COOLING SYSTEMS ENGINEER) Magnesium 2.1 1.6 - 2.6 mg/dL 09/15/2024 1:29 PM [facility] Blood BLOOD SPECIMEN / Unknown Venipuncture / Unknown 09/15/2024 12:23 PM HEATING AND COOLING SYSTEMS ENGINEER 09/15/2024 12:56 PM HEATING AND COOLING SYSTEMS ENGINEER Gibran Grande PA-C LAB - CHEMISTRY O RDERABLES [facility] [address] [place] [address], [facility] [phone] * (ABNORMAL) CBC W/O DIFFERENTIAL (09/15/2024 12:23 PM HEATING AND COOLING SYSTEMS ENGINEER) WBC 12.8(H) 4.0 - 10.7 x10E9/L 09/15/2024 [...] Unknown Venipuncture / Unknown 09/15/2024 12:23 PM HEATING AND COOLING SYSTEMS ENGINEER 09/15/2024 12:55 PM [facility] Gibran Murillo Harjinder KHAN LAB - HEMATOLOGY ORDERABLES [facility] [address] [place] [address], [facility] [phone] * (ABNORMAL) BLOOD GASES ART + COOX PANEL (09/15/2024 12:23 PM HEATING AND COOLING SYSTEMS ENGINEER) pH Arterial 7.30(L) 7.35 - 7.45 pH [...] Arterial Puncture / Unknown 09/15/2024 12:23 PM HEATING AND COOLING SYSTEMS ENGINEER 09/15/2024 12:46 PM HEATING AND COOLING SYSTEMS ENGINEER [facility] - 09/15/2024 12:54 PM HEATING AND COOLING SYSTEMS ENGINEER Carboxyhemoglobin Normal Concentration: Non-smokers: 0-2%; Smokers: 0-9%; Toxic: >20% Gibran Grande PA-C LAB - BLOOD GASES ORDERABLES [facility] [address] [place] [address], [facility] [phone] * (ABNORMAL) BASIC METABOLIC PANEL (CALCIUM TOTAL) (09/15/2024 12:23 PM HEATING AND COOLING SYSTEMS ENGINEER) BUN 16 7 - 26 mg/dL 09/15/2024 [...] 18 7 - 23 09/15/2024 1:29 PM [facility] Osmolality Calculated 294 275 - 295 mOsm/kg 09/15/2024 1:29 PM [facility] eGFR by CKD-EPI 86(L) >=90 mL/min/1.7 3 m2 09/15/2024 1:29 PM HEATING AND COOLING SYSTEMS ENGINEER [facility] Blood BLOOD SPECIMEN / Unknown Venipuncture / Unknown 09/15/2024 12:23 PM HEATING AND COOLING SYSTEMS ENGINEER 09/15/2024 12:56 PM HEATING AND COOLING SYSTEMS ENGINEER Gibran H Harjinder KHAN LAB - CHEMISTRY O RDERABLES [facility] [address] [place] [address], [facility] [phone] * XR Abdomen Kub Portable (09/15/2024 11:27 AM HEATING AND COOLING SYSTEMS ENGINEER) Anatomical Region Laterality Modality Abdomen Digital Radiogra phy 09/15/2024 11:3 1 AM HEATING AND COOLING SYSTEMS ENGINEER Impressions 09/15/2024 11:48 AM HEATING AND COOLING SYSTEMS ENGINEER IMPRESSION: No retained lap pads, needles, or [...] 09/15/2024 11:48 AM Narrative 09/15/2024 11:48 AM HEATING AND COOLING SYSTEMS ENGINEER PROCEDURE: ??XR ABDOMEN KUB PORTABLE DATE/TIME OF [...] COLOR FLOW AND DOPPLER (09/15/2024 9:32 AM HEATING AND COOLING SYSTEMS ENGINEER) Myocardial strain charge 2 unitless SSM CV FUJI PACS LVOT diam 1.944 cm SSM CV FUJ I PACS LVPWd 0.637 cm SSM CV FUJ I PACS Ascending aorta 3.465 cm SSM CV FUJI PACS Sinus of Valsalva 3.261 cm SSM CV FUJI PACS Anatomical Region Laterality Modality Ultrasound 09/15/2024 9:04 AM HEATING AND COOLING SYSTEMS ENGINEER Narrative 09/15/2024 10:21 AM HEATING AND COOLING SYSTEMS ENGINEER Summary ??* Limited study and technically very [...] 1940 Gender: ? Male Accession #: ? [id number] Ht: ? 70 in Wt: ? 187 lb BSA: ? 2.06 m2 HR: ? 100 bpm BP: ? 122 / ? 60 mmHg Heart Rhythm: ? Tachycardia Exam Date: ? 09/15/2024 9:04 AM Patient Status: ? I/P Study Site: ? [facility] Primary Location: ? [facility] EStudy Info Technical Quality: ? Technically [...] Kendal Demarco Attending Physician: ? Kendal Demarco Metal Tank Builder: ? Oscar Dowd Left Ventricle ??The left [...] 9:04 AM Patient Status: I/P Study Site: [facility] Primary Location: [facility] EStudy Info Technical Quality: Technically Difficult [...] Provider: Kendal Demarco Attending Physician: Kendal Demarco Metal Tank Builder: Oscar Nile Left Ventricle The left ventricular is only [...] (ABNORMAL) TROPONIN-I HIGH SENSITIVE (09/15/2024 5:54 AM HEATING AND COOLING SYSTEMS ENGINEER) Troponin I High Sensitive 475(HH) <=35 ng/L 09/15/2024 6:46 AM HEATING AND COOLING SYSTEMS ENGINEER [facility] Blood BLOOD SPECIMEN / Unknown Venipuncture / Unknown 09/15/2024 5:54 AM HEATING AND COOLING SYSTEMS ENGINEER 09/15/2024 6:10 AM HEATING AND COOLING SYSTEMS ENGINEER Kendal Demarco MD LAB - CHEMISTRY YUAN JI Performing Organization Address City/[facility]/ZIP Co de Phone Number [address] [address], [facility] [phone] * (ABNORMAL) TROPONIN-I HIGH SENSITIVE REFLEX 1HOUR (09/15/2024 3:18 AM HEATING AND COOLING SYSTEMS ENGINEER) Troponin I High Sensitive 474(HH) <=35 ng/L 09/15/2024 4:17 AM HEATING AND COOLING SYSTEMS ENGINEER [facility] Delta Troponin I HS <0 <6 ng/L 09/15/2024 4:17 AM HEATING AND COOLING SYSTEMS ENGINEER [facility] Blood BLOOD SPECIMEN / Unknown Venipuncture / Unknown 09/15/2024 3:18 AM HEATING AND COOLING SYSTEMS ENGINEER 09/15/2024 3:28 AM HEATING AND COOLING SYSTEMS ENGINEER Kendal Demarco MD LAB - CHEMISTRY YUAN JI Performing Organization Address City/[facility]/ZIP Co de Phone Number [address] [address], [facility] [phone] * XR Chest 1Vw Portable (09/15/2024 2:50 AM HEATING AND COOLING SYSTEMS ENGINEER) Anatomical Region Laterality Modality Chest Digital Radiogra phy 09/15/2024 8:52 AM HEATING AND COOLING SYSTEMS ENGINEER Narrative 09/15/2024 3:07 PM HEATING AND COOLING SYSTEMS ENGINEER PROCEDURE: ??XR CHEST 1VW PORTABLE DATE/TIME OF [...] fracture. Report dictated by Manjula Bruno MD, (Metal Crafts Teacher). IOlivia MD have personally reviewed and interpreted [...] fracture. Report dictated by Manjula Bruno MD, (Metal Crafts Teacher). I, Olivia Polanco MD have personally reviewed and interpreted this examination/study. > Interpreting Provider: Olivia Polanco MD on 09/15/2024 3:07 PM Kendal Demarco MD DIAGNOSTIC IMAGING O RDERABLES * LACTIC ACID BLOOD (09/15/2024 2:04 AM HEATING AND COOLING SYSTEMS ENGINEER) Pathologist [facility] Lactic Acid-Stat 1.4 <=2.0 mmol/L 09/15/2024 2:48 AM HEATING AND COOLING SYSTEMS ENGINEER [facility] Blood BLOOD SPECIMEN / Unknown Venipuncture / Unknown 09/15/2024 2:04 AM HEATING AND COOLING SYSTEMS ENGINEER 09/15/2024 2:23 AM HEATING AND COOLING SYSTEMS ENGINEER Kendal Demarco MD LAB - [facility] Organization Address City/State/ZIP Co de Phone Number [facility] [address] [place] [phone], [facility] [phone] * (ABNORMAL) BLOOD GASES ART + COOX PANEL (09/15/2024 2:04 AM HEATING AND COOLING SYSTEMS ENGINEER) pH Arterial 7.48(H) 7.35 - 7.45 pH 09/15/2024 2:18 AM HEATING AND COOLING SYSTEMS ENGINEER [facility] pO2 Arterial 82 80 - 100 mmHg 09/15/2024 2:18 AM [facility] pCO2 Arterial 32(L) 35 - 45 [...] Arterial Puncture / Unknown 09/15/2024 2:04 AM [employer] ENGINEER 09/15/2024 2:16 AM [employer] ENGINEER Narrative [facility] - 09/15/2024 2:18 AM [facility] Carboxyhemoglobin Normal Concentration: Non-smokers: 0-2%; Smokers: 0-9%; Toxic: >20% Kendal Demarco MD LAB - BLOOD GASES OR DERABLES Performing Organization Address [facility]/State/[facility] Co de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
--- OUTSIDE RECORDS SUMMARY | 2024-11-07 05:01 | XMS_ITS | Encounter Summary ---
Author Organization [facility] Address [address] [place] [address] Phone Care Team Providers Care Craps Manager Name Role Phone Gigi Waters MD Primary Care Provider [phone] Encounter Details Date Type Department Care Team (Late st Contact Info) Description 02/03/2023 [facility] [address] [place] [address] Eitan Arciniega, DPM [address] [place] [address] Social History Tobacco Use Types Packs/Day Years Used Date Smoking Tobacco: Former Cigarettes 1 10 0 02/11/1957 - 02/11/1967 Smokeless Tobacco: Never Alcohol Use Standard Drinks/Week Comments Yes 6 (1 standard drink = 0.6 oz pur e alcohol) Sexually Active Control Partners Comments Not Currently Female Sex and Gender Information Value Date Recorded Sex Assigned at Not on file Legal Sex Male 9:20 PM CDT Gender Identity Not on file Sexual Orientation Not on file COVID-19 Exposure Response Date Recorded In the last 10 days, have yo u been in contact with someone who was confirmed or suspected to have Coronavirus/COVID-19? No / Unsure 01/24/2023 10:18 AM CDT documented as of this encounter Miscellaneous Notes * Telephone Encounter - Eva García - 02/03/2023 8:45 AM CDT Referral letter to patient documented in this encounter Plan of Treatment Upcoming Encounters Date Type Department Care Team (Late st Contact Info) Description 11/08/2024 2:00 PM SALES TEAM RECRUITER [facility] - [place] [address] [place] [address] Almaz Sin, POULTRY CUTTER, UNDER WATER ASSISTANT [address] [place] [address] documented as of this encounter Visit Diagnoses Not on filedocumented in this encounter Care Teams Craps Manager Relationship Specialty Start Date End Date Gigi Waters MD [address] [address] PCP - General Family Medicine 01/24/23 documented as of this encounter
--- OUTSIDE RECORDS SUMMARY | 2024-11-07 05:01 | XMS_ITS | Encounter Summary ---
Author Organization [facility] [employer] Care Team Providers Care Transition Of Care Specialist Name Role Phone Deena Beach APRN, CRIMINAL JUSTICE PROFESSOR Primary Care P edgar Encounter Details Date Type Department Care Team (Latest Contact Info) Description 12/26/2020 Travel Social History Tobacco Use Types Packs/Day [...] Exposure Response Date Recorded In the last month, have you been in contact with someone who was confirmed or suspected to have Coronavirus / COVID-19? No / Unsure 12/26/2020 11:37 AM COAL SAMPLE TESTER documented as of this encounter Plan of Treatment Upcoming Encounters Date Type Department Care Team (Late st Contact Info) Description 11/08/2024 2:00 PM COAL SAMPLE TESTER Office Visit [facility] - Primary Care - [place] [address] [place] [phone] lAmaz Sin APRN, CRIMINAL JUSTICE PROFESSOR [address] [place] [address] documented as of this encounter Visit Diagnoses Not on filedocumented in this encounter Care Teams Transition Of Care Specialist Relationship Specialty Start Date End Date Deena Beach, CONVENTIONAL MACHINIST, CRIMINAL JUSTICE PROFESSOR [address] [place] [address] PCP - General Advanced Practice Nurse 09/24/19 documented as of this encounter
--- OUTSIDE RECORDS SUMMARY | 2024-11-07 05:01 | XMS_ITS | Encounter Summary ---
Author Organization [facility] Address [address] [place] [address] Phone Care Team Providers Care Feather Shaper Name Role Phone Deena Beach APRN, CNP Primary Care P rovider Gigi Waters MD Primary Care Provider [phone] Reason for Visit * Reason Comments Medication Refill Encounter Details Date Type Department Care Team (Late st Contact Info) Description 05/01/2021 Refill [facility] Oncology Services [address] [place] [address] Ayan Estrada MD [address] [place] [address] Medication Refill Social History Tobacco Use Types Packs/Day Years [...] have Coronavirus / COVID-19? No / Unsure 04/25/2021 8:54 AM CDT documented as of this encounter Plan of Treatment Upcoming Encounters Date Type Department Care Team (Late st Contact Info) Description 11/08/2024 2:00 PM GIFT SHOP MANAGER Office Visit [facility] - Primary Care - [place] [address] [place] [address] Almaz Sin APRN, FOOD AND BEVERAGE ASSOCIATE [address] [place] [address] documented as of this encounter Visit Diagnoses Not on filedocumented in this encounter Additional Health Concerns Infection Onset Date Last Indicated Resolved Time COVID - 19 01/09/2024 01/09/2024 01/09/2024 8:39 AM CDT Respiratory Rule-Out 01/09/2024 01/09/2024 024 8:42 AM CDT documented as of this encounter Care Teams Feather Shaper Relationship Specialty Start Date End Date Deena Beach APRN, FOOD AND BEVERAGE ASSOCIATE [address] [place] [address] PCP - General Advanced Practice Nurse 09/24/19 Gigi Waters MD [address] [address] PCP - General Family Medicine 01/24/23 documented as of this encounter
--- OUTSIDE RECORDS SUMMARY | 2024-11-07 05:01 | XMS_ITS | Encounter Summary ---
Author Organization [facility] Address [address] [place] [address] Phone Care Team Providers Care Stave Block Roller Name Role Phone Gigi Waters MD Primary Care Provider [phone] Reason for Visit * Reason Comments Cough Encounter Details Date Type Department Care Team (Latest Contact Info) Description 01/09/2024 8:10 AM CDT Urgent Care Visit [facility] - [address] [phone] Nitish Patricia, [place] [id number] Bacterial upper respiratory infection (Primary Dx); Cough, unspecified type; Body aches; Fever, unspecified fever cause Discharge Disposition: Discharged to home or Selfcare Social History Tobacco Use Types Packs/Day Years Used Date Smoking Tobacco: Former Cigarettes 1 10 0 02/11/1957 - 02/11/1967 Smokeless Tobacco: Never Tobacco Cessation:Counseling Given: Not Answered Alcohol Use Standard Drinks/Week Comments Yes 6 (1 standard drink = 0.6 oz pur e alcohol) Occasionally Sexually Active Control Partners Comments Not Currently Female Sex and Gender Information Value Date Recorded Sex Assigned at Not on file Legal Sex Male 9:20 PM CDT Gender Identity Not on file Sexual Orientation Not on file documented as of this encounter Last Filed Vital Signs Vital Sign Reading Time Taken Comments Blood Pressure 126/54 01/09/2024 8:16 AM CDT Pulse 87 01/09/2024 8:16 AM CDT Temperature 38.2 ??C (100.8 ??F) 01/09/2024 8:16 AM C DT Respiratory Rate 16 01/09/2024 8:16 AM CDT Oxygen Saturation 93% 01/09/2024 8:16 AM CDT Inhaled Oxygen Concentration - - Weight 77.1 kg (170 lb) 01/09/2024 8:16 AM CDT Height - - Body Mass Index 23.06 01/24/2023 10:28 AM CDT documented in this encounter Patient Instructions * Patient Instructions* Nitish Patricia PAC - 01/09/2024 8:10 AM CDT COVID, flu and RSV are negative Rx for amoxicillin sent to pharmacy Patient given upper respiratory infection discharge instructions Tylenol and Motrin for fever See your primary care provider in 3-4 days if not better * Attachments The following attachments cannot be sent through Care Everywhere. * Upper Respiratory Infection Adult [id number] (Cymraes) documented in this encounter Progress Notes * Joe Luis CMA - 01/09/2024 8:10 AM CDT Floyd Sosa Jr. complains of Cough This is a new problem. Episode onset: 01/05/24. The problem has been gradually worsening. The problem occurs constantly. The cough is Productive of sputum. Nothing aggravates the symptoms. Treatmentstried: Dayquil, Nyquil, and cough drops. The treatment provided no relief. Today's Review of Systems Constitutional: Positive for malaise/fatigue. HENT: Negative. Eyes: Negative. Respiratory: Positive for cough. Cardiovascular: Negative. Gastrointestinal: Negative. Genitourinary: Negative. Musculoskeletal: Negative. Skin: Negative. Neurological: Negative. Endo/Heme/Allergies: Negative. Psychiatric/Behavioral: Negative. * Joe Luis CMA - 01/09/2024 8:10 AM CDT Pt was tested for SARS, Influenza A&B, RSV, and streptococcal pharyngitis. Pt tolerated well without incident. * Nitish Patricia, PAC - 01/09/2024 8:10 AM CDT HPI: Floyd Sosa Jr. is a 83 y.o. male [facility] for three-week history of upper respiratory symptoms that went away, he states for the past 4-5 days now he has had loss of appetite, chills, fatigue, congestion, runny nose, sore throat and cough with clear sputum, he has only used cough drops and taken NyQuil for this, he has been vaccinated for COVID, no known COVID exposure Patient Active Problem List Diagnosis Malignant neoplasm of sigmoid colon (HCC) S/P laparoscopic colectomy Encounter for screening for other viral diseases GERD (gastroesophageal reflux disease) Available past, family, surgical, and social history reviewed and updated in the chart. ROS: Review of Systems Constitutional: Positive for appetite change, chills and fatigue. Negative for fever. HENT: Positive for congestion, rhinorrhea and sore throat. Negative for ear pain. Eyes: Negative for pain and visual disturbance. Respiratory: Positive for cough. Negative for shortness of breath. Cardiovascular: Negative for chest pain and palpitations. Gastrointestinal: Negative for abdominal pain and vomiting. Genitourinary: Negative for dysuria and hematuria. Musculoskeletal: Negative for arthralgias and back pain. Skin: Negative for color change and rash. Neurological: Negative for seizures and syncope. All other systems reviewed and are negative. PE: BP 126/54 (BP Location: Right Arm, BP Position: Sitting, BP Cuff Size: Regular) Pulse 87 Temp (!) 100.8 ??F (38.2 ??C) (Oral) Resp 16 Wt 170 lb (77.1 kg) SpO2 93% BMI 23.06 kg/m?? Physical Exam Vitals and nursing note reviewed. Constitutional: General: He is not in acute distress. Appearance: He is well-developed. He is ill-appearing. Comments: Temperature 100.8??, O2 sat 93% HENT: Head: Normocephalic and atraumatic. Right Ear: Tympanic membrane, ear canal and external ear normal. Left Ear: Tympanic membrane, ear canal and external ear normal. Mouth/Throat: Mouth: Mucous membranes are moist. Pharynx: Posterior oropharyngeal erythema present. Eyes: Conjunctiva/sclera: Conjunctivae normal. Cardiovascular: Rate and Rhythm: Normal rate and regular rhythm. Pulses: Normal pulses. Heart sounds: No murmur heard. Pulmonary: Effort: Pulmonary effort is normal. No respiratory distress. Breath sounds: Normal breath sounds. Abdominal: Palpations: Abdomen is soft. Tenderness: There is no abdominal tenderness. Musculoskeletal: General: No swelling. Cervical back: Neck supple. Skin: General: Skin is warm and dry. Capillary Refill: Capillary refill takes less than 2 seconds. Neurological: Mental Status: He is alert and oriented to person, place, and time. Psychiatric: Mood and Affect: Mood normal. ASSESSMENT/PLAN: Diagnoses and all orders for this visit: Fever, unspecified fever cause - POC GROUP A STREP BY MOLECULAR - acetaminophen (TYLENOL) tablet 650 mg Cough, unspecified type - POC SARS-COV-2 BY MOLECULAR - POC INFLUENZA A AND B BY MOLECULAR - POC RESPIRATORY SYNCYTIAL VIRUS BY MOLECULAR Body aches - POC SARS-COV-2 BY MOLECULAR - POC INFLUENZA A AND B BY MOLECULAR - POC RESPIRATORY SYNCYTIAL VIRUS BY MOLECULAR There are no Patient Instructions on file for this visit. Chief complaint and all history documented by ancillary staff were reviewed and verified, with additions or corrections, as appropriate. documented in this encounter Plan of Treatment Upcoming Encounters Date Type Department Care Team (Late st Contact Info) Description 11/08/2024 2:00 PM CLOTHES IRONER Office Visit [facility] - Primary Care - [place] [address] [place] [phone] Almaz Sin, HEALTH AND WELLNESS COORDINATOR, WOOD MACHINE CARVER [address] [place] [address] documented as of this encounter Procedures Procedure Name Priority Date/Time Associated Diagnosis Comments POC INFLUENZA A AND B BY MOLECULAR Routine 01/09/2024 8:32 AM CDT Cough, unspecified type Body aches POC RESPIRATORY SYNCYTIAL VIRUS BY MOLECULAR Routine 01/09/2024 8:32 AM CDT Cough, unspecified type Body aches POC SARS-COV-2 BY MOLECULAR Routine 01/09/2024 8:29 AM CDT Cough, unspecified type Body aches POC GROUP A STREP BY MOLECULAR Routine 01/09/2024 8:27 AM CDT Fever, unspecified fever cause documented in this encounter Results * POC RESPIRATORY SYNCYTIAL VIRUS BY MOLECULAR (01/09/2024 8:32 AM CDT) RSV RNA BY MOLECULAR Negative Negative, Invalid PROCEDURE CONTROL Valid 01/09/2024 8:32 AM CDT [facility]3] POINT OF CARE TESTING (MANUAL ) Final Result * POC INFLUENZA A AND B BY MOLECULAR (01/09/2024 8:32 AM CDT) INFLUENZA A RNA Negative Negative, Invalid INFLUENZA B RNA Negative Negative, Invalid PROCEDURE CONTROL Valid 01/09/2024 8:32 AM CDT [facility]3] POINT OF CARE TESTING (MANUAL ) Final Result * POC SARS-COV-2 BY MOLECULAR (01/09/2024 8:29 AM CDT) SARSCOV2 Negative Negative, INVALID RESULT PROCEDURE CONTROL Valid 01/09/2024 8:29 AM CDT [facility]3] POINT OF CARE TESTING (MANUAL ) Final Result * POC GROUP A STREP BY MOLECULAR (01/09/2024 8:27 AM CDT) STREP A DNA Negative Negative, Invalid PROCEDURE CONTROL Valid 01/09/2024 8:27 AM CDT Nitish Patricia [facility] POINT OF CARE TESTING (MANUAL ) Final Result documented in this encounter Visit Diagnoses Diagnosis Bacterial upper respiratory infection- Primary Cough, unspecified type Body aches Generalized pain Fever, unspecified fever cause documented in this encounter Additional Health Concerns Infection Onset Date Last Indicated Resolved Time COVID - 19 01/09/2024 01/09/2024 01/09/2024 8:39 AM CDT Respiratory Rule-Out 01/09/2024 01/09/2024 024 8:42 AM CDT documented as of this encounter Care Teams Stave Block Roller Relationship Specialty Start Date End Date Gigi Waters MD [address] [place] [id number] PCP - General Family Medicine 01/24/23 documented as of this encounter
--- OUTSIDE RECORDS SUMMARY | 2024-11-07 05:01 | XMS_ITS | Encounter Summary ---
Author Organization [facility] Care Team Providers Care Employment Legal Assistant Name Role Phone Gigi Waters MD Primary Care Provider [phone] Encounter Details Date Type Department Care Team (Latest Contact Info) Description 01/09/2024 Travel Social History Tobacco Use Types Packs/Day [...] on file documented as of this encounter Plan of Treatment Upcoming Encounters Date Type Department Care Team (Late st Contact Info) Description 11/08/2024 2:00 PM FIELDWORK COORDINATOR Office Visit [facility] - Primary Care - [place] [address] [place] [phone] Almaz Sin, FRONT OFFICE ASSISTANT, MANAGING COGNITIVE ENGINEER [address] [place] [address] documented as of this encounter Visit Diagnoses Not on filedocumented in this encounter Additional Health Concerns Infection Onset Date Last Indicated Resolved Time COVID - 19 01/09/2024 01/09/2024 01/09/2024 8:39 AM CDT Respiratory Rule-Out 01/09/2024 01/09/2024 024 8:42 AM CDT documented as of this encounter Care Teams Employment Legal Assistant Relationship Specialty Start Date End Date Gigi Waters MD [address] [place] [id number] PCP - General Family Medicine 01/24/23 documented as of this encounter
--- OUTSIDE RECORDS SUMMARY | 2024-11-07 05:01 | XMS_ITS | Encounter Summary ---
Author Organization [facility] Care Team Providers Care Truck Jumper Name Role Phone Deena Beach APRN, MANAGER [employer] Primary Care P edgar Encounter Details Date Type Department Care Team (Latest Contact Info) Description 04/20/2021 Travel Social History Tobacco Use Types Packs/Day [...] have Coronavirus / COVID-19? No / Unsure 04/20/2021 11:31 AM CDT documented as of this encounter Plan of Treatment Upcoming Encounters Date Type Department Care Team (Late st Contact Info) Description 11/08/2024 2:00 PM CHEMICAL DEPENDENCY NURSE Office Visit [facility] - Primary Care - [place] [address] [place] [phone] Almaz Sin APRN, MANAGER [employer] [address] [place] [address] documented as of this encounter Visit Diagnoses Not on filedocumented in this encounter Care Teams Truck Jumper Relationship Specialty Start Date End Date Deena Beach, MANUFACTURER'S SERVICE REPRESENTATIVE, MANAGER [employer] [address] [place] [address] PCP - General Advanced Practice Nurse 09/24/19 documented as of this encounter
--- OUTSIDE RECORDS SUMMARY | 2024-11-07 05:01 | XMS_ITS | Encounter Summary ---
Author Organization [facility] Address [address] [place] [address] Phone Care Team Providers Care Telephone Clerks Supervisor Name Role Phone Deena Beach APRN, MYRNA Primary Care P edgar Encounter Details Date Type Department Care Team (Late st Contact Info) Description 01/15/2021 Telephone [facility] - Gastroenterology [facility] [address] [place] [phone] Erica Blandon Mallory, [facility] [address] [place] [address] Social History Tobacco Use Types Packs/Day Years [...] have Coronavirus / COVID-19? No / Unsure 01/02/2021 10:27 AM PRISON GUARD documented as of this encounter Miscellaneous Notes * Telephone Encounter - Eva García - 01/15/2021 8:58 AM CDT Please sign COVID lab test for patient to have done prior to his procedure on 01/22/2021 documented in this encounter Plan of Treatment Upcoming Encounters Date Type Department Care Team (Late st Contact Info) Description 11/08/2024 2:00 PM PRISON GUARD Office Visit [facility] - Primary Care - [place] [address] [place] [phone] Almaz Sin APRN, BOARD OPERATOR [address] [place] [address] documented as of this encounter Results * SARS-COV-2 BY MOLECULAR (01/19/2021 8:37 AM CDT) SARSCOV2 NOT DETECTED (Referen ce Range for this test is Not Detected ) [facility] THERMOFISHER FAST DX 01/19/2021 7:21 PM CDT [facility] Comment:This test was perfor med by a RT-PCR method. Other NASAL STRUCTURE / Unknown Non-Phlebotomy Collection / Unknown 01/19/2021 8:37 AM CDT 01/19/2021 9:36 AM CDT Narrative [facility] - 01/19/2021 7:21 PM CDT Authorized Fact Sheets about this test for providers and patients are available at: https://www.fda.gov/medical-devices/izyqsosff-egqbphpcnr-tzpozso-devices/emergen cy-us e-authorizations us Erica Blandon PAC MICROBIOLOGY - GENERAL OR DERABLES Final Result [facility] [address] [place] [address], [place] documented in this encounter Visit Diagnoses Diagnosis Pre-operative laboratory examination- Primary Pre-procedural laboratory examination documented in this encounter Care Teams Telephone Clerks Supervisor Relationship Specialty Start Date End Date Deena Beach APRN, BOARD OPERATOR [address] [place] [address] PCP - General Advanced Practice Nurse 09/24/19 documented as of this encounter
--- OUTSIDE RECORDS SUMMARY | 2024-11-07 05:01 | XMS_ITS | Encounter Summary ---
Author Organization [facility] Address [address] [place] [address] Phone Care Team Providers Care Associate Teacher Name Role Phone Deena Beach APRN, CNP Primary Care P rovider Reason for Visit * Reason Comments Follow-up Encounter Details Date Type Department Care Team (Late st Contact Info) Description 01/16/2021 9:30 AM CDT Office Visit [facility] - Primary Care - [place] [address] [place] [phone] Deena Beach APRN, CNP [address] [place] [address] Malignant neoplasm of sigmoid colon (HCC) (Primary Dx); S/P laparoscopic colectomy; Gastroesophageal reflux disease, unspecified whether esophagitis present; Screening for heart disease Discharge Disposition: Discharged to home or Selfcare Social History Tobacco Use Types Packs/Day Years Used Date Smoking Tobacco: Former Cigarettes 1 10 0 02/11/1957 - 02/11/1967 Smokeless Tobacco: Never Tobacco Cessation:Counseling Given: Yes Alcohol Use Standard Drinks/Week Comments Yes 6 [...] have Coronavirus / COVID-19? No / Unsure 01/16/2021 9:09 AM CDT documented as of this encounter Last Filed Vital Signs Vital Sign Reading Time Taken Comments Blood Pressure 122/58 01/16/2021 9:23 AM CDT Pulse 80 01/16/2021 9:23 AM CDT Temperature 36.6 ??C (97.9 ??F) 01/16/2021 9:23 AM CD T Respiratory Rate 20 01/16/2021 9:23 AM CDT Oxygen Saturation 98% 01/16/2021 9:23 AM CDT Inhaled Oxygen Concentration - - Weight 80.8 kg (178 lb 3.2 oz) 01/16/2021 9:23 A M CDT Height 182.9 cm (6') 01/16/2021 9:23 AM CDT Body Mass Index 24.17 01/16/2021 9:23 AM CDT documented in this encounter Patient Instructions * Patient Instructions* Deena Beach APN, CNP - 01/16/2021 9:30 AM CDT Start an OTC Pepcid Complete to help with heartburn. If any new or worsening symptoms occur, please call office. Repeat fasting labs in 3mo. documented in this encounter Progress Notes * Ella Carolina CMA - 01/16/2021 9:30 AM CDT Lucian Sosa, 80 y.o., male is here for Follow-up Medication Refills: Patient reports/denies need for medication refills. Orders Pended: no Requested Prescriptions No prescriptions requested or ordered in this encounter Home Medications Medication Sig Start Date End Date Taking? Authorizing Provider Acetaminophen (TYLENOL PO) Take by mouth 3 times daily. Indications: 2 tabs TID Yes Provider, MD Haydee capecitabine (XELODA) 500 MG Tablet Take 3 Tablets by mouth 2 times daily 12/06/20 Yes Ayan Estrada MD diphenhydrAMINE-APAP, sleep, (TYLENOL PM EXTRA STRENGTH PO) Take by mouth nightly. Yes Provider, MD Haydee omeprazole (PriLOSEC) 20 MG CAPSULE DELAYED RELEASE Take 1 Capsule by mouth every morning (before breakfast). 12/28/20 Yes Ayan Estrada MD There are no discontinued medications. I have reviewed the home medication list with the patient and have reconciled discrepancies. The list is accurate to the best of my knowledge. Smoking Status: Social History Tobacco Use ??? Smoking status: Former Smoker Packs/day: 1.00 Years: 10.00 Pack years: 10.00 Quit date: 02/11/1967 Years since quittin.9 ??? Smokeless tobacco: Never Used Substance Use Topics ??? Alcohol use: Yes Alcohol/week: 3.6 oz Types: 6 Cans of beer per week ??? Drug use: No Smoking Cessation Counseling Given: no Health Care Maintenance: Health Maintenance Due Topic Date Due ??? DTaP/Tdap/Td Immunization (1 - Tdap) Never done ??? SARS-COV-2 Immunization (1) Never done ??? Zoster Immunization (1 of 2) Never done ??? Pneumococcal Immunization (65+ years) (2 of 2 - PPSV23) 09/27/2020 ??? Colorectal Cancer Screening 01/21/2021 Orders Pended: no The following BPA's have been addressed with the patient today: Fall Risk * Tova Santillan, Student - 01/16/2021 9:30 AM CDT [facility] [address] [address] Dept: [phone] Dept Loc: [phone] Loc Patient: Lucian Sosa : 1940 Sex: male Subjective Subjective: HPI: Lucian Sosa presents for 3 month follow-up. Patient saw Dr. Estrada on 12/28. States he has been having lots of trouble with the pills (Xeloda.) He states he gets severe heartburn. She gave him Prilosec 20 mg but states it does not help at all. He states he takes 2 weeks then off one week. He states Xeloda was dropped from 3 pills BID to 2 pills BID and some relief was achieved from that drop. Has follow-up colonoscopy on 01/22/2021. Review of Systems Constitutional: Negative. Respiratory: Negative. Cardiovascular: Positive for chest pain (States he thinks it is heart burn related. Mylanta relieves it) and palpitations (states he has these a few times a week). Gastrointestinal: Positive for diarrhea (med side-effect). Negative for abdominal distention, abdominal pain, anal bleeding, blood in stool, constipation, nausea, rectal pain and vomiting. Genitourinary: Negative. Neurological: Negative. Objective Objective: BP 122/58 (BP Location: Right Arm, BP Position: Sitting, BP Cuff Size: Regular) Pulse 80 Temp 97.9 ??F (36.6 ??C) (Temporal) Resp 20 Ht 6' (1.829 m) Wt 178 lb 3.2 oz (80.8 kg) SpO2 98% BMI 24.17 kg/m?? Physical Exam Vitals and nursing note reviewed. Constitutional: General: He is not in acute distress. Appearance: He is well-developed. He is not diaphoretic. HENT: Head: Normocephalic and atraumatic. Right Ear: External ear normal. Left Ear: External ear normal. Eyes: General: No scleral icterus. Conjunctiva/sclera: Conjunctivae normal. Pupils: Pupils are equal, round, and reactive to light. Neck: Trachea: No tracheal deviation. Cardiovascular: Rate and Rhythm: Normal rate and regular rhythm. Heart sounds: Normal heart sounds. No murmur. Pulmonary: Effort: Pulmonary effort is normal. No respiratory distress. Breath sounds: Normal breath sounds. No wheezing or rales. Abdominal: General: Bowel sounds are normal. There is no distension. Palpations: Abdomen is soft. Tenderness: There is no abdominal tenderness. There is no guarding or rebound. Musculoskeletal: General: Normal range of motion. Cervical back: Normal range of motion. Skin: General: Skin is warm and dry. Neurological: Mental Status: He is alert and oriented to person, place, and time. Cranial Nerves: No cranial nerve deficit. Coordination: Coordination normal. Psychiatric: Mood and Affect: Mood normal. Behavior: Behavior normal. Thought Content: Thought content normal. Judgment: Judgment normal. Medical Decision Making: Assessment & Plan Diagnoses and all orders for this visit: Malignant neoplasm of sigmoid colon (HCC) - COMPLETE BLOOD COUNT (CBC) WITH DIFF; Future - CMP (COMPREHENSIVE METABOLIC PANEL); Future - LIPID PANEL; Future S/P laparoscopic colectomy Gastroesophageal reflux disease, unspecified whether esophagitis present Screening for heart disease - COMPLETE BLOOD COUNT (CBC) WITH DIFF; Future - CMP (COMPREHENSIVE METABOLIC PANEL); Future - LIPID PANEL; Future Return in about 3 months (around 04/18/2021) for routine . Total time spent on this encounter on this date of service, including pre-visit review of separately obtained history, [id number] interaction performing medically appropriate physical exam, patient counseling/education, interpretation of diagnostic results, care coordination and documentation was 25 minutes. Cosigned by Deena Beach APN, CNP at 01/16/2021 10:08 AM CDT Associated attestation - Deena Beach APRN, CNP - 01/16/2021 10:08 AM CDT I was immediately available during this visit on 01/16/21. I have reviewed and agree with the ABDIAZIZ students history, exam and medical decision making with the following additions/revisions noted. I discussed the history, exam and medical decision making with the CAR LOT ATTENDANT student at the time of the visit. Encouraged him to add pepcid complete to his regimen for GERD. Call if symptoms continue when off of chemo medications. documented in this encounter Plan of Treatment Upcoming Encounters Date Type Department Care Team (Late st Contact Info) Description 11/08/2024 2:00 PM ECOSYSTEM ECOLOGY PROFESSOR Office Visit [facility] - Primary Care - [place] [address] [place] [phone] Almaz Sin APRN, BUSINESS CONTROL SPECIALIST [address] [place] [address] documented as of this encounter Results * LIPID PANEL (04/18/2021 8:53 AM CDT) CHOLESTEROL 144 <=200 mg/dL 04/18/2021 1:24 PM CDT [facility] TRIGLYCERIDES 91 <150 mg/dL 04/18/2021 1:24 PM CDT [facility] HDL CHOLESTEROL 52.9 >40 mg/dL 1:24 PM CDT [facility] LDL 73 5 - 130 mg/dL 04/18/2021 1:24 PM CDT [facility] VLDL 18 5 - 55 mg/dL 04/18/2021 1:24 PM CDT [facility] CHOL/HDL RATIO 2.7 0.0 - 4.4 04/18/2021 1:24 PM CDT [facility] NON-HDL CHOLESTEROL 91.1 <130 mg/dL 04/18/2021 1:24 PM CDT [facility] IS THE PATIENT REQUIRED TO BE FASTING? Yes 04/18/2021 1:24 PM CDT [facility] HAS THE PATIENT BEEN FASTING? Yes 04/18/2021 1:24 PM CDT [facility] Blood Venipuncture / Unknown 04/18/2021 8:53 AM CDT 04/18/2021 8:53 AM CDT Deena Beach APRN, BUSINESS CONTROL SPECIALIST CHEMISTRY ORDER AMRITA Final Result [facility] [address] [place] [address] * (ABNORMAL) CMP (COMPREHENSIVE METABOLIC PANEL) (01/19/2021 8:37 AM CDT) [facility] SODIUM 141 136 - 144 mmol/L 01/19/2021 10:16 AM CDT [facility] POTASSIUM 4.4 3.5 - 5.1 mmol/L 01/19/2021 10:16 AM CDT [facility] CHLORIDE 106 100 - 110 mmol/L 01/19/2021 10:16 AM CDT [facility] CO2, VENOUS 29 22 - 32 mmol/L 01/19/2021 10:16 AM CDT [facility] ANION GAP 10.4 8.0 - 20.0 mmol/L 01/19/2021 10:16 AM [facility] GLUCOSE 101(H) 70 - 99 mg/dL 01/19/2021 10:16 AM T [facility] BUN 21 8 - 23 mg/dL 01/19/2021 10:16 AM [facility] CREATININE, BLOOD 0.83 0.80 - 1.30 mg/dL 01/19/2021 10:16 AM [facility] BUN/CREATININE RATIO 25(H) 12 - 20 ratio 01/19/2021 10:16 AM [facility] TOTAL PROTEIN 6.9 6.0 - 8.3 g/dL 01/19/2021 10:16 AM [facility] ALBUMIN 4.4 3.5 - 5.2 g/dL 01/19/2021 10:16 AM [facility] Comment: The colormetric methods used for the determination of Albumin may lead to falsely elevated test results in patients suffering from renal failure or insufficiency due to interference with other proteins. A/G RATIO 1.8 1.0 - 2.0 01/19/2021 10:16 AM T [facility] CALCIUM 9.4 8.9 - 10.3 mg/dL 01/19/2021 10:16 AM CDT [facility] T BILI 0.4 <=1.2 mg/dL 01/19/2021 10:16 AM T [facility] SGOT (AST) 17 <=40 U/L 01/19/2021 10:16 AM CDT [facility] SGPT (ALT) 12 <=41 U/L 01/19/2021 10:16 AM CDT [facility] ALKALINE PHOSPHATASE 75 40 - 130 U/L 01/19/2021 10:16 AM CDT [facility] GFR, EST. NONAFRICAN >60 >=60 01/19/2021 10:16 AM CDT [facility] GFR, EST. >60 >=60 021 10:16 AM CDT [facility] Comment: Creatinine Clearance is the preferred criteria for selecting drug dose adjustments in renally impaired patients. ??The GFR is provided as additional pertinent clinical information. GFR is reported in mL/min/1.73 sq m. IS THE PATIENT REQUIRED TO BE FASTING? No 01/19/2021 10:16 AM CDT [facility] Blood Venipuncture / Unknown 01/19/2021 8:37 AM CDT 01/19/2021 9:37 AM CDT Deena Beach APRN, CNP CHEMISTRY ORDER AMRITA Final Result [facility] [address] [place] [address] documented in this encounter Visit Diagnoses Diagnosis Malignant neoplasm of sigmoid colon (HCC)- Primary Malignant neoplasm of sigmoid colon S/P laparoscopic colectomy Other postprocedural status Gastroesophageal reflux disease, unspecified whether esophagitis present Screening for heart disease Screening for other and unspecified cardiovascular conditions documented in this encounter Care Teams Associate Teacher Relationship Specialty Start Date End Date Deena Beach APRN, CNP [address] [place] [address] PCP - General Advanced Practice Nurse 09/24/19 documented as of this encounter
--- OUTSIDE RECORDS SUMMARY | 2024-11-07 05:01 | XMS_ITS | Encounter Summary ---
Author Organization [facility] Address [address] [place] [address] Phone Care Team Providers Care Interactive Media Marketing Director Name Role Phone Deena Beach APRN, CNP Primary Care P edgar Encounter Details Date Type Department Care Team (Late st Contact Info) Description 04/18/2021 9:00 AM CDT Lab [facility] - Primary Care - [address] [phone] Lab, [facility] Malignant neoplasm of sigmoid colon (HCC); Screening for heart disease Discharge Disposition: Discharged [...] have Coronavirus / COVID-19? No / Unsure 04/18/2021 8:52 AM CDT documented as of this encounter Progress Notes * Tigist Pimentel RMA - 04/18/2021 9:00 AM CDT Lucian presents for lab draw per order of Deena Beach APN, HOME VISITS NURSE dated 04/18/21. Specimen collected from right antecubital without incident. sah documented in this encounter Plan of Treatment Upcoming Encounters Date Type Department Care Team (Late st Contact Info) Description 11/08/2024 2:00 PM CROSSCUTTER ROLLED GLASS Office Visit [facility] - Primary Care - [place] [address] [place] [address] Almaz Sin APRN, HOME VISITS NURSE [address] [place] [address] documented as of this encounter Procedures Procedure Name Priority Date/Time Associated Diagnosis Comments LIPID PANEL Routine 04/18/2021 8:53 AM CDT Malignant neoplasm of sigmoid colon (HCC) Screening for heart disease documented in this encounter Results * LIPID PANEL (04/18/2021 8:53 AM CDT) CHOLESTEROL 144 <=200 mg/dL 04/18/2021 1:24 PM CDT [facility] TRIGLYCERID[facility] 91 <150 mg/dL 04/18/2021 1:24 PM CDT [facility] HDL CHOLESTEROL 52.9 >40 mg/dL 1:24 PM CDT [facility] LDL 73 5 - 130 mg/dL 04/18/2021 1:24 PM CDT [facility] VLDL 18 5 - 55 mg/dL 04/18/2021 1:24 PM CDT [facility] CHOL/HDL RATIO 2.7 0.0 - 4.4 04/18/2021 1:24 PM CDT [facility] NON-HDL CHOLESTEROL 91.1 <130 mg/dL 04/18/2021 1:24 PM CDT [facility] IS THE PATIENT REQUIRED TO BE FASTING? Yes 04/18/2021 1:24 PM CDT [facility] HAS THE PATIENT BEEN FASTING? Yes 04/18/2021 1:24 PM CDT [facility] Blood Venipuncture / Unknown 04/18/2021 8:53 AM CDT 04/18/2021 8:53 AM CDT Deena Beach APRN, CNP CHEMISTRY ORDER AMRITA Final Result [facility] [address] [place] [address] documented in this encounter Visit Diagnoses Diagnosis Malignant neoplasm of sigmoid colon (HCC) Malignant neoplasm of sigmoid colon Screening for heart disease Screening for other and unspecified cardiovascular conditions documented in this encounter Care Teams Interactive Media Marketing Director Relationship Specialty Start Date End Date Deena Beach APRN, CNP [address] [place] [address] PCP - General Advanced Practice Nurse 09/24/19 documented as of this encounter
--- OUTSIDE RECORDS SUMMARY | 2024-11-07 05:01 | XMS_ITS | Encounter Summary ---
Author Organization [facility] [employer] Care Team Providers Care Shiatsu Therapist Name Role Phone Deena Beach APRN, DSP ENGINEER Primary Care P edgar Encounter Details Date Type Department Care Team (Latest Contact Info) Description 11/28/2020 Travel Social History Tobacco Use Types Packs/Day [...] have Coronavirus / COVID-19? No / Unsure 11/28/2020 8:10 AM CAMP MAINTENANCE SUPERVISOR documented as of this encounter Plan of Treatment Upcoming Encounters Date Type Department Care Team (Late st Contact Info) Description 11/08/2024 2:00 PM CAMP MAINTENANCE SUPERVISOR Office Visit [facility] - Primary Care - [place] [address] [place] [phone] Almaz Sin APRN, DSP ENGINEER [address] [address] documented as of this encounter Visit Diagnoses Not on filedocumented in this encounter Care Teams Shiatsu Therapist Relationship Specialty Start Date End Date Deena Beach, HOUSE DESIGNER, DSP ENGINEER [address] [place] [address] PCP - General Advanced Practice Nurse 09/24/19 documented as of this encounter
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
--- OUTSIDE RECORDS SUMMARY | 2024-11-07 05:01 | XMS_ITS | Encounter Summary ---
Author Organization [facility] Address [address] [place] [address] Phone Care Team Providers Care Manager Printing Name Role Phone Deena Beach APRN, MAILROOM MANAGER Primary Care P edgar Reason for Referral * Radiology Services (Routine) - Closed Specialty Diagnoses / Procedures Referred By Contac t Referred To Contact Radiology Diagnoses Malignant neoplasm of sigmoid colon (HCC) Procedures CT CHEST ABDOMEN AND PELVIS W CONTRAST Ayan Estrada MD [address] [place] [address] Phone: tel: fax: Referral ID Status Reason Start Date Expiration Date Visits Re quested Visits Authorized [id number] Closed 04/26/2021 1 1 Reason for Visit * Radiology Services (Routine) - Closed Specialty Diagnoses / Procedures Referred By Baldemar bui Referred To Contact Radiology Diagnoses Malignant neoplasm of sigmoid colon (HCC) Procedures CT CHEST ABDOMEN AND PELVIS W CONTRAST Ayan Estrada MD [address] [place] [address] Phone: tel: fax: Referral ID Status Reason Start Date Expiration Date Visits Re quested Visits Authorized [id number] Closed 04/26/2021 1 1 Encounter Details Date Type Department Care Team (Latest Contact Info) Description 06/22/2021 7:15 AM CDT - 06/22/2021 11:59 PM CDT Hospital Encounter [facility] [address] [place] [phone] Ayan Estrada MD [address] [place] [address] Discharge Disposition: Discharged to home or Selfcare [...] have Coronavirus / COVID-19? No / Unsure 06/22/2021 6:37 AM CDT documented as of this encounter Medications at Time of Discharge Acetaminophen (TYLENOL PO)Indications:2 tabs TID Take by mouth 3 times daily. Indications: 2 tabs TID 3 diphenhydrAMINE- APAP, sleep, (TYLENOL PM EXTRA STRENGTH PO) Take by mouth nightly. 3 omeprazole (PriLOSEC) 20 MG CAPSULE DELAYED RELEASE TAKE 1 CAPSULE BY MOUTH EVERY DAY IN THE MORNING BEFORE BREAKFAST 30 Capsule 3 05/18/2021 3 documented as of this encounter Plan of Treatment Upcoming Encounters Date Type Department Care Team (Late st Contact Info) Description 11/08/2024 2:00 PM MAXILLOFACIAL PATHOLOGY Office Visit [facility] - Primary Care - [place] [address] [place] [phone] Almaz Sin, STRETCHING MACHINE TENDER FRAME, MAILROOM MANAGER [address] [place] [address] documented as of this encounter Procedures Procedure Name Priority Date/Time Associated Diagnosis Comments CT CHEST ABDOMEN AND PELVIS W CONTRAST Routine 06/22/2021 8:09 AM CDT Malignant neoplasm of sigmoid colon (HCC) POCT CREATININE Routine 06/22/2021 7:56 AM CDT documented in this encounter Results * CT CHEST ABDOMEN AND PELVIS W CONTRAST (06/22/2021 8:09 AM CDT) Anatomical Region Laterality Modality Chest, Abdomen, Pelvis N/A Computed Tomography 06/22/2021 10:0 5 AM CDT Impressions 06/22/2021 10:09 AM CDT IMPRESSION: ?? 1. ??Postsurgical changes related to partial colectomy with anastomosis at the region of the distal sigmoid. ??No evidence of local recurrence. ??Scattered nodes are present, measuring less than 1 cm in short axis dimension. 2. ??1.5 cm right adrenal nodule and subcentimeter left adrenal nodule, both indeterminate but stable compared to the prior examination. 3. ??No definite metastatic disease within the chest. 4. ??Hepatic cysts, stable. ??There is a focus of enhancement within the posteromedial right lobe of the liver which could reflect a vascular variant, incompletely characterized on this single phase postcontrast study. ??Lesion appears similar to the prior examination from September 2020. ??Multiphase imaging with CT or MRI can be utilized for further characterization. 5. ??Additional findings as above. Narrative 06/22/2021 10:09 AM CDT EXAM DESCRIPTION: ?? CT CHEST ABDOMEN AND PELVIS W CONTRAST REASON FOR STUDY: ?? Malignant neoplasm of the sigmoid colon status post surgery and chemotherapy. ??Assess treatment response. TECHNIQUE: ??CT scan of the chest, abdomen, and pelvis performed with intravenous and ??with oral contrast using helical scanning technique with dynamic intravenous contrast injection. Reconstructed coronal and sagittal MPR images reviewed. All images stored on PACS. ?? Automated exposure control was used as a dose optimization technique for this examination. CONTRAST TYPE/DOSE: ?? 100 mL Isovue 370 injected via ??the left antecubital COMPARISON: ?? 10/24/2020 FINDINGS: ??CHEST LUNGS: ??There are scattered mild atelectatic changes demonstrated within the lungs bilaterally. ??There is no localized consolidation. ?? There is no pulmonary mass or cavitary lesion. ??There are a few scattered 1-2 mm bilateral pulmonary nodules which are nonspecific but stable compared to the prior examination. ??No new suspicious pulmonary nodularity. PLEURA: ??No effusion. No pneumothorax. MEDIASTINUM/KRYSTAL: ??The thyroid gland is stable in appearance. ??There are scattered postinflammatory calcifications in the mediastinum. ?? There is no new mediastinal or hilar lymphadenopathy. ??The esophagus is unremarkable. HEART: ??The heart is normal in size. ??There are coronary artery calcifications. ??No pericardial effusion. VASCULATURE CHEST: ??Thoracic aorta is atherosclerotic, without aneurysm. AXILLA: ??There is no axillary lymphadenopathy. CHEST WALL: ??No masses. ??No subcutaneous air. HARDWARE/LINES/TUBES: ??None. MUSCULOSKELETAL CHEST: ??Thoracic spondylosis. ??Multilevel endplate degenerative changes and osteophyte formation. ??No destructive osseous lesion. 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 ABDOMEN/PELVIS LIVER: ??The liver is normal in size and contour. ??There is a cyst in the medial left lobe of the liver measuring 2.5 cm, stable. ??There are a few additional tiny hypodensities in the lateral aspect of the left lobe of the liver, also stable. ??Cyst within the caudate lobe measures 1.8 cm, stable. ??There is no new suspicious hepatic lesion. Subtle area of enhancement along the posteromedial aspect of the right lobe of the liver on axial images 122-125 is technically indeterminate, but stable from prior study. ??This may reflect a vascular variant. GALLBLADDER: ??No stones identified. No wall thickening or inflammatory changes. BILE DUCTS: ??No intrahepatic or extrahepatic ductal dilatation. SPLEEN: ??Spleen is at the upper limits of normal in size, without a focal mass. ??There are a few granulomatous calcifications. PANCREAS: ??No identified cystic or solid masses. No significant calcifications. No adjacent inflammation or peripancreatic fluid collections. Pancreatic duct not dilated. ADRENALS: ??There is a 1.5 cm right adrenal nodule. ??It is technically indeterminate, but stable in size compared to the prior examination. ??The left adrenal gland reveals a small nodule measuring less than 1 cm in size, also stable. KIDNEYS/URINARY TRACT: ??The kidneys enhance symmetrically. ??There are bilateral cortical hypodensities, too small to characterize. ?? Statistically these would represent cysts. ??There is a nonobstructing left renal calculus at the lower pole, stable. ??Pat pelvic cyst is noted on the left, stable. ??There is no hydronephrosis or hydroureter. ??The urinary bladder is decompressed, limiting assessment. GI: ??The stomach is unremarkable. ??Small bowel loops are within normal limits of caliber. ??There is no obstruction. ??The appendix is normal. ??There is diverticulosis of the colon. ??There is mild increased stool in the right hemicolon. ??There is an anastomosis at the sigmoid colon. ??No wall thickening or soft tissue nodularity to suggest recurrent/residual disease. ??There is some increased stool in the rectum without definitive fecal impaction. PERITONEUM: ??There is no free intraperitoneal air. ??There is no free fluid. ??There are scattered mesenteric nodes, none significantly enlarged by size criteria. ?? RETROPERITONEUM: ??There is no retroperitoneal mass or adenopathy. REPRODUCTIVE: ??Prostate gland is heterogeneous. VASCULATURE ABDOMEN: ??Atherosclerotic changes, without aneurysm or dissection. MUSCULOSKELETAL ABDOMEN PELVIS: ??Lumbar spondylosis. ??Multilevel degenerative disc disease greatest at L4-5 and L5-S1. ?? Osteoarthritis of the hips. ??No destructive osseous lesion. OTHER: ??Small fat containing bilateral inguinal hernias, right slightly larger than left. THIS IS AN ELECTRONICALLY VERIFIED FINAL REPORT 06/22/2021 10:05 AM - Electronically signed by Princess Beckman M.D. TB: TB D: ??06/22/2021 10:05 AM T: ??06/22/2021 10:05 AM Report ID: [id number] Reading Location: [facility] Procedure Note Princess Beckman MD - 06/22/2021 EXAM DESCRIPTION: CT CHEST ABDOMEN AND PELVIS W CONTRAST REASON FOR STUDY: Malignant neoplasm of the sigmoid colon status post surgery and chemotherapy. Assess treatment response. TECHNIQUE: CT scan of the chest, abdomen, and pelvis performed with intravenous and with oral contrast using helical scanning technique with dynamic intravenous contrast injection. Reconstructed coronal and sagittal MPR images reviewed. All images stored on PACS. Automated exposure control was used as a dose optimization technique for this examination. CONTRAST TYPE/DOSE: 100 mL Isovue 370 injected via the left antecubital COMPARISON: 10/24/2020 FINDINGS: CHEST LUNGS: There are scattered mild atelectatic changes demonstrated within the lungs bilaterally. There is no localized consolidation. There is no pulmonary mass or cavitary lesion. There are a few scattered 1-2 mm bilateral pulmonary nodules which are nonspecific but stable compared to the prior examination. No new suspicious pulmonary nodularity. PLEURA: No effusion. No pneumothorax. MEDIASTINUM/KRYSTAL: The thyroid gland is stable in appearance. There are scattered postinflammatory calcifications in the mediastinum. There is no new mediastinal or hilar lymphadenopathy. The esophagus is unremarkable. HEART: The heart is normal in size. There are coronary artery calcifications. No pericardial effusion. VASCULATURE CHEST: Thoracic aorta is atherosclerotic, without aneurysm. AXILLA: There is no axillary lymphadenopathy. CHEST WALL: No masses. No subcutaneous air. HARDWARE/LINES/TUBES: None. MUSCULOSKELETAL CHEST: Thoracic spondylosis. Multilevel endplate degenerative changes and osteophyte formation. No destructive osseous lesion. 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 ABDOMEN/PELVIS LIVER: The liver is normal in size and contour. There is a cyst in the medial left lobe of the liver measuring 2.5 cm, stable. There are a few additional tiny hypodensities in the lateral aspect of the left lobe of the liver, also stable. Cyst within the caudate lobe measures 1.8 cm, stable. There is no new suspicious hepatic lesion. Subtle area of enhancement along the posteromedial aspect of the right lobe of the liver on axial images 122-125 is technically indeterminate, but stable from prior study. This may reflect a vascular variant. GALLBLADDER: No stones identified. No wall thickening or inflammatory changes. BILE DUCTS: No intrahepatic or extrahepatic ductal dilatation. SPLEEN: Spleen is at the upper limits of normal in size, without a focal mass. There are a few granulomatous calcifications. PANCREAS: No identified cystic or solid masses. No significant calcifications. No adjacent inflammation or peripancreatic fluid collections. Pancreatic duct not dilated. ADRENALS: There is a 1.5 cm right adrenal nodule. It is technically indeterminate, but stable in size compared to the prior examination. The left adrenal gland reveals a small nodule measuring less than 1 cm in size, also stable. KIDNEYS/URINARY TRACT: The kidneys enhance symmetrically. There are bilateral cortical hypodensities, too small to characterize. Statistically these would represent cysts. There is a nonobstructing left renal calculus at the lower pole, stable. Pat pelvic cyst is noted on the left, stable. There is no hydronephrosis or hydroureter. The urinary bladder is decompressed, limiting assessment. GI: The stomach is unremarkable. Small bowel loops are within normal limits of caliber. There is no obstruction. The appendix is normal. There is diverticulosis of the colon. There is mild increased stool in the right hemicolon. There is an anastomosis at the sigmoid colon. No wall thickening or soft tissue nodularity to suggest recurrent/residual disease. There is some increased stool in the rectum without definitive fecal impaction. PERITONEUM: There is no free intraperitoneal air. There is no free fluid. There are scattered mesenteric nodes, none significantly enlarged by size criteria. RETROPERITONEUM: There is no retroperitoneal mass or adenopathy. REPRODUCTIVE: Prostate gland is heterogeneous. VASCULATURE ABDOMEN: Atherosclerotic changes, without aneurysm or dissection. MUSCULOSKELETAL ABDOMEN PELVIS: Lumbar spondylosis. Multilevel degenerative disc disease greatest at L4-5 and L5-S1. Osteoarthritis of the hips. No destructive osseous lesion. OTHER: Small fat containing bilateral inguinal hernias, right slightly larger than left. THIS IS AN ELECTRONICALLY VERIFIED FINAL REPORT 06/22/2021 10:05 AM - Electronically signed by Princess Beckman M.D. TB: TB Report ID: [id number] Reading Location: [facility] [place] IMPRESSION: 1. Postsurgical changes related to partial colectomy with anastomosis at the region of the distal sigmoid. No evidence of local recurrence. Scattered nodes are present, measuring less than 1 cm in short axis dimension. 2. 1.5 cm right adrenal nodule and subcentimeter left adrenal nodule, both indeterminate but stable compared to the prior examination. 3. No definite metastatic disease within the chest. 4. Hepatic cysts, stable. There is a focus of enhancement within the posteromedial right lobe of the liver which could reflect a vascular variant, incompletely characterized on this single phase postcontrast study. Lesion appears similar to the prior examination from September 2020. Multiphase imaging with CT or MRI can be utilized for further characterization. 5. Additional findings as above. us Ayan Estrada MD IMG CT ORDERABLES Final Result * POCT Creatinine (06/22/2021 7:56 AM CDT) CREATININE - POCT 0.8 0.6 - 1.3 mg/dL 06/22/2021 7:58 AM CDT [facility] Blood 06/22/2021 7:56 AM CDT 06/22/2021 7:58 AM CDT None Provider POINT OF CARE TESTING Final Resu lt [facility] [address] [place] [address] documented in this encounter Visit Diagnoses Diagnosis Malignant neoplasm of sigmoid colon (HCC) Malignant neoplasm of sigmoid colon documented in this encounter Administered Medications Inactive Administered Medications - up to 3 most recent administrations Medication Order MAR Action Action Date Dose Rate Site diatrizoate meglumine-sodium (GASTROGRAFIN) 66-10 % solution 15 mL 15 mL, Oral, ONCE, 1 dose, On Fri06/22/21 at 0800 Given 06/22/2021 7:18 AM CDT 15 mL iopamidol (ISOVUE-370) 76 % injection 100 mL 100 mL, Intravenous, ONCE, 1 dose, On Fri06/22/21 at 0800 Given 06/22/2021 8:04 AM CDT 100 mL documented in this encounter Care Teams Manager Printing Relationship Specialty Start Date End Date Deena Beach, STRETCHING MACHINE TENDER FRAME, MAILROOM MANAGER [address] [place] [address] PCP - General Advanced Practice Nurse 09/24/19 documented as of this encounter
--- OUTSIDE RECORDS SUMMARY | 2024-11-07 05:01 | XMS_ITS | Encounter Summary ---
Author Organization [facility] Address [address] [place] [address] Phone Care Team Providers Care Creping Machine Operator Helper Name Role Phone Gigi Waters MD Primary Care Provider [phone] Reason for Visit * Reason Comments Urinary Frequency Urinary Pain Encounter Details Date Type Department Care Team (Latest Contact Info) Description 08/21/2023 10:00 AM CDT [facility] [place] [address] [place] [address] Ophelia Coleman, UTILITY ENGINEER, TRUST MAIL CLERK [address] [place] [address] Urinary frequency (Primary Dx); Acute cystitis with hematuria Discharge Disposition: Discharged to home or Selfcare [...] suspected to have Coronavirus/COVID-19? No / Unsure 08/21/2023 9:07 AM CDT documented as of this encounter Last Filed Vital Signs Vital Sign Reading Time Taken Comments Blood Pressure 164/72 08/21/2023 9:47 AM CDT Pulse 74 08/21/2023 9:47 AM CDT Temperature 35.9 ??C (96.7 ??F) 08/21/2023 9:47 AM CD T Respiratory Rate 14 08/21/2023 9:47 AM CDT Oxygen Saturation 99% 08/21/2023 9:47 AM CDT Inhaled Oxygen Concentration - - Weight - - Height - - Body Mass Index - - documented in this encounter Patient Instructions * Patient Instructions* Ophelia Coleman APRN, CNP - 08/21/2023 10:00 AM CDT Care as instructed on AVS If medication was prescribed it was sent to the pharmacy. Take all medication as prescribed. Do not skip a dose and take until completed. Follow up with PCP if the symptoms do not improve Go to the ER if symptoms become severe * Attachments The following attachments cannot be sent through Care Everywhere. * Urinary Frequency Adult ([place]) documented in this encounter Progress Notes * Benson Bonilla RN - 08/21/2023 10:00 AM CDT Floyd Kenyandy Elam. complains of Pt states that he has had the frequent urination for quite a while, but it recently started to get worse Urinary Frequency This is a new problem. The current episode started more than 1 month ago. The problem occurs intermittently. The problem has been gradually worsening since onset. The pain is mild. Associated symptoms include dysuria, frequency and urgency. The symptoms are aggravated by certain body positions. Treatments tried: azo. The treatment provided mild relief. He is not sexually active. He never uses condoms. Urinary Pain Associated symptoms include frequency and urgency. Today's Review of Systems Genitourinary: Positive for dysuria, frequency and urgency. * Ophelia Coleman APRN, CNP - 08/21/2023 10:00 AM CDT HPI: Floyd Sosa Jr. is a 83 y.o. male in the prompt care today for urinary frequency. Symptoms started for over a month Severity of symptoms is intermittent and gradually worsening Associated symptoms include dysuria, frequency and urgency Patient is currently taking over the counter nothing for the symptoms. Smoker: Former Past, family, or social history was noted Patient Active Problem List Diagnosis ??? Malignant neoplasm of sigmoid colon (HCC) ??? S/P laparoscopic colectomy ??? Encounter for screening for other viral diseases ??? GERD (gastroesophageal reflux disease) ROS: Review of Systems Constitutional: Negative for chills and fever. Gastrointestinal: Negative for abdominal pain. Genitourinary: Positive for dysuria, frequency and urgency. Negative for decreased urine volume, difficulty urinating, flank pain, hematuria, penile discharge, penile pain, penile swelling, scrotal swelling and testicular pain. PE: BP 164/72 Pulse 74 Temp 96.7 ??F (35.9 ??C) (Temporal) Resp 14 SpO2 99% Physical Exam Vitals and nursing note reviewed. Constitutional: General: He is not in acute distress. Appearance: Normal appearance. He is normal weight. He is not ill-appearing. HENT: Head: Normocephalic. Cardiovascular: Rate and Rhythm: Normal rate. Pulmonary: Effort: Pulmonary effort is normal. No respiratory distress. Abdominal: Tenderness: There is no right CVA tenderness or left CVA tenderness. Skin: General: Skin is warm and dry. Neurological: Mental Status: He is alert and oriented to person, place, and time. ASSESSMENT/PLAN: 1. Urinary frequency - POCT UA AUTOMATED W/O MICRO - CULTURE, URINE 2. Acute cystitis with hematuria - nitrofurantoin, monohydrate-macrocrystal, (MACROBID) 100 MG Capsule; Take 1 Capsule by mouth 2 times daily for 7 days. Dispense: 14 Capsule; Refill: 0 - Increase the amount of fluids that you are drinking. Water, Pedialyte, Gatorade or Powerade are the best choices. Rest or nap frequently to help your body recover. AVS from today was printed, discussed with patient/family and given to patient/family Patient Instructions Care as instructed on AVS If medication was prescribed it was sent to the pharmacy. Take all medication as prescribed. Do not skip a dose and take until completed. Follow up with PCP if the symptoms do not improve Go to the ER if symptoms become severe Chief complaint and all history documented by ancillary staff were reviewed and verified, with additions or corrections, as appropriate. documented in this encounter Plan of Treatment Upcoming Encounters Date Type Department Care Team (Late st Contact Info) Description 11/08/2024 2:00 PM DREDGE PUMPER Office Visit [facility] - Primary Care - [place] [address] [place] [address] Almaz Sin APRN, CNP [address] [place] [address] documented as of this encounter Procedures Procedure Name Priority Date/Time Associated Diagnosis Comments CULTURE, URINE Routine 08/21/2023 10:32 AM CDT Urinary frequency POCT UA AUTOMATED W/O MICRO Routine 08/21/2023 10:00 AM CDT Urinary frequency documented in this encounter Results * CULTURE, URINE (08/21/2023 10:32 AM CDT) CULTURE RESULTS MIXED GROWTH OF ONE OR MORE DISTAL URETHRAL CONTAMINANTS 08/23/2023 5:32 PM CDT [facility] Culture URINE SPECIMEN COLLECTION, CLEAN CATCH / Unknown Non-Phlebotomy Collection / Unknown 08/21/2023 10:32 AM CDT 08/21/2023 10:32 AM CDT us Ophelia Coleman APRN, CNP MICROBIOLOGY - GENE RAL ORDERABLES Final Result [facility] [address] [place] [address], [place] * (ABNORMAL) POCT UA AUTOMATED W/O MICRO (08/21/2023 10:00 AM CDT) POC UA SPECIFIC GRAVITY 1.025 URINE PH 5.0 5.0 - 9.0 POC URINE LEUKOCYTES Negative Negative Jordi/uL POC URINE NITRITE Negative Negative POC URINE PROTEIN Negative Negative mg/dL POC URINE GLUCOSE Norm Negative, Norm mg/dL POC URINE KETONE Negative Negative mg/dL POC URINE UROBILINOGEN 1 E.U./dL (mg/dL) Norm, 0.2 E.U./dL (mg/dL), 1 E.U./dL (mg/dL) POC URINE BILIRUBIN 1 mg/dL(A) Negative mg/dL POC URINE BLOOD INSTRUMENT 50 Humberto/uL(A) Negative Humberto/uL POC URINE COLOR Yellow POC URINE CLARITY Clear Urine 08/21/2023 10:0 0 AM CDT us Ophelia Coleman UTILITY ENGINEER, TRUST MAIL CLERK POINT OF CARE TESTI NG (MANUAL) Final Result documented in this encounter Visit Diagnoses Diagnosis Urinary frequency- Primary Acute cystitis with hematuria Acute cystitis documented in this encounter Care Teams Creping Machine Operator Helper Relationship Specialty Start Date End Date Gigi Waters MD [address] [place] [address] PCP - General Family Medicine 01/24/23 documented as of this encounter
--- OUTSIDE RECORDS SUMMARY | 2024-11-07 05:01 | XMS_ITS | Encounter Summary ---
Author Organization [facility] Address [address] [place] [address] Phone Care Team Providers Care Earth Science Technical Officer Name Role Phone Deena Beach APRN, MYRNA Primary Care P edgar Reason for Referral * Consult, Test & Initiate Treatment (Routine) - Closed Specialty Diagnoses / Procedures Referred By Baldemar bui Referred To Contact Oncology Diagnoses Malignant neoplasm of sigmoid colon (HCC) Juan Mendez MD [address] [place] [address] Phone: tel: fax: [facility] [address] [place] [address] Phone: tel: fax: Referral ID Status Reason Start Date Expiration Date Visits Re quested Visits Authorized [id number] Closed 11/17/2020 1 1 Scheduling Instructions 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 See below for Lucian's current medications, allergies and problem list. Please contact patient for scheduling questions or concerns. CURRENT MEDS: Current Outpatient Medications: ? ? acetaminophen (TYLENOL) 325 MG Tablet, Take 1 Tab by mouth every 6 hours as needed for Mild or more severe pain or Fever for up to 5 days. Do not exceed 4000 mg of acetaminophen in 24 hour from all sources., Disp: 120 Tab, Rfl: ? ? diphenhydrAMINE-APAP, sleep, (TYLENOL PM EXTRA STRENGTH PO), Take by mouth nightly., Disp: , Rfl: ? ? ibuprofen (MOTRIN) 200 MG Tablet, Take 2 Tabs by mouth every 6 hours as needed for Mild or more severe pain for up to 5 days., Disp: 100 Tab, Rfl: 0 ? ? oxyCODONE (ROXICODONE) 5 MG Tablet, Take 1 Tab by mouth every 4 hours as needed for Severe pain., Disp: 10 Tab, Rfl: 0 No current facility-administered medications for this visit. ALLERGIES: No Known Allergies PROBLEM LIST: Patient Active Problem List: Tear of left rotator cuff Malignant neoplasm of sigmoid colon (HCC) TE INPATIENT CODER Encounter Details Date Type Department Care Team (Late Contact Info) Description 11/17/2020 Care Management [facility] - General Surgery [facility] [address] [address] Juan Mendez MD #[address] [id number] Social History Tobacco Use Types Packs/Day Years [...] have Coronavirus / COVID-19? No / Unsure 11/13/2020 7:21 AM REMOTE INPATIENT CODER documented as of this encounter Miscellaneous Notes * Care Plan - Juan Mendez MD - 11/17/2020 10:48 AM CST Encounter for referral to Oncology TE INPATIENT CODER documented in this encounter Plan of Treatment Upcoming Encounters Date Type Department Care Team (Late st Contact Info) Description 11/08/2024 2:00 PM REMOTE INPATIENT CODER Office Visit [facility] - Primary Care - [place]ina [address] [place] [address] Almaz Sin APRN, DINKEY LOCOMOTIVE ENGINEER [address] [place] [address] Scheduled Referrals Name Type Priority Associated Diagnoses Order Schedule HEMATOLOGY ONCOLOGY REFERRAL Outpatient Referral Routine Malignant neoplasm of sigmoid colon (HCC) Expected: 11/17/2020, Expires: 02/15/2021 documented as of this encounter Visit Diagnoses Diagnosis Malignant neoplasm of sigmoid colon (HCC)- Primary Malignant neoplasm of sigmoid colon documented in this encounter Care Teams Earth Science Technical Officer Relationship Specialty Start Date End Date Deena Beach APRN, DINKEY LOCOMOTIVE ENGINEER [address] [place] [address] PCP - General Advanced Practice Nurse 09/24/19 documented as of this encounter
--- OUTSIDE RECORDS SUMMARY | 2024-11-07 05:01 | XMS_ITS | Encounter Summary ---
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 OPERATOR SIGMOIDOSCOPY FLEXIBLE 11/13/2020 10:21 AM TELEX OPERATOR 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 WBC 6.25 4.00 - 12.00 10(3)/mcL 11/15/2020 4:39 AM [facility] RBC 3.33(L) 4.40 - 5.80 10(6)/mcL 11/15/2020 4:39 AM [facility] HEMOGLOBIN (HGB) 10.4(L) 13.0 - 16.5 g/dL 11/15/2020 4:39 AM [facility] HEMATOCRIT (HCT) 32.2(L) 38.0 - 50.0 % 11/15/2020 4:39 AM [facility] MCV 96.7(H) 82.0 - 96.0 fL 11/15/2020 4:39 AM [facility] MCH 31.2 26.0 - 32.0 pg 11/15/2020 4:39 AM [facility] MCHC 32.3 31.0 - 36.0 g/dL 11/15/2020 4:39 AM [facility] PLATELET COUNT 172 140 - 440 10(3)/mcL 11/15/2020 4:39 AM [facility] RDW 13.1 11.8 - 15.5 % 11/15/2020 4:39 AM [facility] MPV 9.9 8.0 - 12.6 fL 11/15/2020 4:39 AM [facility] NEUTROPHILS 46.5 40.0 - 68.0 % 11/15/2020 4:39 AM [facility] LYMPHOCYTES 44.6 19.0 - 49.0 % 11/15/2020 4:39 AM TELEX OPERATOR [facility] MONOCYTES 6.7 3.0 - 13.0 % 11/15/2020 4:39 AM [facility] EOSINOPHILS 1.9 0.0 - 8.0 % 11/15/2020 4:39 AM [facility] BASOPHILS 0.3 0.0 - 1.0 % 11/15/2020 4:39 AM [facility] ABSOLUTE NEUTROPHILS 2.90 1.40 - 5.30 10(3)/[facility] 11/15/2020 4:39 AM [facility] ABSOLUTE LYMPHOCYTES 2.79 0.90 - 3.30 10(3)/[facility] 11/15/2020 4:39 AM [facility] ABSOLUTE MONOCYTES 0.42 0.10 - 0.90 10(3)/[facility] 11/15/2020 4:39 AM [facility] ABSOLUTE EOSINOPHIL 0.12 0.00 - 0.50 10(3)/[facility] 11/15/2020 4:39 AM [facility] ABSOLUTE BASOPHILS 0.02 0.00 - 0.10 10(3)/[facility] 11/15/2020 4:39 AM [facility] NRBC PER 100 WBC 0 11/15/19 4:39 AM [facility] Blood Venipuncture / Unknown 11/15/2020 3:57 AM TELEX OPERATOR 11/15/2020 4:35 AM TELEX OPERATOR us Juan Mendez MD HEMATOLOGY ORDERABLES Final Resu lt [facility] [place] [address] * (ABNORMAL) BMP with Ca, Total (11/15/2020 3:57 AM TELEX OPERATOR) Only the most recent of2 resultswithin the time period is included. SODIUM 133(L) 136 - 144 mmol/L 11/15/2020 4:57 AM TELEX OPERATOR [facility] POTASSIUM 4.1 3.5 - 5.1 mmol/L 11/15/2020 4:57 AM [facility] CHLORIDE 101 100 - 110 mmol/L 11/15/2020 4:57 AM [facility] CO2, VENOUS 27 22 - 32 mmol/L 11/15/2020 4:57 AM [facility] ANION GAP 9.1 8.0 - 20.0 mmol/L 11/15/2020 4:57 AM TELEX OPERATOR [facility] GLUCOSE 86 70 - 99 mg/dL 11/15/2020 4:57 AM [facility] BUN 18 8 - 23 mg/dL 11/15/2020 4:57 AM [facility] CREATININE, BLOOD 0.66(L) 0.80 - 1.30 mg/dL 11/15/2020 4:57 AM [facility] BUN/CREATININE RATIO 27(H) 12 - 20 ratio 11/15/2020 4:57 AM [facility] CALCIUM 8.1(L) 8.9 - 10.3 mg/dL 11/15/2020 4:57 AM [facility] GFR, EST. NONAFRICAN >60 >=60 11/15/2020 4:57 AM [facility] GFR, EST. >60 >=60 11/15/2020 4:57 AM [facility] Comment: Creatinine Clearance is the preferred criteria for selecting drug dose adjustments in renally impaired patients. ??The GFR is provided as additional pertinent clinical information. GFR is reported in mL/min/1.73 sq m. Blood Venipuncture / Unknown 11/15/2020 3:57 AM TELEX OPERATOR 11/15/2020 4:35 AM TELEX OPERATOR us Juan Mendez MD CHEMISTRY ORDERABLES Final Resul t [facility] [place] [address] * PHOSPHORUS (PO4) AM (11/14/2020 3:52 AM TELEX OPERATOR) PHOSPHORUS 4.0 2.4 - 4.7 mg/dL 11/14/2020 5:18 AM TELEX OPERATOR [facility] Blood Venipuncture / Unknown 11/14/2020 3:52 AM TELEX OPERATOR 11/14/2020 4:45 AM TELEX OPERATOR Juan Mendez MD CHEMISTRY ORDERABLES Final Resul t Performing Organization Address [facility] de Phone Number [facility] [place] [address] * Magnesium (Mg) (11/14/2020 3:52 AM TELEX OPERATOR) MAGNESIUM 1.9 1.8 - 2.5 mg/dL 11/14/2020 5:18 AM TELEX OPERATOR [facility] Blood Venipuncture / Unknown 11/14/2020 3:52 AM TELEX OPERATOR 11/14/2020 4:45 AM TELEX OPERATOR Juan Mendez MD CHEMISTRY ORDERABLES Final Resul t Performing Organization Address [facility] de Phone Number [facility] [address] [place] [address] * Pathology Surgical (11/13/2020 12:17 PM TELEX OPERATOR) Only the most recent of2 resultswithin the time period is included. Case Report Surgical Pathology Report ? Case: [id number] ? Authorizing Provider: ??Juan Mendez MD ? Collected: ? 11/13/2020 12:17 PM ? Ordering Location: ? [facility] ? Received: ?11/13/2020 12:36 PM ? [facility] ? Main OR ? Pathologist: ? Beverly Bray MD ? Specimens: ?? A) - Rectal, RECTAL SIGMOID TUMOR ? B) - Soft Tissue, COLON DONUTS ? 1 2:16 PM TELEX OPERATOR [facility] FINAL DIAGNOSIS A. Colon, sigmoid tumor resection: - Colonic adenocarcinoma, moderately differentiated, extending through muscular propria into pericolonic fat, 8 cm in greatest dimension, margins clear. - Diverticulosis of colon. - Thirty-three pericolonic lymph nodes negative for tumor (0/33). B. Colon, donuts, excision: - Negative for tumor. 1 2:16 PM TELEX OPERATOR [facility] Addendum Immunohistochemistry method to determine loss of expression or retained expression of DNA mismatch repair proteins (MMR), MLH1, PMS2, MSH2 and MSH6. Result: Mismatch repair (MMR) normal. See the scanned report in [facility] for details on methodology and interpretation () performed at [facility]; [place], [place]. 1 2:16 PM TELEX OPERATOR [facility] Addendum electronically signed by Gentry Rich MD on 11/21/2020 at 2:16 PM Comment MMR by IHC will be performed and results reported in an addendum. 1 2:16 PM TELEX OPERATOR [facility] Pre-Operative Diagnosis MALIGNANT NEOPLASM SIGMOID COLON 1 2:16 PM [facility] Intraoperative Consultation A. RECTAL SIGMOID TUMOR Sigmoid colectomy (gross evaluation): - Tumor present, margins grossly clear (closest/distal margin 4 cm from tumor). - Diagnosis relayed to Dr. Mendez at 12:25 pm on / Dr. Bray. 1 2:16 PM TELEX OPERATOR [facility] Gross Description A. RECTAL SIGMOID TUMOR Received unfixed labeled Lucian Sosa L, low anterior colon resection is a 22.5 cm segment of colon with a staple line and black tatoo ink at the distal end. The specimen appears completely above the peritoneal reflexion. The specimen is opened intraoperatively and margins evaluated grossly. After fixation, the opened segment of bowel contains a large fungating, circumferential tumor that measures 6.5 cm in length and 8 cm in circumference and appears fixed to underlying colon wall. There is up to 8 cm of attached pericolonic fat present and mesenteric margin is greater than 7 cm from tumor. Scattered firm nodules are present within the fat compatible with lymph nodes. The distal tumor edge is 4 cm from the staple line and proximal tumor edge is 8 cm from the colon margin. There are a few diverticula present in proximal colon mucosa. The pericolonic fat is removed, fixed in O-Fix and lymph nodes are dissected and submitted. Sections submitted as follows: A1 - proximal margin A2 - distal margin A3-6 - tumor A7 - proximal diverticula Possible lymph node candidates ranging from 0.2 cm up to 1.2 cm in greatest dimension submitted as follows:. A8 - largest lymph node bisected A9 - two lymph nodes bisected, 1 inked red, 1 inked blue A10 - three lymph nodes bisected, 1 inked red, 1 inked blue, 1 inked black A11 - six lymph nodes A12 - seven lymph node candidates A13 - six possible lymph node candidates A14 - eight possible lymph node candidates A15 - one lymph node bisected B. COLON DONUTS The specimen is designated as colon donut. The specimen consists of two pieces of light bull tissues. They are circular in shape measuring approximately 2 cm in greatest dimension each. Both specimens have sutures and avila and have pink bull to light bull glistening mucosal folds. Optical Glass Silverer sample submitted in cassette B1. MI/sb 1 2:16 PM TELEX OPERATOR [facility] Microscopic Description 16 H&E slides. Microscopic examination substantiates the final diagnosis. /sb 1 2:16 PM [facility] Synoptic Reporting COLON AND RECTUM: Resection, Including Transanal Disk Excision of Rectal Neoplasms ??(COLON AND RECTUM: RESECTION - A) 8th Edition - Protocol posted: 12/22/2019 SPECIMEN ?? Procedure: ?Sigmoidectomy TUMOR ?? Tumor Site: ?Sigmoid colon ?? Histologic Type: ?Adenocarcinoma ?? Histologic Grade: ?G2: Moderately differentiated ?? Tumor Size: ?Greatest dimension (Centimeters): 8 cm ? Additional Dimension (Centimeters): ?6.5 cm ?? Tumor Extension: ?Tumor invades through the muscularis propria into pericolorectal tissue ?? Macroscopic Tumor Perforation: ?Not identified ?? Lymphovascular Invasion: ?Present ? Lymphovascular Invasion Type: ?Small vessel lymphovascular invasion ?? Perineural Invasion: ?Not identified ?? Type of Polyp in Which Invasive Carcinoma Arose: ?None identified ?? Treatment Effect: ?No known presurgical therapy MARGINS ?? Margins: ?All margins are uninvolved by invasive carcinoma, high grade dysplasia / intramucosal carcinoma, and low grade dysplasia ? Margins Examined: ?Proximal ? Margins Examined: ?Distal ? Closest Margin: ?Distal ? Distance of Tumor from Radial (circumferential) Margin: ?40 mm LYMPH NODES ?? Number of Lymph Nodes Involved: ?0 ?? Number of Lymph Nodes Examined: ?0 ?? Tumor Deposits: ?Not identified PATHOLOGIC STAGE CLASSIFICATION (pTNM, AJCC 8th Edition) ? Primary Tumor (pT): ?pT3 ?? Regional Lymph Nodes (pN): ?pN0 ADDITIONAL FINDINGS ?? Additional Findings: ?Diverticulosis Comment(s) Comment(s): ?MMR studies pending 2:16 PM TELEX OPERATOR [facility] Other (Rectal) 11/13/2020 12 :17 PM TELEX OPERATOR 11/13/2020 12:36 PM TELEX OPERATOR Tissue specimen (specimen) SOFT TISSUE SPECIMEN / Unknown 11/13/2020 12:48 PM TELEX OPERATOR 11/13/2020 1:36 PM TELEX OPERATOR Juan Mendez MD PATHOLOGY/CYTOLOGY ORDERABLES Ed ited Result - Final [facility] [place] [address] * TYPE & SCREEN (CROSSMATCH CONVERTIBLE) (11/13/2020 7:52 AM TELEX OPERATOR) ABO TYPING A 11/13/2020 9:08 AM TELEX OPERATOR [facility] RH Positive 11/13/2020 9:08 AM TELEX OPERATOR [facility] ABSC Negative 11/13/2020 9:08 AM TELEX OPERATOR [facility] Blood Venipuncture / Unknown 11/13/2020 7:52 AM TELEX OPERATOR 11/13/2020 8:15 AM TELEX OPERATOR us Vladimir Hill MD BLOOD BANK ORDERABLES Edited Result - Final [facility] [place] [address] documented in this encounter Visit Diagnoses Diagnosis Malignant neoplasm of sigmoid colon (HCC)- Primary Malignant neoplasm of sigmoid colon Malignant neoplasm of sigmoid colon (HCC) Malignant neoplasm of sigmoid colon documented in this encounter Administered Medications Inactive Administered Medications - up to 3 most recent administrations Medication Order MAR Action Action Date Dose Rate Site acetaminophen (TYLENOL) tablet 650 mg 650 mg, Oral, 4 TIMES DAILY BEFORE MEALS & NIGHTLY, First dose on Fri11/13/20 at 1630, Until Discontinued, For Mild Pain, or Fever (temperature greater than 100.4). If patient is taking oral intake without complications and both PO/GA orders are active, administer through the oral route., POST-OP (NURSING UNIT) Given 11/14/2020 10:00 PM TELEX OPERATOR 650 mg Given 11/14/2020 7:07 AM TELEX OPERATOR 650 mg Given 11/13/2020 10:32 PM TELEX OPERATOR 650 mg acetaminophen (TYLENOL) tablet 975 mg 975 mg, Oral, ONCE, 1 dose, On Fri11/13/20 at 0800, Maximum dose of acetaminophen is 4000 mg from all sources in 24 hours., PRE-OP (SURGERY) Given 11/13/2020 7:59 AM TELEX OPERATOR 975 m g ACETAMINOPHEN 325 MG PO TABS 1 dose, Starting on Fri11/13/20 at 0738, Until Fri11/13/20 at 0759, Created by mattie bray ceFAZolin (ANCEF) 2 g/20 mL IV syringe 2 g, Intravenous, at 120 mL/hr, ONCE, 1 dose, On Fri11/13/20 at 0800, Administer over 10 Minutes, INTRA-OP, Indications: Perioperative PharmacoprophylaxisIndications:Periope rative Pharmacoprophylaxis Given 11/13/2020 10:56 AM TELEX OPERATOR 2 g 120 mL/hr celecoxib (CeleBREX) capsule 200 mg 200 mg, Oral, ONCE, 1 dose, On Fri11/13/20 at 0800, PRE-OP (SURGERY) Given 11/13/2020 8:00 AM TELEX OPERATOR 200 mg CELECOXIB 200 MG PO CAPS 1 dose, Starting on Fri11/13/20 at 0738, Until Fri11/13/20 at 0800, Created by cabinet override dexamethasone (DECADRON) injection 8 mg 8 mg, Intravenous, ONCE, 1 dose, On Fri11/13/20 at 0800, PRE-OP (SURGERY) Given 11/13/2020 8:05 AM TELEX OPERATOR 8 mg DEXAMETHASONE SODIUM PHOSPHATE 4 MG/ML IJ SOLN 1 dose, Starting on Fri11/13/20 at 0738, Until Fri11/13/20 at 0805, Created by cabinet override famotidine (PEPCID) tablet 20 mg 20 mg, Oral, 2 TIMES DAILY, First dose on Fri11/13/20 at 1430, Until Discontinued, 1. Use PO form unless unable to tolerate PO medications, then use Injection. 2. Provider to consider discontinuation when the risk factors for stress ulcer are no longer present or the patient is transferred from the ICU., POST-OP (NURSING UNIT), Indications: Stress Ulcer ProphylaxisIndications:Stress Ulcer Prophylaxis Given 11/15/2020 8:13 AM TELEX OPERATOR 20 mg Given 11/14/2020 8:43 PM TELEX OPERATOR 20 mg Given 11/14/2020 8:30 AM TELEX OPERATOR 20 mg fentaNYL (PF) (SUBLIMAZE) injection 25 mcg 25 mcg, Intravenous, ONCE, 1 dose, On Fri11/13/20 at 1400 Given 11/13/2020 1:42 PM TELEX OPERATOR 25 mcg FENTANYL CITRATE (PF) 100 MCG/2ML IJ SOLN 1 dose, Starting on Fri11/13/20 at 1335, Until Fri11/13/20 at 1342, Created by cabinet override gabapentin (NEURONTIN) capsule 600 mg 600 mg, Oral, ONCE, 1 dose, On Fri11/13/20 at 0800, PRE-OP (SURGERY) Given 11/13/2020 7:58 AM TELEX OPERATOR 600 mg GABAPENTIN 300 MG PO CAPS 1 dose, Starting on Fri11/13/20 at 0738, Until Fri11/13/20 at 0758, Created by cabinet override HEParin (porcine) injection 5,000 Units 5,000 Units, Subcutaneous, EVERY 8 HOURS SCHEDULED (3 times per day), First dose on Fri11/13/20 at 1600, Until Discontinued, POST-OP (NURSING UNIT) Given 11/15/2020 7:34 AM TELEX OPERATOR 5,000 Units Rig ht Abdomen Given 11/15/2020 12:22 AM TELEX OPERATOR 5,000 Units Right Abdomen Given 11/14/2020 7:09 AM TELEX OPERATOR 5,000 Units L eft Abdomen HYDROmorphone (DILAUDID) OPERATIONS MANAGER/COORDINATOR 1 mg/mL Intravenous, OPERATIONS MANAGER/COORDINATOR, Starting on Fri11/13/20 at 1430, Until Fri11/15/20 at 0816, POST-OP (NURSING UNIT) OPERATIONS MANAGER/COORDINATOR Syringe 11/13/2020 2:55 PM TELEX OPERATOR ketorolac (TORADOL) injection 15 mg 15 mg, Intravenous, EVERY 6 HOURS, 16 doses, First dose on Fri11/13/20 at 1430, Last dose on Fri11/17/20 at 0830, For Moderate Pain, and pain unrelieved by Mild Analgesic medications (if ordered)., POST-OP (NURSING UNIT) Given 11/15/2020 3:08 AM TELEX OPERATOR 15 mg Given 11/14/2020 8:43 PM TELEX OPERATOR 15 mg Given 11/14/2020 8:30 AM TELEX OPERATOR 15 mg lactated ringers infusion at 20 mL/hr, Intravenous, CONTINUOUS, Starting on Fri11/13/20 at 0800, Until Fri11/13/20 at 1412, PRE-OP (SURGERY) New Bag 11/13/2020 7:55 AM TELEX OPERATOR 20 mL/h r 20 mL/hr lactated ringers infusion at 100 mL/hr, Intravenous, CONTINUOUS, Starting on Fri11/13/20 at 1430, Until Fri11/15/20 at 0926, POST-OP (NURSING UNIT) New Bag 11/15/2020 7:33 AM TELEX OPERATOR 100 mL/hr New Bag 11/14/2020 8:55 PM TELEX OPERATOR 100 mL/hr New Bag 11/14/2020 10:55 AM TELEX OPERATOR 100 mL/hr metroNIDAZOLE (FLAGYL) IV 500 mg 500 mg, Intravenous, at 200 mL/hr, ONCE, 1 dose, On Fri11/13/20 at 0800, Administer over 30 Minutes, INTRA-OP, Indications: Perioperative PharmacoprophylaxisIndications:Periop erative Pharmacoprophylaxis New Bag 11/13/2020 10:57 AM TELEX OPERATOR 500 mg 200 mL/hr ondansetron (ZOFRAN) injection 4 mg 4 mg, Intravenous, ONCE, 1 dose, On Fri11/13/20 at 0800, PRE-OP (SURGERY) Given 11/13/2020 8:02 AM TELEX OPERATOR 4 mg ONDANSETRON HCL 4 MG/2ML IJ SOLN 1 dose, Starting on Fri11/13/20 at 0738, Until Fri11/13/20 at 0802, Created by cabinet override documented in this encounter Active and Recently Administered Medications Times are shown in TELEX OPERATOR. Scheduled Medication Order 11/13/2020 11/14/2020 11/15/2020 acetaminophen (TYLENOL) tablet 650 mg 650 mg, Oral, 4 TIMES DAILY BEFORE MEALS & NIGHTLY, First dose on Fri11/13/20 at 1630, Until Discontinued, For Mild Pain, or Fever (temperature greater than 100.4). If patient is taking oral intake without complications and both PO/GA orders are active, administer through the oral route., POST-OP (NURSING UNIT) 1503 (Given - Provider: Radha Soler RN)2232 (Given - Provider: Jean-Pierre Porter RN) 0707 (Given - Provider: Radha Soler RN)1130 (Not Given - Provider: Radha Soler RN - Reason: Patient/family refused)1630 (Not Given - Provider: Radha Soler RN - Reason: Patient/family refused)2200 (Given - Provider: Vanita Sommers RN) 0730 (Not Given - Provider: Rodríguez Nuñez RN - Reason: Patient/family refused)1130 (Not Given - Provider: Rodríguez Nuñez RN - Reason: Patient/family refused) acetaminophen (TYLENOL) tablet 975 mg (COMPLETED) 975 mg, Oral, ONCE, 1 dose, On Fri11/13/20 at 0800, Maximum dose of acetaminophen is 4000 mg from all sources in 24 hours., PRE-OP (SURGERY) 0759 (Given - Provider: Lionel Baeza RN) ceFAZolin (ANCEF) 2 g/20 mL IV syringe (COMPLETED) 2 g, Intravenous, at 120 mL/hr, ONCE, 1 dose, On Fri11/13/20 at 0800, Administer over 10 Minutes, INTRA-OP, Indications: Perioperative Pharmacoprophylaxis 0800 (Canceled Entry - Provider: Radha Soler RN)1056 (Given - Provider: Doris Bowden APN, LINE STAKER) celecoxib (CeleBREX) capsule 200 mg (COMPLETED) 200 mg, Oral, ONCE, 1 dose, On Fri11/13/20 at 0800, PRE-OP (SURGERY) 0800 (Given - Provider: Lionel Baeza RN) dexamethasone (DECADRON) injection 8 mg (COMPLETED) 8 mg, Intravenous, ONCE, 1 dose, On Fri11/13/20 at 0800, PRE-OP (SURGERY) 0805 (Given - Provider: Lionel Baeza RN) famotidine (PEPCID) tablet 20 mg 20 mg, Oral, 2 TIMES DAILY, First dose on Fri11/13/20 at 1430, Until Discontinued, 1. Use PO form unless unable to tolerate PO medications, then use Injection. 2. Provider to consider discontinuation when the risk factors for stress ulcer are no longer present or the patient is transferred from the ICU., POST-OP (NURSING UNIT), Indications: Stress Ulcer Prophylaxis 1519 (Given - Provider: Radha Soler RN)2232 (Given - Provider: Jean-Pierre Porter, GLORIA) 0830 (Given - Provider: Radha Soler RN)2043 (Given - Provider: Vanita Sommers RN) 0813 (Given - Provider: Rodríguez Nuñez RN) fentaNYL (PF) (SUBLIMAZE) injection 25 mcg (COMPLETED) 25 mcg, Intravenous, ONCE, 1 dose, On Fri11/13/20 at 1400 1342 (Given - Provider: Zofia Joel, GLORIA) gabapentin (NEURONTIN) capsule 600 mg (COMPLETED) 600 mg, Oral, ONCE, 1 dose, On Fri11/13/20 at 0800, PRE-OP (SURGERY) 0758 (Given - Provider: Lionel Baeza, RN) HEParin (porcine) injection 5,000 Units 5,000 Units, Subcutaneous, EVERY 8 HOURS SCHEDULED (3 times per day), First dose on Fri11/13/20 at 1600, Until Discontinued, POST-OP (NURSING UNIT) 1503 (Given - Provider: Radha Soler RN) 0053 (Given - Provider: Jean-Pierre Porter, GLORIA)0709 (Given - Provider: Radha Soler RN)1600 (Not Given - Provider: Radha Soler RN - Reason: Patient/family refused) 0022 (Given - Provider: Vanita Sommers RN)0734 (Given - Provider: Rodríguez Nuñez RN) ketorolac (TORADOL) injection 15 mg 15 mg, Intravenous, EVERY 6 HOURS, 16 doses, First dose on Fri11/13/20 at 1430, Last dose on Fri11/17/20 at 0830, For Moderate Pain, and pain unrelieved by Mild Analgesic medications (if ordered)., POST-OP (NURSING UNIT) 1503 (Given - Provider: Radha Soler RN)2232 (Given - Provider: Jean-Pierre Porter, RN) 0257 (Given - Provider: Jean-Pierre Porter RN)0830 (Given - Provider: Radha Soler RN)1430 (Not Given - Provider: Radha Soler RN - Reason: Patient/family refused)2043 (Given - Provider: Vanita Sommers RN) 0308 (Given - Provider: Vanita Sommers RN)0830 (Not Given - Provider: Rodríguez Nuñez RN - Reason: Patient/family refused) metroNIDAZOLE (FLAGYL) IV 500 mg (COMPLETED) 500 mg, Intravenous, at 200 mL/hr, ONCE, 1 dose, On Fri11/13/20 at 0800, Administer over 30 Minutes, INTRA-OP, Indications: Perioperative Pharmacoprophylaxis 1057 (New Bag - Provider: Doris Bowden APN, LINE STAKER)1127 (Stopped - Provider: Doris Bowden APN, LINE STAKER) ondansetron (ZOFRAN) injection 4 mg (COMPLETED) 4 mg, Intravenous, ONCE, 1 dose, On Fri11/13/20 at 0800, PRE-OP (SURGERY) 0802 (Given - Provider: Lionel Baeza RN) Continuous Medication Order 11/13/2020 11/14/2020 11/15/2020 HYDROmorphone (DILAUDID) OPERATIONS MANAGER/COORDINATOR 1 mg/mL (CANCELED) Intravenous, OPERATIONS MANAGER/COORDINATOR, Starting on Fri11/13/20 at 1430, Until Fri11/15/20 at 0816, POST-OP (NURSING UNIT) 1455 (OPERATIONS MANAGER/COORDINATOR Syringe - Provider: Radha Soler RN) 0817 (Stopped - Provider: Rodríguez Nuñez RN) lactated ringers infusion (CANCELED) at 20 mL/hr, Intravenous, CONTINUOUS, Starting on Fri11/13/20 at 0800, Until Fri11/13/20 at 1412, PRE-OP (SURGERY) 0755 (New Bag - Provider: Lionel Baeza RN)1431 (Stopped - Provider: Radha Soler, GLORIA) lactated ringers infusion (CANCELED) at 100 mL/hr, Intravenous, CONTINUOUS, Starting on Fri11/13/20 at 1430, Until Fri11/15/20 at 0926, POST-OP (NURSING UNIT) 1502 (New Bag - Provider: Radha Soler, RN) 0058 (Stopped - Provider: Jean-Pierre Porter, GLORIA)0059 (New Bag - Provider: Jean-Pierre Porter RN)1055 (New Bag - Provider: Radha Soler, RN)2055 (New Bag - Provider: Vanita Sommers RN) 0733 (New Bag - Provider: Rodríguez Nuñez RN)0927 (Stopped - Provider: Rodríguez Nuñez RN) PRN Medication Order 11/13/2020 11/14/2020 11/15/2020 bupivacaine-EPINEPHrine 0.5% [id number] injection SOLN (CANCELED) ONCE (in OR), Starting on Fri11/13/20 at 1255, Until Fri11/13/20 at 1321, INTRA-OP 1255 (Given - Provider: Juan Mendez MD)1300 (IV Stop - Provider: Radha Soler, GLORIA) ondansetron (ZOFRAN) injection 4 mg 4 mg, Intravenous, EVERY 6 HOURS PRN, Starting on Fri11/13/20 at 1412, Until Fri11/15/20 at 1544, Nausea - 1st line, First Line Antiemetic, POST-OP (NURSING UNIT) sodium chloride (irrigation) 0.9 % irrigation (CANCELED) ONCE (in OR), Starting on Fri11/13/20 at 1255, Until Fri11/13/20 at 1321, INTRA-OP 1255 (Given - Provider: Juan Mendez MD) documented in this encounter Care Teams Truck Safety Inspector Relationship Specialty Start Date End Date Deena Beach APRN, DIRT BIKE MECHANIC [address] [place] [address] PCP - General Advanced Practice Nurse 09/24/19 documented as of this encounter
--- OUTSIDE RECORDS SUMMARY | 2024-11-07 05:01 | XMS_ITS | Encounter Summary ---
Author Organization [facility] [email or web address] Care Team Providers Care Hazardous Material Technician Name Role Phone Deena Beach APRN, WHEELAGE CLERK Primary Care P edgar Encounter Details Date Type Department Care Team (Latest Contact Info) Description 01/02/2021 Travel Social History Tobacco Use Types Packs/Day [...] COVID-19? No / Unsure 01/02/2021 10:27 AM MINI SHIFTER documented as of this encounter Plan of Treatment Upcoming Encounters Date Type Department Care Team (Late st Contact Info) Description 11/08/2024 2:00 PM MINI SHIFTER Office Visit [facility] - Primary Care - [place] [address] [place] [phone] Almaz Sin APRN, WHEELAGE CLERK [address] [address] documented as of this encounter Visit Diagnoses Not on filedocumented in this encounter Care Teams Hazardous Material Technician Relationship Specialty Start Date End Date Deena Beach, SYSTEMS REQUIREMENTS PLANNER, WHEELAGE CLERK [address] [place] [address] PCP - General Advanced Practice Nurse 09/24/19 documented as of this encounter
--- OUTSIDE RECORDS SUMMARY | 2024-11-07 05:01 | XMS_ITS ---
Author Organization [facility] Address [address] [place] [address] Phone Care Team Providers Care Account Review Specialist Name Role Phone Gigi Waters MD Primary Care Provider [phone] Active Problems Problem Noted Date Diagnosed Date GERD (gastroesophageal reflux disease) S/P laparoscopic colectomy 11/28/2020 Malignant neoplasm of sigmoid colon 10/24/2020 Cancer Staging:Pathologic:Stage IIA(pT3, pN0, cM0) - Signed by Ayan Estrada MD on 01/01/2021 Encounter for screening for other viral diseases Current Treatment and Therapy Plans COLON - 5FU X 5 DAYS* Plan Start Date:12/27/2020 Plan Provider:Ayan Estrada MD Linked Problems Malignant neoplasm of sigmoi d colon (HCC)Encounter for screening for other viral diseases Treatment Medications Current Day (Salena col Activation Orders - Planned for 12/27/2020) Next Day (Day 1, Cycle 1 - Planned for 12/28/2020) fluorouracil (ADRUCIL) No medications scheduled. fluorouracil (ADRUCIL) Home Infusion Pump 350 mg/m2/day (Treatment Plan) = 3,535 mg Past Treatment and Therapy Plans No past plan information found. Resolved Problems Problem Noted Date Diagnosed Date Resolved Date Tear of left rotator cuff 02/13/2017
--- OUTSIDE RECORDS SUMMARY | 2024-11-07 05:01 | XMS_ITS | Encounter Summary ---
Author Organization [facility] Care Team Providers Care Shingle Grader Name Role Phone Deena Beach APRN, PURCHASING COORDINATOR Primary Care P edgar Encounter Details Date Type Department Care Team (Latest Contact Info) Description 03/20/2021 Travel Social History Tobacco Use Types Packs/Day [...] have Coronavirus / COVID-19? No / Unsure 03/20/2021 2:20 PM CDT documented as of this encounter Plan of Treatment Upcoming Encounters Date Type Department Care Team (Late st Contact Info) Description 11/08/2024 2:00 PM SEA AIR LAND OFFICER Office Visit [facility] - Primary Care - [place] [address] [place] [phone] Almaz Sin APRN, PURCHASING COORDINATOR [address] [place] [address] documented as of this encounter Visit Diagnoses Not on filedocumented in this encounter Care Teams Shingle Grader Relationship Specialty Start Date End Date Deena Beach, SEQUINS SLINGER, PURCHASING COORDINATOR [address] [place] [address] PCP - General Advanced Practice Nurse 09/24/19 documented as of this encounter
--- OUTSIDE RECORDS SUMMARY | 2024-11-07 05:01 | XMS_ITS | Clinical Summary ---
Author Organization [facility] Address [address] [place] [address] Phone Care Team Providers Care Ornamental Iron Worker Name Role Phone Gigi Waters MD Primary Care Provider [phone] Allergies No known active allergies Medications No known medications Active Problems Problem Noted Date Diagnosed Date GERD (gastroesophageal reflux disease) S/P laparoscopic colectomy 11/28/2020 Malignant neoplasm of sigmoid colon 10/24/2020 Cancer Staging:Pathologic:Stage IIA(pT3, pN0, cM0) - Signed by Ayan Estrada MD on 01/01/2021 Encounter for screening for other viral diseases Resolved Problems Problem Noted Date Diagnosed Date Resolved Date Tear of left rotator cuff 02/13/2017 Encounters Date Type Department Care Team Description 11/03/2024 Transcribe Orders [facility] [address] [place] [address] Provider, Not On File Gait abnormality (Primary Dx); Myopathy; Multiple traumatic injuries from Last 3 Months Immunizations Immunization Administration Dates Next Due Covid-19, Mrna, Lnp-s, Pf, 30 Mcg/0.3 Ml Dose (Juan Carlos celestin) 05/16/2021,04/25/2021 Influenza Vaccine, Quadrivalent, PF 10/18/2020,1 11/28/2018 Pneumococcal Vaccine - 13 Valent 09/27/2019 Family History Medical History Relation Name Comments Drug Abuse Brother No Known Problems Daughter 1 No Known Problems Daughter 2 Diabetes Father Heart Attack Father Colon Cancer Mother Diabetes Sister Drug Abuse Son Relation Name Status Comments Brother Daughter 1 Alive Daughter 2 Alive Father Mother Sister Son Alive Social History Tobacco Use Types Packs/Day Years [...] (170 lb) 01/09/2024 8:16 AM CDT Height 182.9 cm (6') 01/24/2023 10:28 AM CDT Body Mass Index 23.06 01/24/2023 10:28 AM CDT Plan of Treatment Upcoming Encounters Date Type Department Care Team (Late st Contact Info) Description 11/08/2024 2:00 PM MATHEMATICS FACULTY MEMBER Office Visit [facility] - Primary Care - [place] [address] [place] [phone] Almaz Sin, TETRYL DISSOLVER OPERATOR, MENTAL HEALTH PROFESSIONAL [address] [place] [address] Health Maintenance Due Date Last Done Comments Hepatitis C Virus (HCV) Screening 1940 Zoster Immunization (1 of 2) 1961 Cologuard 02/07/1992 Immunochemical Fecal Occult Blood 02/07/1992 Respiratory Syncytial Virus (RSV) Immunization (Adult) (1 - 1-dose 75+ series) 2017 SARS-COV-2 Immunization (3 - Pfizer risk series) 06/13/2021 05/16/2021, 04/25/2021 Colonoscopy High Risk 01/22/2022 01/22/2021 , 10/23/2020 Colorectal Cancer Screening 01/22/2022 Colonoscopy 01/22/2031 01/22/2021, 10/23/2020 Influenza Immunization Completed , 10/18/2020, 09/27/2019 DTaP/Tdap/Td Immunization Discontinued 10/01/2024 TdaP Immunization Completed 10/01/2024 Meningococcal Immunization (ACWY) Aged Out 10/19/2024 No longer eligible based on patient's age to complete this topic Pneumococcal Immunization (5 0+ years) Completed 10/19/2024, 09/27/2019 Pneumococcal Immunization Combined Discontinued 10/19/2024, 09/27/2019 Hepatitis B Immunization Aged Out No longer eligible based on patient's age to complete this topic Rotavirus Immunization Aged Out No lo nger eligible based on patient's age to complete this topic Medical Devices Implanted Type Area Onsite Case Manager Device Identifier Shelf Expiration Date Model / Serial / Lot Implant [employer] [place] Speed[employer] CjInforSense Bio - [id number] Implanted:Qty: 1 on 02/13/2017 by Vahid Martinez MD at [facility] IMPLANT Left: Shoulder [employer] 09/25/2018 [id number] S-4 / / [id number] Insurance MEDICARE C [employer] Advance Directives Documents on File Type Date Recorded Patient Shovel Logger Expl anation Other Advance Directive 11/14/2020 3:35 PM Personal Representat marco Designation * Full Code (Latest Code Status on File) Date Activated Date Inactivated Comments 11/13/2020 2:34 PM 11/15/2020 3:44 PM CPR-Full Madhu atment: FULL ARREST: Attempt Resuscitation/CPR wit intubation and mechanical ventilation. PRE-ARREST: Use entire range of life support measures to stabilize the patient. * Full Code Date Activated Date Inactivated Comments 02/13/2017 7:28 AM 02/13/2017 5:00 PM CPR-Full Madhu atment: FULL ARREST: Attempt Resuscitation/CPR wit intubation and mechanical ventilation. PRE-ARREST: Use entire range of life support measures to stabilize the patient. Care Teams Ornamental Iron Worker Relationship Specialty Start Date End Date Gigi Waters MD [address] [address] PCP - General Family Medicine 01/24/23
--- OUTSIDE RECORDS SUMMARY | 2024-11-07 05:01 | XMS_ITS | Encounter Summary ---
Author Organization [facility] Address [address] [place] [address] Phone Care Team Providers Care Filler Room Attendant Name Role Phone Gigi Waters MD Primary Care Provider [phone] Reason for Referral * Consult, Test & Initiate Treatment (Routine) - Canceled Specialty Diagnoses / Procedures Referred By Baldemar bui Referred To Contact General Surgery Diagnoses Screening for colon cancer Gigi Waters MD [address] [address] Phone: tel: fax: [facility] General [facility] [address] [address] Phone: tel: fax: Referral ID Status Reason Start Date Expiration Date V isits Requested Visits Authorized [id number] Canceled 01/25/2023 1 1 Scheduling Instructions Floyd is being referred forcolonoscopy. Please contact patient for scheduling questions or concerns. Reason for Visit * Reason Onset Date Comments Referral 01/24/2023 Encounter Details Date Type Department Care Team (Late st Contact Info) Description 01/24/2023 Telephone [facility] Family [facility] [address] [place] [address] Gigi Waters MD [address] [address] Referral Social History Tobacco Use Types Packs/Day Years [...] AM CDT documented as of this encounter Functional Status * Question Answer Date of Assessment Author Little interest or pleasure in doing things Not at all 01/24/2023 10:00 AM CDT RodneyRadha fragoso, RMA Feeling down, depressed, or hopeless Not at all 01/24/2023 10:00 AM CDT RodneyDannyee L, RMA * Over the past 2 weeks, how often have you been bothered by any of the following problems? Question Answer Date of Assessment Author Patient Health Questionnaire -2 Score 0 01/24/2023 10:00 AM CDT Rodney Radha L, RMA documented as of this encounter Miscellaneous Notes * Telephone Encounter - Shahnaz Gipson RN - 01/24/2023 5:26 PM CDT Referral pended. * Telephone Encounter - Shahnaz Gipson RN - 01/24/2023 5:26 PM CDT Images from the original note were not included. Danielle Steel, FIDEL P Ruy Nurse Pool A new referral will need placed using procedure code [id number] for a consultation with Dr. Mendez in regards for a Colonoscopy. Current referral using procedure code [id number] will be cancelled, please advise. documented in this encounter Plan of Treatment Upcoming Encounters Date Type Department Care Team ([facility] st Contact Info) Description 11/08/2024 2:00 PM ILLUSIONIST [facility] - [place] [address] [place] [address] Almaz Sin, SUPERVISOR FIREWORKS ASSEMBLY, MORTGAGE UNDERWRITER [address] [facility] [place] [address] Scheduled Referrals Name Type Priority Associated Diagnoses Order Schedule COLORECTAL SURGICAL REFERRAL Outpatient Referral Routine Screening for colon cancer Expected: 01/25/2023, Expires: 01/25/2024 documented as of this encounter Visit Diagnoses Diagnosis Screening for colon cancer- Primary Special screening for malignant neoplasms, colon documented in this encounter Care Teams Filler Room Attendant Relationship Specialty Start Date End Date Gigi Waters MD [address] [address] PCP - General Family Medicine 01/24/23 documented as of this encounter
--- OUTSIDE RECORDS SUMMARY | 2024-11-07 05:01 | XMS_ITS | Encounter Summary ---
Author Organization [facility] Address [address] [facility] [place] [address] Phone Care Team Providers Care Bulk Tank Car Unloader Name Role Phone Deena Beach APRN, CNP Primary Care P edgar Encounter Details Date Type Department Care Team (Late st Contact Info) Description 12/06/2020 [facility]phone [facility] [address] [place] [address] Ayan Estrada MD [address] [place] [address] Social History Tobacco Use Types Packs/Day Years [...] COVID-19? No / Unsure 11/28/2020 8:10 AM HORSEBACK RIDING INSTRUCTOR documented as of this encounter Miscellaneous Notes * Addendum Note - Fiona Millard RN - 12/06/2020 3:48 PM CSTAddended by: FIONA MILLARD on: 12/06/2020 03:48 PM Modules accepted: Orders EBACK RIDING INSTRUCTOR * Telephone Encounter - Fiona Millard RN - 12/06/2020 3:47 PM HORSEBACK RIDING INSTRUCTOR Corrected dose sent to pharmacy EBACK RIDING INSTRUCTOR * Telephone Encounter - Fiona Millard RN - 12/06/2020 2:27 PM HORSEBACK RIDING INSTRUCTOR [facility] Capecitabine EBACK RIDING INSTRUCTOR documented in this encounter Plan of Treatment Upcoming Encounters Date Type Department Care Team (Late st Contact Info) Description 11/08/2024 2:00 PM HORSEBACK RIDING INSTRUCTOR Office Visit [facility] - Primary Care - [place] [address] [place] [address] Almaz Sin APRN, OUTREACH COUNSELOR [address] [place] [address] documented as of this encounter Visit Diagnoses Not on filedocumented in this encounter Care Teams Bulk Tank Car Unloader Relationship Specialty Start Date End Date Deena Beach APRN, OUTREACH COUNSELOR [address] [place] [address] PCP - General Advanced Practice Nurse 09/24/19 documented as of this encounter
--- OUTSIDE RECORDS SUMMARY | 2024-11-07 05:01 | XMS_ITS | Encounter Summary ---
Author Organization [facility] [employer] Care Team Providers Care Longwall Shearer Operator Name Role Phone Deena Beach APRN, ASSET LIABILITY ANALYST Primary Care P edgar Encounter Details Date Type Department Care Team (Latest Contact Info) Description 11/13/2020 Travel Social History Tobacco Use Types Packs/Day [...] COVID-19? No / Unsure 11/13/2020 7:21 AM TRUER PINION AND WHEEL documented as of this encounter Plan of Treatment Upcoming Encounters Date Type Department Care Team (Late st Contact Info) Description 11/08/2024 2:00 PM TRUER PINION AND WHEEL Office Visit [facility] - Primary Care - [place] [address] [place] [phone] Almaz Sin APRN, ASSET LIABILITY ANALYST [address] [address] documented as of this encounter Visit Diagnoses Not on filedocumented in this encounter Care Teams Longwall Shearer Operator Relationship Specialty Start Date End Date Deena Beach, SNOW REMOVAL SUPERVISOR, ASSET LIABILITY ANALYST [address] [place] [address] PCP - General Advanced Practice Nurse 09/24/19 documented as of this encounter
--- OUTSIDE RECORDS SUMMARY | 2024-11-07 05:01 | XMS_ITS | Encounter Summary ---
Author Organization [facility] Address [address] [place] [address] Phone Care Team Providers Care Plant Wrapper Name Role Phone Deena Beach APRN, CNP Primary Care P rovider Reason for Visit * Reason Onset Date Comments Results 01/22/2021 labs Encounter Details Date Type Department Care Team (Late st Contact Info) Description 01/22/[address] [facility] - Primary Care - [place] [address] [place] [address] Deena Beach APRN, CNP [address] [place] [address] Results (labs) Social History Tobacco Use Types Packs/Day Years [...] have Coronavirus / COVID-19? No / Unsure 01/22/2021 5:39 AM CDT documented as of this encounter Miscellaneous Notes * Telephone Encounter - Radha Martinez RN - 01/26/2021 4:19 PM CDT Patient at work. Spoke with Sabina (on PRD) Sabina notified and states she will let patient know. * Telephone Encounter - Radha Martinez RN - 01/22/2021 9:44 AM CDT Attempted to call patient with results, no answer at this time. Left message to call back. * Telephone Encounter - Radha Martinez RN - 01/22/2021 9:42 AM CDT ----- Message from Deena Beach APN, TIE SAWYER sent at 01/22/2021 8:50 AM CDT ----- Labs overall look ok, follow up with Dr Estrada as scheduled. documented in this encounter Plan of Treatment Upcoming Encounters Date Type Department Care Team (Late st Contact Info) Description 11/08/2024 2:00 PM SOLARIS ADMINISTRATOR Office Visit [facility] - Primary Care - [place] [address] [place] [address] Almaz Sin APRN, TIE SAWYER [address] [place] [address] documented as of this encounter Visit Diagnoses Not on filedocumented in this encounter Care Teams Plant Wrapper Relationship Specialty Start Date End Date Deena Beach APRN, TIE SAWYER [address] [place] [address] PCP - General Advanced Practice Nurse 09/24/19 documented as of this encounter
--- OUTSIDE RECORDS SUMMARY | 2024-11-07 05:01 | XMS_ITS | Encounter Summary ---
Author Organization [facility] Care Team Providers Care Plastic Panel Installer Name Role Phone Deena Beach APRN, DRAW BENCH OPERATOR HELPER Primary Care P edgar Encounter Details Date Type Department Care Team (Latest Contact Info) Description 04/25/2021 Travel Social History Tobacco Use Types Packs/Day [...] st Contact Info) Description 11/08/2024 2:00 PM MEDICATION ASSISTANT Office Visit [facility] - Primary Care - [place] [address] [place] [phone] Almaz Sin APRN, DRAW BENCH OPERATOR HELPER [address] [place] [address] documented as of this encounter Visit Diagnoses Not on filedocumented in this encounter Care Teams Plastic Panel Installer Relationship Specialty Start Date End Date Deena Beach, SUPERVISOR SCRAP PREPARATION, DRAW BENCH OPERATOR HELPER [address] [place] [address] PCP - General Advanced Practice Nurse 09/24/19 documented as of this encounter
--- OUTSIDE RECORDS SUMMARY | 2024-11-07 05:01 | XMS_ITS | Encounter Summary ---
Author Organization [facility] Address [address] [place] [address] Phone Care Team Providers Care Field Cane Scaler Name Role Phone Gigi Waters MD Primary Care Provider [phone] Reason for Referral * Radiology Services (Routine) - Closed Specialty Diagnoses / Procedures Referred By Baldemar bui Referred To Contact Radiology Diagnoses Amaurosis fugax Procedures US BILATERAL CAROTID DUPLEX Donna Gomez MD [address] [facility] [address] [place] [address] Phone: tel: fax: Referral ID Status Reason Start Date Expiration Date Visits Re quested Visits Authorized [id number] Closed 02/23/2024 1 1 Encounter Details Date Type Department Care Team (Latest Contact Info) Description 02/23/2024 Transcribe Orders [facility] Central Scheduling [address] [place] [address] Donna Gomez MD [address] [facility] [address] [place] [address] Amaurosis fugax (Primary Dx) Social History Tobacco Use Types Packs/Day Years [...] st Contact Info) Description 11/08/2024 2:00 PM SHEET ROCK HANGER Office Visit [facility] - Primary Care - [place] [address] [place] [address] Almaz Sin, EINSTEIN BROS BAGELS ASSISTANT MANAGER, BAND TEACHER [address] [place] [address] documented as of this encounter Results * US BILATERAL CAROTID DUPLEX (03/06/2024 9:58 AM CDT) Anatomical Region Laterality Modality vascular Bilateral Ultrasound 03/09/2024 9:27 AM CDT Impressions 03/09/2024 9:29 AM CDT IMPRESSION: Ratio and velocities correspond to a ??less than 50 ??percent ?? diameter stenosis of the right ICA. Velocities correspond to a ??less than 50 ??percent ??diameter stenosis of the left ICA. Antegrade direction of flow of the bilateral vertebral arteries. REFERENCE: Consensus Panel Levy-Scale and Doppler US Criteria for Diagnosis of ICA Stenosis. No stenosis: ICA PSV <125*, 0 percent plaque, ICA/CCA PSV Ratio <2.0, ICA EDV <40*. <50 percent stenosis: ICA PSV <125*, <50 percent plaque, ICA/CCA PSV Ratio <2.0, ICA EDV <40*. 50-69 percent stenosis: ICA PSV 125-230*, >=50 percent plaque, ICA/CCA PSV Ratio 2.0-4.0, ICA EDV 40-100*. >=70 percent but less than near occlusion >230, >=50 percent plaque, ICA/CAA PSV Ratio >4.0, ICA EDV >100*. *cm/sec Plaque estimate (diameter reduction) with levy-scale and color Doppler US. RSNA 2003 Narrative 03/09/2024 9:29 AM CDT EXAM DESCRIPTION: ?? US BILATERAL CAROTID DUPLEX REASON FOR STUDY: ?? G45.3 ?? TECHNIQUE: Levy scale, color Doppler and spectral Doppler imaging were performed. ??Velocity criteria are extrapolated from diameter as defined by the Society of Radiologists in Ultrasound Consensus Conference. All velocity measurements are in cm/sec. COMPARISON: ?? None FINDINGS: Right: ??Mild intimal thickening and plaque are seen. Distal CCA Peak Systolic Velocity: 121 Distal CCA End Diastolic Velocity: 24 Peak ICA Systolic Velocity: 126 ICA End Diastolic Velocity: 36 Peak ICA/CCA Systolic Ratio: 1.04 Right Vertebral Artery: ??Antegrade direction of flow. Left: ??Mild intimal thickening and plaque are seen. Distal CCA Peak Systolic Velocity: 131 Distal CCA End Diastolic Velocity: 21 Peak ICA Systolic Velocity: 118 ICA End Diastolic Velocity: 22 Peak ICA/CCA Systolic Ratio: 0.9 Left Vertebral Artery: ??Antegrade direction of flow. THIS IS AN ELECTRONICALLY VERIFIED FINAL REPORT 03/09/2024 9:27 AM - Electronically signed by ??Migue Isbell M.D. AG: AG D: ??03/09/2024 9:27 AM T: ??03/09/2024 9:27 AM Report ID: [id number] Reading Location: ??[id number] Procedure Note Migue Isbell MD - 03/09/2024 EXAM DESCRIPTION: US BILATERAL CAROTID DUPLEX REASON FOR STUDY: G45.3 TECHNIQUE: Levy scale, color Doppler and spectral Doppler imaging were performed. Velocity criteria are extrapolated from diameter as defined by the Society of Radiologists in Ultrasound Consensus Conference. All velocity measurements are in cm/sec. COMPARISON: None FINDINGS: Right: Mild intimal thickening and plaque are seen. Distal CCA Peak Systolic Velocity: 121 Distal CCA End Diastolic Velocity: 24 Peak ICA Systolic Velocity: 126 ICA End Diastolic Velocity: 36 Peak ICA/CCA Systolic Ratio: 1.04 Right Vertebral Artery: Antegrade direction of flow. Left: Mild intimal thickening and plaque are seen. Distal CCA Peak Systolic Velocity: 131 Distal CCA End Diastolic Velocity: 21 Peak ICA Systolic Velocity: 118 ICA End Diastolic Velocity: 22 Peak ICA/CCA Systolic Ratio: 0.9 Left Vertebral Artery: Antegrade direction of flow. THIS IS AN ELECTRONICALLY VERIFIED FINAL REPORT 03/09/2024 9:27 AM - Electronically signed by Migue Isbell M.D. AG: CHUN Report ID: [id number] Reading Location: [id number] IMPRESSION: Ratio and velocities correspond to a less than 50 percent diameter stenosis of the right ICA. Velocities correspond to a less than 50 percent diameter stenosis of the left ICA. Antegrade direction of flow of the bilateral vertebral arteries. REFERENCE: Consensus Panel Levy-Scale and Doppler US Criteria for Diagnosis of ICA Stenosis. No stenosis: ICA PSV <125*, 0 percent plaque, ICA/CCA PSV Ratio <2.0, ICA EDV <40*. <50 percent stenosis: ICA PSV <125*, <50 percent plaque, ICA/CCA PSV Ratio <2.0, ICA EDV <40*. 50-69 percent stenosis: ICA PSV 125-230*, >=50 percent plaque, ICA/CCA PSV Ratio 2.0-4.0, ICA EDV 40-100*. >=70 percent but less than near occlusion >230, >=50 percent plaque, ICA/CAA PSV Ratio >4.0, ICA EDV >100*. *cm/sec Plaque estimate (diameter reduction) with levy-scale and color Doppler US. 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
--- OUTSIDE RECORDS SUMMARY | 2024-11-07 05:01 | XMS_ITS | Encounter Summary ---
Author Organization [facility] Address [address] [place] [address] Phone Care Team Providers Care Senior Materials Planner Name Role Phone Deena Beach APRN, CNP Primary Care P rovider Gigi Waters MD Primary Care Provider [phone] Reason for Visit * Reason Comments Medication Refill Encounter Details Date Type Department Care Team (Late st Contact Info) Description 05/18/2021 Refill [facility] On[facility] [address] [place] [address] Ayan Estrada MD [address] [place] [address] Medication Refill Social History Tobacco Use Types [...] encounter Miscellaneous Notes * Telephone Encounter - Hazel Ridley, RN - 05/18/2021 9:44 AM CDT Approved omeprazole refill per last OV note. documented in this encounter Plan of Treatment Upcoming Encounters Date Type Department Care Team (Late st Contact Info) Description 11/08/2024 2:00 PM HARDWOOD FLOOR REFINISHER Office Visit [facility] - Primary Care - [place] [address] [place] [address] Almaz Sin APRN, HVAC SHEET METAL INSTALLER [address] [place] [address] documented as of this encounter Visit Diagnoses Not on filedocumented in this encounter Additional Health Concerns Infection Onset Date Last Indicated Resolved Time COVID - 19 01/09/2024 01/09/2024 01/09/2024 8:39 AM CDT Respiratory Rule-Out 01/09/2024 01/09/2024 024 8:42 AM CDT documented as of this encounter Care Teams Senior Materials Planner Relationship Specialty Start Date End Date Deena Beach, WEB MARKETING MANAGER, HVAC SHEET METAL INSTALLER [address] [place] [address] PCP - General Advanced Practice Nurse 09/24/19 Gigi Waters MD [address] [address] PCP - General Family Medicine 01/24/23 documented as of this encounter
--- OUTSIDE RECORDS SUMMARY | 2024-11-07 05:01 | XMS_ITS | Encounter Summary ---
Author Organization [facility] Care Team Providers Care Compressor Service Technician Name Role Phone Gigi Waters MD Primary Care Provider [phone] Encounter Details Date Type Department Care Team (Latest Contact Info) Description 03/06/2024 Travel Social History Tobacco Use Types Packs/Day [...] st Contact Info) Description 11/08/2024 2:00 PM HIGH DENSITY PRESS LABORER Office Visit [facility] - Primary Care - [place] [address] [place] [phone] Almaz Sin, TECHNICAL SALES REPRESENTATIVE, REVENUE SPECIALIST [address] [place] [address] documented as of this encounter Visit Diagnoses Not on filedocumented in this encounter Care Teams Compressor Service Technician Relationship Specialty Start Date End Date Gigi Waters MD [address] [address] PCP - General Family Medicine 01/24/23 documented as of this encounter
--- OUTSIDE RECORDS SUMMARY | 2024-11-07 05:01 | XMS_ITS | Encounter Summary ---
Author Organization [facility] Address [address] [place] [address] Phone Care Team Providers Care Metal Hardener Name Role Phone Deena Beach APRN, CNP Primary Care P ropauline Encounter Details Date Type Department Care Team (Late Contact Info) Description 01/10/2023 Patient Outreach [facility] Primary Care - [place] [address] [place] [id number] Deena Beach APRN, CNP [address] [place] [address] Social History Tobacco Use Types Packs/Day Years [...] Encounters Date Type Department Care Team (Late Contact Info) Description 11/08/2024 2:00 PM AIRCRAFT MECHANIC ARMAMENT Office Visit [facility] Primary Care - [place] [address] [place] [address] Almaz Sin, ELECTRICAL TRYOUT PERSON, TRACK LAYER [address] [place] [address] documented as of this encounter Visit Diagnoses Not on filedocumented in this encounter Care Teams Metal Hardener Relationship Specialty Start Date End Date Deena Beach APRN, TRACK LAYER [address] [place] [address] PCP - General Advanced Practice Nurse 09/24/19 documented as of this encounter
--- OUTSIDE RECORDS SUMMARY | 2024-11-07 05:01 | XMS_ITS | Encounter Summary ---
Author Organization [facility] Address [address] [place] [address] Phone Care Team Providers Care Lasting Machine Operator Bed Name Role Phone Deena Beach APRN, CNP Primary Care P edgar Encounter Details Date Type Department Care Team (Late st Contact Info) Description 05/18/2021 Telephone [facility] - General Surgery - [place] [address] [phone] Juan Mendez MD #[address] [address] Social History Tobacco Use Types Packs/Day Years [...] encounter Miscellaneous Notes * Telephone Encounter - Danielle Steel CMA - 05/18/2021 11:23 AM CDT [facility] pharmacy faxed over new vaccine administered information to be added to patient's chart. Will be also scanned to patient's chart under Documents. documented in this encounter Plan of Treatment Upcoming Encounters Date Type Department Care Team (Late st Contact Info) Description 11/08/2024 2:00 PM REFINERY OPERATOR VISBREAKING Office Visit [facility] - Primary Care - [place] [address] [place] [address] Almaz Sin APRN, TAPPING MACHINE OPERATOR [address] [place] [address] documented as of this encounter Visit Diagnoses Not on filedocumented in this encounter Care Teams Lasting Machine Operator Bed Relationship Specialty Start Date End Date Deena Beach APRN, TAPPING MACHINE OPERATOR [address] [place] [address] PCP - General Advanced Practice Nurse 09/24/19 documented as of this encounter
--- OUTSIDE RECORDS SUMMARY | 2024-11-07 05:01 | XMS_ITS | Encounter Summary ---
Author Organization [facility] Address [address] [place] [address] Phone Care Team Providers Care Die Cast Engineer Name Role Phone Deena Beach APRN, MYRNA Primary Care P rocandidoder Reason for Visit * Reason Onset Date Comments Results 02/02/2021 Colonoscopy Encounter Details Date Type Department Care Team (Late st Contact Info) Description 02/02/2021 Telephone [facility] - General Surgery - [place] #2 [facility] [address] [place] [address] Joe Callaway, DO 3 [facility] [address] [place] [address] Results (Colonoscopy) Social History Tobacco Use Types Packs/Day Years [...] have Coronavirus / COVID-19? No / Unsure 01/31/2021 2:29 PM CDT documented as of this encounter Miscellaneous Notes * Telephone Encounter - Charlene Sandoval RN - 02/02/2021 12:40 PM CDT Patient notified of results and verbalizes understanding. Health maintenance updated and recall placed. * Telephone Encounter - Charlene Sandoval RN - 02/02/2021 12:39 PM CDT ----- Message from Joe Callaway DO sent at 01/24/2021 8:18 AM CDT ----- Biopsies show no cancer. The polyp in the rectum was close to being cancers. The polyp was completely removed. Recheck colonoscopy 1 year with 2 day preparation documented in this encounter Plan of Treatment Upcoming Encounters Date Type Department Care Team (Late st Contact Info) Description 11/08/2024 2:00 PM DYER AND WASHER Office Visit [facility] - Primary Care - [place] [address] [place] [phone] Almaz Sin APRN, CIGARETTE BOOK MAKER [address] [place] [address] documented as of this encounter Visit Diagnoses Not on filedocumented in this encounter Care Teams Die Cast Engineer Relationship Specialty Start Date End Date Deena Beach APRN, CIGARETTE BOOK MAKER [address] [place] [address] PCP - General Advanced Practice Nurse 09/24/19 documented as of this encounter
--- OUTSIDE RECORDS SUMMARY | 2024-11-07 05:01 | XMS_ITS | Encounter Summary ---
Author Organization [facility] Care Team Providers Care Leak Detector Name Role Phone Deena Beach APRN, SWEEPER CLEANER INDUSTRIAL Primary Care P edgar Encounter Details Date Type Department Care Team (Latest Contact Info) Description 11/23/2020 Travel Social History Tobacco Use Types Packs/Day [...] have Coronavirus / COVID-19? No / Unsure 11/23/2020 9:07 AM BOX SEALING MACHINE CATCHER documented as of this encounter Plan of Treatment Upcoming Encounters Date Type Department Care Team (Late st Contact Info) Description 11/08/2024 2:00 PM BOX SEALING MACHINE CATCHER Office Visit [facility] - Primary Care - [place] [address] [place] [phone] Almaz Sin APRN, SWEEPER CLEANER INDUSTRIAL [address] [place] [address] documented as of this encounter Visit Diagnoses Not on filedocumented in this encounter Care Teams Leak Detector Relationship Specialty Start Date End Date Deena Beach, PRESIDENT CELEBRITY ACQUISTION, SWEEPER CLEANER INDUSTRIAL [address] [place] [address] PCP - General Advanced Practice Nurse 09/24/19 documented as of this encounter
--- OUTSIDE RECORDS SUMMARY | 2024-11-07 05:01 | XMS_ITS | Encounter Summary ---
Author Organization [facility] Address [address] [facility] [place] [address] Phone Care Team Providers Care Supervisor Inspection Room Name Role Phone Deena Beach APRN, CNP Primary Care P edgar Reason for Visit * Reason Comments Follow-up Encounter Details Date Type Department Care Team (Late st Contact Info) Description 12/28/2020 10:30 AM AIRCRAFT AVIONICS TECHNICIAN Office Visit [facility] Oncology Services [address] [place] [id number] Ayan Estrada MD [address] [place] [address] Malignant neoplasm of sigmoid colon (HCC) (Primary Dx); Gastroesophageal reflux disease without esophagitis Discharge Disposition: Discharged to home or Selfcare [...] PM CDT documented as of this encounter Last Filed Vital Signs Vital Sign Reading Time Taken Comments Blood Pressure 118/78 12/28/2020 11:27 AM AIRCRAFT AVIONICS TECHNICIAN Pulse 66 12/28/2020 11:27 AM AIRCRAFT AVIONICS TECHNICIAN Temperature 36.3 ??C (97.4 ??F) 12/28/2020 11:[address] Respiratory Rate 18 12/28/2020 11:27 AM AIRCRAFT AVIONICS TECHNICIAN Oxygen Saturation 97% 12/28/2020 11:27 AM AIRCRAFT AVIONICS TECHNICIAN Inhaled Oxygen Concentration - - Weight 80.5 kg (177 lb 6.4 oz) 12/28/2020 11:27 AM AIRCRAFT AVIONICS TECHNICIAN Height 182.9 cm (6') 12/28/2020 11:27 AM AIRCRAFT AVIONICS TECHNICIAN Body Mass Index 24.06 12/28/2020 11:27 AM AIRCRAFT AVIONICS TECHNICIAN documented in this encounter Progress Notes * Milagros Herring - 12/28/2020 10:30 AM CST Outpatient Hem/Onc Progress Note PROGRESS NOTE Lucian Sosa is a very pleasant 80 y.o. male seen today for follow up of colon cancer. He complains of heartburn, using Mylanta to help relieve symptoms. He denies using Tums, Pepcid, Prilosec, or any other heartburn relief. Robert started Capecitabine on 12/11/20. Robert states that he takes his medication at 9 AM/PM. Upon taking his second dose he experienced severe abdominal bloating, as if itwas going to explode. He was taking 3 and 3 at the time of the severe bloating. He states that he still bloats, just not as bad while taking 2 and 2. He has also been having diarrhea every other day,stating no solid stools. Robert defines diarrhea as 6-7 loose stools per day. He stated prior to starting the Capecitabine his stools were formed, denies constipation. Robert states that his appetite hasdecreased. He reports feeling full all the time. He states that he has been feeling this way prior to his colonoscopy. Denies feeling weak or dizzy related to the diarrhea. He states that when he gets the acid reflux pain it causes him to need to lay down at times. He states that it is debilitatingat times. He states that the acid reflux improved when he cut down to 2 and 2 dose. Robert reports that last night the heart burn flared up around 1 AM. He denies any left arm pain during the acid pains. He states that occasionally these acid reflux episodes cause him heart palpations. DIAGNOSIS/TREATMENT HISTORY: Reviewed patients past medical, surgical, social, and family history. Outpatient Medications Marked as Taking for the 12/28/20 encounter (Office Visit) with Ayan Estrada MD Medication Sig Dispense Refill ??? Acetaminophen (TYLENOL PO) Take by mouth 3 times daily. Indications: 2 tabs TID ??? capecitabine (XELODA) 500 MG Tablet Take 3 Tablets by mouth 2 times daily 84 Tablet 5 ??? diphenhydrAMINE-APAP, sleep, (TYLENOL PM EXTRA STRENGTH PO) Take by mouth nightly. Allergies as of 12/28/2020 ??? (No Known Allergies) REVIEW OF SYSTEMS Review of Systems Constitutional: Positive for malaise/fatigue. Cardiovascular: Positive for palpitations. Gastrointestinal: Positive for diarrhea and heartburn. All other systems reviewed and are negative. Physical Exam Physical Exam PAIN ASSESSMENT: no pain complaints today. DATA: Lab Results Component Value Date WBC 7.10 12/26/2020 RBC 4.23 (L) 12/26/2020 HEMOGLOBIN 13.6 12/26/2020 HEMATOCRIT 41.8 12/26/2020 MCV 98.8 (H) 12/26/2020 MCH 32.2 (H) 12/26/2020 MCHC 32.5 12/26/2020 PLATELETCNT 231 12/26/2020 RDW 13.8 12/26/2020 LYMPHOCYTES 33.7 12/26/2020 RELEOS 3.0 12/26/2020 RELBAS 0.4 12/26/2020 ANC 3.92 12/26/2020 MONOCYTES 0.55 12/26/2020 EOSINOPHILS 0.21 12/26/2020 BASOPHILS 0.03 12/26/2020 Lab Results Component Value Date SODIUM 141 12/26/2020 POTASSIUM 4.9 12/26/2020 CHLORIDE 104 12/26/2020 ANIONGAP 12.9 12/26/2020 GLUCOSE 88 12/26/2020 BUN 20 12/26/2020 CREATININE 0.84 12/26/2020 TOTALPROTEIN 6.8 12/26/2020 ALBUMIN 4.5 12/26/2020 CALCIUM 9.7 12/26/2020 SGPTALT 13 12/26/2020 ALKALINEPHO 88 12/26/2020 ?? CEA LEVELS: 2.3 CEA 10/23/2020 SURGICAL PATHOLOGY: FINAL DIAGNOSIS A. ??Colon, sigmoid tumor resection: ?- ??Colonic adenocarcinoma, moderately differentiated, extending through muscular propria into pericolonic fat, 8 cm in greatest dimension, margins clear. ?- ??Diverticulosis of colon. ?- ??Thirty-three pericolonic lymph nodes negative for tumor (0/33). ?? B. ??Colon, donuts, excision: ?- ??Negative for tumor. at 1509 Addendum Immunohistochemistry method to determine loss of expression or retained expression of DNA mismatch repair proteins (MMR), MLH1, PMS2, MSH2 and MSH6. Result: ??Mismatch repair (MMR) normal. See the scanned report in [facility] for details on methodology and interpretation () performed at [facility]; [place], [place]. Addendum electronically signed by Gentry Rich MD on 11/21/2020 at 1416 DIAGNOSTIC IMAGING STUDIES: CT C/A/P 10/24/2020: IMPRESSION: ? Sigmoid colonic mass as evidence of colon cancer. ?? Numerous small lymph nodes are noted around the sigmoid colon likely representing local metastatic disease. ??The largest lymph node measures approximately 8 mm. ?? No definite liver metastases or lung metastases. Assessment: 1. Stage II pT3pN0 colon cancer-s/p surgical resection 2. Heartburn, secondary to Capecitabine 3. Diarrhea, 6-7 loose stools Plan: 1.Reviewed above clinical data including current clinical symptoms and recent labs with patient. Overall Robert is tolerating the decreased dose of Capcitabine 1000 mg BID with minimal side effects. His blood levels have remained stable during his first cycle of Capcitabine. Reassurance given. Continue taking Capcitabine 1000 mg for disease control. I explained the importance in being complaint in taking this medication. Patient verbalized understanding of clinical data review. 2. Reviewed the side effects of Xeloda with Robert and Sabina. Side effects include acneform rash, low blood counts, increase risk of infection, diarrhea, hand/foot syndrome, and peripheral neuropathy. 3. For the acid reflux, start taking Omeprazole 20 mg in the morning 2 hours before your Capecitabine dose. I explained to Robert that these medications cannot be taken together. 4. For the diarrhea, Robert was instructed to take Imodium to help firm up his stool and prevent dehydration. 5. Continue to follow up with Dr. Mendez for evaluation of surgery sites and colonoscopy once bowelshave healed. Follow up in 4 weeks with labs CBC/CMP 2 days prior The patient was given an opportunity to ask questions, and all questions answered to patient's satisfaction. Patient verbalizes understanding of the plan as outlined above. The documentation for this visit was completed by Milagros Herring acting as a scribe for Ayan Snowden MD. 12/28/2020, 11:42 AM AIRCRAFT AVIONICS TECHNICIAN RAFT AVIONICS TECHNICIAN * Ayan Estrada MD - 12/28/2020 10:30 AM CST Outpatient Hem/Onc Progress Note PROGRESS NOTE Lucian Sosa is a very pleasant 81 y.o. male seen today for follow up of colon cancer. He complains of heartburn, using Mylanta to help relieve symptoms. He denies using Tums, Pepcid, Prilosec, or any other heartburn relief. Robert started Capecitabine on 12/11/20. Robert states that he takes his medication at 9 AM/PM. Upon taking his second dose he experienced severe abdominal bloating, as if itwas going to explode. He was taking 3 and 3 at the time of the severe bloating. He states that he still bloats, just not as bad while taking 2 and 2. He has also been having diarrhea every other day,stating no solid stools. Robert defines diarrhea as 6-7 loose stools per day. He stated prior to starting the Capecitabine his stools were formed, denies constipation. Robert states that his appetite hasdecreased. He reports feeling full all the time. He states that he has been feeling this way prior to his colonoscopy. Denies feeling weak or dizzy related to the diarrhea. He states that when he gets the acid reflux pain it causes him to need to lay down at times. He states that it is debilitatingat times. He states that the acid reflux improved when he cut down to 2 BID dose. Robert reports thatlast night the heart burn flared up around 1 AM. He denies any left arm pain during the acid pains.He states that occasionally these acid reflux episodes cause him heart palpations. DIAGNOSIS/TREATMENT HISTORY: Stage II pT3pN0 colon cancer-s/p surgical resection on 11/13/20. Colonic adenocarcinoma, moderately differentiated, extending through muscular propria into pericolonic fat, 8 cm in greatest dimension,margins clear.Thirty-three pericolonic lymph nodes negative for tumor. MMR normal. Oncotype DX recurrence score came back as 11 which predicts a 12% risk of recurrence of chemo within the next 3 years with surgery alone. This risk is expected to decrease to 7% with adjuvant 5 FU/leucovorin. -- he started adjuvant capecitabine on 12/11/20 Reviewed patients past medical, surgical, social, and family history. Outpatient Medications Marked as Taking for the 12/28/20 encounter (Office Visit) with Ayan Estrada MD Medication Sig Dispense Refill ??? Acetaminophen (TYLENOL PO) Take by mouth 3 times daily. Indications: 2 tabs TID ??? capecitabine (XELODA) 500 MG Tablet Take 3 Tablets by mouth 2 times daily 84 Tablet 5 ??? diphenhydrAMINE-APAP, sleep, (TYLENOL PM EXTRA STRENGTH PO) Take by mouth nightly. Allergies as of 12/28/2020 ??? (No Known Allergies) REVIEW OF SYSTEMS Review of Systems Constitutional: Positive for malaise/fatigue. Cardiovascular: Positive for palpitations. Gastrointestinal: Positive for diarrhea and heartburn. All other systems reviewed and are negative. Physical Exam Physical Exam PAIN ASSESSMENT: no pain complaints today. DATA: Lab Results Component Value Date WBC 4.53 01/29/2021 RBC 3.84 (L) 01/29/2021 HEMOGLOBIN 12.8 (L) 01/29/2021 HEMATOCRIT 39.1 01/29/2021 MCV 101.8 (H) 01/29/2021 MCH 33.3 (H) 01/29/2021 MCHC 32.7 01/29/2021 PLATELETCNT 213 01/29/2021 RDW 16.0 (H) 01/29/2021 LYMPHOCYTES 43.3 01/29/2021 RELEOS 5.7 01/29/2021 RELBAS 0.9 01/29/2021 ANC 1.93 01/29/2021 MONOCYTES 0.34 01/29/2021 EOSINOPHILS 0.26 01/29/2021 BASOPHILS 0.04 01/29/2021 Lab Results Component Value Date SODIUM 141 01/29/2021 POTASSIUM 4.4 01/29/2021 CHLORIDE 105 01/29/2021 ANIONGAP 12.4 01/29/2021 GLUCOSE 110 (H) 01/29/2021 BUN 15 01/29/2021 CREATININE 0.75 (L) 01/29/2021 TOTALPROTEIN 5.9 (L) 01/29/2021 ALBUMIN 3.8 01/29/2021 CALCIUM 9.0 01/29/2021 SGPTALT 10 01/29/2021 ALKALINEPHO 67 01/29/2021 ?? CEA LEVELS: 2.3 CEA 10/23/2020 SURGICAL PATHOLOGY: FINAL DIAGNOSIS A. ??Colon, sigmoid tumor resection: ?- ??Colonic adenocarcinoma, moderately differentiated, extending through muscular propria into pericolonic fat, 8 cm in greatest dimension, margins clear. ?- ??Diverticulosis of colon. ?- ??Thirty-three pericolonic lymph nodes negative for tumor (0/33). ?? B. ??Colon, donuts, excision: ?- ??Negative for tumor. at 1509 Addendum Immunohistochemistry method to determine loss of expression or retained expression of DNA mismatch repair proteins (MMR), MLH1, PMS2, MSH2 and MSH6. Result: ??Mismatch repair (MMR) normal. See the scanned report in [facility] for details on methodology and interpretation () performed at [facility]; [place], [place]. Addendum electronically signed by Gentry Rich MD on 11/21/2020 at 1416 DIAGNOSTIC IMAGING STUDIES: CT C/A/P 10/24/2020: IMPRESSION: ? Sigmoid colonic mass as evidence of colon cancer. ?? Numerous small lymph nodes are noted around the sigmoid colon likely representing local metastatic disease. ??The largest lymph node measures approximately 8 mm. ?? No definite liver metastases or lung metastases. Assessment: 1. Stage II pT3pN0 colon cancer-s/p surgical resection 2. Heartburn and GERD, secondary to Capecitabine 3. Diarrhea, 6-7 loose stools Plan: 1.Reviewed above clinical data including current clinical symptoms and recent labs with patient. Hehad significant GI distress with capecitabine 1500 mg p.o. b.i.d. so we reduced his dose to 1000 mgpo bid. Overall Robert is tolerating the decreased dose of Capcitabine 1000 mg BID with minimal side effects. His blood levels have remained stable during his first cycle of Capcitabine. Reassurance given. Continue taking Capcitabine 1000 mg for disease control. I explained the importance in being complaint in taking this medication. Patient verbalized understanding of clinical data review. 2. Reviewed the side effects of Xeloda with Robert. Side effects include acneform rash, low blood counts, increase risk of infection, diarrhea, hand/foot syndrome, and peripheral neuropathy. 3. For the acid reflux, start taking Omeprazole 20 mg in the morning 2 hours before your Capecitabine dose. I explained to Robert that these medications cannot be taken together. 4. For the diarrhea, Robert was instructed to take Imodium to help firm up his stool and prevent dehydration. 5. Continue to follow up with Dr. Mendez for evaluation of surgery sites and colonoscopy once bowelshave healed. Follow up in 4 weeks with labs CBC/CMP 2 days prior The patient was given an opportunity to ask questions, and all questions answered to patient's satisfaction. Patient verbalizes understanding of the plan as outlined above. The documentation for this visit was completed by Milagros Herring acting as a scribe for Ayan Snowden MD. The documentation recorded by the scribe was completed while in the exam room with me and the patient.?? The documentation accurately reflects the service I personally performed and the decisions made by me. I have confirmed and edited the documentation as necessary. Ayan Estrada MD documented in this encounter Miscellaneous Notes * Interdisciplinary - Fiona Bach RN - 12/28/2020 10:30 AM AIRCRAFT AVIONICS TECHNICIAN Patient here for f/u with Dr Natalie Mehta taken patient denies changes or falls. Medication list reviewed. Patient placed in room for appointment. Patient having diarrhea some days 6-7 times in a day then some days none. Eating and drinking well denies n/v. Patient having reflux at times taking liquid antiacid that resolves the issue. RAFT AVIONICS TECHNICIAN documented in this encounter Plan of Treatment Upcoming Encounters Date Type Department Care Team (Late st Contact Info) Description 11/08/2024 2:00 PM AIRCRAFT AVIONICS TECHNICIAN Office Visit [facility] - Primary Care - [place] [address] [place] [address] Almaz Sin APRN, PARK MAINTENANCE TECHNICIAN [address] [place] [address] documented as of this encounter Visit Diagnoses Diagnosis Malignant neoplasm of sigmoid colon (HCC)- Primary Malignant neoplasm of sigmoid colon Gastroesophageal reflux disease without esophagitis Esophageal reflux documented in this encounter Care Teams Supervisor Inspection Room Relationship Specialty Start Date End Date Deena Beach APRN, PARK MAINTENANCE TECHNICIAN [address] [place] [address] PCP - General Advanced Practice Nurse 09/24/19 documented as of this encounter
--- OUTSIDE RECORDS SUMMARY | 2024-11-07 05:01 | XMS_ITS | Encounter Summary ---
Author Organization [facility] Address [address] [place] [address] Phone Care Team Providers Care Business Intelligence Engineer Name Role Phone Gigi Waters MD Primary Care Provider [phone] Reason for Referral * Radiology Services (Routine) - Closed Specialty Diagnoses / Procedures Referred By Baldemar bui Referred To Contact Radiology Diagnoses Amaurosis fugax Procedures US BILATERAL CAROTID DUPLEX Donna Gomez MD [address] [address] Phone: tel: fax: Referral ID Status Reason Start Date Expiration Date Visits Re quested Visits Authorized [id number] Closed 02/23/2024 1 1 Reason for Visit * Radiology Services (Routine) - Closed Specialty Diagnoses / Procedures Referred By Baldemar bui Referred To Contact Radiology Diagnoses Amaurosis fugax Procedures US BILATERAL CAROTID DUPLEX Donna Gomez MD [address] [facility] [address] [place] [address] Phone: tel: fax: Referral ID Status Reason Start Date Expiration Date Visits Re quested Visits Authorized [id number] Closed 02/23/2024 1 1 Encounter Details Date Type Department Care Team (Latest Contact Info) Description 03/06/2024 9:17 AM CDT - 03/06/2024 11:59 PM CDT Hospital Encounter [facility] Ultrasound [address] [place] [address] Donna Gomez MD [address] [facility] [address] [place] [address] Discharge Disposition: Discharged to home or Selfcare [...] st Contact Info) Description 11/08/2024 2:00 PM CHIEF OF ANESTHESIOLOGY Office Visit [facility] - Primary Care - [place] [address] [place] [address] Almaz Sin, BEHAVIOR THERAPIST, BULK FLUIDS HANDLER [address] [place] [address] documented as of this encounter Procedures Procedure Name Priority Date/Time Associated Diagnosis Comments US BILATERAL CAROTID DUPLEX Routine 03/06/2024 9:58 AM CDT Amaurosis fugax documented in this encounter Results * US BILATERAL CAROTID [...] Electronically signed by ??Migue Isbell M.D. AG: CHUN D: ??03/09/2024 9:27 AM T: ??03/09/2024 9:27 AM Report ID: [id number] Reading Location: ??[id number] Procedure Note Migue Isbell MD - 03/09/2024 [...] Migue Isbell M.D. AG: CHUN Report ID: [id number] Reading Location: [id number] IMPRESSION: Ratio and velocities correspond to a [...] US. RSNA 2002 us Donna Gomez MD [facility] US ORDERABLES Final Result documented in this encounter Visit Diagnoses Diagnosis Amaurosis fugax Transient arterial occlusion of retina documented in this encounter Care Teams Business Intelligence Engineer Relationship Specialty Start Date End Date Gigi Waters MD [address] [address] PCP - General Family Medicine 01/24/23 documented as of this encounter
--- OUTSIDE RECORDS SUMMARY | 2024-11-07 05:01 | XMS_ITS | Encounter Summary ---
Author Organization [facility] Care Team Providers Care Monomer Purification Operator Name Role Phone Deena Beach APRN, RF TECHNICIAN Primary Care P edgar Encounter Details Date Type Department Care Team (Latest Contact Info) Description 06/27/2021 Travel Social History Tobacco Use Types Packs/Day [...] have Coronavirus / COVID-19? No / Unsure 06/27/2021 12:22 PM CDT documented as of this encounter Plan of Treatment Upcoming Encounters Date Type Department Care Team (Late st Contact Info) Description 11/08/2024 2:00 PM CATCH BASIN CLEANER Office Visit [facility] - Primary Care - [place] [address] [place] [phone] Almaz Sin APRN, RF TECHNICIAN [address] [place] [address] documented as of this encounter Visit Diagnoses Not on filedocumented in this encounter Care Teams Monomer Purification Operator Relationship Specialty Start Date End Date Deena Beach, HOUSE SUPERVISOR, RF TECHNICIAN [address] [place] [address] PCP - General Advanced Practice Nurse 09/24/19 documented as of this encounter
--- OUTSIDE RECORDS SUMMARY | 2024-11-07 05:01 | XMS_ITS | Encounter Summary ---
Author Organization [facility] HealthCare Address [address] [facility] [place] [address] Phone Care Team Providers Care Construction Trades Teacher Name Role Phone Deena Beach APRN, CNP Primary Care P edgar Reason for Visit * Reason Comments Follow-up Encounter Details Date Type Department Care Team (Late st Contact Info) Description 06/28/2021 11:40 AM CDT Office Visit [facility] Oncology Services [address] [place] [id number] Ayan Estrada MD [address] [place] [address] Malignant neoplasm of sigmoid colon (HCC) (Primary Dx) Discharge Disposition: Discharged to home or Selfcare [...] Sign Reading Time Taken Comments Blood Pressure 134/67 06/28/2021 11:25 AM CDT Pulse 71 06/28/2021 11:25 AM CDT Temperature 36.9 ??C (98.5 ??F) 06/28/2021 1 1:25 AM CDT Respiratory Rate 18 06/28/2021 11:2 5 AM CDT Oxygen Saturation 95% 06/28/2021 11: 25 AM CDT Inhaled Oxygen Concentration - - Weight 79.2 kg (174 lb 11.2 oz) 021 11:25 AM CDT Height 182.9 cm (6') 06/28/2021 11:25 AM CDT Body Mass Index 23.69 06/28/2021 11:25 AM CDT documented in this encounter Progress Notes * Milagros Herring - 06/28/2021 11:40 AM CDT Outpatient Hem/Onc Progress Note PROGRESS NOTE Lucian Sosa is a 81 y.o. male seen today to review recent CT Abdomen related to colon cancer.Robert completed his last cycle of Capecitabine on 05/31/21. Patient reports improvement in heartburn since discontinuing treatment. He reports an improvement in diarrhea, noting solid stool. Patient reports a decline in energy level, noting a lot of things on his plate. Robert's last complete colonoscopy was on 01/22/[address] Callaway. It was not completed prior to or at time of surgery given the bowel obstruction noted. Dr. Callaway removed multiple polyps from the ascending colon, hepatic flexure, and rectum. Patient will be due for a repeat colonoscopy on 01/22/22. DIAGNOSIS/TREATMENT HISTORY: Stage II pT3pN0 colon cancer --s/p surgical resection on 11/13/20. --adjuvant capecitabine started on 12/11/20 --adjuvant capecitabine completed on 05/31/21 Reviewed patients past medical, surgical, social, and family history. Outpatient Medications Marked as Taking for the 06/28/21 encounter (Office Visit) with Ayan Estrada MD Medication Sig Dispense Refill ??? Acetaminophen (TYLENOL PO) Take by mouth 3 times daily. Indications: 2 tabs TID ??? diphenhydrAMINE-APAP, sleep, (TYLENOL PM EXTRA STRENGTH PO) Take by mouth nightly. ??? omeprazole (PriLOSEC) 20 MG CAPSULE DELAYED RELEASE TAKE 1 CAPSULE BY MOUTH EVERY DAY IN THE MORNING BEFORE BREAKFAST 30 Capsule 3 Allergies as of 06/28/2021 ??? (No Known Allergies) REVIEW OF SYSTEMS Review of Systems Constitutional: Positive for malaise/fatigue. Respiratory: Negative for shortness of breath. Gastrointestinal: Negative for constipation, diarrhea and heartburn. Musculoskeletal: Positive for joint pain (right arm/shoulder). Physical Exam Physical Exam PAIN ASSESSMENT: Robert complains of right arm/shoulder pain, rating it 2/10. He reports using OTC Tylenol to help improve symptom. DATA: Lab Results Component Value Date WBC 4.89 06/27/2021 RBC 3.50 (L) 06/27/2021 HEMOGLOBIN 12.0 (L) 06/27/2021 HEMATOCRIT 37.0 (L) 06/27/2021 MCV 105.7 (H) 06/27/2021 MCH 34.3 (H) 06/27/2021 MCHC 32.4 06/27/2021 PLATELETCNT 244 06/27/2021 RDW 16.1 (H) 06/27/2021 LYMPHOCYTES 38.9 06/27/2021 RELEOS 5.7 06/27/2021 RELBAS 0.6 06/27/2021 ANC 2.29 06/27/2021 MONOCYTES 0.39 06/27/2021 EOSINOPHILS 0.28 06/27/2021 BASOPHILS 0.03 06/27/2021 Lab Results Component Value Date SODIUM 139 06/27/2021 POTASSIUM 4.4 06/27/2021 CHLORIDE 105 06/27/2021 ANIONGAP 14.4 06/27/2021 GLUCOSE 103 (H) 06/27/2021 BUN 18 06/27/2021 CREATININE 0.68 (L) 06/27/2021 TOTALPROTEIN 6.7 06/27/2021 ALBUMIN 4.4 06/27/2021 CALCIUM 9.0 06/27/2021 SGPTALT 7 06/27/2021 ALKALINEPHO 84 06/27/2021 DIAGNOSTIC IMAGING STUDIES: 06/22/21 CT C/A/P: IMPRESSION: 1. Postsurgical changes related to partial colectomy with anastomosis at the region of the distal sigmoid. No evidence of local recurrence. Scattered nodes are present, measuring less than 1 cm in short axis dimension. ?? 2. 1.5 cm right adrenal nodule and subcentimeter left adrenal nodule, both indeterminate but stable compared to the prior examination. ?? 3. No definite metastatic disease within the chest. ?? 4. Hepatic cysts, stable. There is a focus of enhancement within the posteromedial right lobe of the liver which could reflect a vascular variant, incompletely characterized on this single phase postcontrast study. Lesion appears similar to the prior examination from September 2020. Multiphase imaging with CT or MRI can be utilized for further characterization. ?? 5. Additional findings as above. Assessment: 1. Stage II pT3pN0 colon cancer-s/p surgical resection. -adjuvant capecitabine started on 12/11/20 -adjuvant capecitabine completed on 05/31/21 Plan: 1.Reviewed above clinical data including current clinical symptoms, recent labs, and recent CT C/A/P with patient. CT was negative for any new concerns. Robert reports improvement in side effects related to the Capecitabine. We will continue to monitor Patient verbalized understanding of clinical data review. 2. Due for colonoscopy on 01/22/2022 3. For the cracks Robert has on his hands, instructed him to use a thick lotion or ointment like Vaseline to keep his hands moist. I also instructed him to wear gloves at night to help aide in the moisturizing of the skin. The patient was given an opportunity to ask questions, and all questions answered to patient's satisfaction. Patient verbalizes understanding of the plan as outlined above. The documentation for this visit was completed by Milagros Herring acting as a scribe for Ayan Snowden MD. 06/28/2021, 11:46 AM CDT * Ayan Estrada MD - 06/28/2021 11:40 AM CDT Outpatient Hem/Onc Progress Note PROGRESS NOTE Lucian Sosa is a 81 y.o. male seen today to review recent CT Abdomen related to colon cancer.Robert completed his last cycle of Capecitabine on 05/31/21. Patient reports improvement in heartburn since discontinuing treatment. He reports an improvement in diarrhea, noting solid stool. Patient reports a decline in energy level, noting a lot of things on his plate. Robert's last complete colonoscopy was on 01/22/[address] Callaway. It was not completed prior to or at time of surgery given the bowel obstruction noted. Dr. Callaway removed multiple polyps from the ascending colon, hepatic flexure, and rectum. Patient will be due for a repeat colonoscopy on 01/22/22. DIAGNOSIS/TREATMENT HISTORY: Stage II pT3pN0 colon cancer --s/p surgical resection on 11/13/20. --adjuvant capecitabine started on 12/11/20 --adjuvant capecitabine completed on 05/31/21 Reviewed patients past medical, surgical, social, and family history. Outpatient Medications Marked as Taking for the 06/28/21 encounter (Office Visit) with Ayan Estrada MD Medication Sig Dispense Refill ??? Acetaminophen (TYLENOL PO) Take by mouth 3 times daily. Indications: 2 tabs TID ??? diphenhydrAMINE-APAP, sleep, (TYLENOL PM EXTRA STRENGTH PO) Take by mouth nightly. Allergies as of 06/28/2021 ??? (No Known Allergies) REVIEW OF SYSTEMS Review of Systems Constitutional: Positive for malaise/fatigue. Respiratory: Negative for shortness of breath. Gastrointestinal: Negative for constipation, diarrhea and heartburn. Musculoskeletal: Positive for joint pain (right arm/shoulder). Physical Exam Physical Exam PAIN ASSESSMENT: Robert complains of right arm/shoulder pain, rating it 2/10. He reports using OTC Tylenol to help improve symptom. DATA: Lab Results Component Value Date WBC 4.89 06/27/2021 RBC 3.50 (L) 06/27/2021 HEMOGLOBIN 12.0 (L) 06/27/2021 HEMATOCRIT 37.0 (L) 06/27/2021 MCV 105.7 (H) 06/27/2021 MCH 34.3 (H) 06/27/2021 MCHC 32.4 06/27/2021 PLATELETCNT 244 06/27/2021 RDW 16.1 (H) 06/27/2021 LYMPHOCYTES 38.9 06/27/2021 RELEOS 5.7 06/27/2021 RELBAS 0.6 06/27/2021 ANC 2.29 06/27/2021 MONOCYTES 0.39 06/27/2021 EOSINOPHILS 0.28 06/27/2021 BASOPHILS 0.03 06/27/2021 Lab Results Component Value Date SODIUM 139 06/27/2021 POTASSIUM 4.4 06/27/2021 CHLORIDE 105 06/27/2021 ANIONGAP 14.4 06/27/2021 GLUCOSE 103 (H) 06/27/2021 BUN 18 06/27/2021 CREATININE 0.68 (L) 06/27/2021 TOTALPROTEIN 6.7 06/27/2021 ALBUMIN 4.4 06/27/2021 CALCIUM 9.0 06/27/2021 SGPTALT 7 06/27/2021 ALKALINEPHO 84 06/27/2021 DIAGNOSTIC IMAGING STUDIES: 06/22/21 CT C/A/P: IMPRESSION: 1. Postsurgical changes related to partial colectomy with anastomosis at the region of the distal sigmoid. No evidence of local recurrence. Scattered nodes are present, measuring less than 1 cm in short axis dimension. ?? 2. 1.5 cm right adrenal nodule and subcentimeter left adrenal nodule, both indeterminate but stable compared to the prior examination. ?? 3. No definite metastatic disease within the chest. ?? 4. Hepatic cysts, stable. There is a focus of enhancement within the posteromedial right lobe of the liver which could reflect a vascular variant, incompletely characterized on this single phase postcontrast study. Lesion appears similar to the prior examination from September 2020. Multiphase imaging with CT or MRI can be utilized for further characterization. ?? 5. Additional findings as above. Assessment: 1. Stage II pT3pN0 colon cancer-s/p surgical resection. -adjuvant capecitabine started on 12/11/20 -adjuvant capecitabine completed on 05/31/21 Plan: 1.Reviewed above clinical data including current clinical symptoms, recent labs, and recent CT C/A/P with patient. CT was negative for any new concerns. Robert reports improvement in side effects related to the Capecitabine. We will continue to monitor Patient verbalized understanding of clinical data review. 2. Due for colonoscopy on 01/22/2022 3. For the cracks Robert has on his hands, instructed him to use a thick lotion or ointment like Vaseline to keep his hands moist. I also instructed him to wear gloves at night to help aide in the moisturizing of the skin. FU in 3 months with labs The patient was given an opportunity to [...] this encounter Miscellaneous Notes * Interdisciplinary - Hermelinda Blanco - 06/28/2021 11:40 AM CDT The patient has complaints of slight pain in his right shoulder/arm. Pain score is 2/10. documented in this encounter Plan of Treatment Upcoming Encounters Date Type Department Care Team (Late st Contact Info) Description 11/08/2024 2:00 PM TRANSITION LEAD Office Visit [facility] - [place] [address] [place] [address] Almaz Sin, ELECTRIC METER TECHNICIAN, [employer]IN[employer] ENGINE FIRER [address] [place] [address] Scheduled Orders Name Type Priority Associated Diagnoses Orde r Schedule COMPLETE BLOOD COUNT (CBC) WITH DIFF Lab Routine Malignant neoplasm of sigmoid colon (HCC) Expected: 08/28/2021, Expires: 03/28/2022 CMP (COMPREHENSIVE METABOLIC PANEL) Lab Routine Malignant neoplasm of sigmoid colon (HCC) Expected: 08/28/2021, Expires: 03/28/2022 CARCINOEMBRYONIC ANTIGEN (CEA) Lab Routine Malignant neoplasm of sigmoid colon (HCC) Expected: 08/28/2021, Expires: 03/28/2022 documented as of this encounter Visit Diagnoses Diagnosis Malignant neoplasm of sigmoid colon (HCC)- Primary Malignant neoplasm of sigmoid colon documented in this encounter Care Teams Construction Trades Teacher Relationship Specialty Start Date End Date Deena Beach APRN, DINKEY ENGINE FIRER [address] [place] [address] PCP - General Advanced Practice Nurse 09/24/19 documented as of this encounter
--- OUTSIDE RECORDS SUMMARY | 2024-11-07 05:01 | XMS_ITS | Encounter Summary ---
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 144 mmol/L 03/14/2021 1:45 PM CDT [facility] POTASSIUM 4.8 3.5 - 5.1 mmol/L 03/14/2021 1:45 PM CDT [facility] CHLORIDE 107 100 - 110 mmol/L 03/14/2021 1:45 PM CDT [facility] CO2, VENOUS 27 22 - 32 mmol/L 03/14/2021 1:45 PM CDT [facility] ANION GAP 10.8 8.0 - 20.0 mmol/L 03/14/2021 1:45 PM CDT [facility] GLUCOSE 97 70 - 99 mg/dL 03/14/2021 1:45 PM CDT [facility] BUN 14 8 - 23 mg/dL 03/14/2021 1:45 PM T [facility] CREATININE, BLOOD 0.69(L) 0.80 - 1.30 mg/dL 03/14/2021 1:45 PM CDT [facility] BUN/CREATININE RATIO 20 12 - 20 ratio 03/14/2021 1:45 PM CDT [facility] TOTAL PROTEIN 6.5 6.0 - 8.3 g/dL 03/14/2021 1:45 PM T [facility] ALBUMIN 4.0 3.5 - 5.2 g/dL 03/14/2021 1:45 PM T [facility] Comment: The colormetric methods used for the determination of Albumin may lead to falsely elevated test results in patients suffering from renal failure or insufficiency due to interference with other proteins. A/G RATIO 1.6 1.0 - 2.0 03/14/2021 1:45 PM CDT [facility] CALCIUM 9.0 8.9 - 10.3 mg/dL 03/14/2021 1:45 PM T [facility] T BILI 0.3 <=1.2 mg/dL 03/14/2021 1:45 PM CDT [facility] SGOT (AST) 14 <=40 U/L 03/14/2021 1:45 PM CDT [facility] SGPT (ALT) 9 <=41 U/L 03/14/2021 1:45 PM CDT [facility] ALKALINE PHOSPHATASE 78 40 - 130 U/L 03/14/2021 1:45 PM CDT [facility] GFR, EST. NONAFRICAN >60 >=60 03/14/2021 1:45 PM CDT [facility] GFR, EST. >60 >=60 021 1:45 PM CDT [facility] Comment: Creatinine Clearance is the preferred criteria for selecting drug dose adjustments in renally impaired patients. ??The GFR is provided as additional pertinent clinical information. GFR is reported in mL/min/1.73 sq m. IS THE PATIENT REQUIRED TO BE FASTING? No 03/14/2021 1:45 PM CDT [facility] Blood Venipuncture / Unknown 03/14/2021 11:55 AM CDT 03/14/2021 11:55 AM CDT us Ayan Estrada MD CHEMISTRY ORDERABLES Fin al Result [facility] [address] [place] [address] * (ABNORMAL) CMP (COMPREHENSIVE METABOLIC PANEL) (01/29/2021 9:48 AM CDT) SODIUM 141 136 - 144 mmol/L 01/29/2021 11:03 AM CDT [facility] POTASSIUM 4.4 3.5 - 5.1 mmol/L 01/29/2021 11:03 AM CDT [facility] CHLORIDE 105 100 - 110 mmol/L 01/29/2021 11:03 AM CDT [facility] CO2, VENOUS 28 22 - 32 mmol/L 01/29/2021 11:03 AM CDT [facility] ANION GAP 12.4 8.0 - 20.0 mmol/L 01/29/2021 11:03 AM CDT [facility] GLUCOSE 110(H) 70 - 99 mg/dL 01/29/2021 11:03 AM CDT [facility] BUN 15 8 - 23 mg/dL 01/29/2021 11:03 AM CDT [facility] CREATININE, BLOOD 0.75(L) 0.80 - 1.30 mg/dL 01/29/2021 11:03 AM CDT [facility] BUN/CREATININE RATIO 20 12 - 20 ratio 01/29/2021 11:03 AM [facility] TOTAL PROTEIN 5.9(L) 6.0 - 8.3 g/dL 01/29/2021 11:03 AM [facility] ALBUMIN 3.8 3.5 - 5.2 g/dL 01/29/2021 11:03 AM [facility] Comment: The colormetric methods used for the determination of Albumin may lead to falsely elevated test results in patients suffering from renal failure or insufficiency due to interference with other proteins. A/G RATIO 1.8 1.0 - 2.0 01/29/2021 11:03 AM [facility] CALCIUM 9.0 8.9 - 10.3 mg/dL 01/29/2021 11:03 AM [facility] T BILI 0.4 <=1.2 mg/dL 01/29/2021 11:03 AM [facility] SGOT (AST) 16 <=40 U/L 01/29/2021 11:03 AM [facility] SGPT (ALT) 10 <=41 U/L 01/29/2021 11:03 AM [facility] ALKALINE PHOSPHATASE 67 40 - 130 U/L 01/29/2021 11:03 AM [facility] GFR, EST. NONAFRICAN >60 >=60 01/29/2021 11:03 AM [facility] GFR, EST. >60 >=60 021 11:03 AM [facility] Comment: Creatinine Clearance is the preferred criteria for selecting drug dose adjustments in renally impaired patients. ??The GFR is provided as additional pertinent clinical information. GFR is reported in mL/min/1.73 sq m. IS THE PATIENT REQUIRED TO BE FASTING? Yes 01/29/2021 11:03 AM [facility] Blood Venipuncture / Unknown 01/29/2021 9:48 AM CDT 01/29/2021 10:38 AM CDT us Ayan Estrada MD CHEMISTRY ORDERABLES Fin al Result [facility] [address] [place] [address] * (ABNORMAL) CMP (COMPREHENSIVE METABOLIC PANEL) (12/26/2020 11:44 AM BUTANE COMPRESSOR OPERATOR) SODIUM 141 136 - 144 mmol/L 12/26/2020 2:44 PM BUTANE COMPRESSOR OPERATOR [facility] POTASSIUM 4.9 3.5 - 5.1 mmol/L 12/26/2020 2:44 PM [facility] CHLORIDE 104 100 - 110 mmol/L 12/26/2020 2:44 PM [facility] CO2, VENOUS 29 22 - 32 mmol/L 12/26/2020 2:44 PM [facility] ANION GAP 12.9 8.0 - 20.0 mmol/L 12/26/2020 2:44 PM BUTANE COMPRESSOR OPERATOR [facility] GLUCOSE 88 70 - 99 mg/dL 12/26/2020 2:44 PM [facility] BUN 20 8 - 23 mg/dL 12/26/2020 2:44 PM [facility] CREATININE, BLOOD 0.84 0.80 - 1.30 mg/dL 12/26/2020 2:44 PM [facility] BUN/CREATININE RATIO 24(H) 12 - 20 ratio 12/26/2020 2:44 PM [facility] TOTAL PROTEIN 6.8 6.0 - 8.3 g/dL 12/26/2020 2:44 PM [facility] ALBUMIN 4.5 3.5 - 5.2 g/dL 12/26/2020 2:44 PM [facility] Comment: The colormetric methods used for the determination of Albumin may lead to falsely elevated test results in patients suffering from renal failure or insufficiency due to interference with other proteins. A/G RATIO 2.0 1.0 - 2.0 12/26/2020 2:44 PM BUTANE COMPRESSOR OPERATOR [facility] CALCIUM 9.7 8.9 - 10.3 mg/dL 12/26/2020 2:44 PM BUTANE COMPRESSOR OPERATOR [facility] T BILI 0.3 <=1.2 mg/dL 12/26/2020 2:44 PM BUTANE COMPRESSOR OPERATOR [facility] SGOT (AST) 16 <=40 U/L 12/26/2020 2:44 PM BUTANE COMPRESSOR OPERATOR [facility] SGPT (ALT) 13 <=41 U/L 12/26/2020 2:44 PM BUTANE COMPRESSOR OPERATOR [facility] ALKALINE PHOSPHATASE 88 40 - 130 U/L 12/26/2020 2:44 PM BUTANE COMPRESSOR OPERATOR [facility] GFR, EST. NONAFRICAN >60 >=60 12/26/2020 2:44 PM BUTANE COMPRESSOR OPERATOR [facility] GFR, EST. >60 >=60 2:44 PM BUTANE COMPRESSOR OPERATOR [facility] Comment: Creatinine Clearance is the preferred criteria for selecting drug dose adjustments in renally impaired patients. ??The GFR is provided as additional pertinent clinical information. GFR is reported in mL/min/1.73 sq m. IS THE PATIENT REQUIRED TO BE FASTING? No 12/26/2020 2:44 PM BUTANE COMPRESSOR OPERATOR [facility] Blood Venipuncture / Unknown 12/26/2020 11:44 AM BUTANE COMPRESSOR OPERATOR 12/26/2020 12:48 PM BUTANE COMPRESSOR OPERATOR [facility] Niki Estrada MD CHEMISTRY ORDERABLES Fin al Result [facility] [address] [place] [address] documented in this encounter Visit Diagnoses Diagnosis S/P laparoscopic colectomy- Primary Other postprocedural status Malignant neoplasm of sigmoid colon (HCC) Malignant neoplasm of sigmoid colon documented in this encounter Care Teams Halftone Operator Relationship Specialty Start Date End Date Deena Beach, INKER, ASSEMBLY LEADER [address] [place] [address] PCP - General Advanced Practice Nurse 09/24/19 documented as of this encounter
--- OUTSIDE RECORDS SUMMARY | 2024-11-07 05:01 | XMS_ITS | Encounter Summary ---
Author Organization [facility] Care Team Providers Care Rod Piler Name Role Phone Deena Beach APRN, REPAIRER EVAPORATOR Primary Care P edgar Encounter Details Date Type Department Care Team (Latest Contact Info) Description 06/22/2021 Travel Social History Tobacco Use Types Packs/Day [...] st Contact Info) Description 11/08/2024 2:00 PM CASE LINER Office Visit [facility] - Primary Care - [place] [address] [place] [phone] Almaz Sin APRN, REPAIRER EVAPORATOR [address] [place] [address] documented as of this encounter Visit Diagnoses Not on filedocumented in this encounter Care Teams Rod Piler Relationship Specialty Start Date End Date Deena Beach, AVIATION NEUROPSYCHOLOGIST, REPAIRER EVAPORATOR [address] [place] [address] PCP - General Advanced Practice Nurse 09/24/19 documented as of this encounter
--- OUTSIDE RECORDS SUMMARY | 2024-11-07 05:01 | XMS_ITS | Encounter Summary ---
Author Organization [facility] Care Team Providers Care Black And White Printer Operator Name Role Phone Deena Beach APRN, HUMAN RESOURCE STATISTICIAN Primary Care P edgar Encounter Details Date Type Department Care Team (Latest Contact Info) Description 12/28/2020 Travel Social History Tobacco Use Types Packs/Day [...] COVID-19? No / Unsure 12/28/2020 11:08 AM RHINESTONE SETTER documented as of this encounter Plan of Treatment Upcoming Encounters Date Type Department Care Team (Late st Contact Info) Description 11/08/2024 2:00 PM RHINESTONE SETTER Office Visit [facility] - Primary Care - [place] [address] [place] [phone] Almaz Sin APRN, HUMAN RESOURCE STATISTICIAN [address] [place] [address] documented as of this encounter Visit Diagnoses Not on filedocumented in this encounter Care Teams Black And White Printer Operator Relationship Specialty Start Date End Date Deena Beach, NURSING INFORMATION SYSTEMS COORDINATOR, HUMAN RESOURCE STATISTICIAN [address] [place] [address] PCP - General Advanced Practice Nurse 09/24/19 documented as of this encounter
--- OUTSIDE RECORDS SUMMARY | 2024-11-07 05:01 | XMS_ITS | Encounter Summary ---
Author Organization [facility] Care Team Providers Care Stoker Erector And Servicer Name Role Phone Deena Beach APRN, REAL PROPERTY EVALUATOR Primary Care P edgar Encounter Details Date Type Department Care Team (Latest Contact Info) Description 01/16/2021 Travel Social History Tobacco Use Types Packs/Day [...] Contact Info) Description 11/08/2024 2:00 PM CHIEF DESIGN BRANCH Office Visit [facility] - Primary Care - [place] [address] [place] [phone] Almaz Sin APRN, REAL PROPERTY EVALUATOR [address] [place] [address] documented as of this encounter Visit Diagnoses Not on filedocumented in this encounter Care Teams Stoker Erector And Servicer Relationship Specialty Start Date End Date eDena Beach, LEAD CARE MANAGER, REAL PROPERTY EVALUATOR [address] [place] [address] PCP - General Advanced Practice Nurse 09/24/19 documented as of this encounter
--- OUTSIDE RECORDS SUMMARY | 2024-11-07 05:01 | XMS_ITS | Encounter Summary ---
Author Organization [facility] Address [address] [place] [address] Phone Care Team Providers Care Art Critic Name Role Phone Deena Beach APRN, CNP Primary Care P rovider Gigi Waters MD Primary Care Provider [phone] Encounter Details Date Type Department Care Team (Late st Contact Info) Description 04/26/2021 Telephone [facility] Oncology Services [address] [place] [phone] Ayan Estrada MD [address] [place] [address] Social History Tobacco Use Types Packs/Day Years [...] st Contact Info) Description 11/08/2024 2:00 PM GARDENING INSTRUCTOR Office Visit [facility] - Primary Care - [place] [address] [place] [phone] Almaz Sin APRN, PUBLIC HOUSING INTERVIEWER [address] [place] [address] documented as of this encounter Visit Diagnoses Not on filedocumented in this encounter Additional Health Concerns Infection Onset Date Last Indicated Resolved Time COVID - 19 01/09/2024 01/09/2024 01/09/2024 8:39 AM CDT Respiratory Rule-Out 01/09/2024 01/09/2024 024 8:42 AM CDT documented as of this encounter Care Teams Art Critic Relationship Specialty Start Date End Date Deena Beach APRN, PUBLIC HOUSING INTERVIEWER [address] [place] [address] PCP - General Advanced Practice Nurse 09/24/19 Gigi Waters MD [address] [address] PCP - General Family Medicine 01/24/23 documented as of this encounter
--- OUTSIDE RECORDS SUMMARY | 2024-11-07 05:01 | XMS_ITS | Encounter Summary ---
Author Organization [facility] Address [address] [place] [address] Phone Care Team Providers Care Project Development Coordinator Name Role Phone Deena Beach APRN, MYRNA Primary Care P edgar Reason for Visit * Reason Comments Surgical Follow-up f/u lap low anterior colon resection Encounter Details Date Type Department Care Team (Late st Contact Info) Description 11/28/2020 8:30 AM CONVEYOR TENDER Office Visit [facility] - General Surgery - [place] [address] [phone] Juan Mendez MD [address] [address] S/P laparoscopic colectomy (Primary Dx); Malignant neoplasm [...] COVID-19? 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 Callaway. Another 2 weeks of no heavy lifting greater than 20 lb. On Gordillo's Day, can advance activity slowly as tolerated. Come back and see me as needed SUBJECTIVE: Lucian Sosa is a 80 y.o. male who is status post laparoscopic low anterior resection for distal sigmoid colon cancer on 11/13/2020 for T3 N0 cancer. He is here in follow-up. He states he is doing well. Has a little bit of pressure in his rectum a day before yesterday of a bowel movement and then he will go the next day. Told him this is normal and should get better over the next month or 2.He is otherwise eating, drinking, passing gas, having bowel function. No fevers or chills. Not taking any pain medication. Able to shower and walk around. He saw Dr. Estrada when he is going to get the Xeloda starting 2 weeks. He still needs a completion colonoscopy and therefore I will send him back to Dr. Callaway to get this done in December. OBJECTIVE: Pulse 64 Temp (!) 95.9 ??F (35.5 ??C) (Tympanic) Wt 177 lb (80.3 kg) SpO2 98% BMI 24.01 kg/m?? No intake/output data recorded. Gen: nad Inc: c/d/i Abd: s/min t/nd EYOR TENDER documented in this encounter Plan of Treatment Upcoming Encounters Date Type Department Care Team (Late st Contact Info) Description 11/08/2024 2:00 PM CONVEYOR TENDER Office Visit [facility] - Primary Care - [place] [address] [place] [phone] Almaz Sin APRN, COLLISION CENTER MANAGER [address] [place] [address] documented as of this encounter Visit Diagnoses Diagnosis S/P laparoscopic colectomy- Primary Other postprocedural status Malignant neoplasm of sigmoid colon (HCC) Malignant neoplasm of sigmoid colon documented in this encounter Care Teams Project Development Coordinator Relationship Specialty Start Date End Date Deena Beach APRN, COLLISION CENTER MANAGER [address] [place] [address] PCP - General Advanced Practice Nurse 09/24/19 documented as of this encounter
--- OUTSIDE RECORDS SUMMARY | 2024-11-07 05:01 | XMS_ITS | Encounter Summary ---
Author Organization [facility] Address [address] [place] [address] Phone Care Team Providers Care Setup Technician Name Role Phone Deena Beach APRN, CNP Primary Care P edgar Reason for Visit * Reason Comments Follow-up Encounter Details Date Type Department Care Team (Late st Contact Info) Description 03/20/2021 2:20 PM CDT Office Visit [facility] On[facility] [address] [place] [id number] Ayan Estrada MD [address] [place] [address] Malignant neoplasm of sigmoid colon (HCC) (Primary [...] Sign Reading Time Taken Comments Blood Pressure 132/80 03/20/2021 2:30 PM CDT Pulse 82 03/20/2021 2:30 PM CDT Temperature 36.8 ??C (98.3 ??F) 03/20/2021 2:30 PM CD T Respiratory Rate 18 03/20/2021 2:30 PM CDT Oxygen Saturation 95% 03/20/2021 2:30 PM CDT Inhaled Oxygen Concentration - - Weight 76.8 kg (169 lb 6.4 oz) 03/20/2021 2:30 P M CDT Height 182.9 cm (6') 03/20/2021 2:30 PM CDT Body Mass Index 22.97 03/20/2021 2:30 PM CDT documented in this encounter Progress Notes * Milagros Herring - 03/20/2021 2:20 PM CDT Outpatient Hem/Onc Progress Note PROGRESS NOTE Lucian Sosa is a very pleasant 81 y.o. male seen today for follow up of colon cancer. Robert reports that he is currently taking Capcitabine 1000 mg BID. Patient denies trying to increase the dose to 1500 mg BID. Robert reports that he is still experiencing occasional acute heart burn related to the medication. He reports that his diarrhea has resolved, noting a bowel movement every 1-2 days. He reports that he does not eat much during the day, positive for weight loss. 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 He denies getting hungry while he is working, noting his mind is too busy to think about eating. Robert reports eating a 9 inch length rice krispie bar for breakfast with tea. He reports that for dinner he eats a box dinner of [place] sliders that he microwaves. He reports eating cookies with his cats prior to going to bed. Robert reports this is his usual eating pattern, noting increase eating during the rainy times and winter. He reports loosing weight in the summer due to increased work to be done. Robert reports he still has a callus on the medial side of his le ft foot. He notes that when his shoe rubs the corn it causes him pain. He denies any abdominal pain Robert underwent a colonoscopy with Dr. Callaway on 01/22/21 at [facility]. Dr. Callaway removed 6 benign polyps. Surgical changes were noted. It was recommended to repeat colonoscopy in 1 year with extra preparation. DIAGNOSIS/TREATMENT HISTORY: Mass was identified obstructing the colon during colonoscopy on 10/23/[address] C/A/P was ordered for further evaluation of the mass obstructing the colon. Surgical resection was performed on 11/13/20 where the entire tumor was removed along with 33 lymph nodes. Reviewed patients past medical, surgical, social, and family history. Outpatient Medications Marked as Taking for the 03/20/21 encounter (Office Visit) with Ayan Estrada MD [...] Capsule by mouth every morning (before breakfast). 30 Capsule 3 Allergies as of 03/20/2021 ??? (No Known Allergies) REVIEW OF SYSTEMS Review of Systems Constitutional: Positive for weight loss. Negative for malaise/fatigue. Respiratory: Negative for cough and shortness of breath. Gastrointestinal: Positive for heartburn. Negative for abdominal pain, diarrhea and nausea. Physical Exam Physical Exam Pulmonary: Effort: Pulmonary effort is normal. Breath sounds: Normal breath sounds. Abdominal: General: Abdomen is flat. A surgical scar is present. Bowel sounds are normal. Palpations: Abdomen is soft. Tenderness: There is no abdominal tenderness. PAIN ASSESSMENT: Robert complains of occasional pain related to a corn on the medial aspect of the left foot. He does not want to be referred to Dr. Sears for evaluation and treatment. DATA: Lab Results Component Value Date WBC 4.90 03/14/2021 RBC 3.48 (L) 03/14/2021 HEMOGLOBIN 12.1 (L) 03/14/2021 HEMATOCRIT 37.2 (L) 03/14/2021 MCV 106.9 (H) 03/14/2021 MCH 34.8 (H) 03/14/2021 MCHC 32.5 03/14/2021 PLATELETCNT 307 03/14/2021 RDW 16.0 (H) 03/14/2021 LYMPHOCYTES 36.1 03/14/2021 RELEOS 3.9 03/14/2021 RELBAS 0.6 03/14/2021 ANC 2.52 03/14/2021 MONOCYTES 0.39 03/14/2021 EOSINOPHILS 0.19 03/14/2021 BASOPHILS 0.03 03/14/2021 Lab Results Component Value Date SODIUM 140 03/14/2021 POTASSIUM 4.8 03/14/2021 CHLORIDE 107 03/14/2021 ANIONGAP 10.8 03/14/2021 GLUCOSE 97 03/14/2021 BUN 14 03/14/2021 CREATININE 0.69 (L) 03/14/2021 TOTALPROTEIN 6.5 03/14/2021 ALBUMIN 4.0 03/14/2021 CALCIUM 9.0 03/14/2021 SGPTALT 9 03/14/2021 ALKALINEPHO 78 03/14/2021 CEA LEVELS: 2.3 CEA 10/23/2020 ? SURGICAL PATHOLOGY: FINAL DIAGNOSIS A. ??Colon, sigmoid [...] methodology and interpretation () performed at [facility]; [place], [place]. Addendum electronically signed by Gentry Rich MD on 11/21/2020 at 1416 ? DIAGNOSTIC IMAGING STUDIES: CT C/A/P 10/24/2020: IMPRESSION: ? Sigmoid colonic mass as evidence of colon cancer.?? Numerous small lymph nodes are noted around the sigmoid colon likely representing local metastatic disease. ??The largest lymph node measures approximately 8 mm.?? No definite liver metastases or lung metastases. Assessment: 1. Stage II pT3pN0 colon cancer-s/p surgical resection. adjuvant capecitabine started on 12/11/20 2. Heartburn, secondary to Capecitabine 3. Diarrhea, 6-7 loose stools--improved Plan: 1.Reviewed above clinical data including current clinical symptoms, recent labs, and current treatment with patient. Robert reports that he continues to take 1000 mg Capcitabine BID. He denies any intolerable side effects related to this medication. He notes resolve in his diarrhea. Robert has cracks present on his hands, none noted on the feet. I would like to increase Robert's dose of Capcitabine given his tolerance to this current dose. For next Capcitabine cycle Robert was instructed to take 1000 mg in AM and 1500 mg in PM for 7 days. He should increase morning dose to 1500 mg for the last 7 daysof the cycle. Patient verbalized understanding of clinical data review. 2. For next Capcitabine cycle Robert was instructed to take 1000 mg in AM and 1500 mg in PM for 7 days. He should increase morning dose to 1500 mg for the last 7 days of the cycle. 3. For the cracks Robert has on his hands, instructed him to use a thick lotion or ointment like Vaseline to keep his hands moist. I also instructed him to wear gloves at night to help aide in the moisturizing of the skin. 4. For the acid reflux, continue taking Omeprazole 20 mg in the morning 2 hours before your Capecitabine dose. I explained to Robert that these medications cannot be taken together.?? 5. For any treatment related diarrhea, Robert was instructed to take Imodium to help firm up his stool and prevent dehydration. He was also instructed to call our office to advise of this symptom to discuss his Capecitabine dose. ?? Follow up in 6 weeks with labs prior The patient was given an opportunity to ask questions, and all questions answered to patient's satisfaction. Patient verbalizes understanding of the plan as outlined above. The documentation for this visit was completed by Milagros Herring acting as a scribe for Ayan Snowden MD. 03/20/2021, 2:35 PM CDT * Ayan Estrada MD - 03/20/2021 2:20 PM CDT Outpatient Hem/Onc Progress Note PROGRESS NOTE Lucian Sosa is a very pleasant 81 y.o. male seen today for follow up of colon cancer. Robert reports that he is currently taking Capcitabine 1000 mg BID. Patient denies trying to increase the dose to 1500 mg BID. Robert reports that he is still experiencing occasional acute heart burn related to the medication. He reports that his diarrhea has resolved, noting a bowel movement every 1-2 days. He reports that he does not eat much during the day, positive for weight loss. 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 He denies getting hungry while he is working, noting his mind is too busy to think about eating. Robert reports eating a 9 inch length rice krispie bar for breakfast with tea. He reports that for dinner he eats a box dinner of [place] sliders that he microwaves. He reports eating cookies with his cats prior to going to bed. Robert reports this is his usual eating pattern, noting increase eating during the rainy times and winter. He reports loosing weight in the summer due to increased work to be done. Robert reports he still has a callus on the medial side of his le ft foot. He notes that when his shoe rubs the corn it causes him pain. He denies any abdominal pain Robert underwent a colonoscopy with Dr. Callaway on 01/22/21 at [facility]. Dr. Callaway removed 6 benign polyps. Surgical changes were noted. It was recommended to repeat colonoscopy in 1 year with extra preparation. DIAGNOSIS/TREATMENT HISTORY: Mass was identified obstructing the colon during colonoscopy on 10/23/[address] C/A/P was ordered for further evaluation of the mass obstructing the colon. Surgical resection was performed on 11/13/20 where the entire tumor was removed along with 33 lymph nodes. Reviewed patients past medical, surgical, social, and family history. Outpatient Medications Marked as Taking for the 03/20/21 encounter (Office Visit) with Ayan Estrada MD [...] Capsule by mouth every morning (before breakfast). 30 Capsule 3 Allergies as of 03/20/2021 ??? (No Known Allergies) REVIEW OF SYSTEMS Review of Systems Constitutional: Positive for weight loss. Negative for malaise/fatigue. Respiratory: Negative for cough and shortness of breath. Gastrointestinal: Positive for heartburn. Negative for abdominal pain, diarrhea and nausea. Physical Exam Physical Exam HENT: Head: Normocephalic and atraumatic. Nose: Nose normal. Eyes: Conjunctiva/sclera: Conjunctivae normal. Pupils: Pupils are equal, round, and reactive to light. Cardiovascular: Rate and Rhythm: Normal rate and regular rhythm. Heart sounds: Normal heart sounds. Pulmonary: Effort: Pulmonary effort is normal. Breath sounds: Normal breath sounds. Abdominal: General: Abdomen is flat. A surgical scar is present. Bowel sounds are normal. Palpations: Abdomen is soft. Tenderness: There is no abdominal tenderness. Musculoskeletal: General: Normal range of motion. Cervical back: Normal range of motion and neck supple. Skin: General: Skin is warm and dry. Neurological: Mental Status: He is alert and oriented to person, place, and time. Gait: Gait is intact. Psychiatric: Mood and Affect: Affect normal. PAIN ASSESSMENT: Robert complains of occasional pain related to a corn on the medial aspect of the left foot. He does not want to be referred to Dr. Sears for evaluation and treatment. DATA: Lab Results Component Value Date WBC 4.90 03/14/2021 RBC 3.48 (L) 03/14/2021 HEMOGLOBIN 12.1 (L) 03/14/2021 HEMATOCRIT 37.2 (L) 03/14/2021 MCV 106.9 (H) 03/14/2021 MCH 34.8 (H) 03/14/2021 MCHC 32.5 03/14/2021 PLATELETCNT 307 03/14/2021 RDW 16.0 (H) 03/14/2021 LYMPHOCYTES 36.1 03/14/2021 RELEOS 3.9 03/14/2021 RELBAS 0.6 03/14/2021 ANC 2.52 03/14/2021 MONOCYTES 0.39 03/14/2021 EOSINOPHILS 0.19 03/14/2021 BASOPHILS 0.03 03/14/2021 Lab Results Component Value Date SODIUM 140 03/14/2021 POTASSIUM 4.8 03/14/2021 CHLORIDE 107 03/14/2021 ANIONGAP 10.8 03/14/2021 GLUCOSE 97 03/14/2021 BUN 14 03/14/2021 CREATININE 0.69 (L) 03/14/2021 TOTALPROTEIN 6.5 03/14/2021 ALBUMIN 4.0 03/14/2021 CALCIUM 9.0 03/14/2021 SGPTALT 9 03/14/2021 ALKALINEPHO 78 03/14/2021 CEA LEVELS: 2.3 CEA 10/23/2020 ? SURGICAL PATHOLOGY: FINAL DIAGNOSIS A. ??Colon, sigmoid [...] methodology and interpretation () performed at [facility]; [place], [place]. Addendum electronically signed by Gentry Rich MD on 11/21/2020 at 1416 ? DIAGNOSTIC IMAGING STUDIES: CT C/A/P 10/24/2020: IMPRESSION: ? Sigmoid colonic mass as evidence of colon cancer.?? Numerous small lymph nodes are noted around the sigmoid colon likely representing local metastatic disease. ??The largest lymph node measures approximately 8 mm.?? No definite liver metastases or lung metastases. Assessment: 1. Stage II pT3pN0 colon cancer-s/p surgical resection. adjuvant capecitabine started on 12/11/20 2. Heartburn, secondary to Capecitabine 3. Diarrhea, 6-7 loose stools--improved Plan: 1.Reviewed above clinical data including current clinical symptoms, recent labs, and current treatment with patient. Robert reports that he continues to take 1000 mg Capcitabine BID. He denies any intolerable side effects related to this medication. He notes resolve in his diarrhea. Robert has cracks present on his hands, none noted on the feet. I would like to increase Robert's dose of Capcitabine given his tolerance to this current dose. For next Capcitabine cycle Robert was instructed to take 1000 mg in AM and 1500 mg in PM for 7 days. He should increase morning dose to 1500 mg for the last 7 daysof the cycle. Patient verbalized understanding of clinical data review. 2. For next Capcitabine cycle Robert was instructed to take 1000 mg in AM and 1500 mg in PM for 7 days. He should increase morning dose to 1500 mg for the last 7 days of the cycle. 3. For the cracks Robert has on his hands, instructed him to use a thick lotion or ointment like Vaseline to keep his hands moist. I also instructed him to wear gloves at night to help aide in the moisturizing of the skin. 4. For the acid reflux, continue taking Omeprazole 20 mg in the morning 2 hours before your Capecitabine dose. I explained to Robert that these medications cannot be taken together.?? 5. For any treatment related diarrhea, Robert was instructed to take Imodium to help firm up his stool and prevent dehydration. He was also instructed to call our office to advise of this symptom to discuss his Capecitabine dose. ?? Follow up in 6 weeks with labs prior The patient was given an opportunity [...] * Interdisciplinary - Zaira Faith MA - 03/20/2021 2:20 PM CDT Follow up. No pain, today. Meds reviewed with pt and are up to date--tjo documented in this encounter Plan of Treatment Upcoming Encounters Date Type Department Care Team (Late st Contact Info) Description 11/08/2024 2:00 PM GAMING DEPARTMENT HEAD Office Visit [facility] - [place] [address] [place] [phone] Almaz Sin APRN, PARK MAINTENANCE TECHNICIAN [address] [place] [address] documented as of this encounter Visit Diagnoses Diagnosis Malignant neoplasm of sigmoid colon (HCC)- Primary Malignant neoplasm of sigmoid colon Gastroesophageal reflux disease without esophagitis Esophageal reflux documented in this encounter Care Teams Setup Technician Relationship Specialty Start Date End Date Deena Beach APRN, PARK MAINTENANCE TECHNICIAN [address] [place] [address] PCP - General Advanced Practice Nurse 09/24/19 documented as of this encounter
--- OUTSIDE RECORDS SUMMARY | 2024-11-07 05:01 | XMS_ITS | Encounter Summary ---
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 DYSPLASIA, 1.2 cm. - Margin negative for high-grade dysplasia. 01/23/2021 4:02 PM CDT [facility] Pre-Operative Diagnosis No Dx found. 01/23/2021 4:02 PM CDT [facility] Gross Description A. HEPATIC FLEXURE POLYPS X4 The specimen presents in three formalin containers for gross and microscopic examination labeled with the patient's name, Lucian Sosa. The specimen is designated as hepatic flexure polyps. The specimen consists of five pieces of pink-bull tissue measuring 0.2 to 0.4 cm in greatest dimension. They will be submitted in their entirety in cassette A1. B. QUESTIONABLE ASCENDING COLON POLYP The specimen is designated as questionable ascending colon polyp. The specimen consists of two pieces of light bull tissue measuring 0.1 to 0.3 cm in greatest dimension. All submitted cassette B1. C. RECTAL POLYP The specimen is designated as rectal polyp. The specimen consists of a single pink-bull polyp measuring 1.2 cm in greatest dimension. It will be inked at the excisional margin, trisected and submitted in cassette C1. KS/sb 01/23/2021 4:02 PM CDT [facility] Microscopic Description 9 H&E. Microscopic examination supports the diagnoses. Sections of the rectal polyp show polypoid portions of large intestinal mucosa with diffuse epithelial changes of low-grade dysplasia. Focally, there is evidence of high-grade dysplasia characterized by loss of nuclear polarity. The polyp resection margin appears free of involvement by the high-grade dysplasia. No invasive carcinoma is seen. SES/sb 01/23/2021 4:02 PM CDT [facility] Tissue TISSUE SPECIMEN FROM LARGE INTESTINE / Unknown 01/22/2021 8:00 AM CDT 01/22/2021 8:32 AM CDT Tissue specimen (specimen) TISSUE SPECIMEN FROM LARGE INTESTINE / Unknown 01/22/2021 8:04 AM CDT 01/22/2021 8:32 AM CDT Tissue specimen (specimen) (Rectal) 01/22/2021 8:11 AM CDT 01/22/2021 8:32 AM CDT Joe Callaway DO PATHOLOGY/CYTOLOGY ORDERABLES F inal Result [facility] [address] [place] [address] documented in this encounter Visit Diagnoses Not on filedocumented in this encounter Administered Medications Inactive Administered Medications - up to 3 most recent administrations Medication Order MAR Action Action Date Dose Rate Site lactated ringers infusion at 20 mL/hr, Intravenous, CONTINUOUS, Starting on Fri01/22/21 at 0630, Until Fri01/22/21 at 1115 New Bag 01/22/2021 6:16 AM CDT 20 mL/hr documented in this encounter Active and Recently Administered Medications Times are shown in CDT. Continuous Medication Order 01/20/2021 01/21/2021 01/22/2021 lactated ringers infusion at 20 mL/hr, Intravenous, CONTINUOUS, Starting on Fri01/22/21 at 0630, Until Fri01/22/21 at 1115 0616 (New Bag - Prov ider: Margareth Posey RN)[id number] (Stopped - Provider: Margareth Posey RN) documented in this encounter Care Teams Lieutenant Fire Fighter Relationship Specialty Start Date End Date Deena Beach APRN, AQUATIC DIRECTOR [address] [place] [address] PCP - General Advanced Practice Nurse 09/24/19 documented as of this encounter
--- OUTSIDE RECORDS SUMMARY | 2024-11-07 05:01 | XMS_ITS | Encounter Summary ---
Author Organization [facility] Care Team Providers Care Tile Shader Name Role Phone Gigi Waters MD Primary Care Provider [phone] Encounter Details Date Type Department Care Team (Latest Contact Info) Description 08/21/2023 Travel Social History Tobacco Use Types Packs/Day [...] st Contact Info) Description 11/08/2024 2:00 PM MANUAL LATHE MACHINIST Office Visit [facility] - Primary Care - [place] [address] [place] [address] Almaz Sin, STOVE INSTALLER, PROCESS SAFETY ENGINEERING TECHNOLOGIST [address] [place] [address] documented as of this encounter Visit Diagnoses Not on filedocumented in this encounter Care Teams Tile Shader Relationship Specialty Start Date End Date Gigi Waters MD [address] [place] [id number] PCP - General Family Medicine 01/24/23 documented as of this encounter
--- OUTSIDE RECORDS SUMMARY | 2024-11-07 05:01 | XMS_ITS | Encounter Summary ---
Author Organization [facility] Care Team Providers Care Clinical Auditor Name Role Phone Gigi Waters MD Primary Care Provider [phone] Encounter Details Date Type Department Care Team (Latest Contact Info) Description 01/24/2023 Travel Social History Tobacco Use Types Packs/Day [...] Stevens RMA documented as of this encounter Plan of Treatment Upcoming Encounters Date Type Department Care Team (Late st Contact Info) Description 11/08/2024 2:00 PM BANDAGE WRAPPING MACHINE OPERATOR Office Visit [facility] - Primary Care - [place] [address] [place] [phone] Almaz Sin APRN, FUR MIXER [address] [place] [address] documented as of this encounter Visit Diagnoses Not on filedocumented in this encounter Care Teams Clinical Auditor Relationship Specialty Start Date End Date Gigi Waters MD [address] [address] PCP - General Family Medicine 01/24/23 documented as of this encounter
--- OUTSIDE RECORDS SUMMARY | 2024-11-07 05:01 | XMS_ITS | Encounter Summary ---
Author Organization [facility] Care Team Providers Care Personnel Recruiter Name Role Phone Deena Beach APRN, WATERPROOF MATERIAL FOLDER Primary Care P edgar Encounter Details Date Type Department Care Team (Latest Contact Info) Description 01/22/2021 Travel Social History Tobacco Use Types Packs/Day [...] st Contact Info) Description 11/08/2024 2:00 PM PATTERN DESIGNER Office Visit [facility] - Primary Care - [place] [address] [place] [phone] Almaz Sin APRN, WATERPROOF MATERIAL FOLDER [address] [place] [address] documented as of this encounter Visit Diagnoses Not on filedocumented in this encounter Care Teams Personnel Recruiter Relationship Specialty Start Date End Date Deena Beach, VELVET CUTTER, WATERPROOF MATERIAL FOLDER [address] [place] [address] PCP - General Advanced Practice Nurse 09/24/19 documented as of this encounter
--- OUTSIDE RECORDS SUMMARY | 2024-11-07 05:01 | XMS_ITS | Encounter Summary ---
Author Organization [facility] Address [address] [place] [place] [address] Phone Care Team Providers Care Dormitory Counselor Name Role Phone Deena Beach APRN, CNP Primary Care P rocandidoder Reason for Visit * Reason Comments Follow-up Encounter Details Date Type Department Care Team (Late st Contact Info) Description 01/31/2021 2:40 PM CDT Office Visit [facility] On[facility] Services [address] [place] [phone] Ayan Estrada MD [address] [place] [address] Malignant neoplasm of sigmoid colon (HCC) (Primary Dx); Gastroesophageal reflux disease without esophagitis; S/P laparoscopic colectomy Discharge Disposition: Discharged to home or Selfcare [...] Sign Reading Time Taken Comments Blood Pressure 131/60 01/31/2021 2:42 PM CDT Pulse 72 01/31/2021 2:42 PM CDT Temperature 36.6 ??C (97.8 ??F) 01/31/2021 2:42 PM CD T Respiratory Rate 20 01/31/2021 2:42 PM CDT Oxygen Saturation 98% 01/31/2021 2:42 PM CDT Inhaled Oxygen Concentration - - Weight 80 kg (176 lb 6.4 oz) 01/31/2021 2:42 PM CDT Height 182.9 cm (6') 01/31/2021 2:42 PM CDT Body Mass Index 23.92 01/31/2021 2:42 PM CDT documented in this encounter Progress Notes * Milagros Herring - 01/31/2021 2:40 PM CDT Outpatient Hem/Onc Progress Note PROGRESS NOTE Lucian Sosa is a very pleasant 80 y.o. male seen today for follow up of colon cancer. Robert has currently been taking Capecitabine 500 mg two tablets BID for a total of 2000 mg. He is currently in the middle of a cycle, stating he has 7 days left. Robert started omeprazole 20 mg p.o daily. He reports that he is taking the omeprazole around 7 am. He takes the capecitabine around 9 am. He reports that his acid reflux improved with taking omeprazole in the morning. Robert reports that he has not noticed any reddening of the hands or feet. He does have cracks on his fingers. Robert states that he has had these cracks prior to starting Capecitabine. He does note that the healing time of these cracks has increased. He denies any joint pain in his hands. He is able to move his fingers without pain. He does report occasional joint stiffness in the morning. Robert denies any change in appetite. Robert underwent a colonoscopy with Dr. Callaway on 01/22/21 at [facility]. Dr. Callaway removed 6 benign polyps. Surgical changes were noted. It was recommended to repeat colonoscopy in 1 year with extra preparation. DIAGNOSIS/TREATMENT HISTORY: Capecitabine started on 12/11/20 Reviewed patients past medical, surgical, social, and family history. Outpatient Medications Marked as Taking for the 01/31/21 encounter (Office Visit) with Ayan Estrada MD [...] breakfast). 30 Capsule 3 Allergies as of 01/31/2021 ??? (No Known Allergies) REVIEW OF SYSTEMS Review of Systems Gastrointestinal: Negative for abdominal pain and heartburn. Skin: Dry cracks noted on the right hand All other systems reviewed and are negative. Physical Exam Physical Exam PAIN ASSESSMENT: no verbal pain complaints today. DATA: Lab Results Component [...] 01/29/2021 SGPTALT 10 01/29/2021 ALKALINEPHO 67 01/29/2021 DIAGNOSTIC IMAGING STUDIES: CT C/A/P 10/24/2020: IMPRESSION: [...] with minimal side effects. His blood levels are remaining stable while on Capcitabine. Given his GI symptoms have improved with omeprazole, I would like to increase his dose. He should start taking Capcitabine 1500 mg BID for disease control. I explained the importance in being complaint in taking this medication. Patient verbalized understanding of clinical data review. 2. Reviewed the side effects of Xeloda with Robert. Side effects include acneform rash, low blood counts, increase risk of infection, diarrhea, hand/foot syndrome, and peripheral neuropathy. 3. For the cracks Robert has on [...] before your Capecitabine dose. I explained to Roebrt that these medications cannot be taken together. 5. For the diarrhea, Robert was instructed to take Imodium to help firm up his stool and prevent dehydration. Follow up in 6 weeks with labs prior The patient was given an opportunity to ask questions, and all questions answered to patient's satisfaction. Patient verbalizes understanding of the plan as outlined above. The documentation for this visit was completed by Milagros Herring acting as a scribe for Ayan Snowden MD. 01/31/2021, 2:59 PM CDT * Ayan Estrada MD - 01/31/2021 2:40 PM CDT Outpatient Hem/Onc Progress Note PROGRESS NOTE Lucian Sosa is a very pleasant 80 y.o. male seen today for follow up of colon cancer. Robert has currently been taking Capecitabine 500 mg two tablets BID for a total of 2000 mg. He is currently in the middle of a cycle, stating he has 7 days left. Robert started omeprazole 20 mg p.o daily. He reports that he is taking the omeprazole around 7 am. He takes the capecitabine around 9 am. He reports that his acid reflux improved with taking omeprazole in the morning. Robert reports that he has not noticed any reddening of the hands or feet. He does have cracks on his fingers. Robert states that he has had these cracks prior to starting Capecitabine. He does note that the healing time of these cracks has increased. He denies any joint pain in his hands. He is able to move his fingers without pain. He does report occasional joint stiffness in the morning. Robert denies any change in appetite. Robert underwent a colonoscopy with Dr. Callaway on 01/22/21 at [facility]. Dr. Callaway removed 6 benign polyps. Surgical changes were noted. It was recommended to repeat colonoscopy in 1 year with extra preparation. DIAGNOSIS/TREATMENT HISTORY: Reviewed patients past medical, surgical, social, and family history. Outpatient Medications Marked as Taking for the 01/31/21 encounter (Office Visit) with Ayan Estrada MD [...] breakfast). 30 Capsule 3 Allergies as of 01/31/2021 ??? (No Known Allergies) REVIEW OF SYSTEMS Review of Systems Gastrointestinal: Negative for abdominal pain and heartburn. Skin: Dry cracks noted on the right hand All other systems reviewed and are negative. Physical Exam Physical Exam Constitutional: He is oriented to person, place, and time and well-developed, well-nourished, and in no distress. HENT: Right eye absent Pulmonary/Chest: Effort normal. Abdominal: Soft. He exhibits no distension. There is no abdominal tenderness. Musculoskeletal: General: No tenderness or edema. Neurological: He is alert and oriented to person, place, and time. Skin: Some cracking of the skin of his fingers. Mild erythema on the palms and soles PAIN ASSESSMENT: no verbal pain complaints today. DATA: Lab Results Component [...] 01/29/2021 SGPTALT 10 01/29/2021 ALKALINEPHO 67 01/29/2021 DIAGNOSTIC IMAGING STUDIES: CT C/A/P 10/24/2020: IMPRESSION: [...] with minimal side effects. His blood levels are remaining stable while on Capcitabine. Given his GI symptoms have improved with omeprazole, I would like to increase his dose. He should start taking Capcitabine 1500 mg BID for disease control. I explained the importance in being complaint in taking this medication. Patient verbalized understanding of clinical data review. 2. Reviewed the side effects of Xeloda with Robert. Side effects include acneform rash, low blood counts, increase risk of infection, diarrhea, hand/foot syndrome, and peripheral neuropathy. 3. For the cracks Robert has on [...] that these medications cannot be taken together. 5. For the diarrhea, Robert was instructed to take Imodium to help firm up his stool and prevent dehydration. Follow up in 6 weeks with labs prior The patient was given an opportunity to ask questions, and all questions answered to patient's satisfaction. Patient verbalizes understanding of the plan as outlined above. The documentation for this visit was completed by Milagros Herring acting as a scribe for Ayan Snowden MD. 02/01/2021, 6:23 AM CDT The documentation recorded by the scribe was completed while in the exam room with me and the patient.?? The documentation accurately reflects the service I personally performed and the decisions made by me. I have confirmed and edited the documentation as necessary. Ayan Estrada MD 02/01/2021, 6:24 AM CDT documented in this encounter Miscellaneous Notes * Interdisciplinary - Hermelinda Blanco 01/31/2021 2:40 PM CDT The patient has no complaints during today's visit. Pain score is 0. documented in this encounter Plan of Treatment Upcoming Encounters Date Type Department Care Team (Late st Contact Info) Description 11/08/2024 2:00 PM CHIEF ACCOUNTING OFFICER Office Visit [facility] - Primary Care - [place] [address] [place] [address] Almaz Sin APRN, OILER HELPER [address] [place] [address] documented as of this encounter Visit Diagnoses Diagnosis Malignant neoplasm of sigmoid colon (HCC)- Primary Malignant neoplasm of sigmoid colon Gastroesophageal reflux disease without esophagitis Esophageal reflux S/P laparoscopic colectomy Other postprocedural status documented in this encounter Care Teams Dormitory Counselor Relationship Specialty Start Date End Date Deena Beach APRN, OILER HELPER [address] [place] [address] PCP - General Advanced Practice Nurse 09/24/19 documented as of this encounter
--- OUTSIDE RECORDS SUMMARY | 2024-11-07 05:01 | XMS_ITS | Encounter Summary ---
Author Organization [facility] Address [address] [place] [address] Phone Care Team Providers Care Fountain Clerk Name Role Phone Gigi Waters MD Primary Care Provider [phone] Reason for Referral * Consult, Test & Initiate Treatment (Routine) - Canceled Specialty Diagnoses / Procedures Referred By Contac t Referred To Contact Oncology Diagnoses Malignant neoplasm of sigmoid colon (HCC) Gigi Waters MD [address] [address] Phone: tel: fax: [facility] Services [address] [place] [address] Phone: tel: fax: Referral ID Status Reason Start Date Expiration Date V isits Requested Visits Authorized [id number] Canceled 01/27/2023 1 1 Scheduling Instructions Floyd is being referred for follow up for colon cancer. Last seen 2020 Please contact patient for scheduling questions or concerns. Encounter Details Date Type Department Care Team (Late st Contact Info) Description 01/27/2023 Telephone [facility] [place] [address] [place] [phone] Gigi Waters MD [address] [address] Social History Tobacco Use Types Packs/Day Years [...] Miscellaneous Notes * Telephone Encounter - Danielle Linares RMA - 01/27/2023 1:54 PM CDT Mailed letter, unable to reach patient by telephone. * Telephone Encounter - Gigi Waters MD - 01/27/2023 8:19 AM CDT Please call. Labs look fine I will send you to hem onc for follow up Ov in 6 months documented in this encounter Plan of Treatment Upcoming Encounters Date Type Department Care Team (Late st Contact Info) Description 11/08/2024 2:00 PM JIGSAW OPERATOR Office Visit [facility] - Primary Care - [place] [address] [place] [phone] Almaz Sin, HEAVY EQUIPMENT SERVICE MANAGER, VIDEO CONFERENCE SPECIALIST [address] [place] [address] Scheduled Referrals Name Type Priority Associated Diagnoses Order Schedule HEMATOLOGY ONCOLOGY REFERRAL Outpatient Referral Routine Malignant neoplasm of sigmoid colon (HCC) Expected: 10/30/2023, Expires: 04/29/2024 documented as of this encounter Visit Diagnoses Diagnosis Malignant neoplasm of sigmoid colon (HCC)- Primary Malignant neoplasm of sigmoid colon documented in this encounter Care Teams Fountain Clerk Relationship Specialty Start Date End Date Gigi Waters MD [address] [address] PCP - General Family Medicine 01/24/23 documented as of this encounter
--- OUTSIDE RECORDS SUMMARY | 2024-11-07 05:01 | XMS_ITS | Encounter Summary ---
Author Organization [facility] Address [address] [facility] [place] [address] Phone Care Team Providers Care Major Case Detective Name Role Phone Deena Beach APRN, CNP Primary Care P edgar Encounter Details Date Type Department Care Team (Late st Contact Info) Description 05/11/2021 Telephone [facility] [address] [place] [address] Ayan Estrada MD [address] [place] [address] Social History Tobacco Use Types Packs/Day Years [...] encounter Miscellaneous Notes * Telephone Encounter - Fiona Bach RN - 05/11/2021 11:43 AM CDT Patient called today to confirm that starting tomorrow 05/12/21 is his last cycle of Capecitabine. Patient thinks that he will have some extra medication left when he finishes the 14 days as He has part of a bottle already. Directed patient that he should take the full 14 days 3 tabs BID and if he has medication left we can dispose of it here at the office. Patient confirmed understanding that this is his last cycle before his scan and will take the full 14 days. Directed patient to call office with any additional questions or concerns. documented in this encounter Plan of Treatment Upcoming Encounters Date Type Department Care Team (Late st Contact Info) Description 11/08/2024 2:00 PM PRINCIPAL INVESTIGATOR Office Visit [facility] - Primary Care - [place] [address] [place] [address] Almaz Sin APRN, ENVIRONMENTAL SERVICES ATTENDANT [address] [place] [address] documented as of this encounter Visit Diagnoses Not on filedocumented in this encounter Care Teams Major Case Detective Relationship Specialty Start Date End Date Deena Beach APRN, ENVIRONMENTAL SERVICES ATTENDANT [address] [place] [address] PCP - General Advanced Practice Nurse 09/24/19 documented as of this encounter
--- OUTSIDE RECORDS SUMMARY | 2024-11-07 05:01 | XMS_ITS | Encounter Summary ---
Author Organization [facility] Address [address] [place] [address] Phone Care Team Providers Care Chemical Tester Name Role Phone Gigi Waters MD Primary Care Provider Encounter Details Date Type Department Care Team (Late st Contact Info) Description 01/27/2023 Telephone [facility] [address] [place] [address] Gigi Waters MD [address] [address] Social History Tobacco Use Types Packs/Day Years [...] Encounter - Danielle Linares RMA - 01/27/2023 1:52 PM CDT Mailed letter documented in this encounter Plan of Treatment Upcoming Encounters Date Type Department Care Team (Late st Contact Info) Description 11/08/2024 2:00 PM BUTTON TUFTING MACHINE OPERATOR [facility] Visit [facility] - Primary Care - [place] [address] [place] [address] Almaz Sin, DINING CAR HOP, COVER CREASER [address] [place] [address] documented as of this encounter Visit Diagnoses Not on filedocumented in this encounter Care Teams Chemical Tester Relationship Specialty Start Date End Date Gigi Waters MD [address] [address] PCP - General Family Medicine 01/24/23 documented as of this encounter
--- OUTSIDE RECORDS SUMMARY | 2024-11-07 05:01 | XMS_ITS | Encounter Summary ---
Author Organization [facility] Care Team Providers Care Multimedia Engineer Name Role Phone Deena Beach APRN, REGISTERED ASSOCIATE Primary Care P edgar Encounter Details Date Type Department Care Team (Latest Contact Info) Description 01/29/2021 Travel Social History Tobacco Use Types Packs/Day [...] have Coronavirus / COVID-19? No / Unsure 01/29/2021 9:40 AM CDT documented as of this encounter Plan of Treatment Upcoming Encounters Date Type Department Care Team (Late st Contact Info) Description 11/08/2024 2:00 PM ELECTRONIC SECURITY SPECIALIST Office Visit [facility] - Primary Care - [place] [address] [place] [phone] Almaz Sin APRN, REGISTERED ASSOCIATE [address] [place] [address] documented as of this encounter Visit Diagnoses Not on filedocumented in this encounter Care Teams Multimedia Engineer Relationship Specialty Start Date End Date Deena Beach, GOLF COURSE ARCHITECT, REGISTERED ASSOCIATE [address] [place] [address] PCP - General Advanced Practice Nurse 09/24/19 documented as of this encounter
--- OUTSIDE RECORDS SUMMARY | 2024-11-07 05:01 | XMS_ITS | Encounter Summary ---
Author Organization [facility] Care Team Providers Care Patient Accounts Specialist Name Role Phone Deena Beach APRN, CARBURIZER Primary Care P edgar Encounter Details Date Type Department Care Team (Latest Contact Info) Description 04/18/2021 Travel Social History Tobacco Use Types Packs/Day [...] st Contact Info) Description 11/08/2024 2:00 PM KETTLE TENDER Office Visit [facility] - Primary Care - [place] [address] [place] [phone] Almaz Sin APRN, CARBURIZER [address] [place] [address] documented as of this encounter Visit Diagnoses Not on filedocumented in this encounter Care Teams Patient Accounts Specialist Relationship Specialty Start Date End Date Deena Beach, PRIMER CHARGER, CARBURIZER [address] [place] [address] PCP - General Advanced Practice Nurse 09/24/19 documented as of this encounter
--- OUTSIDE RECORDS SUMMARY | 2024-11-07 05:01 | XMS_ITS | Encounter Summary ---
Author Organization [facility] Care Team Providers Care Roll Clamp Operator Name Role Phone Deena Beach APRN, STIFF LEG OPERATOR Primary Care P edgar Encounter Details Date Type Department Care Team (Latest Contact Info) Description 01/19/2021 Travel Social History Tobacco Use Types Packs/Day [...] have Coronavirus / COVID-19? No / Unsure 01/19/2021 8:34 AM CDT documented as of this encounter Plan of Treatment Upcoming Encounters Date Type Department Care Team (Late st Contact Info) Description 11/08/2024 2:00 PM BREAK AND LOAD OPERATOR Office Visit [facility] - Primary Care - [place] [address] [place] [phone] Almaz Sin APRN, STIFF LEG OPERATOR [address] [place] [address] documented as of this encounter Visit Diagnoses Not on filedocumented in this encounter Care Teams Roll Clamp Operator Relationship Specialty Start Date End Date Deena Beach, INDUCTOR TESTER, STIFF LEG OPERATOR [address] [place] [address] PCP - General Advanced Practice Nurse 09/24/19 documented as of this encounter
--- OUTSIDE RECORDS SUMMARY | 2024-11-07 05:01 | XMS_ITS | Encounter Summary ---
Author Organization [facility] Care Team Providers Care Electronic Integrated Systems Mechanic Name Role Phone Deena Beach APRN, PROGRAM DIRECTOR GROUP WORK Primary Care P edgar Encounter Details Date Type Department Care Team (Latest Contact Info) Description 03/14/2021 Travel Social History Tobacco Use Types Packs/Day [...] have Coronavirus / COVID-19? No / Unsure 03/14/2021 11:40 AM CDT documented as of this encounter Plan of Treatment Upcoming Encounters Date Type Department Care Team (Late st Contact Info) Description 11/08/2024 2:00 PM PORTAINER OPERATOR Office Visit [facility] - Primary Care - [place] [address] [place] [phone] Almaz Sin APRN, PROGRAM DIRECTOR GROUP WORK [address] [place] [address] documented as of this encounter Visit Diagnoses Not on filedocumented in this encounter Care Teams Electronic Integrated Systems Mechanic Relationship Specialty Start Date End Date Deena Beach, CABLE TOOL DRILLER, PROGRAM DIRECTOR GROUP WORK [address] [place] [address] PCP - General Advanced Practice Nurse 09/24/19 documented as of this encounter
--- OUTSIDE RECORDS SUMMARY | 2024-11-07 05:01 | XMS_ITS | Encounter Summary ---
Author Organization [facility] Address [address] [place] [address] Phone Care Team Providers Care Captain Waiter/Waitress Name Role Phone Deena Beach APRN, CNP Primary Care P rovider Reason for Visit * Reason Comments Esophageal Reflux Encounter Details Date Type Department Care Team (Late st Contact Info) Description 04/25/2021 9:00 AM CDT Office Visit [facility] - Primary Care - [place] [address] [place] [phone] Deena Beach APRN, CNP [address] [place] [address] Malignant neoplasm of sigmoid colon (HCC) (Primary Dx); Gastroesophageal reflux disease without esophagitis; Screening for heart disease Discharge Disposition: Discharged [...] Sign Reading Time Taken Comments Blood Pressure 126/64 04/25/2021 8:58 AM CDT Pulse 65 04/25/2021 8:58 AM CDT Temperature 36.5 ??C (97.7 ??F) 04/25/2021 8:58 AM CD T Respiratory Rate 20 04/25/2021 8:58 AM CDT Oxygen Saturation 98% 04/25/2021 8:58 AM CDT Inhaled Oxygen Concentration - - Weight 77.1 kg (170 lb) 04/25/2021 8:58 AM CDT Height 182.9 cm (6') 04/25/2021 8:58 AM CDT Body Mass Index 23.06 04/25/2021 8:58 AM CDT documented in this encounter Patient Instructions * Patient Instructions* Deena Beach APN, CNP - 04/25/2021 9:00 AM CDT Take all medications as prescribed. Please continue with a balanced lifestyle of exercise and healthy eating. If any question, please call. Thanks for coming in today! documented in this encounter Progress Notes * Ella Carolina CMA - 04/25/2021 9:00 AM CDT Lucian Sosa, 81 y.o., male is here for Esophageal Reflux Medication Refills: Patient reports/denies need for medication [...] years: 10.00 Quit date: 02/11/1967 Years since quittin.2 ??? Smokeless tobacco: Never Used Vaping Use ??? Vaping Use: Never used [...] ??? Pneumococcal Immunization (65+ years) (2 of 4 - PPSV23) 11/22/2019 Orders Pended: no The following BPA's have been addressed with the patient today: N/A * Deena Beach APN, INTERACTIVE VIDEO TECHNICIAN - 04/25/2021 9:00 AM CDT [facility] [address] [address] Dept: [phone] Dept Loc: [phone] Loc Patient: Lucian Sosa : 1940 Sex: male Subjective: HPI: Lucian Sosa presents for 6mo f/u on chronic conditions. Patient had recent labs done. Overall look good. Persistent anemia. He is taking oral chemotherapy for malignant neoplasm of the colon. He sees Dr. Estrada on a regular basis. He denies any acute complaints today. He states he is feeling fine. States that his heartburn has been doing much better. He did have an episode last night but it resolved. Reports that he does not have daily bowel movements but he will go every 3 days and then go 3-4 times that day. Health maintenance reviewed. He is going to have his COVID shot today. ROS Fourteen point review of systems negative except as documented in HPI. Objective: Vitals: 04/25/21 0858 BP: 126/64 BP Location: Right Arm BP Position: Sitting BP Cuff Size: Regular Pulse: 65 Resp: 20 Temp: 97.7 ??F (36.5 ??C) TempSrc: Temporal SpO2: 98% Weight: 170 lb (77.1 kg) Height: 6' (1.829 m) LMP 10/02/2020 (Approximate) Physical Exam Vitals and nursing note reviewed. Constitutional: General: He is not in acute distress. Appearance: He is well-developed. HENT: Head: Normocephalic and atraumatic. Right Ear: Tympanic membrane, ear canal and external ear normal. Left Ear: Tympanic membrane, ear canal and external ear normal. Nose: Nose normal. Mouth/Throat: Mouth: Mucous membranes are moist. Pharynx: Oropharynx is clear. Eyes: Conjunctiva/sclera: Conjunctivae normal. Neck: Thyroid: No thyromegaly. Cardiovascular: Rate and Rhythm: Normal rate and regular rhythm. Heart sounds: Normal heart sounds. No murmur heard. No friction rub. No gallop. Pulmonary: Effort: Pulmonary effort is normal. No respiratory distress. Breath sounds: Normal breath sounds. No wheezing. Abdominal: General: Bowel sounds are normal. There is no distension. Palpations: Abdomen is soft. There is no mass. Tenderness: There is no abdominal tenderness. There is no right CVA tenderness, left CVA tenderness, guarding or rebound. Hernia: No hernia is present. Musculoskeletal: General: No tenderness or deformity. Normal range of motion. Cervical back: Normal range of motion and neck supple. Right lower leg: No edema. Left lower leg: No edema. Lymphadenopathy: Cervical: No cervical adenopathy. Skin: General: Skin is warm and dry. Capillary Refill: Capillary refill takes less than 2 seconds. Findings: No rash. Neurological: Mental Status: He is alert and oriented to person, place, and time. Motor: No abnormal muscle tone. Coordination: Coordination normal. Deep Tendon Reflexes: Reflexes normal. Psychiatric: Speech: Speech normal. Behavior: Behavior normal. Thought Content: Thought content normal. Judgment: Judgment normal. Medical Decision Making: Assessment & Plan Diagnoses and all orders for this visit: Malignant neoplasm of sigmoid colon (HCC) - COMPLETE BLOOD COUNT (CBC) WITH DIFF; Future - CMP (COMPREHENSIVE METABOLIC PANEL); Future Gastroesophageal reflux disease without esophagitis Screening for heart disease - LIPID PANEL; Future Fasting labs in 6 months. Continue close follow-up with Oncology. Follow-up Information Return in about 6 months (around 10/25/2021) for routine. LOS Today OFFICE/OP EST LVL 4 MOD MDM/30-39 MIN documented in this encounter Miscellaneous Notes * Addendum Note - Elsi Garcia RMA - 04/25/2021 9:00 AM CDTAddended by: ERENDIRA GARCIA on: 11/20/2021 01:19 PM Modules accepted: Orders CLOSER * Addendum Note - Ella Santos CMA - 04/25/2021 9:00 AM CDTAddended by: ELLA SANTOS on: 10/24/2022 09:02 AM Modules accepted: Orders CLOSER documented in this encounter Plan of Treatment Upcoming Encounters Date Type Department Care Team (Late st Contact Info) Description 11/08/2024 2:00 PM SEAM CLOSER Office Visit [facility] - Primary Care - [place] [address] [place] [address] Almaz Sin ELECTRICAL POWER ENGINEER, INTERACTIVE VIDEO TECHNICIAN [address] [place] [address] documented as of this encounter Visit Diagnoses Diagnosis Malignant neoplasm of sigmoid colon (HCC)- Primary Malignant neoplasm of sigmoid colon Gastroesophageal reflux disease without esophagitis Esophageal reflux Screening for heart disease Screening for other and unspecified cardiovascular conditions documented in this encounter Care Teams Captain Waiter/Waitress Relationship Specialty Start Date End Date Deena Beach APRN, MYRNA [address] [place] [address] PCP - General Advanced Practice Nurse 09/24/19 documented as of this encounter
--- OUTSIDE RECORDS SUMMARY | 2024-11-07 05:01 | XMS_ITS | Encounter Summary ---
Author Organization [facility] Address [address] [place] [address] Phone Care Team Providers Care Forge Shop Supervisor Name Role Phone Deena Beach APRN, MYRNA Primary Care P edgar Encounter Details Date Type Department Care Team (Late st Contact Info) Description 12/05/2020 Telephone [facility] [address] [place] [address] Joe Callaway, DO [address] [address] Social History Tobacco Use Types Packs/Day Years [...] COVID-19? No / Unsure 11/28/2020 8:10 AM ORE FEEDER documented as of this encounter Miscellaneous Notes * Telephone Encounter - Eva García - 12/05/2020 8:30 AM CST Colon / split prep instructions FEEDER documented in this encounter Plan of Treatment Upcoming Encounters Date Type Department Care Team (Late st Contact Info) Description 11/08/2024 2:00 PM ORE FEEDER Office Visit [facility] - Primary Care - [place] [address] [place] [address] Almaz Sin APRN, PRINTING PRESS MACHINE OPERATOR [address] [place] [address] documented as of this encounter Visit Diagnoses Not on filedocumented in this encounter Care Teams Forge Shop Supervisor Relationship Specialty Start Date End Date Deena Beach APRN, PRINTING PRESS MACHINE OPERATOR [address] [place] [address] PCP - General Advanced Practice Nurse 09/24/19 documented as of this encounter
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
--- OUTSIDE RECORDS SUMMARY | 2024-11-07 05:01 | XMS_ITS | Encounter Summary ---
Author Organization [facility] Address [address] [place] [address] Phone Care Team Providers Care Manager Internet Name Role Phone Deena Beach APRN, CNP Primary Care P edgar Encounter Details Date Type Department Care Team (Late st Contact Info) Description 12/15/2020 Telephone [facility] Cancer Center Oncology Services [address] [place] [address] Ayan Estrada MD [address] [place] [address] Social History Tobacco Use Types Packs/Day Years [...] COVID-19? No / Unsure 11/28/2020 8:10 AM INTAKE SPECIALIST documented as of this encounter Miscellaneous Notes * Telephone Encounter - Henrietta Dietrich LPN - 12/15/2020 11:19 AM CST Patient calling with an update since starting his Capecitabine. States that the first day he was ok. Second day he felt like his stomach was going to explode. Third day he had belching. Last night hehad the pain in his stomach again and it went up into his chest. Subsided after a couple of hours. Spoke with Dr. Estrada and she wants patient to not take any Capecitabine today. Starting tomorrow, ta ke 2 and 2, instead of 3 and 3. Explained all of this to patient. He expressed understanding and will call us back if he has any further questions/issues. KE SPECIALIST documented in this encounter Plan of Treatment Upcoming Encounters Date Type Department Care Team (Late st Contact Info) Description 11/08/2024 2:00 PM INTAKE SPECIALIST Office Visit [facility] - Primary Care - [place] [address] [place] [address] Almaz Sin APRN, HOUSEKEEPING AIDE [address] [address] documented as of this encounter Visit Diagnoses Not on filedocumented in this encounter Care Teams Manager Internet Relationship Specialty Start Date End Date Deena Beach APRN, HOUSEKEEPING AIDE [address] [place] [address] PCP - General Advanced Practice Nurse 09/24/19 documented as of this encounter
--- OUTSIDE RECORDS SUMMARY | 2024-11-07 05:01 | XMS_ITS | Encounter Summary ---
Author Organization [facility] Care Team Providers Care Painter Interior Finish Name Role Phone Deena Beach APRN, SAND CAR WORKER Primary Care P edgar Encounter Details Date Type Department Care Team (Latest Contact Info) Description 01/31/2021 Travel Social History Tobacco Use Types Packs/Day [...] st Contact Info) Description 11/08/2024 2:00 PM TELEVISION ANCHOR Office Visit [facility] - Primary Care - [place] [address] [place] [phone] Almaz Sin APRN, SAND CAR WORKER [address] [place] [address] documented as of this encounter Visit Diagnoses Not on filedocumented in this encounter Care Teams Painter Interior Finish Relationship Specialty Start Date End Date Deena Beach, GROUND WOOD SUPERVISOR, SAND CAR WORKER [address] [place] [address] PCP - General Advanced Practice Nurse 09/24/19 documented as of this encounter
--- OUTSIDE RECORDS SUMMARY | 2024-11-07 05:01 | XMS_ITS | Encounter Summary ---
Author Organization [facility] Address [address] [facility] [place] [address] Phone Care Team Providers Care Barrel Loader Name Role Phone Deena Beach APRN, CNP Primary Care P edgar Reason for Referral * Radiology Services (Routine) - Closed Specialty Diagnoses / Procedures Referred By Baldemar bui Referred To Contact Radiology Diagnoses Malignant neoplasm of sigmoid colon (HCC) Procedures CT CHEST ABDOMEN AND PELVIS W CONTRAST Ayan Estrada MD [address] [place] [address] Phone: tel: fax: Referral ID Status Reason Start Date Expiration Date Visits Re quested Visits Authorized [id number] Closed 04/26/2021 1 1 Reason for Visit * Reason Comments Follow-up Encounter Details Date Type Department Care Team (Late st Contact Info) Description 04/26/2021 2:00 PM CDT Office Visit [facility] [address] [place] [address] Ayan Estrada MD [address] [place] [address] Malignant neoplasm of sigmoid colon (HCC) (Primary [...] Sign Reading Time Taken Comments Blood Pressure 129/60 04/26/2021 2:38 PM CDT Pulse 72 04/26/2021 2:38 PM CDT Temperature 36.4 ??C (97.5 ??F) 04/26/2021 2:38 PM CD T Respiratory Rate 18 04/26/2021 2:38 PM CDT Oxygen Saturation 96% 04/26/2021 2:38 PM CDT Inhaled Oxygen Concentration - - Weight 77.7 kg (171 lb 6.4 oz) 04/26/2021 2:38 P M CDT Height 182.9 cm (6') 04/26/2021 2:38 PM CDT Body Mass Index 23.25 04/26/2021 2:38 PM CDT documented in this encounter Progress Notes * Milagros Herring - 04/26/2021 2:00 PM CDT Outpatient Hem/Onc Progress Note PROGRESS NOTE Lucian Sosa is a very pleasant 81 y.o. male seen today for follow up of colon cancer. Robert reports that he is currently taking Capcitabine 1500 mg BID. Robert reports one episode of acid reflux since increasing the Capecitabine to 1500 mg. Robert denies any abdominal pain or cramping. Robert reports he started this current cycle on 04/21/21. Patient reports he has enough medication to start one more cycle on 05/12/21. Roebrt has mild drying and cracks noted on his hands. He reports they were worse,but improved with Aquaphor. He denies any diarrhea or changes in bowels. DIAGNOSIS/TREATMENT HISTORY: Reviewed patients past medical, surgical, social, and family history. Outpatient Medications Marked as Taking for the 04/26/21 encounter (Office Visit) with Ayan Estrada MD [...] breakfast). 30 Capsule 3 Allergies as of 04/26/2021 ??? (No Known Allergies) REVIEW OF SYSTEMS Review of Systems Constitutional: Negative for diaphoresis, fever and malaise/fatigue. Respiratory: Negative for cough and shortness of breath. Gastrointestinal: Negative for diarrhea. Musculoskeletal: Negative for joint pain. All other systems reviewed and are negative. Physical Exam Physical Exam PAIN ASSESSMENT: no verbal pain complaints today. DATA: Lab Results Component Value Date WBC 4.29 04/20/2021 RBC 3.25 (L) 04/20/2021 HEMOGLOBIN 11.8 (L) 04/20/2021 HEMATOCRIT 36.1 (L) 04/20/2021 MCV 111.1 (H) 04/20/2021 MCH 36.3 (H) 04/20/2021 MCHC 32.7 04/20/2021 PLATELETCNT 208 04/20/2021 RDW 15.9 (H) 04/20/2021 LYMPHOCYTES 38.0 04/20/2021 RELEOS 6.1 04/20/2021 RELBAS 0.5 04/20/2021 ANC 2.00 04/20/2021 MONOCYTES 0.38 04/20/2021 EOSINOPHILS 0.26 04/20/2021 BASOPHILS 0.02 04/20/2021 Lab Results Component Value Date SODIUM 142 04/20/2021 POTASSIUM 4.4 04/20/2021 CHLORIDE 106 04/20/2021 ANIONGAP 11.4 04/20/2021 GLUCOSE 102 (H) 04/20/2021 BUN 16 04/20/2021 CREATININE 0.75 (L) 04/20/2021 TOTALPROTEIN 6.9 04/20/2021 ALBUMIN 4.4 04/20/2021 CALCIUM 9.3 04/20/2021 SGPTALT 11 04/20/2021 ALKALINEPHO 85 04/20/2021 DIAGNOSTIC IMAGING STUDIES: CT C/A/P 10/24/2020: IMPRESSION: [...] including current clinical symptoms, recent labs, and treatment sideeffects with patient. Robert has successfully completed increasing his Capecitabine dose to 1500 mg BID for 14 days. He denies any intolerable side effects related to this medication. Robert has cracks present on his hands, none noted on the feet. Robert is currently on his second to last planned cycle of Capecitabine. He will start his last cycle on 05/12/21 with a planned repeat CT C/A/P in May to evaluate for treatment response. Robert is agreeable to this plan. Patient verbalized understanding ofclinical data review. 2. Due for colonoscopy on [...] as a scribe for Ayan Snowden MD. 04/26/2021, 2:40 PM CDT * Ayan Estrada MD - 04/26/2021 2:00 PM CDT Outpatient Hem/Onc Progress Note PROGRESS NOTE Lucian Sosa is a very pleasant 81 y.o. male seen today for follow up of colon cancer. Robert reports that he is currently taking Capcitabine 1500 mg BID. Robert reports one episode of acid reflux since increasing the Capecitabine to 1500 mg. Robert denies any abdominal pain or cramping. Robert reports he started this current cycle on 04/21/21. Patient reports he has enough medication to start one more cycle on 05/12/21. Robert has mild drying and cracks noted on his hands. He reports they were worse,but improved with Aquaphor. He denies any diarrhea or changes in bowels. DIAGNOSIS/TREATMENT HISTORY: Reviewed patients past medical, surgical, social, and family history. Outpatient Medications Marked as Taking for the 04/26/21 encounter (Office Visit) with Ayan Estrada MD Medication Sig Dispense Refill ??? Acetaminophen (TYLENOL PO) Take by mouth 3 times daily. Indications: 2 tabs TID ??? [DISCONTINUED] capecitabine (XELODA) 500 MG Tablet Take 3 Tablets by mouth 2 times daily 84 Tablet 5 ??? diphenhydrAMINE-APAP, sleep, (TYLENOL PM EXTRA STRENGTH PO) Take by mouth nightly. ??? [DISCONTINUED] omeprazole (PriLOSEC) 20 MG CAPSULE DELAYED RELEASE Take 1 Capsule by mouth every morning (before breakfast). 30 Capsule 3 Allergies as of 04/26/2021 ??? (No Known Allergies) REVIEW OF SYSTEMS Review of Systems Constitutional: Negative for diaphoresis, fever and malaise/fatigue. Respiratory: Negative for cough and shortness of breath. Gastrointestinal: Negative for diarrhea. Musculoskeletal: Negative for joint pain. All other systems reviewed and are negative. Physical Exam Physical Exam PAIN ASSESSMENT: no verbal pain complaints today. DATA: Lab Results Component Value Date WBC 4.29 04/20/2021 RBC 3.25 (L) 04/20/2021 HEMOGLOBIN 11.8 (L) 04/20/2021 HEMATOCRIT 36.1 (L) 04/20/2021 MCV 111.1 (H) 04/20/2021 MCH 36.3 (H) 04/20/2021 MCHC 32.7 04/20/2021 PLATELETCNT 208 04/20/2021 RDW 15.9 (H) 04/20/2021 LYMPHOCYTES 38.0 04/20/2021 RELEOS 6.1 04/20/2021 RELBAS 0.5 04/20/2021 ANC 2.00 04/20/2021 MONOCYTES 0.38 04/20/2021 EOSINOPHILS 0.26 04/20/2021 BASOPHILS 0.02 04/20/2021 Lab Results Component Value Date SODIUM 142 04/20/2021 POTASSIUM 4.4 04/20/2021 CHLORIDE 106 04/20/2021 ANIONGAP 11.4 04/20/2021 GLUCOSE 102 (H) 04/20/2021 BUN 16 04/20/2021 CREATININE 0.75 (L) 04/20/2021 TOTALPROTEIN 6.9 04/20/2021 ALBUMIN 4.4 04/20/2021 CALCIUM 9.3 04/20/2021 SGPTALT 11 04/20/2021 ALKALINEPHO 85 04/20/2021 DIAGNOSTIC IMAGING STUDIES: CT C/A/P 10/24/2020: IMPRESSION: [...] including current clinical symptoms, recent labs, and treatment sideeffects with patient. Robert has successfully completed increasing his Capecitabine dose to 1500 mg BID for 14 days. He denies any intolerable side effects related to this medication. Robert has cracks present on his hands, none noted on the feet. Robert is currently on his second to last planned cycle of Capecitabine. He will start his last cycle on 05/12/21 with a planned repeat CT C/A/P in May to evaluate for treatment response. Robert is agreeable to this plan. Patient verbalized understanding ofclinical data review. 2. Due for colonoscopy on [...] Follow up in 6 weeks with labs and CT scan The patient was given an opportunity to [...] Notes * Interdisciplinary - Hermelinda Blanco - 04/26/2021 2:00 PM CDT The patient has no complaints during today's visit and a pain score of 0. documented in this encounter Plan of Treatment Upcoming Encounters Date Type Department Care Team (Late st Contact Info) Description 11/08/2024 2:00 PM COMPOUND SPECIALIST [facility] - [place] [address] [place] [phone] Almaz Sin, MANAGEMENT PROFESSOR, ZIPPER SETTER CHAINSTITCH [address] [place] [address] documented as of this encounter Results * CT CHEST ABDOMEN [...] AM T: ??06/22/2021 10:05 AM Report ID: [id number] Reading Location: ??[id number] Procedure Note Princess Beckman [...] Princess Beckman M.D. TB: TB Report ID: [id number] Reading Location: [facility] IMPRESSION: 1. Postsurgical changes related to partial [...] further characterization. 5. Additional findings as above. Ayan Niki Estrada MD IMG CT ORDERABLES Final Result documented in this encounter Visit Diagnoses Diagnosis Malignant neoplasm of sigmoid colon (HCC)- Primary Malignant neoplasm of sigmoid colon Gastroesophageal reflux disease without esophagitis Esophageal reflux Malignant neoplasm of sigmoid colon (HCC) Malignant neoplasm of sigmoid colon documented in this encounter Care Teams Barrel Loader Relationship Specialty Start Date End Date Deena Beach, MANAGEMENT PROFESSOR, ZIPPER SETTER CHAINSTITCH [address] [place] [address] PCP - General Advanced Practice Nurse 09/24/19 documented as of this encounter
--- OUTSIDE RECORDS SUMMARY | 2024-11-07 05:02 | XMS_ITS | Encounter Summary ---
Author Organization [facility] Address [address] [facility] [place] [address] Phone Care Team Providers Care Director Of Psychology Name Role Phone Deena Beach APRN, LIME HIDE INSPECTOR Primary Care P veronicashadi Reason for Referral * Other (Routine) - Closed Specialty Diagnoses / Procedures Referred By Baldemar bui Referred To Contact General Surgery Diagnoses Malignant neoplasm of sigmoid colon (HCC) Procedures GENERAL SURGERY PROCEDURE LAP,SURG,COLECTOMY,W/ANAST SIGMOIDOSCOPY FLEX DIAGNOSTIC Juan Mendez MD [address] [place] [address] Phone: tel: fax: Referral ID Status Reason Start Date Expiration Date Visits Re quested Visits Authorized [id number] Closed 10/31/2020 1 1 ESSOR OF FOOD BIOCHEMISTRY Encounter Details Date Type Department Care Team (Late st Contact Info) Description 10/31/2020 Care Management [facility] - General Surgery - [place] [address] [phone] Juan Mendez MD [address] [address] Social History Tobacco Use Types Packs/Day Years Used Date Smoking Tobacco: Former Cigarettes 1 10 0 02/11/1957 - 02/11/1967 Smokeless Tobacco: Never Alcohol Use Standard Drinks/Week Comments Yes 6 (1 standard drink = 0.6 oz pur e alcohol) 2-3 beers nightly Sexually Active Control Partners Comments Not Currently [...] have Coronavirus / COVID-19? No / Unsure 10/24/2020 4:58 PM PROFESSOR OF FOOD BIOCHEMISTRY documented as of this encounter Progress Notes * Juan Mendez MD - 10/31/2020 3:53 PM CST Discussed with the patient. Went over pathology and the CT scan. Will schedule him for laparoscopicpossible open sigmoid colectomy with flexible sigmoidoscopy. Procedure discussed. Risks, benefits, alternatives discussed. He understands and agrees to the procedure done. Because he does not take any medications, likely will not need PCP clearance. Also talked to Dr. Callaway who reaffirms that this mass is in the distal sigmoid colon. ESSOR OF FOOD BIOCHEMISTRY documented in this encounter Plan of Treatment Upcoming Encounters Date Type Department Care Team (Late st Contact Info) Description 11/08/2024 2:00 PM PROFESSOR OF FOOD BIOCHEMISTRY Office Visit [facility] - Primary Care - [place] [address] [address] Almaz Sin APRN, LIME HIDE INSPECTOR [address] [place] [address] Scheduled Orders Name Type Priority Associated Diagnoses Orde r Schedule GENERAL SURGERY PROCEDURE Procedures Routine Malignant neoplasm of sigmoid colon (HCC) Expected: 10/31/2020, Expires: 11/01/2021 documented as of this encounter Visit Diagnoses Diagnosis Malignant neoplasm of sigmoid colon (HCC)- Primary Malignant neoplasm of sigmoid colon documented in this encounter Care Teams Director Of Psychology Relationship Specialty Start Date End Date Deena Beach APRN, LIME HIDE INSPECTOR [address] [place] [address] PCP - General Advanced Practice Nurse 09/24/19 documented as of this encounter
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
--- OUTSIDE RECORDS SUMMARY | 2024-11-07 05:02 | XMS_ITS | Encounter Summary ---
Author Organization [facility] Care Team Providers Care Conservation Scientist Name Role Phone Deena Beach APRN, CNP Primary Care P edgar Encounter Details Date Type Department Care Team (Latest Contact Info) Description 10/23/2020 Travel Social History Tobacco Use Types Packs/Day [...] COVID-19? No / Unsure 10/23/2020 4:51 AM OIL PROSPECTING OBSERVER documented as of this encounter Plan of Treatment Upcoming Encounters Date Type Department Care Team (Late st Contact Info) Description 11/08/2024 2:00 PM OIL PROSPECTING OBSERVER Office Visit [facility] - Primary Care - [place] [address] [place] [phone] Almaz Sin APRN, ROLLER COASTER OPERATOR [address] [place] [address] documented as of this encounter Visit Diagnoses Not on filedocumented in this encounter Care Teams Conservation Scientist Relationship Specialty Start Date End Date Deena Beach APRN, ROLLER COASTER OPERATOR [address], [place] [address] PCP - General Advanced Practice Nurse 09/24/19 documented as of this encounter
--- OUTSIDE RECORDS SUMMARY | 2024-11-07 05:02 | XMS_ITS | Encounter Summary ---
Author Organization [facility] Address [address] [place] [address] Care Team Providers Care Tripper Name Role Phone Jeb Negron DO Primary Care Provider [phone] Encounter Details Date Type Department Care Team (Late st Contact Info) Description 05/29/2002 Outpatient Historical [facility] Primary Care - [address] [place] [address] Jeb Negron DO * Social History Tobacco Use Types Packs/Day Years Used Date Smoking Tobacco: Never Assessed Sex and Gender Information Value Date Recorded Sex Assigned at Not on file Gender Identity Not on file Sexual Orientation Not on file documented as of this encounter Plan of Treatment Not on file documented as of this encounter Visit Diagnoses Not on filedocumented in this encounter Care Teams Tripper Relationship Specialty Start Date End Date Jeb Negron DO * PCP - General 12/20/02 documented as of this encounter
--- OUTSIDE RECORDS SUMMARY | 2024-11-07 05:02 | XMS_ITS | Encounter Summary ---
Author Organization [facility] Address [address] [place] [address] Phone Care Team Providers Care Event Host Name Role Phone Deena Beach APRN, CNP Primary Care P [email or web address] Reason for Referral * Radiology Services (Routine) - Closed Specialty Diagnoses / Procedures Referred By Baldemar bui Referred To Contact Radiology Diagnoses Pre-op testing Procedures EKG 12 LEAD Vladimir Hill MD [address] [place] [address] Phone: tel: fax: Referral ID Status Reason Start Date Expiration Date Visits Re quested Visits Authorized [id number] Closed 11/06/2020 1 1 D MIXER Reason for Visit * Auth/Cert Specialty Diagnoses / Procedures Referred By Baldemar bui Referred To Contact Diagnoses MALIGNANT NEOPLASM SIGMOID COLON Procedures LAPAROSCOPIC HAND ASSISTED COLON RESECTION SIGMOIDOSCOPY FLEXIBLE Referral ID Status Reason Start Date Expiration Date Visits Re quested Visits Authorized [id number] 1 1 Encounter Details Date Type Department Care Team (Latest Contact Info) Description 11/10/2020 10:21 AM SOUND MIXER - 11/10/2020 11:59 PM SOUND MIXER Hospital [facility] [address] [place] [address] Vladimir Hill MD [address] [place] [address] Discharge Disposition: Discharged to home or Selfcare [...] have Coronavirus / COVID-19? No / Unsure 11/10/2020 10:14 AM SOUND MIXER documented as of this encounter Medications at Time of Discharge acetaminophen (TYLENOL) 325 MG Tablet Take 1 Tab by mouth every 6 hours as needed for Mild or more severe pain or Fever for up to 5 days. Do not exceed 4000 mg of acetaminophen in 24 hour from all sources. 120 Tab 11/15/2020 1 aspirin 325 MG Tablet Take 325 mg by mouth once a week. Friday 1 diphenhydrAMINE- APAP, sleep, (TYLENOL PM EXTRA STRENGTH PO) Take by mouth nightly. 3 ibuprofen (MOTRIN) 200 MG Tablet Take 2 Tabs by mouth every 6 hours as needed for Mild or more severe pain for up to 5 days. 100 Tab 11/15/2020 1 metroNIDAZOLE (FLAGYL) 500 MG TabletIndication s:Malignant neoplasm of sigmoid colon (HCC) Take two 500mg tablets by mouth at 2pm, 3pm, and 10pm the day before surgery. 6 Tab 11/03/2020 1 neomycin 500 MG TabletIndication s:Malignant neoplasm of sigmoid colon (HCC) Take 500mg at 2pm, 3pm, and 10pm the day before surgery. 3 Tab 11/03/2020 1 oxyCODONE (ROXICODONE) 5 MG Tablet Take 1 Tab by mouth every 4 hours as needed for Severe pain. 10 Tab 11/15/2020 documented as of this encounter Plan of Treatment Upcoming Encounters Date Type Department Care Team (Late st Contact Info) Description 11/08/2024 2:00 PM SOUND MIXER [facility] Primary Care - [place] [address] [place] [phone] Merrick Almaz M, FLEET SALES ASSOCIATE, CORPORATE SAFETY COORDINATOR [address] [place], [place] [id number] documented as of this encounter Procedures Procedure Name Priority Date/Time Associated Diagnosis Comments EKG 12 LEAD Routine 11/10/2020 10:32 AM SOUND MIXER Pre-op testing documented in this encounter Results * EKG 12 LEAD (11/10/2020 10:32 AM SOUND MIXER) Ventricular Rate BPM EXTERNAL EKG Atrial Rate BPM EXTERNAL EKG P-R Interval 162 ms EXTERNAL EKG QRS Duration 82 ms EXTERNAL EKG Q-T Duration 382 ms EXTERNAL EKG QTC CALCULATION 438 ms EXTERNAL EKG P Florence 60 degrees EXTERNAL EKG R [place] 9 degrees EXTERNAL EKG T [place] 55 degrees EXTERNAL EKG 11/10/2020 10:3 2 AM SOUND MIXER Impressions EXTERNAL EKG - 11/11/2020 12:52 PM SOUND MIXER Sinus rhythm Within normal limits as previously Comparison Summary: No significant change Summary: Normal ECG Compared with:02/10/2017 12:43 PM Confirmed by Xu Carbone [id number] on 11/11/2020 12:52:14 PM Narrative Procedure Note Gigi Mcnair MD - 11/11/2020 IMPRESSION: Sinus rhythm Within normal limits as previously Comparison Summary: No significant change Summary: Normal ECG Compared with:02/10/2017 12:43 PM Confirmed by Xu Carbone [id number] on 11/11/2020 12:52:14 PM Vladimir Hill MD IMG ECG ORDERABLES Final Resu lt EXTERNAL EKG documented in this encounter Visit Diagnoses Diagnosis Pre-op testing Preoperative examination, unspecified documented in this encounter Care Teams Event Host Relationship Specialty Start Date End Date Deena Beach APRN, CORPORATE SAFETY COORDINATOR [address] [place] [address] PCP - General Advanced Practice Nurse 09/24/19 documented as of this encounter
--- OUTSIDE RECORDS SUMMARY | 2024-11-07 05:02 | XMS_ITS | Encounter Summary ---
Author Organization [facility] Address [address] [place] [address] Care Team Providers Care Clean Out Driller Helper Name Role Phone Jeb Negron DO Primary Care Provider [phone] Encounter Details Date Type Department Care Team (Late st Contact Info) Description 12/20/2002 Outpatient Historical [facility] Primary Care - [address] [place] [address] Jeb Negron DO * Social History [...] on filedocumented in this encounter Care Teams Clean Out Driller Helper Relationship Specialty Start Date End Date Jeb Negron DO * PCP - General 12/20/02 documented as of this encounter
--- OUTSIDE RECORDS SUMMARY | 2024-11-07 05:02 | XMS_ITS | Encounter Summary ---
Author Organization [facility] Address [address] [place] [address] Phone Care Team Providers Care News Writer Name Role Phone Deena Beach APRN, MYRNA Primary Care P edgar Encounter Details Date Type Department Care Team (Late Contact Info) Description 10/12/2020 Telephone [facility] - Gastro[facility] [address] [place] [address] Joe Callaway, DO [address] [address] Social History Tobacco Use Types Packs/Day Years Used Date Smoking Tobacco: Former Cigarettes Q uit: 02/11/1967 Smokeless Tobacco: Never Alcohol Use Standard [...] have Coronavirus / COVID-19? No / Unsure 10/12/2020 10:03 AM COMPUTER MECHANIC documented as of this encounter Miscellaneous Notes * Telephone Encounter - Eva García - 10/12/2020 3:03 PM CST Colon / split prep instructions UTER MECHANIC documented in this encounter Plan of Treatment Upcoming Encounters Date Type Department Care Team (Late st Contact Info) Description 11/08/2024 2:00 PM COMPUTER MECHANIC [facility] Care - [place] [address] [place] [address] Almaz Sin APRN, FRAME TABLE OPERATOR [address] [place] [address] documented as of this encounter Visit Diagnoses Not on filedocumented in this encounter Care Teams News Writer Relationship Specialty Start Date End Date Deena Beach APRN, FRAME TABLE OPERATOR [address] [place] [address] PCP - General Advanced Practice Nurse 09/24/19 documented as of this encounter
--- OUTSIDE RECORDS SUMMARY | 2024-11-07 05:02 | XMS_ITS | Encounter Summary ---
Author Organization [facility] Address [address] [place] [address] Phone Care Team Providers Care Greenhouse Superintendent Name Role Phone Deena Beach APRN, MYRNA Primary Care P rovider Encounter Details Date Type Department Care Team (Late st Contact Info) Description 10/16/2020 Telephone [facility] [address] [place] [address] Deena Beach APRN, GLUER AND SLICER HAND [address] [place] [address] Social History Tobacco Use Types Packs/Day Years [...] COVID-19? No / Unsure 10/12/2020 10:03 AM PORT TRAFFIC MANAGER documented as of this encounter Miscellaneous Notes * Telephone Encounter - Marta Barrett - 10/16/2020 10:39 AM CST Transfer of care TRAFFIC MANAGER documented in this encounter Plan of Treatment Upcoming Encounters Date Type Department Care Team (Late st Contact Info) Description 11/08/2024 2:00 PM PORT TRAFFIC MANAGER Office Visit [facility] - Primary Care - [place] [address] [place] [address] Almaz Sin APRN, GLUER AND SLICER HAND [address] [place] [address] documented as of this encounter Visit Diagnoses Not on filedocumented in this encounter Care Teams Greenhouse Superintendent Relationship Specialty Start Date End Date Deena Beach APRN, GLUER AND SLICER HAND [address] [place] [address] PCP - General Advanced Practice Nurse 09/24/19 documented as of this encounter
--- OUTSIDE RECORDS SUMMARY | 2024-11-07 05:02 | XMS_ITS | Encounter Summary ---
Author Organization [facility] Address [address] [place] [address] Phone Care Team Providers Care Formula Clerk Name Role Phone Deena Beach APRN, MYRNA Primary Care P edgar Encounter Details Date Type Department Care Team (Late Contact Info) Description 10/19/2020 Telephone [facility] - Gastroenterology [facility] [address] [place] [address] Joe Callaway, DO [address] [address] Social History Tobacco Use Types [...] have Coronavirus / COVID-19? No / Unsure 10/18/2020 9:16 AM PESTICIDE CHEMIST documented as of this encounter Miscellaneous Notes * Telephone Encounter - Lilliam Johnson RN - 10/19/2020 7:40 AM CST COVID-19 Testing Priority ?? Close contact with a suspected or laboratory confirmed COVID-19 patient within 14 days of symptom onset? No/Unsure (Previous Answer - No) ?? History of travel from affected geographic areas within 14 days of symptom onset? No/Unsure (Previous Answer - No) ?? Patient is from facility with clusters of infection not due to influenza and is suspected to be due to COVID-19? No (Previous Answer - No) ?? Patient is at higher risk for complications of COVID-19 (age >= 65 years, immunocompromised, chronic medical conditions, etc)? Yes (Previous Answer - No) ?? Patient is a healthcare worker or first officer? No (Previous Answer - No) ?? Patient is a resident of a congregate living facility (SNF, snf, nursing home)? No (Previous Answer - No) ?? The patient has cough or shortness of breath or any two of the following; fever, chills, muscle pain, headache, sore throat, new loss of smell, or new loss of taste (if not already answered in Travel & Exposure Screening)? No (Previous Answer - No) ICIDE CHEMIST documented in this encounter Plan of Treatment Upcoming Encounters Date Type Department Care Team (Late st Contact Info) Description 11/08/2024 2:00 PM PESTICIDE CHEMIST Office Visit [facility] - Primary Care - [place] [address] [place] [address] Almaz Sin, WHOLESALE ACCOUNT MANAGER, CLAY PROCESSING FACTORY WORKER [address] [place], [place] [id number] documented as of this encounter Results * SARS-COV-2 BY MOLECULAR (10/21/2020 9:06 AM PESTICIDE CHEMIST) SARSCOV2 NOT DETECTED (Referen ce Range for this test is Not Detected ) [facility] THERMOFISHER FAST DX 10/21/2020 7:56 PM PESTICIDE CHEMIST [facility] Comment:This test was perfor med by a PCR method. Other NASOPHARYNGEAL STRUCTURE / Unknown Non-Phlebotomy Collection / Unknown 10/21/2020 9:06 AM PESTICIDE CHEMIST 10/21/2020 9:58 AM PESTICIDE CHEMIST Narrative [facility] - 10/21/2020 7:56 PM PESTICIDE CHEMIST Authorized Fact Sheets about this test for providers and patients are available at: https://www.fda.gov/medical-devices/emyxyyeue-klcotxlkuz-wcbcnba-devices/emergen cy-us e-authorizations us Joe Callaway DO MICROBIOLOGY - GENERAL ORDERABL ES Final Result [facility] [address] [place] [address], [place] documented in this encounter Visit Diagnoses Diagnosis Preop testing- Primary Preoperative examination, unspecified documented in this encounter Care Teams Formula Clerk Relationship Specialty Start Date End Date Deena Beach APRN, CLAY PROCESSING FACTORY WORKER [address] [place] [address] PCP - General Advanced Practice Nurse 09/24/19 documented as of this encounter
--- OUTSIDE RECORDS SUMMARY | 2024-11-07 05:02 | XMS_ITS | Encounter Summary ---
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 HEParin (porcine) injection 5,000 Units 5,000 Units, Subcutaneous, EVERY 8 HOURS SCHEDULED (3 times per day), First dose on Fri11/13/20 at 1600, Until Discontinued, POST-OP (NURSING UNIT) 1503 (Given - Provider: Radha Soler RN) 0053 (Given - Provider: Jean-Pierre Porter RN)0709 (Given - Provider: Radha Soler RN)1600 (Not Given - Provider: Radha Soler RN - Reason: Patient/family refused) 0022 (Given - Provider: Vanita Sommers RN)0734 (Given - Provider: Rodríguez Nuñez, GLORIA) ketorolac (TORADOL) injection 15 mg 15 mg, Intravenous, EVERY 6 HOURS, 16 doses, First dose on Fri11/13/20 at 1430, Last dose on Fri11/17/20 at 0830, For Moderate Pain, and pain unrelieved by Mild Analgesic medications (if ordered)., POST-OP (NURSING UNIT) 1503 (Given - Provider: Radha Soler RN)2232 (Given - Provider: Jean-Pierre Porter RN) 0257 (Given - Provider: Jean-Pierre Porter, GLORIA)0830 (Given - Provider: Radha Soler RN)1430 (Not [...] (New Bag - Provider: Doris Bowden APN, SHREDDING FLOOR EQUIPMENT OPERATOR)1127 (Stopped - Provider: Doris Bowden APN, NAREN) ondansetron (ZOFRAN) injection 4 mg (COMPLETED) 4 mg, Intravenous, ONCE, 1 dose, On Fri11/13/20 at 0800, PRE-OP (SURGERY) 0802 (Given - Provider: Lionel Baeza RN) Continuous Medication Order 11/13/2020 11/14/2020 11/15/2020 HYDROmorphone (DILAUDID) X RAY ELECTRONICS WIREMAN 1 mg/mL (CANCELED) Intravenous, X RAY ELECTRONICS WIREMAN, Starting on Fri11/13/20 at 1430, Until Fri11/15/20 at 0816, POST-OP (NURSING UNIT) 1455 (X RAY ELECTRONICS WIREMAN Syringe - Provider: Radha Soler RN) 0817 (Stopped - Provider: Rodríguez Nuñez RN) lactated ringers infusion (CANCELED) at 20 mL/hr, Intravenous, CONTINUOUS, Starting on Fri11/13/20 at 0800, Until Fri11/13/20 at 1412, PRE-OP (SURGERY) 0755 (New Bag - Provider: Lionel Baeza, RN)1431 (Stopped - Provider: Radha Soler RN) lactated ringers infusion (CANCELED) at 100 mL/hr, Intravenous, CONTINUOUS, Starting on Fri11/13/20 at 1430, Until Fri11/15/20 at 0926, POST-OP (NURSING UNIT) 1502 (New Bag - Provider: Radha Soler RN) 0058 (Stopped - Provider: Jean-Pierre Porter, GLORIA)0059 (New Bag - Provider: Jean-Pierre Porter, RN)1055 (New Bag - Provider: Radha Soler RN)2055 (New Bag - Provider: Vanita Sommers RN) 0733 (New Bag - Provider: Rodríguez Nuñez RN)0927 (Stopped - Provider: Rodríguez Nuñez RN) PRN Medication Order 11/13/2020 11/14/2020 11/15/2020 bupivacaine-EPINEPHrine 0.5% -[id number] injection SOLN (CANCELED) ONCE (in OR), Starting on Fri11/13/20 at 1255, Until Fri11/13/20 at 1321, INTRA-OP 1255 (Given - Provider: Juan Mendez MD)1300 (IV Stop - Provider: Radha Soler, RN) ondansetron (ZOFRAN) injection 4 mg 4 mg, [...] MD) documented in this encounter Care Teams Auto Body Repairer Relationship Specialty Start Date End Date Deena Beach APRN, CYLINDER WORKER [address] [place] [address] PCP - General Advanced Practice Nurse 09/24/19 documented as of this encounter
--- OUTSIDE RECORDS SUMMARY | 2024-11-07 05:02 | XMS_ITS | Encounter Summary ---
Author Organization [facility] Address [address] [place] [address] Phone Care Team Providers Care Director Specialty Name Role Phone Deena Beach APRN, CNP Primary Care P rovider Reason for Visit * Reason Comments Transition of Care Encounter Details Date Type Department Care Team (Late st Contact Info) Description 10/18/2020 9:30 AM ASTRO TECHNICIAN Office Visit [facility] - [facility] Care - [place] [address] [place] [id number] Deena Beach APRN, CNP [address] [place] [address] Diarrhea, unspecified type (Primary Dx); BRBPR (bright red blood per rectum); Screening for heart disease; Screening for prostate cancer; Encounter for immunization Discharge Disposition: Discharged to home or Selfcare Social History Tobacco Use Types Packs/Day Years Used Date Smoking Tobacco: Former Cigarettes Q uit: 02/11/1967 Smokeless Tobacco: Never Tobacco Cessation:Counseling Given: [...] COVID-19? No / Unsure 10/18/2020 9:16 AM ASTRO TECHNICIAN documented as of this encounter Last Filed Vital Signs Vital Sign Reading Time Taken Comments Blood Pressure 130/64 10/18/2020 9:21 AM ASTRO TECHNICIAN Pulse 77 10/18/2020 9:21 AM ASTRO TECHNICIAN Temperature 36.3 ??C (97.4 ??F) 10/18/2020 9:21 AM CS T Respiratory Rate 20 10/18/2020 9:21 AM ASTRO TECHNICIAN Oxygen Saturation 97% 10/18/2020 9:21 AM ASTRO TECHNICIAN Inhaled Oxygen Concentration - - Weight 80.6 kg (177 lb 12.8 oz) 10/18/2020 9:21 AM ASTRO TECHNICIAN Height 182.9 cm (6') 10/18/2020 9:21 AM ASTRO TECHNICIAN Body Mass Index 24.11 10/18/2020 9:21 AM ASTRO TECHNICIAN documented in this encounter Patient Instructions * Patient Instructions* Deena Beach APN, CNP - 10/18/2020 9:30 AM ASTRO TECHNICIAN Have colonoscopy as scheduled. Have fasting labs done and someone from the office will call you with results or mail a letter if all is normal. Please continue with a balanced lifestyle of exercise and healthy eating. If any question, please call. Thanks for coming in today! To continue to provide excellent patient care, you may receive a survey regarding your visit today.To help us serve you better, please complete and return. These surveys are completely anonymous. If you have any concerns/ questions regarding today's visit please call. O TECHNICIAN O TECHNICIAN O TECHNICIAN documented in this encounter Progress Notes * Marta Barrett - 10/18/2020 9:30 AM CST Pre-Visit Planning Documentation Main reason for visit? Transfer of care Any other concerns or questions that should be discussed at the visit? No Recent ED Visits and Hospitalizations 02/13/17 Vahid Martinez MD, SAHCPACUII Complete tear of left rotator cuff, Admission (Discharged) Health Maintenance Due Topic Date Due ??? DTaP/Tdap/Td Immunization (1 - Tdap) 1947 ??? Zoster Immunization (1 of 2) 02/07/1992 ??? Influenza Immunization (1) 06/27/2020 ??? Pneumococcal Immunization (65+ years) (2 of 2 - PPSV23) 09/27/2020 Orders due are pended? no Pre-Visit Planning Status: Complete- chart review only Communication Method Used to Complete PVP: Unable to Reach Pre-Visit Planning documented on 10/16/20 10:38 AM ASTRO TECHNICIAN by Marta Barrett O TECHNICIAN * Ella Carolina, LITIGATION DOCKET MANAGER - 10/18/2020 9:30 AM CST Lucian Sosa, 80 y.o., male is here for No chief complaint on file. Medication Refills: Patient reports/denies need for medication refills. Orders Pended: no Requested Prescriptions No prescriptions requested or ordered in this encounter Home Medications Medication Sig Start Date End Date Taking? Authorizing Provider acetaminophen (TYLENOL) 500 MG Tablet Take 500 mg by mouth 4 times daily. Yes Haydee Garcia MD albuterol (PROAIR HFA) 108 (90 Base) MCG/ACT Aerosol Solution take 2 Puffs by inhalation every 4 hours as needed for Wheezing or Cough. Patient not taking: Reported on 10/12/2020 09/22/19 Janel Hobson APN, CASKET COVERER aspirin 325 MG Tablet Take 325 mg by mouth once a week. Friday Yes Haydee Garcia MD diphenhydrAMINE-APAP, sleep, (TYLENOL PM EXTRA STRENGTH PO) Take by mouth nightly. Yes Haydee Garcia MD Glucosamine HCl (GLUCOSAMINE PO) Take by mouth. Haydee Garcia MD There are no discontinued medications. I have reviewed the home medication list with the patient and have reconciled discrepancies. The list is accurate to the best of my knowledge. Smoking Status: Social History Tobacco Use ??? Smoking status: Former Smoker Quit date: 02/11/1967 Years since quittin.7 ??? Smokeless tobacco: Never Used Substance Use Topics ??? Alcohol use: Yes Alcohol/week: 3.6 oz Types: 6 Cans of beer per week ??? Drug use: No Smoking Cessation Counseling Given: no Health Care Maintenance: Health Maintenance Due Topic Date Due ??? DTaP/Tdap/Td Immunization (1 - Tdap) 1947 ??? Zoster Immunization (1 of 2) 02/07/1992 ??? Influenza Immunization (1) 06/27/2020 ??? Pneumococcal Immunization (65+ years) (2 of 2 - PPSV23) 09/27/2020 Orders Pended: yes The following BPA's have been addressed with the patient today: Flu O TECHNICIAN * Ella Carolina CMA - 10/18/2020 9:30 AM CST Lucian is here for Flu immunizations per order of Deena Beach WARBLE SAW OPERATOR-BC dated 10/18/20. Administered in left deltoid . Vaccine Information Sheet(s) were given on 10/18/20. Verbal consent wasobtained. Lucian tolerated the immunization well without incident. See Immunization activity fordetails. Deena Robertson APN, CASKET COVERER - 10/18/2020 9:30 AM CST HPI Patient is a 80 y.o. male who presents today for JYOTI from [facility] and f/u on diarrhea. Patient was seen in [facility] on 10/12 for chronic constipation that turned into diarrhea blood in stool. Patient states that his diarrhea is still ongoing. It is liquid approximately 5 episodes per day. He states that the blood in stool has been better the past week. States sometimes he has some left upper quadrant pain, but has not for the past few days and is feeling pretty good today. Fasting labs are previously injured, he still has not had these done. He has a colonoscopy scheduled for Friday. ROS Fourteen point review of systems negative except as documented in HPI. Physical Exam Vitals signs and nursing note reviewed. Constitutional: General: He is not in acute distress. Appearance: He is well-developed. HENT: Head: Normocephalic and atraumatic. Right Ear: Tympanic membrane, ear canal and external ear normal. Left Ear: Tympanic membrane, ear canal and external ear normal. Nose: Nose normal. Eyes: Conjunctiva/sclera: Conjunctivae normal. Pupils: Pupils are equal, round, and reactive to light. Neck: Musculoskeletal: Normal range of motion and neck supple. Thyroid: No thyromegaly. Cardiovascular: Rate and Rhythm: Normal rate and regular rhythm. Heart sounds: Normal heart sounds. No murmur. No friction rub. No gallop. Pulmonary: Effort: Pulmonary effort is normal. No respiratory distress. Breath sounds: Normal breath sounds. No wheezing. Abdominal: General: Bowel sounds are normal. There is no distension. Palpations: Abdomen is soft. There is no mass. Tenderness: There is no abdominal tenderness. There is no guarding or rebound. Hernia: No hernia is present. Musculoskeletal: Normal range of motion. General: No tenderness or deformity. Lymphadenopathy: Cervical: No cervical adenopathy. Skin: General: Skin is warm and dry. Capillary Refill: Capillary refill takes less than 2 seconds. Neurological: Mental Status: He is alert and oriented to person, place, and time. Motor: No abnormal muscle tone. Coordination: Coordination normal. Deep Tendon Reflexes: Reflexes normal. Psychiatric: Behavior: Behavior normal. Thought Content: Thought content normal. Judgment: Judgment normal. Vitals: 10/18/20 0921 BP: 130/64 BP Location: Right Arm BP Position: Sitting BP Cuff Size: Regular Pulse: 77 Resp: 20 Temp: 97.4 ??F (36.3 ??C) TempSrc: Temporal SpO2: 97% Weight: 177 lb 12.8 oz (80.6 kg) Height: 6' (1.829 m) Body mass index is 24.11 kg/m??. Past, family, and social history reviewed and updated in the chart. Assessment/Plan: 1. Diarrhea, unspecified type 2. BRBPR (bright red blood per rectum) Blood improving, colonoscopy scheduled for Friday, encouraged to keep this appt 3. Screening for heart disease 4. Screening for prostate cancer Needs labs, they are ordered, encouraged to get these done 5. Encounter for immunization - INFLUENZA VACCINE QUAD IM - INFLUENZA (>3) IMMUNIZATION QUESTIONS Patient Instructions Have colonoscopy as scheduled. Have fasting labs done and someone from the office will call you with results or mail a letter if all is normal. Please continue with a balanced lifestyle of exercise and healthy eating. If any question, please call. Thanks for coming in today! To continue to provide excellent patient care, you may receive a survey regarding your visit today.To help us serve you better, please complete and return. These surveys are completely anonymous. If you have any concerns/ questions regarding today's visit please call. Patient verbalizes understanding and agrees with plan of care as noted above. New medication discussed with patient and family, including action of medication, potential side effects, interactions, and consequences for not taking it. Patient states understanding of new medication instructions. Written education on new medication added to patient printed AVS. An After Visit Summary was printed and given to the patient. Documentation for this visit on 10/18/20 was completed using a template. I have seen and examined the patient. Everything documented was personally performed at this visit with the necessary additions, deletions and changes made as appropriate. O TECHNICIAN documented in this encounter Plan of Treatment Upcoming Encounters Date Type Department Care Team (Late st Contact Info) Description 11/08/2024 2:00 PM ASTRO TECHNICIAN Office Visit [facility] - [facility] Care - [place] [address] [place] [address] Almaz Sin APRN, CASKET COVERER [address] [place] [address] documented as of this encounter Visit Diagnoses Diagnosis Diarrhea, unspecified type- Primary BRBPR (bright red blood per rectum) Hemorrhage of rectum and anus Screening for heart disease Screening for other and unspecified cardiovascular conditions Screening for prostate cancer Special screening for malignant neoplasm of prostate Encounter for immunization Need for other specified prophylactic vaccination against single bacterial disease documented in this encounter Care Teams Director Specialty Relationship Specialty Start Date End Date Deena Beach APRN, CASKET COVERER [address] [place] [address] PCP - General Advanced Practice Nurse 09/24/19 documented as of this encounter
--- OUTSIDE RECORDS SUMMARY | 2024-11-07 05:02 | XMS_ITS | Encounter Summary ---
Author Organization [facility] Address [address] [place] [address] Phone Care Team Providers Care Wood Machine Carver Name Role Phone eDena Beach APRN, INTERNET SALESPERSON Primary Care P [facility] Reason for Referral * Other (Routine) - Closed Specialty Diagnoses / Procedures Referred By Baldemar bui Referred To Contact Gastroenterology Diagnoses Malignant neoplasm of sigmoid colon (HCC) Procedures GASTRO PROCEDURE scheduled colonosocpy with Dr. Callaway 01/22/2021 Joe Callaway DO Phone: tel: fax: Joe Callaway DO Phone: tel: fax: Referral ID Status Reason Start Date Expiration Date Visits Re quested Visits Authorized [id number] Closed 11/01/2020 1 1 TECHNICIAN Reason for Visit * Reason Onset Date Comments Results 10/31/2020 colonoscopy/lab work/ct scan Encounter Details Date Type Department Care Team ([facility] Contact Info) Description 10/31/2020 Telephone [facility] - Gastroenterology - [place] [address] [place] [phone] Joe Callaway DO [address] [address] Results (colonoscopy/lab work/ct scan) Social History Tobacco Use Types Packs/Day Years [...] COVID-19? No / Unsure 10/24/2020 4:58 PM CARE TECHNICIAN documented as of this encounter Miscellaneous Notes * Telephone Encounter - Lilliam Johnson RN - 10/31/2020 1:44 PM CST Patient notified of results and verbalizes understanding. Colonoscopy order pended to Dr. Callaway. Message sent to Josy in GI to schedule Patient told by Dr. Mendez he was waiting on the ct and final pathology. Copy sent to Dr. Mendez. TECHNICIAN * Telephone Encounter - Lilliam Johnson RN - 10/31/2020 1:44 PM CST ----- Message from Joe Callaway DO sent at 10/23/2020 9:40 AM CARE TECHNICIAN ----- Normal. Joe Callaway, DO 10/31/2020 10:38 AM CARE TECHNICIAN Patient already knows that the biopsies show cancer. ??Recheck colonoscopy 3 months. ??Make sure hefollows up with surgery. Joe Callaway, DO 10/31/2020 10:53 AM CARE TECHNICIAN No cancer in the chest or liver. ??Shows the rectal cancer. ??May have some lymph nodes present. ??Copy to Dr. Mendez. TECHNICIAN TECHNICIAN documented in this encounter Plan of Treatment Upcoming Encounters Date Type Department Care Team (Late st Contact Info) Description 11/08/2024 2:00 PM CARE TECHNICIAN Office Visit [facility] - Primary Care - [place] [address] [place] [address] Almaz Sin APRN, INTERNET SALESPERSON [address] [place] [address] Scheduled Orders Name Type Priority Associated Diagnoses Orde r Schedule GASTRO PROCEDURE Procedures Routine Malignant neoplasm of sigmoid colon (HCC) Expected: 10/31/2021 (Approximate), Expires: 11/01/2022 documented as of this encounter Visit Diagnoses Diagnosis Malignant neoplasm of sigmoid colon (HCC)- Primary Malignant neoplasm of sigmoid colon documented in this encounter Care Teams Wood Machine Carver Relationship Specialty Start Date End Date Deena Beach APRN, INTERNET SALESPERSON [address] [place] [address] PCP - General Advanced Practice Nurse 09/24/19 documented as of this encounter
--- OUTSIDE RECORDS SUMMARY | 2024-11-07 05:02 | XMS_ITS | Encounter Summary ---
Author Organization [facility] Address [address] [place] [address] Phone Care Team Providers Care Beauty Therapist Name Role Phone Brea Rollins APRN, SURVEYING CREW RODMAN Primary [facility] Reason for Referral * Consult, Test & Initiate Treatment (Less Than 3 Days) - Closed Specialty Diagnoses / Procedures Referred By Baldemar bui Referred To Contact Gastroenterology Diagnoses Chronic diarrhea Blood in stool, leta Procedures scheduled colonoscopy with Dr. Callaway 10/23/2020 Brea Rollins APRN, SURVEYING CREW RODMAN [address] [place] [address] Phone: tel: fax: Joe Callaway DO Phone: tel: fax: Referral ID Status Reason Start Date Expiration Date Visits Re quested Visits Authorized [id number] Closed 10/12/2020 1 1 Scheduling Instructions Lucian is being referred for scope for poss Colon CA - see notes on loose stools and blood in stool issues.. See below for Lucian's current medications, allergies and problem list. Please contact patient for scheduling questions or concerns. CURRENT MEDS: Current Outpatient Medications: ? ? acetaminophen (TYLENOL) 500 MG Tablet, Take 500 mg by mouth 4 times daily., Disp: , Rfl: ? ? albuterol (PROAIR HFA) 108 (90 Base) MCG/ACT Aerosol Solution, take 2 Puffs by inhalation every 4 hours as needed for Wheezing or Cough. (Patient not taking: Reported on 10/12/2020), Disp: 1 Inhaler, Rfl: 0 ? ? Glucosamine HCl (GLUCOSAMINE PO), Take by mouth., Disp: , Rfl: No current facility-administered medications for this visit. ALLERGIES: No Known Allergies PROBLEM LIST: Patient Active Problem List: Tear of left rotator cuff AURANT ASSISTANT Encounter Details Date Type Department Care Team (Late st Contact Info) Description 10/12/2020 Telephone [facility] [address] [place] [address] Ophelia Coleman APRN, CNP [address] [place] [address] Social History Tobacco Use Types [...] COVID-19? No / Unsure 10/12/2020 10:03 AM RESTAURANT ASSISTANT documented as of this encounter Miscellaneous Notes * Telephone Encounter - Brooklyn Guillaume CMA - 10/13/2020 2:13 PM CST Lucian Sosa notified, verbalized understanding. JYOTI office visit scheduled for 10/18/20. AURANT ASSISTANT * Telephone Encounter - Brooklyn Guillaume CMA - 10/12/2020 11:15 AM RESTAURANT ASSISTANT Attempted to contact Robert, was not available. Left message with woman who answered phone for him tocall office. AURANT ASSISTANT * Addendum Note - Brea Rollins APN, CNP - 10/12/2020 11:08 AM RESTAURANT ASSISTANT Addended by: BREA ROLLINS on: 10/12/2020 11:08 AM Modules accepted: Orders AURANT ASSISTANT * Telephone Encounter - Brea Rollins APN, CNP - 10/12/2020 11:07 AM CST GI referral and labs placed. Please call patient and set up a routine 30m visit as he has not been seen in quite some time. Inform him GI will be contacting him soon and to call with any new or worsening symptoms. AURANT ASSISTANT * Telephone Encounter - Ophelia Coleman APN, CNP - 10/12/2020 10:45 AM RESTAURANT ASSISTANT Hx of chronic constipation with stools every 3-4 days for most of his life. Then a year ago he started taking stool softeners daily and developed diarrhea 3 months ago. Stopped stool softeners 2-3 months ago and has continued to have diarrhea loose thin soft stool 5-6 times a day and some bright red blood in stool and some white mucus. No abd tenderness and denies feeling weak or fatigued. Last labs are from 08/2019 Mother had colon CA Please follow up as we discussed. AURANT ASSISTANT documented in this encounter Plan of Treatment Upcoming Encounters Date Type Department Care Team (Late st Contact Info) Description 11/08/2024 2:00 PM RESTAURANT ASSISTANT Office Visit [facility] - Primary Care - [place]ina [address] [place] [address] Almaz Sin GUIDE CRUISE, SURVEYING CREW RODMAN [address] [place] [address] Scheduled Referrals Name Type Priority Associated Diagnoses Order Schedule GASTROENTEROLOGY REFERRAL Outpatient Referral Less Than 3 Days Chronic diarrhea Blood in stool, leta Expected: 12/12/2020, Expires: 12/12/2020 documented as of this encounter Results * PSA SCREEN (10/21/2020 9:10 AM RESTAURANT ASSISTANT) [facility] PSA SCREEN, TOTAL 1.18 <=4.00 ng/mL 10/21/2020 10:28 AM RESTAURANT ASSISTANT [facility] Blood Venipuncture / Unknown 10/21/2020 9:10 AM RESTAURANT ASSISTANT 10/21/2020 9:54 AM RESTAURANT ASSISTANT Narrative [facility] - 10/21/2020 10:28 AM RESTAURANT ASSISTANT PSA NOTE: The PSA value should be used in conjunction with information available from clinical evaluation and other diagnostic procedures. Brea Rollins APRN, CNP CHEMISTRY ORDER AMRITA Final Result [facility] [address] [place] [address] * LIPID PANEL (10/21/2020 9:10 AM RESTAURANT ASSISTANT) [facility] CHOLESTEROL 173 <=200 mg/dL 10/21/2020 10:53 AM RESTAURANT ASSISTANT [facility] TRIGLYCERIDES 75 <150 mg/dL 10/21/2020 10:53 AM RESTAURANT ASSISTANT [facility] HDL CHOLESTEROL 61.5 >40 mg/dL 0 10:53 AM [facility] LDL 97 5 - 130 mg/dL 10/21/2020 10:53 AM [facility] VLDL 15 5 - 55 mg/dL 10/21/2020 10:53 AM [facility] CHOL/HDL RATIO 2.8 0.0 - 4.4 10/21/2020 10:53 AM [facility] NON-HDL CHOLESTEROL 111.5 <130 mg/dL 10/21/2020 10:53 AM [facility] IS THE PATIENT REQUIRED TO BE FASTING? Yes 10/21/2020 10:53 AM [facility] HAS THE PATIENT BEEN FASTING? Yes 10/21/2020 10:53 AM [facility] Blood Venipuncture / Unknown 10/21/2020 9:10 AM RESTAURANT ASSISTANT 10/21/2020 9:54 AM RESTAURANT ASSISTANT us Brea Rollins APRN, MYRNA CHEMISTRY ORDER AMRITA Final Result [facility] [address] [place] [address] * (ABNORMAL) CMP (COMPREHENSIVE METABOLIC PANEL) (10/21/2020 9:10 AM RESTAURANT ASSISTANT) SODIUM 138 136 - 144 mmol/L 10/21/2020 10:53 AM [facility] POTASSIUM 5.2(H) 3.5 - 5.1 mmol/L 10/21/2020 10:53 AM [facility] CHLORIDE 101 100 - 110 mmol/L 10/21/2020 10:53 AM [facility] CO2, VENOUS 29 22 - 32 mmol/L 10/21/2020 10:53 AM [facility] ANION GAP 13.2 8.0 - 20.0 mmol/L 10/21/2020 10:53 AM [facility] GLUCOSE 114(H) 70 - 99 mg/dL 10/21/2020 10:53 AM [facility] BUN 16 8 - 23 mg/dL 10/21/2020 10:53 AM [facility] CREATININE, BLOOD 0.72(L) 0.80 - 1.30 mg/dL 10/21/2020 10:53 AM [facility] BUN/CREATININE RATIO 22(H) 12 - 20 ratio 10/21/2020 10:53 AM [facility] TOTAL PROTEIN 7.1 6.0 - 8.3 g/dL 10/21/2020 10:53 AM [facility] ALBUMIN 4.5 3.5 - 5.2 g/dL 10/21/2020 10:53 AM [facility] Comment: The colormetric methods used for the determination of Albumin may lead to falsely elevated test results in patients suffering from renal failure or insufficiency due to interference with other proteins. A/G RATIO 1.7 1.0 - 2.0 10/21/2020 10:53 AM [facility] CALCIUM 9.5 8.9 - 10.3 mg/dL 10/21/2020 10:53 AM [facility] T BILI 0.3 <=1.2 mg/dL 10/21/2020 10:53 AM [facility] SGOT (AST) 17 <=40 U/L 10/21/2020 10:53 AM [facility] SGPT (ALT) 8 <=41 U/L 10/21/2020 10:53 AM [facility] ALKALINE PHOSPHATASE 117 40 - 130 U/L 10/21/2020 10:53 AM [facility] GFR, EST. NONAFRICAN >60 >=60 10/21/2020 10:53 AM [facility] GFR, EST. >60 >=60 020 10:53 AM [facility] Comment: Creatinine Clearance is the preferred criteria for selecting drug dose adjustments in renally impaired patients. ??The GFR is provided as additional pertinent clinical information. GFR is reported in mL/min/1.73 sq m. IS THE PATIENT REQUIRED TO BE FASTING? No 10/21/2020 10:53 AM [facility] Blood Venipuncture / Unknown 10/21/2020 9:10 AM [facility] 10/21/2020 9:54 AM [facility] Brea Rollins APRN, CNP CHEMISTRY ORDER AMRITA Final Result [facility] [address] [place] [address] documented in this encounter Visit Diagnoses Diagnosis Chronic diarrhea- Primary Diarrhea Blood in stool, leta Blood in stool Screening for prostate cancer Special screening for malignant neoplasm of prostate Encounter for lipid screening for cardiovascular disease documented in this encounter Care Teams Beauty Therapist Relationship Specialty Start Date End Date Brea Rollins APRN, SURVEYING CREW RODMAN [address] [place] [address] PCP - General Advanced Practice Nurse 09/24/19 documented as of this encounter
--- OUTSIDE RECORDS SUMMARY | 2024-11-07 05:02 | XMS_ITS | Encounter Summary ---
Author Organization [facility] Address [address] [place] [address] Phone Care Team Providers Care Kaiako Kohanga Reo Name Role Phone Deena Beach APRN, MYRNA Primary Care P edgar Reason for Visit * Reason Onset Date Comments Need Order 11/03/2020 Pre-Op COVID morgan ting/Hi Prep Encounter Details Date Type Department Care Team (Late st Contact Info) Description 11/03/2020 Telephone [facility] General [facility] - [place] [address] [address] Juan Mendez MD [address] [address] Need Order (Pre-Op COVID testing/Hi Prep) Social History Tobacco Use Types Packs/Day Years [...] COVID-19? No / Unsure 10/24/2020 4:58 PM BUSINESS DIRECTOR documented as of this encounter Miscellaneous Notes * Addendum Note - Charlene Sandoval RN - 11/03/2020 11:33 AM CSTAddended by: CHARLENE JUAREZ on: 11/03/2020 11:33 AM Modules accepted: Orders NESS DIRECTOR * Telephone Encounter - Charlene Sandoval RN - 11/03/2020 7:35 AM BUSINESS DIRECTOR COVID-19 Testing Priority ?? Close contact with [...] medical conditions, etc)? Yes (Previous Answer - Yes) ?? Patient is a healthcare worker or first beater? No (Previous Answer - No) ?? Patient is a resident of a congregate living facility (SNF, half-way, skilled nursing)? No (Previous Answer - No) ?? The patient has cough or shortness of breath or any two of the following; fever, chills, muscle pain, headache, sore throat, new loss of smell, or new loss of taste (if not already answered in Travel & Exposure Screening)? No (Previous Answer - No) NESS DIRECTOR documented in this encounter Plan of Treatment Upcoming Encounters Date Type Department Care Team (Late st Contact Info) Description 11/08/2024 2:00 PM BUSINESS DIRECTOR Office Visit [facility] - Primary Care - Georgina [address] [place] [address] Almaz Sin, EMPLOYEE RELATIONS REPRESENTATIVE, CODING FILE CLERK [address] [place] [address] documented as of this encounter Results * SARS-COV-2 BY MOLECULAR (11/10/2020 10:28 AM BUSINESS DIRECTOR) SARSCOV2 NOT DETECTED (Referen ce Range for this test is Not Detected ) [facility] THERMOFISHER FAST DX 11/11/2020 2:01 AM BUSINESS DIRECTOR [facility] Comment:This test was perfor med by a PCR method. Other NASOPHARYNGEAL STRUCTURE / Unknown Non-Phlebotomy Collection / Unknown 11/10/2020 10:28 AM BUSINESS DIRECTOR 11/10/2020 10:54 AM BUSINESS DIRECTOR Narrative [facility] - 11/11/2020 2:01 AM BUSINESS DIRECTOR Authorized Fact Sheets about this test for providers and patients are available at: https://www.fda.gov/medical-devices/bxwcoednl-fyzvetwnls-cygpqvu-devices/emergen -us e-authorizations us Juan Mendez MD MICROBIOLOGY - GENERAL ORDERABLE S Final Result [facility] [address] [place] [address], documented in this encounter Visit Diagnoses Diagnosis Malignant neoplasm of sigmoid colon (HCC)- Primary Malignant neoplasm of sigmoid colon Preop testing Preoperative examination, unspecified documented in this encounter Care Teams Kaiako Kohanga Reo Relationship Specialty Start Date End Date Deena Beach, EMPLOYEE RELATIONS REPRESENTATIVE, CODING FILE CLERK [address] [place] [address] PCP - General Advanced Practice Nurse 09/24/19 documented as of this encounter
--- OUTSIDE RECORDS SUMMARY | 2024-11-07 05:02 | XMS_ITS | Encounter Summary ---
Author Organization [facility] Address [address] [place] [address] Care Team Providers Care Seed Potato Cutter Name Role Phone Jeb Negron DO Primary Care Provider [phone] Encounter Details Date Type Department Care Team (Late st Contact Info) Description 02/05/2002 Outpatient Historical [facility] Primary Care - [address] [place] [address] Jeb Negron DO * Social History [...] on filedocumented in this encounter Care Teams Seed Potato Cutter Relationship Specialty Start Date End Date Jeb Negron DO * PCP - General 12/20/02 documented as of this encounter
--- OUTSIDE RECORDS SUMMARY | 2024-11-07 05:02 | XMS_ITS | Encounter Summary ---
Author Organization [facility] Address [address] [place] [address] Care Team Providers Care Information Operator Name Role Phone Jeb Negron DO Primary Care Provider Encounter Details Date Type Department Care Team (Late st Contact Info) Description 01/10/2003 Outpatient Historical [facility] Primary Care - [address] [place] [address] Jeb Negron DO * Social History [...] on filedocumented in this encounter Care Teams Information Operator Relationship Specialty Start Date End Date Jeb Negron DO * PCP - General 12/20/02 documented as of this encounter
--- OUTSIDE RECORDS SUMMARY | 2024-11-07 05:02 | XMS_ITS | Encounter Summary ---
Author Organization [facility] Address [address] [place] [address] Phone Care Team Providers Care Laundry Clerk Name Role Phone Deena Beach APRN, CNP Primary Care P rovider Reason for Visit * Reason Onset Date Comments Results 10/23/2020 Encounter Details Date Type Department Care Team (Late st Contact Info) Description 10/23/2020 Telephone [facility] - Primary Care - [place]ina [address] [place] [address] Deena Beach APRN, CNP [address] [place] [address] Results Social History Tobacco Use Types Packs/Day Years [...] COVID-19? No / Unsure 10/23/2020 4:51 AM PAPER FINISHER documented as of this encounter Miscellaneous Notes * Telephone Encounter - Denise Gómez RN - 10/23/2020 2:31 PM PAPER FINISHER Attempted to call patient with results, no answer at this time. No voicemail. R FINISHER * Telephone Encounter - Denise Gómez RN - 10/23/2020 2:30 PM PAPER FINISHER ----- Message from Deena Beach APN, MYRNA sent at 10/23/2020 2:27 PM PAPER FINISHER ----- Please inform patient labs look. Will repeat them in 3mo. R FINISHER documented in this encounter Plan of Treatment Upcoming Encounters Date Type Department Care Team (Late st Contact Info) Description 11/08/2024 2:00 PM PAPER FINISHER Office Visit [facility] - Primary Care - Georgina [address] [place] [address] Almaz Sin APRN, SHOOK SPLICER [address] [place] [address] documented as of this encounter Visit Diagnoses Not on filedocumented in this encounter Care Teams Laundry Clerk Relationship Specialty Start Date End Date Deena Beach APRN, SHOOK SPLICER [address] [place] [address] PCP - General Advanced Practice Nurse 09/24/19 documented as of this encounter
--- OUTSIDE RECORDS SUMMARY | 2024-11-07 05:02 | XMS_ITS | Encounter Summary ---
Author Organization [facility] Address [address] [place] [address] Care Team Providers Care E Commerce Marketing Manager Name Role Phone Jeb Negron DO Primary Care Provider [phone] Encounter Details Date Type Department Care Team (Late st Contact Info) Description 01/27/2002 Outpatient Historical [facility] Primary Care - [address] [place] [address] Jeb Negron [...] on filedocumented in this encounter Care Teams E Commerce Marketing Manager Relationship Specialty Start Date End Date Jeb Negron DO * PCP - General 12/20/02 documented as of this encounter
--- OUTSIDE RECORDS SUMMARY | 2024-11-07 05:02 | XMS_ITS | Encounter Summary ---
Author Organization [facility] Care Team Providers Care Upscale Security Officer Name Role Phone Deena Beach APRN, [employer]TER [employer] MILLER Primary Care P edgar Encounter Details Date Type Department Care Team (Latest Contact Info) Description 11/03/2020 Travel Social History Tobacco Use Types Packs/Day [...] have Coronavirus / COVID-19? No / Unsure 11/03/2020 2:00 PM SUGAR DRIER documented as of this encounter Plan of Treatment Upcoming Encounters Date Type Department Care Team (Late st Contact Info) Description 11/08/2024 2:00 PM SUGAR DRIER Office Visit [facility] - Primary Care - Georgina [address] [place] [address] Almaz Sin APRN, SIFTER [employer] MILLER [address] [place] [address] documented as of this encounter Visit Diagnoses Not on filedocumented in this encounter Care Teams Upscale Security Officer Relationship Specialty Start Date End Date Deena Beach, MENTAL HEALTH SPECIALIST, SIFTER [employer] MILLER [address] [place] [address] PCP - General Advanced Practice Nurse 09/24/19 documented as of this encounter
--- OUTSIDE RECORDS SUMMARY | 2024-11-07 05:02 | XMS_ITS | Encounter Summary ---
Author Organization [facility] Address [address] [place] [address] Care Team Providers Care Wedding Coordinator Name Role Phone Jeb Negron DO Primary Care Provider Encounter Details Date Type Department Care Team (Late st Contact Info) Description 02/19/2002 Outpatient Historical [facility] Primary Care - [address] [place] [address] Jeb Negron DO * Social History [...] on filedocumented in this encounter Care Teams Wedding Coordinator Relationship Specialty Start Date End Date Jeb Negron DO * PCP - General 12/20/02 documented as of this encounter
--- OUTSIDE RECORDS SUMMARY | 2024-11-07 05:02 | XMS_ITS | Encounter Summary ---
Author Organization [facility] Address [address] [place] [address] Phone Care Team Providers Care Straw Baler Name Role Phone Deena Beach APRN, CNP Primary Care P rovider Encounter Details Date Type Department Care Team (Late st Contact Info) Description 10/23/2020 Telephone [facility] - Primary Care - [place] [address] [place] [address] Deena Beach APRN, CNP [address] [place] [address] Social History Tobacco Use Types [...] COVID-19? No / Unsure 10/23/2020 4:51 AM LABORER STORES documented as of this encounter Miscellaneous Notes * Telephone Encounter - Denise Gómez RN - 10/23/2020 2:43 PM LABORER STORES See other telephone encounter of 10/23/20. RER STORES * Telephone Encounter - Brooklyn Guillaume CMA - 10/23/2020 2:41 PM CST Encounter created in error. RER STORES RER STORES documented in this encounter Plan of Treatment Upcoming Encounters Date Type Department Care Team (Late st Contact Info) Description 11/08/2024 2:00 PM LABORER STORES Office Visit [facility] - Primary Care - [place] [address] [place] [address] Almaz Sin APRN, EMERGENCY MEDICAL TECH [address] [place] [address] documented as of this encounter Visit Diagnoses Not on filedocumented in this encounter Care Teams Straw Baler Relationship Specialty Start Date End Date Deena Beach APRN, EMERGENCY MEDICAL TECH [address] [place] [address] PCP - General Advanced Practice Nurse 09/24/19 documented as of this encounter
--- OUTSIDE RECORDS SUMMARY | 2024-11-07 05:02 | XMS_ITS | Encounter Summary ---
Author Organization [facility] Address [address] [place] [address] Phone Care Team Providers Care Zinc Skimmer Name Role Phone Deena Beach APRN, CNP Primary Care P rovider Gigi Waters MD Primary Care Provider Reason for Referral * Radiology Services (Routine) - Closed Specialty Diagnoses / Procedures Referred By Contac t Referred To Contact Radiology Diagnoses Pre-op testing Procedures EKG 12 LEAD Vladimir Hill MD [address] [place] [address] Phone: tel: fax: Referral ID Status Reason Start Date Expiration Date Visits Re quested Visits Authorized [id number] Closed 11/06/2020 1 1 CAL OBSERVER Encounter Details Date Type Department Care Team (Late st Contact Info) Description 11/06/2020 Transcribe Orders [facility] Preop/Pac[facility] II [address] [place] [phone] Vladimir Hill MD [address] [place] [address] Pre-op testing (Primary Dx) Social History Tobacco Use Types [...] COVID-19? No / Unsure 11/03/2020 2:00 PM MEDICAL OBSERVER documented as of this encounter Plan of Treatment Upcoming Encounters Date Type Department Care Team (Late st Contact Info) Description 11/08/2024 2:00 PM MEDICAL OBSERVER [facility] Primary Care - [place] [address] [place] [address] Almaz Sin M, STUDENT DEVELOPMENT DEAN, CITY DISPATCHER [address] [place] [address] documented as of this encounter Results * EKG 12 LEAD (11/10/2020 10:32 AM MEDICAL OBSERVER) Ventricular Rate BPM EXTERNAL EKG Atrial Rate BPM EXTERNAL EKG P-R Interval 162 ms EXTERNAL EKG QRS Duration 82 ms EXTERNAL EKG Q-T Duration 382 ms EXTERNAL EKG QTC CALCULATION 438 ms EXTERNAL EKG P [place] 60 degrees EXTERNAL EKG R [place] 9 degrees EXTERNAL EKG T [place] 55 degrees EXTERNAL EKG 11/10/2020 10:3 2 AM MEDICAL OBSERVER Impressions EXTERNAL EKG - 11/11/2020 12:52 PM MEDICAL OBSERVER Sinus rhythm Within normal limits as previously Comparison Summary: No significant change Summary: Normal ECG Compared with:02/10/2017 12:43 PM Confirmed by Xu Carbone [id number] on 11/11/2020 12:52:14 PM Narrative Procedure Note Gigi Mcnair MD - 11/11/2020 IMPRESSION: Sinus rhythm Within normal limits as previously Comparison Summary: No significant change Summary: Normal ECG Compared with:02/10/2017 12:43 PM Confirmed by Xu Carbone [id number] on 11/11/2020 12:52:14 PM Vladimir Hill MD IMG ECG ORDERABLES Final Resu lt EXTERNAL EKG * TYPE AND SCREEN(REPEAT) (11/10/2020 10:28 AM MEDICAL OBSERVER) ABO TYPING A 11/10/2020 12:05 PM MEDICAL OBSERVER [facility] BLOOD BANK RH Positive 11/10/2020 12:05 PM MEDICAL OBSERVER [facility] BLOOD BANK ABSC Negative 11/10/2020 12:05 PM MEDICAL OBSERVER [facility] BLOOD BANK Blood Venipuncture / Unknown 11/10/2020 10:28 AM MEDICAL OBSERVER 11/10/2020 10:52 AM MEDICAL OBSERVER Vladmiir Hill MD BLOOD BANK ORDERABLES Edited Result - Final [facility] BLOOD BANK [address] [place] [address] documented in this encounter Visit Diagnoses Diagnosis Pre-op testing- Primary Preoperative examination, unspecified Pre-op testing Preoperative examination, unspecified documented in this encounter Additional Health Concerns Infection Onset Date Last Indicated Resolved Time COVID - 19 01/09/2024 01/09/2024 01/09/2024 8:39 AM CDT Respiratory Rule-Out 01/09/2024 01/09/2024 024 8:42 AM CDT documented as of this encounter Care Teams Zinc Skimmer Relationship Specialty Start Date End Date Deena Beach APRN, CITY DISPATCHER [address] [place] [address] PCP - General Advanced Practice Nurse 09/24/19 Gigi Waters MD #[address] [place] [address] [address] PCP - General Family Medicine 01/24/23 documented as of this encounter
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
--- OUTSIDE RECORDS SUMMARY | 2024-11-07 05:02 | XMS_ITS | Encounter Summary ---
Author Organization [facility] Care Team Providers Care Scientific Linguist Name Role Phone Deena Beach APRN, CNP Primary Care P kayyder Encounter Details Date Type Department Care Team (Latest Contact Info) Description 10/12/2020 Travel Social History Tobacco Use Types Packs/Day [...] COVID-19? No / Unsure 10/12/2020 10:03 AM SISTER SUPERIOR documented as of this encounter Plan of Treatment Upcoming Encounters Date Type Department Care Team (Late st Contact Info) Description 11/08/2024 2:00 PM SISTER SUPERIOR Office Visit [facility] - Primary Care - [place] [address] [place] [id number] Almaz Sin APRN, CNP [address] [place] [address] documented as of this encounter Visit Diagnoses Not on filedocumented in this encounter Care Teams Scientific Linguist Relationship Specialty Start Date End Date Deena Beach APRN, FURRIER DESIGNER [address] [place] [address] PCP - General Advanced Practice Nurse 09/24/19 documented as of this encounter
--- OUTSIDE RECORDS SUMMARY | 2024-11-07 05:02 | XMS_ITS | Encounter Summary ---
Author Organization [facility] [employer] Care Team Providers Care Hand Sole Sewer Name Role Phone Deena Beach APRN, LAND SURVEYOR MANAGER Primary Care P edgar Encounter Details Date Type Department Care Team (Latest Contact Info) Description 11/10/2020 Travel Social History Tobacco Use Types Packs/Day [...] COVID-19? No / Unsure 11/10/2020 10:14 AM SUPERINTENDENT OF GENERATION documented as of this encounter Plan of Treatment Upcoming Encounters Date Type Department Care Team (Late st Contact Info) Description 11/08/2024 2:00 PM SUPERINTENDENT OF GENERATION Office Visit [facility] - Primary Care - [place] [address] [place] [id number] Almaz Sin APRN, LAND SURVEYOR MANAGER [address] [place] [address] documented as of this encounter Visit Diagnoses Not on filedocumented in this encounter Care Teams Hand Sole Sewer Relationship Specialty Start Date End Date Deena Beach, SALES UTILITY REPRESENTATIVE, LAND SURVEYOR MANAGER [address] [place] [address] PCP - General Advanced Practice Nurse 09/24/19 documented as of this encounter
--- OUTSIDE RECORDS SUMMARY | 2024-11-07 05:02 | XMS_ITS | Encounter Summary ---
Author Organization [facility] Address [address] [place] [address] Phone Care Team Providers Care Nuclear Physics Professor Name Role Phone Brea Rollins APRN, CNP Primary Care P rovider Reason for Visit * Reason Onset Date Comments Results 10/23/2020 lab Encounter Details Date Type Department Care Team (Late st Contact Info) Description 10/23/2020 Telephone [facility] - [place] [address] [place] [address] Brea Rollins APRN, CNP [address] [place] [address] Results (lab) Social History Tobacco Use Types Packs/Day Years [...] COVID-19? No / Unsure 10/23/2020 4:51 AM SEWING MACHINE OPERATOR documented as of this encounter Miscellaneous Notes * Addendum Note - Brea Rollins APN, CNP - 10/23/2020 7:04 PM SEWING MACHINE OPERATOR Addended by: BREA ROLLINS on: 10/23/2020 07:04 PM Modules accepted: Orders NG MACHINE OPERATOR * Telephone Encounter - Brea Rollins APN, CNP - 10/23/2020 7:03 PM CST Signed. NG MACHINE OPERATOR * Addendum Note - Ning Martinez RN - 10/23/2020 2:54 PM CSTAddended by: NING MARTINEZ on: 10/23/2020 02:54 PM Modules accepted: Orders NG MACHINE OPERATOR * Telephone Encounter - Ning Martinez RN - 10/23/2020 2:30 PM CST Patient notified and verbalized understanding. Patient states he has an appointment with Dr Mendez tomorrow and a pending CT scan. His paperwork states he is to follow up with PCP after that. Recommended patient to find out tomorrow when he is to follow up with Brea and then can call us back to schedule that appointment. CBC, CMP and Lipid panel pended NG MACHINE OPERATOR NG MACHINE OPERATOR NG MACHINE OPERATOR * Telephone Encounter - Ning Martinez RN - 10/23/2020 2:28 PM CST ----- Message from Brea Rollins APN, CNP sent at 10/23/2020 2:27 PM SEWING MACHINE OPERATOR ----- Please inform patient labs look. Will repeat them in 3mo. NG MACHINE OPERATOR documented in this encounter Plan of Treatment Upcoming Encounters Date Type Department Care Team (Late st Contact Info) Description 11/08/2024 2:00 PM SEWING MACHINE OPERATOR Office Visit [facility] - Primary Care - [place] [address] [place] [address] Almaz Sin, COMPUTER GAME PROGRAMMER, EXPEDITER [address] [place] [address] documented as of this encounter Results * (ABNORMAL) CMP (COMPREHENSIVE METABOLIC PANEL) (11/10/2020 10:28 AM SEWING MACHINE OPERATOR) SODIUM 141 136 - 144 mmol/L 11/10/2020 11:30 AM [facility] POTASSIUM 4.7 3.5 - 5.1 mmol/L 11/10/2020 11:30 AM [facility] CHLORIDE 104 100 - 110 mmol/L 11/10/2020 11:30 AM [facility] CO2, VENOUS 29 22 - 32 mmol/L 11/10/2020 11:30 AM [facility] ANION GAP 12.7 8.0 - 20.0 mmol/L 11/10/2020 11:30 AM [facility] GLUCOSE 109(H) 70 - 99 mg/dL 11/10/2020 11:30 AM [facility] BUN 17 8 - 23 mg/dL 11/10/2020 11:30 AM [facility] CREATININE, BLOOD 0.67(L) 0.80 - 1.30 mg/dL 11/10/2020 11:30 AM [facility] BUN/CREATININE RATIO 25(H) 12 - 20 ratio 11/10/2020 11:30 AM [facility] TOTAL PROTEIN 6.5 6.0 - 8.3 g/dL 11/10/2020 11:30 AM [facility] ALBUMIN 4.4 3.5 - 5.2 g/dL 11/10/2020 11:30 AM [facility] Comment: The colormetric methods used for the determination of Albumin may lead to falsely elevated test results in patients suffering from renal failure or insufficiency due to interference with other proteins. A/G RATIO 2.1(H) 1.0 - 2.0 11/10/2020 11:30 AM [facility] CALCIUM 9.2 8.9 - 10.3 mg/dL 11/10/2020 11:30 AM [facility] T BILI <0.3 <=1.2 mg/dL 11/10/2020 11:30 AM [facility] SGOT (AST) 17 <=40 U/L 11/10/2020 11:30 AM [facility] SGPT (ALT) 9 <=41 U/L 11/10/2020 11:30 AM [facility] ALKALINE PHOSPHATASE 114 40 - 130 U/L 11/10/2020 11:30 AM [facility] GFR, EST. NONAFRICAN >60 >=60 11/10/2020 11:30 AM [facility] GFR, EST. >60 >=60 021 11:30 AM [facility] Comment: Creatinine Clearance is the preferred criteria for selecting drug dose adjustments in renally impaired patients. ??The GFR is provided as additional pertinent clinical information. GFR is reported in mL/min/1.73 sq m. IS THE PATIENT REQUIRED TO BE FASTING? Yes 11/10/2020 11:30 AM [facility] HAS THE PATIENT BEEN FASTING? Yes 11/10/2020 11:30 AM [facility] Blood Venipuncture / Unknown 11/10/2020 10:28 AM SEWING MACHINE OPERATOR 11/10/2020 10:53 AM [facility] us Brea Rollins APRN, EXPEDITER CHEMISTRY ORDER AMRITA Final Result [facility] [address] [place] [address] documented in this encounter Visit Diagnoses Diagnosis Blood in stool, leta- Primary Blood in stool Hyperkalemia Hyperpotassemia documented in this encounter Care Teams Nuclear Physics Professor Relationship Specialty Start Date End Date Brea Rollins APRN, EXPEDITER [address] [place] [address] PCP - General Advanced Practice Nurse 09/24/19 documented as of this encounter
--- OUTSIDE RECORDS SUMMARY | 2024-11-07 05:02 | XMS_ITS | Encounter Summary ---
Author Organization [facility] Address [address] [place] [address] Phone Care Team Providers Care Gum Maker Name Role Phone Deena Beach APRN, CNP Primary Care P rocandidoder Reason for Visit * Radiology Services (Routine) - Closed Specialty Diagnoses / Procedures Referred By Baldemar bui Referred To Contact Radiology Diagnoses Malignant neoplasm of sigmoid colon (HCC) Procedures CT CHEST ABDOMEN AND PELVIS W CONTRAST CT ABDOMEN PELVIS W/ CONTRAST Joe Callaway DO Phone: tel: fax: Referral ID Status Reason Start Date Expiration Date Visits Re quested Visits Authorized [id number] Closed 10/23/2020 1 1 Encounter Details Date Type Department Care Team (Late st Contact Info) Description 10/24/2020 6:30 PM CHAIN PERSON - 10/24/2020 11:59 PM CHAIN PERSON Hospital Encounter [facility] [address] [place] [address] Joe Callaway DO [address] [address] Discharge Disposition: Discharged to home or Selfcare [...] COVID-19? No / Unsure 10/24/2020 4:58 PM CHAIN PERSON documented as of this encounter Medications at Time of Discharge aspirin 325 MG Tablet Take 325 mg by mouth once a week. Friday11/15/2020 diphenhydrAMINE-A PAP, sleep, (TYLENOL PM EXTRA STRENGTH PO) Take by mouth nightly. 01/24/2023 documented as of this encounter Plan of Treatment Upcoming Encounters Date Type Department Care Team (Late st Contact Info) Description 11/08/2024 2:00 PM CHAIN PERSON Office Visit [facility] - Primary Care - [place] [address] [place] [address] Almaz Sin, SCANNING SUPERVISOR, REAL ESTATE LISTING CONSULTANT [address] [place] [address] documented as of this encounter Procedures Procedure Name Priority Date/Time Associated Diagnosis Comments CT CHEST ABDOMEN AND PELVIS W CONTRAST Routine 10/24/2020 6:18 PM CHAIN PERSON Malignant neoplasm of sigmoid colon (HCC) documented in this encounter Results * CT CHEST ABDOMEN AND PELVIS W CONTRAST (10/24/2020 6:18 PM CHAIN PERSON) Anatomical Region Laterality Modality Chest, Abdomen, Pelvis N/A Computed Tomography 10/24/2020 7:00 PM CHAIN PERSON Impressions 10/24/2020 7:03 PM CHAIN PERSON IMPRESSION: ?? Sigmoid colonic mass as evidence of colon cancer. Numerous small lymph nodes are noted around the sigmoid colon likely representing local metastatic disease. ??The largest lymph node measures approximately 8 mm. No definite liver metastases or lung metastases. Narrative 10/24/2020 7:03 PM CHAIN PERSON EXAM DESCRIPTION: ?? CT CHEST ABDOMEN AND PELVIS W CONTRAST REASON FOR STUDY: ?? Malignant neoplasm of sigmoid colon TECHNIQUE: ??CT scan of the chest, abdomen, and pelvis performed with intravenous and ?? oral contrast using helical scanning technique with dynamic intravenous contrast injection. Reconstructed coronal and sagittal MPR images reviewed. All images stored on PACS. ?? Automated exposure control was used as a dose optimization technique for this examination. CONTRAST TYPE/DOSE: ?? 100CC OF ISOVUE 370 INJECTED VIA RAC COMPARISON: ?? None FINDINGS: ??CHEST LUNGS: ??No nodules or masses. No pneumonia. PLEURA: ??No effusion. No pneumothorax. MEDIASTINUM/KRYSTAL: ??No identified masses or abnormal nodes. HEART: ??Heart size is normal with no pericardial effusion. VASCULATURE CHEST: ??Atheromatous disease of the aorta with coronary artery calcification. No aneurysms of the aorta. AXILLA: ??No adenopathy. CHEST WALL: ??No masses. ??No subcutaneous air. HARDWARE/LINES/TUBES: ??None. MUSCULOSKELETAL CHEST: ??No significant abnormality. ABDOMEN/PELVIS LIVER: ??There are few liver cyst identified. ??No definite metastatic lesions within the liver. GALLBLADDER: ??Unremarkable BILE DUCTS: ??No intrahepatic or extrahepatic ductal dilatation. SPLEEN: ??Normal size. ??No focal lesions. PANCREAS: ??No identified cystic or solid masses. No significant calcifications. No adjacent inflammation or peripancreatic fluid collections. Pancreatic duct not dilated. ADRENALS: ??Normal. KIDNEYS/URINARY TRACT: ??Nonobstructing left-sided nephrolithiasis. ?? Simple cysts are noted in the left kidney. ??No ureteral stones or hydronephrosis urinary bladder is unremarkable. GI: ??Abnormal thickening of the sigmoid colon consistent with history of sigmoid colon cancer. ??There are few adjacent lymph nodes presumably these are evidence of local metastatic disease PERITONEUM: ??No ascites or free air. RETROPERITONEUM: ??No mass or adenopathy. REPRODUCTIVE: ??No significant abnormality. VASCULATURE ABDOMEN: ??Atherosclerotic disease in the aorta and iliacs MUSCULOSKELETAL ABDOMEN PELVIS: ??Small fat filled right inguinal hernia OTHER: ??No significant abnormality. THIS IS AN ELECTRONICALLY VERIFIED FINAL REPORT 10/24/2020 7:00 PM - Electronically signed by Rigoberto BOOGIE: CHUYITA D: ??10/24/2020 7:00 PM T: ??10/24/2020 7:00 PM Report ID: [id number] Reading Location: ??[id number] Procedure Note Rigoberto Villagomez MD - 10/24/2020 EXAM DESCRIPTION: CT CHEST ABDOMEN AND PELVIS W CONTRAST REASON FOR STUDY: Malignant neoplasm of sigmoid colon TECHNIQUE: CT scan of the chest, abdomen, and pelvis performed with intravenous and oral contrast using helical scanning technique with dynamic intravenous contrast injection. Reconstructed coronal and sagittal MPR images reviewed. All images stored on PACS. Automated exposure control was used as a dose optimization technique for this examination. CONTRAST TYPE/DOSE: 100CC OF ISOVUE 370 INJECTED VIA RAC COMPARISON: None FINDINGS: CHEST LUNGS: No nodules or masses. No pneumonia. PLEURA: No effusion. No pneumothorax. MEDIASTINUM/KRYSTAL: No identified masses or abnormal nodes. HEART: Heart size is normal with no pericardial effusion. VASCULATURE CHEST: Atheromatous disease of the aorta with coronary artery calcification. No aneurysms of the aorta. AXILLA: No adenopathy. CHEST WALL: No masses. No subcutaneous air. HARDWARE/LINES/TUBES: None. MUSCULOSKELETAL CHEST: No significant abnormality. ABDOMEN/PELVIS LIVER: There are few liver cyst identified. No definite metastatic lesions within the liver. GALLBLADDER: Unremarkable BILE DUCTS: No intrahepatic or extrahepatic ductal dilatation. SPLEEN: Normal size. No focal lesions. PANCREAS: No identified cystic or solid masses. No significant calcifications. No adjacent inflammation or peripancreatic fluid collections. Pancreatic duct not dilated. ADRENALS: Normal. KIDNEYS/URINARY TRACT: Nonobstructing left-sided nephrolithiasis. Simple cysts are noted in the left kidney. No ureteral stones or hydronephrosis urinary bladder is unremarkable. GI: Abnormal thickening of the sigmoid colon consistent with history of sigmoid colon cancer. There are few adjacent lymph nodes presumably these are evidence of local metastatic disease PERITONEUM: No ascites or free air. RETROPERITONEUM: No mass or adenopathy. REPRODUCTIVE: No significant abnormality. VASCULATURE ABDOMEN: Atherosclerotic disease in the aorta and iliacs MUSCULOSKELETAL ABDOMEN PELVIS: Small fat filled right inguinal hernia OTHER: No significant abnormality. THIS IS AN ELECTRONICALLY VERIFIED FINAL REPORT 10/24/2020 7:00 PM - Electronically signed by Rigoberto Villagomez M.D. [place]: CHUYITA Report ID: [id number] Reading Location: [id number] IMPRESSION: Sigmoid colonic mass as evidence of colon cancer. Numerous small lymph nodes are noted around the sigmoid colon likely representing local metastatic disease. The largest lymph node measures approximately 8 mm. No definite liver metastases or lung metastases. Joe Callaway DO IMG CT ORDERABLES Final Result documented in this encounter Visit Diagnoses Diagnosis Malignant neoplasm of sigmoid colon (HCC) Malignant neoplasm of sigmoid colon documented in this encounter Administered Medications Inactive Administered Medications - up to 3 most recent administrations Medication Order MAR Action Action Date Dose Rate Site diatrizoate meglumine-sodium (GASTROGRAFIN) 66-10 % solution 15 mL 15 mL, Oral, ONCE, 1 dose, On Fri10/24/20 at 1800 Given 10/24/2020 5:21 PM CHAIN PERSON 15 mL iopamidol (ISOVUE-370) 76 % injection 100 mL 100 mL, Intravenous, ONCE, 1 dose, On Fri10/24/20 at 1800 Given 10/24/2020 6:17 PM CHAIN PERSON 100 mL documented in this encounter Care Teams Gum Maker Relationship Specialty Start Date End Date Deena Beach, SCANNING SUPERVISOR, REAL ESTATE LISTING CONSULTANT [address] [place] [address] PCP - General Advanced Practice Nurse 09/24/19 documented as of this encounter
--- OUTSIDE RECORDS SUMMARY | 2024-11-07 05:02 | XMS_ITS | Clinical Summary ---
Author Organization [facility] Address [address]: Epic Prelude ADT [place] [address] Care Team Providers Care Operations Superintendent Name Role Phone Jeb Negron DO Primary Care Provider [phone] Social History Tobacco Use Types Packs/Day Years Used Date Smoking Tobacco: Never Assessed Sex and Gender Information Value Date Recorded Sex Assigned at Not on file Gender Identity Not on file Sexual Orientation Not on file Plan of Treatment Health Maintenance Due Date Last Done Comments DTAP/TDAP/TD VACCINES (1 - Tdap) 1961 ZOSTER VACCINE (1 of 2) 02/07/1992 PNEUMOCOCCAL VACCINE 65+ YEARS (1 of 1 - PCV) 02/07/20 07 RSV VACCINE (60+ or ) (1 - 1-dose 75+ series) 2017 INFLUENZA VACCINE (#1) 2024 Colorectal Cancer Screening Discontinued FIT/FOBT Q 1 year Discontinued 01/27/2002 COLORECTAL SCREENING Discontinued FIT-DNA Q 3 years Discontinued Flex Sig/CT Colonography Q 5 years Discontinued Care Teams Operations Superintendent Relationship Specialty Start Date End Date Jeb Negron DO * PCP - General 12/20/02
--- OUTSIDE RECORDS SUMMARY | 2024-11-07 05:02 | XMS_ITS | Encounter Summary ---
Author Organization [facility] Address [address] [place] [address] Phone Care Team Providers Care Bumper Operator Name Role Phone Deena Beach APRN, MYRNA Primary Care P rovider Reason for Visit * Reason Comments Diarrhea Encounter Details Date Type Department Care Team (Latest Contact Info) Description 10/12/2020 10:05 AM MATERIAL HANDLER LOADER Urgent Care Visit [facility] [place] [address] [place] [phone] Ophelia Coleman APRN, CLIENT SOLUTIONS DIRECTOR [address] [place] [address] Chronic diarrhea (Primary Dx); Blood in stool, leta Discharge Disposition: Discharged to home or Selfcare [...] COVID-19? No / Unsure 10/12/2020 10:03 AM MATERIAL HANDLER LOADER documented as of this encounter Last Filed Vital Signs Vital Sign Reading Time Taken Comments Blood Pressure 120/80 10/12/2020 10:11 AM MATERIAL HANDLER LOADER Pulse 88 10/12/2020 10:11 AM MATERIAL HANDLER LOADER Temperature 36.3 ??C (97.4 ??F) 10/12/2020 10:[address] Respiratory Rate 20 10/12/2020 10:11 AM MATERIAL HANDLER LOADER Oxygen Saturation 95% 10/12/2020 10:11 AM MATERIAL HANDLER LOADER Inhaled Oxygen Concentration - - Weight 78.5 kg (173 lb) 10/12/2020 10:11 AM MATERIAL HANDLER LOADER Height - - Body Mass Index 23.46 09/27/2019 10:18 AM MATERIAL HANDLER LOADER documented in this encounter Patient Instructions * Patient Instructions* Ophelia Coleman APN, CNP - 10/12/2020 10:05 AM MATERIAL HANDLER LOADER Deena Beach APN office will be calling you to schedule some blood work and get a referralto GI specialist for you. Get probiotics and take them every day. RIAL HANDLER LOADER RIAL HANDLER LOADER documented in this encounter Progress Notes * Shannon Thomas CMA - 10/12/2020 10:05 AM CST Lucian Sosa complains of Patient complains of diarrhea since 2-3 months. Today's Review of Systems Gastrointestinal: Positive for diarrhea. RIAL HANDLER LOADER * Ophelia Coleman APN, CNP - 10/12/2020 10:05 AM CST Subjective: Lucian Sosa is a 80 y.o. male in the prompt care today for diarrhea. Symptoms started 2-3 months Severity of symptoms is moderate Associated symptoms include blood and thick white mucus stools with loose, ribbon like appearance according to patient Patient is currently taking over the counter nothing for the symptoms. Smoker: former Hx of chronicconstipation with stools every 3-4 days for most of his life. Then a year ago he started taking stool softeners daily and developed diarrhea 3 months ago. Stopped stool softeners 2-3 months ago and has continued to have diarrhea loose thin soft stool 5-6 times a day and some bright redblood in stool and some white mucus. Mother had colon CA No other pertinent Past, family, or social history was noted Review of Systems Constitutional: Positive for unexpected weight change (loss of 20 lbs in last 2- 3 months). Negativefor activity change and appetite change. Gastrointestinal: Positive for abdominal distention (slight), blood in stool (bright red) and diarrhea (loose stools). Negative for abdominal pain, nausea and vomiting. Neurological: Negative for dizziness, weakness and light-headedness. Objective: Physical Exam Vitals signs and nursing note reviewed. Constitutional: General: He is not in acute distress. Appearance: Normal appearance. He is normal weight. He is not ill-appearing. HENT: Head: Normocephalic and atraumatic. Neck: Musculoskeletal: Normal range of motion and neck supple. Cardiovascular: Rate and Rhythm: Normal rate and regular rhythm. Pulmonary: Effort: Pulmonary effort is normal. No respiratory distress. Breath sounds: Normal breath sounds. Abdominal: General: Abdomen is flat. Bowel sounds are decreased. There is distension (slight). Palpations: Abdomen is soft. There is no mass. Tenderness: There is no abdominal tenderness. Skin: General: Skin is warm and dry. Neurological: Mental Status: He is alert and oriented to person, place, and time. Mental status is at baseline. Psychiatric: Mood and Affect: Mood normal. Behavior: Behavior normal. Thought Content: Thought content normal. Judgment: Judgment normal. Assessment and Plan See Diagnoses, Orders, Follow-up, and Instructions 1. Chronic diarrhea Probiotics over the counter daily 2. Blood in stool, leta Encouraged to keep a diary of when he has blood in stool and how much. Patient is referred to his PCP. Spoke to Deena and sent [employer] message. She will followup with patient and evaluate for further testing and referrals. Patient is aware that it is important for him to see PCP and get further evaluation. AVS from today was printed, discussed with patient/family and given to patient/family RIAL HANDLER LOADER documented in this encounter Plan of Treatment Upcoming Encounters Date Type Department Care Team (Late st Contact Info) Description 11/08/2024 2:00 PM MATERIAL HANDLER LOADER Office Visit [facility] - [place] Care - [place] [address] [place] [phone] Almaz Sin APRN, CLIENT SOLUTIONS DIRECTOR [address] [place] [address] documented as of this encounter Visit Diagnoses Diagnosis Chronic diarrhea- Primary Diarrhea Blood in stool, leta Blood in stool documented in this encounter Care Teams Bumper Operator Relationship Specialty Start Date End Date Deena Beach APRN, CLIENT SOLUTIONS DIRECTOR [address] [place] [address] PCP - General Advanced Practice Nurse 09/24/19 documented as of this encounter
--- OUTSIDE RECORDS SUMMARY | 2024-11-07 05:02 | XMS_ITS | Encounter Summary ---
Author Organization [facility] Address [address] [place] [address] Phone Care Team Providers Care Protein Specialist Name Role Phone Deena Beach APRN, CNP Primary Care P edgar Reason for Visit * Reason Onset Date Comments Medication Problem 11/03/2020 Encounter Details Date Type Department Care Team (Late st Contact Info) Description 11/03/2020 Telephone [facility] - General Surgery - [place] [address] [phone] Juan Mendez MD #[address] [id number] Medication Problem Social History Tobacco Use Types Packs/Day Years [...] COVID-19? No / Unsure 11/03/2020 2:00 PM STRIPPING CUTTER AND WINDER documented as of this encounter Miscellaneous Notes * Telephone Encounter - Danielle Steel CMA - 11/03/2020 9:28 AM STRIPPING CUTTER AND WINDER [facility] pharmacy faxed over questions about medication for patient to be taken prior to surgery. Patient was only give quantity of 3 Tablets, when 6 Tablets is needed of Metronidazole. Please review. PPING CUTTER AND WINDER documented in this encounter Plan of Treatment Upcoming Encounters Date Type Department Care Team (Late st Contact Info) Description 11/08/2024 2:00 PM STRIPPING CUTTER AND WINDER Office Visit [facility] - Primary Care - [place] [address] [place] [phone] Almaz Sin APRN, BULK PALLET BUILDER [address] [place] [address] documented as of this encounter Visit Diagnoses Not on filedocumented in this encounter Care Teams Protein Specialist Relationship Specialty Start Date End Date Deena Beach APRN, BULK PALLET BUILDER [address] [place], [place] [phone] PCP - General Advanced Practice Nurse 09/24/19 documented as of this encounter
--- OUTSIDE RECORDS SUMMARY | 2024-11-07 05:02 | XMS_ITS | Encounter Summary ---
Author Organization [facility] Care Team Providers Care Instructional Technology Coach Name Role Phone Deena Beach APRN, CNP Primary Care P kayyder Encounter Details Date Type Department Care Team (Latest Contact Info) Description 10/21/2020 Travel Social History Tobacco Use Types Packs/Day [...] have Coronavirus / COVID-19? No / Unsure 10/21/2020 9:01 AM BANQUET COORDINATOR documented as of this encounter Plan of Treatment Upcoming Encounters Date Type Department Care Team (Late st Contact Info) Description 11/08/2024 2:00 PM BANQUET COORDINATOR Office Visit [facility] - Primary Care - [place] [address] [place] [phone] Almaz Sin APRN, CNP [address] [place] [address] documented as of this encounter Visit Diagnoses Not on filedocumented in this encounter Care Teams Instructional Technology Coach Relationship Specialty Start Date End Date Deena Beach APRN, PERSONNEL CLERK [address] [place] [address] PCP - General Advanced Practice Nurse 09/24/19 documented as of this encounter
--- OUTSIDE RECORDS SUMMARY | 2024-11-07 05:02 | XMS_ITS | Encounter Summary ---
Author Organization [facility] Address [address] [place] [address] Care Team Providers Care Saloonkeeper Name Role Phone Jeb Negron DO Primary Care Provider Encounter Details Date Type Department Care Team (Late st Contact Info) Description 02/19/2002 Outpatient Historical [facility] Primary Care - [address] [place] [address] Jeb Negron DO * Social History [...] on filedocumented in this encounter Care Teams Saloonkeeper Relationship Specialty Start Date End Date Jeb Negron DO * PCP - General 12/20/02 documented as of this encounter
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
--- OUTSIDE RECORDS SUMMARY | 2024-11-07 05:02 | XMS_ITS | Encounter Summary ---
Author Organization [facility] Care Team Providers Care Cloth Mercerizer Back Tender Name Role Phone Deena Beach APRN, CNP Primary Care P kayyder Encounter Details Date Type Department Care Team (Latest Contact Info) Description 10/18/2020 Travel Social History Tobacco Use Types Packs/Day [...] COVID-19? No / Unsure 10/18/2020 9:16 AM INTERNATIONAL EXCHANGE COORDINATOR documented as of this encounter Plan of Treatment Upcoming Encounters Date Type Department Care Team (Late st Contact Info) Description 11/08/2024 2:00 PM INTERNATIONAL EXCHANGE COORDINATOR Office Visit [facility] - Primary Care - Georgina [address] [place] [id number] Almaz Sin APRN, CNP [address] [place] [address] documented as of this encounter Visit Diagnoses Not on filedocumented in this encounter Care Teams Cloth Mercerizer Back Tender Relationship Specialty Start Date End Date Deena Beach APRN, TALENT SPECIALIST [address] [place] [address] PCP - General Advanced Practice Nurse 09/24/19 documented as of this encounter
--- OUTSIDE RECORDS SUMMARY | 2024-11-07 05:02 | XMS_ITS | Encounter Summary ---
Author Organization [facility] Address [address] [place] [address] Care Team Providers Care Manager Editorial Name Role Phone Jeb Negron DO Primary Care Provider [phone] Encounter Details Date Type Department Care Team (Latest Contact Info) Description 12/20/2002 Outpatient Historical [facility] Jeb Negron DO * HAND INJURY NOS (Primary Dx) Social History Tobacco Use Types Packs/Day Years Used Date Smoking Tobacco: Never Assessed Sex and Gender Information Value Date Recorded Sex Assigned at Not on file Gender Identity Not on file Sexual Orientation Not on file documented as of this encounter Plan of Treatment Not on file documented as of this encounter Visit Diagnoses Diagnosis Injury, other and unspecified, hand, except finger- Primary documented in this encounter Care Teams Manager Editorial Relationship Specialty Start Date End Date Jeb Negron DO * PCP - General 12/20/02 documented as of this encounter
--- OUTSIDE RECORDS SUMMARY | 2024-11-07 05:02 | XMS_ITS | Encounter Summary ---
Author Organization [facility] Care Team Providers Care Cattle Sticker Name Role Phone Deena Beach APRN, MYRNA Primary Care P veronicashadi Encounter Details Date Type Department Care Team (Latest Contact Info) Description 10/24/2020 Travel Social History Tobacco Use Types Packs/Day [...] COVID-19? No / Unsure 10/24/2020 4:58 PM RELATIONSHIP ASSOCIATE documented as of this encounter Plan of Treatment Upcoming Encounters Date Type Department Care Team (Late st Contact Info) Description 11/08/2024 2:00 PM RELATIONSHIP ASSOCIATE Office Visit [facility] - Primary Care - Georgina [address] [place] [address] Almaz Sin APRN, ASSISTANT WOMEN'S ROWING COACH [address] [place] [address] documented as of this encounter Visit Diagnoses Not on filedocumented in this encounter Care Teams Cattle Sticker Relationship Specialty Start Date End Date Deena Beach, PASTORAL MINISTRIES PROFESSOR, ASSISTANT WOMEN'S ROWING COACH [address] [place] [address] PCP - General Advanced Practice Nurse 09/24/19 documented as of this encounter
== END 2024-10-31 17:20 | disposition home or self-care (01) ==
PROVIDERS: Emergency Provider Emergency Medicine; PCP Hospitalist
DX: L03.311 Cellulitis of abdominal wall (principal); Z93.1 Gastrostomy status; Z87.891 Personal history of nicotine dependence
CPT/HCPCS: 36415; 80053; 85025; 99283; A9270